=== PATIENT | female | born 1945 | race Caucasian/White ===

== ENCOUNTER 2016-03-07 07:52 | Day surgery (SDC) | payer MEDICARE, OTHER ==
[2016-03-01 11:08] VITALS: BMI 27.3
[2016-03-07] MEDS ORDERED: ASPIRIN 325 MG TAB PO STA (07:58)
[2016-03-07] MEDS ORDERED: NITROGLYCERIN SL TABS 0.4 MG TAB SUBLINGUAL PRN (07:58)
[2016-03-07] MEDS ORDERED: ATORVASTATIN 80 MG TAB PO STA (07:58)
[2016-03-07] MEDS ORDERED: ALPRAZolam 0.25 MG TAB PO PRN (07:58)
[2016-03-07] MEDS ORDERED: SODIUM CHLORIDE 0.9% 1,000 ML in EMPTY BAG 1 BAG IV ONE (07:58)
[2016-03-07] MEDS ORDERED: ALPRAZolam 0.5 MG TAB PO PRN (07:58)
[2016-03-07 08:25] VITALS: PULSE 81; RESP 20; TEMP 98.2
[2016-03-07] MEDS ORDERED: LIDOCAINE 2% INJ 20 MG/ML (20 ML MDV) ONE (09:56)
[2016-03-07] MEDS ORDERED: MIDAZOLAM 2 MG/2 ML VIAL ONE ×2 (09:56→10:17)
[2016-03-07] MEDS ORDERED: VERAPAMIL 2.5 MG/ML 2 ML AMP ONE (09:56)
[2016-03-07] MEDS ORDERED: diphenhydrAMINE 50 MG/ML 1 ML VIAL ONE (09:56)
[2016-03-07] MEDS ORDERED: SODIUM CHLORIDE 0.9% (PF) 10 ML VIAL ONE (09:57)
[2016-03-07] MEDS ORDERED: LIDOCAINE 2% INJ 20 MG/ML SQ ONE (10:13)
[2016-03-07] MEDS: VERAPAMIL SYRINGE (5 MG/10 ML) INTRAARTER ONE ×2 (10:13→10:24)
[2016-03-07] MEDS ORDERED: MIDAZOLAM 2 MG/2 ML VIAL IV ONE ×2 (10:13→10:18)
[2016-03-07] MEDS ORDERED: diphenhydrAMINE 50 MG/ML 1 ML VIAL IVP ONE (10:13)
[2016-03-07] MEDS ORDERED: HEPARIN SODIUM 1,000 UNIT/ML VIAL ONE (10:15)
[2016-03-07] MEDS ORDERED: HYDROmorphone 2 MG/ML 1 ML SYRINGE ONE (10:22)
[2016-03-07] MEDS ORDERED: IOHEXOL 350 MG/ML 100 ML BOTTLE INTRATHECA ONE (10:24)
[2016-03-07] MEDS ORDERED: HYDROmorphone 2 MG/ML 1 ML SYRINGE IV ONE (10:24)
[2016-03-07] MEDS ORDERED: SODIUM CHLORIDE 0.9% 1,000 ML IV ONE (10:25)
[2016-03-07] MEDS ORDERED: RX INFO: IV CONTRAST WAS GIVEN 1 EACH MISC MISCELLANE PRN (10:31)
[2016-03-07] MEDS ORDERED: SODIUM CHLORIDE 0.9% 1,000 ML IV SCH (10:45)
--- NOTE | 2016-03-07 10:45 | LTR ---
March 07, 2016 RE: Corky Cesia Hudson Dear Dr. Gonzalez: Ms. Cesia Fried underwent a heart catheterization and showed normal coronaries. I want to thank you for allowing me to participate in her care. Please do not hesitate to call if you have any questions or concerns. Sincerely, MIKE BUCKLEY MD
--- NOTE | 2016-03-07 10:50 | CC ---
DATE OF SERVICE: 03/07/2016 PERFORMING PHYSICIAN: Grayson Allen MD, youth services librarian. PROCEDURE PERFORMED: Selective right and left coronary angiogram. INDICATION: This is a pleasant 71-year-old female patient with a known COPD, who underwent a stress test recently in the office showed apical ischemia. The heart cath is to rule out any severe underlying CAD. APPROACH: Right radial artery. COMPLICATIONS: None. LEVEL OF SEDATION: Moderate. PROCEDURE DESCRIPTION: After obtaining an informed consent, the patient was brought to the cardiac assistant laboratory director. Right radial artery was cannulated using micropuncture technique. The micropuncture wire passed easily, then I placed a 6 Faroese sheath in the right radial artery. Subsequently I gave the patient 2 mg of verapamil IA and 3000 units of heparin IV. Subsequently, I did selective right and left coronary angiogram using JR4 and JL3 catheters. The procedure was completed without any complication. SELECTIVE CORONARY ANGIOGRAM: 1. The right coronary artery is a large-caliber vessel and it is a dominant vessel. It is angiographically normal. Distally bifurcates into PDA and PLV branches; both are angiographically normal. 2. The left main is a short left main, but angiographically normal. It bifurcates into the left circumflex and left anterior descending artery. 3. The left circumflex is a large-caliber vessel and it is a nondominant vessel. The proximal circumflex is angiographically normal. The mid circumflex is normal and gives rise into the first OM branch, which is a large-caliber vessel, seems to be angiographically normal. 4. The left anterior descending artery, the proximal LAD is angiographically normal. It gives rises into the first diagonal, which seems to be angiographically normal. The mid LAD is angiographically normal, but becomes tortuous. The LAD seems to be angiographically as well normal. CONCLUSION: 1. Normal coronary angiogram. 2. Short left main artery. 3. Dominant right coronary artery. POSTPROCEDURE MANAGEMENT: 1. Maximize medical treatment. 2. Follow up with the patient.
[2016-03-07 15:08] VITALS: BP 128/80
== END 2016-03-07 15:45 | disposition home or self-care (01) ==
LOC: CATHCVL 07:52
PROVIDERS: ATTEND Internal Medicine Interventional Cardiology
DX: R07.2 Precordial pain (principal); I47.1 Supraventricular tachycardia; I77.1 Stricture of artery; I10 Essential (primary) hypertension; J44.9 Chronic obstructive pulmonary disease, unspecified; E78.5 Hyperlipidemia, unspecified; J96.10 Chronic respiratory failure, unspecified whether with hypoxia or hypercapnia; Z99.81 Dependence on supplemental oxygen; Z87.891 Personal history of nicotine dependence; Z79.51 Long term (current) use of inhaled steroids; Z79.52 Long term (current) use of systemic steroids; Z79.899 Other long term (current) drug therapy
CPT/HCPCS: 93454; C1894; J2001; J2250; J1170; J1200; Q9967; J1644

== ENCOUNTER → 2016-03-21 | Outpatient (CLI) | payer MEDICARE, OTHER ==
--- NOTE | 2016-03-21 14:52 | CT ---
EXAMINATION TYPE: CT chest wo con DATE OF EXAM: 03/21/2016 1:13 PM COMPARISON: 02/15/2016 and 02/25/2015 HISTORY: 71 year-old female shortness of breath and cough TECHNIQUE: Contiguous axial scanning of the chest without IV contrast. Coronal and sagittal reconstru ctions performed. CT DLP: 251.6 mGycm Automated exposure control for dose reduction was used. FINDINGS: Heart is normal size without pericardial effusion. Coronary vessel calcifications are present and are remarkable for coronary artery disease. Ascending aorta is mildly ectatic at 3.6 cm with bovine configuration to the aortic arch. No thoracic lymphadenopathy seen. Moderate centrilobular emphysema and mild diffuse bronchial wall thickening And some patchy and strandy peripheral densities probably represent pleural parenchymal scarring. Quan e of these have resolved from the recent prior and some of the nodular densities at the peripheral ri ght base shows some interval improvement. Some minimal residual peripheral tree-in-bud opacities remain in the right lower lobe and peripheral right upper lobe at the midlung level but show improvement from the recent prior. Few scattered calcified granulomas are present. Visualized upper abdomen shows small hiatal hernia and cholelithiasis. Previously seen Lutz's arleen ia is not included on this exam. Bones: Mild endplate spondylosis lower thoracic spine. No osseous destructive process. Some chronic s uperior endplate Schmorl's nodes in the upper third thoracic spine. IMPRESSION: 1. REDEMONSTRATED COPD WITH SCATTERED AREAS OF PLEURAL-PARENCHYMAL SCARRING. 2. SOME OF THE PATCHY PERIPHERAL RIGHT BASILAR OPACITIES HAVE RESOLVED IN THE INTERVAL SUGGESTING CRISTIN ARING OF INFECTIOUS/INFLAMMATORY INFILTRATES OR AREAS OF ATELECTASIS. 3. THERE ARE SOME RESIDUAL TREE-IN-BUD OPACITIES IN THE RIGHT LUNG. THESE HAVE ALSO SHOWN SLIGHT INTE RVAL IMPROVEMENT. SOME DIFFERENTIAL CONSIDERATIONS PROVIDED ON THE 02/15/2016 EXAM.
== END | disposition home or self-care (01) ==
LOC: RADCTMAIN 12:55
PROVIDERS: ATTEND Internal Medicine
DX: J44.9 Chronic obstructive pulmonary disease, unspecified (principal); J98.4 Other disorders of lung; R91.8 Other nonspecific abnormal finding of lung field
CPT/HCPCS: 71250

== ENCOUNTER → 2016-06-20 | Outpatient (CLI) | payer MEDICARE, OTHER ==
--- NOTE | 2016-06-20 13:21 | CT ---
EXAMINATION TYPE: CT chest wo con DATE OF EXAM: 06/20/2016 12:15 PM COMPARISON: Chest CT March 21, 2016 HISTORY: SOB cough. CT DLP: 312.5 mGycm. Automated Exposure Control for Dose Reduction was Utilized. TECHNIQUE: CT scan of the thorax is performed without IV contrast. FINDINGS: LUNGS: Mild to moderate underlying emphysematous changes are redemonstrated. There is no suspicious n ew groundglass opacity or focal consolidation. Mild cylindrical bronchiectatic changes in the right l ower lobe is felt present. No suspicious greater than 4 mm noncalcified parenchymal nodule or mass is seen bilaterally. No pleural effusion or pneumothorax is noted. Some right-sided volume loss is felt present and stable. Some scattered right hilar and basilar scarring is noted. Some patchy peripheral opacities posterior right lower lobe remain present near axial image 34. MEDIASTINUM: Lack of IV contrast is noted to limit evaluation for mediastinal and especially hilar ad enopathy. There are no definitive greater than 1 cm hilar or mediastinal lymph nodes. No cardiomega ly or pericardial effusion is seen. Some coronary artery calcification is again seen. Bovine aortic a rch is redemonstrated which is normal variant. There is mild calcified plaque of the visualized aorta . Ascending aorta measures 3.7 cm in diameter on axial image 26 felt stable. OTHER: Dependent calcified small gallstones are redemonstrated. There is probable 2.5 cm duodenal div erticulum partially imaged on axial image 63. IMPRESSION: Mild to moderate emphysematous change with scattered areas of scarring, no new infiltrate is present.
== END ==
LOC: RADCTMAIN 11:47
PROVIDERS: ATTEND Internal Medicine
DX: J43.9 Emphysema, unspecified (principal)
CPT/HCPCS: 71250

== ENCOUNTER → 2017-03-12 | Outpatient (CLI) | payer MEDICARE, OTHER ==
--- NOTE | 2017-03-12 16:31 | US ---
EXAMINATION TYPE: US transvaginal DATE OF EXAM: 03/12/2017 COMPARISON: NONE CLINICAL HISTORY: N95.0 Postmenopausal bleeding,Z68.29 BMI 29.0-29.9. Patient stated has had intermit tent vaginal bleeding x 5 years; COPD; ; bilateral ovary removed per patient; had abscess/adhesio ns RT adnexa TECHNIQUE: Transabdominal (TA) Date of LMP: post menopausal EXAM MEASUREMENTS: Uterus: 8.4 x 6.3 x 4.7 cm Endometrial Stripe: 3.2 cm Right Ovary: surgically removed Left Ovary: surgically removed 1. Uterus: Anteverted; couple of round complex masses (fibroids) imaged with larger upper right = 1. 9 x 2.4 x 1.9cm and lower left = 1.0 x 1.0 x 1.1cm 2. Endometrium: abnormally thickened with complex appearance entire endometrial cavity = 6.5 x 4.3 x 3.2cm with internal vascularity seen in contents 3. Right Ovary: not identified 4. Left Ovary: none seen 5. Bilateral Adnexa: complex mass with calcifications noted adjacent to uterus = 3.6 x 5.1 x 3.9cm ( possible adnexal mass vs exophytic uterine fibroid 6. Posterior cul-de-sac: wnl IMPRESSION: 1. Significantly thickened and abnormal appearance of the endometrium. Direct visualization is recomm ended to exclude underlying malignancy. 2. Possible uterine leiomyomas. Masses of other etiology not excluded. 3. Complex right adnexal mass. Underlying malignancy not excluded.
== END | disposition home or self-care (01) ==
LOC: RADUSWWP 15:36
PROVIDERS: ATTEND Family Medicine
DX: R93.8 Abnormal findings on diagnostic imaging of other specified body structures (principal); R19.09 Other intra-abdominal and pelvic swelling, mass and lump; N95.0 Postmenopausal bleeding
CPT/HCPCS: 76830

== ENCOUNTER 2017-04-20 11:06 | Inpatient (IN) | payer MEDICARE, OTHER ==
[2017-04-20] MEDS ORDERED: TOPICAL SKIN ADHESIVE 1 EACH AMP TOPICAL ONE (11:46)
--- NOTE | 2017-04-20 11:46 | ED ---
General Adult HPI - General Chief complaint: Syncope Stated complaint: Syncope Time Seen by Provider: 04/20/17 11:27 Source: patient, RN notes reviewed Mode of arrival: EMS Limitations: no limitations - History of Present Illness Initial comments: Patient is a pleasant 72-year-old female presenting to the emergency department following syncopal episode. Patient was going to shower when she woke up on the floor. Patient did strike her head. Patient does have moderate headache. No weakness. Patient also complains of some discomfort of the left hip and left lower abdomen. No chest pain or dyspnea. Patient is pending uterine biopsy at [facility] for further evaluation. - Related Data Home Medications Medication Instructions Recorded Confirmed Lisinopril 40 mg PO DAILY 02/20/15 04/20/17 Sertraline HCl [Zoloft] 50 mg PO DAILY 02/20/15 04/20/17 Simvastatin [Zocor] 40 mg PO HS 02/20/15 04/20/17 Albuterol Sulfate [Proair Hfa] 2 puff INHALATION RT-Q4H PRN 03/01/16 04/20/17 Diltiazem Cd [Cardizem CD] 240 mg PO DAILY 03/01/16 04/20/17 Flaxseed Oil [Arvonia-3 Flaxseed Oil] 1,000 mg PO DAILY 03/01/16 04/20/17 Furosemide [Lasix] 20 mg PO DAILY PRN 03/01/16 04/20/17 Ipratropium/Albuterol Sulfate 1 puff INHALATION RT-QID 03/01/16 04/20/17 [Combivent Respimat Inhaler] Melatonin 3 mg PO HS 03/01/16 04/20/17 Montelukast Sodium [Singulair] 10 mg PO HS 03/01/16 04/20/17 Arvonia-3 Fatty Acids/Fish Oil [Fish 1 each PO DAILY 03/01/16 04/20/17 Oil 1,000 mg Softgel] Ranitidine HCl [Zantac] 150 mg PO BID 03/01/16 04/20/17 predniSONE 10 mg PO DAILY 03/01/16 04/20/17 Budesonide [Pulmicort] 0.5 mg INHALATION RT-BID 04/20/17 04/20/17 Prasterone (Dhea) [Dhea] 50 mg PO DAILY 04/20/17 04/20/17 Previous Rx's Medication Instructions Recorded ALPRAZolam [Xanax] 0.5 mg PO TID PRN #20 tab 03/02/15 Allergies Allergy/AdvReac Type Severity Reaction Status Date / Time No Known Allergies Allergy Verified 04/20/17 11:42 Review of Systems ROS Statement: Those systems with pertinent positive or pertinent negative responses have been documented in the HPI. ROS Other: All systems not noted in ROS Statement are negative. Constitutional: Denies: fever Eyes: Denies: eye pain ENT: Denies: ear pain Respiratory: Denies: cough Cardiovascular: Denies: chest pain Endocrine: Denies: fatigue Gastrointestinal: Reports: abdominal pain Genitourinary: Denies: dysuria Musculoskeletal: Denies: back pain Skin: Denies: rash Neurological: Reports: headache. Denies: weakness, confusion Past Medical History Past Medical History: Asthma, Chest Pain / Angina, COPD, GERD/Reflux, Hyperlipidemia, Hypertension, Pneumonia Additional Past Medical History / Comment(s): hx migraine, oxygen NC @2L continuous, gallstones, anemia, History of Any Multi-Drug Resistant Organisms: None Reported Past Surgical History: Heart Catheterization, Hernia Repair, Orthopedic Surgery , Tonsillectomy Additional Past Surgical History / Comment(s): left elbow surgery, abscess in stomach area, abdominial scar tissue, tamie oophorectomy, left knee surgery, Past Anesthesia/Blood Transfusion Reactions: No Reported Reaction Past Psychological History: Anxiety, Depression Smoking Status: Former smoker Past Alcohol Use History: None Reported Past Drug Use History: None Reported - Past Family History Mother Family Medical History: No Reported History Father Family Medical History: CVA/TIA, Myocardial Infarction ([place]) General Exam Limitations: no limitations General appearance: alert, in no apparent distress Head exam: Present: other (Left eyebrow laceration) Eye exam: Present: normal appearance, PERRL, EOMI ENT exam: Present: normal oropharynx Neck exam: Present: normal inspection. Absent: tenderness Respiratory exam: Present: normal lung sounds bilaterally Cardiovascular Exam: Present: regular rate, normal rhythm GI/Abdominal exam: Present: soft, tenderness (Mild tenderness suprapubic and left lower quadrant). Absent: distended Extremities exam: Present: other (Mild tenderness left hip. Pain with active range of motion.) Neurological exam: Present: alert, oriented X3, CN II-XII intact. Absent: motor sensory deficit Expanded Neurological exam: Present: protecting the airway Patient oriented to: Present: person, place, time Speech: Present: fluid speech Cranial nerves: EOM's Intact: Normal Sensory exam: Upper Extremity Light Touch: Normal, Lower Extremity Light Touch: Normal Motor strength exam: RUE: 5, LUE: 5, RLE: 5, LLE: 5 Eye Response: (4) open spontaneously Motor Response: (6) obeys commands Verbal Response: (5) oriented Psychiatric exam: Present: normal affect, normal mood Skin exam: Present: normal color Course Vital Signs 04/20/17 04/20/17 11:24 14:12 Temperature 97.5 F L Pulse Rate 75 82 Respiratory 18 18 Rate Blood Pressure 149/73 133/61 O2 Sat by Pulse 96 98 Oximetry - Reevaluation(s) Reevaluation #1: 04/20/17 13:12 Patient reevaluated and updated. Patient had previously refused pain medication however is acceptable to her at this time. EKG Findings - EKG Comments: EKG Findings:: Normal sinus rhythm 68. IA 164. QRS 84. QT 320. QTc 446. Normal axis. Normal QRS. No acute ST change. Procedures - Laceration Laceration #1 Consent Obtained: verbal consent Time Out Performed: Yes Indication: laceration Site: face Size (cm): 3 Description: linear Depth: simple, single layer Pre-repair: irrigated extensively Type of Sutures: other (Closed with Dermabond) Patient Tolerated Procedure: well, no complications Medical Decision Making - Medical Decision Making Patient was updated on results and plan. Case was discussed with Dr. Rob, who will admit for Dr. Henning. Orthopedics will be consult. - Lab Data Result diagrams: 04/20/17 11:20 04/20/17 11:20 Lab Results 04/20/17 04/20/17 04/20/17 Range/Units 11:20 11:20 11:20 WBC 14.4 H (3.8-10.6) k/uL RBC 4.38 (3.80-5.40) m/uL Hgb 13.3 (11.4-16.0) gm/dL Hct 41.7 (34.0-46.0) % MCV 95.2 (80.0-100.0) fL MCH 30.3 (25.0-35.0) pg MCHC 31.8 (31.0-37.0) g/dL RDW 13.0 (11.5-15.5) % Plt Count 289 (150-450) k/uL Neutrophils % 89 % Lymphocytes % 7 % Monocytes % 2 % Eosinophils % 0 % Basophils % 0 % Neutrophils # 12.8 H (1.3-7.7) k/uL Lymphocytes # 1.0 (1.0-4.8) k/uL Monocytes # 0.4 (0-1.0) k/uL Eosinophils # 0.1 (0-0.7) k/uL Basophils # 0.1 (0-0.2) k/uL PT (9.0-12.0) sec INR (<1.2) APTT (22.0-30.0) sec Sodium 142 (137-145) mmol/L Potassium 4.3 (3.5-5.1) mmol/L Chloride 103 (98-107) mmol/L Carbon Dioxide 31 H (22-30) mmol/L Anion Gap 8 mmol/L BUN 18 H (7-17) mg/dL Creatinine 0.64 (0.52-1.04) mg/dL Est GFR (MDRD) Af Amer >60 (>60 ml/min/1.73 sqM) Est GFR (MDRD) Non-Af >60 (>60 ml/min/1.73 sqM) Glucose 112 H (74-99) mg/dL Calcium 9.3 (8.4-10.2) mg/dL Total Bilirubin 0.2 (0.2-1.3) mg/dL AST 21 (14-36) U/L ALT 36 (9-52) U/L Alkaline Phosphatase 48 (38-126) U/L Total Creatine Kinase 46 (30-135) U/L CK-MB (CK-2) 1.0 (0.0-2.4) ng/mL CK-MB (CK-2) Rel Index 2.2 Troponin I <0.012 (0.000-0.034) ng/mL Total Protein 6.1 L (6.3-8.2) g/dL Albumin 3.7 (3.5-5.0) g/dL 02/23/18 Range/Units 11:20 WBC (3.8-10.6) k/uL RBC (3.80-5.40) m/uL Hgb (11.4-16.0) gm/dL Hct (34.0-46.0) % MCV (80.0-100.0) fL MCH (25.0-35.0) pg MCHC (31.0-37.0) g/dL RDW (11.5-15.5) % Plt Count (150-450) k/uL Neutrophils % % Lymphocytes % % Monocytes % % Eosinophils % % Basophils % % Neutrophils # (1.3-7.7) k/uL Lymphocytes # (1.0-4.8) k/uL Monocytes # (0-1.0) k/uL Eosinophils # (0-0.7) k/uL Basophils # (0-0.2) k/uL PT 9.7 (9.0-12.0) sec INR 1.0 (<1.2) APTT 22.1 (22.0-30.0) sec Sodium (137-145) mmol/L Potassium (3.5-5.1) mmol/L Chloride (98-107) mmol/L Carbon Dioxide (22-30) mmol/L Anion Gap mmol/L BUN (7-17) mg/dL Creatinine (0.52-1.04) mg/dL Est GFR (MDRD) Af Amer (>60 ml/min/1.73 sqM) Est GFR (MDRD) Non-Af (>60 ml/min/1.73 sqM) Glucose (74-99) mg/dL Calcium (8.4-10.2) mg/dL Total Bilirubin (0.2-1.3) mg/dL AST (14-36) U/L ALT (9-52) U/L Alkaline Phosphatase (38-126) U/L Total Creatine Kinase (30-135) U/L CK-MB (CK-2) (0.0-2.4) ng/mL CK-MB (CK-2) Rel Index Troponin I (0.000-0.034) ng/mL Total Protein (6.3-8.2) g/dL Albumin (3.5-5.0) g/dL - Radiology Data Radiology results: report reviewed (Computed tomography scan of the abdomen and pelvis shows fluid within the endometrium. Abdominal wall hernia. Sub-xiphoid region with short segment of transverse colon. Computed tomography scan of the brain shows no acute abnormality.), image reviewed (Two-view chest x-ray shows no acute process. X-ray of the left hip and pelvis shows nondisplaced left femoral neck fracture.) Disposition Clinical Impression: Syncope, Hip fracture Disposition: ADMITTED IP TO THIS [facility] Referrals: Tory Gonzalez MD [Primary Care Provider] - 1-2 days Decision Time: 14:20
[2017-04-20] MEDS ORDERED: RX INFO: IV CONTRAST WAS GIVEN 1 EACH MISC MISCELLANE PRN (11:47)
[2017-04-20 11:57] LABS: Basophils # (A) 0.1 k/uL (0-0.2); Basophils % (A) 0 %; Eosinophils # (A) 0.1 k/uL (0-0.7); Eosinophils % (A) 0 %; HCT 41.7 % (34.0-46.0); HGB 13.3 gm/dL (11.4-16.0); Lymphocytes % (A) 7 %; MCH 30.3 pg (25.0-35.0); MCHC 31.8 g/dL (31.0-37.0); MCV 95.2 fL (80.0-100.0); Mean Platelet Volume 6.9; Monocytes # (A) 0.4 k/uL (0-1.0); Monocytes % (A) 2 %; Neutrophils # (A) 12.8 k/uL (1.3-7.7); Neutrophils % (A) 89 %; Platelet Count 289 k/uL (150-450); RBC 4.38 m/uL (3.80-5.40); WBC 14.4 k/uL (3.8-10.6)
[2017-04-20 12:07] LABS: ALT 36 U/L (9-52); AST 21 U/L (14-36); Albumin 3.7 g/dL (3.5-5.0); Alkaline Phosphatase 48 U/L (38-126); Anion Gap 8 mmol/L; Blood Urea Nitrogen 18 mg/dL (7-17); Calcium 9.3 mg/dL (8.4-10.2); Carbon Dioxide 31 mmol/L (22-30); Chloride 103 mmol/L (98-107); Glucose 112 mg/dL (74-99); Potassium 4.3 mmol/L (3.5-5.1); Sodium 142 mmol/L (137-145); Total Bilirubin 0.2 mg/dL (0.2-1.3); Total Protein 6.1 g/dL (6.3-8.2)
[2017-04-20 12:09] LABS: Partial Thromboplastin Time 22.1 sec (22.0-30.0); Prothrombin Time 9.7 sec (9.0-12.0)
[2017-04-20 12:21] LABS: Creatine Kinase 46 U/L (30-135)
[2017-04-20 12:34] LABS: Troponin I <0.012 ng/mL (0.000-0.034)
--- NOTE | 2017-04-20 12:35 | XR ---
EXAMINATION TYPE: XR chest 1V DATE OF EXAM: 04/20/2017 COMPARISON: Prior chest x-ray 04/21/2015 HISTORY: Syncope TECHNIQUE: Single frontal view of the chest is obtained. FINDINGS: The patient is rotated. There are overlying cardiac leads. Prominent lung volume may be ind icative of underlying COPD. There is no focal air space opacity, pleural effusion, or pneumothorax se en. The cardiac silhouette size is within normal limits. The osseous structures are intact. IMPRESSION: No acute process. Rotated exam. Follow-up as indicated.
--- NOTE | 2017-04-20 12:37 | XR ---
EXAMINATION TYPE: XR Hip LT and AP Pelvis DATE OF EXAM: 04/20/2017 COMPARISON: None HISTORY: Trauma and pain TECHNIQUE: A single AP view of the pelvis is obtained. Two views of the left hip are obtained. FINDINGS: Nondisplaced left femoral neck fracture is present. There is no dislocation. Bone mineraliz ation is reduced. Calcifications in the right hemipelvis may be due to fibroid uterus. Osteoarthritic change noted to the right hip. IMPRESSION: Nondisplaced left femoral neck fracture.
[2017-04-20] MEDS ORDERED: MORPHINE SULFATE 4 MG/ML SYRINGE IVP STA (13:13)
--- NOTE | 2017-04-20 13:53 | CT ---
EXAMINATION TYPE: CT brain wo con DATE OF EXAM: 04/20/2017 COMPARISON: NONE HISTORY: Patient complains of syncopal episode. CT DLP: 790.4 mGycm Automated exposure control for dose reduction was used. Helical acquisition through the brain. FINDINGS: There is no hemorrhage or hydrocephalus. Cerebral vascular calcifications are present. Brain density is maintained. Mild atrophy is likely age-related. Calvarium is intact. Paranasal sinuses and mastoid air cells as visualized are normal. IMPRESSION: NO ACUTE ABNORMALITIES EVIDENT, CONSIDER FOLLOW-UP INDICATED.
--- NOTE | 2017-04-20 14:03 | CT ---
EXAMINATION TYPE: CT abdomen pelvis w con DATE OF EXAM: 04/20/2017 COMPARISON: NONE HISTORY: Patient complains of left flank pain post syncopal episode. CT DLP: 761.9 mGycm Automated exposure control for dose reduction was used. TECHNIQUE: Helical acquisition of images from the lung bases through the pelvis have been completed. CONTRAST: Performed with Oral Contrast and with IV Contrast, patient injected with 100 mL of Omnipaque 300. FINDINGS: LUNG BASES: No significant abnormality is appreciated. AORTA: No significant abnormality is appreciated. LIVER/GB: Gallbladder shows dependent high density compatible with stones. Liver shows no mass. PANCREAS: No significant abnormality is seen. SPLEEN: No significant abnormality is seen. ADRENALS: No significant abnormality is seen. KIDNEYS: No significant abnormality is seen. REPRODUCTIVE ORGANS: The uterus is enlarged. There is fluid within the uterus. Multiple fibroids, bernardo cification associated with the fibroids noted. BOWEL: Extensive diverticular changes associated with the sigmoid colon. No evident bowel obstructio n. Anterior abdominal wall shows a small hernia with a short segment of transverse colon within the h ernia, no evident bowel obstruction however. Small duodenal diverticulum is suspected at the junction between the second and third portion of the duodenum at the level of the head of pancreas. Left lowe r quadrant shows a small anterior abdominal wall hernia containing fat. FREE AIR: No Free Air visible. ASCITES: None visible. PELVIC ADENOPATHY: None visualized. RETROPERITONEAL ADENOPATHY: No Retroperitoneal Adenopathy visible. URINARY BLADDER: No significant abnormality is seen. OSSEOUS STRUCTURES: No significant abnormality is seen. IMPRESSION: ABNORMAL FLUID WITHIN THE ENDOMETRIUM WITH MULTIPLE AREAS OF PROBABLE FIBROID UTERUS. RECOMMEND LAND ACQUISITION ANALYST C ONSULT, CONSIDER ENDOMETRIAL BIOPSY. ANTERIOR ABDOMINAL WALL HERNIA CONTAINS FAT IN THE LEFT LOWER QU ADRANT, IN THE SUBXIPHOID REGION THERE IS A FOCUS THAT CONTAINS SOME SHORT SEGMENT OF TRANSVERSE COLO N. CORRELATE TO EXCLUDE INCARCERATION. Cholelithiasis.
[2017-04-20] MEDS ORDERED: NALOXONE 0.4 MG/ML 1 ML VIAL IV PRN (14:20)
[2017-04-20] MEDS: SODIUM CHLORIDE 0.9% 1,000 ML IV SCH ×3 (15:03→18:36)
[2017-04-20 15:06] LABS: Appearance,Urine Clear (Clear); Bacteria,Urine Rare /hpf; Bilirubin,Urine Negative (Negative); Blood,Urine Negative (Negative); Color,Urine Yellow; Glucose,Urine (UA) Negative (Negative); Ketones,Urine Negative (Negative); Leukocyte Esterase,Urine Trace (Negative); Nitrite,Urine Negative (Negative); Protein,Urine Negative (Negative); RBC,Urine 1 /hpf (0-5); Squamous Epithelial Cell,Urine 4 /hpf (0-4); Urobilinogen,Urine <2.0 mg/dL (<2.0); WBC,Urine 8 /hpf (0-5)
[2017-04-20 15:51] VITALS: BMI 28.7
[2017-04-20 17:26] LABS: Creatine Kinase 67 U/L (30-135)
[2017-04-20 17:37] LABS: Creatine Kinase MB 1.1 ng/mL (0.0-2.4); Troponin I <0.012 ng/mL (0.000-0.034)
[2017-04-20] MEDS ORDERED: ALBUTEROL NEBULIZED 2.5 MG/3 ML INHALATION PRN (17:44)
--- NOTE | 2017-04-20 17:58 | P.HPIM ---
History of Present Illness 72-year-old female presenting to the emergency department following syncopal episode. Patient was going to shower when she woke up on the floor. Patient did strike her head. Patient does have moderate headache. No weakness. Patient also complains of some discomfort of the left hip and left lower abdomen. No chest pain or dyspnea. Patient is pending uterine biopsy at [facility] for further evaluation. Patient's EKG showed normal sinus rhythm patient denied any diarrhea nausea vomiting fever chills patient is comparing of left lower quadrant abdominal pain CAT scan of the abdomen did show uterine fibroids and the possible incarceration but patient does not have any incarcerated ventral hernia and clinical exam patient. Patient is on Cardizem and lisinopril recently Dr. Allen her first cook decreased her antidepressant medications because of dizziness. Patient is on lisinopril 40 mg and Cardizem. Patient is not on anti- correlation she was told that she has some irregular heartbeat because of which she was started on Cardizem. Although there is no documentation of atrial fibrillation. I do not have any echo cardiac exam available. Since patient is on Cardizem I am assuming that her ejection fraction is within normal limits repeat echo cardiac exam will be obtained cardiology was consulted. Patient had a left hip fracture from fall for because of which also surgery was consulted and patient was started on oral for pain with GI prophylaxis. Patient does have COPD he quit smoking years ago has COPD is fairly stable patient is low to intermediate operative risk for left hip surgery Review of Systems REVIEW OF SYSTEMS: CONSTITUTIONAL: No fever, no malaise, no fatigue. HEENT: No recent visual problems or hearing problems. Denied any sore throat. CARDIOVASCULAR: No chest pain, orthopnea, PND, no palpitations, PULMONARY: No shortness of breath, no cough, no hemoptysis. GASTROINTESTINAL: No diarrhea, no nausea, no vomiting, no abdominal pain. Normoactive bowel sounds. NEUROLOGICAL: No headaches, no weakness, no numbness. HEMATOLOGICAL: Denies any bleeding or petechiae. GENITOURINARY: Denies any burning micturition, frequency, or urgency. MUSCULOSKELETAL/RHEUMATOLOGICAL: Left hip pain as mentioned above ENDOCRINE: Denies any polyuria or polydipsia. The rest of the 14-point review of systems is negative. Past Medical History Past Medical History: Asthma, Chest Pain / Angina, COPD, GERD/Reflux, Hyperlipidemia, Hypertension, Pneumonia Additional Past Medical History / Comment(s): oxygen [place] @2L continuous, gallstones, pernicious anemia, History of Any Multi-Drug Resistant Organisms: None Reported Past Surgical History: Hernia Repair, Orthopedic Surgery, Tonsillectomy Additional Past Surgical History / Comment(s): left elbow surgery, abscess in stomach area, abdominial scar tissue, tamie oophorectomy, left knee surgery, Past Anesthesia/Blood Transfusion Reactions: No Reported Reaction Past Psychological History: Anxiety, Depression Smoking Status: Former smoker Past Alcohol Use History: None Reported Additional Past Alcohol Use History / Comment(s): quit smoking 2008, smoked since age 18, 2 PPD Past Drug Use History: None Reported - Past Family History Mother Family Medical History: No Reported History Father Family Medical History: CVA/TIA, Myocardial Infarction ([place]) Medications and Allergies Home Medications Medication Instructions Recorded Confirmed Type Lisinopril 40 mg PO DAILY 02/20/15 04/20/17 History Sertraline HCl [Zoloft] 50 mg PO DAILY 02/20/15 04/20/17 History Simvastatin [Zocor] 40 mg PO HS 02/20/15 04/20/17 History ALPRAZolam [Xanax] 0.5 mg PO TID PRN #20 tab 03/02/15 04/20/17 Rx Albuterol Sulfate [Proair Hfa] 2 puff INHALATION RT-Q4H PRN 03/01/16 04/20/17 History Diltiazem Cd [Cardizem CD] 240 mg PO DAILY 03/01/16 04/20/17 History Flaxseed Oil [[place]-3 Flaxseed Oil] 1,000 mg PO DAILY 03/01/16 04/20/17 History Furosemide [Lasix] 20 mg PO DAILY PRN 03/01/16 04/20/17 History Ipratropium/Albuterol Sulfate 1 puff INHALATION RT-QID 03/01/16 04/20/17 History [Combivent Respimat Inhaler] Melatonin 3 mg PO HS 03/01/16 04/20/17 History Montelukast Sodium [Singulair] 10 mg PO HS 03/01/16 04/20/17 History [place]-3 Fatty Acids/Fish Oil [Fish 1 each PO DAILY 03/01/16 04/20/17 History Oil 1,000 mg Softgel] Ranitidine HCl [Zantac] 150 mg PO BID 03/01/16 04/20/17 History predniSONE 10 mg PO DAILY 03/01/16 04/20/17 History Budesonide [Pulmicort] 0.5 mg INHALATION RT-BID 04/20/17 04/20/17 History Prasterone (Dhea) [Dhea] 50 mg PO DAILY 04/20/17 04/20/17 History Allergies Allergy/AdvReac Type Severity Reaction Status Date / Time No Known Allergies Allergy Verified 04/20/17 11:42 Physical Exam Vitals: Vital Signs Temp Pulse Pulse Resp BP BP Pulse Ox 04/20/17 16:00 97.6 F 70 18 99/60 97 04/20/17 15:12 96.9 F L 72 22 132/72 96 04/20/17 14:59 97.6 F 70 18 99/60 97 04/20/17 14:12 82 18 133/61 98 04/20/17 11:24 97.5 F L 75 18 149/73 96 Intake and Output 04/20/17 04/20/17 04/20/17 06:59 14:59 22:59 Output Total 600 Balance -600 Output: Urine 600 Other: Voiding Method Bedpan # Voids 1 # Bowel Movements 1 Weight 73.482 kg Patient Weight 04/21/17 06:59 Weight 73.482 kg PHYSICAL EXAMINATION: GENERAL: The patient is alert and oriented x3, not in any acute distress. Well developed, well nourished. HEENT: Pupils are round and equally reacting to light. EOMI. No scleral icterus. No conjunctival pallor. Normocephalic, atraumatic. No pharyngeal erythema. No thyromegaly. CARDIOVASCULAR: S1 and S2 present. No murmurs, rubs, or gallops. PULMONARY: Chest is clear to auscultation, no wheezing or crackles. ABDOMEN: Soft, nontender, nondistended, normoactive bowel sounds. No palpable organomegaly. MUSCULOSKELETAL: Deferred to orthopedic surgery EXTREMITIES: No cyanosis, clubbing, or pedal edema. NEUROLOGICAL: Gross neurological examination did not reveal any focal deficits. SKIN: No rashes. Results CBC & Chem 7: 04/20/17 11:20 04/20/17 11:20 Labs: Abnormal Lab Results - Last 24 Hours (Table) 04/20/17 04/20/17 04/20/17 Range/Units 11:20 11:20 14:55 WBC 14.4 H (3.8-10.6) k/uL Neutrophils # 12.8 H (1.3-7.7) k/uL Carbon Dioxide 31 H (22-30) mmol/L BUN 18 H (7-17) mg/dL Glucose 112 H (74-99) mg/dL Total Protein 6.1 L (6.3-8.2) g/dL Ur Leukocyte Esterase Trace H (Negative) Urine WBC 8 H (0-5) /hpf Urine Bacteria Rare H (None) /hpf Thrombosis Risk Factor Assmnt - Choose All That Apply Any of the Below Risk Factors Present?: Yes Each Factor Represents 1 point: Abnormal pulmonary function (COPD), Obesity ( BMI >25) Other Risk Factors: Yes Each Risk Factor Represents 2 Points: Age 61-74 years Other congenital or acquired thrombophilia - If yes, enter type in comment: Yes Each Risk Factor Represents 5 Points: Hip, pelvis, or leg fracture (< 1 month) Thrombosis Risk Factor Assessment Total Risk Factor Score: 9 Thrombosis Risk Factor Assessment Level: High Risk Assessment and Plan Plan: -Syncope: Secondary to hypotension may be medication related lisinopril will be held with concerns of tachycardia patient will be resumed on Cardizem from tomorrow morning patient did take her medications today. Patient will be started on IV fluids because of hypotension I'm assuming her ejection fraction is within normal limits echocardiogram will be obtained. -Left hip fracture patient will be on Pepcid and ketorolac for pain -COPD without any acute exacerbation patient is on systemic steroids at this time along with inhaled treatments which will be continued -Hyperlipidemia Gastroesophageal reflux disease For above-mentioned chronic medical problems patient will be resumed on appropriate home medications
--- NOTE | 2017-04-20 18:04 | P.CNOR ---
History of Present Illness - [facility] Consult date: 04/20/17 Consult reason: fracture (Left hip) History of present illness: This is a 72-year-old female who had a syncopal episode this morning causing her to fall and sustained injury to her left hip. She was seen in the emergency department and admitted to the selective care unit for further evaluation regarding the syncopal episode. We're consulted regarding her left femoral neck fracture. Past Medical History Past Medical History: Asthma, Chest Pain / Angina, COPD, GERD/Reflux, Hyperlipidemia, Hypertension, Pneumonia Additional Past Medical History / Comment(s): oxygen [place] @2L continuous, gallstones, pernicious anemia, History of Any Multi-Drug Resistant Organisms: None Reported Past Surgical History: Hernia Repair, Orthopedic Surgery, Tonsillectomy Additional Past Surgical History / Comment(s): left elbow surgery, abscess in stomach area, abdominial scar tissue, tamie oophorectomy, left knee surgery, Past Anesthesia/Blood Transfusion Reactions: No Reported Reaction Past Psychological History: Anxiety, Depression Smoking Status: Former smoker Past Alcohol Use History: None Reported Additional Past Alcohol Use History / Comment(s): quit smoking 2008, smoked since age 18, 2 PPD Past Drug Use History: None Reported - Past Family History Mother Family Medical History: No Reported History Father Family Medical History: CVA/TIA, Myocardial Infarction ([place]) Medications and Allergies Home Medications Medication Instructions Recorded Confirmed Type Lisinopril 40 mg PO DAILY 02/20/15 04/20/17 History Sertraline HCl [Zoloft] 50 mg PO DAILY 02/20/15 04/20/17 History Simvastatin [Zocor] 40 mg PO HS 02/20/15 04/20/17 History ALPRAZolam [Xanax] 0.5 mg PO TID PRN #20 tab 03/02/15 04/20/17 Rx Albuterol Sulfate [Proair Hfa] 2 puff INHALATION RT-Q4H PRN 03/01/16 04/20/17 History Diltiazem Cd [Cardizem CD] 240 mg PO DAILY 03/01/16 04/20/17 History Flaxseed Oil [[place]-3 Flaxseed Oil] 1,000 mg PO DAILY 03/01/16 04/20/17 History Furosemide [Lasix] 20 mg PO DAILY PRN 03/01/16 04/20/17 History Ipratropium/Albuterol Sulfate 1 puff INHALATION RT-QID 03/01/16 04/20/17 History [Combivent Respimat Inhaler] Melatonin 3 mg PO HS 03/01/16 04/20/17 History Montelukast Sodium [Singulair] 10 mg PO HS 03/01/16 04/20/17 History [place]-3 Fatty Acids/Fish Oil [Fish 1 each PO DAILY 03/01/16 04/20/17 History Oil 1,000 mg Softgel] Ranitidine HCl [Zantac] 150 mg PO BID 03/01/16 04/20/17 History predniSONE 10 mg PO DAILY 03/01/16 04/20/17 History Budesonide [Pulmicort] 0.5 mg INHALATION RT-BID 04/20/17 04/20/17 History Prasterone (Dhea) [Dhea] 50 mg PO DAILY 04/20/17 04/20/17 History Allergies Allergy/AdvReac Type Severity Reaction Status Date / Time No Known Allergies Allergy Verified 04/20/17 11:42 Physical Examination This is a pleasant 72-year-old female in no acute distress. She is alert and oriented 3. Exam of the head neck reveal no obvious deformity. There is some ecchymosis about the left brow line. She has full cervical spine motion without difficulty or pain. There is no pain to palpation about cervical spine or paraspinal musculature. Exam the upper extremities is unremarkable. She has full shoulder, elbow, wrist and finger motion. Neurovascular status to the upper extremities is intact. Exam of the lower extremities reveals no obvious deformity. She is able to move the left leg independently in bed with some pain. There is mild pain with internal and external rotation of the hip. She has full foot and ankle motion bilaterally. Neurovascular status to the lower extremities is intact. Results X-rays of the pelvis and left hip reveal a nondisplaced fracture at the base of the femoral neck. No other fractures identified. - Labs Labs: Abnormal Lab Results - Last 24 Hours (Table) 04/20/17 04/20/17 04/20/17 Range/Units 11:20 11:20 14:55 WBC 14.4 H (3.8-10.6) k/uL Neutrophils # 12.8 H (1.3-7.7) k/uL Carbon Dioxide 31 H (22-30) mmol/L BUN 18 H (7-17) mg/dL Glucose 112 H (74-99) mg/dL Total Protein 6.1 L (6.3-8.2) g/dL Ur Leukocyte Esterase Trace H (Negative) Urine WBC 8 H (0-5) /hpf Urine Bacteria Rare H (None) /hpf H & H 04/20/17 Range/Units 11:20 Hgb 13.3 (11.4-16.0) gm/dL Hct 41.7 (34.0-46.0) % Coagulation 04/20/17 Range/Units 11:20 INR 1.0 (<1.2) Result Diagrams: 04/20/17 11:20 04/20/17 11:20 Assessment and Plan (1) Nondisplaced fracture of neck of left femur Current Visit: Yes Status: Acute Code(s): S72.002A - FRACTURE OF UNSP PART OF NECK OF LEFT FEMUR, INIT SNOMED Code(s): 2657531 (2) Syncope Current Visit: Yes Status: Acute Code(s): R55 - SYNCOPE AND COLLAPSE SNOMED Code(s): 978956348 Plan: The clinical and x-ray findings are discussed with the patient. Treatment options are discussed including surgical intervention with percutaneous pinning versus femoral head replacement. The patient is at increased risk for delayed healing or nonunion secondary to her daily prednisone use and home oxygen, which makes her a poor candidate for percutaneous pinning of the hip. It is recommended that she undergo hemiarthroplasty of the left hip.the procedures been discussed in detail including the possible risks and outcomes of surgery. We are planning OR for Sunday morning if cleared medically.
[2017-04-20] MEDS: KETOROLAC 30 MG/ML 1 ML VIAL IVP PRN ×2 (18:35→23:57)
[2017-04-20] MEDS: ATORVASTATIN 20 MG TAB PO SCH (20:05)
[2017-04-20] MEDS: FAMOTIDINE 20 MG TAB PO SCH (20:05)
[2017-04-20] MEDS: IPRATROPIUM-ALBUTEROL 3 ML NEB INHALATION SCH (20:46)
[2017-04-20] MEDS: BUDESONIDE 0.5 MG/2 ML NEBU INHALATION SCH (20:46)
[2017-04-20] MEDS: MELATONIN 3 MG TABLET PO SCH (21:51)
[2017-04-21 00:38] LABS: Creatine Kinase 83 U/L (30-135)
[2017-04-21 00:51] LABS: Troponin I <0.012 ng/mL (0.000-0.034)
[2017-04-21] MEDS: SODIUM CHLORIDE 0.9% 1,000 ML IV SCH ×3 (03:22→23:31)
[2017-04-21] MEDS: KETOROLAC 30 MG/ML 1 ML VIAL IVP PRN (05:31)
[2017-04-21] MEDS: IPRATROPIUM-ALBUTEROL 3 ML NEB INHALATION SCH ×4 (06:02→19:42)
[2017-04-21] MEDS: BUDESONIDE 0.5 MG/2 ML NEBU INHALATION SCH ×2 (06:02→19:42)
[2017-04-21 06:07] LABS: HCT 38.6 % (34.0-46.0); HGB 12.3 gm/dL (11.4-16.0); MCH 29.3 pg (25.0-35.0); MCHC 31.8 g/dL (31.0-37.0); MCV 92.1 fL (80.0-100.0); Mean Platelet Volume 6.9; Platelet Count 229 k/uL (150-450); RBC 4.19 m/uL (3.80-5.40); WBC 8.4 k/uL (3.8-10.6)
[2017-04-21 06:36] LABS: Anion Gap 7 mmol/L; Blood Urea Nitrogen 17 mg/dL (7-17); Calcium 9.1 mg/dL (8.4-10.2); Carbon Dioxide 27 mmol/L (22-30); Chloride 104 mmol/L (98-107); Glucose 77 mg/dL (74-99); Potassium 3.8 mmol/L (3.5-5.1); Sodium 138 mmol/L (137-145)
[2017-04-21] MEDS: DILTIAZEM CD 240 MG CAP.ER.24H PO SCH (08:07)
[2017-04-21] MEDS: SERTRALINE 50 MG TAB PO SCH (08:07)
[2017-04-21] MEDS: FAMOTIDINE 20 MG TAB PO SCH (08:08)
[2017-04-21] MEDS: predniSONE 10 MG TAB PO SCH (08:08)
[2017-04-21] MEDS ORDERED: POLYETHYLENE GLYCOL 3350 17 GM POWD.PACK PO PRN (09:25)
--- NOTE | 2017-04-21 09:25 | P.PN ---
Subjective 72-year-old female was admitted secondary to syncopal episode and left hip fracture patient the pain is fairly well controlled but is nauseous quite a bit patient's Pepcid will be switched to Protonix and the patient will be started on Zofran on as-needed basis and morphine was added patient is quite anxious lasted because of his Xanax was added last night which is her home medication. And patient is not confused otherwise doing okay. Her abdominal pain resolved Constitutional: Denied any fatigue denied any fever. Cardio vascular: denied any chest pain, palpitations Gastrointestinal denied any nausea vomiting Pulmonary: Denied any shortness of breath cough Neurologic denied any new focal deficits Objective - Vital Signs Vital signs: Vital Signs Temp 98.7 F 04/21/17 08:00 Pulse 98 04/21/17 08:00 Resp 20 04/21/17 08:00 BP 119/61 04/21/17 08:00 Pulse Ox 96 04/21/17 08:00 Intake & Output 04/20/17 04/21/17 04/21/17 18:59 06:59 18:59 Intake Total 991 702 6275 Output Total 600 200 Balance -225 420 2908 Weight 73.482 kg 77.5 kg Intake: IV 500 1200 Sodium Chloride 0.9% 1, 500 1200 000 ml @ 100 mls/hr IV . Q10H ROMIE Rx#:[id number] Oral 236 Output: Urine 600 200 Other: Voiding Method Bedpan Bedpan Bedpan # Voids 1 1 1 # Bowel Movements 1 - Exam PHYSICAL EXAMINATION: GENERAL: The patient is alert and oriented x3, not in any acute distress. Well developed, well nourished. HEENT: Pupils are round and equally reacting to light. EOMI. No scleral icterus. No conjunctival pallor. Normocephalic, atraumatic. No pharyngeal erythema. No thyromegaly. CARDIOVASCULAR: S1 and S2 present. No murmurs, rubs, or gallops. PULMONARY: Chest is clear to auscultation, no wheezing or crackles. ABDOMEN: Soft, nontender, nondistended, normoactive bowel sounds. No palpable organomegaly. MUSCULOSKELETAL: Deferred to orthopedic surgery EXTREMITIES: No cyanosis, clubbing, or pedal edema. NEUROLOGICAL: Gross neurological examination did not reveal any focal deficits. SKIN: No rashes. - Labs CBC & Chem 7: 04/21/17 05:36 04/21/17 05:36 Labs: Abnormal Lab Results - Last 24 Hours (Table) 04/20/17 04/20/17 04/20/17 Range/Units 11:20 11:20 14:55 WBC 14.4 H (3.8-10.6) k/uL Neutrophils # 12.8 H (1.3-7.7) k/uL Carbon Dioxide 31 H (22-30) mmol/L BUN 18 H (7-17) mg/dL Glucose 112 H (74-99) mg/dL Total Protein 6.1 L (6.3-8.2) g/dL Ur Leukocyte Esterase Trace H (Negative) Urine WBC 8 H (0-5) /hpf Urine Bacteria Rare H (None) /hpf Assessment and Plan Plan: -Syncope: Secondary to hypotension may be medication related lisinopril will be held with concerns of tachycardia patient will be resumed on Cardizem with concerns of reflex tachycardia . Echocardiogram ordered -Left hip fracture patient will be on Pepcid and ketorolac for pain -COPD without any acute exacerbation patient is on systemic steroids at this time along with inhaled treatments which will be continued -Hyperlipidemia Gastroesophageal reflux disease -Nausea secondary to pain Abdominal pain resolved at this time. -Anxiety disorder for which we will use Xanax on as-needed basis which she does take at home. For above-mentioned chronic medical problems patient will be resumed on appropriate home medications
[2017-04-21] MEDS: ONDANSETRON 4 MG/2 ML VIAL IVP PRN ×2 (09:26→17:48)
--- NOTE | 2017-04-21 10:35 | P.PN ---
Subjective Progress Note Date: 04/21/17 Principal diagnosis: Femoral neck fracture left hip. This is a 72-year-old female who we're following regarding her left hip fracture. We are planning hemiarthroplasty of the left hip in OR tomorrow if cleared medically. Objective - Vital Signs Vital signs: Vital Signs Temp 98.7 F 04/21/17 08:00 Pulse 98 04/21/17 08:00 Resp 20 04/21/17 08:00 BP 119/61 04/21/17 08:00 Pulse Ox 96 04/21/17 08:00 Intake & Output 04/20/17 04/21/17 04/21/17 18:59 06:59 18:59 Intake Total 575 797 6916 Output Total 600 200 Balance -237 141 3548 Weight 73.482 kg 77.5 kg Intake: IV 500 1200 Sodium Chloride 0.9% 1, 500 1200 000 ml @ 100 mls/hr IV . Q10H ROMIE Rx#:[id number] Oral 236 Output: Urine 600 200 Other: Voiding Method Bedpan Bedpan Bedpan # Voids 1 1 1 # Bowel Movements 1 - Exam This is a 72-year-old female in no acute distress. She is alert and oriented 3. Exam of left hip reveals no obvious deformity and no shortening. She is able lift her leg slightly off the bed. There is pain with internal and external rotation of the hip. She has full foot and ankle motion without difficulty or pain. Neurovascular status to the lower extremity is intact. - Labs CBC & Chem 7: 04/21/17 05:36 04/21/17 05:36 Labs: Abnormal Lab Results - Last 24 Hours (Table) 04/20/17 04/20/17 04/20/17 Range/Units 11:20 11:20 14:55 WBC 14.4 H (3.8-10.6) k/uL Neutrophils # 12.8 H (1.3-7.7) k/uL Carbon Dioxide 31 H (22-30) mmol/L BUN 18 H (7-17) mg/dL Glucose 112 H (74-99) mg/dL Total Protein 6.1 L (6.3-8.2) g/dL Ur Leukocyte Esterase Trace H (Negative) Urine WBC 8 H (0-5) /hpf Urine Bacteria Rare H (None) /hpf Assessment and Plan (1) Nondisplaced fracture of neck of left femur Current Visit: Yes Status: Acute Code(s): S72.002A - FRACTURE OF UNSP PART OF NECK OF LEFT FEMUR, INIT SNOMED Code(s): 1772874 (2) Syncope Current Visit: Yes Status: Acute Code(s): R55 - SYNCOPE AND COLLAPSE SNOMED Code(s): 128469968 Plan: The clinical and x-ray findings are discussed with the patient. Treatment options are discussed including surgical intervention with percutaneous pinning versus femoral head replacement. The patient is at increased risk for delayed healing or nonunion secondary to her daily prednisone use and home oxygen, which makes her a poor candidate for percutaneous pinning of the hip. It is recommended that she undergo hemiarthroplasty of the left hip.the procedures been discussed in detail including the possible risks and outcomes of surgery. We are planning OR for Sunday morning if cleared medically.
[2017-04-21] MEDS: PANTOPRAZOLE 40 MG TABLET PO SCH (11:08)
[2017-04-21] MEDS: MORPHINE SULFATE 4 MG/ML SYRINGE IVP PRN ×3 (11:08→19:57)
--- NOTE | 2017-04-21 12:41 | P.CRDCN ---
History of Present Illness Consult date: 04/21/17 Requesting physician: Anay Schuster Reason for Consult (text): syncope Chief complaint: syncope History of present illness: This is a pleasant 72-year-old female who follows with Dr. Allen in the office. She has a history of asthma, COPD, chronic respiratory failure with hypoxia, oxygen dependent, GERD, hyperlipidemia, hypertension, and questionable uterine cancer and is scheduled to undergo endometrial biopsy and D &C at [facility]. She underwent cardiac catheterization in February 2016 that showed normal coronaries with a short left main and dominant right coronary artery. She presented to the emergency department after an episode of syncope. She was up and about getting ready to get in the shower when she developed some nausea and overall not feeling well. She walked out of the bathroom and the next thing she remembers is waking up with her grandchild by her side. CT of the brain showed no acute abnormalities. Chest x-ray showed no acute process with prominent lung volume which may be indicative of underlying COPD. She was complaining of some left lower quadrant pain upon arrival and a CT of the abdomen was performed that showed abnormal fluid within the endometrium with multiple areas of probable fibroid uterus, recommend gynecological consultation, consider endometrial biopsy. Anterior abdominal wall hernia contains fat and the left lower quadrant, in the subxiphoid region there is a focus that contains some short segment of transverse colon, correlate to exclude incarceration. Also showed some cholelithiasis. She is also complaining of some left hip pain and x-ray confirmed nondisplaced left femoral neck fracture. She is tentatively scheduled to undergo a hemiarthroplasty tomorrow morning, pending medical clearance. EKG on admission shows sinus rhythm with nonspecific ST-T wave abnormalities. She's had no evidence of bradycardia or tachyarrhythmias. Laboratory values were reviewed showed elevated white count upon admission with a repeat normal at 8.4. Electrolytes and renal function is within normal limits. Troponins negative 3. Upon examination, patient is resting comfortably in bed. She denies further complaints of abdominal discomfort. She says overall at home up until yesterday she had been feeling fairly well. She's had has a history of dizziness in the past however this has improved since some medication adjustments by Dr. Allen. Vital signs have been relatively stable with some systolic blood pressures in the 90s after pain medication administration. Past Medical History Past Medical History: Asthma, Chest Pain / Angina, COPD, GERD/Reflux, Hyperlipidemia, Hypertension, Pneumonia Additional Past Medical History / Comment(s): oxygen [place] @2L continuous, gallstones, pernicious anemia, History of Any Multi-Drug Resistant Organisms: None Reported Past Surgical History: Hernia Repair, Orthopedic Surgery, Tonsillectomy Additional Past Surgical History / Comment(s): left elbow surgery, abscess in stomach area, abdominial scar tissue, tamie oophorectomy, left knee surgery, Past Anesthesia/Blood Transfusion Reactions: No Reported Reaction Past Psychological History: Anxiety, Depression Smoking Status: Former smoker Past Alcohol Use History: None Reported Additional Past Alcohol Use History / Comment(s): quit smoking 2008, smoked since age 18, 2 PPD Past Drug Use History: None Reported - Past Family History Mother Family Medical History: No Reported History Father Family Medical History: CVA/TIA, Myocardial Infarction ([place]) Medications and Allergies Home Medications Medication Instructions Recorded Confirmed Type Lisinopril 40 mg PO DAILY 02/20/15 04/20/17 History Sertraline HCl [Zoloft] 50 mg PO DAILY 02/20/15 04/20/17 History Simvastatin [Zocor] 40 mg PO HS 02/20/15 04/20/17 History ALPRAZolam [Xanax] 0.5 mg PO TID PRN #20 tab 03/02/15 04/20/17 Rx Albuterol Sulfate [Proair Hfa] 2 puff INHALATION RT-Q4H PRN 03/01/16 04/20/17 History Diltiazem Cd [Cardizem CD] 240 mg PO DAILY 03/01/16 04/20/17 History Flaxseed Oil [Kelso-3 Flaxseed Oil] 1,000 mg PO DAILY 03/01/16 04/20/17 History Furosemide [Lasix] 20 mg PO DAILY PRN 03/01/16 04/20/17 History Ipratropium/Albuterol Sulfate 1 puff INHALATION RT-QID 03/01/16 04/20/17 History [Combivent Respimat Inhaler] Melatonin 3 mg PO HS 03/01/16 04/20/17 History Montelukast Sodium [Singulair] 10 mg PO HS 03/01/16 04/20/17 History [place]-3 Fatty Acids/Fish Oil [Fish 1 each PO DAILY 03/01/16 04/20/17 History Oil 1,000 mg Softgel] Ranitidine HCl [Zantac] 150 mg PO BID 03/01/16 04/20/17 History predniSONE 10 mg PO DAILY 03/01/16 04/20/17 History Budesonide [Pulmicort] 0.5 mg INHALATION RT-BID 04/20/17 04/20/17 History Prasterone (Dhea) [Dhea] 50 mg PO DAILY 04/20/17 04/20/17 History Allergies Allergy/AdvReac Type Severity Reaction Status Date / Time No Known Allergies Allergy Verified 04/20/17 11:42 Physical Exam Vitals: Vital Signs Temp Pulse Pulse Resp BP BP Pulse Ox 04/21/17 08:00 98.7 F 98 20 119/61 96 04/21/17 06:22 109 H 04/21/17 06:07 88 L 04/21/17 06:02 105 H 04/21/17 04:00 84 17 106/64 94 L 04/21/17 00:00 99.0 F 91 16 100/55 95 04/20/17 21:02 80 95 04/20/17 20:50 82 04/20/17 20:00 98.4 F 91 17 93/50 96 04/20/17 16:00 97.6 F 70 18 99/60 97 04/20/17 15:12 96.9 F L 72 22 132/72 96 04/20/17 14:59 97.6 F 70 18 99/60 97 04/20/17 14:12 82 18 133/61 98 04/20/17 11:24 97.5 F L 75 18 149/73 96 Intake and Output 04/20/17 04/21/17 04/21/17 22:59 06:59 14:59 Intake Total 060 999 9261 Output Total 600 200 Balance -593 434 1583 Intake: IV 500 1200 Sodium Chloride 0.9% 1, 500 1200 000 ml @ 100 mls/hr IV . [facility] Rx#:[id number] Oral 236 Output: Urine 600 200 Other: Voiding Method Bedpan Bedpan Bedpan # Voids 1 1 1 # Bowel Movements 1 Weight 77.5 kg PHYSICAL EXAMINATION: HEENT: Head is atraumatic, normocephalic. Pupils equal, round. Neck is supple. There is no elevated jugular venous pressure. HEART EXAMINATION: Heart sounds regular, S1 and S2 normal. No murmur or gallop heard. CHEST EXAMINATION: Lungs reveal diminished air entry bilaterally. No chest wall tenderness is noted on palpation or with deep breathing. ABDOMEN: Soft, nontender. Bowel sounds are heard. No organomegaly noted. EXTREMITIES: 2+ peripheral pulses with no evidence of peripheral edema and no calf tenderness noted. NEUROLOGIC patient is awake, alert and oriented x3. . Results 04/21/17 05:36 04/21/17 05:36 Cardiac Enzymes 04/20/17 04/20/17 04/20/17 Range/Units 11:20 11:20 16:38 AST 21 (14-36) U/L CK-MB (CK-2) 1.0 1.1 (0.0-2.4) ng/mL Troponin I <0.012 <0.012 (0.000-0.034) ng/mL 04/20/17 Range/Units 23:54 AST (14-36) U/L CK-MB (CK-2) 1.0 (0.0-2.4) ng/mL Troponin I <0.012 (0.000-0.034) ng/mL Coagulation 04/20/17 Range/Units 11:20 PT 9.7 (9.0-12.0) sec APTT 22.1 (22.0-30.0) sec CBC 04/20/17 04/21/17 Range/Units 11:20 05:36 WBC 14.4 H 8.4 (3.8-10.6) k/uL RBC 4.38 4.19 (3.80-5.40) m/uL Hgb 13.3 12.3 (11.4-16.0) gm/dL Hct 41.7 38.6 (34.0-46.0) % Plt Count 289 229 (150-450) k/uL Comprehensive Metabolic Panel 04/20/17 04/21/17 Range/Units 11:20 05:36 Sodium 142 138 (137-145) mmol/L Potassium 4.3 3.8 (3.5-5.1) mmol/L Chloride 103 104 (98-107) mmol/L Carbon Dioxide 31 H 27 (22-30) mmol/L BUN 18 H 17 (7-17) mg/dL Creatinine 0.64 0.70 (0.52-1.04) mg/dL Glucose 112 H 77 (74-99) mg/dL Calcium 9.3 9.1 (8.4-10.2) mg/dL AST 21 (14-36) U/L ALT 36 (9-52) U/L Alkaline Phosphatase 48 (38-126) U/L Total Protein 6.1 L (6.3-8.2) g/dL Albumin 3.7 (3.5-5.0) g/dL Current Medications Generic Name Dose Route Start Last Admin Trade Name Freq PRN Reason Stop Dose Admin Albuterol Sulfate 2.5 mg 04/20/17 17:44 Ventolin Nebulized INHALATION RT-Q4H PRN Shortness Of Breath Albuterol/Ipratropium 3 ml 04/20/17 20:00 04/21/17 06:02 Duoneb 0.5 Mg-3 Mg/3 Ml Soln INHALATION 3 ml RT-QID ROMIE Administration Alprazolam 0.5 mg 04/21/17 05:53 Xanax PO TID PRN Anxiety Atorvastatin Calcium 20 mg 04/20/17 21:00 04/20/17 20:05 Lipitor PO 20 mg HS ROMIE Administration Budesonide 0.5 mg 04/20/17 20:00 04/21/17 06:02 Pulmicort INHALATION 0.5 mg RT-BID ROMIE Administration Diltiazem HCl 240 mg 04/21/17 09:00 04/21/17 08:07 Cardizem Cd PO 240 mg DAILY ROMIE Administration Famotidine 20 mg 04/20/17 21:00 04/21/17 08:08 Pepcid PO 20 mg BID ROMIE Administration Sodium Chloride 1,000 mls @ 100 mls/hr 04/20/17 18:00 04/21/17 03:22 Saline 0.9% IV Not Given .Q10H ROMIE Ketorolac Tromethamine 15 mg 04/20/17 17:46 04/21/17 05:31 Toradol IVP 04/25/17 17:47 15 mg Q6HR PRN Administration Pain Scale 1 to 5 Melatonin 3 mg 04/20/17 21:00 04/20/17 21:51 Melatonin PO 3 mg HS ROMIE Administration Miscellaneous Information 1 each 04/20/17 11:47 04/20/17 11:54 Rx Info: Iv Contrast Was Given MISCELLANE 04/22/17 11:47 1 each DAILY PRN Administration Per Protocol Morphine Sulfate 3 mg 04/21/17 05:54 Morphine Sulfate (Inj) IVP Q4HR PRN Pain Scale 6 to 10 Naloxone HCl 0.2 mg 04/20/17 14:20 Narcan IV Q2M PRN Opioid Reversal Prednisone 10 mg 04/21/17 09:00 04/21/17 08:08 PO 10 mg DAILY ROMIE Administration Sertraline HCl 50 mg 04/21/17 09:00 04/21/17 08:07 Zoloft PO 50 mg DAILY ROMIE Administration Intake and Output 04/20/17 04/21/17 04/21/17 22:59 06:59 14:59 Intake Total 581 675 4894 Output Total 600 200 Balance -447 127 9771 Intake: IV 500 1200 Sodium Chloride 0.9% 1, 500 1200 000 ml @ 100 mls/hr IV . Q10H [facility] Rx#:[id number] Oral 236 Output: Urine 600 200 Other: Voiding Method Bedpan Bedpan Bedpan # Voids 1 1 1 # Bowel Movements 1 Weight 77.5 kg 04/21/17 05:36 04/21/17 05:36 EKG Interpretations (text) Sinus rhythm with nonspecific ST T wave abnormalities Assessment and Plan Assessment: #1 syncope, likely vasovagal #2 hypertension #3 hyperlipidemia #4 left femoral neck fracture #5 history of cardiac catheterization showing normal coronary arteries in 2017 Plan: From cardiology's perspective, we'll obtain a 2-D echo with Doppler. Patient may proceed with hemiarthroplasty tomorrow, she is average risk. She was advised to stay well hydrated. Will likely need an event monitor as an outpatient. Further recommendations to follow. WEB ARCHITECT note has been reviewed, I agree with a documented findings and plan of care. Patient was seen and examined.
[2017-04-21] MEDS: MELATONIN 3 MG TABLET PO SCH (19:52)
[2017-04-21] MEDS: MONTELUKAST 10 MG TAB PO SCH (19:56)
[2017-04-21] MEDS: ATORVASTATIN 20 MG TAB PO SCH (19:57)
[2017-04-22] MEDS: MORPHINE SULFATE 4 MG/ML SYRINGE IVP PRN ×2 (00:28→04:32)
[2017-04-22] MEDS: IPRATROPIUM-ALBUTEROL 3 ML NEB INHALATION SCH ×4 (04:34→19:54)
[2017-04-22] MEDS: BUDESONIDE 0.5 MG/2 ML NEBU INHALATION SCH ×2 (04:34→19:54)
[2017-04-22] MEDS: PANTOPRAZOLE 40 MG TABLET PO SCH (04:41)
[2017-04-22] MEDS: DILTIAZEM CD 240 MG CAP.ER.24H PO SCH (07:18)
[2017-04-22] MEDS: SERTRALINE 50 MG TAB PO SCH (07:18)
[2017-04-22] MEDS: predniSONE 10 MG TAB PO SCH (07:18)
[2017-04-22] MEDS: ONDANSETRON 4 MG/2 ML VIAL IVP PRN (07:21)
[2017-04-22] MEDS ORDERED: PHENYLEPHRINE-0.9% NACL SYG 1 MG/10 ML SYRINGE ONE (08:16)
[2017-04-22] MEDS ORDERED: KETAMINE 10 MG/ML 20 ML VIAL ONE (08:16)
[2017-04-22] MEDS ORDERED: ceFAZolin 1,000 MG in SODIUM CHLORIDE 0.9% 1,000 ML IRRIGATION ONE ×2 (08:16→09:24)
[2017-04-22] MEDS ORDERED: IV FLUID CONTINUATION 1,000 ML IV ONE (08:16)
[2017-04-22] MEDS ORDERED: MIDAZOLAM 2 MG/2 ML VIAL ONE (08:16)
[2017-04-22] MEDS ORDERED: DEXAMETHASONE SOD PHOS (MDV) 100 MG/10 ML VIAL ONE (08:16)
[2017-04-22] MEDS ORDERED: PROPOFOL 10 MG/ML 20 ML VIAL IV ONE (08:16)
[2017-04-22] MEDS ORDERED: SODIUM CHLORIDE 0.9% 50 ML with ceFAZolin 2,000 MG IV ONE ×2 (08:16)
[2017-04-22] MEDS ORDERED: LACTATED RINGERS 1,000 ML IV ONE (09:00)
[2017-04-22] MEDS ORDERED: Acetaminophen-Codeine 300-30mg TAB PO PRN (10:04)
[2017-04-22] MEDS ORDERED: NALOXONE 0.4 MG/ML 1 ML VIAL IV PRN (10:04)
--- NOTE | 2017-04-22 10:04 | P.OP ---
Date of Procedure: 04/22/17 Procedure(s) Performed: PREOPERATIVE DIAGNOSIS: Left hip femoral neck fracture, severe osteoporosis POSTOPERATIVE DIAGNOSIS: Left hip femoral neck fracture, severe osteoporosis OPERATION: Left hip cemented unipolar hemiarthroplasty. ANESTHESIA: Spinal ESTIMATED BLOOD LOSS: 150 ml. ARCHITECTURAL MODEL MAKER: None COMPLICATIONS: None apparent. COMPONENTS IMPLANTED: Ja LDFx cemented femoral stem; unipolar femoral head; neck extension augments as needed. INDICATIONS: Mrs. Fried is a 72-year-old female who is on home oxygen and has severe osteoporosis with a history of falling and sustaining a femoral neck fracture. I have recommended surgical treatment with a cemented unipolar hemiarthroplasty. I have discussed this procedure in detail and explained the potential risks and complications as being inclusive of, but not limited to: Bleeding, infection, scarring, discomfort, blood vessel and/or nerve damage, limb length inequality, gait disturbance, blood clot, pulmonary embolism, , and other risks. The consent form has been signed. PROCEDURE: After appropriate consent was obtained, the patient was taken to the operating room and placed in supine position. Spinal anesthetic was administered and after confirmation of adequate anesthesia, the patient was placed into the lateral decubitus position with the affected side up. Care was taken to make sure that all pressure points were adequately padded and a [place] hip positioner was utilized for positioning. The hip was prepped and draped in the usual aseptic fashion using a combination of Chloraprep and alcohol. [place] drape was used for the case and the patient received intravenous antibiotics prior to the incision. The incision was created directly over the greater trochanter and carried slightly posteriorly for a posterior approach to the hip. The incision was then deepened down to subcutaneous tissue and fascia joelle. Fascia joelle was split in line with the incision and split proximally along the fibers of the gluteus keara. The underlying fibers of the muscle were teased apart using finger dissection and bleeding vessels were picked up and coagulated. Retractor was then placed posteriorly consisting of a blunt [place]. The short external rotators and capsule were exposed and good visualization of the attachment of the external rotators to the femur was established. The short external rotators and capsule were released using electrocautery from their femoral attachments. A hockey stick shaped incision was created in the capsule. Joint fluid and hemarthrosis was evacuated and the patient's hip was internally rotated to expose the fracture site. The femoral neck cut was created approximately 1 cm superior to the lesser trochanter using a reciprocating saw. Severe osteoporosis was noted with thinned cortices and severely weak bone structure. The femoral head and neck fragment was removed and visualization and palpation of the acetabular vault showed intact hyaline cartilage with no bone exposure or significant degeneration. The fragments of bone were sent to pathology for analysis. Attention was then directed back to the proximal femur. Retractors were placed around the proximal femur and box osteotome was used followed by canal finder and trochanteric reamer. Cylindrical reaming was performed. Progressive broaching was then performed starting with a #10 broach and progressing final size, in a position of 10-15 degrees anteversion. [place] anteversion was within 5 degrees of stem position. The final size broach had excellent fit and fill of the patient's metaphysis and diaphysis. Calcar planing was performed. Trial reduction was then performed starting with appropriately sized femoral head and various neck extensions to evaluate stability, limb length equality, and soft tissue tension. Once these parameters were satisfactory, the corresponding final components were then called for. Trial components were removed. The femoral canal was sized for the centralizer and cement plug. Once the cement plug had been inserted distal to the planned length of the femoral component, the canal was pulse lavaged and brushed to remove any unstable bone. It was then dried with a lap sponge. Cement was mixed under vacuum conditions to decrease porosity and inserted into a cement gun. Distal centralizer was placed onto the femoral component with a bit of cement. The cement was allowed to reach a slightly doughy consistency and then the canal was filled retrograde with the cement gun. Thumb pressurization was performed three times. The femoral component was then inserted with the previously determined degree of anteversion. Excess cement was removed before it hardened completely. The femoral head was then impacted onto the [place] taper. Blood and debris were removed from the acetabular socket and the hip was then reduced and checked for stability, limb length and soft tissue tension. These parameters were found to be satisfactory; the wound was then thoroughly irrigated with normal saline. Final hemostasis was obtained using electrocautery. Closure of the capsule was performed meticulously using #3 Vicryl suture. Four [id number] sutures were placed in the posterior capsule along with repair of the external rotators. The fascia joelle was then repaired using combination of #3 Vicryl suture in interrupted fashion and [place]ill and running fashion. 2-0 Vicryl suture was used for the subcutaneous tissues and 3-0 Quill for the skin. Dermabond or Steri-Strips were then applied. The patient tolerated the procedure well. There were no complications and the wound bed was dry and there was no need for drain placement. Sterile dressing was then applied and the patient was carefully removed from the operating room table, placed on the stretcher and was taken to the recovery room in stable condition. Sponge and needle counts were correct.
--- NOTE | 2017-04-22 10:56 | XR ---
EXAMINATION TYPE: XR Hip Limited LT , 2 VIEWS DATE OF EXAM ORDERED: 04/22/2017 HISTORY: post op alignment. COMPARISON: None. FINDINGS: The left knee hemiarthroplasties in place. Prosthetic elements appear in good position. IMPRESSION: STATUS POST LEFT KNEE HEMIARTHROPLASTY.
[2017-04-22] MEDS: SODIUM CHLORIDE 0.9% 1,000 ML IV SCH ×2 (10:58→22:41)
[2017-04-22] MEDS: Acetaminophen-Codeine 300-30mg TAB PO PRN ×4 (12:59→23:26)
[2017-04-22] MEDS: ALPRAZolam 0.5 MG TAB PO PRN ×2 (13:21→23:26)
[2017-04-22 14:03] LABS: Basophils % (A) 0 %; Eosinophils % (A) 0 %; HCT 38.7 % (34.0-46.0); Lymphocytes # (A) 0.2 k/uL (1.0-4.8); Lymphocytes % (A) 2 %; MCH 29.9 pg (25.0-35.0); MCHC 30.9 g/dL (31.0-37.0); MCV 96.8 fL (80.0-100.0); Mean Platelet Volume 6.8; Monocytes # (A) 0.1 k/uL (0-1.0); Monocytes % (A) 1 %; Neutrophils # (A) 11.5 k/uL (1.3-7.7); Neutrophils % (A) 96 %; Platelet Count 218 k/uL (150-450); RDW 12.7 % (11.5-15.5); WBC 11.9 k/uL (3.8-10.6)
[2017-04-22 14:07] LABS: Prothrombin Time 10.2 sec (9.0-12.0)
--- NOTE | 2017-04-22 15:17 | PN ---
PROGRESS NOTE Mrs. Fried underwent surgery for her hip fracture. She is doing well. She had an episode of syncope that led to the hip fracture. She will need a event monitor as an outpatient. She has no obstructive CAD. Vital signs stable. S1, S2 heard normally. Lungs are clear. Abdomen is soft, nontender. Rest of physical examination is unchanged. MMODL / IJN: [id number] /
--- NOTE | 2017-04-22 15:36 | PN ---
PROGRESS NOTE DATE OF SERVICE: 04/22/2017 The patient is seen at the bedside in her room. She is status post left hip cemented unipolar hemiarthroplasty for left hip femoral neck fracture and severe osteoporosis. The patient claims that she feels that her pain is coming back, but does not seem to be in any acute distress. VITAL SIGNS: Temperature 97.3, pulse 89, respiration 18, blood pressure 128/60, O2 saturation 95% on 3 L. HEENT: Atraumatic, normocephalic. Pupils equal and reactive to light. Extraocular movements intact. Buccal mucosa is fair. Neck is supple. No goiter, lymphadenopathy. JVD is negative. No carotid bruit heard. Lungs are clear to auscultate. No rales, rhonchi, or wheezes. Heart is regular rate and rhythm without any murmurs, gallop rhythm. Abdomen is soft, nontender, nondistended. Bowel sounds positive. EXTREMITIES: The left hip dressing is intact with some faint ecchymosis and bruising to the left upper thigh area. Pulses are palpable. LAB: CBC: White blood count 11.9, hemoglobin 12, hematocrit 38.7, and platelet count of 218. Chemical profile: Sodium of 138, potassium 3.8, chloride 104, bicarb 27, BUN 17, creatinine 0.70. ASSESSMENT: 1. Syncope, possibly secondary to hypotension secondary to lisinopril. The patient's lisinopril is on hold. Continues to have Cardizem. The patient has been seen by Cardiology and again a 2D echo is recommended and no further workup till echo is done. 2. Syncope and fall with left hip fracture. Patient is status post left hip hemiarthroplasty. 3. Chronic obstructive pulmonary disease not in exacerbation. Patient remains on systemic and inhaled steroids. 4. Hyperlipidemia. 5. Gastroesophageal reflux disease. 6. Anxiety. The patient will resume all home medications. We will encourage incentive spirometry q.1-2 hours while awake. We will also recommend early ambulation. PT and OT consult will be upon Surgery discretion. We will continue on current medications and wait for echocardiogram for further recommendations after the echo is available. MMODL / IJN: [id number] /
[2017-04-22] MEDS: ceFAZolin IN SWFI 2 GM/20 ML SYRINGE IVP SCH ×2 (16:42→23:26)
[2017-04-22] MEDS ORDERED: WARFARIN 7.5 MG TAB PO ONE (18:00)
[2017-04-22] MEDS: MELATONIN 3 MG TABLET PO SCH (20:42)
[2017-04-22] MEDS: MONTELUKAST 10 MG TAB PO SCH (20:51)
[2017-04-22] MEDS: ATORVASTATIN 20 MG TAB PO SCH (20:51)
[2017-04-23] MEDS: SODIUM CHLORIDE 0.9% 1,000 ML IV SCH ×2 (04:01→17:38)
[2017-04-23] MEDS: Acetaminophen-Codeine 300-30mg TAB PO PRN ×5 (04:02→19:16)
--- NOTE | 2017-04-23 05:01 | ECHOF ---
Referral Reason:syncope MEASUREMENTS -------- HEIGHT: 160.0 cm WEIGHT: 77.1 kg BP: RVIDd: 3.8 cm (< 3.3) IVSd: 1.3 cm (0.6 - 1.1) LVIDd: 3.9 cm (3.9 - 5.3) LVPWd: 1.1 cm (0.6 - 1.1) IVSs: 1.4 cm LVIDs: 3.7 cm LVPWs: 0.9 cm LA Diam: 4.2 cm (2.7 - 3.8) Ao Diam: 3.4 cm (2.0 - 3.7) MV EXCURSION: 24.208 mm (> 18.000) MV EF SLOPE: 175 mm/s (70 - 150) EPSS: 0.6 cm MV E Sandeep: 0.65 m/s MV DecT: 257 ms MV A Sandeep: 0.89 m/s MV E/A Ratio: 0.74 RAP: 5.00 mmHg RVSP: 42.65 mmHg FINDINGS -------- Sinus rhythm. Pre-op Hip FX. The left ventricular size is normal. There is mild concentric left ventricular hypertrophy. Overa ll left ventricular systolic function is normal with, an EF between 55 - 60 %. The right ventricle is mild to moderately enlarged. The left atrium is mildly dilated. The right atrial size is normal. There is mild aortic valve sclerosis. There is no evidence of aortic regurgitation. Mild mitral annular calcification present. Mild mitral regurgitation is present. Mild tricuspid regurgitation present. There is mild pulmonary hypertension. The right ventricular systolic pressure, as measured by Doppler, is 42.65mmHg. There is no pulmonic regurgitation present. The aortic root size is normal. There is no pericardial effusion. CONCLUSIONS -------- 1. Pre-op Hip FX. 2. The left ventricular size is normal. 3. There is mild concentric left ventricular hypertrophy. 4. Overall left ventricular systolic function is normal with, an EF between 55 - 60 %. 5. The right ventricle is mild to moderately enlarged. 6. The left atrium is mildly dilated. 7. There is mild aortic valve sclerosis. 8. Mild mitral annular calcification present. 9. Mild mitral regurgitation is present. 10. Mild tricuspid regurgitation present. 11. There is mild pulmonary hypertension. 12. The right ventricular systolic pressure, as measured by Doppler, is 42.65mmHg. 13. There is no pulmonic regurgitation present. 14. The aortic root size is normal. 15. There is no pericardial effusion. FERMENTING CELLARS RECEIVER: Candi Campos RDCS
[2017-04-23 06:34] LABS: INR 1.1 (<1.2); Prothrombin Time 10.4 sec (9.0-12.0)
[2017-04-23 06:37] LABS: Anion Gap 4 mmol/L; Blood Urea Nitrogen 14 mg/dL (7-17); Calcium 9.2 mg/dL (8.4-10.2); Carbon Dioxide 31 mmol/L (22-30); Chloride 103 mmol/L (98-107); Glucose 162 mg/dL (74-99); Potassium 4.5 mmol/L (3.5-5.1); Sodium 138 mmol/L (137-145)
[2017-04-23 06:40] LABS: HCT 32.9 % (34.0-46.0); HGB 10.4 gm/dL (11.4-16.0); MCH 29.1 pg (25.0-35.0); MCHC 31.6 g/dL (31.0-37.0); MCV 92.1 fL (80.0-100.0); Mean Platelet Volume 7.2; Platelet Count 230 k/uL (150-450); RBC 3.57 m/uL (3.80-5.40); RDW 12.6 % (11.5-15.5); WBC 10.9 k/uL (3.8-10.6)
[2017-04-23] MEDS: PANTOPRAZOLE 40 MG TABLET PO SCH (06:45)
[2017-04-23] MEDS: IPRATROPIUM-ALBUTEROL 3 ML NEB INHALATION SCH ×4 (07:15→19:22)
[2017-04-23] MEDS: BUDESONIDE 0.5 MG/2 ML NEBU INHALATION SCH ×2 (07:15→19:22)
[2017-04-23] MEDS: predniSONE 10 MG TAB PO SCH (07:39)
[2017-04-23] MEDS: ALPRAZolam 0.5 MG TAB PO PRN ×3 (07:39→23:01)
[2017-04-23] MEDS: SERTRALINE 50 MG TAB PO SCH (07:39)
[2017-04-23] MEDS: DILTIAZEM CD 240 MG CAP.ER.24H PO SCH (07:39)
--- NOTE | 2017-04-23 08:25 | P.PN ---
Subjective Progress Note Date: 04/23/17 Principal diagnosis: Femoral neck fracture left hip. Status post hemiarthroplasty left hip. This is a 72-year-old female who we're following regarding her left hip fracture. She is postoperative day #1 status post hemiarthroplasty of the left hip. She has no new complaints or concerns today. Vital signs are stable. Objective - Vital Signs Vital signs: Vital Signs Temp 97.9 F 04/23/17 07:38 Pulse 77 04/23/17 07:43 Resp 17 04/23/17 07:43 BP 115/65 04/23/17 07:38 Pulse Ox 94 L 04/23/17 07:38 Intake & Output 04/22/17 04/23/17 04/23/17 18:59 06:59 18:59 Intake Total 3756 300 222 Output Total 1350 700 Balance 2406 -400 222 Weight 81 kg Intake: IV 2352 300 Lactated Ringers 1,000 ml 300 As IV .[facility] Rx#: [id number] Sodium Chloride 0.9% 1, 1700 000 ml @ 100 mls/hr IV . Q10H [facility] Rx#:[id number] Intake, IV Titration 600 Amount Lactated Ringers 1,000 ml 600 As IV [facility] Rx#: [id number] Oral 804 222 Output: Urine 1200 700 Uretheral (Alvares) 900 Estimated Blood Loss 150 Other: Voiding Method Bedpan Indwelling Catheter Indwelling Catheter # Voids 2 - Exam This is a 72-year-old female in no acute distress. She is alert and oriented 3. Exam of left hip reveals that her Dermabond glue is intact. There is no active drainage. There is no erythema or ecchymosis. She has full foot and ankle motion without difficulty or pain. Neurovascular status to the lower extremities is intact. - Labs CBC & Chem 7: 04/23/17 05:41 04/23/17 05:41 Labs: Abnormal Lab Results - Last 24 Hours (Table) 04/22/17 04/23/17 04/23/17 Range/Units 13:54 05:41 05:41 WBC 11.9 H 10.9 H (3.8-10.6) k/uL RBC 3.57 L (3.80-5.40) m/uL Hgb 10.4 L (11.4-16.0) gm/dL Hct 32.9 L (34.0-46.0) % MCHC 30.9 L (31.0-37.0) g/dL Neutrophils # 11.5 H (1.3-7.7) k/uL Lymphocytes # 0.2 L (1.0-4.8) k/uL Carbon Dioxide 31 H (22-30) mmol/L Glucose 162 H (74-99) mg/dL Assessment and Plan (1) Nondisplaced fracture of neck of left femur Current Visit: Yes Status: Acute Code(s): S72.002A - FRACTURE OF UNSP PART OF NECK OF LEFT FEMUR, INIT SNOMED Code(s): 6997496 (2) Syncope Current Visit: Yes Status: Acute Code(s): R55 - SYNCOPE AND COLLAPSE SNOMED Code(s): 896682670 (3) History of hemiarthroplasty of left hip Current Visit: Yes Status: Acute Code(s): Z96.642 - PRESENCE OF LEFT ARTIFICIAL HIP JOINT SNOMED Code(s): 220505308 Plan: The clinical findings are discussed with the patient. We will begin physical therapy today. Plan discharged to home versus rehab this week.
[2017-04-23] MEDS: MULTIVITAMINS, THERA 1 EACH TAB PO SCH (11:07)
--- NOTE | 2017-04-23 15:42 | P.PN ---
Subjective Progress Note Date: 04/23/17 Principal diagnosis: Syncope This is a pleasant 72-year-old female who follows with Dr. Allen in the office. She has a history of asthma, COPD, chronic respiratory failure with hypoxia, oxygen dependent, GERD, hyperlipidemia, hypertension, and questionable uterine cancer and is scheduled to undergo endometrial biopsy and D &C at [facility]. She underwent cardiac catheterization in February 2016 that showed normal coronaries with a short left main and dominant right coronary artery. She presented to the emergency department after an episode of syncope. She was up and about getting ready to get in the shower when she developed some nausea and overall not feeling well. She walked out of the bathroom and the next thing she remembers is waking up with her grandchild by her side. CT of the brain showed no acute abnormalities. Chest x-ray showed no acute process with prominent lung volume which may be indicative of underlying COPD. She was complaining of some left lower quadrant pain upon arrival and a CT of the abdomen was performed that showed abnormal fluid within the endometrium with multiple areas of probable fibroid uterus, recommend gynecological consultation, consider endometrial biopsy. Anterior abdominal wall hernia contains fat and the left lower quadrant, in the subxiphoid region there is a focus that contains some short segment of transverse colon, correlate to exclude incarceration. Also showed some cholelithiasis. She is also complaining of some left hip pain and x-ray confirmed nondisplaced left femoral neck fracture. She is tentatively scheduled to undergo a hemiarthroplasty tomorrow morning, pending medical clearance. EKG on admission shows sinus rhythm with nonspecific ST-T wave abnormalities. She's had no evidence of bradycardia or tachyarrhythmias. Laboratory values were reviewed showed elevated white count upon admission with a repeat normal at 8.4. Electrolytes and renal function is within normal limits. Troponins negative 3. Upon examination, patient is resting comfortably in bed. She denies further complaints of abdominal discomfort. She says overall at home up until yesterday she had been feeling fairly well. She's had has a history of dizziness in the past however this has improved since some medication adjustments by Dr. Allen. Vital signs have been relatively stable with some systolic blood pressures in the 90s after pain medication administration. 04/23/2017 Patient was seen and examined this morning, denies any dizziness or lightheadedness. Blood pressure 104/50 with a heart rate in the 70s, 96% on 2 L of oxygen. No arrhythmias have been documented on the monitor. White blood cell count 10.9, hemoglobin 10.4, platelet count 2:30. Sodium 138, potassium 4.5, BUN 14, creatinine 0.6. She is status post hip surgery. Objective - Vital Signs Vital signs: Vital Signs Temp 98.2 F 04/23/17 15:01 Pulse 84 04/23/17 15:29 Resp 17 04/23/17 15:01 BP 103/59 04/23/17 15:01 Pulse Ox 96 04/23/17 15:01 Intake & Output 04/22/17 04/23/17 04/23/17 18:59 06:59 18:59 Intake Total 3756 300 844 Output Total 1350 700 Balance 2406 -400 844 Weight 81 kg Intake: IV 2352 300 400 Lactated Ringers 1,000 ml 300 As IV .STK-MED ONE Rx#: [id number] Sodium Chloride 0.9% 1, 1700 400 000 ml @ 100 mls/hr IV . Q10H [facility] Rx#:[id number] Intake, IV Titration 600 Amount Lactated Ringers 1,000 ml 600 As IV .STK-MED ONE Rx#: [id number] Oral 804 444 Output: Urine 1200 700 Uretheral (Alvares) 900 Estimated Blood Loss 150 Other: Voiding Method Bedpan Indwelling Catheter Indwelling Catheter # Voids 2 - Exam PHYSICAL EXAMINATION: HEENT: Head is atraumatic, normocephalic. Pupils equal, round. Neck is supple. There is no elevated jugular venous pressure. HEART EXAMINATION: Heart S1, S2 normal. No murmur or gallop heard. CHEST EXAMINATION: Lungs are clear to auscultation and precussion. No chest wall tenderness is noted on palpation or with deep breathing. ABDOMEN: Soft, nontender. Bowel sounds are heard. No organomegaly noted. EXTREMITIES: 2+ peripheral pulses with no evidence of peripheral edema and no calf tenderness noted. NEUROLOGIC patient is awake, alert and oriented -3. . - Labs CBC & Chem 7: 04/23/17 05:41 04/23/17 05:41 Labs: Abnormal Lab Results - Last 24 Hours (Table) 04/23/17 04/23/17 Range/Units 05:41 05:41 WBC 10.9 H (3.8-10.6) k/uL RBC 3.57 L (3.80-5.40) m/uL Hgb 10.4 L (11.4-16.0) gm/dL Hct 32.9 L (34.0-46.0) % Carbon Dioxide 31 H (22-30) mmol/L Glucose 162 H (74-99) mg/dL Assessment and Plan Plan: Assessment and plan #1 syncope, echocardiogram Doppler study was performed which revealed an ejection fraction of 55 to 60%. #2 left hip fracture status post surgery #3 COPD #4 hyperlipidemia Plan From cardiology's perspective, no arrhythmias have been noted on the monitor, no significant orthostasis. At time of discharge patient was recommended to go home with a 30 day event monitor. DNP note has been reviewed, I agree with a documented findings and plan of care. Patient was seen and examined.
--- NOTE | 2017-04-23 17:02 | P.PN ---
Subjective Progress Note Date: 04/23/17 Progress note being dictated for Dr. Vizcaino. Interval history:72-year-old female was admitted secondary to syncopal episode and left hip fracture patient the pain is fairly well controlled but is nauseous quite a bit patient's Pepcid will be switched to Protonix and the patient will be started on Zofran on as-needed basis and morphine was added patient is quite anxious lasted because of his Xanax was added last night which is her home medication. And patient is not confused otherwise doing okay. Her abdominal pain resolved Constitutional: Denied any fatigue denied any fever. Cardio vascular: denied any chest pain, palpitations Gastrointestinal denied any nausea vomiting Pulmonary: Denied any shortness of breath cough Neurologic denied any new focal deficits 04/23/2017 pain better controlled. Up in chair, passing flatus, no bowel movement. No arrhythmias per telemetry. Objective - Vital Signs Vital signs: Vital Signs Temp 97.9 F 04/23/17 07:38 Pulse 77 04/23/17 07:43 Resp 17 04/23/17 07:43 BP 115/65 04/23/17 07:38 Pulse Ox 94 L 04/23/17 07:38 Intake & Output 04/22/17 04/23/17 04/23/17 18:59 06:59 18:59 Intake Total 3756 300 222 Output Total 1350 700 Balance 2406 -400 222 Weight 81 kg Intake: IV 2352 300 Lactated Ringers 1,000 ml 300 As IV .STK-MED ONE Rx#: [id number] Sodium Chloride 0.9% 1, 1700 000 ml @ 100 mls/hr IV . Q10H [facility] Rx#:[id number] Intake, IV Titration 600 Amount Lactated Ringers 1,000 ml 600 As IV .STK-MED ONE Rx#: [id number] Oral 804 222 Output: Urine 1200 700 Uretheral (Alvares) 900 Estimated Blood Loss 150 Other: Voiding Method Bedpan Indwelling Catheter Indwelling Catheter # Voids 2 - Exam GENERAL: The patient is alert and oriented x3, sitting up in bed, no acute distress. Well developed, well nourished. HEENT: Pupils are round and equally reacting to light. EOMI. No scleral icterus. No conjunctival pallor. Normocephalic, atraumatic. CARDIOVASCULAR: S1 and S2 present. No murmurs, rubs, or gallops. PULMONARY: Chest is clear to auscultation, no wheezing or crackles. ABDOMEN: Soft, nontender, nondistended, normoactive bowel sounds. No palpable organomegaly. MUSCULOSKELETAL: Deferred to orthopedic surgery EXTREMITIES: No cyanosis, clubbing, or pedal edema. NEUROLOGICAL: Gross neurological examination did not reveal any focal deficits. SKIN: No rashes. - Labs CBC & Chem 7: 04/23/17 05:41 04/23/17 05:41 Labs: Abnormal Lab Results - Last 24 Hours (Table) 04/22/17 04/23/17 04/23/17 Range/Units 13:54 05:41 05:41 WBC 11.9 H 10.9 H (3.8-10.6) k/uL RBC 3.57 L (3.80-5.40) m/uL Hgb 10.4 L (11.4-16.0) gm/dL Hct 32.9 L (34.0-46.0) % MCHC 30.9 L (31.0-37.0) g/dL Neutrophils # 11.5 H (1.3-7.7) k/uL Lymphocytes # 0.2 L (1.0-4.8) k/uL Carbon Dioxide 31 H (22-30) mmol/L Glucose 162 H (74-99) mg/dL Assessment and Plan Assessment: -Syncope: Secondary to hypotension, may be medication related. Echo reports EF of 55-60% -Left hip fracture status post surgical repair -COPD without any acute exacerbation -Hyperlipidemia Gastroesophageal reflux disease -Anxiety disorder Plan: Continue on current medication regime ,monitoring and symptomatic treatment aggressive pulmonary toileting. PT/OT. Pain management and anticoagulation as per orthopedics. Social work assisting in discharge planning , discussing potential subacute rehab. The impression and plan of care has been dictated as directed. : I performed a history and examination of this patient, discussed the same with the dictator. I agree with the dictator's note ,documented as a scribe. Any additional findings or plans will be noted.
[2017-04-23] MEDS ORDERED: WARFARIN 7.5 MG TAB PO ONE (18:00)
[2017-04-23] MEDS: ATORVASTATIN 20 MG TAB PO SCH (22:48)
[2017-04-23] MEDS: MELATONIN 3 MG TABLET PO SCH (22:48)
[2017-04-23] MEDS: MONTELUKAST 10 MG TAB PO SCH (22:48)
[2017-04-23] MEDS: MORPHINE ORAL SOLN 10 MG/5 ML CUP PO PRN (23:01)
[2017-04-24] MEDS: ONDANSETRON 4 MG/2 ML VIAL IVP PRN (02:47)
[2017-04-24] MEDS: SODIUM CHLORIDE 0.9% 1,000 ML IV SCH ×3 (05:27→21:27)
[2017-04-24] MEDS: MORPHINE ORAL SOLN 10 MG/5 ML CUP PO PRN (05:58)
[2017-04-24] MEDS: BUDESONIDE 0.5 MG/2 ML NEBU INHALATION SCH ×2 (06:07→20:14)
[2017-04-24] MEDS: IPRATROPIUM-ALBUTEROL 3 ML NEB INHALATION SCH ×4 (06:07→20:14)
[2017-04-24] MEDS: ALPRAZolam 0.5 MG TAB PO PRN ×2 (06:34→14:30)
[2017-04-24] MEDS ORDERED: HYDROcodone/APAP 5-325MG 1 EACH TAB PO PRN ×2 (09:35)
[2017-04-24] MEDS ORDERED: MORPHINE SULFATE 4 MG/ML SYRINGE IVP PRN ×2 (09:38)
--- NOTE | 2017-04-24 09:54 | P.PN ---
Subjective Progress Note Date: 04/24/17 Principal diagnosis: Status post left hip hemiarthroplasty for hip fracture Patient is seen at bedside this morning. She is a pleasant 72-year-old female that is postop day #2 from a left hip hemiarthroplasty performed by Dr. Sauceda for a left hip fracture. She is struggling this morning with nausea and vomiting and pain control. Otherwise she has no new complaints including numbness, tingling, calf pain, fever, chills, chest pain or shortness of breath. Objective - Vital Signs Vital signs: Vital Signs Temp 98.7 F 04/24/17 07:44 Pulse 106 H 04/24/17 07:44 Resp 20 04/24/17 07:44 BP 122/73 04/24/17 07:44 Pulse Ox 96 04/24/17 07:44 Intake & Output 04/23/17 04/24/17 04/24/17 18:59 06:59 18:59 Intake Total 1066 Output Total 1750 Balance -684 Intake: IV 400 Sodium Chloride 0.9% 1, 400 000 ml @ 100 mls/hr IV . Q10H [facility] Rx#:[id number] Oral 666 Output: Urine 1750 Other: Voiding Method Indwelling Catheter Bedpan Toilet # Voids 2 - Exam Inspection of the left lower extremity shows a benign surgical wound with no active bleeding or drainage. Neurovascular status is grossly intact with motor and sensation throughout the leg. Calf is soft and nontender. 2+ dorsalis pedis pulses less than 2 second cap refill present. - Constitutional General appearance: Present: no acute distress - Psychiatric Psychiatric: Present: A&O x's 3, appropriate affect, intact judgment & insight - Labs CBC & Chem 7: 04/23/17 05:41 04/23/17 05:41 Assessment and Plan (1) Hip fracture Narrative/Plan: I have ordered promethazine to address her continued nausea/vomiting that has not improved despite receiving Zofran. I've also ordered her appropriate IV pain medication and have added Hammond to her oral pain medicine regimen. She'll continue with routine postoperative orthopedic protocol including pain management, wound care, physical therapy, DVT prophylaxis and medical management. Expected that she will discharge/transfer in the next 1-2 days. Current Visit: Yes Status: Acute Priority: Medium Code(s): S72.009A - FRACTURE OF UNSP PART OF NECK OF UNSP FEMUR, INIT SNOMED Code(s): 846304433 Time with Patient: Less than 30
[2017-04-24] MEDS: MORPHINE SULFATE 4 MG/ML SYRINGE IVP PRN ×2 (10:03→14:34)
[2017-04-24] MEDS: PROMETHAZINE INJ 25 MG/ML 1 ML VIAL IM PRN (10:16)
[2017-04-24 10:28] LABS: Basophils % (A) 0 %; Eosinophils # (A) 0.2 k/uL (0-0.7); Eosinophils % (A) 4 %; HCT 33.3 % (34.0-46.0); Lymphocytes # (A) 0.4 k/uL (1.0-4.8); Lymphocytes % (A) 8 %; MCH 30.2 pg (25.0-35.0); MCHC 32.9 g/dL (31.0-37.0); MCV 91.6 fL (80.0-100.0); Mean Platelet Volume 7.1; Monocytes # (A) 0.3 k/uL (0-1.0); Monocytes % (A) 6 %; Neutrophils # (A) 3.7 k/uL (1.3-7.7); Neutrophils % (A) 81 %; Platelet Count 229 k/uL (150-450); RBC 3.63 m/uL (3.80-5.40); RDW 12.9 % (11.5-15.5); WBC 4.5 k/uL (3.8-10.6)
[2017-04-24] MEDS: DILTIAZEM CD 240 MG CAP.ER.24H PO SCH (12:20)
[2017-04-24] MEDS: PANTOPRAZOLE 40 MG TABLET PO SCH (12:21)
[2017-04-24] MEDS: predniSONE 10 MG TAB PO SCH (12:21)
[2017-04-24] MEDS: MULTIVITAMINS, THERA 1 EACH TAB PO SCH (12:21)
[2017-04-24] MEDS: SERTRALINE 50 MG TAB PO SCH (12:21)
[2017-04-24 12:55] LABS: INR 1.5 (<1.2)
--- NOTE | 2017-04-24 17:08 | XR ---
EXAMINATION TYPE: XR chest 1V portable DATE OF EXAM: 04/24/2017 COMPARISON: 04/20/2017 HISTORY: Chest pain TECHNIQUE: Single frontal view of the chest is obtained. FINDINGS: Heart and mediastinum appear deviated to the right side. There are chest leads. There is n o heart failure. Thoracic aorta is atheromatous. Exam is limited by portable lordotic projection. The re is possible increased density in the periphery of the right lower lobe. IMPRESSION: Limited exam. There is possible new volume loss and atelectasis in the right lung compar ed to old exam. No heart failure. Possible infiltrate in the lateral right lower lobe appears new.
[2017-04-24] MEDS ORDERED: WARFARIN 5 MG TAB PO ONE (18:00)
--- NOTE | 2017-04-24 19:43 | P.PN ---
Subjective Progress Note Date: 04/24/17 Progress note being dictated for Dr. Vizcaino. Interval history:72-year-old female was admitted secondary to syncopal episode and left hip fracture patient the pain is fairly well controlled but is nauseous quite a bit patient's Pepcid will be switched to Protonix and the patient will be started on Zofran on as-needed basis and morphine was added patient is quite anxious lasted because of his Xanax was added last night which is her home medication. And patient is not confused otherwise doing okay. Her abdominal pain resolved Constitutional: Denied any fatigue denied any fever. Cardio vascular: denied any chest pain, palpitations Gastrointestinal denied any nausea vomiting Pulmonary: Denied any shortness of breath cough Neurologic denied any new focal deficits 04/23/2017 pain better controlled. Up in chair, passing flatus, no bowel movement. No arrhythmias per telemetry. 04/24/2017. Postop day #2. Complains of nausea vomiting, abdominal pain, generalized pain controll. CT previously reported cholelithiasis. Afebrile, normal WBC. Review of systems: CONSTITUTIONAL: No fever, no malaise, fatigue. HEENT: No recent visual problems or hearing problems. Denied any sore throat. CARDIOVASCULAR: No chest pain, orthopnea, PND, no palpitations, no syncope. PULMONARY: No shortness of breath, no cough, no hemoptysis. GASTROINTESTINAL: No diarrhea, positive nausea, no vomiting, abdominal pain. Normoactive bowel sounds. NEUROLOGICAL: No headaches, no weakness, no numbness. HEMATOLOGICAL: Denies any bleeding or petechiae. GENITOURINARY: Denies any burning micturition, frequency, or urgency. ENDOCRINE: Denies any polyuria or polydipsia. PSYCHIATRIC: No anxiety, no depression The rest of the 14 point review of systems is negative Active Medications Acetaminophen/Codeine Phosphate (Tylenol #3) 1 each PO Q3HR PRN PRN Reason: Pain Scale 1 to 5 Acetaminophen/Codeine Phosphate (Tylenol #3) 2 each PO Q3HR PRN PRN Reason: Pain Scale 6 to 10 Last Admin: 04/23/17 19:16 Dose: 2 each Hydrocodone Bitart/Acetaminophen ([place] 5-325) 1 each PO Q4HR PRN PRN Reason: Pain Scale 1 to 5 Hydrocodone Bitart/Acetaminophen ([place] 5-325) 2 each PO Q6HR PRN PRN Reason: Pain Scale 6 to 10 Albuterol Sulfate (Ventolin Nebulized) 2.5 mg INHALATION RT-Q4H PRN PRN Reason: Shortness Of Breath Albuterol/Ipratropium (Duoneb 0.5 Mg-3 Mg/3 Ml Soln) 3 ml INHALATION RT-QID COUNT INCLUDES THE [facility] Last Admin: 04/24/17 15:54 Dose: 3 ml Alprazolam (Xanax) 0.5 mg PO TID PRN PRN Reason: Anxiety Last Admin: 04/24/17 14:30 Dose: 0.5 mg Atorvastatin Calcium (Lipitor) 20 mg PO [facility] Last Admin: 04/23/17 22:48 Dose: 20 mg Budesonide (Pulmicort) 0.5 mg INHALATION RT-BID COUNT INCLUDES THE [facility] Last Admin: 04/24/17 06:07 Dose: 0.5 mg Diltiazem HCl (Cardizem Cd) 240 mg PO DAILY COUNT INCLUDES THE [facility] Last Admin: 04/24/17 12:20 Dose: 240 mg Sodium Chloride (Saline 0.9%) 1,000 mls @ 100 mls/hr IV .Q10H COUNT INCLUDES THE [facility] Last Admin: 04/24/17 17:32 Dose: Not Given Melatonin (Melatonin) 3 mg PO [facility] Last Admin: 04/23/17 22:48 Dose: 3 mg Miscellaneous Information (Coumadin Per Ortho Protocol) 1 each MISCELLANE DAILY @1200 ROMIE PRN Reason: Protocol Last Admin: 04/24/17 17:31 Dose: 1 each Montelukast Sodium (Singulair) 10 mg PO [facility] Last Admin: 04/23/17 22:48 Dose: 10 mg Morphine Sulfate (Morphine Sulfate (Inj)) 1 mg IVP Q3HR PRN PRN Reason: Pain Scale 1 to 3 Morphine Sulfate (Morphine Sulfate (Inj)) 2 mg IVP Q3HR PRN PRN Reason: Pain Scale 4 to 6 Morphine Sulfate (Morphine Sulfate (Inj)) 4 mg IVP Q3HR PRN PRN Reason: Pain Scale 7 to 10 Last Admin: 04/24/17 14:34 Dose: 4 mg Multivitamins (Theragran) 1 each PO DAILY@1200 ROMIE Last Admin: 04/24/17 12:21 Dose: 1 each Naloxone HCl (Narcan) 0.2 mg IV Q2M PRN PRN Reason: Opioid Reversal Ondansetron HCl (Zofran) 4 mg IVP Q6HR PRN PRN Reason: Nausea And Vomiting Last Admin: 04/24/17 02:47 Dose: 4 mg Pantoprazole Sodium (Protonix) 40 mg PO AC-BRKFST COUNT INCLUDES THE [facility] Last Admin: 04/24/17 12:21 Dose: 40 mg Polyethylene Glycol (Miralax) 17 gm PO DAILY PRN PRN Reason: Constipation Prednisone () 10 mg PO DAILY COUNT INCLUDES THE [facility] Last Admin: 04/24/17 12:21 Dose: 10 mg Promethazine HCl (Phenergan) 25 mg IM Q6HR PRN PRN Reason: Nausea Last Admin: 04/24/17 10:16 Dose: 25 mg Sertraline HCl (Zoloft) 50 mg PO DAILY COUNT INCLUDES THE [facility] Last Admin: 04/24/17 12:21 Dose: 50 mg Objective - Vital Signs Vital signs: Vital Signs Temp 98.5 F 04/24/17 15:00 Pulse 88 04/24/17 16:05 Resp 16 04/24/17 16:05 BP 99/62 04/24/17 15:00 Pulse Ox 95 04/24/17 15:54 Intake & Output 04/23/17 04/24/17 04/24/17 18:59 06:59 18:59 Intake Total 1066 Output Total 1750 Balance -684 Intake: IV 400 Sodium Chloride 0.9% 1, 400 000 ml @ 100 mls/hr IV . Q10H COUNT INCLUDES THE [facility] Rx#:[id number] Oral 666 Output: Urine 1750 Other: Voiding Method Indwelling Catheter Bedpan Toilet # Voids 2 2 - Exam GENERAL: The patient is alert and oriented x3, tired appearing HEENT: Pupils are round and equally reacting to light. EOMI. No scleral icterus. No conjunctival pallor. Normocephalic, atraumatic. CARDIOVASCULAR: S1 and S2 present. No murmurs, rubs, or gallops. PULMONARY: Chest is clear to auscultation, no wheezing or crackles. ABDOMEN: Soft, nontender, nondistended, normoactive bowel sounds. No palpable organomegaly. MUSCULOSKELETAL: Deferred to orthopedic surgery EXTREMITIES: No cyanosis, clubbing, or pedal edema. NEUROLOGICAL: Gross neurological examination did not reveal any focal deficits. SKIN: No rashes. - Labs CBC & Chem 7: 04/24/17 09:48 04/23/17 05:41 Labs: Abnormal Lab Results - Last 24 Hours (Table) 04/24/17 04/24/17 Range/Units 09:48 09:48 RBC 3.63 L (3.80-5.40) m/uL Hgb 11.0 L (11.4-16.0) gm/dL Hct 33.3 L (34.0-46.0) % Lymphocytes # 0.4 L (1.0-4.8) k/uL PT 14.0 H (9.0-12.0) sec INR 1.5 H (<1.2) Assessment and Plan Assessment: -Syncope: Secondary to hypotension, may be medication related. Echo reports EF of 55-60% -Left hip fracture status post surgical repair -COPD without any acute exacerbation -Hyperlipidemia Gastroesophageal reflux disease -Anxiety disorder -CT suggestive of cholelithiasis, new onset nausea vomiting abdominal pain, workup in progress. Plan: Continue on current medication regime ,monitoring and symptomatic treatment aggressive pulmonary toileting.R/O influenza, infulenza A & B swab ordered. General surgical consult ordered.Discussed plan with RN who will speak directlly with general surgeon.portable chest x-ray. PT/OT. Pain management and anticoagulation as per orthopedics. Further recommendations to follow. The impression and plan of care has been dictated as directed. : I performed a history and examination of this patient, discussed the same with the dictator. I agree with the dictator's note ,documented as a scribe. Any additional findings or plans will be noted.
[2017-04-24] MEDS: ATORVASTATIN 20 MG TAB PO SCH (20:34)
[2017-04-24] MEDS: MELATONIN 3 MG TABLET PO SCH (20:35)
[2017-04-24] MEDS: MONTELUKAST 10 MG TAB PO SCH (20:35)
[2017-04-25] MEDS: ALPRAZolam 0.5 MG TAB PO PRN ×2 (06:40→14:13)
[2017-04-25] MEDS: Acetaminophen-Codeine 300-30mg TAB PO PRN ×3 (06:40→14:13)
[2017-04-25] MEDS: ONDANSETRON 4 MG/2 ML VIAL IVP PRN (07:02)
[2017-04-25] MEDS: BUDESONIDE 0.5 MG/2 ML NEBU INHALATION SCH (07:08)
[2017-04-25] MEDS: IPRATROPIUM-ALBUTEROL 3 ML NEB INHALATION SCH ×2 (07:08→11:15)
--- NOTE | 2017-04-25 08:05 | P.DS ---
Providers Date of admission: 04/20/17 14:20 Expected date of discharge: 04/25/17 Attending physician: Frederic Yu MD Consults: 04/20/17 14:21 Consult Physician Urgent Consulting Provider: Anson Sauceda Consult Reason/Comments: l hip fracture Do you want consulting provider notified?: Yes 04/20/17 14:23 Consult Physician Urgent Consulting Provider: Grayson Allen Consult Reason/Comments: syncope Do you want consulting provider notified?: Yes 04/24/17 16:46 Consult Physician Routine Consulting Provider: Priyank Steen Consult Reason/Comments: Abd pain Do you want consulting provider notified?: Yes Primary care physician: Frederic Yu MD - Discharge Diagnosis(es) (1) Nondisplaced fracture of neck of left femur Current Visit: Yes Status: Acute (2) Syncope Current Visit: Yes Status: Acute (3) History of hemiarthroplasty of left hip Current Visit: Yes Status: Acute Hospital Course: This is a 72-year-old female who presented on 04/20/2017 after falling during a syncopal episode and sustaining injury to the left hip. On exam and x-ray in the emergency department she was found to have a hip fracture. The pt is admitted to internal medicine for workup regarding syncopal episode. We were consulted for surgical intervention and care. The patient is taken to surgery for hemiarthroplasty of the left hip on 2017. The procedure is performed without complication or sequelae. The patient is doing well postoperatively. Vital signs are stable on postop day # 3. There are no new complaints or concerns. The patient is discharged to inpatient rehab pending medical clearance today. Please refer to the med rec for accurate list of medications. Plan - Discharge Summary Discharge Rx Participant: Yes New Discharge Prescriptions: New HYDROcodone/APAP 5-325MG [[place] 5-325] 1 - 2 each PO Q4-6H PRN #90 tab PRN Reason: Pain Sennosides-Docusate Sodium [Senokot-S] 1 tab PO BID #60 tablet Warfarin [Coumadin] 2.5 mg PO DAILY #30 tab No Action Lisinopril 40 mg PO DAILY Simvastatin [Zocor] 40 mg PO HS Sertraline HCl [Zoloft] 50 mg PO DAILY ALPRAZolam [Xanax] 0.5 mg PO TID PRN #20 tab PRN Reason: Anxiety Ranitidine HCl [Zantac] 150 mg PO BID Ipratropium/Albuterol Sulfate [Combivent Respimat Inhaler] 1 puff INHALATION RT-QID Albuterol Sulfate [Proair Hfa] 2 puff INHALATION RT-Q4H PRN PRN Reason: Shortness Of Breath Melatonin 3 mg PO HS Printer-3 Fatty Acids/Fish Oil [Fish Oil 1,000 mg Softgel] 1 each PO DAILY Flaxseed Oil [Printer-3 Flaxseed Oil] 1,000 mg PO DAILY predniSONE 10 mg PO DAILY Montelukast Sodium [Singulair] 10 mg PO HS Diltiazem Cd [Cardizem CD] 240 mg PO DAILY Furosemide [Lasix] 20 mg PO DAILY PRN PRN Reason: Edema Budesonide [Pulmicort] 0.5 mg INHALATION RT-BID Prasterone (Dhea) [Dhea] 50 mg PO DAILY Discharge Medication List Lisinopril 40 mg PO DAILY 02/20/15 [History] Sertraline HCl [Zoloft] 50 mg PO DAILY 02/20/15 [History] Simvastatin [Zocor] 40 mg PO HS 02/20/15 [History] ALPRAZolam [Xanax] 0.5 mg PO TID PRN #20 tab 03/02/15 [Rx] Albuterol Sulfate [Proair Hfa] 2 puff INHALATION RT-Q4H PRN 03/01/16 [History] Diltiazem Cd [Cardizem CD] 240 mg PO DAILY 03/01/16 [History] Flaxseed Oil [Printer-3 Flaxseed Oil] 1,000 mg PO DAILY 03/01/16 [History] Furosemide [Lasix] 20 mg PO DAILY PRN 03/01/16 [History] Ipratropium/Albuterol Sulfate [Combivent Respimat Inhaler] 1 puff INHALATION RT- QID 03/01/16 [History] Melatonin 3 mg PO HS 03/01/16 [History] Montelukast Sodium [Singulair] 10 mg PO HS 03/01/16 [History] Printer-3 Fatty Acids/Fish Oil [Fish Oil 1,000 mg Softgel] 1 each PO DAILY [History] Ranitidine HCl [Zantac] 150 mg PO BID 03/01/16 [History] predniSONE 10 mg PO DAILY 03/01/16 [History] Budesonide [Pulmicort] 0.5 mg INHALATION RT-BID 04/20/17 [History] Prasterone (Dhea) [Dhea] 50 mg PO DAILY 04/20/17 [History] HYDROcodone/APAP 5-325MG [[place] 5-325] 1 - 2 each PO Q4-6H PRN #90 tab 04/25/17 [Rx] Sennosides-Docusate Sodium [Senokot-S] 1 tab PO BID #60 tablet 04/25/17 [Rx] Warfarin [Coumadin] 2.5 mg PO DAILY #30 tab 04/25/17 [Rx] Follow up Appointment(s)/Referral(s): Tory Gonzalez MD [REFERRING] - 1-2 days Anson Sauceda MD [STAFF PHYSICIAN] - 3 Weeks Activity/Diet/Wound Care/Special Instructions: Event Monitor outpatient as per cardiology. May bear weight as tolerated with walker. Maintain posterior hip precautions. May shower if no drainage from incision. Discharge Disposition: TRANSFER TO SNF/ECF
[2017-04-25] MEDS: SODIUM CHLORIDE 0.9% 1,000 ML IV SCH (08:23)
[2017-04-25] MEDS: MULTIVITAMINS, THERA 1 EACH TAB PO SCH (08:25)
[2017-04-25] MEDS: predniSONE 10 MG TAB PO SCH (08:25)
[2017-04-25] MEDS: SERTRALINE 50 MG TAB PO SCH (08:25)
[2017-04-25] MEDS: PANTOPRAZOLE 40 MG TABLET PO SCH (08:25)
[2017-04-25] MEDS: DILTIAZEM CD 240 MG CAP.ER.24H PO SCH (08:25)
[2017-04-25] MEDS: PROMETHAZINE INJ 25 MG/ML 1 ML VIAL IM PRN (09:50)
[2017-04-25 09:54] LABS: Basophils % (A) 0 %; Eosinophils # (A) 0.1 k/uL (0-0.7); Eosinophils % (A) 3 %; HCT 32.5 % (34.0-46.0); HGB 10.6 gm/dL (11.4-16.0); Lymphocytes # (A) 0.9 k/uL (1.0-4.8); Lymphocytes % (A) 18 %; MCH 29.6 pg (25.0-35.0); MCHC 32.5 g/dL (31.0-37.0); MCV 91.3 fL (80.0-100.0); Mean Platelet Volume 7.5; Monocytes # (A) 0.3 k/uL (0-1.0); Monocytes % (A) 6 %; Neutrophils # (A) 3.7 k/uL (1.3-7.7); Neutrophils % (A) 72 %; Platelet Count 230 k/uL (150-450); RBC 3.56 m/uL (3.80-5.40); RDW 13.2 % (11.5-15.5); WBC 5.1 k/uL (3.8-10.6)
[2017-04-25 10:23] LABS: Anion Gap 6 mmol/L; Blood Urea Nitrogen 13 mg/dL (7-17); Calcium 7.6 mg/dL (8.4-10.2); Carbon Dioxide 31 mmol/L (22-30); Chloride 105 mmol/L (98-107); Glucose 80 mg/dL (74-99); Potassium 3.4 mmol/L (3.5-5.1); Sodium 142 mmol/L (137-145)
--- NOTE | 2017-04-25 11:50 | P.GSCN ---
History of Present Illness Consult date: 04/25/17 Reason for Consult: Abdominal pain History of present illness: 72-year-old female seen by surgical service at the request of the attending for abdominal pain with nausea vomiting onset 24 hours prior. Currently this morning the patient states abdominal pain has resolved does not feel nauseated. Denies any further nausea or vomiting. Patient initially presented to the emergency room on April 20 with a syncopal episode sustaining an injury to the left hip. X-rays in the emergency room at that time showed a left hip fracture. Patient's been followed by orthopedic service. Did undergo a arthroplasty of the left hip on April 22. Patient's discharge plan [facility]. Patient currently is denying any prior episodes of abdominal pain. On admission on April 20 patient had a CAT scan abdomen pelvis the bowel showed extensive diverticular changes associated within the sigmoid colon. No evidence of a bowel obstruction. The left lower quadrant showed a small anterior abdominal wall hernia containing fat Past surgical history heart catheterization, hernia repair, orthopedic surgery, tonsillectomy, left elbow surgery, bilateral oophorectomy, left knee surgery. indicates she has not had a colonoscopy in the past Past medical history anxiety depressive disorder COPD, esophageal reflux, hyperlipidemia, hypertension Review of Systems Essentially unremarkable except as mentioned in the present illness Past Medical History Past Medical History: Asthma, Chest Pain / Angina, COPD, GERD/Reflux, Hyperlipidemia, Hypertension, Pneumonia Additional Past Medical History / Comment(s): oxygen NC @2L continuous, gallstones, pernicious anemia, History of Any Multi-Drug Resistant Organisms: None Reported Past Surgical History: Hernia Repair, Orthopedic Surgery, Tonsillectomy Additional Past Surgical History / Comment(s): left elbow surgery, abscess in stomach area, abdominial scar tissue, tamie oophorectomy, left knee surgery, Past Anesthesia/Blood Transfusion Reactions: No Reported Reaction Past Psychological History: Anxiety, Depression Smoking Status: Former smoker Past Alcohol Use History: None Reported Additional Past Alcohol Use History / Comment(s): quit smoking 2008, smoked since age 18, 2 PPD Past Drug Use History: None Reported - Past Family History Mother Family Medical History: No Reported History Father Family Medical History: CVA/TIA, Myocardial Infarction ([place]) Medications and Allergies Home Medications Medication Instructions Recorded Confirmed Type Lisinopril 40 mg PO DAILY 02/20/15 04/20/17 History Sertraline HCl [Zoloft] 50 mg PO DAILY 02/20/15 04/20/17 History Simvastatin [Zocor] 40 mg PO HS 02/20/15 04/20/17 History ALPRAZolam [Xanax] 0.5 mg PO TID PRN #20 tab 03/02/15 04/20/17 Rx Albuterol Sulfate [Proair Hfa] 2 puff INHALATION RT-Q4H PRN 03/01/16 04/20/17 History Diltiazem Cd [Cardizem CD] 240 mg PO DAILY 03/01/16 04/20/17 History Flaxseed Oil [[place]ler-3 Flaxseed Oil] 1,000 mg PO DAILY 03/01/16 04/20/17 History Furosemide [Lasix] 20 mg PO DAILY PRN 03/01/16 04/20/17 History Ipratropium/Albuterol Sulfate 1 puff INHALATION RT-QID 03/01/16 04/20/17 History [Combivent Respimat Inhaler] Melatonin 3 mg PO HS 03/01/16 04/20/17 History Montelukast Sodium [Singulair] 10 mg PO HS 03/01/16 04/20/17 History [place]-3 Fatty Acids/Fish Oil [Fish 1 each PO DAILY 03/01/16 04/20/17 History Oil 1,000 mg Softgel] Ranitidine HCl [Zantac] 150 mg PO BID 03/01/16 04/20/17 History predniSONE 10 mg PO DAILY 03/01/16 04/20/17 History Budesonide [Pulmicort] 0.5 mg INHALATION RT-BID 04/20/17 04/20/17 History Prasterone (Dhea) [Dhea] 50 mg PO DAILY 04/20/17 04/20/17 History HYDROcodone/APAP 5-325MG [[place] 1 - 2 each PO Q4-6H PRN #90 tab 04/25/17 Rx 5-325] Sennosides-Docusate Sodium 1 tab PO BID #60 tablet 04/25/17 Rx [Senokot-S] Warfarin [Coumadin] 2.5 mg PO DAILY #30 tab 04/25/17 Rx Allergies Allergy/AdvReac Type Severity Reaction Status Date / Time No Known Allergies Allergy Verified 04/20/17 11:42 Surgical - Exam Vital Signs Temp Pulse Resp BP Pulse Ox 97.5 F L 75 18 149/73 96 04/20/17 11:24 04/20/17 11:24 04/20/17 11:24 04/20/17 11:24 04/20/17 11:24 GENERAL APPEARANCE: 72 year old female patient is alert, oriented, in no acute distress. VITAL SIGNS: Reviewed HEENT: Head is normocephalic and atraumatic. Pupils are equal and reactive. The nares are patent. Oropharynx is clear without lesions. NECK: Supple without lymphadenopathy. Traches midline. HEART: S1, S2. Regular rate and rhythm. No murmur noted LUNGS: No crackles or wheezes are heard. Adequate air movement bilaterally ABDOMEN: Soft, nontender, nondistended with good bowel sounds. No peritoneal signs. No palpable organomegaly or masses reports no nausea vomiting states had a bowel movement yesterday denies abdominal pain when questioning. EXTREMITIES: Normal skin color and turgor. No cyanosis, rash, ulceration, clubbing or edema. Radial pedal pulses are 2/4 bilaterally. Dressing left hip dry Results - Labs 04/25/17 09:31 04/25/17 09:31 Abnormal Lab Results - Last 24 Hours (Table) 04/24/17 04/25/17 04/25/17 Range/Units 09:48 09:31 09:31 RBC 3.56 L (3.80-5.40) m/uL Hgb 10.6 L (11.4-16.0) gm/dL Hct 32.5 L (34.0-46.0) % Lymphocytes # 0.9 L (1.0-4.8) k/uL PT 14.0 H (9.0-12.0) sec INR 1.5 H (<1.2) Potassium 3.4 L (3.5-5.1) mmol/L Carbon Dioxide 31 H (22-30) mmol/L Creatinine 0.51 L (0.52-1.04) mg/dL Calcium 7.6 L (8.4-10.2) mg/dL Diabetes panel 04/25/17 Range/Units 09:31 Sodium 142 (137-145) mmol/L Potassium 3.4 L (3.5-5.1) mmol/L Chloride 105 (98-107) mmol/L Carbon Dioxide 31 H (22-30) mmol/L BUN 13 (7-17) mg/dL Creatinine 0.51 L (0.52-1.04) mg/dL Glucose 80 (74-99) mg/dL Calcium 7.6 L (8.4-10.2) mg/dL Calcium panel 04/25/17 Range/Units 09:31 Calcium 7.6 L (8.4-10.2) mg/dL Pituitary panel 04/25/17 Range/Units 09:31 Sodium 142 (137-145) mmol/L Potassium 3.4 L (3.5-5.1) mmol/L Chloride 105 (98-107) mmol/L Carbon Dioxide 31 H (22-30) mmol/L BUN 13 (7-17) mg/dL Creatinine 0.51 L (0.52-1.04) mg/dL Glucose 80 (74-99) mg/dL Calcium 7.6 L (8.4-10.2) mg/dL Adrenal panel 04/25/17 Range/Units 09:31 Sodium 142 (137-145) mmol/L Potassium 3.4 L (3.5-5.1) mmol/L Chloride 105 (98-107) mmol/L Carbon Dioxide 31 H (22-30) mmol/L BUN 13 (7-17) mg/dL Creatinine 0.51 L (0.52-1.04) mg/dL Glucose 80 (74-99) mg/dL Calcium 7.6 L (8.4-10.2) mg/dL Assessment and Plan Assessment: Impression Episode of abdominal pain with nausea vomiting resolved Prior to admission syncopal episode sustaining a nondisplaced fracture of the neck of the left femur Johnnie-arthroplasty left hip Computed tomography scan abdomen and pelvis done on April 20 extensive diverticular changes within the sigmoid colon no evidence of a bowel obstruction Computed tomography scan abdomen and pelvis done on April 20 anterior abdominal wall small hiatal hernia no evidence of a bowel obstruction Plan No evidence of an acute surgical abdomen at this time Patient to be followed in the outpatient setting with Dr. martines Continue with orthopedic care From a surgical perspective there is no surgical intervention at this time patient could be discharged [facility] for [facility] defer to the timing to the attending Benefit from an outpatient colonoscopy when orthopedic and medically stable Surgical consultation note dictated for dr martines The above impression and plan of care have been discussed and directed by signing physician. Radha Antoine nurse practitioner acting as scribe for signing physician.
[2017-04-25] MEDS ORDERED: Potassium Replacement Protocol 1 EACH MISC MISCELLANE PRN (12:40)
[2017-04-25] MEDS ORDERED: Magnesium Replacement Protocol 1 EACH MISC MISCELLANE PRN (12:41)
[2017-04-25] MEDS: POTASSIUM CHLORIDE ER 20 MEQ TAB.ER PO SCH ×2 (13:08→14:12)
[2017-04-25 14:03] VITALS: BP 100/64; PULSE 79; RESP 17; TEMP 98.4
--- NOTE | 2017-04-25 16:49 | P.DS ---
Providers Date of admission: 04/20/17 14:20 Expected date of discharge: 04/25/17 Attending physician: MD Dr. Carrillo Selby Consults: 04/20/17 14:21 Consult Physician Urgent Consulting Provider: Anson Sauceda Consult Reason/Comments: l hip fracture Do you want consulting provider notified?: Yes 04/20/17 14:23 Consult Physician Urgent Consulting Provider: Grayson Allen Consult Reason/Comments: syncope Do you want consulting provider notified?: Yes 04/24/17 16:46 Consult Physician Routine Consulting Provider: Priyank Steen Consult Reason/Comments: Abd pain Do you want consulting provider notified?: Yes Primary care physician: MD Dr. Tory Selby [facility] Course: Final Diagnoses: -Syncope: Secondary to hypotension, may be medication related. Echo reports EF of 55-60% -Left hip fracture status post surgical repair -COPD without any acute exacerbation -Hyperlipidemia Gastroesophageal reflux disease -Anxiety disorder -CT suggestive of cholelithiasis, diverticular changes within sigmoid colon, new onset nausea vomiting abdominal pain, resolved. follow-up with general surgery, outpatient colonoscopy recommended. -Probable fibroid uterus per CT, outpatient follow-up with [facility] Hospital Course: This is a 72-year-old female was admitted secondary to syncopal episode and left hip fracture. Underwent left hip hemiarthroplasty, tolerated procedure well. Evaluated by orthopedic surgery, cardiology, Developed new onset nausea, vomiting, abdominal pain. Resolved. Negative for influenza. Evaluated by general surgery and outpatient follow-up recommended with outpatient colonoscopy. Significant clinical improvement. Patient has been cleared by all consults for discharge. Patient is being discharged to [facility] in a stable condition with guarded prognosis. Physical Exam:VSS, alert and oriented 3, no acute distress. CV: Regular S1 and S2. LUNGS: Clear to auscultation.ABD: Soft nontender positive bowel sounds. NEURO: No focal deficits. The impression and plan of care has been dictated as directed. : I performed a history and examination of this patient, discussed the same with the dictator. I agree with the dictator's note ,documented as a scribe. Any additional findings or plans will be noted. Time taken: 35 minutes Patient Condition at Discharge: Stable Plan - Discharge Summary Discharge Rx Participant: Yes New Discharge Prescriptions: New HYDROcodone/APAP 5-325MG [[place] 5-325] 1 - 2 each PO Q4-6H PRN #90 tab PRN Reason: Pain Sennosides-Docusate Sodium [Senokot-S] 1 tab PO BID #60 tablet Warfarin [Coumadin] 2.5 mg PO DAILY #30 tab Albuterol Nebulized [Ventolin Nebulized] 2.5 mg INHALATION RT-Q4H PRN nebu PRN Reason: Shortness Of Breath Ipratropium-Albuterol Nebulize [Duoneb 0.5 mg-3 mg/3 ml Soln] 3 ml INHALATION RT-QID ampul.neb Multivitamins, Thera [Multivitamin (formulary)] 1 each PO DAILY@1200 tab Pantoprazole [Protonix] 40 mg PO AC-BRKFST tablet.dr Continue Simvastatin [Zocor] 40 mg PO HS Sertraline HCl [Zoloft] 50 mg PO DAILY Melatonin 3 mg PO HS [place]-3 Fatty Acids/Fish Oil [Fish Oil 1,000 mg Softgel] 1 each PO DAILY Flaxseed Oil [[place]-3 Flaxseed Oil] 1,000 mg PO DAILY predniSONE 10 mg PO DAILY Montelukast Sodium [Singulair] 10 mg PO HS Diltiazem Cd [Cardizem CD] 240 mg PO DAILY Budesonide [Pulmicort] 0.5 mg INHALATION RT-BID Prasterone (Dhea) [Dhea] 50 mg PO DAILY ALPRAZolam [Xanax] 0.5 mg PO TID PRN #20 tab PRN Reason: Anxiety Discontinued Lisinopril 40 mg PO DAILY Ranitidine HCl [Zantac] 150 mg PO BID Ipratropium/Albuterol Sulfate [Combivent Respimat Inhaler] 1 puff INHALATION RT-QID Albuterol Sulfate [Proair Hfa] 2 puff INHALATION RT-Q4H PRN PRN Reason: Shortness Of Breath Furosemide [Lasix] 20 mg PO DAILY PRN PRN Reason: Edema Discharge Medication List Sertraline HCl [Zoloft] 50 mg PO DAILY 02/20/15 [History] Simvastatin [Zocor] 40 mg PO HS 02/20/15 [History] Diltiazem Cd [Cardizem CD] 240 mg PO DAILY 03/01/16 [History] Flaxseed Oil [Alverda-3 Flaxseed Oil] 1,000 mg PO DAILY 03/01/16 [History] Melatonin 3 mg PO HS 03/01/16 [History] Montelukast Sodium [Singulair] 10 mg PO HS 03/01/16 [History] Alverda-3 Fatty Acids/Fish Oil [Fish Oil 1,000 mg Softgel] 1 each PO DAILY [History] predniSONE 10 mg PO DAILY 03/01/16 [History] Budesonide [Pulmicort] 0.5 mg INHALATION RT-BID 04/20/17 [History] Prasterone (Dhea) [Dhea] 50 mg PO DAILY 04/20/17 [History] ALPRAZolam [Xanax] 0.5 mg PO TID PRN #20 tab 04/25/17 [Rx] Albuterol Nebulized [Ventolin Nebulized] 2.5 mg INHALATION RT-Q4H PRN nebu [Rx] HYDROcodone/APAP 5-325MG [[place] 5-325] 1 - 2 each PO Q4-6H PRN #90 tab 04/25/17 [Rx] Ipratropium-Albuterol Nebulize [Duoneb 0.5 mg-3 mg/3 ml Soln] 3 ml INHALATION RT -QID ampul.neb 04/25/17 [Rx] Multivitamins, Thera [Multivitamin (formulary)] 1 each PO DAILY@1200 tab [Rx] Pantoprazole [Protonix] 40 mg PO AC-BRKFST tablet. 04/25/17 [Rx] Sennosides-Docusate Sodium [Senokot-S] 1 tab PO BID #60 tablet 04/25/17 [Rx] Warfarin [Coumadin] 2.5 mg PO DAILY #30 tab 04/25/17 [Rx] Follow up Appointment(s)/Referral(s): Tory Gonzalez MD [REFERRING] - 05/01/17 10:30 am Anson Sauceda MD [STAFF PHYSICIAN] - 05/11/17 10:00 am Priyank Steen MD [STAFF PHYSICIAN] - 05/08/17 1:20 pm (Please bring insurance cards and current med list.) [facility], of pt's choice [Other] - 1 Week (CT reporting probable fibroid uterus) Patient Instructions/Handouts: Total Hip Replacement (DC) Activity/Diet/Wound Care/Special Instructions: Event Monitor outpatient as per cardiology. lasix & lisinopril on hold currently May bear weight as tolerated with walker. Maintain posterior hip precautions. May shower if no drainage from incision. DIet: cardiac Activity: as tolerated Lytes tomorrow. cbc,bmp in 3 days Discharge Disposition: TRANSFER TO SNF/ECF
== END 2017-04-25 15:12 | DRG 470 ==
LOC: EC 11:06 → 6SEL 14:20 → 3SUR 04-23 21:06
PROVIDERS: ADMIT Internal Medicine; ATTEND Internal Medicine
PROC: 0SRS0J9 Replacement of Left Hip Joint, Femoral Surface with Synthetic Substitute, Cemented, Open Approach (ICD-10-PCS; principal; 2017-04-22 08:00)
DX: M80.852A Other osteoporosis with current pathological fracture, left femur, initial encounter for fracture (principal); J96.11 Chronic respiratory failure with hypoxia; Z99.81 Dependence on supplemental oxygen; M25.052 Hemarthrosis, left hip; J44.9 Chronic obstructive pulmonary disease, unspecified; D25.9 Leiomyoma of uterus, unspecified; E78.5 Hyperlipidemia, unspecified; F32.9 Major depressive disorder, single episode, unspecified; F41.9 Anxiety disorder, unspecified; I10 Essential (primary) hypertension; I49.9 Cardiac arrhythmia, unspecified; K21.9 Gastro-esophageal reflux disease without esophagitis; K43.9 Ventral hernia without obstruction or gangrene; K44.9 Diaphragmatic hernia without obstruction or gangrene; K80.20 Calculus of gallbladder without cholecystitis without obstruction; W19.XXXA Unspecified fall, initial encounter; Z79.01 Long term (current) use of anticoagulants; Z79.899 Other long term (current) drug therapy; Z82.49 Family history of ischemic heart disease and other diseases of the circulatory system; Z87.891 Personal history of nicotine dependence; Z91.81 History of falling; R55 Syncope and collapse; T46.4X5A Adverse effect of angiotensin-converting-enzyme inhibitors, initial encounter
CPT/HCPCS: 12013; 36415; 70450; 71045; 73501; 73502; 74177; 80048; 80053; 81001; 82550; 82553; 83735; 84484; 85025; 85027; 85610; 85730; 87502; 88305; 88311; 93005; 93306; 94640; 94760; 96374; 99285

== ENCOUNTER 2021-06-20 10:19 | Inpatient (IN) | payer MEDICARE, OTHER ==
--- NOTE | 2021-06-20 14:52 | ED ---
General Adult HPI - History of Present Illness Initial comments: Patient was initially seen and evaluated via paper charts due to unexpected EMR down time. Please see paper chart for further detail regarding the history and physical. Briefly, patient is a 76-year-old female presents to the emergency department for shortness of breath and productive cough times one day. She was also having fever. Patient is history of COPD and wears home O2 at 2 L is cannula at baseline. Vital signs upon arrival showed pyrexia of 11.1. On physical exam patient has diminished lung sounds. Laboratory evaluation obtained. No leukocytosis, hemoglobin stable at 12.7. Coag panel is unremarkable. Patient is ordered for breathing treatment. - Related Data Home Medications Medication Instructions Recorded Confirmed RX: Simvastatin [Zocor] 40 mg PO DAILY 02/20/15 06/20/21 RX: Diltiazem Cd [Cardizem CD] 240 mg PO DAILY 03/01/16 06/20/21 RX: Melatonin 3 mg PO HS 03/01/16 06/20/21 RX: Montelukast Sodium [Singulair] 10 mg PO HS 03/01/16 06/20/21 RX: [place]-3 Fatty Acids/Fish Oil 1 cap PO DAILY 03/01/16 06/20/21 [Fish Oil 1,000 mg Softgel] RX: flaxseed oiL [Ring[place]-3 Flaxseed 1,000 mg PO DAILY 03/01/16 06/20/21 Oil] RX: Budesonide [Pulmicort] 0.5 mg INHALATION RT-BID 04/20/17 06/20/21 Albuterol Sulfate [Ventolin HFA] 2 puff INHALATION RT-Q4H PRN 06/20/21 06/20/21 Ipratropium/Albuterol Sulfate 1 puff INHALATION RT-QID 06/20/21 06/20/21 [Combivent Respimat Inhaler] RX: Multivitamins, Thera 1 tab PO DAILY 06/20/21 06/20/21 [Multivitamin (formulary)] RX: Omeprazole 20 mg PO DAILY 06/20/21 06/20/21 RX: predniSONE See Taper PO DAILY 06/20/21 06/20/21 Sertraline [Zoloft] 200 mg PO DAILY 06/20/21 06/20/21 lisinopriL [Zestril] 20 mg PO DAILY 06/20/21 06/20/21 Previous Rx's Medication Instructions Recorded RX: ALPRAZolam [Xanax] 0.5 mg PO TID PRN #20 tab 04/25/17 Allergies Allergy/AdvReac Type Severity Reaction Status Date / Time No Known Allergies Allergy Verified 06/20/21 15:19 Review of Systems ROS Statement: Those systems with pertinent positive or pertinent negative responses have been documented in the HPI. ROS Other: All systems not noted in ROS Statement are negative. Past Medical History Past Medical History: Asthma, Chest Pain / Angina, COPD, GERD/Reflux, Hyperlipidemia, Hypertension, Pneumonia Additional Past Medical History / Comment(s): oxygen [place] @2L continuous, gallstones, pernicious anemia, History of Any Multi-Drug Resistant Organisms: None Reported Past Surgical History: Hernia Repair, Orthopedic Surgery, Tonsillectomy Additional Past Surgical History / Comment(s): left elbow surgery, abscess in stomach area, abdominial scar tissue, tamie oophorectomy, left knee surgery, Past Anesthesia/Blood Transfusion Reactions: No Reported Reaction Past Psychological History: Anxiety, Depression Past Alcohol Use History: None Reported Additional Past Alcohol Use History / Comment(s): quit smoking 2008, smoked since age 18, 2 PPD Past Drug Use History: None Reported - Past Family History Mother Family Medical History: No Reported History Father Family Medical History: CVA/TIA, Myocardial Infarction ([place]) Course Vital Signs 06/20/21 17:16 Temperature 98.3 F Pulse Rate 86 Respiratory 18 Rate Blood Pressure 121/72 O2 Sat by Pulse 95 Oximetry Medical Decision Making - Medical Decision Making Patient reevaluated bedside at 5:24 PM. Patient did not fill comfortable going home because of her breathing issues. Her vital signs were do feel improved. Patient be admitted with consultation to pulmonology. [facility]. Patient's clinical presentation concerning for sys temic inflammatory response syndrome. No obvious bacterial source. - Lab Data Result diagrams: 06/20/21 12:47 Lab Results 06/20/21 06/20/21 06/20/21 Range/Units 11:50 11:50 12:47 WBC 7.8 (3.8-10.6) k/uL RBC 4.34 (3.80-5.40) m/uL Hgb 12.7 (11.4-16.0) gm/dL Hct 39.5 (34.0-46.0) % MCV 91.0 (80.0-100.0) fL MCH 29.2 (25.0-35.0) pg MCHC 32.1 (31.0-37.0) g/dL RDW 12.9 (11.5-15.5) % Plt Count 212 (150-450) k/uL MPV 7.2 Neutrophils % 72 % Lymphocytes % 16 % Monocytes % 6 % Eosinophils % 3 % Basophils % 1 % Neutrophils # 5.7 (1.3-7.7) k/uL Lymphocytes # 1.3 (1.0-4.8) k/uL Monocytes # 0.5 (0-1.0) k/uL Eosinophils # 0.2 (0-0.7) k/uL Basophils # 0.1 (0-0.2) k/uL PT 9.9 (9.0-12.0) sec INR 0.9 (<1.2) APTT 25.0 (22.0-30.0) sec Influenza Type A (PCR) Not Detected (Not Detectd) Influenza Type B (PCR) Not Detected (Not Detectd) RSV (PCR) Not Detected (Not Detectd) SARS-CoV-2 (PCR) Not Detected (Not Detectd) Disposition Clinical Impression: COPD exacerbation, SIRS (systemic inflammatory response syndrome) Disposition: ADMITTED IP TO THIS [facility] Condition: Fair Referrals: Bhavik Gonzalez MD [Primary Care Provider] - 1-2 days Decision Time: 17:25
[2021-06-20 15:00] LABS: Basophils # (A) 0.1 k/uL (0-0.2); Basophils % (A) 1 %; Eosinophils # (A) 0.2 k/uL (0-0.7); Eosinophils % (A) 3 %; HCT 39.5 % (34.0-46.0); HGB 12.7 gm/dL (11.4-16.0); Lymphocytes # (A) 1.3 k/uL (1.0-4.8); Lymphocytes % (A) 16 %; MCH 29.2 pg (25.0-35.0); MCHC 32.1 g/dL (31.0-37.0); Mean Platelet Volume 7.2; Monocytes # (A) 0.5 k/uL (0-1.0); Monocytes % (A) 6 %; Neutrophils # (A) 5.7 k/uL (1.3-7.7); Neutrophils % (A) 72 %; Platelet Count 212 k/uL (150-450); RBC 4.34 m/uL (3.80-5.40); RDW 12.9 % (11.5-15.5); WBC 7.8 k/uL (3.8-10.6)
[2021-06-20 15:13] LABS: INR 0.9 (<1.2); Prothrombin Time 9.9 sec (9.0-12.0)
[2021-06-20] MEDS ORDERED: IPRATROPIUM-ALBUTEROL 3 ML NEB INHALATION STA (17:17)
[2021-06-20] MEDS ORDERED: ACETAMINOPHEN TAB 325 MG TAB PO PRN (17:18)
[2021-06-20] MEDS ORDERED: NALOXONE 0.4 MG/ML 1 ML VIAL IV PRN (17:18)
--- NOTE | 2021-06-20 17:29 | XR ---
EXAMINATION TYPE: XR chest 2V DATE OF EXAM: 06/20/2021 COMPARISON: 04/24/2017 HISTORY: Short of breath TECHNIQUE: FINDINGS: There is some mild interstitial infiltrate left lower lobe. Right lung is clear. Heart size is normal. Trachea is midline. There are no hilar masses. IMPRESSION: There is a mild left lower lobe pneumonia which appears new compared to old exam.
[2021-06-20] MEDS ORDERED: AZITHROMYCIN 500 MG in SODIUM CHLORIDE 0.9% 250 ML IVPB STA (18:44)
[2021-06-20] MEDS ORDERED: cefTRIAXone IN SWFI 1,000 MG/10 ML SYRINGE IVP STA (18:44)
[2021-06-21] MEDS: SODIUM CHLORIDE 0.9% 1,000 ML IV SCH ×2 (03:07→17:17)
[2021-06-21] MEDS ORDERED: ALBUTEROL NEBULIZED 2.5 MG/3 ML INHALATION PRN (08:51)
[2021-06-21] MEDS ORDERED: NON FORMULARY DRUG (Flaxseed Oil [Omega-3 Flaxseed Oil] 1,000 MG Capsule) PO SCH (09:00)
[2021-06-21] MEDS ORDERED: NON FORMULARY DRUG (Omega-3 Fatty Acids/Fish Oil [Fish Oil 1,000 Mg Softgel] 1 EACH Capsul PO SCH (09:00)
[2021-06-21 09:13] LABS: Basophils # (A) 0.01 X 10*3/uL (0.00-0.10); Basophils % (A) 0.2 %; Eosinophils # (A) 0 X 10*3/uL (0.04-0.35); Eosinophils % (A) 0 %; HGB 12.2 g/dL (12.0-15.0); Immature Grans, Automated 0.4 %; Lymphocytes # (A) 0.69 X 10*3/uL (0.90-5.00); Lymphocytes % (A) 13.2 %; MCH 28.4 pg (27.0-32.0); MCHC 30.5 g/dL (32.0-37.0); Mean Platelet Volume 10.3 fL (9.5-12.2); Monocytes # (A) 0.35 X 10*3/uL (0.20-1.00); Monocytes % (A) 6.7 %; NRBC Per 100 WBC 0 /100 WBCS (0.0-0.0); Neutrophils # (A) 4.14 X 10*3/uL (1.80-7.70); Neutrophils % (A) 79.5 %; Platelet Count 219 X 10*3/uL (140-440); RDW 12.8 % (11.5-14.5); WBC 5.21 X 10*3/uL (4.50-10.00)
[2021-06-21 09:29] LABS: African American GFR (CKD) 118.9 (60.0-200.0); Albumin 3.5 g/dL (3.8-4.9); Albumin/Globulin Ratio 1.75 (1.60-3.17); Anion Gap 10.1 mmol/L (10.00-18.00); BUN/Creat Ratio 37.25 Ratio (12.00-20.00); Blood Urea Nitrogen 14.9 mg/dL (9.0-27.0); Calcium 9.1 mg/dL (8.7-10.3); Carbon Dioxide 27.9 mmol/L (20.0-27.5); Magnesium 2.2 mg/dL (1.5-2.4); Non-African American GFR(CKD) 102.6 (60.0-200.0); Potassium 4.6 mmol/L (3.5-5.5); Total Bilirubin 0.2 mg/dL (0.30-1.20); Total Protein 5.5 g/dL (6.2-8.2)
[2021-06-21] MEDS: lisinopriL 20 MG TAB PO SCH (09:39)
[2021-06-21] MEDS: ATORVASTATIN 20 MG TAB PO SCH (09:40)
[2021-06-21] MEDS: MULTIVITAMINS, THERA 1 EACH TAB PO SCH (09:40)
[2021-06-21] MEDS: PANTOPRAZOLE 40 MG TABLET PO SCH (09:40)
[2021-06-21] MEDS: DILTIAZEM CD 240 MG CAP.ER.24H PO SCH (10:24)
[2021-06-21] MEDS: SERTRALINE 100 MG TAB PO SCH (10:24)
[2021-06-21] MEDS: ALPRAZolam 0.5 MG TAB PO PRN ×2 (10:24→20:28)
[2021-06-21] MEDS: IPRATROPIUM-ALBUTEROL 3 ML NEB INHALATION SCH ×3 (12:05→19:55)
[2021-06-21] MEDS: predniSONE 20 MG TAB PO SCH (14:08)
[2021-06-21] MEDS: FAMOTIDINE 20 MG TAB PO SCH ×2 (14:09→20:29)
[2021-06-21] MEDS: AZITHROMYCIN 500 MG TAB PO SCH (14:09)
--- NOTE | 2021-06-21 14:30 | P.HPIM ---
History of Present Illness H&P Date: 06/21/21 This is a very pleasant 76-year-old female who was recently admitted with increasing shortness of breath and COPD acute exacerbation. Patient presented to the emergency department with increasing shortness of breath that started last week and also patient noticed a decrease in appetite along with productive cough and developed a fever. Patient was afebrile on ED admission. Patient does have an extensive past medical history of COPD, asthma, angina, acid reflux, hyperlipidemia, hypertension, chronically wears 2 L of oxygen via nasal cannula at home, gallstones and pernicious anemia, anxiety, depression, former smoker and reports to quitting back in 2008. Patient reports to using inhalers along with nebulized treatments and also reports that she had been using her rescue inhaler more frequently with no relief. On admission to the ER chest x- ray shows a mild left lower lobe pneumonia which appears new to previous exam and patient was given a dose of Zithromax along with ceftriaxone. Patient reports her chronically taking prednisone 10 mg daily. Patient's pulmonary doctor is Dr. Carlos Smith has been consulted. Patient admitting labs reveal a WBC within normal limits at 7.8, hemoglobin 12.7, sodium is 139, potassium 4.6, BUN 14.9, creatinine 0.4, magnesium 2.2 with influenza, RSV, Covid all negative. Patient was admitted for COPD exacerbation and will have pulmonary evaluate the patient. Review Of Systems: Constitutional: Reported fever home, no chills, no night sweats. No weight change. Reports weakness and increased fatigue No daytime sleepiness. EENT: No headache. No blurred vision or double vision, no loss of vision. No loss of Hearing, no ringing in the ears, no dizziness. Reported productive cough No epistaxis. No sore throat. Lungs: Reported increased shortness of breath, productive cough, No wheezing. Cardiovascular: No chest pain, no lower extremity edema. No palpitations. No paroxysmal nocturnal dyspnea. No orthopnea. No lightheadedness or dizziness. No syncopal episodes. Abdominal: No abdominal pain. No nausea, vomiting. No diarrhea. No constipation. No bloody or tarry stools.. No loss of appetite. Genitourinary: No dysuria, increased frequency, urgency. No urinary retention. Musculoskeletal: No myalgias. No muscle weakness, no gait dysfunction, no frequent falls. No back pain. No neck pain. Integumentary: No wounds, no lesions. No rash or pruritus. No unusual bruising. No change in hair or nails. Neurologic: No aphasia. No facial droop. No change in mentation. No head injury. No headache. No paralysis. No paresthesia. Psychiatric: No depression. No anxiety. No mood swings. Endocrine: No abnormal blood sugars. No weight change. No excessive sweating or thirst. No cold intolerance. The rest of the 14 point review of systems is negative except for mentioned above Active Medications Acetaminophen (Acetaminophen Tab 325 Mg Tab) 650 mg PO Q6HR PRN PRN Reason: Mild Pain or Fever > 100.5 Albuterol Sulfate (Albuterol Nebulized 2.5 Mg/3 Ml) 2.5 mg INHALATION RT-Q4H PRN PRN Reason: Shortness Of Breath Albuterol/Ipratropium (Ipratropium-Albuterol 3 Ml Neb) 3 ml INHALATION RT-QID [facility] Last Admin: 06/21/21 12:05 Dose: 3 ml Documented by: Alprazolam (Alprazolam 0.5 Mg Tab) 0.5 mg PO TID PRN PRN Reason: Anxiety Last Admin: 06/21/21 10:24 Dose: 0.5 mg Documented by: Atorvastatin Calcium (Atorvastatin 20 Mg Tab) 20 mg PO DAILY [facility] Last Admin: 06/21/21 09:40 Dose: 20 mg Documented by: Azithromycin (Azithromycin 500 Mg Tab) 500 mg PO DAILY [facility]; Protocol Stop: 06/23/21 09:01 Last Admin: 06/21/21 14:09 Dose: 500 mg Documented by: Budesonide (Budesonide 0.5 Mg/2 Ml Nebu) 0.5 mg INHALATION RT-BID [facility] Diltiazem HCl (Diltiazem Cd 240 Mg Cap.Er.24h) 240 mg PO DAILY [facility] Last Admin: 06/21/21 10:24 Dose: 240 mg Documented by: Famotidine (Famotidine 20 Mg Tab) 20 mg PO BID [facility] Last Admin: 06/21/21 14:09 Dose: 20 mg Documented by: Sodium Chloride (Saline 0.9%) 1,000 mls @ 20 mls/hr IV .Q24H [facility] Last Admin: 06/21/21 03:07 Dose: Not Given Documented by: Lisinopril (Lisinopril 20 Mg Tab) 20 mg PO DAILY [facility] Last Admin: 06/21/21 09:39 Dose: 20 mg Documented by: Melatonin (Melatonin 3 Mg Tablet) 3 mg PO HS [facility] Montelukast Sodium (Montelukast 10 Mg Tab) 10 mg PO HS [facility] Multivitamins (Multivitamins, Thera 1 Each Tab) 1 each PO DAILY [facility] Last Admin: 06/21/21 09:40 Dose: Not Given Documented by: Naloxone HCl (Naloxone 0.4 Mg/Ml 1 Ml Vial) 0.2 mg IV Q2M PRN PRN Reason: Opioid Reversal Pantoprazole Sodium (Pantoprazole 40 Mg Tablet) 40 mg PO DAILY [facility] Last Admin: 06/21/21 09:40 Dose: 40 mg Documented by: Prednisone (Prednisone 20 Mg Tab) 40 mg PO DAILY [facility] Last Admin: 06/21/21 14:08 Dose: 40 mg Documented by: Sertraline HCl (Sertraline 100 Mg Tab) 200 mg PO DAILY [facility] Last Admin: 06/21/21 10:24 Dose: 200 mg Documented by: Physical exam: Gen: This is a 76-year-old female awake, alert and oriented 3, well-developed, well-nourished HEENT: Head is atraumatic, normocephalic. Pupils equal, round. Sclerae is anicteric. NECK: Supple. No JVD. No lymphadenopathy. No thyromegaly. LUNGS: Diminished breath sounds bilaterally with no wheezing or rhonchi noted. No intercostal retractions. HEART: Regular rate and rhythm. No murmur. ABDOMEN: Soft. Bowel sounds are present. No masses. No tenderness. EXTREMITIES: No pedal edema. No calf tenderness. NEUROLOGICAL: Patient is awake, alert and oriented x3. Cranial nerves 2 through 12 are grossly intact. Assessment: Shortness of breath secondary to COPD acute exacerbation Possible SIRS, present on admission with chest x-ray showing a mild left lower lobe pneumonia, suspicion was low and ruled out as pro-calcitonin is negative at 0.09 and patient is afebrile and white blood count is normal, most likely atelectasis Generalized weakness Gastroesophageal reflux disease Hyperlipidemia Hypertension Chronic hypoxic respiratory failure and wears 2 L of oxygen via nasal cannula Anxiety, depression GI prophylaxis DVT prophylaxis Full code Plan: Recommend continue with breathing inhalational treatments and will resume oral prednisone and Zithromax. Pro-calcitonin was negative at 0.09. Influenza, RSV, Covid is all negative and chest x-ray suggestive of left lower lobe pneumonia appears more like atelectasis. Patient also with generalized weakness and will have PT/OT evaluate the patient. Patient lives with family and reports that she will be returning home once discharged. Pulmonary Dr. Smith following as patient sees Dr. Gonzalez in the outpatient setting. We'll continue to monitor closely and also add incentive spirometer and encourage the patient use at least 10 times every hour while awake. Will add subcutaneous heparin and Pepcid for DVT and GI prophylaxis. The impression and plan of care has been dictated by Janell Luevano, Nurse Practitioner as directed. Dr. Mariely MD I have performed a history and examination and MDM of this patient, discussed the same with the dictator, and agree with the dictator's assessment and plan as written ,documented as a scribe. Based on total visit time, I have performed more than 50% of the visit. Past Medical History Past Medical History: Asthma, Chest Pain / Angina, COPD, GERD/Reflux, Hyperlipidemia, Hypertension, Pneumonia Additional Past Medical History / Comment(s): oxygen [place] @2L continuous, gallstones, pernicious anemia History of Any Multi-Drug Resistant Organisms: None Reported Past Surgical History: Hernia Repair, Joint Replacement, Orthopedic Surgery, Tonsillectomy Additional Past Surgical History / Comment(s): left elbow surgery, abscess in stomach area, abdominial scar tissue, tamie oophorectomy, left knee surgery, left hip replacement Past Anesthesia/Blood Transfusion Reactions: No Reported Reaction Past Psychological History: Anxiety, Depression Smoking Status: Former smoker Past Alcohol Use History: None Reported Additional Past Alcohol Use History / Comment(s): quit smoking 2008, smoked since age 18, 2 PPD Past Drug Use History: None Reported - Past Family History Mother Family Medical History: No Reported History Father Family Medical History: CVA/TIA, Myocardial Infarction ([place]) Medications and Allergies Home Medications Medication Instructions Recorded Confirmed Type Simvastatin [Zocor] 40 mg PO DAILY 02/20/15 06/20/21 History Diltiazem Cd [Cardizem CD] 240 mg PO DAILY 03/01/16 06/20/21 History Melatonin 3 mg PO HS 03/01/16 06/20/21 History Montelukast Sodium [Singulair] 10 mg PO HS 03/01/16 06/20/21 History [place]-3 Fatty Acids/Fish Oil [Fish 1 cap PO DAILY 03/01/16 06/20/21 History Oil 1,000 mg Softgel] flaxseed oiL [[place]-3 Flaxseed Oil] 1,000 mg PO DAILY 03/01/16 06/20/21 History Budesonide [Pulmicort] 0.5 mg INHALATION RT-BID 04/20/17 06/20/21 History ALPRAZolam [Xanax] 0.5 mg PO TID PRN #20 tab 04/25/17 06/20/21 Rx Albuterol Sulfate [Ventolin HFA] 2 puff INHALATION RT-Q4H PRN 06/20/21 06/20/21 History Ipratropium/Albuterol Sulfate 1 puff INHALATION RT-QID 06/20/21 06/20/21 History [Combivent Respimat Inhaler] Multivitamins, Thera [Multivitamin 1 tab PO DAILY 06/20/21 06/20/21 History (formulary)] Omeprazole 20 mg PO DAILY 06/20/21 06/20/21 History Sertraline [Zoloft] 200 mg PO DAILY 06/20/21 06/20/21 History lisinopriL [Zestril] 20 mg PO DAILY 06/20/21 06/20/21 History predniSONE See Taper PO DAILY 06/20/21 06/20/21 History Allergies Allergy/AdvReac Type Severity Reaction Status Date / Time No Known Allergies Allergy Verified 06/20/21 15:19 Physical Exam Vitals: Vital Signs Temp Pulse Pulse Resp BP BP Pulse Ox 06/21/21 07:12 97.7 F 79 120/78 96 06/21/21 01:38 16 06/21/21 01:23 98.0 F 78 19 127/72 96 06/21/21 00:32 64 16 106/60 95 06/20/21 22:22 97.7 F 70 14 100/62 95 06/20/21 19:43 71 06/20/21 19:39 74 12 106/69 96 06/20/21 19:33 70 06/20/21 17:16 98.3 F 86 18 121/72 95 Intake and Output 06/20/21 06/21/21 06/21/21 22:59 06:59 14:59 Intake Total 118 Balance 118 Intake: Oral 118 Other: Voiding Method Toilet # Voids 1 Weight 68.039 kg 68.039 kg Results CBC & Chem 7: 06/21/21 06:09 06/21/21 06:09 Thrombosis Risk Factor Assmnt - DVT/VTE Prophylaxis DVT/VTE Prophylaxis: Pharmacologic Prophylaxis ordered - Choose All That Apply Each Factor Represents 1 point: Abnormal pulmonary function (COPD), Obesity (BMI >25) Each Risk Factor Represents 2 Points: Age 61-74 years Thrombosis Risk Factor Assessment Total Risk Factor Score: 4 Thrombosis Risk Factor Assessment Level: Moderate Risk Assessment and Plan Time with Patient: Greater than 30
--- NOTE | 2021-06-21 17:16 | P.CNPUL ---
History of Present Illness Consult date: 06/21/21 Reason for consult: dyspnea, cough, hypoxemia Chief complaint: Shortness of breath for the duration History of present illness: Patient is a pleasant 76-year-old female who was seen evaluated examined in the medical floor, she has end-stage COPD which is oxygen dependent as well as the prednisone-dependent 10 mg, patient came into the hospital with 1 week history of increasing cough shortness of breath and not feeling well, patient has extensive history of smoking and nicotine use quit however in 2008, she has been on home oxygen and nebulizer therapy, she uses 2 L nasal cannula 18/09, a week ago she started having intermittent shortness of breath and cough came into hospital for further evaluation on specific questioning she denies any night sweats chills denies any hemoptysis, chest x-ray suggestive of developing left lower lobe infiltrate patient has been started on Zithromax and Rocephin labs reviewed RSV influenza and cold are all negative Review of Systems All systems: negative Past Medical History Past Medical History: Asthma, Chest Pain / Angina, COPD, GERD/Reflux, Hyperlipidemia, Hypertension, Pneumonia Additional Past Medical History / Comment(s): oxygen [place] @2L continuous, gallstones, pernicious anemia History of Any Multi-Drug Resistant Organisms: None Reported Past Surgical History: Hernia Repair, Joint Replacement, Orthopedic Surgery, Tonsillectomy Additional Past Surgical History / Comment(s): left elbow surgery, abscess in stomach area, abdominial scar tissue, tamie oophorectomy, left knee surgery, left hip replacement Past Anesthesia/Blood Transfusion Reactions: No Reported Reaction Past Psychological History: Anxiety, Depression Smoking Status: Former smoker Past Alcohol Use History: None Reported Additional Past Alcohol Use History / Comment(s): quit smoking 2008, smoked since age 18, 2 PPD Past Drug Use History: None Reported - Past Family History Mother Family Medical History: No Reported History Father Family Medical History: CVA/TIA, Myocardial Infarction ([place]) Medications and Allergies Home Medications Medication Instructions Recorded Confirmed Type Simvastatin [Zocor] 40 mg PO DAILY 02/20/15 06/20/21 History Diltiazem Cd [Cardizem CD] 240 mg PO DAILY 03/01/16 06/20/21 History Melatonin 3 mg PO HS 03/01/16 06/20/21 History Montelukast Sodium [Singulair] 10 mg PO HS 03/01/16 06/20/21 History [place]-3 Fatty Acids/Fish Oil [Fish 1 cap PO DAILY 03/01/16 06/20/21 History Oil 1,000 mg Softgel] flaxseed oiL [[place] Flaxseed Oil] 1,000 mg PO DAILY 03/01/16 06/20/21 History Budesonide [Pulmicort] 0.5 mg INHALATION RT-BID 04/20/17 06/20/21 History ALPRAZolam [Xanax] 0.5 mg PO TID PRN #20 tab 04/25/17 06/20/21 Rx Albuterol Sulfate [Ventolin HFA] 2 puff INHALATION RT-Q4H PRN 06/20/21 06/20/21 History Ipratropium/Albuterol Sulfate 1 puff INHALATION RT-QID 06/20/21 06/20/21 History [Combivent Respimat Inhaler] Multivitamins, Thera [Multivitamin 1 tab PO DAILY 06/20/21 06/20/21 History (formulary)] Omeprazole 20 mg PO DAILY 06/20/21 06/20/21 History Sertraline [Zoloft] 200 mg PO DAILY 06/20/21 06/20/21 History lisinopriL [Zestril] 20 mg PO DAILY 06/20/21 06/20/21 History predniSONE See Taper PO DAILY 06/20/21 06/20/21 History Allergies Allergy/AdvReac Type Severity Reaction Status Date / Time No Known Allergies Allergy Verified 06/20/21 15:19 Physical Exam Vitals: Vital Signs Temp Pulse Pulse Resp BP BP Pulse Ox 06/21/21 15:44 84 06/21/21 15:28 84 06/21/21 14:00 98.8 F 81 18 123/82 95 06/21/21 12:17 84 06/21/21 12:05 84 06/21/21 08:00 79 16 06/21/21 07:12 97.7 F 79 120/78 96 06/21/21 01:38 16 06/21/21 01:23 98.0 F 78 19 127/72 96 06/21/21 00:32 64 16 106/60 95 06/20/21 22:22 97.7 F 70 14 100/62 95 06/20/21 19:43 71 06/20/21 19:39 74 12 106/69 96 06/20/21 19:33 70 06/20/21 17:16 98.3 F 86 18 121/72 95 Intake and Output 06/21/21 06/21/21 06/21/21 06:59 14:59 22:59 Intake Total 418 Balance 418 Intake: Oral 418 Other: Voiding Method Toilet Toilet # Voids 1 Weight 68.039 kg - Constitutional General appearance: average body habitus, cooperative, disheveled - EENT Eyes: EOMI, PERRLA ENT: normal oropharynx Ears: bilateral: normal - Neck Neck: normal ROM Carotids: bilateral: upstroke normal Thyroid: bilateral: normal size - Respiratory Respiratory: bilateral: wheezing (Mild inspiratory expiratory wheezing and rhonchi) - Cardiovascular Rhythm: regular Heart sounds: normal: S1, S2 - Gastrointestinal General gastrointestinal: normal bowel sounds, soft - Integumentary Integumentary: normal turgor - Neurologic Neurologic: CNII-XII intact - Musculoskeletal Musculoskeletal: gait normal, generalized weakness, strength equal bilaterally - Psychiatric Psychiatric: A&O x's 3, appropriate affect, intact judgment & insight Results - Laboratory Findings CBC and BMP: 06/21/21 06:09 06/21/21 06:09 PT/INR, D-dimer PT 9.9 sec (9.0-12.0) 06/20/21 11:50 INR 0.9 (<1.2) 06/20/21 11:50 Abnormal lab findings: Abnormal Labs 06/21/21 06/21/21 06:09 06:09 MCHC 30.5 L Lymphocytes # 0.69 L Eosinophils # 0 L Carbon Dioxide 27.9 H Creatinine 0.4 L BUN/Creatinine Ratio 37.25 H Glucose 155 H Total Bilirubin 0.20 L AST 11 L Alkaline Phosphatase 36 L Total Protein 5.5 L Albumin 3.5 L - Diagnostic Findings Chest x-ray: report reviewed, image reviewed (Finding as noted above) Assessment and Plan Assessment: Left lower lobe pneumonia Acute on chronic hypoxic respiratory failure End-stage oxygen-dependent prednisone-dependent COPD Hypertension hypertensive cardiovascular disease Dyslipidemia Generalized anxiety disorder Remote history of extensive smoking and nicotine use Plan: Continue broad-spectrum antibiotics, oral steroids and breathing treatments Increase activity as tolerated Continue deep breathing sense incentive spirometry Continue home medication Further plan of care as per clinical response of patient Time with Patient: Greater than 30
[2021-06-21] MEDS: BUDESONIDE 0.5 MG/2 ML NEBU INHALATION SCH (19:54)
[2021-06-21] MEDS: MELATONIN 3 MG TABLET PO SCH (20:29)
[2021-06-21] MEDS: HEPARIN SODIUM,PORCINE/PF 5,000 UNIT/0.5 ML SYRINGE SQ SCH (20:29)
[2021-06-21] MEDS: MONTELUKAST 10 MG TAB PO SCH (20:29)
[2021-06-22 07:26] LABS: Glucose,Whole Blood 117 mg/dL (75-99)
[2021-06-22] MEDS: IPRATROPIUM-ALBUTEROL 3 ML NEB INHALATION SCH ×4 (07:35→19:37)
[2021-06-22] MEDS: BUDESONIDE 0.5 MG/2 ML NEBU INHALATION SCH ×2 (07:35→19:38)
[2021-06-22] MEDS: INSULIN ASPART (NovoLOG) 100 UNIT/ML VIAL SQ SCH ×4 (08:20→22:02)
[2021-06-22] MEDS: ATORVASTATIN 20 MG TAB PO SCH (08:23)
[2021-06-22] MEDS: AZITHROMYCIN 500 MG TAB PO SCH (08:23)
[2021-06-22] MEDS: HEPARIN SODIUM,PORCINE/PF 5,000 UNIT/0.5 ML SYRINGE SQ SCH ×2 (08:23→19:31)
[2021-06-22] MEDS: FAMOTIDINE 20 MG TAB PO SCH ×2 (08:24→19:31)
[2021-06-22] MEDS: DILTIAZEM CD 240 MG CAP.ER.24H PO SCH (08:24)
[2021-06-22] MEDS: predniSONE 20 MG TAB PO SCH (08:25)
[2021-06-22] MEDS: PANTOPRAZOLE 40 MG TABLET PO SCH (08:25)
[2021-06-22] MEDS: MULTIVITAMINS, THERA 1 EACH TAB PO SCH (08:25)
[2021-06-22] MEDS: lisinopriL 20 MG TAB PO SCH (08:25)
[2021-06-22] MEDS: SERTRALINE 100 MG TAB PO SCH (08:25)
[2021-06-22] MEDS: ALPRAZolam 0.5 MG TAB PO PRN ×2 (08:31→22:03)
[2021-06-22] MEDS: methylPREDNISolone SOD SUCCI 125 MG/2 ML VIAL IV SCH ×2 (11:07→17:06)
[2021-06-22 11:42] LABS: Glucose,Whole Blood 111 mg/dL (75-99)
--- NOTE | 2021-06-22 14:59 | P.PN ---
Subjective Progress Note Date: 06/22/21 This is a very pleasant 76-year-old female who was recently admitted with increasing shortness of breath and COPD acute exacerbation. Patient presented to the emergency department with increasing shortness of breath that started last week and also patient noticed a decrease in appetite along with productive cough and developed a fever. Patient was afebrile on ED admission. Patient does have an extensive past medical history of COPD, asthma, angina, acid reflux, hyperlipidemia, hypertension, chronically wears 2 L of oxygen via nasal cannula at home, gallstones and pernicious anemia, anxiety, depression, former smoker and reports to quitting back in 2008. Patient reports to using inhalers along with nebulized treatments and also reports that she had been using her rescue inhaler more frequently with no relief. On admission to the ER chest x- ray shows a mild left lower lobe pneumonia which appears new to previous exam and patient was given a dose of Zithromax along with ceftriaxone. Patient reports her chronically taking prednisone 10 mg daily. Patient's pulmonary doctor is Dr. Carlos Smith has been consulted. Patient admitting labs reveal a WBC within normal limits at 7.8, hemoglobin 12.7, sodium is 139, potassium 4.6, BUN 14.9, creatinine 0.4, magnesium 2.2 with influenza, RSV, Covid all negative. Patient was admitted for COPD exacerbation and will have pulmonary evaluate the patient. 06/22/2021 Patient is seen and evaluated this morning with no acute overnight issues noted. Patient continues with dyspnea and shortness of breath and is continued on her chronic 2 L via nasal cannula. Patient with some tightness and diminished lung volumes and was on oral prednisone and we'll transition to IV steroids and also initiate sliding scale with Accu-Cheks before meals and at bedtime to monitor blood sugars closely. Patient is continued on breathing inhalational treatments with pulmonary following and also continues on oral Zithromax and will continue. Patient continues with not much of an appetite although is eating with each meal and encouraged oral intake. Discussed with the patient and encouraged increase activity as tolerated as well. Patient is currently afebrile and denies any worsening shortness of breath, chest pain, or palpitations. Active Medications Acetaminophen (Acetaminophen Tab 325 Mg Tab) 650 mg PO Q6HR PRN PRN Reason: Mild Pain or Fever > 100.5 Albuterol Sulfate (Albuterol Nebulized 2.5 Mg/3 Ml) 2.5 mg INHALATION RT-Q4H PRN PRN Reason: Shortness Of Breath Albuterol/Ipratropium (Ipratropium-Albuterol 3 Ml Neb) 3 ml INHALATION RT-QID [facility] Last Admin: 06/22/21 11:08 Dose: 3 ml Documented by: Alprazolam (Alprazolam 0.5 Mg Tab) 0.5 mg PO TID PRN PRN Reason: Anxiety Last Admin: 06/22/21 08:31 Dose: 0.5 mg Documented by: Atorvastatin Calcium (Atorvastatin 20 Mg Tab) 20 mg PO DAILY [facility] Last Admin: 06/22/21 08:23 Dose: 20 mg Documented by: Azithromycin (Azithromycin 500 Mg Tab) 500 mg PO DAILY [facility]; Protocol Stop: 06/23/21 09:01 Last Admin: 06/22/21 08:23 Dose: 500 mg Documented by: Budesonide (Budesonide 0.5 Mg/2 Ml Nebu) 0.5 mg INHALATION RT-BID [facility] Last Admin: 06/22/21 07:35 Dose: 0.5 mg Documented by: Diltiazem HCl (Diltiazem Cd 240 Mg Cap.Er.24h) 240 mg PO DAILY [facility] Last Admin: 06/22/21 08:24 Dose: 240 mg Documented by: Famotidine (Famotidine 20 Mg Tab) 20 mg PO BID [facility] Last Admin: 06/22/21 08:24 Dose: 20 mg Documented by: Heparin Sodium (Porcine) (Heparin Sodium,Porcine/Pf 5,000 Unit/0.5 Ml Syringe) 5,000 unit SQ Q12HR [facility] Last Admin: 06/22/21 08:23 Dose: 5,000 unit Documented by: Sodium Chloride (Saline 0.9%) 1,000 mls @ 20 mls/hr IV .Q24H [facility] Last Admin: 06/21/21 17:17 Dose: Not Given Documented by: Insulin Aspart (Insulin Aspart (Novolog) 100 Unit/Ml Vial) 0 unit SQ ACHS [facility]; Protocol Last Admin: 06/22/21 12:11 Dose: Not Given Documented by: Lisinopril (Lisinopril 20 Mg Tab) 20 mg PO DAILY [facility] Last Admin: 06/22/21 08:25 Dose: 20 mg Documented by: Melatonin (Melatonin 3 Mg Tablet) 3 mg PO HS [facility] Last Admin: 06/21/21 20:29 Dose: 3 mg Documented by: Methylprednisolone Sodium Succinate (Methylprednisolone Sod Succi 125 Mg/2 Ml Vial) 60 mg IV Q6HR [facility] Last Admin: 06/22/21 11:07 Dose: 60 mg Documented by: Montelukast Sodium (Montelukast 10 Mg Tab) 10 mg PO HS [facility] Last Admin: 06/21/21 20:29 Dose: 10 mg Documented by: Multivitamins (Multivitamins, Thera 1 Each Tab) 1 each PO DAILY [facility] Last Admin: 06/22/21 08:25 Dose: Not Given Documented by: Naloxone HCl (Naloxone 0.4 Mg/Ml 1 Ml Vial) 0.2 mg IV Q2M PRN PRN Reason: Opioid Reversal Pantoprazole Sodium (Pantoprazole 40 Mg Tablet) 40 mg PO DAILY [facility] Last Admin: 06/22/21 08:25 Dose: 40 mg Documented by: Sertraline HCl (Sertraline 100 Mg Tab) 200 mg PO DAILY [facility] Last Admin: 06/22/21 08:25 Dose: 200 mg Documented by: Physical exam: Gen: This is a 76-year-old female awake, alert and oriented 3, well-developed, well-nourished HEENT: Head is atraumatic, normocephalic. Pupils equal, round. Sclerae is an icteric. NECK: Supple. No JVD. No lymphadenopathy. No thyromegaly. LUNGS: Diminished breath sounds bilaterally with no wheezing or rhonchi noted. Decreased air entry bilaterally. No intercostal retractions. HEART: Regular rate and rhythm. No murmur. ABDOMEN: Soft. Bowel sounds are present. No masses. No tenderness. EXTREMITIES: No pedal edema. No calf tenderness. NEUROLOGICAL: Patient is awake, alert and oriented x3. Cranial nerves 2 through 12 are grossly intact. Assessment: Shortness of breath secondary to COPD acute exacerbation Possible SIRS, present on admission with chest x-ray showing a mild left lower lobe pneumonia, suspicion was low and ruled out as pro-calcitonin is negative at 0.09 and patient is afebrile and white blood count is normal, most likely atelectasis Generalized weakness Gastroesophageal reflux disease Hyperlipidemia Hypertension Chronic hypoxic respiratory failure and wears 2 L of oxygen via nasal cannula Anxiety, depression GI prophylaxis DVT prophylaxis Full code Plan: Recommend to continue with breathing inhalational treatments and will continue oral Zithromax. Will initiate IV steroids as patient continues with diminished air entry bilaterally and tightness with inspiration. Pro-calcitonin was negative at 0.09. Influenza, RSV, Covid is all negative. Patient also with generalized weakness and will have PT/OT evaluate the patient. Patient lives with family and reports that she will be returning home once discharged. Pulmonary Dr. Smith following as patient sees Dr. Gonzalez in the outpatient setting. We'll continue to monitor closely and also add incentive spirometer and encourage the patient use at least 10 times every hour while awake. Recommend continue with GI and DVT prophylaxis and have encouraged oral intake. Patient reports to not much of an appetite but is eating with each meal. The impression and plan of care has been dictated by Janell Luevano, Nurse Practitioner as directed. Dr. Gatito MD I have performed a history and examination and MDM of this patient, discussed the same with the dictator, and agree with the dictator's assessment and plan as written ,documented as a scribe. Based on total visit time, I have performed more than 50% of the visit. Objective - Vital Signs Vital signs: Vital Signs Temp 97.4 F L 06/22/21 07:50 Pulse 87 06/22/21 07:52 Resp 16 06/22/21 07:50 BP 116/75 06/22/21 07:50 Pulse Ox 93 L 06/22/21 07:50 Intake & Output 06/21/21 06/22/21 06/22/21 18:59 06:59 18:59 Intake Total 536 118 Balance 536 118 Intake: Oral 536 118 Other: Voiding Method Toilet Toilet Toilet # Voids 1 1 # Bowel Movements 1 - Labs CBC & Chem 7: 06/21/21 06:09 06/21/21 06:09 Labs: Abnormal Lab Results - Last 24 Hours (Table) 06/21/21 06/21/21 06/22/21 Range/Units 06:09 06:09 07:24 MCHC 30.5 L (32.0-37.0) g/dL Lymphocytes # 0.69 L (0.90-5.00) X 10*3/uL Eosinophils # 0 L (0.04-0.35) X 10*3/uL Carbon Dioxide 27.9 H (20.0-27.5) mmol/L Creatinine 0.4 L (0.6-1.5) mg/dL BUN/Creatinine Ratio 37.25 H (12.00-20.00) Ratio Glucose 155 H (70-110) mg/dL POC Glucose (mg/dL) 117 H (75-99) mg/dL Total Bilirubin 0.20 L (0.30-1.20) mg/dL AST 11 L (13-35) U/L Alkaline Phosphatase 36 L (41-126) U/L Total Protein 5.5 L (6.2-8.2) g/dL Albumin 3.5 L (3.8-4.9) g/dL Microbiology - Last 24 Hours (Table) 06/20/21 11:50 Blood Culture - Preliminary Blood No Growth after 24 hours 06/20/21 11:50 Blood Culture - Preliminary Blood No Growth after 24 hours
[2021-06-22 17:11] LABS: Glucose,Whole Blood 149 mg/dL (75-99)
--- NOTE | 2021-06-22 17:51 | P.PN ---
Subjective Progress Note Date: 06/22/21 Principal diagnosis: Left lower lobe pneumonia Acute on chronic hypoxic respiratory failure End-stage oxygen-dependent prednisone-dependent COPD Hypertension hypertensive cardiovascular disease Dyslipidemia Generalized anxiety disorder Remote history of extensive smoking and nicotine use 06/22/2021, patient seen and evaluated examined this morning, respiratory status slightly better less wheezing and congestion is present, denies any chest pain, breathing comfortably, remains on IV steroids breathing treatments and IV antibiotics tolerating well, also on sliding scale insulin for hyperglycemia associated with steroids Patient is a pleasant 76-year-old female who was seen evaluated examined in the medical floor, she has end-stage COPD which is oxygen dependent as well as the prednisone-dependent 10 mg, patient came into the hospital with 1 week history of increasing cough shortness of breath and not feeling well, patient has extensive history of smoking and nicotine use quit however in 2008, she has been on home oxygen and nebulizer therapy, she uses 2 L nasal cannula 18/09, a week ago she started having intermittent shortness of breath and cough came into hospital for further evaluation on specific questioning she denies any night sweats chills denies any hemoptysis, chest x-ray suggestive of developing left lower lobe infiltrate patient has been started on Zithromax and Rocephin labs reviewed RSV influenza and cold are all negative Objective - Vital Signs Vital signs: Vital Signs Temp 98.1 F 06/22/21 14:00 Pulse 87 06/22/21 15:44 Resp 16 06/22/21 14:00 BP 112/66 06/22/21 14:00 Pulse Ox 96 06/22/21 15:34 Intake & Output 06/21/21 06/22/21 06/22/21 18:59 06:59 18:59 Intake Total 536 236 Balance 536 236 Intake: Oral 536 236 Other: Voiding Method Toilet Toilet Toilet # Voids 1 1 1 # Bowel Movements 1 1 - Exam - Constitutional General appearance: average body habitus, cooperative, disheveled - EENT Eyes: EOMI, PERRLA ENT: normal oropharynx Ears: bilateral: normal - Neck Neck: normal ROM Carotids: bilateral: upstroke normal Thyroid: bilateral: normal size - Respiratory Respiratory: bilateral: wheezing (Mild inspiratory expiratory wheezing and rhonchi) - Cardiovascular Rhythm: regular Heart sounds: normal: S1, S2 - Gastrointestinal General gastrointestinal: normal bowel sounds, soft - Integumentary Integumentary: normal turgor - Neurologic Neurologic: CNII-XII intact - Musculoskeletal Musculoskeletal: gait normal, generalized weakness, strength equal bilaterally - Psychiatric Psychiatric: A&O x's 3, appropriate affect, intact judgment & insight - Labs CBC & Chem 7: 06/21/21 06:09 06/21/21 06:09 Labs: Abnormal Lab Results - Last 24 Hours (Table) 06/22/21 06/22/21 06/22/21 Range/Units 07:24 11:40 17:09 POC Glucose (mg/dL) 117 H 111 H 149 H (75-99) mg/dL Microbiology - Last 24 Hours (Table) 06/20/21 11:50 Blood Culture - Preliminary Blood No Growth after 48 hours 06/20/21 11:50 Blood Culture - Preliminary Blood No Growth after 48 hours Assessment and Plan Assessment: Left lower lobe pneumonia Acute on chronic hypoxic respiratory failure End-stage oxygen-dependent prednisone-dependent COPD Hypertension hypertensive cardiovascular disease Dyslipidemia Generalized anxiety disorder Remote history of extensive smoking and nicotine use Plan: Continue broad-spectrum antibiotics, IV steroids and breathing treatments Increase activity as tolerated Continue deep breathing sense incentive spirometry Continue home medication Further plan of care as per clinical response of patient Time with Patient: Greater than 30
[2021-06-22] MEDS: SODIUM CHLORIDE 0.9% 1,000 ML IV SCH (18:05)
[2021-06-22] MEDS: MONTELUKAST 10 MG TAB PO SCH (19:31)
[2021-06-22 20:38] LABS: Glucose,Whole Blood 219 mg/dL (75-99)
[2021-06-22] MEDS: MELATONIN 3 MG TABLET PO SCH (22:03)
[2021-06-23] MEDS: methylPREDNISolone SOD SUCCI 125 MG/2 ML VIAL IV SCH ×5 (00:20→23:58)
[2021-06-23 07:23] LABS: Glucose,Whole Blood 142 mg/dL (75-99)
[2021-06-23] MEDS: ATORVASTATIN 20 MG TAB PO SCH (08:23)
[2021-06-23] MEDS: IPRATROPIUM-ALBUTEROL 3 ML NEB INHALATION SCH ×4 (08:29→19:27)
[2021-06-23] MEDS: BUDESONIDE 0.5 MG/2 ML NEBU INHALATION SCH ×2 (08:29→19:27)
[2021-06-23] MEDS: INSULIN ASPART (NovoLOG) 100 UNIT/ML VIAL SQ SCH ×4 (09:08→21:26)
[2021-06-23] MEDS: AZITHROMYCIN 500 MG TAB PO SCH (09:09)
[2021-06-23] MEDS: PANTOPRAZOLE 40 MG TABLET PO SCH (09:09)
[2021-06-23] MEDS: FAMOTIDINE 20 MG TAB PO SCH ×2 (09:09→21:26)
[2021-06-23] MEDS: SERTRALINE 100 MG TAB PO SCH (09:09)
[2021-06-23] MEDS: lisinopriL 20 MG TAB PO SCH (09:09)
[2021-06-23] MEDS: DILTIAZEM CD 240 MG CAP.ER.24H PO SCH (09:09)
[2021-06-23] MEDS: MULTIVITAMINS, THERA 1 EACH TAB PO SCH (09:09)
[2021-06-23] MEDS: HEPARIN SODIUM,PORCINE/PF 5,000 UNIT/0.5 ML SYRINGE SQ SCH ×2 (09:12→21:26)
--- NOTE | 2021-06-23 09:14 | XR ---
EXAMINATION TYPE: XR chest 1V DATE OF EXAM: 06/23/2021 CLINICAL HISTORY: Difficulty breathing. History of cough and asthma. TECHNIQUE: Single AP portable upright view of the chest is obtained. COMPARISON: Chest x-ray from 3 days earlier and older studies. FINDINGS: Chronic parenchymal changes bilaterally with persistent left basilar opacity. Stable mild cardiomegaly. Right lung remains clear. Osseous structures are demineralized. IMPRESSION: Chronic changes with stable left basilar opacity could reflect persistent acute infiltrat e and/or atelectasis. No new infiltrate is seen.
[2021-06-23 12:02] LABS: Glucose,Whole Blood 139 mg/dL (75-99)
--- NOTE | 2021-06-23 12:20 | P.PN ---
Subjective Progress Note Date: 06/23/21 This is a very pleasant 76-year-old female who was recently admitted with increasing shortness of breath and COPD acute exacerbation. Patient presented to the emergency department with increasing shortness of breath that started last week and also patient noticed a decrease in appetite along with productive cough and developed a fever. Patient was afebrile on ED admission. Patient does have an extensive past medical history of COPD, asthma, angina, acid reflux, hyperlipidemia, hypertension, chronically wears 2 L of oxygen via nasal cannula at home, gallstones and pernicious anemia, anxiety, depression, former smoker and reports to quitting back in 2008. Patient reports to using inhalers along with nebulized treatments and also reports that she had been using her rescue inhaler more frequently with no relief. On admission to the ER chest x- ray shows a mild left lower lobe pneumonia which appears new to previous exam and patient was given a dose of Zithromax along with ceftriaxone. Patient reports her chronically taking prednisone 10 mg daily. Patient's pulmonary doctor is Dr. Carlos Smith has been consulted. Patient admitting labs reveal a WBC within normal limits at 7.8, hemoglobin 12.7, sodium is 139, potassium 4.6, BUN 14.9, creatinine 0.4, magnesium 2.2 with influenza, RSV, Covid all negative. Patient was admitted for COPD exacerbation and will have pulmonary evaluate the patient. 06/22/2021 Patient is seen and evaluated this morning with no acute overnight issues noted. Patient continues with dyspnea and shortness of breath and is continued on her chronic 2 L via nasal cannula. Patient with some tightness and diminished lung volumes and was on oral prednisone and we'll transition to IV steroids and also initiate sliding scale with Accu-Cheks before meals and at bedtime to monitor blood sugars closely. Patient is continued on breathing inhalational treatments with pulmonary following and also continues on oral Zithromax and will continue. Patient continues with not much of an appetite although is eating with each meal and encouraged oral intake. Discussed with the patient and encouraged increase activity as tolerated as well. Patient is currently afebrile and denies any worsening shortness of breath, chest pain, or palpitations. 06/23/2021 Patient is seen this morning and currently maintained on breathing inhalational treatments along with IV steroids and will continue. Pulmonary Dr. Smith is following and patient also continues on oral Zithromax and will continue today to complete the course. Patient remains afebrile. Patient continues with some dyspnea with exertion and generalized weakness and is working with physical therapy. Patient also continues on 2 L via nasal cannula which is chronic for her and will continue. Patient with some mildly elevated blood sugars most likely steroid induced and will continue with sliding scale and Accu-Cheks before meals and at bedtime. Encouraged oral intake and increased activity as tolerated. Patient currently denies chest pain or palpitations. Patient denies any nausea or vomiting and is tolerating diet. Active Medications Acetaminophen (Acetaminophen Tab 325 Mg Tab) 650 mg PO Q6HR PRN PRN Reason: Mild Pain or Fever > 100.5 Albuterol Sulfate (Albuterol Nebulized 2.5 Mg/3 Ml) 2.5 mg INHALATION RT-Q4H PRN PRN Reason: Shortness Of Breath Albuterol/Ipratropium (Ipratropium-Albuterol 3 Ml Neb) 3 ml INHALATION RT-QID [facility] Last Admin: 06/23/21 11:57 Dose: 3 ml Documented by: Alprazolam (Alprazolam 0.5 Mg Tab) 0.5 mg PO TID PRN PRN Reason: Anxiety Last Admin: 06/22/21 22:03 Dose: 0.5 mg Documented by: Atorvastatin Calcium (Atorvastatin 20 Mg Tab) 20 mg PO DAILY [facility] Last Admin: 06/23/21 08:23 Dose: 20 mg Documented by: Budesonide (Budesonide 0.5 Mg/2 Ml Nebu) 0.5 mg INHALATION RT-BID [facility] Last Admin: 06/23/21 08:29 Dose: 0.5 mg Documented by: Diltiazem HCl (Diltiazem Cd 240 Mg Cap.Er.24h) 240 mg PO DAILY [facility] Last Admin: 06/23/21 09:09 Dose: 240 mg Documented by: Famotidine (Famotidine 20 Mg Tab) 20 mg PO BID [facility] Last Admin: 06/23/21 09:09 Dose: 20 mg Documented by: Heparin Sodium (Porcine) (Heparin Sodium,Porcine/Pf 5,000 Unit/0.5 Ml Syringe) 5,000 unit SQ Q12HR [facility] Last Admin: 06/23/21 09:12 Dose: 5,000 unit Documented by: Sodium Chloride (Saline 0.9%) 1,000 mls @ 20 mls/hr IV .Q24H [facility] Last Admin: 06/22/21 18:05 Dose: 20 mls/hr Documented by: Insulin Aspart (Insulin Aspart (Novolog) 100 Unit/Ml Vial) 0 unit SQ ACHS [facility]; Protocol Last Admin: 06/23/21 09:08 Dose: 1 unit Documented by: Lisinopril (Lisinopril 20 Mg Tab) 20 mg PO DAILY [facility] Last Admin: 06/23/21 09:09 Dose: 20 mg Documented by: Melatonin (Melatonin 3 Mg Tablet) 3 mg PO HS [facility] Last Admin: 06/22/21 22:03 Dose: 3 mg Documented by: Methylprednisolone Sodium Succinate (Methylprednisolone Sod Succi 125 Mg/2 Ml Vial) 60 mg IV Q6HR [facility] Last Admin: 06/23/21 05:27 Dose: 60 mg Documented by: Montelukast Sodium (Montelukast 10 Mg Tab) 10 mg PO HS [facility] Last Admin: 06/22/21 19:31 Dose: 10 mg Documented by: Multivitamins (Multivitamins, Thera 1 Each Tab) 1 each PO DAILY [facility] Last Admin: 06/23/21 09:09 Dose: 1 each Documented by: Naloxone HCl (Naloxone 0.4 Mg/Ml 1 Ml Vial) 0.2 mg IV Q2M PRN PRN Reason: Opioid Reversal Pantoprazole Sodium (Pantoprazole 40 Mg Tablet) 40 mg PO DAILY [facility] Last Admin: 06/23/21 09:09 Dose: 40 mg Documented by: Sertraline HCl (Sertraline 100 Mg Tab) 200 mg PO DAILY [facility] Last Admin: 06/23/21 09:09 Dose: 200 mg Documented by: Physical exam: Gen: This is a 76-year-old female awake, alert and oriented 3, well-developed, well-nourished HEENT: Head is atraumatic, normocephalic. Pupils equal, round. Sclerae is anicteric. NECK: Supple. No JVD. No lymphadenopathy. No thyromegaly. LUNGS: Diminished breath sounds bilaterally with no wheezing or rhonchi noted. Decreased air entry bilaterally although somewhat improved from yesterday. No intercostal retractions. HEART: Regular rate and rhythm. No murmur. ABDOMEN: Soft. Bowel sounds are present. No masses. No tenderness. EXTREMITIES: No pedal edema. No calf tenderness. NEUROLOGICAL: Patient is awake, alert and oriented x3. Cranial nerves 2 through 12 are grossly intact. Assessment: Shortness of breath secondary to COPD acute exacerbation Possible SIRS, present on admission with chest x-ray showing a mild left lower lobe pneumonia, suspicion was low and ruled out as pro-calcitonin is negative at 0.09 and patient is afebrile and white blood count is normal, most likely atelectasis Generalized weakness Hyperglycemia, steroid-induced Gastroesophageal reflux disease Hyperlipidemia Hypertension Chronic hypoxic respiratory failure and wears 2 L of oxygen via nasal cannula Anxiety, depression GI prophylaxis DVT prophylaxis Full code Plan: Recommend to continue with breathing inhalational treatments and will continue oral Zithromax. Patient completed her last dose of Zithromax today. Recommend continue with IV steroids for another 24 hours as patient feels somewhat improved and her chest tightness and inspiration and will continue to monitor Accu-Cheks before meals and at bedtime and continue with sliding scale as needed as the blood sugars have been mildly elevated most likely secondary to steroids. Pro-calcitonin was negative at 0.09. Influenza, RSV, Covid is all negative. Patient also with generalized weakness and working with PT/OT . Patient lives with family and reports that she will be returning home once discharged. Pulmonary Dr. Smith following. Patient will follow with her cardiopulmonary technologist chief Dr. Gonzalez in the outpatient setting upon discharge. We'll continue to monitor closely and encouraged incentive spirometer use at least 10 times every hour while awake. Recommend continue with GI and DVT prophylaxis and have encouraged oral intake. Patient reports to a mild improvement in oral intake. The impression and plan of care has been dictated by Janell Luevano, Nurse Practitioner as directed. Dr. Gatito MD I have performed a history and examination and MDM of this patient, discussed the same with the dictator, and agree with the dictator's assessment and plan as written ,documented as a scribe. Based on total visit time, I have performed more than 50% of the visit. Objective - Vital Signs Vital signs: Vital Signs Temp 98.1 F 06/23/21 07:46 Pulse 76 06/23/21 08:41 Resp 18 06/23/21 07:46 BP 175/77 06/23/21 07:46 Pulse Ox 92 L 06/23/21 07:46 Intake & Output 06/22/21 06/23/21 06/23/21 18:59 06:59 18:59 Intake Total 473 Balance 473 Intake: Oral 473 Other: Voiding Method Toilet # Voids 1 1 1 # Bowel Movements 1 - Labs CBC & Chem 7: 06/21/21 06:09 06/21/21 06:09 Labs: Abnormal Lab Results - Last 24 Hours (Table) 06/22/21 06/22/21 06/22/21 Range/Units 11:40 17:09 20:37 POC Glucose (mg/dL) 111 H 149 H 219 H (75-99) mg/dL 06/23/21 Range/Units 07:21 POC Glucose (mg/dL) 142 H (75-99) mg/dL Microbiology - Last 24 Hours (Table) 06/20/21 11:50 Blood Culture - Preliminary Blood No Growth after 48 hours 06/20/21 11:50 Blood Culture - Preliminary Blood No Growth after 48 hours
--- NOTE | 2021-06-23 14:30 | P.PN ---
Subjective Progress Note Date: 06/23/21 Principal diagnosis: Left lower lobe pneumonia Acute on chronic hypoxic respiratory failure End-stage oxygen-dependent prednisone-dependent COPD Hypertension hypertensive cardiovascular disease Dyslipidemia Generalized anxiety disorder Remote history of extensive smoking and nicotine use 06/23/2021, patient seen eval examined during the rounds labs reviewed medications reviewed care plan discussed, patient is still have intermittent wheezing cough shortness of breath, remains on supplemental oxygen remains on the antibiotics IV steroids breathing treatments supplemental oxygen, blood cultures 2 negative, primary services have discontinued the antibiotics, chest x-ray from earlier today reviewed left sided basal opacity infiltrate versus atelectasis will get computed tomography scan of the chest without contrast given that patient has a significant history of smoking and nicotine use and also it will clarify the issues about pneumonia 06/22/2021, patient seen and evaluated examined this morning, respiratory status slightly better less wheezing and congestion is present, denies any chest pain, breathing comfortably, remains on IV steroids breathing treatments and IV antibiotics tolerating well, also on sliding scale insulin for hyperglycemia associated with steroids Patient is a pleasant 76-year-old female who was seen evaluated examined in the medical floor, she has end-stage COPD which is oxygen dependent as well as the prednisone-dependent 10 mg, patient came into the hospital with 1 week history of increasing cough shortness of breath and not feeling well, patient has extensive history of smoking and nicotine use quit however in 2008, she has been on home oxygen and nebulizer therapy, she uses 2 L nasal cannula 18/09, a week ago she started having intermittent shortness of breath and cough came into hospital for further evaluation on specific questioning she denies any night sweats chills denies any hemoptysis, chest x-ray suggestive of developing left lower lobe infiltrate patient has been started on Zithromax and Rocephin labs reviewed RSV influenza and cold are all negative Objective - Vital Signs Vital signs: Vital Signs Temp 98.1 F 06/23/21 07:46 Pulse 76 06/23/21 12:07 Resp 20 06/23/21 08:00 BP 175/77 06/23/21 07:46 Pulse Ox 92 L 06/23/21 07:46 Intake & Output 06/22/21 06/23/21 06/23/21 18:59 06:59 18:59 Intake Total 473 236 Balance 473 236 Intake: Oral 473 236 Other: Voiding Method Toilet # Voids 1 1 1 # Bowel Movements 1 - Exam - Constitutional General appearance: average body habitus, cooperative, disheveled - EENT Eyes: EOMI, PERRLA ENT: normal oropharynx Ears: bilateral: normal - Neck Neck: normal ROM Carotids: bilateral: upstroke normal Thyroid: bilateral: normal size - Respiratory Respiratory: bilateral: wheezing (Mild inspiratory expiratory wheezing and rhonchi) - Cardiovascular Rhythm: regular Heart sounds: normal: S1, S2 - Gastrointestinal General gastrointestinal: normal bowel sounds, soft - Integumentary Integumentary: normal turgor - Neurologic Neurologic: CNII-XII intact - Musculoskeletal Musculoskeletal: gait normal, generalized weakness, strength equal bilaterally - Psychiatric Psychiatric: A&O x's 3, appropriate affect, intact judgment & insight - Labs CBC & Chem 7: 06/21/21 06:09 06/21/21 06:09 Labs: Abnormal Lab Results - Last 24 Hours (Table) 06/22/21 06/22/21 06/23/21 Range/Units 17:09 20:37 07:21 POC Glucose (mg/dL) 149 H 219 H 142 H (75-99) mg/dL 06/23/21 Range/Units 12:00 POC Glucose (mg/dL) 139 H (75-99) mg/dL Microbiology - Last 24 Hours (Table) 06/20/21 11:50 Blood Culture - Preliminary Blood No Growth after 72 hours 06/20/21 11:50 Blood Culture - Preliminary Blood No Growth after 72 hours Assessment and Plan Assessment: Left lower lobe pneumonia versus atelectasis Acute on chronic hypoxic respiratory failure End-stage oxygen-dependent prednisone-dependent COPD Hypertension hypertensive cardiovascular disease Dyslipidemia Generalized anxiety disorder Remote history of extensive smoking and nicotine use Plan: Computed tomography scan of his chest without IV contrast Observe off of broad-spectrum antibiotics, continue IV steroids and breathing treatments Increase activity as tolerated Continue deep breathing sense incentive spirometry Continue home medication Further plan of care as per clinical response of patient Time with Patient: Greater than 30
--- NOTE | 2021-06-23 16:55 | CT ---
EXAMINATION TYPE: CT chest wo con DATE OF EXAM: 06/23/2021 COMPARISON: CT chest June 20, 2016 HISTORY: LLL atelectasis. Hx asthma, COPD CT DLP: 467 mGycm. Automated Exposure Control for Dose Reduction was Utilized. TECHNIQUE: CT scan of the thorax is performed without IV contrast. FINDINGS: LUNGS: Mild to moderate underlying emphysematous change is redemonstrated. Occasional small scattered calcified nodule or benign granuloma right middle lobe axial image 33 and left lower lobe posteriorl y axial images 39 through 50 redemonstrated. Focal left basilar posterior pleural based scarring or s carlike atelectasis axial image 42 is now present likely accounting for chest x-ray abnormality. This measures approximately 1.9 x 0.5 cm. I would advise follow-up CT in 6-12 months time to ensure no sp iculated nodule. Position and CT appearance is unlikely. There is additional mild linear scarring in both bases. No pleural effusion or pneumothorax is seen. No suspicious focal consolidation. MEDIASTINUM: Lack of IV contrast is noted to limit evaluation for mediastinal and especially hilar ad enopathy. There are no definitive greater than 1 cm hilar or mediastinal lymph nodes. No cardiomega ly or pericardial effusion is seen. At least moderate coronary artery calcification is redemonstrated . Prominent pulmonary arteries suggesting Pulmonary artery hypertension are again seen. OTHER: Dependent small calcified gallstones redemonstrated. IMPRESSION: Posterior left lower lobe linear scarring and/or atelectasis is confirmed. No suspicious acute pulmonary process.
[2021-06-23 17:11] LABS: Glucose,Whole Blood 159 mg/dL (75-99)
[2021-06-23] MEDS: SODIUM CHLORIDE 0.9% 1,000 ML IV SCH (17:56)
[2021-06-23 21:10] LABS: Glucose,Whole Blood 169 mg/dL (75-99)
[2021-06-23] MEDS: MELATONIN 3 MG TABLET PO SCH (21:27)
[2021-06-23] MEDS: MONTELUKAST 10 MG TAB PO SCH (21:27)
[2021-06-24] MEDS: methylPREDNISolone SOD SUCCI 125 MG/2 ML VIAL IV SCH ×4 (05:20→23:27)
[2021-06-24 07:09] LABS: Glucose,Whole Blood 132 mg/dL (75-99)
[2021-06-24] MEDS: BUDESONIDE 0.5 MG/2 ML NEBU INHALATION SCH ×2 (07:54→19:41)
[2021-06-24] MEDS: IPRATROPIUM-ALBUTEROL 3 ML NEB INHALATION SCH ×4 (07:54→19:41)
[2021-06-24] MEDS: INSULIN ASPART (NovoLOG) 100 UNIT/ML VIAL SQ SCH ×4 (08:00→21:32)
[2021-06-24] MEDS: lisinopriL 20 MG TAB PO SCH (08:01)
[2021-06-24] MEDS: HEPARIN SODIUM,PORCINE/PF 5,000 UNIT/0.5 ML SYRINGE SQ SCH ×2 (08:01→21:33)
[2021-06-24] MEDS: MULTIVITAMINS, THERA 1 EACH TAB PO SCH ×2 (08:01→08:06)
[2021-06-24] MEDS: SERTRALINE 100 MG TAB PO SCH (08:01)
[2021-06-24] MEDS: ATORVASTATIN 20 MG TAB PO SCH (08:02)
[2021-06-24] MEDS: DILTIAZEM CD 240 MG CAP.ER.24H PO SCH (08:02)
[2021-06-24] MEDS: PANTOPRAZOLE 40 MG TABLET PO SCH (08:02)
[2021-06-24] MEDS: FAMOTIDINE 20 MG TAB PO SCH ×2 (08:02→20:31)
[2021-06-24] MEDS: ALPRAZolam 0.5 MG TAB PO PRN ×2 (08:38→21:33)
--- NOTE | 2021-06-24 11:20 | P.PN ---
Subjective Progress Note Date: 06/24/21 Principal diagnosis: Left lower lobe pneumonia Acute on chronic hypoxic respiratory failure End-stage oxygen-dependent prednisone-dependent COPD Hypertension hypertensive cardiovascular disease Dyslipidemia Generalized anxiety disorder Remote history of extensive smoking and nicotine use 06/25/2019, patient seen eval examined during the rounds labs reviewed medications reviewed today slightly better in terms of breathing cuff congestion and wheezing, respiratory status continued to improve compared to yesterday, patient remains on IV steroids reading treatments and off of antibiotics, computed tomography scan of the chest without contrast reviewed left lower lobe chronic scarring is present resembles atelectasis, patient instructed to continue deep breathing exercises incentive spirometry as per recommendation would recommend repeating computed tomography scan in another 6 months to a year, given stable respiratory status IV steroids can be changed to by mouth would recommend discharge and follow-up with primary air transportation provider 06/23/2021, patient seen eval examined during the rounds labs reviewed medications reviewed care plan discussed, patient is still have intermittent wheezing cough shortness of breath, remains on supplemental oxygen remains on the antibiotics IV steroids breathing treatments supplemental oxygen, blood cultures 2 negative, primary services have discontinued the antibiotics, chest x-ray from earlier today reviewed left sided basal opacity infiltrate versus atelectasis will get computed tomography scan of the chest without contrast given that patient has a significant history of smoking and nicotine use and also it will clarify the issues about pneumonia 06/22/2021, patient seen and evaluated examined this morning, respiratory status slightly better less wheezing and congestion is present, denies any chest pain, breathing comfortably, remains on IV steroids breathing treatments and IV antibiotics tolerating well, also on sliding scale insulin for hyperglycemia associated with steroids Patient is a pleasant 76-year-old female who was seen evaluated examined in the medical floor, she has end-stage COPD which is oxygen dependent as well as the prednisone-dependent 10 mg, patient came into the hospital with 1 week history of increasing cough shortness of breath and not feeling well, patient has extensive history of smoking and nicotine use quit however in 2008, she has been on home oxygen and nebulizer therapy, she uses 2 L nasal cannula 18/09, a week ago she started having intermittent shortness of breath and cough came into hospital for further evaluation on specific questioning she denies any night sweats chills denies any hemoptysis, chest x-ray suggestive of developing left lower lobe infiltrate patient has been started on Zithromax and Rocephin labs reviewed RSV influenza and cold are all negative Objective - Vital Signs Vital signs: Vital Signs Temp 98.3 F 06/24/21 07:15 Pulse 76 06/24/21 08:07 Resp 18 06/24/21 08:00 BP 174/83 06/24/21 07:15 Pulse Ox 96 06/24/21 07:54 Intake & Output 06/23/21 06/24/21 06/24/21 18:59 06:59 18:59 Intake Total 354 Balance 354 Intake: Oral 354 Other: Voiding Method Toilet Toilet # Voids 1 1 - Exam - Constitutional General appearance: average body habitus, cooperative, disheveled - EENT Eyes: EOMI, PERRLA ENT: normal oropharynx Ears: bilateral: normal - Neck Neck: normal ROM Carotids: bilateral: upstroke normal Thyroid: bilateral: normal size - Respiratory Respiratory: bilateral: wheezing (Mild inspiratory expiratory wheezing and rhonc hi) - Cardiovascular Rhythm: regular Heart sounds: normal: S1, S2 - Gastrointestinal General gastrointestinal: normal bowel sounds, soft - Integumentary Integumentary: normal turgor - Neurologic Neurologic: CNII-XII intact - Musculoskeletal Musculoskeletal: gait normal, generalized weakness, strength equal bilaterally - Psychiatric Psychiatric: A&O x's 3, appropriate affect, intact judgment & insight - Labs CBC & Chem 7: 06/21/21 06:09 06/21/21 06:09 Labs: Abnormal Lab Results - Last 24 Hours (Table) 06/23/21 06/23/21 06/23/21 Range/Units 12:00 17:09 21:09 POC Glucose (mg/dL) 139 H 159 H 169 H (75-99) mg/dL 06/24/21 Range/Units 07:08 POC Glucose (mg/dL) 132 H (75-99) mg/dL Microbiology - Last 24 Hours (Table) 06/20/21 11:50 Blood Culture - Preliminary Blood No Growth after 72 hours 06/20/21 11:50 Blood Culture - Preliminary Blood No Growth after 72 hours Assessment and Plan Assessment: Left lower lobe scarlike atelectasis atelectasis Acute on chronic hypoxic respiratory failure Acute COPD exacerbation End-stage oxygen-dependent prednisone-dependent COPD Hypertension hypertensive cardiovascular disease Dyslipidemia Generalized anxiety disorder Remote history of extensive smoking and nicotine use Plan: Computed tomography scan of her chest without IV contrast findings reviewed with the patient at length Observe off of broad-spectrum antibiotics, continue IV steroids and breathing treatments, IV steroids can be changed to by mouth Increase activity as tolerated Continue deep breathing sense incentive spirometry Continue home medication Follow-up with primary air transportation provider and repeat computed tomography scan in 6 months to year Further plan of care as per clinical response of patient Time with Patient: Greater than 30
[2021-06-24 12:13] LABS: Glucose,Whole Blood 115 mg/dL (75-99)
--- NOTE | 2021-06-24 13:55 | P.PN ---
Subjective This is a very pleasant 76-year-old female who was recently admitted with increasing shortness of breath and COPD acute exacerbation. Patient presented to the emergency department with increasing shortness of breath that started last week and also patient noticed a decrease in appetite along with productive cough and developed a fever. Patient was afebrile on ED admission. Patient does have an extensive past medical history of COPD, asthma, angina, acid reflux, hyperlipidemia, hypertension, chronically wears 2 L of oxygen via nasal cannula at home, gallstones and pernicious anemia, anxiety, depression, former smoker and reports to quitting back in 2008. Patient reports to using inhalers along with nebulized treatments and also reports that she had been using her rescue inhaler more frequently with no relief. On admission to the ER chest x- ray shows a mild left lower lobe pneumonia which appears new to previous exam and patient was given a dose of Zithromax along with ceftriaxone. Patient reports her chronically taking prednisone 10 mg daily. Patient's pulmonary doctor is Dr. Carlos Smith has been consulted. Patient admitting labs reveal a WBC within normal limits at 7.8, hemoglobin 12.7, sodium is 139, potassium 4.6, BUN 14.9, creatinine 0.4, magnesium 2.2 with influenza, RSV, Covid all negative. Patient was admitted for COPD exacerbation and will have pulmonary evaluate the patient. 06/22/2021 Patient is seen and evaluated this morning with no acute overnight issues noted. Patient continues with dyspnea and shortness of breath and is continued on her chronic 2 L via nasal cannula. Patient with some tightness and diminished lung volumes and was on oral prednisone and we'll transition to IV steroids and also initiate sliding scale with Accu-Cheks before meals and at bedtime to monitor blood sugars closely. Patient is continued on breathing inhalational treatments with pulmonary following and also continues on oral Zithromax and will continue. Patient continues with not much of an appetite although is eating with each meal and encouraged oral intake. Discussed with the patient and encouraged increase activity as tolerated as well. Patient is currently afebrile and denies any worsening shortness of breath, chest pain, or palpitations. 06/23/2021 Patient is seen this morning and currently maintained on breathing inhalational treatments along with IV steroids and will continue. Pulmonary Dr. Smith is following and patient also continues on oral Zithromax and will continue today to complete the course. Patient remains afebrile. Patient continues with some dyspnea with exertion and generalized weakness and is working with physical therapy. Patient also continues on 2 L via nasal cannula which is chronic for her and will continue. Patient with some mildly elevated blood sugars most li sherry steroid induced and will continue with sliding scale and Accu-Cheks before meals and at bedtime. Encouraged oral intake and increased activity as tolerated. Patient currently denies chest pain or palpitations. Patient denies any nausea or vomiting and is tolerating diet. 06/24/2021 Patient improving slowly. When asked the patient she states she does not feel she is ready to go home today. She still have limited air entry in both lungs that She remains on IV Solu-Medrol and oral Zithromax. CAT scan of the chest showed atelectasis with his current no acute process. Possible discharge in 24-48 hours once cleared by pulmonary team Objective - Vital Signs Vital signs: Vital Signs Temp 98.3 F 06/24/21 07:15 Pulse 76 06/24/21 08:07 Resp 18 06/24/21 08:00 BP 174/83 06/24/21 07:15 Pulse Ox 96 06/24/21 07:54 Intake & Output 06/23/21 06/24/21 06/24/21 18:59 06:59 18:59 Intake Total 354 Balance 354 Intake: Oral 354 Other: Voiding Method Toilet Toilet # Voids 1 1 - Exam Gen: This is a 76-year-old female awake, alert and oriented 3, well-developed, well-nourished HEENT: Head is atraumatic, normocephalic. Pupils equal, round. Sclerae is anicteric. NECK: Supple. No JVD. No lymphadenopathy. No thyromegaly. LUNGS: Diminished breath sounds bilaterally with no wheezing or rhonchi noted. Decreased air entry bilaterally. No intercostal retractions. HEART: Regular rate and rhythm. No murmur. ABDOMEN: Soft. Bowel sounds are present. No masses. No tenderness. EXTREMITIES: No pedal edema. No calf tenderness. NEUROLOGICAL: Patient is awake, alert and oriented x3. Cranial nerves 2 through 12 are grossly intact. - Labs CBC & Chem 7: 06/21/21 06:09 06/21/21 06:09 Labs: Abnormal Lab Results - Last 24 Hours (Table) 06/23/21 06/23/21 06/23/21 Range/Units 12:00 17:09 21:09 POC Glucose (mg/dL) 139 H 159 H 169 H (75-99) mg/dL 06/24/21 Range/Units 07:08 POC Glucose (mg/dL) 132 H (75-99) mg/dL Microbiology - Last 24 Hours (Table) 06/20/21 11:50 Blood Culture - Preliminary Blood No Growth after 72 hours 06/20/21 11:50 Blood Culture - Preliminary Blood No Growth after 72 hours Assessment and Plan Assessment: Shortness of breath secondary to COPD acute exacerbation Possible SIRS, present on admission with chest x-ray showing a mild left lower lobe pneumonia, suspicion was low and ruled out as pro-calcitonin is negative at 0.09 and patient is afebrile and white blood count is normal, most likely atelectasis Generalized weakness Hyperglycemia, steroid-induced Gastroesophageal reflux disease Hyperlipidemia Hypertension Chronic hypoxic respiratory failure and wears 2 L of oxygen via nasal cannula Anxiety, depression Plan: This is a pleasant 76 years old female who presents with COPD exacerbation Continue with IV steroids Continue with Zithromax Pulmonary team of the case Labs and medication were reviewed.. Continue same treatment. Continue with symptomatic treatment. Resume home medication. Monitor lytes and vitals. DVT and GI prophylaxis. Further recommendationsas per clinical course of the patient DVT prophylaxis: Subcutaneous heparin GI Prophylaxis: Pepcid Possible discharge in 24-48 hours if she keeps improving
[2021-06-24 17:00] LABS: Glucose,Whole Blood 143 mg/dL (75-99)
[2021-06-24] MEDS: SODIUM CHLORIDE 0.9% 1,000 ML IV SCH (17:59)
[2021-06-24] MEDS: MONTELUKAST 10 MG TAB PO SCH (20:31)
[2021-06-24 21:05] LABS: Glucose,Whole Blood 199 mg/dL (75-99)
[2021-06-24] MEDS: MELATONIN 3 MG TABLET PO SCH (21:33)
[2021-06-25] MEDS: methylPREDNISolone SOD SUCCI 125 MG/2 ML VIAL IV SCH ×4 (05:40→23:58)
[2021-06-25 07:11] LABS: Glucose,Whole Blood 144 mg/dL (75-99)
[2021-06-25] MEDS: BUDESONIDE 0.5 MG/2 ML NEBU INHALATION SCH ×2 (07:34→19:12)
[2021-06-25] MEDS: IPRATROPIUM-ALBUTEROL 3 ML NEB INHALATION SCH ×4 (07:34→19:12)
[2021-06-25] MEDS: ALPRAZolam 0.5 MG TAB PO PRN ×2 (09:51→21:55)
[2021-06-25] MEDS: INSULIN ASPART (NovoLOG) 100 UNIT/ML VIAL SQ SCH ×4 (09:51→21:54)
[2021-06-25] MEDS: DILTIAZEM CD 240 MG CAP.ER.24H PO SCH (09:52)
[2021-06-25] MEDS: ATORVASTATIN 20 MG TAB PO SCH (09:52)
[2021-06-25] MEDS: SERTRALINE 100 MG TAB PO SCH (09:52)
[2021-06-25] MEDS: FAMOTIDINE 20 MG TAB PO SCH ×2 (09:52→21:56)
[2021-06-25] MEDS: HEPARIN SODIUM,PORCINE/PF 5,000 UNIT/0.5 ML SYRINGE SQ SCH ×2 (09:53→21:54)
[2021-06-25] MEDS: MULTIVITAMINS, THERA 1 EACH TAB PO SCH (09:53)
[2021-06-25] MEDS: PANTOPRAZOLE 40 MG TABLET PO SCH (09:58)
[2021-06-25] MEDS: lisinopriL 20 MG TAB PO SCH (09:58)
--- NOTE | 2021-06-25 10:02 | P.PN ---
Subjective Progress Note Date: 06/25/21 Principal diagnosis: Left lower lobe pneumonia Acute on chronic hypoxic respiratory failure End-stage oxygen-dependent prednisone-dependent COPD Hypertension hypertensive cardiovascular disease Dyslipidemia Generalized anxiety disorder Remote history of extensive smoking and nicotine use 06/25/2021, patient seen and evaluated examined during the rounds labs reviewed medications reviewed care plan discussed, respiratory status significantly improved less cough congestion shortness breath is present able to get him an overall on 2 L oxygen, patient remains on IV steroids and breathing treatments being monitored off of antibiotics I have reviewed the computed tomography scan finding with her, with neck CT to be performed in 6 months to a year, patient to follow with the her primary service station attendant Dr. ALESSANDRO escalante and outpatient basis 06/24/2021, patient seen eval examined during the rounds labs reviewed medications reviewed today slightly better in terms of breathing cuff congestion and wheezing, respiratory status continued to improve compared to yesterday, patient remains on IV steroids reading treatments and off of antibiotics, computed tomography scan of the chest without contrast reviewed left lower lobe chronic scarring is present resembles atelectasis, patient instructed to continue deep breathing exercises incentive spirometry as per recommendation wo uld recommend repeating computed tomography scan in another 6 months to a year, given stable respiratory status IV steroids can be changed to by mouth would recommend discharge and follow-up with primary service station attendant 06/23/2021, patient seen eval examined during the rounds labs reviewed medications reviewed care plan discussed, patient is still have intermittent wheezing cough shortness of breath, remains on supplemental oxygen remains on the antibiotics IV steroids breathing treatments supplemental oxygen, blood cultures 2 negative, primary services have discontinued the antibiotics, chest x-ray from earlier today reviewed left sided basal opacity infiltrate versus atelectasis will get computed tomography scan of the chest without contrast given that patient has a significant history of smoking and nicotine use and also it will clarify the issues about pneumonia 06/22/2021, patient seen and evaluated examined this morning, respiratory status slightly better less wheezing and congestion is present, denies any chest pain, breathing comfortably, remains on IV steroids breathing treatments and IV antibiotics tolerating well, also on sliding scale insulin for hyperglycemia associated with steroids Patient is a pleasant 76-year-old female who was seen evaluated examined in the medical floor, she has end-stage COPD which is oxygen dependent as well as the prednisone-dependent 10 mg, patient came into the hospital with 1 week history of increasing cough shortness of breath and not feeling well, patient has extensive history of smoking and nicotine use quit however in 2008, she has been on home oxygen and nebulizer therapy, she uses 2 L nasal cannula 18/09, a week ago she started having intermittent shortness of breath and cough came into hospital for further evaluation on specific questioning she denies any night sweats chills denies any hemoptysis, chest x-ray suggestive of developing left lower lobe infiltrate patient has been started on Zithromax and Rocephin labs r eviewed RSV influenza and cold are all negative Objective - Vital Signs Vital signs: Vital Signs Temp 98.3 F 06/25/21 07:27 Pulse 75 06/25/21 07:46 Resp 18 06/25/21 07:27 BP 144/80 06/25/21 07:27 Pulse Ox 97 06/25/21 07:34 Intake & Output 06/24/21 06/25/21 06/25/21 18:59 06:59 18:59 Intake Total 118 180 Balance 118 180 Intake: Oral 118 180 Other: Voiding Method Toilet Toilet # Voids 1 2 # Bowel Movements 1 - Exam - Constitutional General appearance: average body habitus, cooperative, disheveled - EENT Eyes: EOMI, PERRLA ENT: normal oropharynx Ears: bilateral: normal - Neck Neck: normal ROM Carotids: bilateral: upstroke normal Thyroid: bilateral: normal size - Respiratory Respiratory: bilateral: wheezing (Mild inspiratory expiratory wheezing and rhonchi) - Cardiovascular Rhythm: regular Heart sounds: normal: S1, S2 - Gastrointestinal General gastrointestinal: normal bowel sounds, soft - Integumentary Integumentary: normal turgor - Neurologic Neurologic: CNII-XII intact - Musculoskeletal Musculoskeletal: gait normal, generalized weakness, strength equal bilaterally - Psychiatric Psychiatric: A&O x's 3, appropriate affect, intact judgment & insight - Labs CBC & Chem 7: 06/21/21 06:09 06/21/21 06:09 Labs: Abnormal Lab Results - Last 24 Hours (Table) 06/24/21 06/24/21 06/24/21 Range/Units 12:12 16:59 21:03 POC Glucose (mg/dL) 115 H 143 H 199 H (75-99) mg/dL 06/25/21 Range/Units 07:10 POC Glucose (mg/dL) 144 H (75-99) mg/dL Microbiology - Last 24 Hours (Table) 06/20/21 11:50 Blood Culture - Preliminary Blood No Growth after 96 hours 06/20/21 11:50 Blood Culture - Preliminary Blood No Growth after 96 hours Assessment and Plan Assessment: Left lower lobe scarlike atelectasis atelectasis Acute on chronic hypoxic respiratory failure Acute COPD exacerbation End-stage oxygen-dependent prednisone-dependent COPD Hypertension hypertensive cardiovascular disease Dyslipidemia Generalized anxiety disorder Remote history of extensive smoking and nicotine use Plan: Computed tomography scan of her chest without IV contrast findings reviewed with the patient at length Observe off of broad-spectrum antibiotics, continue IV steroids and breathing treatments, IV steroids can be changed to by mouth Increase activity as tolerated Continue deep breathing sense incentive spirometry Continue home medication Follow-up with primary service station attendant and repeat computed tomography scan in 6 months to year Further plan of care as per clinical response of patient Time with Patient: Greater than 30
[2021-06-25 12:26] LABS: Glucose,Whole Blood 114 mg/dL (75-99)
[2021-06-25 17:12] LABS: Glucose,Whole Blood 146 mg/dL (75-99)
--- NOTE | 2021-06-25 19:19 | P.PN ---
Subjective This is a very pleasant 76-year-old female who was recently admitted with increasing shortness of breath and COPD acute exacerbation. Patient presented to the emergency department with increasing shortness of breath that started last week and also patient noticed a decrease in appetite along with productive cough and developed a fever. Patient was afebrile on ED admission. Patient does have an extensive past medical history of COPD, asthma, angina, acid reflux, hyperlipidemia, hypertension, chronically wears 2 L of oxygen via nasal cannula at home, gallstones and pernicious anemia, anxiety, depression, former smoker and reports to quitting back in 2008. Patient reports to using inhalers along with nebulized treatments and also reports that she had been using her rescue inhaler more frequently with no relief. On admission to the ER chest x- ray shows a mild left lower lobe pneumonia which appears new to previous exam and patient was given a dose of Zithromax along with ceftriaxone. Patient reports her chronically taking prednisone 10 mg daily. Patient's pulmonary doctor is Dr. Carlos Smith has been consulted. Patient admitting labs reveal a WBC within normal limits at 7.8, hemoglobin 12.7, sodium is 139, potassium 4.6, BUN 14.9, creatinine 0.4, magnesium 2.2 with influenza, RSV, Covid all negative. Patient was admitted for COPD exacerbation and will have pulmonary evaluate the patient. 06/22/2021 Patient is seen and evaluated this morning with no acute overnight issues noted. Patient continues with dyspnea and shortness of breath and is continued on her chronic 2 L via nasal cannula. Patient with some tightness and diminished lung volumes and was on oral prednisone and we'll transition to IV steroids and also initiate sliding scale with Accu-Cheks before meals and at bedtime to monitor blood sugars closely. Patient is continued on breathing inhalational treatments with pulmonary following and also continues on oral Zithromax and will continue. Patient continues with not much of an appetite although is eating with each meal and encouraged oral intake. Discussed with the patient and encouraged increase activity as tolerated as well. Patient is currently afebrile and denies any worsening shortness of breath, chest pain, or palpitations. 06/23/2021 Patient is seen this morning and currently maintained on breathing inhalational treatments along with IV steroids and will continue. Pulmonary Dr. Smith is following and patient also continues on oral Zithromax and will continue today to complete the course. Patient remains afebrile. Patient continues with some dyspnea with exertion and generalized weakness and is working with physical therapy. Patient also continues on 2 L via nasal cannula which is chronic for her and will continue. Patient with some mildly elevated blood sugars most li sherry steroid induced and will continue with sliding scale and Accu-Cheks before meals and at bedtime. Encouraged oral intake and increased activity as tolerated. Patient currently denies chest pain or palpitations. Patient denies any nausea or vomiting and is tolerating diet. 06/24/2021 Patient improving slowly. When asked the patient she states she does not feel she is ready to go home today. She still have limited air entry in both lungs that She remains on IV Solu-Medrol and oral Zithromax. CAT scan of the chest showed atelectasis with his current no acute process. Possible discharge in 24-48 hours once cleared by pulmonary team 06/08/2021 Patient remains short of breath with limited air entry, she still have exertional dyspnea which is significant whenever even goes to the restroom. Patient still symptomatic and she does not feel she is ready to go to home today. Her saturation is 90s on 2 L oxygen via nasal cannula at rest. vitals and labs reviewed Continue with IV Solu-Medrol 60 mg, in my opinion she is not ready to switch her to oral prednisone yet Patient patient finish her course of Zithromax Objective - Vital Signs Vital signs: Vital Signs Temp 98.3 F 06/25/21 07:27 Pulse 76 06/25/21 11:39 Resp 18 06/25/21 07:27 BP 144/80 06/25/21 07:27 Pulse Ox 97 06/25/21 07:34 Intake & Output 06/24/21 06/25/21 06/25/21 18:59 06:59 18:59 Intake Total 118 180 Balance 118 180 Intake: Oral 118 180 Other: Voiding Method Toilet Toilet # Voids 1 2 # Bowel Movements 1 - Exam Gen: This is a 76-year-old female awake, alert and oriented 3, well-developed, well-nourished HEENT: Head is atraumatic, normocephalic. Pupils equal, round. Sclerae is anicteric. NECK: Supple. No JVD. No lymphadenopathy. No thyromegaly. LUNGS: Diminished breath sounds bilaterally with no wheezing or rhonchi noted. Decreased air entry bilaterally. No intercostal retractions. HEART: Regular rate and rhythm. No murmur. ABDOMEN: Soft. Bowel sounds are present. No masses. No tenderness. EXTREMITIES: No pedal edema. No calf tenderness. NEUROLOGICAL: Patient is awake, alert and oriented x3. Cranial nerves 2 through 12 are grossly intact. - Labs CBC & Chem 7: 06/21/21 06:09 06/21/21 06:09 Labs: Abnormal Lab Results - Last 24 Hours (Table) 06/24/21 06/24/21 06/25/21 Range/Units 16:59 21:03 07:10 POC Glucose (mg/dL) 143 H 199 H 144 H (75-99) mg/dL 06/25/21 Range/Units 12:25 POC Glucose (mg/dL) 114 H (75-99) mg/dL Microbiology - Last 24 Hours (Table) 06/20/21 11:50 Blood Culture - Preliminary Blood No Growth after 96 hours 06/20/21 11:50 Blood Culture - Preliminary Blood No Growth after 96 hours Assessment and Plan Assessment: Shortness of breath secondary to COPD acute exacerbation Possible SIRS, present on admission with chest x-ray showing a mild left lower lobe pneumonia, suspicion was low and ruled out as pro-calcitonin is negative at 0.09 and patient is afebrile and white blood count is normal, most likely atele ctasis Generalized weakness Hyperglycemia, steroid-induced Gastroesophageal reflux disease Hyperlipidemia Hypertension Chronic hypoxic respiratory failure and wears 2 L of oxygen via nasal cannula Anxiety, depression Plan: This is a pleasant 76 years old female who presents with COPD exacerbation Continue with IV steroids Patient finished her course of Zithromax Pulmonary team of the case Labs and medication were reviewed.. Continue same treatment. Continue with symptomatic treatment. Resume home medication. Monitor lytes and vitals. DVT and GI prophylaxis. Further recommendationsas per clinical course of the patient DVT prophylaxis: Subcutaneous heparin GI Prophylaxis: Pepcid Possible discharge in 24-48 hours if she keeps improving
[2021-06-25 21:17] LABS: Glucose,Whole Blood 160 mg/dL (75-99)
[2021-06-25] MEDS: MELATONIN 3 MG TABLET PO SCH (21:55)
[2021-06-25] MEDS: MONTELUKAST 10 MG TAB PO SCH (21:55)
[2021-06-26] MEDS: methylPREDNISolone SOD SUCCI 125 MG/2 ML VIAL IV SCH ×2 (05:27→13:27)
[2021-06-26 07:37] LABS: Glucose,Whole Blood 159 mg/dL (75-99)
[2021-06-26 08:08] VITALS: BP 137/89; RESP 16; TEMP 98
[2021-06-26] MEDS: IPRATROPIUM-ALBUTEROL 3 ML NEB INHALATION SCH ×2 (08:24→11:42)
[2021-06-26] MEDS: BUDESONIDE 0.5 MG/2 ML NEBU INHALATION SCH (08:24)
[2021-06-26] MEDS: HEPARIN SODIUM,PORCINE/PF 5,000 UNIT/0.5 ML SYRINGE SQ SCH (08:52)
[2021-06-26] MEDS: ALPRAZolam 0.5 MG TAB PO PRN (08:52)
[2021-06-26] MEDS: SERTRALINE 100 MG TAB PO SCH (08:52)
[2021-06-26] MEDS: ATORVASTATIN 20 MG TAB PO SCH (08:52)
[2021-06-26] MEDS: DILTIAZEM CD 240 MG CAP.ER.24H PO SCH (08:52)
[2021-06-26] MEDS: lisinopriL 20 MG TAB PO SCH (08:52)
[2021-06-26] MEDS: INSULIN ASPART (NovoLOG) 100 UNIT/ML VIAL SQ SCH ×2 (08:52→13:27)
[2021-06-26] MEDS: PANTOPRAZOLE 40 MG TABLET PO SCH (08:52)
[2021-06-26] MEDS: FAMOTIDINE 20 MG TAB PO SCH (08:52)
[2021-06-26 11:54] VITALS: PULSE 80
[2021-06-26 12:16] LABS: Glucose,Whole Blood 136 mg/dL (75-99)
[2021-06-26] MEDS: MULTIVITAMINS, THERA 1 EACH TAB PO SCH (12:54)
--- NOTE | 2021-06-28 13:54 | P.DS ---
Providers Date of admission: 06/20/21 17:18 Attending physician: Etelvina Vizcaino Consults: 06/20/21 17:21 Consult Physician Routine Consulting Provider: Ja Smith Consult Reason/Comments: dyspnea, copd exacerbation Do you want consulting provider notified?: Yes Primary care physician: Tory Gonzalez Hospital Course: Diagnoses: Shortness of breath secondary to COPD acute exacerbation Possible SIRS, present on admission with chest x-ray showing a mild left lower lobe pneumonia, suspicion was low and ruled out as pro-calcitonin is negative at 0.09 and patient is afebrile and white blood count is normal, most likely atelectasis Generalized weakness Hyperglycemia, steroid-induced Gastroesophageal reflux disease Hyperlipidemia Hypertension Chronic hypoxic respiratory failure and wears 2 L of oxygen via nasal cannula Anxiety, depression Hospital course: This is a very pleasant 76-year-old female who was recently admitted with increasing shortness of breath and COPD acute exacerbation. Patient presented to the emergency department with increasing shortness of breath that started last week and also patient noticed a decrease in appetite along with productive cough and developed a fever. Patient was afebrile on ED admission. Patient does have an extensive past medical history of COPD, asthma, angina, acid reflux, hyperlipidemia, hypertension, chronically wears 2 L of oxygen via nasal cannula at home, gallstones and pernicious anemia, anxiety, depression, former smoker and reports to quitting back in 2008. Patient reports to using inhalers along with nebulized treatments and also reports that she had been using her rescue inhaler more frequently with no relief. On admission to the ER chest x- ray shows a mild left lower lobe pneumonia which appears new to previous exam and patient was given a dose of Zithromax along with ceftriaxone. Pneumonia responded to treatment and patient finished her course of antibiotic. CAT scan from showing left lower lobe scarring/atelectasis, with no suspicion for acute pulmonary process. Patient responded to treatment partially however she showed significant improvement and patient agrees to be discharged and follow-up as an outpatient. Patient also was cleared for discharge by pulmonary service. Patient will be discharged on tapering dose of prednisone with recommendation for close outpatient follow-up. Problems and management plan were discussed with the patient and he verbalized understanding and acceptance Patient was found stable and can be discharged home however he needs follow-up as an outpatient. Patient was instructed to follow up with PCP Dr. 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 Gonazlez in one week and she agrees to call and make appointment as today is weakened Physical exam Gen: patient is a AAOx3, no distress CVS: S1-S2, RRR, no murmur - Lungs: B/L CTA, mild scattered bilateral wheezing. On nasal cannula Abdomen: soft, no distention, no tenderness, positive bowel sounds Extremity: no leg edema or induration Time spent more than 35 minutes Patient Condition at Discharge: Fair Plan - Discharge Summary New Discharge Prescriptions: New predniSONE 10 mg PO DIRECTED #40 tab Continue Simvastatin [Zocor] 40 mg PO DAILY Melatonin 3 mg PO HS [place]-3 Fatty Acids/Fish Oil [Fish Oil 1,000 mg Softgel] 1 cap PO DAILY flaxseed oiL [[place]-3 Flaxseed Oil] 1,000 mg PO DAILY Montelukast Sodium [Singulair] 10 mg PO HS Diltiazem Cd [Cardizem CD] 240 mg PO DAILY Budesonide [Pulmicort] 0.5 mg INHALATION RT-BID ALPRAZolam [Xanax] 0.5 mg PO TID PRN #20 tab PRN Reason: Anxiety Sertraline [Zoloft] 200 mg PO DAILY lisinopriL [Zestril] 20 mg PO DAILY Omeprazole 20 mg PO DAILY Albuterol Sulfate [Ventolin HFA] 2 puff INHALATION RT-Q4H PRN PRN Reason: Shortness Of Breath Ipratropium/Albuterol Sulfate [Combivent Respimat Inhaler] 1 puff INHALATION RT-QID Multivitamins, Thera [Multivitamin (formulary)] 1 tab PO DAILY Discontinued predniSONE See Taper PO DAILY Discharge Medication List Simvastatin [Zocor] 40 mg PO DAILY 02/20/15 [History] Diltiazem Cd [Cardizem CD] 240 mg PO DAILY 03/01/16 [History] Melatonin 3 mg PO HS 03/01/16 [History] Montelukast Sodium [Singulair] 10 mg PO HS 03/01/16 [History] [place]-3 Fatty Acids/Fish Oil [Fish Oil 1,000 mg Softgel] 1 cap PO DAILY 03/01/16 [History] flaxseed oiL [[place]-3 Flaxseed Oil] 1,000 mg PO DAILY 03/01/16 [History] Budesonide [Pulmicort] 0.5 mg INHALATION RT-BID 04/20/17 [History] ALPRAZolam [Xanax] 0.5 mg PO TID PRN #20 tab 04/25/17 [Rx] Albuterol Sulfate [Ventolin HFA] 2 puff INHALATION RT-Q4H PRN 06/20/21 [History] Ipratropium/Albuterol Sulfate [Combivent Respimat Inhaler] 1 puff INHALATION RT- QID 06/20/21 [History] Multivitamins, Thera [Multivitamin (formulary)] 1 tab PO DAILY 06/20/21 [History] Omeprazole 20 mg PO DAILY 06/20/21 [History] Sertraline [Zoloft] 200 mg PO DAILY 06/20/21 [History] lisinopriL [Zestril] 20 mg PO DAILY 06/20/21 [History] predniSONE 10 mg PO DIRECTED #40 tab 06/26/21 [Rx] Follow up Appointment(s)/Referral(s): Bhavik Gonzalez MD [Medical Doctor] - 1-2 days Nathanael Gonzalez MD [STAFF PHYSICIAN] - 1 Week Activity/Diet/Wound Care/Special Instructions: Low carbohydrate 1600 kcal per day Activity is restricted till you see your doctor Discharge Disposition: HOME SELF-CARE
== END 2021-06-26 14:51 | disposition home or self-care (01) | DRG 190 ==
LOC: EC 10:19 → 5NMEDONC 17:18 → 6NMEDSUR 23:54
PROVIDERS: ADMIT Hospitalist; ATTEND Hospitalist
DX: J44.1 Chronic obstructive pulmonary disease with (acute) exacerbation (principal); J96.21 Acute and chronic respiratory failure with hypoxia; J98.11 Atelectasis; I11.9 Hypertensive heart disease without heart failure; D51.0 Vitamin B12 deficiency anemia due to intrinsic factor deficiency; Z20.822 Contact with and (suspected) exposure to COVID-19; R73.9 Hyperglycemia, unspecified; T38.0X5A Adverse effect of glucocorticoids and synthetic analogues, initial encounter; E78.5 Hyperlipidemia, unspecified; F32.A Depression, unspecified; F41.1 Generalized anxiety disorder; K80.20 Calculus of gallbladder without cholecystitis without obstruction; K21.9 Gastro-esophageal reflux disease without esophagitis; Z99.81 Dependence on supplemental oxygen; Z79.51 Long term (current) use of inhaled steroids; Z79.52 Long term (current) use of systemic steroids; Z79.899 Other long term (current) drug therapy; Z87.01 Personal history of pneumonia (recurrent); Z87.19 Personal history of other diseases of the digestive system; Z90.89 Acquired absence of other organs; Z87.39 Personal history of other diseases of the musculoskeletal system and connective tissue; Z90.722 Acquired absence of ovaries, bilateral; Z87.42 Personal history of other diseases of the female genital tract; Z87.891 Personal history of nicotine dependence; Z96.642 Presence of left artificial hip joint; Z98.890 Other specified postprocedural states; Z82.3 Family history of stroke; Z82.49 Family history of ischemic heart disease and other diseases of the circulatory system
CPT/HCPCS: 36415; 71045; 71046; 71250; 80053; 83735; 84145; 85025; 85610; 85730; 87040; 87636; 94640; 94760; 96365; 96366; 96375; 99285

== ENCOUNTER 2021-07-05 16:54 | Emergency (ER) | payer MEDICARE, OTHER ==
[2021-07-05 17:05] VITALS: RESP 16; TEMP 99
--- NOTE | 2021-07-05 17:19 | ED ---
General Adult HPI - General Chief complaint: Fall Stated complaint: Fall Leg Pain Time Seen by Provider: 07/05/21 17:05 Source: patient, EMS, RN notes reviewed, old records reviewed Mode of arrival: ambulatory Limitations: no limitations - History of Present Illness Initial comments: 76-year-old female presents to the emergency room via EMS with complaints of falling this morning at 1:30 at home. Patient states that her oxygen tubing wrapped around her legs and when she stood up she tripped and fell on her left knee. She states that she had difficulty bearing weight but was able to pull herself up and get back into the bed. She states that she's been unable to put weight on it so family called EMS. Patient denies any hip pain, denies hitting her head, no LOC. She has no back pain or neck pain. She does not take any blood thinners. She is on 2 L of oxygen for COPD at home. -: hour(s) (14) Location: left, lower extremity (knee and lower leg) Severity scale (1-10): 3 Quality: aching Consistency: intermittent Improves with: immobilization Worsens with: movement, other (palpation) Associated Symptoms: denies other symptoms Treatments Prior to Arrival: other (fentanyl by EMS) - Related Data Home Medications Medication Instructions Recorded Confirmed Simvastatin [Zocor] 40 mg PO DAILY 02/20/15 07/05/21 Diltiazem Cd [Cardizem CD] 240 mg PO DAILY 03/01/16 07/05/21 Melatonin 3 mg PO HS 03/01/16 07/05/21 Montelukast Sodium [Singulair] 10 mg PO HS 03/01/16 07/05/21 [place]-3 Fatty Acids/Fish Oil [Fish 1 cap PO DAILY 03/01/16 07/05/21 Oil 1,000 mg Softgel] flaxseed oiL [[place]-3 Flaxseed Oil] 1,000 mg PO DAILY 03/01/16 07/05/21 Budesonide [Pulmicort] 0.5 mg INHALATION RT-BID 04/20/17 07/05/21 Albuterol Sulfate [Ventolin HFA] 2 puff INHALATION RT-Q4H PRN 06/20/21 07/05/21 Ipratropium/Albuterol Sulfate 1 puff INHALATION RT-QID 06/20/21 07/05/21 [Combivent Respimat Inhaler] Multivitamins, Thera [Multivitamin 1 tab PO DAILY 06/20/21 07/05/21 (formulary)] Omeprazole 20 mg PO DAILY 06/20/21 07/05/21 Sertraline [Zoloft] 200 mg PO DAILY 06/20/21 07/05/21 lisinopriL [Zestril] 20 mg PO DAILY 06/20/21 07/05/21 predniSONE See Taper PO DIRECTED 07/05/21 07/05/21 Previous Rx's Medication Instructions Recorded ALPRAZolam [Xanax] 0.5 mg PO TID PRN #20 tab 04/25/17 Allergies Allergy/AdvReac Type Severity Reaction Status Date / Time No Known Allergies Allergy Verified 07/05/21 17:00 Review of Systems ROS Statement: Those systems with pertinent positive or pertinent negative responses have been documented in the HPI. ROS Other: All systems not noted in ROS Statement are negative. Past Medical History Past Medical History: Asthma, Chest Pain / Angina, COPD, GERD/Reflux, Hyperlipidemia, Hypertension, Pneumonia Additional Past Medical History / Comment(s): oxygen [place] @2L continuous, gallstones, pernicious anemia History of Any Multi-Drug Resistant Organisms: None Reported Past Surgical History: Hernia Repair, Joint Replacement, Orthopedic Surgery, Tonsillectomy Additional Past Surgical History / Comment(s): left elbow surgery, abscess in stomach area, abdominial scar tissue, tamie oophorectomy, left knee surgery, left hip replacement Past Anesthesia/Blood Transfusion Reactions: No Reported Reaction Past Psychological History: Anxiety, Depression Smoking Status: Former smoker Past Alcohol Use History: None Reported Past Drug Use History: None Reported - Past Family History Mother Family Medical History: No Reported History Father Family Medical History: CVA/TIA, Myocardial Infarction ([place]) General Exam Limitations: no limitations General appearance: alert, in no apparent distress Head exam: Present: atraumatic, normocephalic, normal inspection Eye exam: Present: PERRL. Absent: scleral icterus, conjunctival injection Neck exam: Present: normal inspection, full ROM. Absent: tenderness, meningismus, lymphadenopathy Respiratory exam: Present: decreased breath sounds. Absent: respiratory distress, wheezes, accessory muscle use Cardiovascular Exam: Present: regular rate GI/Abdominal exam: Present: soft. Absent: distended, tenderness, guarding, rebound, rigid Right Forearm Wrist exam: Present: full ROM, ecchymosis. Absent: tenderness Left Hip exam: Present: pelvic stability. Absent: tenderness, swelling, crepitus, external rotation, internal rotation, shortening Upper Leg exam: Absent: tenderness, swelling Knee exam: Present: tenderness, swelling, ecchymosis, pain/laxity with valgus, pain/laxity with varus, full knee extension. Absent: full ROM, abrasion, laceration, erythema Lower Leg exam: Present: tenderness, swelling, ecchymosis (Ecchymosis from the knee to ankle). Absent: full ROM, abrasion, laceration, deformity, crepitus, dislocation Ankle exam: Present: tenderness, swelling Foot/Toe exam: Absent: swelling, calcaneal tenderness Neurovascular tendon exam: Present: no vascular compromise. Absent: abnormal cap refill, pallor, foot drop Right Lower Leg exam: Present: ecchymosis (proximal tib/fib) Ankle exam: Absent: tenderness Foot/Toe exam: Present: full ROM, ecchymosis (dorsum of foot ). Absent: tenderness, swelling, laceration, deformity Back exam: Present: normal inspection. Absent: tenderness, CVA tenderness (R), CVA tenderness (L), muscle spasm, paraspinal tenderness, vertebral tenderness, rash noted Neurological exam: Present: alert, oriented X3 Psychiatric exam: Present: normal affect, normal mood Skin exam: Present: warm, dry. Absent: cyanosis, diaphoretic, petechiae Course Vital Signs 07/05/21 16:55 Temperature 99 F Pulse Rate 86 Respiratory 16 Rate Blood Pressure 116/76 O2 Sat by Pulse 94 L Oximetry - Reevaluation(s) Reevaluation #1: 07/05/21 18:15 Spoke with orthopedics Elia Weiss at 1956. He spoke with Dr. Perkins at 1813 who recommended patient be transferred to [facility]. Time: 18:13 Medical Decision Making - Medical Decision Making Patient tripped and fell this morning at 0130. Ground level fall, states only has pain to left lower leg. No LOC, no blood thinners. Patient was given fentanyl by EMS with relief. X-ray of the left lower extremity shows an acute comminuted transverse proximal tibial metaphysis fracture. There is no dislocation of the knee joint, ankle joint is also intact. There is significant ecchymosis to left lower extremity. Patient is neurovascularly intact. Pelvis is stable. Patient has no low back pain. No C-spine tenderness, no head injury. Vital signs are stable. Patient is alert and oriented 4. I did speak with orthopedics who recommended patient be transferred to [facility]. Patient was accepted by Dr. Florian and Dr Wynne. Basic labs are pending. Patient is agreeable to transfer. Case discussed with Dr. Leonard. Disposition Clinical Impression: Fall, Fracture of proximal end of tibia Disposition: OTHER INSTITUTION NOT DEFINED Referrals: Tory Gonzalez MD [Primary Care Provider] - 1-2 days Decision Date: 07/05/21 Decision Time: 18:05 - Out of Hospital Transfer - Req. Specs Out of Hospital Transfer - Requested Specifics: Other Emergency Center ([facility]ly [facility])
--- NOTE | 2021-07-05 17:45 | XR ---
EXAMINATION TYPE: XR tibia fibula LT DATE OF EXAM: 07/05/2021 COMPARISON: NONE HISTORY: Leg pain TECHNIQUE: 3 views FINDINGS: There is comminuted transverse fracture of the proximal tibial metaphysis. No significant d isplacement. No dislocation at the knee joint. The fibula appears intact. Ankle joint is intact IMPRESSION: Acute comminuted transverse proximal tibial fracture.
--- NOTE | 2021-07-05 17:46 | XR ---
EXAMINATION TYPE: XR knee complete LT DATE OF EXAM: 07/05/2021 COMPARISON: NONE HISTORY: Leg pain TECHNIQUE: 2 views FINDINGS: There is acute transverse comminuted nondisplaced fracture of the proximal tibial metaphysi s. Knee joint shows no effusion. Patella is intact. The joint spaces are fairly normal. Proximal fibu la is intact. IMPRESSION: Acute proximal tibial transverse fracture.
--- NOTE | 2021-07-05 17:47 | XR ---
EXAMINATION TYPE: XR ankle complete LT DATE OF EXAM: 07/05/2021 COMPARISON: NONE HISTORY: Leg pain TECHNIQUE: 2 views FINDINGS: Ankle mortise is anatomic. There is mild plantar and Achilles calcaneal spurring. Joint spa tony are fairly normal. IMPRESSION: Calcaneal spurring. No fracture
[2021-07-05] MEDS ORDERED: fentaNYL (PF) 50 MCG/ML 2 ML AMP IVP STA (18:31)
[2021-07-05 18:45] LABS: Basophils % (A) 0 %; Eosinophils % (A) 0 %; HCT 35.5 % (34.0-46.0); HGB 10.9 gm/dL (11.4-16.0); Lymphocytes # (A) 0.7 k/uL (1.0-4.8); Lymphocytes % (A) 4 %; MCH 28.3 pg (25.0-35.0); MCHC 30.7 g/dL (31.0-37.0); MCV 92.3 fL (80.0-100.0); Mean Platelet Volume 7.2; Monocytes # (A) 0.5 k/uL (0-1.0); Monocytes % (A) 3 %; Neutrophils % (A) 93 %; Platelet Count 199 k/uL (150-450); RBC 3.84 m/uL (3.80-5.40); RDW 13.2 % (11.5-15.5); WBC 18.3 k/uL (3.8-10.6)
[2021-07-05 18:53] LABS: INR 0.9 (<1.2); Partial Thromboplastin Time 22.5 sec (22.0-30.0); Prothrombin Time 10.1 sec (9.0-12.0)
[2021-07-05 18:57] LABS: African American GFR (CKD) >90 (>60 ml/min/1.73 sqM); Anion Gap 1 mmol/L; Blood Urea Nitrogen 21 mg/dL (7-17); Carbon Dioxide 29 mmol/L (22-30); Chloride 103 mmol/L (98-107); Glucose 167 mg/dL (74-99); Non-African American GFR(CKD) 86 (>60 ml/min/1.73 sqM); Potassium 4.6 mmol/L (3.5-5.1); Sodium 133 mmol/L (137-145)
[2021-07-05 19:27] VITALS: BP 95/64; PULSE 94
== END 2021-07-05 20:18 | disposition other institution (70) ==
LOC: EC 16:54
DX: S89.092A Other physeal fracture of upper end of left tibia, initial encounter for closed fracture (principal); J44.9 Chronic obstructive pulmonary disease, unspecified; I10 Essential (primary) hypertension; K21.9 Gastro-esophageal reflux disease without esophagitis; E78.5 Hyperlipidemia, unspecified; Z79.899 Other long term (current) drug therapy; Z99.81 Dependence on supplemental oxygen; Z87.891 Personal history of nicotine dependence; Z79.51 Long term (current) use of inhaled steroids; W01.0XXA Fall on same level from slipping, tripping and stumbling without subsequent striking against object, initial encounter
CPT/HCPCS: 36415; 80048; 82553; 85025; 85610; 85730; 73590; 73562; 73610; 99285; 96374; J3010

== ENCOUNTER 2021-11-08 11:43 | Observation (INO) | payer MEDICARE, OTHER ==
[2021-11-08 12:26] LABS: Basophils # (A) 0.1 k/uL (0-0.2); Basophils % (A) 1 %; Eosinophils # (A) 0.2 k/uL (0-0.7); Eosinophils % (A) 3 %; HCT 41.6 % (34.0-46.0); HGB 12.3 gm/dL (11.4-16.0); Hypochromasia Marked; Lymphocytes % (A) 32 %; MCH 24.8 pg (25.0-35.0); MCHC 29.7 g/dL (31.0-37.0); MCV 83.6 fL (80.0-100.0); Mean Platelet Volume 7.5; Monocytes # (A) 0.4 k/uL (0-1.0); Monocytes % (A) 7 %; Neutrophils # (A) 3.6 k/uL (1.3-7.7); Neutrophils % (A) 56 %; Platelet Count 294 k/uL (150-450); RBC 4.98 m/uL (3.80-5.40); RDW 15.4 % (11.5-15.5); WBC 6.5 k/uL (3.8-10.6)
--- NOTE | 2021-11-08 12:31 | XR ---
EXAMINATION TYPE: XR chest 2V DATE OF EXAM: 11/08/2021 COMPARISON: 06/23/21 HISTORY: Shortness of breath TECHNIQUE: Frontal and lateral views of the chest are obtained. FINDINGS: Scattered senescent parenchymal changes noted. Hyperinflation compatible with COPD. No evidence for infiltrate. No evidence for atelectasis. Heart size is stable. Mediastinal structures are stable and grossly unremarkable. No evidence for hilar prominence. Degenerative changes dorsal spine. IMPRESSION: 1. No evidence for acute pulmonary disease.
[2021-11-08 12:35] LABS: ALT 12 U/L (4-34); AST 20 U/L (14-36); African American GFR (CKD) >90 (>60 ml/min/1.73 sqM); Albumin 3.6 g/dL (3.5-5.0); Alkaline Phosphatase 77 U/L (38-126); Anion Gap 7 mmol/L; Blood Urea Nitrogen 8 mg/dL (7-17); Calcium 8.8 mg/dL (8.4-10.2); Carbon Dioxide 34 mmol/L (22-30); Chloride 99 mmol/L (98-107); Glucose 98 mg/dL (74-99); Non-African American GFR(CKD) >90 (>60 ml/min/1.73 sqM); Potassium 3.9 mmol/L (3.5-5.1); Sodium 140 mmol/L (137-145); Total Bilirubin 0.4 mg/dL (0.2-1.3); Total Protein 5.8 g/dL (6.3-8.2)
[2021-11-08 12:37] LABS: INR 0.9 (<1.2); Partial Thromboplastin Time 24.7 sec (22.0-30.0); Prothrombin Time 10.2 sec (9.0-12.0)
[2021-11-08] MEDS ORDERED: IPRATROPIUM-ALBUTEROL 3 ML NEB INHALATION STA (14:35)
[2021-11-08] MEDS ORDERED: methylPREDNISolone SOD SUCCI 125 MG/2 ML VIAL IV STA (14:35)
[2021-11-08] MEDS ORDERED: MAGNESIUM SULFATE-D5W PMX 1 GM in DEXTROSE/WATER 1 100ML.BAG IVPB ONE (14:40)
[2021-11-08] MEDS ORDERED: cefTRIAXone IN SWFI 1,000 MG/10 ML SYRINGE IVP STA (14:55)
[2021-11-08] MEDS ORDERED: AZITHROMYCIN 500 MG in SODIUM CHLORIDE 0.9% 250 ML IVPB STA (14:55)
--- NOTE | 2021-11-08 14:56 | ED ---
SOB HPI - General Chief Complaint: Shortness of Breath Stated Complaint: KERI Time Seen by Provider: 11/08/21 11:46 Source: patient, EMS Mode of arrival: EMS Limitations: no limitations - History of Present Illness Initial Comments: 76-year-old female with past medical history of COPD, hypertension, hyperlipidemia who wears 2 L of home O2 presents to the emergency department with shortness of breath. States that she has been short of breath for the past several days however last night became significantly worse. She has been wearing her oxygen continuously. She has not been using her nebulizer however has been using her inhalers without relief. She admits to increased sputum production. Also reports to chest pain. Reports 2 previous cardiac history however denies KS or stent placement. No history of dysrhythmias. She denies any fevers. Admits chills. No lower extremity edema. No history of DVT or PE. No other alleviating, precipitating or modifying factors - Related Data Home Medications Medication Instructions Recorded Confirmed Simvastatin [Zocor] 40 mg PO HS 02/20/15 11/08/21 Diltiazem Cd [Cardizem CD] 240 mg PO DAILY 03/01/16 11/08/21 Montelukast Sodium [Singulair] 10 mg PO HS 03/01/16 11/08/21 Albuterol Sulfate [Ventolin HFA] 2 puff INHALATION RT-Q4H PRN 06/20/21 11/08/21 Ipratropium/Albuterol Sulfate 1 puff INHALATION RT-QID 06/20/21 11/08/21 [Combivent Respimat Inhaler] Omeprazole 20 mg PO DAILY 06/20/21 11/08/21 Sertraline [Zoloft] 200 mg PO DAILY 06/20/21 11/08/21 lisinopriL [Zestril] 20 mg PO DAILY 06/20/21 11/08/21 ALPRAZolam [Xanax] 0.5 mg PO TID 11/08/21 11/08/21 Acetaminophen [Tylenol Extra 1,000 mg PO Q6H PRN 11/08/21 11/08/21 Strength] Ondansetron [Zofran] 4 mg PO Q8HR PRN 11/08/21 11/08/21 Allergies Allergy/AdvReac Type Severity Reaction Status Date / Time No Known Allergies Allergy Verified 11/08/21 13:28 Review of Systems ROS Statement: Those systems with pertinent positive or pertinent negative responses have been documented in the HPI. ROS Other: All systems not noted in ROS Statement are negative. Past Medical History Past Medical History: Asthma, Chest Pain / Angina, COPD, GERD/Reflux, Hyperlipidemia, Hypertension, Pneumonia Additional Past Medical History / Comment(s): oxygen NC @2L continuous, gallstones, pernicious anemia History of Any Multi-Drug Resistant Organisms: None Reported Past Surgical History: Hernia Repair, Joint Replacement, Orthopedic Surgery, Tonsillectomy Additional Past Surgical History / Comment(s): left elbow surgery, abscess in stomach area, abdominial scar tissue, tamie oophorectomy, left knee surgery, left hip replacement Past Anesthesia/Blood Transfusion Reactions: No Reported Reaction Past Psychological History: Anxiety, Depression Smoking Status: Former smoker Past Alcohol Use History: None Reported Past Drug Use History: None Reported - Past Family History Mother Family Medical History: No Reported History Father Family Medical History: CVA/TIA, Myocardial Infarction ([place]) General Exam Limitations: no limitations Course Vital Signs 11/08/21 11/08/21 11/08/21 11:44 11:56 15:13 Temperature 97.5 F L Pulse Rate 112 H 80 Respiratory 16 18 18 Rate Blood Pressure 117/86 O2 Sat by Pulse 95 Oximetry 11/08/21 15:20 Temperature Pulse Rate 92 Respiratory 16 Rate Blood Pressure O2 Sat by Pulse Oximetry Medical Decision Making - Medical Decision Making Upon arrival patient is placed into room 7. A thorough history and physical exam was performed. Patient given DuoNeb breathing treatment, Solu-Medrol and a gram of magnesium. Laboratory studies are conducted. Twelve-lead EKG was performed patient remains on telemetry monitoring. Laboratory studies within normal limits. Chest x-ray demonstrates no acute process. We do attempt to get any. The patient however she still remains with significant exertional dyspnea. Patient will be admitted for cardiac monitoring. Awaiting callback from [facility] - Lab Data Result diagrams: 11/08/21 12:05 11/08/21 12:05 Lab Results 11/08/21 11/08/21 11/08/21 Range/Units 12:05 12:05 12:05 WBC 6.5 (3.8-10.6) k/uL RBC 4.98 (3.80-5.40) m/uL Hgb 12.3 (11.4-16.0) gm/dL Hct 41.6 (34.0-46.0) % MCV 83.6 (80.0-100.0) fL MCH 24.8 L (25.0-35.0) pg MCHC 29.7 L (31.0-37.0) g/dL RDW 15.4 (11.5-15.5) % Plt Count 294 (150-450) k/uL MPV 7.5 Neutrophils % 56 % Lymphocytes % 32 % Monocytes % 7 % Eosinophils % 3 % Basophils % 1 % Neutrophils # 3.6 (1.3-7.7) k/uL Lymphocytes # 2.0 (1.0-4.8) k/uL Monocytes # 0.4 (0-1.0) k/uL Eosinophils # 0.2 (0-0.7) k/uL Basophils # 0.1 (0-0.2) k/uL Hypochromasia Marked PT 10.2 (9.0-12.0) sec INR 0.9 (<1.2) APTT 24.7 (22.0-30.0) sec Sodium 140 (137-145) mmol/L Potassium 3.9 (3.5-5.1) mmol/L Chloride 99 (98-107) mmol/L Carbon Dioxide 34 H (22-30) mmol/L Anion Gap 7 mmol/L BUN 8 (7-17) mg/dL Creatinine 0.43 L (0.52-1.04) mg/dL Est GFR (CKD-EPI)AfAm >90 (>60 ml/min/1.73 sqM) Est GFR (CKD-EPI)NonAf >90 (>60 ml/min/1.73 sqM) Glucose 98 (74-99) mg/dL Plasma Lactic Acid Jarett (0.7-2.0) mmol/L Calcium 8.8 (8.4-10.2) mg/dL Total Bilirubin 0.4 (0.2-1.3) mg/dL AST 20 (14-36) U/L ALT 12 (4-34) U/L Alkaline Phosphatase 77 (38-126) U/L Troponin I (0.000-0.034) ng/mL NT-Pro-B Natriuret Pep pg/mL Total Protein 5.8 L (6.3-8.2) g/dL Albumin 3.6 (3.5-5.0) g/dL Coronavirus (PCR) (Not Detectd) 11/08/21 11/08/21 11/08/21 Range/Units 12:05 12:05 12:05 WBC (3.8-10.6) k/uL RBC (3.80-5.40) m/uL Hgb (11.4-16.0) gm/dL Hct (34.0-46.0) % MCV (80.0-100.0) fL MCH (25.0-35.0) pg MCHC (31.0-37.0) g/dL RDW (11.5-15.5) % Plt Count (150-450) k/uL MPV Neutrophils % % Lymphocytes % % Monocytes % % Eosinophils % % Basophils % % Neutrophils # (1.3-7.7) k/uL Lymphocytes # (1.0-4.8) k/uL Monocytes # (0-1.0) k/uL Eosinophils # (0-0.7) k/uL Basophils # (0-0.2) k/uL Hypochromasia PT (9.0-12.0) sec INR (<1.2) APTT (22.0-30.0) sec Sodium (137-145) mmol/L Potassium (3.5-5.1) mmol/L Chloride (98-107) mmol/L Carbon Dioxide (22-30) mmol/L Anion Gap mmol/L BUN (7-17) mg/dL Creatinine (0.52-1.04) mg/dL Est GFR (CKD-EPI)AfAm (>60 ml/min/1.73 sqM) Est GFR (CKD-EPI)NonAf (>60 ml/min/1.73 sqM) Glucose (74-99) mg/dL Plasma Lactic Acid Jarett 1.3 (0.7-2.0) mmol/L Calcium (8.4-10.2) mg/dL Total Bilirubin (0.2-1.3) mg/dL AST (14-36) U/L ALT (4-34) U/L Alkaline Phosphatase (38-126) U/L Troponin I <0.012 (0.000-0.034) ng/mL NT-Pro-B Natriuret Pep 81 pg/mL Total Protein (6.3-8.2) g/dL Albumin (3.5-5.0) g/dL Coronavirus (PCR) (Not Detectd) 11/08/21 Range/Units 12:42 WBC (3.8-10.6) k/uL RBC (3.80-5.40) m/uL Hgb (11.4-16.0) gm/dL Hct (34.0-46.0) % MCV (80.0-100.0) fL MCH (25.0-35.0) pg MCHC (31.0-37.0) g/dL RDW (11.5-15.5) % Plt Count (150-450) k/uL MPV Neutrophils % % Lymphocytes % % Monocytes % % Eosinophils % % Basophils % % Neutrophils # (1.3-7.7) k/uL Lymphocytes # (1.0-4.8) k/uL Monocytes # (0-1.0) k/uL Eosinophils # (0-0.7) k/uL Basophils # (0-0.2) k/uL Hypochromasia PT (9.0-12.0) sec INR (<1.2) APTT (22.0-30.0) sec Sodium (137-145) mmol/L Potassium (3.5-5.1) mmol/L Chloride (98-107) mmol/L Carbon Dioxide (22-30) mmol/L Anion Gap mmol/L BUN (7-17) mg/dL Creatinine (0.52-1.04) mg/dL Est GFR (CKD-EPI)AfAm (>60 ml/min/1.73 sqM) Est GFR (CKD-EPI)NonAf (>60 ml/min/1.73 sqM) Glucose (74-99) mg/dL Plasma Lactic Acid Jarett (0.7-2.0) mmol/L Calcium (8.4-10.2) mg/dL Total Bilirubin (0.2-1.3) mg/dL AST (14-36) U/L ALT (4-34) U/L Alkaline Phosphatase (38-126) U/L Troponin I (0.000-0.034) ng/mL NT-Pro-B Natriuret Pep pg/mL Total Protein (6.3-8.2) g/dL Albumin (3.5-5.0) g/dL Coronavirus (PCR) Not Detected (Not Detectd) - EKG Data EKG Comments: EKG demonstrates sinus rhythm with occasional PVCs. Rate of 99. NH interval 165. QRS 89. QTC 365. No acute ST segment elevations or depressions Disposition Clinical Impression: COPD exacerbation, Cough, Chest pain Disposition: ADMITTED IP TO THIS HOSP Condition: Stable Is patient prescribed a controlled substance at d/c from ED?: No Time of Disposition: 15:11 Decision to Admit Reason: Admit from EC Decision Date: 11/08/21 Decision Time: 15:11
[2021-11-08] MEDS ORDERED: NALOXONE 0.4 MG/ML 1 ML VIAL IV PRN (15:11)
[2021-11-08] MEDS ORDERED: SODIUM CHLORIDE 0.9% 1,000 ML IV SCH (15:15)
[2021-11-08] MEDS ORDERED: ASPIRIN 325 MG TAB PO STA (15:26)
[2021-11-08] MEDS ORDERED: methylPREDNISolone SOD SUCCI 40 MG/ML 1 ML VIAL IV SCH (16:00)
[2021-11-08] MEDS: IPRATROPIUM-ALBUTEROL 3 ML NEB INHALATION SCH ×3 (16:15→23:10)
[2021-11-08] MEDS ORDERED: ACETAMINOPHEN TAB 500 MG TAB PO PRN (16:47)
[2021-11-08] MEDS ORDERED: ALBUTEROL NEBULIZED 2.5 MG/3 ML INHALATION PRN (17:02)
--- NOTE | 2021-11-08 17:29 | P.HPIM ---
History of Present Illness H&P Date: 11/08/21 Chief Complaint: sob Patient is a 76-year-old female with past medical history of COPD on 2 L, GERD, hyperlipidemia, hypertension, anxiety presenting with acute shortness of breath and chest pain. She claims she was in her usual state of health up until 2 days ago when she started to experience chest pressure as well as shortness of breath. She claims that she was resting when the chest pressure started. It is mostly substernal and persistent, and can be up to 10/10. She denies any radiation. She claims that her shortness of breath worsens with exertion. She did have subjective fevers and chills. She is also coughing more than her normal and bringing up slightly yellow/green sputum. She denies any palpitations, lightheadedness, nausea, vomiting, abdominal pain, diarrhea, constipation, urinary complaints. She denies any recent sick contacts or travel history. In the ED, patient was afebrile, mildly tachycardic, 95% on 2 L, blood pressure 117/86, respiratory rate 16. Lab work was mostly unremarkable. Troponin negative 1. COVID negative. Chest x-ray was unremarkable. She was given bronchodilators, magnesium, steroids in the ED. She was also given ceftriaxone and azithromycin. Pertinent positives and negatives as discussed in HPI, a complete review of systems was performed and all other systems are negative. Patient seen and examined at bedside. Vital signs reviewed General: nontoxic, no distress, appears at stated age Derm: warm, dry Head: atraumatic, normocephalic, symmetric Eyes: EOMI, no lid lag, anicteric sclera, pupils equal round reactive to light ENT: Nose and ears atraumatic, no thrush, no pharyngeal erythema Neck: No thyromegaly, no cervical lymphadenopathy, trachea midline, supple Mouth: no lip lesion, mucus membranes moist Cardiovascular: S1S2 reg, no murmur, no edema Lungs: clear to auscultation bilateral, no rhonchi, no rales, no wheeze, no accessory muscle use, on 2L NC Abdominal: soft, nontender to palpation, no guarding, no appreciable organomegaly, normal bowel sounds Ext: no gross muscle atrophy, muscle strength muscle strength 5 out of 5 in all 4 extremities, no contractures Neuro: CN II-XII grossly intact, light touch intact all 4 extremities Psych: Alert, oriented, appropriate affect Assessment/Plan: Acute COPD exacerbation Possible pneumonia Chronic hypoxic respiratory failure -Chest x-ray unremarkable -Patient does have productive cough -Sputum cultures pending -Levofloxacin -Prednisone, bronchodilators -Patient at baseline oxygen requirement Acute chest pain, rule out ACS -EKG - sinus rhythm -Troponin negative 1, trend -Chest pain likely secondary to COPD exacerbation and anxiety -Continue telemetry Chronic medical problems: Hypertension Dyslipidemia Depression/anxiety - Continue home medications The patient is admitted with an anticipated less than 2 midnight stay for evaluation of shortness of breath and chest pain. Surrogate decision-maker: Son CODE STATUS: Full code DVT prophylaxis: Subcu heparin Anticipated discharge date: 11/[address]: Home A total of 45 minutes was spent on the care of this complex patient more than 50% of the time was spent in counseling and care coordination. Past Medical History Past Medical History: Asthma, Chest Pain / Angina, COPD, GERD/Reflux, Hyperlipidemia, Hypertension, Pneumonia Additional Past Medical History / Comment(s): oxygen [place] @2L continuous, gallstones, pernicious anemia History of Any Multi-Drug Resistant Organisms: None Reported Past Surgical History: Hernia Repair, Joint Replacement, Orthopedic Surgery, Ton sillectomy Additional Past Surgical History / Comment(s): left elbow surgery, abscess in stomach area, abdominial scar tissue, tamie oophorectomy, left knee surgery, left hip replacement Past Anesthesia/Blood Transfusion Reactions: No Reported Reaction Past Psychological History: Anxiety, Depression Smoking Status: Former smoker Past Alcohol Use History: None Reported Past Drug Use History: None Reported - Past Family History Mother Family Medical History: No Reported History Father Family Medical History: CVA/TIA, Myocardial Infarction ([place]) Medications and Allergies Home Medications Medication Instructions Recorded Confirmed Type Simvastatin [Zocor] 40 mg PO HS 02/20/15 11/08/21 History Diltiazem Cd [Cardizem CD] 240 mg PO DAILY 03/01/16 11/08/21 History Montelukast Sodium [Singulair] 10 mg PO HS 03/01/16 11/08/21 History Albuterol Sulfate [Ventolin HFA] 2 puff INHALATION RT-Q4H PRN 06/20/21 11/08/21 History Ipratropium/Albuterol Sulfate 1 puff INHALATION RT-QID 06/20/21 11/08/21 History [Combivent Respimat Inhaler] Omeprazole 20 mg PO DAILY 06/20/21 11/08/21 History Sertraline [Zoloft] 200 mg PO DAILY 06/20/21 11/08/21 History lisinopriL [Zestril] 20 mg PO DAILY 06/20/21 11/08/21 History ALPRAZolam [Xanax] 0.5 mg PO TID 11/08/21 11/08/21 History Acetaminophen [Tylenol Extra 1,000 mg PO Q6H PRN 11/08/21 11/08/21 History Strength] Ondansetron [Zofran] 4 mg PO Q8HR PRN 11/08/21 11/08/21 History Allergies Allergy/AdvReac Type Severity Reaction Status Date / Time No Known Allergies Allergy Verified 11/08/21 13:28 Physical Exam Vitals: Vital Signs Temp Pulse Resp BP Pulse Ox 11/08/21 15:20 92 16 11/08/21 15:13 80 18 11/08/21 11:56 18 11/08/21 11:44 97.5 F L 112 H 16 117/86 95 Intake and Output 11/08/21 11/08/21 11/08/21 06:59 14:59 22:59 Other: Weight 68.039 kg Results CBC & Chem 7: 11/08/21 12:05 11/08/21 12:05 Labs: Abnormal Lab Results - Last 24 Hours (Table) 11/08/21 11/08/21 Range/Units 12:05 12:05 MCH 24.8 L (25.0-35.0) pg MCHC 29.7 L (31.0-37.0) g/dL Carbon Dioxide 34 H (22-30) mmol/L Creatinine 0.43 L (0.52-1.04) mg/dL Total Protein 5.8 L (6.3-8.2) g/dL
[2021-11-08] MEDS: ATORVASTATIN 20 MG TAB PO SCH (19:53)
[2021-11-08] MEDS: MONTELUKAST 10 MG TAB PO SCH (19:53)
[2021-11-08] MEDS: ALPRAZolam 0.5 MG TAB PO SCH (20:00)
[2021-11-08] MEDS: LEVOFLOXACIN 750MG-D5W PMX 750 MG in DEXTROSE/WATER 1 150ML.BAG IVPB SCH (20:33)
[2021-11-09] MEDS: HEPARIN SODIUM,PORCINE/PF 5,000 UNIT/0.5 ML SYRINGE SQ SCH ×3 (01:15→15:32)
[2021-11-09] MEDS: IPRATROPIUM-ALBUTEROL 3 ML NEB INHALATION SCH ×6 (04:17→23:33)
[2021-11-09] MEDS: ALPRAZolam 0.5 MG TAB PO SCH ×3 (07:41→20:56)
[2021-11-09] MEDS: PANTOPRAZOLE 40 MG TABLET PO SCH (07:41)
[2021-11-09] MEDS: SERTRALINE 100 MG TAB PO SCH (08:14)
[2021-11-09] MEDS: lisinopriL 20 MG TAB PO SCH (08:14)
[2021-11-09] MEDS: DILTIAZEM CD 240 MG CAP.ER.24H PO SCH (08:14)
[2021-11-09] MEDS: predniSONE 20 MG TAB PO SCH (08:14)
[2021-11-09 10:37] LABS: Basophils # (A) 0 X 10*3/uL (0.00-0.10); Basophils % (A) 0 %; Eosinophils # (A) 0 X 10*3/uL (0.04-0.35); Eosinophils % (A) 0 %; HCT 39.2 % (37.2-46.3); HGB 11.6 g/dL (12.0-15.0); Immature Grans, Automated 0.6 %; Lymphocytes % (A) 16.9 %; MCH 24.7 pg (27.0-32.0); MCHC 29.6 g/dL (32.0-37.0); MCV 83.6 fL (80.0-97.0); Mean Platelet Volume 11.1 fL (9.5-12.2); Monocytes # (A) 0.03 X 10*3/uL (0.20-1.00); Monocytes % (A) 1.7 %; NRBC Per 100 WBC 0 /100 WBCS (0.0-0.0); Neutrophils # (A) 1.43 X 10*3/uL (1.80-7.70); Neutrophils % (A) 80.8 %; Platelet Count 311 X 10*3/uL (140-440); RBC 4.69 X 10*6/uL (4.10-5.20); RDW 15.3 % (11.5-14.5); WBC 1.77 X 10*3/uL (4.50-10.00)
[2021-11-09 10:51] LABS: African American GFR (CKD) 110.5 (60.0-200.0); Anion Gap 11.2 mmol/L (10.00-18.00); Calcium 9.1 mg/dL (8.7-10.3); Carbon Dioxide 26.8 mmol/L (20.0-27.5); Non-African American GFR(CKD) 95.3 (60.0-200.0); Potassium 4.8 mmol/L (3.5-5.5)
--- NOTE | 2021-11-09 15:28 | P.PN ---
Subjective Progress Note Date: 11/09/21 Principal diagnosis: SOB Hospital Course: 76-year-old female with history of COPD on 2 L, anxiety presenting with shortness of breath and chest pain. Patient admitted for COPD exacerbation and bacterial pneumonia. Subjective: Patient seen and examined at bedside. No acute events overnight. She claims that her breathing is slightly better, but not yet back to her baseline. She denies any further chest pain, palpitations, abdominal pain, N/V, diarrhea or constipation, or urinary complaints. Pertinent positives and negatives as discussed above, a complete review of systems was performed and all other systems are negative. Vitals Signs Reviewed. General: nontoxic, no distress, appears at stated age Derm: warm, dry Head: atraumatic, normocephalic, symmetric Eyes: EOMI, no lid lag, anicteric sclera Mouth: no lip lesion, mucus membranes moist Cardiovascular: S1S2 reg, no murmur Lungs: CTA bilateral, no rhonchi, no rales , no accessory muscle use, on 2L Abdominal: soft, nontender to palpation, no guarding, no appreciable organomegaly Ext: no gross muscle atrophy, no edema, no contractures Neuro: CN II-XI grossly intact, no focal neuro deficits Psych: Alert, oriented, appropriate affect, very anxious appearing Assessment and Plan: Acute COPD exacerbation Possible pneumonia Chronic hypoxic respiratory failure -Chest x-ray unremarkable -Patient does have productive cough -Levofloxacin -Prednisone, bronchodilators -Patient at baseline oxygen requirement Acute chest pain -EKG - sinus rhythm -Troponin negative 3 -ACS unlikely -Chest pain likely secondary to COPD exacerbation and anxiety -Continue telemetry Chronic medical problems: Hypertension Dyslipidemia Depression/anxiety - Continue home medications F: PO E: replete PRN N: heart health A: as tolerated DVT ppx: heparin sq Code status: Full code Anticipated discharge place: home Anticipated discharge time: tomorrow morning Objective - Vital Signs Vital signs: Vital Signs Temp 98.1 F 11/09/21 14:17 Pulse 77 11/09/21 15:21 Resp 16 11/09/21 14:17 BP 128/76 11/09/21 14:17 Pulse Ox 95 11/09/21 14:20 FiO2 Intake & Output 11/08/21 11/09/21 11/09/21 18:59 06:59 18:59 Intake Total 118 Balance 118 Weight 68.039 kg Intake: Oral 118 Other: # Voids 1 - Labs CBC & Chem 7: 11/09/21 06:44 11/09/21 06:44 Labs: Abnormal Lab Results - Last 24 Hours (Table) 11/09/21 11/09/21 Range/Units 06:44 06:44 WBC 1.77 L (4.50-10.00) X 10*3/uL Hgb 11.6 L (12.0-15.0) g/dL MCH 24.7 L (27.0-32.0) pg MCHC 29.6 L (32.0-37.0) g/dL RDW 15.3 H (11.5-14.5) % Neutrophils # 1.43 L (1.80-7.70) X 10*3/uL Lymphocytes # 0.30 L (0.90-5.00) X 10*3/uL Monocytes # 0.03 L (0.20-1.00) X 10*3/uL Eosinophils # 0 L (0.04-0.35) X 10*3/uL BUN 8.0 L (9.0-27.0) mg/dL Creatinine 0.5 L (0.6-1.5) mg/dL Glucose 149 H (70-110) mg/dL
[2021-11-09] MEDS: LEVOFLOXACIN 750MG-D5W PMX 750 MG in DEXTROSE/WATER 1 150ML.BAG IVPB SCH (17:36)
[2021-11-09] MEDS: ATORVASTATIN 20 MG TAB PO SCH (20:56)
[2021-11-09] MEDS: MONTELUKAST 10 MG TAB PO SCH (20:56)
[2021-11-10] MEDS: HEPARIN SODIUM,PORCINE/PF 5,000 UNIT/0.5 ML SYRINGE SQ SCH ×2 (00:46→08:58)
[2021-11-10] MEDS: IPRATROPIUM-ALBUTEROL 3 ML NEB INHALATION SCH ×3 (03:15→11:45)
[2021-11-10 08:20] VITALS: BP 130/78; RESP 20; TEMP 98.4
[2021-11-10] MEDS: ALPRAZolam 0.5 MG TAB PO SCH (08:57)
[2021-11-10] MEDS: SERTRALINE 100 MG TAB PO SCH (08:57)
[2021-11-10] MEDS: predniSONE 20 MG TAB PO SCH (08:57)
[2021-11-10] MEDS: PANTOPRAZOLE 40 MG TABLET PO SCH (08:58)
[2021-11-10] MEDS: lisinopriL 20 MG TAB PO SCH (08:58)
[2021-11-10] MEDS: DILTIAZEM CD 240 MG CAP.ER.24H PO SCH (08:58)
[2021-11-10 11:53] VITALS: PULSE 100
--- NOTE | 2021-11-10 15:01 | P.DS ---
Providers Date of admission: 11/08/21 15:11 Expected date of discharge: 11/10/21 Attending physician: Kayla Mcqueen MD Primary care physician: Tory Gonzalez Hospital Course: Discharge Diagnosis: Acute COPD exacerbation Bacterial pneumonia chronic hypoxic respiratory failure Chest pain Hypertension Dyslipidemia Depression/anxiety Hospital Course: 76-year-old female with history of COPD on 2 L, and anxiety presented with s hortness of breath and chest pain. Patient admitted for COPD exacerbation and bacterial pneumonia. Patient continues to be on her home oxygen. Chest pain likely noncardiac in origin given negative troponins and normal EKG. Patient discharged on a total of 5 days of prednisone and oral levofloxacin. Patient seen and examined at bedside. Vital signs reviewed and stable. General: nontoxic, no distress, appears at stated age Derm: warm, dry Head: atraumatic, normocephalic, symmetric Eyes: EOMI, no lid lag, anicteric sclera Mouth: no lip lesion, mucus membranes moist Cardiovascular: S1S2 reg, no murmur Lungs: CTA bilateral, no rhonchi, no rales , no accessory muscle use, 2 L nasal cannula Abdominal: soft, nontender to palpation, no guarding, no appreciable organomegaly Ext: no gross muscle atrophy, no edema, no contractures Neuro: CN II-XI grossly intact, no focal neuro deficits Psych: Alert, oriented, anxious appearing A total of 36 minutes of time were spent preparing this complex discharge summary. Patient was discharged on 03/12/21 09:01. Patient Condition at Discharge: Stable Plan - Discharge Summary New Discharge Prescriptions: New predniSONE [Deltasone] 40 mg PO DAILY #3 tab Levofloxacin [Levaquin] 750 mg PO DAILY 1 Days #3 tab Continue Simvastatin [Zocor] 40 mg PO HS Montelukast Sodium [Singulair] 10 mg PO HS Diltiazem Cd [Cardizem CD] 240 mg PO DAILY Sertraline [Zoloft] 200 mg PO DAILY lisinopriL [Zestril] 20 mg PO DAILY Omeprazole 20 mg PO DAILY Ondansetron [Zofran] 4 mg PO Q8HR PRN PRN Reason: Nausea ALPRAZolam [Xanax] 0.5 mg PO TID Albuterol Sulfate [Ventolin HFA] 2 puff INHALATION RT-Q4H PRN PRN Reason: Shortness Of Breath Ipratropium/Albuterol Sulfate [Combivent Respimat Inhaler] 1 puff INHALATION RT-QID Acetaminophen [Tylenol Extra Strength] 1,000 mg PO Q6H PRN PRN Reason: Fever And/ Or Pain Discharge Medication List Simvastatin [Zocor] 40 mg PO HS 02/20/15 [History] Diltiazem Cd [Cardizem CD] 240 mg PO DAILY 03/01/16 [History] Montelukast Sodium [Singulair] 10 mg PO HS 03/01/16 [History] Albuterol Sulfate [Ventolin HFA] 2 puff INHALATION RT-Q4H PRN 06/20/21 [History] Ipratropium/Albuterol Sulfate [Combivent Respimat Inhaler] 1 puff INHALATION RT- QID 06/20/21 [History] Omeprazole 20 mg PO DAILY 06/20/21 [History] Sertraline [Zoloft] 200 mg PO DAILY 06/20/21 [History] lisinopriL [Zestril] 20 mg PO DAILY 06/20/21 [History] ALPRAZolam [Xanax] 0.5 mg PO TID 11/08/21 [History] Acetaminophen [Tylenol Extra Strength] 1,000 mg PO Q6H PRN 11/08/21 [History] Ondansetron [Zofran] 4 mg PO Q8HR PRN 11/08/21 [History] Levofloxacin [Levaquin] 750 mg PO DAILY 1 Days #3 tab 11/10/21 [Rx] predniSONE [Deltasone] 40 mg PO DAILY #3 tab 11/10/21 [Rx] Follow up Appointment(s)/Referral(s): Tory Gonzalez MD [Primary Care Provider] - 1-2 days (Please call to schedule appointment.) Patient Instructions/Handouts: COPD (Chronic Obstructive Pulmonary Disease) (DC), Pneumonia (DC) Activity/Diet/Wound Care/Special Instructions: Please see your PCP as soon as possible. Discharge Disposition: HOME SELF-CARE
== END 2021-11-10 12:27 | disposition home or self-care (01) ==
LOC: EC 11:43 → 6NMEDSUR 15:11
PROVIDERS: ADMIT Family Medicine; ATTEND Family Medicine
DX: J44.1 Chronic obstructive pulmonary disease with (acute) exacerbation (principal); J44.0 Chronic obstructive pulmonary disease with (acute) lower respiratory infection; J15.9 Unspecified bacterial pneumonia; J96.11 Chronic respiratory failure with hypoxia; I10 Essential (primary) hypertension; E78.5 Hyperlipidemia, unspecified; K21.9 Gastro-esophageal reflux disease without esophagitis; F32.A Depression, unspecified; F41.9 Anxiety disorder, unspecified; Z87.891 Personal history of nicotine dependence; Z99.81 Dependence on supplemental oxygen; Z96.642 Presence of left artificial hip joint; Z79.899 Other long term (current) drug therapy; Z82.3 Family history of stroke; Z82.49 Family history of ischemic heart disease and other diseases of the circulatory system; Z20.822 Contact with and (suspected) exposure to COVID-19
CPT/HCPCS: 96366 ×3; 96367 ×2; 96372 ×2; 96365; 96375; 99285; 36415; 94640 ×6; 94760; 93005; 83880; 80053; 80048; 83605; 84484; 85025 ×2; 85610; 85730; 87040; 87635; 71046; G0378 ×3; J2930; J0456; J0696; J1956 ×2; J3475; J7512 ×2; J1644 ×2

== ENCOUNTER 2021-12-17 17:55 | Inpatient (IN) | payer MEDICARE, OTHER ==
--- NOTE | 2021-12-17 18:06 | ED ---
General Adult HPI - General Chief complaint: Weakness Stated complaint: weakness Time Seen by Provider: 12/17/21 17:59 Source: patient Mode of arrival: EMS Limitations: no limitations - History of Present Illness Initial comments: Patient presents to the ED by ambulance for evaluation. Patient reports not feeling well for the past week or so. Patient reports having symptoms of dyspnea, a productive cough, nausea, generalized weakness and occasional chest pain over the past week or so. Patient denies having any dyspnea, nausea or chest pain currently. Patient states that she is on 2 L of home O2 due to COPD. EMS reports that the patient was hypotensive on their arrival, and she was given a dose of epinephrine 10 g IV by EMS due to her hypotension. Patient denies fever or chills, headache, focal numbness/weakness/neuro deficit, sore throat, neck/arm/jaw pain, back pain, pleuritic pain, hemoptysis, palpitations, syncope, vomiting, abdominal pain, diarrhea or constipation, bloody or melanotic stool, dysuria/hematuria/urinary frequency/urinary symptoms, leg or calf swelling or pain, or any other symptoms or complaints. - Related Data Home Medications Medication Instructions Recorded Confirmed Simvastatin [Zocor] 40 mg PO HS 02/20/15 12/17/21 Diltiazem Cd [Cardizem CD] 240 mg PO DAILY 03/01/16 12/17/21 Montelukast Sodium [Singulair] 10 mg PO HS 03/01/16 12/17/21 Albuterol Sulfate [Ventolin HFA] 2 puff INHALATION RT-Q4H PRN 06/20/21 12/17/21 Ipratropium/Albuterol Sulfate 1 puff INHALATION RT-QID 06/20/21 12/17/21 [Combivent Respimat Inhaler] Omeprazole 20 mg PO DAILY 06/20/21 12/17/21 Sertraline [Zoloft] 200 mg PO DAILY 06/20/21 12/17/21 lisinopriL [Zestril] 20 mg PO DAILY 06/20/21 12/17/21 ALPRAZolam [Xanax] 0.5 mg PO TID 11/08/21 12/17/21 Acetaminophen [Tylenol Extra 1,000 mg PO Q6H PRN 11/08/21 12/17/21 Strength] Ondansetron [Zofran] 4 mg PO Q8HR PRN 11/08/21 12/17/21 Allergies Allergy/AdvReac Type Severity Reaction Status Date / Time No Known Allergies Allergy Verified 12/17/21 18:50 Review of Systems ROS Statement: Those systems with pertinent positive or pertinent negative responses have been documented in the HPI. ROS Other: All systems not noted in ROS Statement are negative. Past Medical History Past Medical History: Asthma, Chest Pain / Angina, COPD, GERD/Reflux, Hyperlipidemia, Hypertension, Pneumonia Additional Past Medical History / Comment(s): oxygen NC @2L continuous, gallstones, pernicious anemia History of Any Multi-Drug Resistant Organisms: None Reported Past Surgical History: Hernia Repair, Joint Replacement, Orthopedic Surgery, Tonsillectomy Additional Past Surgical History / Comment(s): left elbow surgery, abscess in stomach area, abdominial scar tissue, tamie oophorectomy, left knee surgery, left hip replacement Past Anesthesia/Blood Transfusion Reactions: No Reported Reaction Past Psychological History: Anxiety, Depression Smoking Status: Former smoker Past Alcohol Use History: None Reported Past Drug Use History: None Reported - Past Family History Mother Family Medical History: No Reported History Additional Family Medical History / Comment(s): MS Father Family Medical History: CVA/TIA, Myocardial Infarction ([place]) Additional Family Medical History / Comment(s): ETOH General Exam Limitations: no limitations General appearance: alert, in no apparent distress Head exam: Present: atraumatic, normocephalic Eye exam: Present: normal appearance, EOMI ENT exam: Present: normal oropharynx, mucous membranes moist Neck exam: Present: other (Trachea is in midline) Respiratory exam: Present: normal lung sounds bilaterally. Absent: respiratory distress, wheezes, rales, rhonchi, stridor, chest wall tenderness Cardiovascular Exam: Present: normal rhythm, tachycardia, normal heart sounds, other (Normal radial pulses bilaterally) GI/Abdominal exam: Present: soft. Absent: distended, tenderness, guarding Extremities exam: Present: other (Negative Homans sign bilaterally). Absent: tenderness, pedal edema, calf tenderness Neurological exam: Present: alert, oriented X3. Absent: motor sensory deficit Psychiatric exam: Present: normal affect, normal mood Skin exam: Present: warm, dry, intact, normal color Course Vital Signs 12/17/21 12/17/21 12/17/21 17:56 18:03 18:37 Temperature 97.9 F Pulse Rate 136 H 128 H Respiratory 18 20 18 Rate Blood Pressure 102/79 90/61 O2 Sat by Pulse 97 97 Oximetry 12/17/21 12/17/21 19:03 20:00 Temperature Pulse Rate 117 H 93 Respiratory 17 Rate Blood Pressure 89/65 85/69 O2 Sat by Pulse 96 Oximetry - Reevaluation(s) Reevaluation #1: 12/17/21 21:30 Case, H&P, test results and ED management thus far were discussed with Dr. Mederos. He accepts hospital admission. He agrees with cardiology consultation. He has no further recommendations at this time. 12/17/21 21:37 Patient continues to deny having any chest pain or dyspnea while in the ED. Patient denies development of any new symptoms while in the ED. Patient remains alert and breathing comfortably. Patient is aware of her test results, and she agrees with hospital admission at this time. EKG Findings - EKG Comments: EKG Findings:: Sinus tachycardia, ventricular rate of 127 bpm, no ectopy, normal DC and QRS intervals, normal QT interval, normal axis, nonspecific T-wave abnormality Medical Decision Making - Medical Decision Making Patient's tachycardia has improved while in the ED. Patient denies having any chest pain or dyspnea while in the ED. Patient's troponin and d-dimer are elevated, but the rest of her labs are fairly unremarkable. Patient's EKG shows no ST elevation. Patient has been treated with aspirin and IV heparin in the ED. I suspect that the patient's symptoms may be secondary to a cardiac event/NSTEMI given her elevated troponin. Patient's CT angiography chest is negative for PE. Will admit the patient to the hospital for serial troponins, cardiac monitoring, continued anticoagulation and cardiology consultation. Dr. Mederos has accepted hospital admission. - Lab Data Result diagrams: 12/17/21 18:21 12/17/21 18:21 Lab Results 12/17/21 12/17/21 12/17/21 Range/Units 18:21 18:21 18:21 WBC 5.2 (3.8-10.6) k/uL RBC 4.79 (3.80-5.40) m/uL Hgb 12.8 (11.4-16.0) gm/dL Hct 40.6 (34.0-46.0) % MCV 84.9 (80.0-100.0) fL MCH 26.8 (25.0-35.0) pg MCHC 31.6 (31.0-37.0) g/dL RDW 17.5 H (11.5-15.5) % Plt Count 266 (150-450) k/uL MPV 8.5 Neutrophils % 61 % Lymphocytes % 29 % Monocytes % 6 % Eosinophils % 2 % Basophils % 1 % Neutrophils # 3.2 (1.3-7.7) k/uL Lymphocytes # 1.5 (1.0-4.8) k/uL Monocytes # 0.3 (0-1.0) k/uL Eosinophils # 0.1 (0-0.7) k/uL Basophils # 0.1 (0-0.2) k/uL Hypochromasia Marked Anisocytosis Slight PT 10.6 (9.0-12.0) sec INR 1.0 (<1.2) APTT 20.3 L (22.0-30.0) sec D-Dimer 0.82 H (<0.60) mg/L FEU Sodium (137-145) mmol/L Potassium (3.5-5.1) mmol/L Chloride (98-107) mmol/L Carbon Dioxide (22-30) mmol/L Anion Gap mmol/L BUN (7-17) mg/dL Creatinine (0.52-1.04) mg/dL Est GFR (CKD-EPI)AfAm (>60 ml/min/1.73 sqM) Est GFR (CKD-EPI)NonAf (>60 ml/min/1.73 sqM) Glucose (74-99) mg/dL Plasma Lactic Acid Jarett (0.7-2.0) mmol/L Calcium (8.4-10.2) mg/dL Total Bilirubin (0.2-1.3) mg/dL AST (14-36) U/L ALT (4-34) U/L Alkaline Phosphatase (38-126) U/L Troponin I (0.000-0.034) ng/mL NT-Pro-B Natriuret Pep pg/mL Total Protein (6.3-8.2) g/dL Albumin (3.5-5.0) g/dL Influenza Type A (PCR) Not Detected (Not Detectd) Influenza Type B (PCR) Not Detected (Not Detectd) RSV (PCR) Not Detected (Not Detectd) SARS-CoV-2 (PCR) Not Detected (Not Detectd) 12/17/21 12/17/21 12/17/21 Range/Units 18:21 18:21 18:21 WBC (3.8-10.6) k/uL RBC (3.80-5.40) m/uL Hgb (11.4-16.0) gm/dL Hct (34.0-46.0) % MCV (80.0-100.0) fL MCH (25.0-35.0) pg MCHC (31.0-37.0) g/dL RDW (11.5-15.5) % Plt Count (150-450) k/uL MPV Neutrophils % % Lymphocytes % % Monocytes % % Eosinophils % % Basophils % % Neutrophils # (1.3-7.7) k/uL Lymphocytes # (1.0-4.8) k/uL Monocytes # (0-1.0) k/uL Eosinophils # (0-0.7) k/uL Basophils # (0-0.2) k/uL Hypochromasia Anisocytosis PT (9.0-12.0) sec INR (<1.2) APTT (22.0-30.0) sec D-Dimer (<0.60) mg/L FEU Sodium 138 (137-145) mmol/L Potassium 4.0 (3.5-5.1) mmol/L Chloride 98 (98-107) mmol/L Carbon Dioxide 29 (22-30) mmol/L Anion Gap 11 mmol/L BUN 8 (7-17) mg/dL Creatinine 0.41 L (0.52-1.04) mg/dL Est GFR (CKD-EPI)AfAm >90 (>60 ml/min/1.73 sqM) Est GFR (CKD-EPI)NonAf >90 (>60 ml/min/1.73 sqM) Glucose 91 (74-99) mg/dL Plasma Lactic Acid Jarett 1.0 (0.7-2.0) mmol/L Calcium 8.7 (8.4-10.2) mg/dL Total Bilirubin 0.6 (0.2-1.3) mg/dL AST 25 (14-36) U/L ALT 12 (4-34) U/L Alkaline Phosphatase 70 (38-126) U/L Troponin I 0.900 H* (0.000-0.034) ng/mL NT-Pro-B Natriuret Pep pg/mL Total Protein 5.6 L (6.3-8.2) g/dL Albumin 3.5 (3.5-5.0) g/dL Influenza Type A (PCR) (Not Detectd) Influenza Type B (PCR) (Not Detectd) RSV (PCR) (Not Detectd) SARS-CoV-2 (PCR) (Not Detectd) 12/17/21 Range/Units 18:21 WBC (3.8-10.6) k/uL RBC (3.80-5.40) m/uL Hgb (11.4-16.0) gm/dL Hct (34.0-46.0) % MCV (80.0-100.0) fL MCH (25.0-35.0) pg MCHC (31.0-37.0) g/dL RDW (11.5-15.5) % Plt Count (150-450) k/uL MPV Neutrophils % % Lymphocytes % % Monocytes % % Eosinophils % % Basophils % % Neutrophils # (1.3-7.7) k/uL Lymphocytes # (1.0-4.8) k/uL Monocytes # (0-1.0) k/uL Eosinophils # (0-0.7) k/uL Basophils # (0-0.2) k/uL Hypochromasia Anisocytosis PT (9.0-12.0) sec INR (<1.2) APTT (22.0-30.0) sec D-Dimer (<0.60) mg/L FEU Sodium (137-145) mmol/L Potassium (3.5-5.1) mmol/L Chloride (98-107) mmol/L Carbon Dioxide (22-30) mmol/L Anion Gap mmol/L BUN (7-17) mg/dL Creatinine (0.52-1.04) mg/dL Est GFR (CKD-EPI)AfAm (>60 ml/min/1.73 sqM) Est GFR (CKD-EPI)NonAf (>60 ml/min/1.73 sqM) Glucose (74-99) mg/dL Plasma Lactic Acid Jarett (0.7-2.0) mmol/L Calcium (8.4-10.2) mg/dL Total Bilirubin (0.2-1.3) mg/dL AST (14-36) U/L ALT (4-34) U/L Alkaline Phosphatase (38-126) U/L Troponin I (0.000-0.034) ng/mL NT-Pro-B Natriuret Pep 4890 pg/mL Total Protein (6.3-8.2) g/dL Albumin (3.5-5.0) g/dL Influenza Type A (PCR) (Not Detectd) Influenza Type B (PCR) (Not Detectd) RSV (PCR) (Not Detectd) SARS-CoV-2 (PCR) (Not Detectd) - Radiology Data Chest x-ray: No active cardiopulmonary disease. Atheromatous aorta. No change. CT angiography chest with IV contrast: No evidence of pulmonary embolism. There is evidence of COPD and mild pulmonary fibrosis. Minimal thoracic compression fractures are stable compared to old exam. Critical Care Time Critical Care Time: Yes Total Critical Care Time: 50 Disposition Clinical Impression: Dyspnea, Weakness, Elevated troponin Disposition: ADMITTED IP TO THIS HOSP Condition: Stable Is patient prescribed a controlled substance at d/c from ED?: No Referrals: Tory Gonzalez MD [Primary Care Provider] - 1-2 days Time of Disposition: 21:33
[2021-12-17] MEDS ORDERED: SODIUM CHLORIDE 0.9% 500 ML 500 ML IV STA (18:12)
[2021-12-17 18:38] LABS: Anisocytosis Slight; Basophils # (A) 0.1 k/uL (0-0.2); Basophils % (A) 1 %; Eosinophils # (A) 0.1 k/uL (0-0.7); Eosinophils % (A) 2 %; HCT 40.6 % (34.0-46.0); HGB 12.8 gm/dL (11.4-16.0); Hypochromasia Marked; Lymphocytes # (A) 1.5 k/uL (1.0-4.8); Lymphocytes % (A) 29 %; MCH 26.8 pg (25.0-35.0); MCHC 31.6 g/dL (31.0-37.0); MCV 84.9 fL (80.0-100.0); Mean Platelet Volume 8.5; Monocytes # (A) 0.3 k/uL (0-1.0); Monocytes % (A) 6 %; Neutrophils # (A) 3.2 k/uL (1.3-7.7); Neutrophils % (A) 61 %; Platelet Count 266 k/uL (150-450); RBC 4.79 m/uL (3.80-5.40); RDW 17.5 % (11.5-15.5); WBC 5.2 k/uL (3.8-10.6)
[2021-12-17 18:49] LABS: ALT 12 U/L (4-34); AST 25 U/L (14-36); African American GFR (CKD) >90 (>60 ml/min/1.73 sqM); Albumin 3.5 g/dL (3.5-5.0); Alkaline Phosphatase 70 U/L (38-126); Anion Gap 11 mmol/L; Blood Urea Nitrogen 8 mg/dL (7-17); Calcium 8.7 mg/dL (8.4-10.2); Carbon Dioxide 29 mmol/L (22-30); Chloride 98 mmol/L (98-107); Glucose 91 mg/dL (74-99); Non-African American GFR(CKD) >90 (>60 ml/min/1.73 sqM); Sodium 138 mmol/L (137-145); Total Bilirubin 0.6 mg/dL (0.2-1.3); Total Protein 5.6 g/dL (6.3-8.2)
--- NOTE | 2021-12-17 19:07 | XR ---
EXAMINATION TYPE: XR chest 1V portable DATE OF EXAM: 12/17/2021 COMPARISON: 11/08/2021 HISTORY: Cough and short of breath TECHNIQUE: FINDINGS: There is no heart failure nor confluent pneumonic infiltrate. Costophrenic angles are clear. There ar e chest leads. Bony thorax is intact. IMPRESSION: No active cardiopulmonary disease. Atheromatous aorta. No change.
[2021-12-17 19:39] LABS: Partial Thromboplastin Time 20.3 sec (22.0-30.0); Prothrombin Time 10.6 sec (9.0-12.0)
[2021-12-17] MEDS ORDERED: ASPIRIN 81 MG PO STA (19:45)
[2021-12-17] MEDS ORDERED: HEPARIN SODIUM 1,000 UN/ML (10ML VL) IV PRN (19:54)
[2021-12-17] MEDS ORDERED: HEPARIN SODIUM 1,000 UN/ML (10ML VL) IV ONE (19:54)
[2021-12-17] MEDS ORDERED: SODIUM CHLORIDE 0.9% 500 ML 500 ML IV ONE (19:54)
[2021-12-17] MEDS: HEPARIN SOD,PORK IN 0.45% NACL 25,000 UNIT in 0.45% NACL 1 250ML.BAG IV SCH (20:33)
--- NOTE | 2021-12-17 20:46 | CT ---
EXAMINATION TYPE: CT chest angio for PE DATE OF EXAM: 12/17/2021 COMPARISON: 06/20/2016 HISTORY: Dyspnea, elevated d-dimer CT DLP: 268.6 mGycm Automated exposure control for dose reduction was used. CONTRAST: Performed with IV Contrast, patient injected with 100cc mL of Isovue 370. There are Three-D postprocessed images. There is some minimal reticular interstitial density in the lower lung larson. Heart size is normal. No pericardial effusion. No pleural effusion or pneumothorax. There is no mediastinal adenopathy. There are no hilar masses. There is normal contrast opacification of the pulmonary arteries. No filling defect. There is a 1 cm calcified gallstone. There is mild flattening of the diaphragm. The thoracic spine is intact. There is T6 wedging 15%. The re is also T4 wedging 15%. IMPRESSION: No evidence of pulmonary embolism. There is evidence of COPD and mild pulmonary fibrosis. Minimal tho racic compression fractures are stable compared to old exam.
[2021-12-18 00:40] LABS: Appearance,Urine Clear (Clear); Bacteria,Urine Rare /hpf; Bilirubin,Urine Negative (Negative); Blood,Urine Negative (Negative); Color,Urine Yellow; Glucose,Urine (UA) Negative (Negative); Ketones,Urine 1+ (Negative); Leukocyte Esterase,Urine Moderate (Negative); Mucus,Urine Rare /hpf; Nitrite,Urine Negative (Negative); Protein,Urine Trace (Negative); RBC,Urine 1 /hpf (0-5); Squamous Epithelial Cell,Urine 1 /hpf (0-4); Urobilinogen,Urine <2.0 mg/dL (<2.0); WBC,Urine 5 /hpf (0-5)
[2021-12-18 00:42] LABS: Specific Gravity,Urine 1.047 (1.001-1.035)
[2021-12-18] MEDS: SODIUM CHLORIDE 0.9% 1,000 ML IV SCH ×2 (01:36→17:18)
[2021-12-18 02:11] LABS: Anisocytosis Slight; Basophils % (A) 1 %; Eosinophils # (A) 0.1 k/uL (0-0.7); Eosinophils % (A) 2 %; HCT 37.5 % (34.0-46.0); HGB 11.4 gm/dL (11.4-16.0); Hypochromasia Marked; Lymphocytes # (A) 1.8 k/uL (1.0-4.8); Lymphocytes % (A) 40 %; MCHC 30.4 g/dL (31.0-37.0); MCV 85.8 fL (80.0-100.0); Mean Platelet Volume 8.5; Monocytes # (A) 0.3 k/uL (0-1.0); Monocytes % (A) 7 %; Neutrophils # (A) 2.1 k/uL (1.3-7.7); Neutrophils % (A) 48 %; Platelet Count 252 k/uL (150-450); RBC 4.38 m/uL (3.80-5.40); RDW 17.9 % (11.5-15.5); WBC 4.4 k/uL (3.8-10.6)
[2021-12-18 02:44] LABS: Prothrombin Time 11.1 sec (9.0-12.0)
[2021-12-18 02:48] LABS: Partial Thromboplastin Time 116.7 sec (22.0-30.0)
[2021-12-18] MEDS: PANTOPRAZOLE 40 MG TABLET PO SCH (06:37)
[2021-12-18] MEDS: IPRATROPIUM-ALBUTEROL 3 ML NEB INHALATION SCH ×3 (08:23→20:06)
[2021-12-18] MEDS: ONDANSETRON 4 MG/2 ML VIAL IVP PRN ×2 (08:30→14:00)
[2021-12-18 09:49] LABS: Anisocytosis Slight; Basophils % (A) 1 %; Eosinophils # (A) 0.1 k/uL (0-0.7); Eosinophils % (A) 2 %; HCT 40.2 % (34.0-46.0); HGB 12.1 gm/dL (11.4-16.0); Hypochromasia Marked; Lymphocytes # (A) 1.6 k/uL (1.0-4.8); Lymphocytes % (A) 35 %; MCH 26.3 pg (25.0-35.0); MCHC 30.2 g/dL (31.0-37.0); Mean Platelet Volume 8.2; Monocytes # (A) 0.3 k/uL (0-1.0); Monocytes % (A) 6 %; Neutrophils # (A) 2.5 k/uL (1.3-7.7); Neutrophils % (A) 54 %; Platelet Count 243 k/uL (150-450); RBC 4.62 m/uL (3.80-5.40); RDW 17.5 % (11.5-15.5); WBC 4.6 k/uL (3.8-10.6)
[2021-12-18 10:07] LABS: ALT 11 U/L (4-34); AST 22 U/L (14-36); African American GFR (CKD) >90 (>60 ml/min/1.73 sqM); Albumin 2.9 g/dL (3.5-5.0); Alkaline Phosphatase 61 U/L (38-126); Anion Gap 9 mmol/L; Blood Urea Nitrogen 6 mg/dL (7-17); Calcium 8.3 mg/dL (8.4-10.2); Carbon Dioxide 27 mmol/L (22-30); Chloride 102 mmol/L (98-107); Glucose 62 mg/dL (74-99); Non-African American GFR(CKD) >90 (>60 ml/min/1.73 sqM); Potassium 3.7 mmol/L (3.5-5.1); Sodium 138 mmol/L (137-145); Total Bilirubin 0.5 mg/dL (0.2-1.3); Total Protein 4.7 g/dL (6.3-8.2)
--- NOTE | 2021-12-18 10:23 | P.HPIM ---
History of Present Illness This is a pleasant 76 years old female with multiple medical problems as below. Patient states that she presents because of weakness and dyspnea for about a week, yesterday become more severe and she got hit by profound super weakness and more shortness of breath associated with dizziness and nausea. Therefore she decided to come to emergency room. She had mild chest pain or discomfort about 1-2/10 in severity which is nonspecific. Patient still complains from chest tightness,. She uses 2 L of oxygen at home, she has a patent all the times. She smoked since age 18 total 30s, by her mid 30s years of age she started having asthma/COPD Her quality control analyst is Dr. Gonzalez before we consult consult after only Pt initially hypotensive with SBP of 80. Pt given 500 ml 0.9 bolus and it brought pts BP to 94 SBP. EMS then gave 10 mcg of epi which improved BP to 150/90s. Overnight patient became tachycardic so started her on normal saline 75 mL/h, her tachycardia improved today. Because of her dehydration will give her 50 mL/h 24 hours. Patient is tachycardic with heart rate 120s and tachypneic at 20-22 Labs showing unremarkable CBC with normal WBC of 4.4. INR 1.0. D-dimer 0.8. BMP is unremarkable including liver enzymes. Troponin is elevated at 0.92. Urine analysis looks like concentrated sample but has 1+ ketones and moderate leukocytes esterase. Viruses are not detected including influenza, Covid, RSV CT of the chest with contrast, no evidence of pulmonary embolism. There is evidence of COPD and mild pulmonary fibrosis. Minimal thoracic compression fracture are stable compared to old exam. Chest x-ray no active cardiopulmonary disease. AV started on heparin drip and aspirin 1. Also started on normal saline 75 mL/h Review of Systems Review of systems CONSTITUTIONAL: No fever, no malaise, no fatigue. HEENT: No recent visual problems or hearing problems. Denied any sore throat. CARDIOVASCULAR: No orthopnea, PND, no palpitations, no syncope. PULMONARY: No chest wall tenderness, no hemoptysis. GASTROINTESTINAL: No diarrhea, no nausea, no vomiting, no abdominal pain. Normoactive bowel sounds. NEUROLOGICAL: No headaches, no weakness, no numbness. HEMATOLOGICAL: Denies any bleeding or petechiae. GENITOURINARY: Denies any burning micturition, frequency, or urgency. MUSCULOSKELETAL/RHEUMATOLOGICAL: Denies any joint pain, swelling, or any muscle pain. ENDOCRINE: Denies any polyuria or polydipsia. Past Medical History Past Medical History: Asthma, Chest Pain / Angina, COPD, GERD/Reflux, Hyperlip idemia, Hypertension, Pneumonia Additional Past Medical History / Comment(s): oxygen NC @2L continuous, gallstones, pernicious anemia History of Any Multi-Drug Resistant Organisms: None Reported Past Surgical History: Hernia Repair, Joint Replacement, Orthopedic Surgery, Tonsillectomy Additional Past Surgical History / Comment(s): left elbow surgery, abscess in stomach area, abdominial scar tissue, tamie oophorectomy, left knee surgery, left hip replacement Past Anesthesia/Blood Transfusion Reactions: No Reported Reaction Past Psychological History: Anxiety, Depression Smoking Status: Former smoker Past Alcohol Use History: None Reported Additional Past Alcohol Use History / Comment(s): quit smoking 2001, smoked since age 18, 2 PPD Past Drug Use History: None Reported - Past Family History Mother Family Medical History: No Reported History Additional Family Medical History / Comment(s): MS Father Family Medical History: CVA/TIA, Myocardial Infarction ([place]) Additional Family Medical History / Comment(s): ETOH Medications and Allergies Home Medications Medication Instructions Recorded Confirmed Type Simvastatin [Zocor] 40 mg PO HS 02/20/15 12/17/21 History Diltiazem Cd [Cardizem CD] 240 mg PO DAILY 03/01/16 12/17/21 History Montelukast Sodium [Singulair] 10 mg PO HS 03/01/16 12/17/21 History Albuterol Sulfate [Ventolin HFA] 2 puff INHALATION RT-Q4H PRN 06/20/21 12/17/21 History Ipratropium/Albuterol Sulfate 1 puff INHALATION RT-QID 06/20/21 12/17/21 History [Combivent Respimat Inhaler] Omeprazole 20 mg PO DAILY 06/20/21 12/17/21 History Sertraline [Zoloft] 200 mg PO DAILY 06/20/21 12/17/21 History lisinopriL [Zestril] 20 mg PO DAILY 06/20/21 12/17/21 History ALPRAZolam [Xanax] 0.5 mg PO TID 11/08/21 12/17/21 History Acetaminophen [Tylenol Extra 1,000 mg PO Q6H PRN 11/08/21 12/17/21 History Strength] Ondansetron [Zofran] 4 mg PO Q8HR PRN 11/08/21 12/17/21 History Allergies Allergy/AdvReac Type Severity Reaction Status Date / Time No Known Allergies Allergy Verified 12/17/21 18:50 Physical Exam Vitals: Vital Signs Temp Pulse Pulse Resp BP BP Pulse Ox 12/18/21 08:35 90 12/18/21 08:27 74 12/18/21 08:26 98 12/18/21 08:00 98.1 F 96 18 109/64 98 12/18/21 04:00 92 18 103/62 99 12/18/21 02:00 125 H 20 12/17/21 23:19 98.2 F 126 H 20 113/76 95 12/17/21 22:41 98.2 F 126 H 22 113/76 95 12/17/21 22:00 97.9 F 92 16 88/58 98 12/17/21 20:00 93 17 85/69 96 12/17/21 19:03 117 H 89/65 12/17/21 18:37 128 H 18 90/61 97 12/17/21 18:03 20 12/17/21 17:56 97.9 F 136 H 18 102/79 97 Intake and Output 12/17/21 12/18/21 12/18/21 22:59 06:59 14:59 Intake Total 51.712 Balance 51.712 Intake: Intake, IV Titration 51.712 Amount Heparin Sod,Pork in 0.45% 51.712 NaCl 25,000 unit In 0.45 % NaCl 1 250ml.bag @ 12 UNITS/KG/HR 8.165 mls/hr IV .Q24H [facility] Rx#: [id number] Other: Voiding Method Toilet Bedside Commode # Voids 1 1 Weight 68.039 kg GENERAL: The patient is alert and oriented x3, not in any acute distress. Well developed, well nourished. HEENT: Pupils are round and equally reacting to light. EOMI. No scleral icterus. No conjunctival pallor. Normocephalic, atraumatic. No pharyngeal erythema. No thyromegaly. CARDIOVASCULAR: S1 and S2 present. No murmurs, rubs, or gallops. -PULMONARY: Chest is tight to auscultation with decreased air entry, no wheezing or crackles. She is on 2 L oxygen via nasal cannula ABDOMEN: Soft, nontender, nondistended, normoactive bowel sounds. No palpable organomegaly. MUSCULOSKELETAL: No joint swelling or deformity. EXTREMITIES: No cyanosis, clubbing, or pedal edema. NEUROLOGICAL: Gross neurological examination did not reveal any focal deficits. SKIN: No rashes. no petechiae. Results CBC & Chem 7: 12/18/21 09:24 12/18/21 09:24 Labs: Abnormal Lab Results - Last 24 Hours (Table) 12/17/21 12/17/21 12/17/21 Range/Units 18:21 18:21 18:21 MCHC (31.0-37.0) g/dL RDW 17.5 H (11.5-15.5) % APTT 20.3 L (22.0-30.0) sec D-Dimer 0.82 H (<0.60) mg/L FEU Creatinine 0.41 L (0.52-1.04) mg/dL Troponin I (0.000-0.034) ng/mL Total Protein 5.6 L (6.3-8.2) g/dL Ur Specific [place] (1.001-1.035) Urine Protein (Negative) Urine Ketones (Negative) Ur Leukocyte Esterase (Negative) Urine Bacteria (None) /hpf Urine Mucus (None) /hpf 12/17/21 12/17/21 12/18/21 Range/Units 18:21 21:49 00:20 MCHC (31.0-37.0) g/dL RDW (11.5-15.5) % APTT (22.0-30.0) sec D-Dimer (<0.60) mg/L FEU Creatinine (0.52-1.04) mg/dL Troponin I 0.900 H* 0.937 H* (0.000-0.034) ng/mL Total Protein (6.3-8.2) g/dL Ur Specific [place] 1.047 H (1.001-1.035) Urine Protein Trace H (Negative) Urine Ketones 1+ H (Negative) Ur Leukocyte Esterase Moderate H (Negative) Urine Bacteria Rare H (None) /hpf Urine Mucus Rare H (None) /hpf 12/18/21 12/18/21 12/18/21 Range/Units 01:58 01:58 01:58 MCHC 30.4 L (31.0-37.0) g/dL RDW 17.9 H (11.5-15.5) % APTT 116.7 H* (22.0-30.0) sec D-Dimer (<0.60) mg/L FEU Creatinine (0.52-1.04) mg/dL Troponin I 0.609 H* (0.000-0.034) ng/mL Total Protein (6.3-8.2) g/dL Ur Specific [place] (1.001-1.035) Urine Protein (Negative) Urine Ketones (Negative) Ur Leukocyte Esterase (Negative) Urine Bacteria (None) /hpf Urine Mucus (None) /hpf Thrombosis Risk Factor Assmnt - Choose All That Apply Any of the Below Risk Factors Present?: Yes Each Factor Represents 1 point: Abnormal pulmonary function (COPD), Obesity (BMI >25) Other Risk Factors: Yes Each Risk Factor Represents 2 Points: Age 61-74 years Other congenital or acquired thrombophilia - If yes, enter type in comment: No Thrombosis Risk Factor Assessment Total Risk Factor Score: 4 Thrombosis Risk Factor Assessment Level: Moderate Risk Assessment and Plan Assessment: Acute asthma exacerbation with elements of COPD exacerbation Occasional mild chest pain and elevated troponin most likely secondary to COPD and hypertension, rule out non-STEMIAlthough felt less likely Abnormal urine analysis suspicious for UTI Hypertension, currently hypotensive on admission, improved patient still tachycardic history of GERD Hyperlipidemia COPD, no acute exacerbation Chronic hypoxic respiratory failure into the time of oxygen per minute History of depression and anxiety Plan: This is a pleasant 76 female presents with Elizabeth STEMI, possible UTI and hypotension Cardiology consult check echocardiogram Continue with heparin drip Continue with normal saline 50 mm/h24 hour Follow-up urine culture Start IV Solu-Medrol 40 mg and Symbicort and bronchodilators. Consult Dr. Smith Labs and medication were reviewed.. Continue same treatment. Continue with symptomatic treatment. Resume home medication. Monitor lytes and vitals. DVT and GI prophylaxis. Further recommendations as per clinical course of the patient DVT prophylaxis: heparin GI Prophylaxis: Pepcid PT/OT: Pending Prognosis is guarded
[2021-12-18] MEDS ORDERED: PROMETHAZINE 25 MG TAB PO PRN (10:51)
[2021-12-18] MEDS: ALPRAZolam 0.25 MG TAB PO PRN ×2 (12:10→21:26)
[2021-12-18] MEDS: methylPREDNISolone SOD SUCCI 40 MG/ML 1 ML VIAL IV SCH ×2 (12:10→21:25)
[2021-12-18] MEDS: SERTRALINE 100 MG TAB PO SCH (12:11)
--- NOTE | 2021-12-18 12:28 | P.CNPUL ---
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 One day prior to coming hospital have mild intermittent chest pain as well. On arrival she was noted to be hypertensive however does improve with small fluid bolus. Chest x-ray suggestive of COPD- like changes, computed tomography scan of his chest negative for PE however COPD mild basal pulmonary fibrosis and some compression fracture were noted in thoracic vertebra. Her labs were CBC within normal limit, d-dimer was elevated 0.82, chemistry within normal limit however troponin noted to be 0.9 which are elevated repeat were 0.93 in 0.6. Her EKG significant for sinus tachycardia with a rate of 127, no ectopy, normal LA and QRS interval and QT interval and nonspecific T-wave changes seen. Influenza A and B as well as RSV and COVID-19 negative, urinalysis positive for ketones and leukocyte esterase trace. Currently patient is being treated with bronchodilators with DuoNeb 4 times a day along with IV Rocephin and heparin drip she has been initiated on IV steroids 40 mg every 8 Review of Systems All systems: negative Past Medical History Past Medical History: Asthma, Chest Pain / Angina, COPD, GERD/Reflux, Hyperl ipidemia, Hypertension, Pneumonia Additional Past Medical History / Comment(s): oxygen NC @2L continuous, gallstones, pernicious anemia History of Any Multi-Drug Resistant Organisms: None Reported Past Surgical History: Hernia Repair, Joint Replacement, Orthopedic Surgery, Tonsillectomy Additional Past Surgical History / Comment(s): left elbow surgery, abscess in stomach area, abdominial scar tissue, tamie oophorectomy, left knee surgery, left hip replacement Past Anesthesia/Blood Transfusion Reactions: No Reported Reaction Past Psychological History: Anxiety, Depression Smoking Status: Former smoker Past Alcohol Use History: None Reported Additional Past Alcohol Use History / Comment(s): quit smoking 2001, smoked since age 18, 2 PPD Past Drug Use History: None Reported - Past Family History Mother Family Medical History: No Reported History Additional Family Medical History / Comment(s): MS Father Family Medical History: CVA/TIA, Myocardial Infarction ([place]) Additional Family Medical History / Comment(s): ETOH Medications and Allergies Home Medications Medication Instructions Recorded Confirmed Type Simvastatin [Zocor] 40 mg PO HS 02/20/15 12/17/21 History Diltiazem Cd [Cardizem CD] 240 mg PO DAILY 03/01/16 12/17/21 History Montelukast Sodium [Singulair] 10 mg PO HS 03/01/16 12/17/21 History Albuterol Sulfate [Ventolin HFA] 2 puff INHALATION RT-Q4H PRN 06/20/21 12/17/21 History Ipratropium/Albuterol Sulfate 1 puff INHALATION RT-QID 06/20/21 12/17/21 History [Combivent Respimat Inhaler] Omeprazole 20 mg PO DAILY 06/20/21 12/17/21 History Sertraline [Zoloft] 200 mg PO DAILY 06/20/21 12/17/21 History lisinopriL [Zestril] 20 mg PO DAILY 06/20/21 12/17/21 History ALPRAZolam [Xanax] 0.5 mg PO TID 11/08/21 12/17/21 History Acetaminophen [Tylenol Extra 1,000 mg PO Q6H PRN 11/08/21 12/17/21 History Strength] Ondansetron [Zofran] 4 mg PO Q8HR PRN 11/08/21 12/17/21 History Allergies Allergy/AdvReac Type Severity Reaction Status Date / Time No Known Allergies Allergy Verified 12/17/21 18:50 Physical Exam Vitals: Vital Signs Temp Pulse Pulse Resp BP BP Pulse Ox 12/18/21 12:06 100 12/18/21 08:35 90 12/18/21 08:27 74 12/18/21 08:26 98 12/18/21 08:00 98.1 F 96 18 109/64 98 12/18/21 04:00 92 18 103/62 99 12/18/21 02:00 125 H 20 12/17/21 23:19 98.2 F 126 H 20 113/76 95 12/17/21 22:41 98.2 F 126 H 22 113/76 95 12/17/21 22:00 97.9 F 92 16 88/58 98 12/17/21 20:00 93 17 85/69 96 12/17/21 19:03 117 H 89/65 12/17/21 18:37 128 H 18 90/61 97 12/17/21 18:03 20 12/17/21 17:56 97.9 F 136 H 18 102/79 97 Intake and Output 12/17/21 12/18/21 12/18/21 22:59 06:59 14:59 Intake Total 51.712 Balance 51.712 Intake: Intake, IV Titration 51.712 Amount Heparin Sod,Pork in 0.45% 51.712 NaCl 25,000 unit In 0.45 % NaCl 1 250ml.bag @ 12 UNITS/KG/HR 8.165 mls/hr IV .Q24H [facility] Rx#: [id number] Other: Voiding Method Toilet Bedside Commode # Voids 1 1 Weight 68.039 kg - Constitutional General appearance: average body habitus, cooperative, disheveled, mild distress - EENT Eyes: EOMI, PERRLA ENT: normal oropharynx - Neck Carotids: negative: upstroke normal Thyroid: negative: normal size - Respiratory Respiratory: bilateral: diminished - Cardiovascular Rhythm: regular Heart sounds: normal: S1, S2 - Gastrointestinal General gastrointestinal: normal bowel sounds, soft - Integumentary Integumentary: normal turgor - Neurologic Neurologic: CNII-XII intact - Musculoskeletal Musculoskeletal: gait normal, generalized weakness, strength equal bilaterally - Psychiatric Psychiatric: A&O x's 3, appropriate affect, intact judgment & insight Results - Laboratory Findings CBC and BMP: 12/18/21 09:24 12/18/21 09:24 PT/INR, D-dimer PT 11.1 sec (9.0-12.0) 12/18/21 01:58 INR 1.0 (<1.2) 12/18/21 01:58 D-Dimer 0.82 mg/L FEU (<0.60) H 12/17/21 18:21 Abnormal lab findings: Abnormal Labs 12/17/21 12/17/21 12/17/21 18:21 18:21 18:21 MCHC RDW 17.5 H APTT 20.3 L D-Dimer 0.82 H BUN Creatinine 0.41 L Glucose Calcium Troponin I Total Protein 5.6 L Albumin Ur Specific Gazelle Urine Protein Urine Ketones Ur Leukocyte Esterase Urine Bacteria Urine Mucus 12/17/21 12/17/21 12/18/21 18:21 21:49 00:20 MCHC RDW APTT D-Dimer BUN Creatinine Glucose Calcium Troponin I 0.900 H* 0.937 H* Total Protein Albumin Ur Specific Gazelle 1.047 H Urine Protein Trace H Urine Ketones 1+ H Ur Leukocyte Esterase Moderate H Urine Bacteria Rare H Urine Mucus Rare H 12/18/21 12/18/21 12/18/21 01:58 01:58 01:58 MCHC 30.4 L RDW 17.9 H APTT 116.7 H* D-Dimer BUN Creatinine Glucose Calcium Troponin I 0.609 H* Total Protein Albumin Ur Specific Gazelle Urine Protein Urine Ketones Ur Leukocyte Esterase Urine Bacteria Urine Mucus 12/18/21 12/18/21 12/18/21 09:24 09:24 09:24 MCHC 30.2 L RDW 17.5 H APTT 34.1 H D-Dimer BUN 6 L Creatinine 0.44 L Glucose 62 L Calcium 8.3 L Troponin I Total Protein 4.7 L Albumin 2.9 L Ur Specific Gazelle Urine Protein Urine Ketones Ur Leukocyte Esterase Urine Bacteria Urine Mucus - Diagnostic Findings Chest x-ray: report reviewed, image reviewed CT scan - chest: report reviewed, image reviewed (As noted above) Assessment and Plan Assessment: Acute COPD exacerbation Acute on chronic hypoxic respiratory failure Likely non-STEMI with elevated troponin UTI Prior history of dyslipidemia and GERD COPD Prior history of depression and anxiety Plan: IV steroids Breathing treatments Broad-spectrum antibiotics Continue oxygen Continue heparin Continue aspirin Awaiting further evaluation from cardiovascular services Further plan of care as per clinical response of patient Time with Patient: Greater than 30
--- NOTE | 2021-12-18 15:00 | P.CRDCN ---
History of Present Illness Consult date: 12/18/21 History of present illness: Patient has a known history of hyperlipidemia, hypertension, asthma, COPD on home oxygen, and anemia who presented to the ER with increased shortness of breath weakness. We have been consulted to see the patient for elevated troponin. Patient presented with shortness of breath nausea weakness and intermittent chest pain. when EMS picked her up she was found to be hypotensive and received one dose of epinephrine. Her troponins were 0.9, 0.93, 0.6. Patient's EKG showed sinus rhythm with ischemic changes. BNP was 4890, d-dimer was positive. Chest x-ray was negative for acute cardiopulmonary process CT was negative for PE and showed COPD. patient seen Dr. Allen in the past. She underwent a cardiac catheterization in 2017 which showed normal coronary arteries. Will obtain a 2-D echocardiogram. Will continue with heparin drip. Will start Toprol-XL 25 mg daily continue with atorvastatin. Once patient's respiratory status improves recommend patient undergo cardiac catheterization. Review of Systems REVIEW OF SYSTEMS At the time of my exam: CONSTITUTIONAL: Denies fever or chills. EYES: Negative for vision changes ENT: Negative for hearing loss CARDIOVASCULAR: Denies chest pain, shortness of breath, diaphoresis, orthopnea, PND or palpitations. VASCULAR: Denies edema RESPIRATORY: Denies cough. Complaints of shortness of breath GASTROINTESTINAL: Denies abdominal pain, diarrhea, constipation, nausea or vomiting. MUSCULOSKELETAL: Denies myalgias. NEUROLOGIC: Denies numbness, tingling, headache or weakness. ENDOCRINE: Denies fatigue, weight change, polydipsia or polyurina. GENITOURINARY: Denies burning, hematuria or urgency with micturation. HEMATOLOGIC: Denies history of anemia or bleeding. DERMATOLOGY: Denies rash or skin sores PSYCH: Negative for depression or hallucinations. Past Medical History Past Medical History: Asthma, Chest Pain / Angina, COPD, GERD/Reflux, Hyperlipidemia, Hypertension, Pneumonia Additional Past Medical History / Comment(s): oxygen NC @2L continuous, gallstones, pernicious anemia History of Any Multi-Drug Resistant Organisms: None Reported Past Surgical History: Hernia Repair, Joint Replacement, Orthopedic Surgery, Tonsillectomy Additional Past Surgical History / Comment(s): left elbow surgery, abscess in s tomach area, abdominial scar tissue, tamie oophorectomy, left knee surgery, left hip replacement Past Anesthesia/Blood Transfusion Reactions: No Reported Reaction Past Psychological History: Anxiety, Depression Smoking Status: Former smoker Past Alcohol Use History: None Reported Additional Past Alcohol Use History / Comment(s): quit smoking 2001, smoked since age 18, 2 PPD Past Drug Use History: None Reported - Past Family History Mother Family Medical History: No Reported History Additional Family Medical History / Comment(s): MS Father Family Medical History: CVA/TIA, Myocardial Infarction ([place]) Additional Family Medical History / Comment(s): ETOH Medications and Allergies Home Medications Medication Instructions Recorded Confirmed Type Simvastatin [Zocor] 40 mg PO HS 02/20/15 12/17/21 History Diltiazem Cd [Cardizem CD] 240 mg PO DAILY 03/01/16 12/17/21 History Montelukast Sodium [Singulair] 10 mg PO HS 03/01/16 12/17/21 History Albuterol Sulfate [Ventolin HFA] 2 puff INHALATION RT-Q4H PRN 06/20/21 12/17/21 History Ipratropium/Albuterol Sulfate 1 puff INHALATION RT-QID 06/20/21 12/17/21 History [Combivent Respimat Inhaler] Omeprazole 20 mg PO DAILY 06/20/21 12/17/21 History Sertraline [Zoloft] 200 mg PO DAILY 06/20/21 12/17/21 History lisinopriL [Zestril] 20 mg PO DAILY 06/20/21 12/17/21 History ALPRAZolam [Xanax] 0.5 mg PO TID 11/08/21 12/17/21 History Acetaminophen [Tylenol Extra 1,000 mg PO Q6H PRN 11/08/21 12/17/21 History Strength] Ondansetron [Zofran] 4 mg PO Q8HR PRN 11/08/21 12/17/21 History Allergies Allergy/AdvReac Type Severity Reaction Status Date / Time No Known Allergies Allergy Verified 12/17/21 18:50 Physical Exam Vitals: Vital Signs Temp Pulse Pulse Resp BP BP Pulse Ox 12/18/21 12:46 104 H 18 12/18/21 12:20 100 12/18/21 12:06 100 12/18/21 12:00 97.9 F 104 H 18 122/70 98 10/23/22 08:35 90 12/18/21 08:27 74 12/18/21 08:26 98 12/18/21 08:00 98.1 F 96 18 109/64 98 12/18/21 04:00 92 18 103/62 99 12/18/21 02:00 125 H 20 12/17/21 23:19 98.2 F 126 H 20 113/76 95 12/17/21 22:41 98.2 F 126 H 22 113/76 95 12/17/21 22:00 97.9 F 92 16 88/58 98 12/17/21 20:00 93 17 85/69 96 12/17/21 19:03 117 H 89/65 12/17/21 18:37 128 H 18 90/61 97 12/17/21 18:03 20 12/17/21 17:56 97.9 F 136 H 18 102/79 97 Intake and Output 12/17/21 12/18/21 12/18/21 22:59 06:59 14:59 Intake Total 51.712 51.135 Balance 51.712 51.135 Intake: Intake, IV Titration 51.712 51.135 Amount Heparin Sod,Pork in 0.45% 51.712 51.135 NaCl 25,000 unit In 0.45 % NaCl 1 250ml.bag @ 12 UNITS/KG/HR 8.165 mls/hr IV .Q24H [facility] Rx#: [id number] Other: Voiding Method Toilet Bedside Commode # Voids 1 1 Weight 68.039 kg General: The patient is awake and alert, in no distress, and does not appear acutely ill. Skin: Skin is warm and dry and no rashes or lesions are noted. Eye: Pupils are equal, round and reactive to light, extra-ocular movements are intact; there is normal conjunctiva bilaterally. Ears, nose, mouth and throat: There are moist mucous membranes and no oral lesions. Neck: The neck is supple, there is no tenderness or JVD. Cardiovascular: There is irregular regular rate and rhythm. No murmur, rub or gallop is appreciated. Respiratory: Lungs are clear to auscultation, respirations are non-labored, breath sounds are equal. Gastrointestinal: Soft, non-distended, non-tender abdomen without masses or organomegaly noted. There is no rebound or guarding present. Bowel sounds are unremarkable. Back: There is no tenderness to palpation in the midline. There is no obvious deformity. Musculoskeletal: Normal ROM, no tenderness, There is no pedal edema. There is no calf tenderness or swelling. Extremities: Mild bilateral pitting edema Vascular: Femoral pulse is normal. Posterior tibial pulses are normal .Dorsalis pedis is palpable. Neurological: CN II-XII intact. There are no obvious motor or sensory deficits. Speech is normal. Psychiatric: Cooperative, appropriate mood & affect, normal judgment Results 12/18/21 09:24 12/18/21 09:24 Cardiac Enzymes 12/17/21 12/17/21 12/17/21 Range/Units 18:21 18:21 21:49 AST 25 (14-36) U/L Troponin I 0.900 H* 0.937 H* (0.000-0.034) ng/mL 12/18/21 12/18/21 Range/Units 01:58 09:24 AST 22 (14-36) U/L Troponin I 0.609 H* (0.000-0.034) ng/mL Coagulation 12/17/21 12/18/21 12/18/21 Range/Units 18:21 01:58 09:24 PT 10.6 11.1 (9.0-12.0) sec APTT 20.3 L 116.7 H* 34.1 H (22.0-30.0) sec CBC 12/17/21 12/18/21 12/18/21 Range/Units 18:21 01:58 09:24 WBC 5.2 4.4 4.6 (3.8-10.6) k/uL RBC 4.79 4.38 4.62 (3.80-5.40) m/uL Hgb 12.8 11.4 12.1 (11.4-16.0) gm/dL Hct 40.6 37.5 40.2 (34.0-46.0) % Plt Count 266 252 243 (150-450) k/uL Comprehensive Metabolic Panel 12/17/21 12/18/21 Range/Units 18:21 09:24 Sodium 138 138 (137-145) mmol/L Potassium 4.0 3.7 (3.5-5.1) mmol/L Chloride 98 102 (98-107) mmol/L Carbon Dioxide 29 27 (22-30) mmol/L BUN 8 6 L (7-17) mg/dL Creatinine 0.41 L 0.44 L (0.52-1.04) mg/dL Glucose 91 62 L (74-99) mg/dL Calcium 8.7 8.3 L (8.4-10.2) mg/dL AST 25 22 (14-36) U/L ALT 12 11 (4-34) U/L Alkaline Phosphatase 70 61 (38-126) U/L Total Protein 5.6 L 4.7 L (6.3-8.2) g/dL Albumin 3.5 2.9 L (3.5-5.0) g/dL Current Medications Generic Name Dose Route Start Last Admin Trade Name Freq PRN Reason Stop Dose Admin Albuterol/Ipratropium 3 ml 12/18/21 08:00 12/18/21 12:06 Ipratropium-Albuterol 3 Ml Neb INHALATION 3 ml RT-Q6H ROMIE Administration Alprazolam 0.25 mg 12/18/21 10:51 12/18/21 12:10 Alprazolam 0.25 Mg Tab PO 0.25 mg BID PRN Administration Anxiety Atorvastatin Calcium 20 mg 12/18/21 21:00 Atorvastatin 20 Mg Tab PO HS ROMIE Budesonide/Formoterol Fumarate 2 puff 12/18/21 20:00 Symbicort 160-4.5 Mcg Inhaler INHALATION RT-BID ROMIE Heparin Sodium (Porcine) 0 unit 12/17/21 19:54 Heparin Sodium 1,000 Un/Ml (10ml Vl) IV PER PROTOCOL PRN Low PTT Protocol Heparin Sodium/Sodium Chloride 250 mls @ 8.165 mls/hr 12/17/21 20:00 12/18/21 12:15 25,000 unit/ Sodium Chloride IV 11 units/kg/hr .Q24H ROMIE 7.484 mls/hr Titration Protocol 12 UNITS/KG/HR Sodium Chloride 1,000 mls @ 50 mls/hr 12/18/21 01:30 12/18/21 01:36 Saline 0.9% IV 12/19/21 01:31 75 mls/hr .Q20H ROMIE Administration Ceftriaxone Sodium 1 gm/ 50 mls @ 100 mls/hr 12/18/21 10:30 12/18/21 12:10 Sodium Chloride IVPB 100 mls/hr Q24HR ROMIE Administration Protocol Methylprednisolone Sodium Succinate 40 mg 12/18/21 11:00 12/18/21 12:10 Methylprednisolone Sod Succi 40 Mg/Ml 1 Ml Vial IV 40 mg Q8H ROMIE Administration Montelukast Sodium 10 mg 12/18/21 21:00 Montelukast 10 Mg Tab PO HS ROMIE Ondansetron HCl 4 mg 12/18/21 09:17 12/18/21 14:00 Ondansetron 4 Mg/2 Ml Vial IVP 4 mg Q6HR PRN Administration Nausea And Vomiting Pantoprazole Sodium 40 mg 12/18/21 07:30 12/18/21 06:37 Pantoprazole 40 Mg Tablet PO 40 mg [id number] ROMIE Administration Promethazine HCl 12.5 mg 12/18/21 10:51 12/18/21 14:00 Promethazine 25 Mg Tab PO 12.5 mg Q6HR PRN Administration Nausea Sertraline HCl 200 mg 12/18/21 09:00 12/18/21 12:11 Sertraline 100 Mg Tab PO 200 mg DAILY ROMIE Administration Intake and Output 12/17/21 12/18/21 12/18/21 22:59 06:59 14:59 Intake Total 51.712 51.135 Balance 51.712 51.135 Intake: Intake, IV Titration 51.712 51.135 Amount Heparin Sod,Pork in 0.45% 51.712 51.135 NaCl 25,000 unit In 0.45 % NaCl 1 250ml.bag @ 12 UNITS/KG/HR 8.165 mls/hr IV .Q24H [facility] Rx#: [id number] Other: Voiding Method Toilet Bedside Commode # Voids 1 1 Weight 68.039 kg 12/18/21 09:24 12/18/21 09:24 Assessment and Plan Assessment: Non-STEMI Positive troponins rule out ACS Plan: Obtain a 2-D echocardiogram Continue with heparin drip Start Toprol XL 25 mg daily Continue with all other current cardiac medications Once respiratory status improves recommend patient undergo cardiac catheterization to rule out ischemic changes Further recommendations based on clinical course The above impression and plan of care have been discussed and directed by the signing physician. Glo Butler, nurse practitioner, acting as scribe for signing physician.
[2021-12-18] MEDS: SYMBICORT 160-4.5 MCG INHALER INHALATION SCH (20:07)
[2021-12-18] MEDS: HEPARIN SOD,PORK IN 0.45% NACL 25,000 UNIT in 0.45% NACL 1 250ML.BAG IV SCH (21:20)
[2021-12-18] MEDS: MONTELUKAST 10 MG TAB PO SCH (21:26)
[2021-12-18] MEDS: ATORVASTATIN 20 MG TAB PO SCH (21:26)
[2021-12-19] MEDS: HEPARIN SOD,PORK IN 0.45% NACL 25,000 UNIT in 0.45% NACL 1 250ML.BAG IV SCH (01:01)
[2021-12-19] MEDS: IPRATROPIUM-ALBUTEROL 3 ML NEB INHALATION SCH ×4 (02:58→19:40)
[2021-12-19] MEDS: methylPREDNISolone SOD SUCCI 40 MG/ML 1 ML VIAL IV SCH ×3 (04:21→21:03)
[2021-12-19] MEDS: PANTOPRAZOLE 40 MG TABLET PO SCH (06:27)
[2021-12-19] MEDS: SYMBICORT 160-4.5 MCG INHALER INHALATION SCH ×2 (07:39→19:40)
[2021-12-19] MEDS: ASPIRIN 81 MG PO SCH (09:57)
[2021-12-19] MEDS: SERTRALINE 100 MG TAB PO SCH (09:57)
[2021-12-19] MEDS: ALPRAZolam 0.25 MG TAB PO PRN ×2 (11:22→19:28)
[2021-12-19] MEDS ORDERED: DILTIAZEM CD 240 MG CAP.ER.24H PO SCH (11:30)
--- NOTE | 2021-12-19 12:34 | P.PN ---
Subjective This is a 76-year-old female with a past medical history of asthma, COPD on home oxygen, GERD, hypertension, dyslipidemia. She follows in the office with Dr. Allen. We've been asked to see in consultation for elevated troponin. Patient presents emergency department with complaints of shortness of breath, nausea, weakness, intermittent chest pain, generalized weakness, unsteady gait. Her troponins were 0.9, 0.93, 0.6. Patient's EKG showed sinus rhythm with ischemic changes. BNP was 4890, d-dimer was positive. CT was negative for PE. She underwent a cardiac catheterization in 2017 which showed normal coronary arteries. Patient seen and examined at bedside, no acute distress. She states her chest discomfort has improved. She denies any worsening shortness of breath. Denies any palpitations, lightheadedness or dizziness. Her vital signs are stable. Heart rate in the 70s80s, sinus rhythm. 2-D echocardiogram is pending. GENERAL: Well-appearing, well-nourished and in no acute distress. NECK: Supple without JVD or thyromegaly. LUNGS: Breath sounds clear to auscultation bilaterally. Respiration equal and unlabored. No wheezes, rales or rhonchi. HEART: Regular rate and rhythm without murmurs, rubs or gallops. S1 and S2 hea rd. EXTREMITIES: Normal range of motion, no edema. No clubbing or cyanosis. Peripheral pulses intact. ASSESSMENT Elevated troponin Symptoms of intermittent chest discomfort, shortness of breath, nausea, generalized weakness Asthma COPD GERD Hypertension Dyslipidemia Normal coronary arteries on cardiac catheterization in 2017 PLAN Continue IV heparin drip Obtain 2-D echocardiogram to assess for wall motion abnormalities and LV systolic function Continue aspirin, statin, Cardizem Hold lisinopril secondary to hypotension Further recommendations based on clinical course Nurse Practitioner note has been reviewed, I agree with a documented findings and plan of care. Patient was seen and examined. Objective - Vital Signs Vital signs: Vital Signs Temp 98.1 F 12/19/21 04:00 Pulse 83 12/19/21 07:50 Resp 16 12/19/21 04:00 BP 100/57 12/19/21 04:00 Pulse Ox 98 12/19/21 07:41 FiO2 Intake & Output 12/18/21 12/19/21 12/19/21 18:59 06:59 18:59 Intake Total 51.135 95.546 Output Total 400 Balance 51.135 -304.454 Intake: Intake, IV Titration 51.135 95.546 Amount Heparin Sod,Pork in 0.45% 51.135 95.546 NaCl 25,000 unit In 0.45 % NaCl 1 250ml.bag @ 12 UNITS/KG/HR 8.165 mls/hr IV .Q24H [facility] Rx#: [id number] Output: Urine 400 Other: Voiding Method Toilet Bedside Commode # Voids 1 - Labs CBC & Chem 7: 12/18/21 09:24 12/18/21 09:24 Labs: Abnormal Lab Results - Last 24 Hours (Table) 12/18/21 12/18/21 12/18/21 Range/Units 09:24 09:24 09:24 MCHC 30.2 L (31.0-37.0) g/dL RDW 17.5 H (11.5-15.5) % APTT 34.1 H (22.0-30.0) sec BUN 6 L (7-17) mg/dL Creatinine 0.44 L (0.52-1.04) mg/dL Glucose 62 L (74-99) mg/dL Calcium 8.3 L (8.4-10.2) mg/dL Total Protein 4.7 L (6.3-8.2) g/dL Albumin 2.9 L (3.5-5.0) g/dL 12/18/21 Range/Units 17:32 MCHC (31.0-37.0) g/dL RDW (11.5-15.5) % APTT 43.9 H (22.0-30.0) sec BUN (7-17) mg/dL Creatinine (0.52-1.04) mg/dL Glucose (74-99) mg/dL Calcium (8.4-10.2) mg/dL Total Protein (6.3-8.2) g/dL Albumin (3.5-5.0) g/dL
--- NOTE | 2021-12-19 12:48 | CA ---
Transthoracic Echo Report Name: Cesia Fried Age: 76 Gender: F : 1945 Exam Date: 12/19/2021 09:04 Exam Location: [facility] Ht (in): 63 Wt (lb): 150 Ordering Physician: Haim Mederos MD Attending/Referring Phys: [id number], [place] Supervisor Sharda Moreira, [facility] Procedure CPT: Indications: nstemi Cardiac Hx: Technical Quality: Fair Contrast 1: Total Dose (mL): Contrast 2: Total Dose (mL): MEASUREMENTS (Male / Female) Normal Values M-MODE Aortic Root Diameter MM 3.0 cm AV Cusp Separation MM 1.3 cm DOPPLER AV Peak Velocity 165.6 cm/s AV Peak Gradient 11.0 mmHg MV Area PHT 9.9 cm??? Mitral E Point Velocity 118.7 cm/s Mitral A Point Velocity 39.2 cm/s Mitral E to A Ratio 3.0 MV Deceleration Time 76.6 ms MV E' Velocity 11.9 cm/s Mitral E to MV E' Ratio 10.0 FINDINGS Left Ventricle Left ventricular ejection fraction is estimated at 20-25 %. Severely reduced global left ventricular systolic function. Right Ventricle Right ventricle not well visualized. Unable to estimate the right ventricular systolic pressure. Right Atrium Right atrium not well visualized. Left Atrium Normal left atrial size. Mitral Valve Mitral annular calcification. Trace mitral regurgitation. Aortic Valve Focal thickening of the aortic valve cusps. No aortic valve stenosis or regurgitation. Tricuspid Valve Structurally normal tricuspid valve. Pulmonic Valve Structurally normal pulmonic valve. Pericardium Small pericardial effusion. Aorta Normal size aortic root and proximal ascending aorta. CONCLUSIONS Severe LV dysfunction Only the basal section of the left ventricle seems to be josselin Previewed by: Dr. Sai Carter MD (Electronically Signed) Final Date: 19 December 2021 12:46
[2021-12-19] MEDS ORDERED: METOPROLOL TARTRATE 5 MG/5 ML VIAL IVP ONE (13:05)
[2021-12-19] MEDS ORDERED: ADENOSINE 3 MG/ML 2 ML VIAL IVP ONE (13:06)
[2021-12-19] MEDS: ONDANSETRON 4 MG/2 ML VIAL IVP PRN (13:21)
[2021-12-19] MEDS ORDERED: NITROGLYCERIN SL TABS 0.4 MG TAB SUBLINGUAL PRN (13:23)
--- NOTE | 2021-12-19 15:40 | P.PN ---
Subjective This is a pleasant 76 years old female with multiple medical problems as below. Patient states that she presents because of weakness and dyspnea for about a week, yesterday become more severe and she got hit by profound super weakness and more shortness of breath associated with dizziness and nausea. Therefore she decided to come to emergency room. She had mild chest pain or discomfort about 1-2/10 in severity which is nonspecific. Patient still complains from chest tightness,. She uses 2 L of oxygen at home, she has a patent all the times. She smoked since age 18 total 30s, by her mid 30s years of age she started having asthma/COPD Her supply chain consultant is Dr. Gonzalez before we consult consult after only Pt initially hypotensive with SBP of 80. Pt given 500 ml 0.9 bolus and it brought pts BP to 94 SBP. EMS then gave 10 mcg of epi which improved BP to 150/90s. Overnight patient became tachycardic so started her on normal saline 75 mL/h, her tachycardia improved today. Because of her dehydration will give her 50 mL/h 24 hours. Patient is tachycardic with heart rate 120s and tachypneic at 20-22 Labs showing unremarkable CBC with normal WBC of 4.4. INR 1.0. D-dimer 0.8. BMP is unremarkable including liver enzymes. Troponin is elevated at 0.92. Urine analysis looks like concentrated sample but has 1+ ketones and moderate leukocytes esterase. Viruses are not detected including influenza, Covid, RSV CT of the chest with contrast, no evidence of pulmonary embolism. There is evidence of COPD and mild pulmonary fibrosis. Minimal thoracic compression fracture are stable compared to old exam. Chest x-ray no active cardiopulmonary disease. AV started on heparin drip and aspirin 1. Also started on normal saline 75 mL/h 12/19/2021 Patient respiratory status improved patient probably will undergo cardiac catheterization tomorrow. Constitutional: Denied any fatigue denied any fever. Cardio vascular: denied any chest pain, palpitations Gastrointestinal denied any nausea vomiting Pulmonary: Denied any shortness of breath cough Neurologic denied any new focal deficits All inpatient medications were reviewed and appropriate changes in these medications as dictated in the interval history and assessment and plan. PHYSICAL EXAMINATION: GENERAL: The patient is alert and oriented x3, not in any acute distress. Well d eveloped, well nourished. HEENT: Pupils are round and equally reacting to light. EOMI. No scleral icterus. No conjunctival pallor. Normocephalic, atraumatic. No pharyngeal erythema. No thyromegaly. CARDIOVASCULAR: S1 and S2 present. No murmurs, rubs, or gallops. PULMONARY: Chest is clear to auscultation, no wheezing or crackles. ABDOMEN: Soft, nontender, nondistended, normoactive bowel sounds. No palpable organomegaly. MUSCULOSKELETAL: No joint swelling or deformity. EXTREMITIES: No cyanosis, clubbing, or pedal edema. NEUROLOGICAL: Gross neurological examination did not reveal any focal deficits. SKIN: No rashes. Assessment and Plan Assessment: Acute asthma exacerbation with elements of COPD exacerbation continue with systemic steroids inhalational treatments. Occasional mild chest pain and elevated troponin most likely secondary to COPD and hypertension, rule out non-STEMIAlthough felt less likely or possibly of cardiac catheterization tomorrow Asymptomatic bacteriuria Hypertension, patient was hypotensive on admission history of GERD Hyperlipidemia COPD, no acute exacerbation Chronic hypoxic respiratory failure into the time of oxygen per minute History of depression and anxiety Objective - Vital Signs Vital signs: Vital Signs Temp 98.1 F 12/19/21 04:00 Pulse 107 H 12/19/21 12:04 Resp 16 12/19/21 04:00 BP 100/57 12/19/21 04:00 Pulse Ox 98 12/19/21 07:41 FiO2 Intake & Output 12/18/21 12/19/21 12/19/21 18:59 06:59 18:59 Intake Total 51.135 95.546 196.208 Output Total 400 Balance 51.135 -304.454 196.208 Intake: Intake, IV Titration 51.135 95.546 78.208 Amount Heparin Sod,Pork in 0.45% 51.135 95.546 78.208 NaCl 25,000 unit In 0.45 % NaCl 1 250ml.bag @ 12 UNITS/KG/HR 8.165 mls/hr IV .Q24H ROMIE Rx#: [id number] Oral 118 Output: Urine 400 Other: Voiding Method Toilet Bedside Commode # Voids 1 - Labs CBC & Chem 7: 12/18/21 09:24 12/18/21 09:24 Labs: Abnormal Lab Results - Last 24 Hours (Table) 12/18/21 Range/Units 17:32 APTT 43.9 H (22.0-30.0) sec
[2021-12-19] MEDS: METOPROLOL SUCCINATE (ER) 25 MG TAB.ER.24H PO SCH (17:00)
[2021-12-19] MEDS: ATORVASTATIN 20 MG TAB PO SCH (21:03)
[2021-12-19] MEDS: MONTELUKAST 10 MG TAB PO SCH (21:03)
[2021-12-20] MEDS ORDERED: SODIUM CHLORIDE 0.9% 1,000 ML in EMPTY BAG 1 BAG IV ONE
[2021-12-20] MEDS: ALPRAZolam 0.5 MG TAB PO PRN ×3 (03:33→18:33)
[2021-12-20] MEDS: IPRATROPIUM-ALBUTEROL 3 ML NEB INHALATION SCH ×4 (03:52→19:49)
[2021-12-20] MEDS: PANTOPRAZOLE 40 MG TABLET PO SCH (06:13)
[2021-12-20] MEDS ORDERED: HEPARIN SODIUM,PORCINE 10,000 UNIT in SODIUM CHLORIDE 0.9% 1,000 ML IRRIGATION PRN (07:00)
[2021-12-20] MEDS ORDERED: HEPARIN SODIUM,PORCINE 2,500 UNIT in SODIUM CHLORIDE 0.9% 250 ML IRRIGATION PRN (07:00)
[2021-12-20] MEDS: SYMBICORT 160-4.5 MCG INHALER INHALATION SCH ×2 (07:54→19:50)
[2021-12-20 09:00] LABS: Anisocytosis Slight; Basophils % (A) 0 %; Eosinophils % (A) 1 %; HCT 38.4 % (34.0-46.0); HGB 11.6 gm/dL (11.4-16.0); Hypochromasia Marked; Lymphocytes # (A) 0.8 k/uL (1.0-4.8); Lymphocytes % (A) 17 %; MCH 25.6 pg (25.0-35.0); MCHC 30.1 g/dL (31.0-37.0); MCV 85.1 fL (80.0-100.0); Mean Platelet Volume 9.1; Monocytes # (A) 0.2 k/uL (0-1.0); Monocytes % (A) 5 %; Neutrophils # (A) 3.6 k/uL (1.3-7.7); Neutrophils % (A) 77 %; Platelet Count 254 k/uL (150-450); RBC 4.52 m/uL (3.80-5.40); RDW 17.5 % (11.5-15.5); WBC 4.7 k/uL (3.8-10.6)
[2021-12-20] MEDS ORDERED: DILTIAZEM CD 240 MG CAP.ER.24H PO SCH (09:00)
[2021-12-20] MEDS ORDERED: ASPIRIN 325 MG TAB PO STA (09:05)
[2021-12-20 09:24] LABS: African American GFR (CKD) >90 (>60 ml/min/1.73 sqM); Anion Gap 5 mmol/L; Blood Urea Nitrogen 14 mg/dL (7-17); Calcium 8.7 mg/dL (8.4-10.2); Carbon Dioxide 35 mmol/L (22-30); Chloride 98 mmol/L (98-107); Glucose 110 mg/dL (74-99); Non-African American GFR(CKD) >90 (>60 ml/min/1.73 sqM); Potassium 3.7 mmol/L (3.5-5.1); Sodium 138 mmol/L (137-145)
[2021-12-20] MEDS: methylPREDNISolone SOD SUCCI 40 MG/ML 1 ML VIAL IV SCH ×2 (09:53→20:05)
[2021-12-20] MEDS ORDERED: VERAPAMIL 2.5 MG/ML 2 ML AMP ONE (10:53)
[2021-12-20] MEDS ORDERED: MIDAZOLAM 2 MG/2 ML VIAL IV ONE (10:58)
[2021-12-20] MEDS ORDERED: LIDOCAINE 1% INJ 10MG/ML (30 ML VIAL-PF) SQ ONE (11:01)
[2021-12-20] MEDS ORDERED: VERAPAMIL SYRINGE (5 MG/10 ML) INTRAARTER ONE (11:02)
[2021-12-20] MEDS: ASPIRIN 81 MG PO SCH (11:07)
[2021-12-20] MEDS ORDERED: HEPARIN SODIUM 1,000 UN/ML (10ML VL) IV ONE (11:08)
[2021-12-20] MEDS ORDERED: SODIUM CHLORIDE 0.9% 1,000 ML IV ONE (11:09)
[2021-12-20] MEDS ORDERED: IOPAMIDOL-370 125ML BTL INJ ONE (11:13)
[2021-12-20] MEDS ORDERED: RX INFO: IV CONTRAST WAS GIVEN 1 EACH MISC MISCELLANE PRN (11:22)
--- NOTE | 2021-12-20 11:25 | P.PCN ---
Date of Procedure: 12/20/21 Operative Findings: CARDIAC CATHETERIZATION PERFORMING PHYSICIAN: Grayson Allen MD, RPVI PROCEDURE PERFORMED: 1. Selective right and left coronary angiogram 2. Left heart catheterization INDICATION: This is a 76-year-old female patient with a past medical history significant for hypertension and dyslipidemia who was admitted to the hospital with increasing shortness of breath. She underwent a workup includes troponin came in to be abnormal with an echo was performed and showed cardiomyopathy with wall motion abnormalities concerning for severe underlying coronary artery disease COMPLICATION: None APPROACH: Right radial artery LEVEL OF SEDATION: Moderate with a sedation length of 16 minutes PROCEDURE DESCRIPTION: After obtaining an informed consent, the patient was brought to cardiac golf course laborer. Local anesthesia was performed using lidocaine subcutaneously. The right radial artery was cannulated using Seldinger technique, the guidewire passed easily, following that we advanced a 5-Sammarinese sheath dilator assembly, the wire and dilator were removed and sheath was flushed. Following that, 2 mg of verapamil along with 5000 unit heparin were given. Selective right and left coronary angiogram using a 6-Sammarinese JR4 and JL 3.5 catheters. Following that we did left heart catheterization using 6-Sammarinese pigtail catheter. The procedure was completed there was no complication. SELECTIVE CORONARY ANGIOGRAM: The right coronary artery: Large caliber vessel and its a dominant vessel. Its angiographically normal distally bifurcates into PDA and PLV branches both appeared to be angiog raphically normal Left main: Is angiographically normal but short left main. Bifurcates into LCx and LAD The left circumflex: Large caliber vessel nondominant vessel. Its angiographically normal and gives rise into a large OM branch which appeared to be angiographically normal The left anterior descending artery: Is angiographically normal. Gives rise into a large diagonal which appeared to be angiographically normal HEMODYNAMICS: The LVEDP was 18 mmHg was no significant gradient across aortic valve CONCLUSION: 1. Mild nonobstructive coronary artery disease 2. Mildly elevated left-sided filling pressure POSTPROCEDURE MANAGEMENT: Medical treatment and follow-up with the patient
[2021-12-20] MEDS ORDERED: SODIUM CHLORIDE 0.9% 1,000 ML IV SCH (11:30)
--- NOTE | 2021-12-20 12:07 | P.HPIM ---
History of Present Illness This is a pleasant 76 years old female with multiple medical problems as below. Patient states that she presents because of weakness and dyspnea for about a week, yesterday become more severe and she got hit by profound super weakness and more shortness of breath associated with dizziness and nausea. Therefore she decided to come to emergency room. She had mild chest pain or discomfort about 1-2/10 in severity which is nonspecific. Patient still complains from chest tightness,. She uses 2 L of oxygen at home, she has a patent all the times. She smoked since age 18 total 30s, by her mid 30s years of age she started having asthma/COPD Her satellite instruction facilitator is Dr. Gonzalez before we consult consult after only Pt initially hypotensive with SBP of 80. Pt given 500 ml 0.9 bolus and it brought pts BP to 94 SBP. EMS then gave 10 mcg of epi which improved BP to 150/90s. Overnight patient became tachycardic so started her on normal saline 75 mL/h, her tachycardia improved today. Because of her dehydration will give her 50 mL/h 24 hours. Patient is tachycardic with heart rate 120s and tachypneic at 20-22 Labs showing unremarkable CBC with normal WBC of 4.4. INR 1.0. D-dimer 0.8. BMP is unremarkable including liver enzymes. Troponin is elevated at 0.92. Urine analysis looks like concentrated sample but has 1+ ketones and moderate leukocytes esterase. Viruses are not detected including influenza, Covid, RSV CT of the chest with contrast, no evidence of pulmonary embolism. There is evidence of COPD and mild pulmonary fibrosis. Minimal thoracic compression fracture are stable compared to old exam. Chest x-ray no active cardiopulmonary disease. AV started on heparin drip and aspirin 1. Also started on normal saline 75 mL/h 12/19/2021 Patient respiratory status improved patient probably will undergo cardiac ca theterization tomorrow. 02/19/2022 Patient had cardiac catheterization which showed mild coronary occlusive disease if cleared by cardiology patient will be discharged today patient is still in A. fib but rate controlled on 25 mg of extended release metoprolol patient will be discharged on that medication because of hypotension her Cardizem was discontinued and lisinopril was discussed in your patient had normal ejection fraction. Patient has a symptomatic bacteriuria will not require any more antibiotics antibiotics will be discontinued at this time. PHYSICAL EXAMINATION: GENERAL: The patient is alert and oriented x3, not in any acute distress. Well developed, well nourished. HEENT: Pupils are round and equally reacting to light. EOMI. No scleral icterus. No conjunctival pallor. Normocephalic, atraumatic. No pharyngeal erythema. No thyromegaly. CARDIOVASCULAR: S1 and S2 present. No murmurs, rubs, or gallops. PULMONARY: Chest is clear to auscultation, no wheezing or crackles. ABDOMEN: Soft, nontender, nondistended, normoactive bowel sounds. No palpable organomegaly. MUSCULOSKELETAL: No joint swelling or deformity. EXTREMITIES: No cyanosis, clubbing, or pedal edema. NEUROLOGICAL: Gross neurological examination did not reveal any focal deficits. SKIN: No rashes. Assessment and Plan Assessment: Acute asthma exacerbation with elements of COPD exacerbation continue with systemic steroids inhalational treatments. Patient will be discharged on weaning doses of steroids short taper Occasional mild chest pain and elevated troponin most likely secondary to COPD and hypertension, rule out non-STEMIAlthough felt less likely , patient underwent cardiac catheterization which showed mild coronary artery disease which will not require any intervention Asymptomatic bacteriuria on antibiotics for this continued Hypertension, patient was hypotensive on admission history of GERD Hyperlipidemia COPD, no acute exacerbation Chronic hypoxic respiratory failure uses 2 L of oxygen at home History of depression and anxiety Generalized deconditioning was evaluated by physical therapy recommended home care Past Medical History Past Medical History: Asthma, Chest Pain / Angina, COPD, GERD/Reflux, Hyperlipidemia, Hypertension, Pneumonia Additional Past Medical History / Comment(s): oxygen [place] @2L continuous, gallstones, pernicious anemia History of Any Multi-Drug Resistant Organisms: None Reported Past Surgical History: Hernia Repair, Joint Replacement, Orthopedic Surgery, Tonsillectomy Additional Past Surgical History / Comment(s): left elbow surgery, abscess in stomach area, abdominial scar tissue, tamie oophorectomy, left knee surgery, left hip replacement Past Anesthesia/Blood Transfusion Reactions: No Reported Reaction Past Psychological History: Anxiety, Depression Smoking Status: Former smoker Past Alcohol Use History: None Reported Additional Past Alcohol Use History / Comment(s): quit smoking 2001, smoked since age 18, 2 PPD Past Drug Use History: None Reported - Past Family History Mother Family Medical History: No Reported History Additional Family Medical History / Comment(s): MS Father Family Medical History: CVA/TIA, Myocardial Infarction ([place]) Additional Family Medical History / Comment(s): ETOH Medications and Allergies Home Medications Medication Instructions Recorded Confirmed Type Simvastatin [Zocor] 40 mg PO HS 02/20/15 12/17/21 History Montelukast Sodium [Singulair] 10 mg PO HS 03/01/16 12/17/21 History Albuterol Sulfate [Ventolin HFA] 2 puff INHALATION RT-Q4H PRN 06/20/21 12/17/21 History Ipratropium/Albuterol Sulfate 1 puff INHALATION RT-QID 06/20/21 12/17/21 History [Combivent Respimat Inhaler] Omeprazole 20 mg PO DAILY 06/20/21 12/17/21 History Sertraline [Zoloft] 200 mg PO DAILY 06/20/21 12/17/21 History ALPRAZolam [Xanax] 0.5 mg PO TID 11/08/21 12/17/21 History Acetaminophen [Tylenol Extra 1,000 mg PO Q6H PRN 11/08/21 12/17/21 History Strength] Ondansetron [Zofran] 4 mg PO Q8HR PRN 11/08/21 12/17/21 History Budesonide-Formot 160-4.5 Mcg 2 puff INHALATION RT-BID #1 inh 12/20/21 Rx [Symbicort 160-4.5 Mcg Inhaler] Metoprolol Succinate (ER) [Toprol 25 mg PO DAILY #30 tab 12/20/21 Rx Xl] Allergies Allergy/AdvReac Type Severity Reaction Status Date / Time No Known Allergies Allergy Verified 12/17/21 18:50 Physical Exam Vitals: Vital Signs Temp Pulse Pulse Pulse Resp BP Pulse Ox 12/20/21 08:07 112 H 12/20/21 08:00 98.1 F 77 19 114/67 98 12/20/21 07:56 110 H 93 L 12/20/21 04:00 98.0 F 70 18 100/59 96 12/20/21 00:00 97.9 F 73 20 105/55 98 12/19/21 20:00 98.5 F 114 H 20 128/73 95 12/19/21 19:52 118 H 12/19/21 19:40 119 H 12/19/21 16:49 92 L 12/19/21 16:00 99.0 F 120 H 19 126/77 96 12/19/21 14:00 120 H 19 12/19/21 13:15 135 H 21 151/103 95 12/19/21 13:05 184 H 20 151/111 94 L 12/19/21 13:00 187 H 24 180/133 94 L Intake and Output 12/19/21 12/20/21 12/20/21 22:59 06:59 14:59 Intake Total 209.076 Output Total 300 Balance -90.924 Intake: IV 10 Invasive Line 1 10 Intake, IV Titration 81.076 Amount Heparin Sod,Pork in 0.45% 81.076 NaCl 25,000 unit In 0.45 % NaCl 1 250ml.bag @ 12 UNITS/KG/HR 8.165 mls/hr IV .Q24H ROMIE Rx#: [id number] Oral 118 Output: Urine 300 Other: Voiding Method Bedpan Bedpan # Voids 1 Results CBC & Chem 7: 12/20/21 08:19 12/20/21 08:19 Labs: Abnormal Lab Results - Last 24 Hours (Table) 12/19/21 12/20/21 12/20/21 Range/Units 18:05 00:30 08:19 MCHC (31.0-37.0) g/dL RDW (11.5-15.5) % Lymphocytes # (1.0-4.8) k/uL APTT 67.3 H 58.2 H (22.0-30.0) sec Carbon Dioxide 35 H (22-30) mmol/L Glucose 110 H (74-99) mg/dL 12/20/21 12/20/21 Range/Units 08:19 08:19 MCHC 30.1 L (31.0-37.0) g/dL RDW 17.5 H (11.5-15.5) % Lymphocytes # 0.8 L (1.0-4.8) k/uL APTT 57.1 H (22.0-30.0) sec Carbon Dioxide (22-30) mmol/L Glucose (74-99) mg/dL Thrombosis Risk Factor Assmnt - Choose All That Apply Any of the Below Risk Factors Present?: Yes Each Factor Represents 1 point: Abnormal pulmonary function (COPD), Obesity (BMI >25) Other Risk Factors: Yes Each Risk Factor Represents 2 Points: Age 61-74 years Other congenital or acquired thrombophilia - If yes, enter type in comment: No Thrombosis Risk Factor Assessment Total Risk Factor Score: 4 Thrombosis Risk Factor Assessment Level: Moderate Risk
--- NOTE | 2021-12-20 12:08 | P.DS ---
Providers Date of admission: 12/17/21 21:34 Attending physician: Haim Mederos MD Consults: 12/17/21 21:34 Consult Physician Urgent Consulting Provider: Grayson Allen Consult Reason/Comments: Elevated troponin Do you want consulting provider notified?: Yes 12/18/21 10:20 Consult Physician Urgent Consulting Provider: Ja Smith Consult Reason/Comments: Asthma/COPD exacerbation Do you want consulting provider notified?: Yes Primary care physician: [facility] Course: This is a pleasant 76 years old female with multiple medical problems as below. Patient states that she presents because of weakness and dyspnea for about a week, yesterday become more severe and she got hit by profound super weakness and more shortness of breath associated with dizziness and nausea. Therefore she decided to come to emergency room. She had mild chest pain or discomfort about 1-2/10 in severity which is nonspecific. Patient still complains from chest tightness,. She uses 2 L of oxygen at home, she has a patent all the times. She smoked since age 18 total 30s, by her mid 30s years of age she started having asthma/COPD Her lining finisher is Dr. Gonzalez before we consult consult after only Pt initially hypotensive with SBP of 80. Pt given 500 ml 0.9 bolus and it brought pts BP to 94 SBP. EMS then gave 10 mcg of epi which improved BP to 150/90s. Overnight patient became tachycardic so started her on normal saline 75 mL/h, her tachycardia improved today. Because of her dehydration will give her 50 mL/h 24 hours. Patient is tachycardic with heart rate 120s and tachypneic at 20-22 Labs showing unremarkable CBC with normal WBC of 4.4. INR 1.0. D-dimer 0.8. BMP is unremarkable including liver enzymes. Troponin is elevated at 0.92. Urine analysis looks like concentrated sample but has 1+ ketones and moderate leukocytes esterase. Viruses are not detected including influenza, Covid, RSV CT of the chest with contrast, no evidence of pulmonary embolism. There is evidence of COPD and mild pulmonary fibrosis. Minimal thoracic compression fracture are stable compared to old exam. Chest x-ray no active cardiopulmonary disease. AV started on heparin drip and aspirin 1. Also started on normal saline 75 mL/h 12/19/2021 Patient respiratory status improved patient probably will undergo cardiac catheterization tomorrow. 02/19/2022 Patient had cardiac catheterization which showed mild coronary occlusive disease if cleared by cardiology patient will be discharged today patient is still in A. fib but rate controlled on 25 mg of extended release metoprolol patient will be discharged on that medication because of hypotension her Cardizem was discontinued and lisinopril was discussed in your patient had normal ejection fraction. Patient has a symptomatic bacteriuria will not require any more antibiotics antibiotics will be discontinued at this time. PHYSICAL EXAMINATION: GENERAL: The patient is alert and oriented x3, not in any acute distress. Well developed, well nourished. HEENT: Pupils are round and equally reacting to light. EOMI. No scleral icterus. No conjunctival pallor. Normocephalic, atraumatic. No pharyngeal erythema. No thyromegaly. CARDIOVASCULAR: S1 and S2 present. No murmurs, rubs, or gallops. PULMONARY: Chest is clear to auscultation, no wheezing or crackles. ABDOMEN: Soft, nontender, nondistended, normoactive bowel sounds. No palpable organomegaly. MUSCULOSKELETAL: No joint swelling or deformity. EXTREMITIES: No cyanosis, clubbing, or pedal edema. NEUROLOGICAL: Gross neurological examination did not reveal any focal deficits. SKIN: No rashes. Assessment and Plan Assessment: Acute asthma exacerbation with elements of COPD exacerbation continue with systemic steroids inhalational treatments. Patient will be discharged on weaning doses of steroids short taper Occasional mild chest pain and elevated troponin most likely secondary to COPD and hypertension, rule out non-STEMIAlthough felt less likely , patient underwent cardiac catheterization which showed mild coronary artery disease which will not require any intervention Asymptomatic bacteriuria on antibiotics for this continued Hypertension, patient was hypotensive on admission history of GERD Hyperlipidemia COPD, no acute exacerbation Chronic hypoxic respiratory failure uses 2 L of oxygen at home History of depression and anxiety Generalized deconditioning was evaluated by physical therapy recommended home care Patient Condition at Discharge: Stable Plan - Discharge Summary Discharge Rx Participant: No New Discharge Prescriptions: New Budesonide-Formot 160-4.5 Mcg [Symbicort 160-4.5 Mcg Inhaler] 2 puff INHALATION RT-BID #1 inh Metoprolol Succinate (ER) [Toprol Xl] 25 mg PO DAILY #30 tab predniSONE 10 mg PO DAILY #15 tab Continue Simvastatin [Zocor] 40 mg PO HS Montelukast Sodium [Singulair] 10 mg PO HS Sertraline [Zoloft] 200 mg PO DAILY Omeprazole 20 mg PO DAILY Ondansetron [Zofran] 4 mg PO Q8HR PRN PRN Reason: Nausea ALPRAZolam [Xanax] 0.5 mg PO TID Albuterol Sulfate [Ventolin HFA] 2 puff INHALATION RT-Q4H PRN PRN Reason: Shortness Of Breath Ipratropium/Albuterol Sulfate [Combivent Respimat Inhaler] 1 puff INHALATION RT-QID Acetaminophen [Tylenol Extra Strength] 1,000 mg PO Q6H PRN PRN Reason: Fever And/ Or Pain Discontinued Diltiazem Cd [Cardizem CD] 240 mg PO DAILY lisinopriL [Zestril] 20 mg PO DAILY Discharge Medication List Simvastatin [Zocor] 40 mg PO HS 02/20/15 [History] Montelukast Sodium [Singulair] 10 mg PO HS 03/01/16 [History] Albuterol Sulfate [Ventolin HFA] 2 puff INHALATION RT-Q4H PRN 06/20/21 [History] Ipratropium/Albuterol Sulfate [Combivent Respimat Inhaler] 1 puff INHALATION RT- QID 06/20/21 [History] Omeprazole 20 mg PO DAILY 06/20/21 [History] Sertraline [Zoloft] 200 mg PO DAILY 06/20/21 [History] ALPRAZolam [Xanax] 0.5 mg PO TID 11/08/21 [History] Acetaminophen [Tylenol Extra Strength] 1,000 mg PO Q6H PRN 11/08/21 [History] Ondansetron [Zofran] 4 mg PO Q8HR PRN 11/08/21 [History] Budesonide-Formot 160-4.5 Mcg [Symbicort 160-4.5 Mcg Inhaler] 2 puff INHALATION RT-BID #1 inh 12/20/21 [Rx] Metoprolol Succinate (ER) [Toprol Xl] 25 mg PO DAILY #30 tab 12/20/21 [Rx] predniSONE 10 mg PO DAILY #15 tab 12/20/21 [Rx] Follow up Appointment(s)/Referral(s): Grayson Allen MD [STAFF PHYSICIAN] - 1 Week Tory Gonzalez MD [Primary Care Provider] - 1-2 days [facility], [NON-STAFF] - Discharge Disposition: HOME WITH HOME HEALTH SERVICES
[2021-12-20] MEDS: SERTRALINE 100 MG TAB PO SCH (14:22)
[2021-12-20] MEDS: METOPROLOL SUCCINATE (ER) 25 MG TAB.ER.24H PO SCH (14:22)
--- NOTE | 2021-12-20 19:43 | CDI ---
Documentation Clarification Form Date: 12/20/2021 07:25:15 PM From: Elizabeth Hernández RN, CCDS Email: [email or web address] Admit Date: 12/17/2021 09:34:00 PM Patient Name: Cesia Fried Visit Number: [id number] Discharge Date: ATTENTION: The Clinical Documentation Specialists (CDI) and [facility] Coding Staff appreciate your assistance in clarifying documentation. Please respond to the clarification below the line at the bottom and electronically sign. The CDI & [facility] Coding staff will review the response and follow-up if needed. Please note: Queries are made part of the Legal Health Record. If you have any questions, please contact the author of this message via ITS. Dr. Anay Schuster NSTEMI is documented in the progress notes. Additional clarification is requested. History/Risk Factors: COPD, HTN, GERD, Home O2. Admitted with chest pain, rule out NSTEMI. Clinical Indicators: chest pain, dyspnea 12/18 H&P: "Overnight patient became tachycardic so started her on normal saline 75 mL/h, her tachycardia improved today" 12/18 Cardiology Consult: "Non-STEMI. Positive troponins rule out ACS." 12/20 H&P: "rule out non-STEMI. Although felt less likely, patient underwent cardiac catheterization which showed mild coronary artery disease which will not require any intervention." Troponin: 12/17 0.900>0.937 12/18 0.609 12/18 EKG Results: NSR. T wave abnormality Treatment: IV Heparin 12/17-12/20. IV Lopressor x1 12/19. 12/20 Cardiac cath: Mild non-obstructive coronary artery disease. Mildly elevated left-sided filling pressure. Medical treatment Please clarify if NSTEMI is: [ ] NSTEMI ruled in [ x ] NSTEMI ruled out [ ] Unable to determine [ ] Other Condition, please specify MTDD
[2021-12-20] MEDS: MONTELUKAST 10 MG TAB PO SCH (20:05)
[2021-12-20] MEDS: ATORVASTATIN 20 MG TAB PO SCH (20:05)
[2021-12-20] MEDS ORDERED: IPRATROPIUM-ALBUTEROL 3 ML NEB INHALATION PRN (20:24)
[2021-12-21] MEDS: PANTOPRAZOLE 40 MG TABLET PO SCH (07:01)
--- NOTE | 2021-12-21 09:08 | CDI ---
Documentation Clarification Form Date: 12/21/2021 08:56:40 AM From: Elizabeth Hernández RN, CCDS Email: [email or web address] Admit Date: 12/17/2021 09:34:00 PM Patient Name: Cesia Fried Visit Number: [id number] Discharge Date: ATTENTION: The Clinical Documentation Specialists (CDI) and [facility] Coding Staff appreciate your assistance in clarifying documentation. Please respond to the clarification below the line at the bottom and electronically sign. The CDI & [facility] Coding staff will review the response and follow-up if needed. Please note: Queries are made part of the Legal Health Record. If you have any questions, please contact the author of this message via ITS. Dr. Anay Schuster Conflicting documentation has been found in the medical record. As attending physician, please provide clarification. "Acute asthma exacerbation with elements of COPD exacerbation" documented in the 12/19 progress note "COPD, no acute exacerbation" also documented in the 12/19 progress note History/Risk Factors: Asthma, Chest Pain / Angina, COPD, GERD/Reflux, Hyperlipidemia, Hypertension, Pneumonia. Presents with profound weakness and more shortness of breath associated with dizziness and nausea Clinical Indicators: 12/17 CXR: no active disease 12/17 CTA: evidence of COPD and mild pulmonary fibrosis 12/18 Pulmonary consult: "Acute COPD exacerbation. Acute on chronic hypoxic respiratory failure. Likely non-STEMI with elevated troponin." 12/20 H&P: "Acute asthma exacerbation with elements of COPD exacerbation. Occasional mild chest pain and elevated troponin most likely secondary to COPD. COPD, no acute exacerbation." Treatment: Albuterol/Atrovent Q4H, supplemental oxygen 2-4LNC, IV Decadron Q8H Please clarify which diagnosis is most appropriate: [ ] COPD exacerbation [ x ] COPD, no exacerbation [ ] Other (please specify) [ ] Unable to determine MTDD
[2021-12-21] MEDS: IPRATROPIUM-ALBUTEROL 3 ML NEB INHALATION SCH ×4 (09:12→20:32)
[2021-12-21] MEDS: SYMBICORT 160-4.5 MCG INHALER INHALATION SCH ×2 (09:13→20:32)
[2021-12-21] MEDS: SERTRALINE 100 MG TAB PO SCH (09:16)
[2021-12-21] MEDS: METOPROLOL SUCCINATE (ER) 25 MG TAB.ER.24H PO SCH (09:16)
[2021-12-21] MEDS: methylPREDNISolone SOD SUCCI 40 MG/ML 1 ML VIAL IV SCH (09:16)
--- NOTE | 2021-12-21 09:31 | P.PN ---
Subjective This is a 76-year-old female with a past medical history of asthma, COPD on home oxygen, GERD, hypertension, dyslipidemia. She follows in the office with Dr. Allen. We've been asked to see in consultation for elevated troponin. Patient presents emergency department with complaints of shortness of breath, nausea, weakness, intermittent chest pain, generalized weakness, unsteady gait. Her troponins were 0.9, 0.93, 0.6. Patient's EKG showed sinus rhythm with some ischemic changes. CT was negative for PE. She underwent a cardiac catheterizat ion in 2017 which showed normal coronary arteries. Her echocardiogram revealed decreased at 20-25%, severely reduced global systolic function. Cardiac cath recommended. Patient underwent cardiac catheterization with Dr. Allen on 12/20/2021 with mild non-obstructive coronary artery disease, mildly elevated left sided filling pressure. 12/21/2021 Patient seen and examined at bedside, no acute distress. She states that she had some chest discomfort last night that resolved. She denies any shortness of breath. Denies any palpitations, lightheadedness or dizziness. Her vital signs are stable. Heart rate in the 70s80s, sinus rhythm. GENERAL: Well-appearing, well-nourished and in no acute distress. NECK: Supple without JVD LUNGS: Breath sounds clear to auscultation bilaterally. Respiration equal and unlabored. No wheezes, rales or rhonchi. HEART: Regular rate and rhythm without murmurs, rubs or gallops. S1 and S2 heard. EXTREMITIES: Normal range of motion, no edema. No clubbing or cyanosis. Peripheral pulses intact. SKIN: Right radial cath site clean dry intact 2+ pulses ASSESSMENT Elevated troponin, with decreased EF 20-25%, likely related to heart failure/cardiomyopathy Mild non-obstructive coronary artery disease by cardiac cath 12/20/2021 Non-ischemic cardiomyopathy, consistent with apical ballooning, Takotsubo cardiomyopathy Symptoms of intermittent chest discomfort, shortness of breath, nausea, generalized weakness Asthma COPD GERD Hypertension Dyslipidemia Normal coronary arteries on cardiac catheterization in 2017 PLAN Recommend maximizing heart failure regimen as an inpatient and outpatient Add low dose lisinopril 2.5mg daily Continue metoprolol succinate Continue statin From a cardiology perspective, if patient is stable no acute events ok to dis charge later today vs tomorrow On discharge, follow up with Dr. Skaf in 1 week. Nurse Practitioner note has been reviewed, I agree with a documented findings and plan of care. Patient was seen and examined.. Objective - Vital Signs Vital signs: Vital Signs Temp 98.4 F 12/21/21 04:00 Pulse 77 12/21/21 08:00 Resp 16 12/21/21 08:00 BP 132/86 12/21/21 08:00 Pulse Ox 99 12/21/21 08:00 FiO2 Intake & Output 12/20/21 12/21/21 12/21/21 18:59 06:59 18:59 Intake Total 236 10 Output Total 600 500 Balance 236 -590 -500 Intake: IV 10 Invasive Line 1 10 Oral 236 Output: Urine 600 500 Other: Voiding Method Bedpan Bedpan # Voids 2 - Labs CBC & Chem 7: 12/20/21 08:19 12/20/21 08:19 Labs: Abnormal Lab Results - Last 24 Hours (Table) 12/20/21 Range/Units 08:19 Carbon Dioxide 35 H (22-30) mmol/L Glucose 110 H (74-99) mg/dL
[2021-12-21] MEDS: ALPRAZolam 0.25 MG TAB PO PRN ×2 (11:54→17:49)
--- NOTE | 2021-12-21 13:40 | P.PN ---
Subjective Progress Note Date: 12/20/21 Principal diagnosis: Acute COPD exacerbation Acute on chronic hypoxic respiratory failure Likely non-STEMI with elevated troponin UTI Prior history of dyslipidemia and GERD COPD Prior history of depression and anxiety 12/20/2021, patient seen and evaluated examined shortness of breath still there along with cough denies any chest pain breathing slightly better compared to the time admission, patient is status post cardiac cath angiogram mild nonobstructive coronary artery disease seen, patient remains on bronchodilator, broad-spectrum antibiotics and IV steroids tolerating well along with home medications Patient is a pleasant 76-year-old female 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 One day prior to coming hospital have mild intermittent chest pain as well. On arrival she was noted to be hypertensive ho wever does improve with small fluid bolus. Chest x-ray suggestive of COPD-like changes, computed tomography scan of his chest negative for PE however COPD mild basal pulmonary fibrosis and some compression fracture were noted in thoracic vertebra. Her labs were CBC within normal limit, d-dimer was elevated 0.82, chemistry within normal limit however troponin noted to be 0.9 which are elevated repeat were 0.93 in 0.6. Her EKG significant for sinus tachycardia with a rate of 127, no ectopy, normal TN and QRS interval and QT interval and nonspecific T-wave changes seen. Influenza A and B as well as RSV and COVID-19 negative, urinalysis positive for ketones and leukocyte esterase trace. Rajeev muñoz patient is being treated with bronchodilators with DuoNeb 4 times a day along with IV Rocephin and heparin drip she has been initiated on IV steroids 40 mg every 8 Objective - Vital Signs Vital signs: Vital Signs Temp 98.1 F 12/20/21 08:00 Pulse 112 H 12/20/21 08:07 Resp 19 12/20/21 08:00 BP 114/67 12/20/21 08:00 Pulse Ox 98 12/20/21 08:00 FiO2 Intake & Output 12/19/21 12/20/21 12/20/21 18:59 06:59 18:59 Intake Total 714.208 91.076 Output Total 300 Balance 714.208 -208.924 Intake: IV 10 Invasive Line 1 10 Intake, IV Titration 478.208 81.076 Amount Heparin Sod,Pork in 0.45% 78.208 81.076 NaCl 25,000 unit In 0.45 % NaCl 1 250ml.bag @ 12 UNITS/KG/HR 8.165 mls/hr IV .Q24H ROMIE Rx#: [id number] Sodium Chloride 0.9% 1, 350 000 ml @ 50 mls/hr IV . Q20H ROMIE Rx#:[id number] cefTRIAXone 1 gm In 50 Sodium Chloride 0.9% 50 ml @ 100 mls/hr IVPB Q24HR ROMIE Rx#:[id number] Oral 236 Output: Urine 300 Other: Voiding Method Toilet Bedpan Bedside Commode # Voids 3 1 - Exam - Constitutional General appearance: average body habitus, cooperative, disheveled, mild distress - EENT Eyes: EOMI, PERRLA ENT: normal oropharynx - Neck Carotids: negative: upstroke normal Thyroid: negative: normal size - Respiratory Respiratory: bilateral: diminished - Cardiovascular Rhythm: regular Heart sounds: normal: S1, S2 - Gastrointestinal General gastrointestinal: normal bowel sounds, soft - Integumentary Integumentary: normal turgor - Neurologic Neurologic: CNII-XII intact - Musculoskeletal Musculoskeletal: gait normal, generalized weakness, strength equal bilaterally - Psychiatric Psychiatric: A&O x's 3, appropriate affect, intact judgment & insight - Labs CBC & Chem 7: 12/20/21 08:19 12/20/21 08:19 Labs: Abnormal Lab Results - Last 24 Hours (Table) 12/19/21 12/20/21 12/20/21 Range/Units 18:05 00:30 08:19 MCHC (31.0-37.0) g/dL RDW (11.5-15.5) % Lymphocytes # (1.0-4.8) k/uL APTT 67.3 H 58.2 H (22.0-30.0) sec Carbon Dioxide 35 H (22-30) mmol/L Glucose 110 H (74-99) mg/dL 12/20/21 12/20/21 Range/Units 08:19 08:19 MCHC 30.1 L (31.0-37.0) g/dL RDW 17.5 H (11.5-15.5) % Lymphocytes # 0.8 L (1.0-4.8) k/uL APTT 57.1 H (22.0-30.0) sec Carbon Dioxide (22-30) mmol/L Glucose (74-99) mg/dL Assessment and Plan Assessment: Acute COPD exacerbation Acute on chronic hypoxic respiratory failure Likely non-STEMI with elevated troponin, status post cardiac cath angiogram no significant coronary artery disease seen mild nonobstructive disease noted plantar maximal medical therapy UTI Prior history of dyslipidemia and GERD COPD Prior history of depression and anxiety Plan: IV steroids Breathing treatments Broad-spectrum antibiotics Continue oxygen Cardiac cath angiogram findings noted Further plan of care as per clinical response of patient Time with Patient: Greater than 30
--- NOTE | 2021-12-21 13:42 | P.PN ---
Subjective Progress Note Date: 12/21/21 Principal diagnosis: Acute COPD exacerbation Acute on chronic hypoxic respiratory failure Likely non-STEMI with elevated troponin UTI Prior history of dyslipidemia and GERD COPD Prior history of depression and anxiety 12/21/2021, patient seen eval examined during the rounds labs reviewed medications reviewed care plan discussed, patient remains afebrile and hemodynamically stable, oxygen saturation 95% 2 L, patient remains on IV steroids antibiotics and breathing treatments, mild nonproductive cough is present with dyspnea on exertion continue to improve slowly 12/20/2021, patient seen and evaluated examined shortness of breath still there along with cough denies any chest pain breathing slightly better compared to the time admission, patient is status post cardiac cath angiogram mild nonobstructive coronary artery disease seen, patient remains on bronchodilator, broad-spectrum antibiotics and IV steroids tolerating well along with home medications Patient is a pleasant 76-year-old female 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 One day prior to coming hospital have mild intermittent chest pain as well. On arrival she was noted to be hypertensive however does improve with small fluid bolus. Chest x-ray suggestive of COPD- like changes, computed tomography scan of his chest negative for PE however COPD mild basal pulmonary fibrosis and some compression fracture were noted in thoracic vertebra. Her labs were CBC within normal limit, d-dimer was elevated 0.82, chemistry within normal limit however troponin noted to be 0.9 which are elevated repeat were 0.93 in 0.6. Her EKG significant for sinus tachycardia with a rate of 127, no ectopy, normal MS and QRS interval and QT interval and nonspecific T-wave changes seen. Influenza A and B as well as RSV and COVID-19 negative, urinalysis positive for ketones and leukocyte esterase trace. Currently patient is being treated with bronchodilators with DuoNeb 4 times a day along with IV Rocephin and heparin drip she has been initiated on IV st eroids 40 mg every 8 Objective - Vital Signs Vital signs: Vital Signs Temp 98.4 F 12/21/21 04:00 Pulse 86 12/21/21 12:35 Resp 16 12/21/21 12:00 BP 176/83 12/21/21 12:00 Pulse Ox 95 12/21/21 12:00 FiO2 Intake & Output 12/20/21 12/21/21 12/21/21 18:59 06:59 18:59 Intake Total 236 10 Output Total 600 1000 Balance 236 -590 -1000 Intake: IV 10 Invasive Line 1 10 Oral 236 Output: Urine 600 1000 Other: Voiding Method Bedpan Bedpan Bedpan # Voids 2 - Exam - Constitutional General appearance: average body habitus, cooperative, disheveled, mild distress - EENT Eyes: EOMI, PERRLA ENT: normal oropharynx - Neck Carotids: negative: upstroke normal Thyroid: negative: normal size - Respiratory Respiratory: bilateral: diminished - Cardiovascular Rhythm: regular Heart sounds: normal: S1, S2 - Gastrointestinal General gastrointestinal: normal bowel sounds, soft - Integumentary Integumentary: normal turgor - Neurologic Neurologic: CNII-XII intact - Musculoskeletal Musculoskeletal: gait normal, generalized weakness, strength equal bilaterally - Psychiatric Psychiatric: A&O x's 3, appropriate affect, intact judgment & insight - Labs CBC & Chem 7: 12/20/21 08:19 12/20/21 08:19 Assessment and Plan Assessment: Acute COPD exacerbation Acute on chronic hypoxic respiratory failure Likely non-STEMI with elevated troponin, status post cardiac cath angiogram no significant coronary artery disease seen mild nonobstructive disease noted plantar maximal medical therapy UTI Prior history of dyslipidemia and GERD COPD Prior history of depression and anxiety Plan: IV steroids Breathing treatments Broad-spectrum antibiotics Continue oxygen Cardiac cath angiogram findings noted Further plan of care as per clinical response of patient Time with Patient: Greater than 30
[2021-12-21] MEDS: ONDANSETRON 4 MG/2 ML VIAL IVP PRN (17:49)
--- NOTE | 2021-12-21 18:50 | P.DS ---
Providers Date of admission: 12/17/21 21:34 Expected date of discharge: 12/21/21 Attending physician: Haim Mederos MD Consults: 12/17/21 21:34 Consult Physician Urgent Consulting Provider: Grayson Allen Consult Reason/Comments: Elevated troponin Do you want consulting provider notified?: Yes 12/18/21 10:20 Consult Physician Urgent Consulting Provider: Ja Smith Consult Reason/Comments: Asthma/COPD exacerbation Do you want consulting provider notified?: Yes Primary care physician: Tory Gonzalez Hospital Course: Final diagnosis Acute asthma exacerbation elevated troponin secondary to COPD and hypertension, ruled out N-STEMI mild coronary artery disease which will not require any intervention on cardiac cath and recommend to maximize medical management Asymptomatic bacteriuria, will not require antibiotics. Received 3 doses while hospitalized History of Hypertension, patient was hypotensive on admission history of GERD Hyperlipidemia COPD, not in acute exacerbation Chronic hypoxic respiratory failure uses 2 L of oxygen at home History of depression and anxiety Generalized deconditioning Full code Discharge disposition Patient is being discharged in a stable condition with guarded prognosis to home. Patient will follow-up with Dr. Tory Gonzalez in the outpatient setting upon discharge. Patient is to continue with maximizing medical management as discussed. Recommend cardiology and pulmonary follow up outpatient. Total time taken is greater than 35 minutes. Hospital course This is a 76-year-old female who was recently admitted with chest pain with associated shortness of breath. Patient was continued on telemetry monitoring with cardiology and pulmonary following. Patient underwent cardiac catheterization with mild disease noted and no stents were placed. Medication adjustments made by cardiology. Patient medically stable for discharge today. Patient has been cleared by cardiology for close outpatient follow up. Patient also to follow up with pulmonary outpatient and complete a short prednisone taper on discharge. Patient has received empiric antibiotic while hospitalized and no white count nor fevers during hospitalization. No antibiotics on discharge. Currently no reports of chest pain, shortness of breath, or palpitations. Patient is on 2 L via NC and reports she wears oxygen outpatient. Patient is afebrile. No reports of nausea or vomiting and patient is tolerating diet. Patient will be discharge home today. Guarded prognosis. Physical exam: Gen: This is a 76 year old female who is awake, alert,and oriented x3. well developed, well nourished HEENT: Head is atraumatic, normocephalic. Pupils equal, round. Sclerae is anicteric. NECK: Supple. No JVD. No lymphadenopathy. No thyromegaly. LUNGS: diminished breath sounds bilaterally with some mild rhonchi noted. No intercostal retractions. HEART: S1, S2 muffled ABDOMEN: Soft. Bowel sounds are present. No masses. No tenderness. EXTREMITIES: No pedal edema. No calf tenderness. NEUROLOGICAL: Patient is awake, alert and oriented x3. Cranial nerves 2 through 12 are grossly intact. Please refer to medication reconciliation sheet for a list of medications. The impression and plan of care has been dictated by Janell Luevano, Nurse Practitioner as directed. Dr. Mariely MD I have performed a history and examination and MDM of this patient, discussed the same with the dictator, and agree with the dictator's assessment and plan as written ,documented as a scribe. Based on total visit time, I have performed more than 50% of the visit. Patient Condition at Discharge: Stable Plan - Discharge Summary Discharge Rx Participant: No New Discharge Prescriptions: New Budesonide-Formot 160-4.5 Mcg [Symbicort 160-4.5 Mcg Inhaler] 2 puff INHALATION RT-BID #1 inh Metoprolol Succinate (ER) [Toprol Xl] 25 mg PO DAILY #30 tab predniSONE 10 mg PO DAILY #15 tab lisinopriL [Zestril] 2.5 mg PO DAILY #90 tab Continue Simvastatin [Zocor] 40 mg PO HS Montelukast Sodium [Singulair] 10 mg PO HS Sertraline [Zoloft] 200 mg PO DAILY Omeprazole 20 mg PO DAILY Ondansetron [Zofran] 4 mg PO Q8HR PRN PRN Reason: Nausea ALPRAZolam [Xanax] 0.5 mg PO TID Albuterol Sulfate [Ventolin HFA] 2 puff INHALATION RT-Q4H PRN PRN Reason: Shortness Of Breath Ipratropium/Albuterol Sulfate [Combivent Respimat Inhaler] 1 puff INHALATION RT-QID Acetaminophen [Tylenol Extra Strength] 1,000 mg PO Q6H PRN PRN Reason: Fever And/ Or Pain Discontinued Diltiazem Cd [Cardizem CD] 240 mg PO DAILY lisinopriL [Zestril] 20 mg PO DAILY Discharge Medication List Simvastatin [Zocor] 40 mg PO HS 02/20/15 [History] Montelukast Sodium [Singulair] 10 mg PO HS 03/01/16 [History] Albuterol Sulfate [Ventolin HFA] 2 puff INHALATION RT-Q4H PRN 06/20/21 [History] Ipratropium/Albuterol Sulfate [Combivent Respimat Inhaler] 1 puff INHALATION RT- QID 06/20/21 [History] Omeprazole 20 mg PO DAILY 06/20/21 [History] Sertraline [Zoloft] 200 mg PO DAILY 06/20/21 [History] ALPRAZolam [Xanax] 0.5 mg PO TID 11/08/21 [History] Acetaminophen [Tylenol Extra Strength] 1,000 mg PO Q6H PRN 11/08/21 [History] Ondansetron [Zofran] 4 mg PO Q8HR PRN 11/08/21 [History] Budesonide-Formot 160-4.5 Mcg [Symbicort 160-4.5 Mcg Inhaler] 2 puff INHALATION RT-BID #1 inh 12/20/21 [Rx] Metoprolol Succinate (ER) [Toprol Xl] 25 mg PO DAILY #30 tab 12/20/21 [Rx] predniSONE 10 mg PO DAILY #15 tab 12/20/21 [Rx] lisinopriL [Zestril] 2.5 mg PO DAILY #90 tab 12/21/21 [Rx] Follow up Appointment(s)/Referral(s): Grayson Allen MD [STAFF PHYSICIAN] - 1 Week Tory Gonzalez MD [Primary Care Provider] - 1-2 days [facility], [NON-STAFF] - Ja Smith MD [STAFF PHYSICIAN] - 1 Week Activity/Diet/Wound Care/Special Instructions: Activity Limited until follow-up Follow-up with primary care provider on discharge Continue taking medications as prescribed Follow-up with cardiology outpatient Follow-up pulmonary outpatient Discharge Disposition: HOME WITH HOME HEALTH SERVICES
[2021-12-21] MEDS: MONTELUKAST 10 MG TAB PO SCH (19:54)
[2021-12-21] MEDS: ATORVASTATIN 20 MG TAB PO SCH (19:54)
[2021-12-21] MEDS: ALPRAZolam 0.5 MG TAB PO PRN (22:43)
[2021-12-22] MEDS: PANTOPRAZOLE 40 MG TABLET PO SCH (06:23)
[2021-12-22] MEDS: ALPRAZolam 0.5 MG TAB PO PRN ×2 (06:50→13:11)
[2021-12-22] MEDS: SYMBICORT 160-4.5 MCG INHALER INHALATION SCH (08:07)
[2021-12-22] MEDS: IPRATROPIUM-ALBUTEROL 3 ML NEB INHALATION SCH ×2 (08:07→11:58)
[2021-12-22] MEDS: SERTRALINE 100 MG TAB PO SCH (08:56)
[2021-12-22] MEDS ORDERED: METOPROLOL SUCCINATE (ER) 25 MG TAB.ER.24H PO SCH (09:00)
[2021-12-22] MEDS ORDERED: predniSONE 20 MG TAB PO SCH (09:00)
[2021-12-22 09:41] VITALS: TEMP 97.6
--- NOTE | 2021-12-22 10:23 | P.PN ---
Subjective This is a 76-year-old female with a past medical history of asthma, COPD on home oxygen, GERD, hypertension, dyslipidemia. She follows in the office with Dr. Allen. We've been asked to see in consultation for elevated troponin. Patient presents emergency department with complaints of shortness of breath, nausea, weakness, intermittent chest pain, generalized weakness, unsteady gait. Her troponins were 0.9, 0.93, 0.6. Patient's EKG showed sinus rhythm with some ischemic changes. CT was negative for PE. She underwent a cardiac catheterizat ion in 2017 which showed normal coronary arteries. Her echocardiogram revealed decreased at 20-25%, severely reduced global systolic function. Cardiac cath recommended. Patient underwent cardiac catheterization with Dr. Allen on 12/20/2021 with mild non-obstructive coronary artery disease, mildly elevated left sided filling pressure. 12/22/2021 Patient seen and examined at bedside, no acute distress. She denies any chest pain or shortness of breath. Overall she is feeling well. She is tolerating her medications. Denies any palpitations, lightheadedness or dizziness. Her vital signs are stable. Heart rate in the 70s80s, sinus rhythm. GENERAL: Well-appearing, well-nourished and in no acute distress. NECK: Supple without JVD LUNGS: Breath sounds clear to auscultation bilaterally. Respiration equal and unlabored. No wheezes, rales or rhonchi. HEART: Regular rate and rhythm without murmurs, rubs or gallops. S1 and S2 heard. EXTREMITIES: Normal range of motion, no edema. No clubbing or cyanosis. Peripheral pulses intact. SKIN: Right radial cath site clean dry intact 2+ pulses ASSESSMENT Elevated troponin, with decreased EF 20-25%, likely related to heart failure/cardiomyopathy Mild non-obstructive coronary artery disease by cardiac cath 12/20/2021 Non-ischemic cardiomyopathy, consistent with apical ballooning, Takotsubo cardiomyopathy Symptoms of intermittent chest discomfort, shortness of breath, nausea, generalized weakness Asthma COPD GERD Hypertension Dyslipidemia Normal coronary arteries on cardiac catheterization in 2017 PLAN Recommend maximizing heart failure regimen as an inpatient and outpatient Increase metoprolol succinate to 50mg daily Continue lisinopril 2.5mg daily Continue metoprolol succinate Consider spironolactone as an outpatient From a cardiology perspective, if patient is stable no acute events ok to discharge today On discharge, follow up with Dr. Allen in 1 week. Nurse Practitioner note has been reviewed, I agree with a documented findings and plan of care. Patient was seen and examined.. Objective - Vital Signs Vital signs: Vital Signs Temp 97.6 F 12/22/21 08:55 Pulse 82 12/22/21 08:55 Resp 18 12/22/21 08:55 BP 130/83 12/22/21 08:55 Pulse Ox 98 12/22/21 08:55 FiO2 Intake & Output 12/21/21 12/22/21 12/22/21 18:59 06:59 18:59 Intake Total 0 Output Total 1600 350 Balance -1600 -350 Intake: Oral 0 Output: Urine 1600 350 Other: Voiding Method Bedpan Bedpan Bedpan # Voids 0 - Labs CBC & Chem 7: 12/20/21 08:19 12/20/21 08:19
[2021-12-22] MEDS: ONDANSETRON 4 MG/2 ML VIAL IVP PRN (11:25)
[2021-12-22 12:02] VITALS: BP 144/96; RESP 17
[2021-12-22 12:12] VITALS: PULSE 86
--- NOTE | 2021-12-22 15:38 | P.PN ---
Subjective Progress Note Date: 12/22/21 Principal diagnosis: Acute COPD exacerbation Acute on chronic hypoxic respiratory failure Likely non-STEMI with elevated troponin UTI Prior history of dyslipidemia and GERD COPD Prior history of depression and anxiety 12/22/2021, patient seen eval examined during the rounds labs reviewed medications reviewed care plan, patient remains stable on supplemental oxygen, some shortness of breast present activity, however denies any cough or sputum production reading more comfortably afebrile hemodynamically he remains stable heart rate is 70-80, echocardiogram revealed ejection fraction 20-25%, prior to discharge patient in the swish oral antibiotics and oral tapering doses of steroids 12/21/2021, patient seen eval examined during the rounds labs reviewed medications reviewed care plan discussed, patient remains afebrile and hemodynamically stable, oxygen saturation 95% 2 L, patient remains on IV steroids antibiotics and breathing treatments, mild nonproductive cough is present with dyspnea on exertion continue to improve slowly 12/20/2021, patient seen and evaluated examined shortness of breath still there along with cough denies any chest pain breathing slightly better compared to the time admission, patient is status post cardiac cath angiogram mild nonobs tructive coronary artery disease seen, patient remains on bronchodilator, broad- spectrum antibiotics and IV steroids tolerating well along with home medications Patient is a pleasant 76-year-old female 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 One day prior to coming hospital have mild intermittent chest pain as well. On arrival she was noted to be hypertensive however does improve with small fluid bolus. Chest x-ray suggestive of COPD-lik e changes, computed tomography scan of his chest negative for PE however COPD mild basal pulmonary fibrosis and some compression fracture were noted in thoracic vertebra. Her labs were CBC within normal limit, d-dimer was elevated 0.82, chemistry within normal limit however troponin noted to be 0.9 which are elevated repeat were 0.93 in 0.6. Her EKG significant for sinus tachycardia with a rate of 127, no ectopy, normal HI and QRS interval and QT interval and nonspecific T-wave changes seen. Influenza A and B as well as RSV and COVID-19 negative, urinalysis positive for ketones and leukocyte esterase trace. Currently patient is being treated with bronchodilators with DuoNeb 4 times a day along with IV Rocephin and heparin drip she has been initiated on IV steroids 40 mg every 8 Objective - Vital Signs Vital signs: Vital Signs Temp 97.6 F 12/22/21 08:55 Pulse 86 12/22/21 12:11 Resp 17 12/22/21 11:10 BP 144/96 12/22/21 11:10 Pulse Ox 96 12/22/21 11:10 FiO2 Intake & Output 12/21/21 12/22/21 12/22/21 18:59 06:59 18:59 Intake Total 180 Output Total 1600 350 Balance -1600 -170 Intake: Oral 180 Output: Urine 1600 350 Other: Voiding Method Bedpan Bedpan Bedpan # Voids 0 - Exam - Constitutional General appearance: average body habitus, cooperative, disheveled, mild distress - EENT Eyes: EOMI, PERRLA ENT: normal oropharynx - Neck Carotids: negative: upstroke normal Thyroid: negative: normal size - Respiratory Respiratory: bilateral: diminished - Cardiovascular Rhythm: regular Heart sounds: normal: S1, S2 - Gastrointestinal General gastrointestinal: normal bowel sounds, soft - Integumentary Integumentary: normal turgor - Neurologic Neurologic: CNII-XII intact - Musculoskeletal Musculoskeletal: gait normal, generalized weakness, strength equal bilaterally - Psychiatric Psychiatric: A&O x's 3, appropriate affect, intact judgment & insight - Labs CBC & Chem 7: 12/20/21 08:19 12/20/21 08:19 Assessment and Plan Assessment: Acute COPD exacerbation Acute on chronic hypoxic respiratory failure Cardiomyopathy with ejection fraction of 25% Likely non-STEMI with elevated troponin, status post cardiac cath angiogram no significant coronary artery disease seen mild nonobstructive disease noted plantar maximal medical therapy UTI Prior history of dyslipidemia and GERD COPD Prior history of depression and anxiety Plan: IV steroids, can be switched to oral at the time of discharge Breathing treatments Broad-spectrum antibiotics, can be switched to oral at the time of discharge Continue oxygen Cardiac cath angiogram findings noted, echocardiogram findings reviewed, optimize therapy for heart failure as per cardiovascular services Further plan of care as per clinical response of patient Time with Patient: Greater than 30
--- NOTE | 2021-12-24 09:30 | P.DS ---
Providers Date of admission: 12/17/21 21:34 Expected date of discharge: 12/22/21 Attending physician: Haim Mederos MD Consults: 12/17/21 21:34 Consult Physician Urgent Consulting Provider: Grayson Allen Consult Reason/Comments: Elevated troponin Do you want consulting provider notified?: Yes 12/18/21 10:20 Consult Physician Urgent Consulting Provider: Ja Smith Consult Reason/Comments: Asthma/COPD exacerbation Do you want consulting provider notified?: Yes Primary care physician: Tory Gonzalez Hospital Course: Final diagnosis Acute asthma exacerbation elevated troponin secondary to COPD and hypertension, ruled out N-STEMI mild coronary artery disease which will not require any intervention on cardiac cath and recommend to maximize medical management Asymptomatic bacteriuria, will not require antibiotics. Received 3 doses while hospitalized History of Hypertension, patient was hypotensive on admission history of GERD Hyperlipidemia COPD, not in acute exacerbation Chronic hypoxic respiratory failure uses 2 L of oxygen at home History of depression and anxiety Generalized deconditioning Full code Discharge disposition Patient is being discharged in a stable condition with guarded prognosis to home. Patient will follow-up with Dr. Tory Gonzalez in the outpatient setting upon discharge. Patient is to continue with maximizing medical management as discussed. Recommend cardiology and pulmonary follow up outpatient. Total time taken is greater than 35 minutes. Hospital course This is a 76-year-old female who was recently admitted with chest pain with associated shortness of breath. Patient was continued on telemetry monitoring with cardiology and pulmonary following. Patient underwent cardiac catheterization with mild disease noted and no stents were placed. Medication adjustments made by cardiology. Patient medically stable for discharge today. Patient has been cleared by cardiology for close outpatient follow up. Patient also to follow up with pulmonary outpatient and complete a short prednisone taper on discharge. Patient has received empiric antibiotic while hospitalized and no white count nor fevers during hospitalization. No antibiotics on discharge. Currently no reports of chest pain, shortness of breath, or palpitations. Patient is on 2 L via NC and reports she wears oxygen outpatient. Patient is afebrile. No reports of nausea or vomiting and patient is tolerating diet. Patient will be discharge home today. Guarded prognosis. 12/22/2021 Patient appealed the discharge last night as she felt she was not ready for di scharge. Patient has been seen and evaluated by consultations and cleared for discharge. Patient vss and reports to feeling well for discharge. Instructed patient to follow up with consults as scheduled along with primary care provider. Physical exam: Gen: This is a 76 year old female who is awake, alert,and oriented x3. well developed, well nourished HEENT: Head is atraumatic, normocephalic. Pupils equal, round. Sclerae is anicteric. NECK: Supple. No JVD. No lymphadenopathy. No thyromegaly. LUNGS: diminished breath sounds bilaterally with some mild rhonchi noted. No intercostal retractions. HEART: S1, S2 muffled ABDOMEN: Soft. Bowel sounds are present. No masses. No tenderness. EXTREMITIES: No pedal edema. No calf tenderness. NEUROLOGICAL: Patient is awake, alert and oriented x3. Cranial nerves 2 through 12 are grossly intact. Please refer to medication reconciliation sheet for a list of medications. The impression and plan of care has been dictated by Janell Luevano, Nurse Practitioner as directed. Dr. Mariely MD I have performed a history and examination and MDM of this patient, discussed the same with the dictator, and agree with the dictator's assessment and plan as written ,documented as a scribe. Based on total visit time, I have performed more than 50% of the visit. Patient Condition at Discharge: Stable Plan - Discharge Summary Discharge Rx Participant: No New Discharge Prescriptions: New Budesonide-Formot 160-4.5 Mcg [Symbicort 160-4.5 Mcg Inhaler] 2 puff INHALATION RT-BID #1 inh Ipratropium-Albuterol Nebulize [Duoneb 0.5 mg-3 mg/3 ml Soln] 3 ml INHALATION RT-QID #100 each predniSONE 10 mg PO DAILY #15 tab lisinopriL [Zestril] 2.5 mg PO DAILY #90 tab Ipratropium-Albuterol Nebulize [Duoneb 0.5 mg-3 mg/3 ml Soln] 3 ml INHALATION RT-Q2H PRN each PRN Reason: Shortness Of Breath Or Wheezing Metoprolol Succinate (ER) [Toprol XL] 50 mg PO DAILY 30 Days #30 tab Continue Simvastatin [Zocor] 40 mg PO HS Montelukast Sodium [Singulair] 10 mg PO HS Sertraline [Zoloft] 200 mg PO DAILY Omeprazole 20 mg PO DAILY ALPRAZolam [Xanax] 0.5 mg PO TID Albuterol Sulfate [Ventolin HFA] 2 puff INHALATION RT-Q4H PRN PRN Reason: Shortness Of Breath Ipratropium/Albuterol Sulfate [Combivent Respimat Inhaler] 1 puff INHALATION RT-QID Acetaminophen [Tylenol Extra Strength] 1,000 mg PO Q6H PRN PRN Reason: Fever And/ Or Pain Ondansetron [Zofran] 4 mg PO Q8HR PRN #20 tab PRN Reason: Nausea Discontinued Diltiazem Cd [Cardizem CD] 240 mg PO DAILY lisinopriL [Zestril] 20 mg PO DAILY Discharge Medication List Simvastatin [Zocor] 40 mg PO HS 02/20/15 [History] Montelukast Sodium [Singulair] 10 mg PO HS 03/01/16 [History] Albuterol Sulfate [Ventolin HFA] 2 puff INHALATION RT-Q4H PRN 06/20/21 [History] Ipratropium/Albuterol Sulfate [Combivent Respimat Inhaler] 1 puff INHALATION RT- QID 06/20/21 [History] Omeprazole 20 mg PO DAILY 06/20/21 [History] Sertraline [Zoloft] 200 mg PO DAILY 06/20/21 [History] ALPRAZolam [Xanax] 0.5 mg PO TID 11/08/21 [History] Acetaminophen [Tylenol Extra Strength] 1,000 mg PO Q6H PRN 11/08/21 [History] Budesonide-Formot 160-4.5 Mcg [Symbicort 160-4.5 Mcg Inhaler] 2 puff INHALATION RT-BID #1 inh 12/20/21 [Rx] predniSONE 10 mg PO DAILY #15 tab 12/20/21 [Rx] lisinopriL [Zestril] 2.5 mg PO DAILY #90 tab 12/21/21 [Rx] Ipratropium-Albuterol Nebulize [Duoneb 0.5 mg-3 mg/3 ml Soln] 3 ml INHALATION RT-Q2H PRN each 12/22/21 [Rx] Ipratropium-Albuterol Nebulize [Duoneb 0.5 mg-3 mg/3 ml Soln] 3 ml INHALATION RT-QID #100 each 12/22/21 [Rx] Metoprolol Succinate (ER) [Toprol XL] 50 mg PO DAILY 30 Days #30 tab 12/22/21 [Rx] Ondansetron [Zofran] 4 mg PO Q8HR PRN #20 tab 12/22/21 [Rx] Follow up Appointment(s)/Referral(s): Grayson Allen MD [STAFF PHYSICIAN] - 1 Week (Call to make an appointment ) Tory Gonzalez MD [Primary Care Provider] - 12/27/21 1:00 pm [facility], [NON-STAFF] - Ja Smith MD [STAFF PHYSICIAN] - 1 Week (Call office for appointment ) Activity/Diet/Wound Care/Special Instructions: Activity Limited until follow-up Follow-up with primary care provider on discharge Continue taking medications as prescribed Follow-up with cardiology outpatient Follow-up pulmonary outpatient Discharge Disposition: HOME WITH HOME HEALTH SERVICES
== END 2021-12-22 14:46 | disposition home health service (06) | DRG 202 ==
LOC: EC 17:55 → 3SCARD 21:34
PROVIDERS: ADMIT Internal Medicine; ATTEND Internal Medicine
PROC: 4A023N7 Measurement of Cardiac Sampling and Pressure, Left Heart, Percutaneous Approach (ICD-10-PCS; 2021-12-20)
PROC: B2111ZZ Fluoroscopy of Multiple Coronary Arteries using Low Osmolar Contrast (ICD-10-PCS; principal; 2021-12-20 13:30)
DX: J45.901 Unspecified asthma with (acute) exacerbation (principal); J96.21 Acute and chronic respiratory failure with hypoxia; I42.8 Other cardiomyopathies; I47.1 Supraventricular tachycardia; N39.0 Urinary tract infection, site not specified; J44.9 Chronic obstructive pulmonary disease, unspecified; I11.9 Hypertensive heart disease without heart failure; F32.A Depression, unspecified; I70.0 Atherosclerosis of aorta; I95.9 Hypotension, unspecified; J84.10 Pulmonary fibrosis, unspecified; Z99.81 Dependence on supplemental oxygen; Z20.822 Contact with and (suspected) exposure to COVID-19; K80.20 Calculus of gallbladder without cholecystitis without obstruction; E78.5 Hyperlipidemia, unspecified; I25.10 Atherosclerotic heart disease of native coronary artery without angina pectoris; J98.4 Other disorders of lung; M48.54XS Collapsed vertebra, not elsewhere classified, thoracic region, sequela of fracture; F41.9 Anxiety disorder, unspecified; E86.0 Dehydration; I48.91 Unspecified atrial fibrillation; K21.9 Gastro-esophageal reflux disease without esophagitis; R26.81 Unsteadiness on feet; I34.0 Nonrheumatic mitral (valve) insufficiency; I34.81 Nonrheumatic mitral (valve) annulus calcification; Z28.310 Unvaccinated for COVID-19; Z79.899 Other long term (current) drug therapy; Z79.51 Long term (current) use of inhaled steroids; Z87.891 Personal history of nicotine dependence
CPT/HCPCS: 36415; 71045; 71275; 80048; 80053; 81001; 83605; 83880; 84484; 85025; 85379; 85610; 85730; 87636; 93005; 93306; 93458; 94640; 94760; 96374; 99291

== ENCOUNTER 2021-12-27 09:30 | Observation (INO) | payer MEDICARE, OTHER ==
--- NOTE | 2021-12-27 10:20 | ED ---
SOB HPI - General Chief Complaint: Shortness of Breath Stated Complaint: KERI Time Seen by Provider: 12/27/21 09:45 Source: patient, RN notes reviewed Mode of arrival: EMS Limitations: no limitations - History of Present Illness Initial Comments: A 76 year old female present to the ER via EMS with a chief complaint of shortness of breath. She states this began last night. She is normally on 2L oxygen at home and has not increased it. She reports sleeping on 2 pillows at to help with her breathing. She admits to a cough and occasional wheezing. She also endorses nightsweats and chills. She reports numbness in her bilateral upper and lower extremities. Denies recent falls or injuries. Patient was sent in via EMS from Dr. Lai office for evaluation. Patient did have heart cath last week by Dr. Allen. Patient had mild coronary changes no stents placed. - Related Data Home Medications Medication Instructions Recorded Confirmed Simvastatin [Zocor] 40 mg PO HS 02/20/15 12/27/21 Montelukast Sodium [Singulair] 10 mg PO HS 03/01/16 12/27/21 Albuterol Sulfate [Ventolin HFA] 2 puff INHALATION RT-Q4H PRN 06/20/21 12/27/21 Ipratropium/Albuterol Sulfate 1 puff INHALATION RT-QID 06/20/21 12/27/21 [Combivent Respimat Inhaler] Omeprazole 20 mg PO DAILY 06/20/21 12/27/21 Sertraline [Zoloft] 200 mg PO DAILY 06/20/21 12/27/21 ALPRAZolam [Xanax] 0.5 mg PO TID 11/08/21 12/27/21 Acetaminophen [Tylenol Extra 1,000 mg PO Q6H PRN 11/08/21 12/27/21 Strength] Previous Rx's Medication Instructions Recorded Budesonide-Formot 160-4.5 Mcg 2 puff INHALATION RT-BID #1 inh 12/20/21 [Symbicort 160-4.5 Mcg Inhaler] lisinopriL [Zestril] 2.5 mg PO DAILY #90 tab 12/21/21 Ipratropium-Albuterol Nebulize 3 ml INHALATION RT-Q2H PRN each 12/22/21 [Duoneb 0.5 mg-3 mg/3 ml Soln] Ipratropium-Albuterol Nebulize 3 ml INHALATION RT-QID #100 each 12/22/21 [Duoneb 0.5 mg-3 mg/3 ml Soln] Metoprolol Succinate (ER) [Toprol 50 mg PO DAILY 30 Days #30 tab 12/22/21 XL] Ondansetron [Zofran] 4 mg PO Q8HR PRN #20 tab 12/22/21 Allergies Allergy/AdvReac Type Severity Reaction Status Date / Time No Known Allergies Allergy Verified 12/27/21 11:59 Review of Systems ROS Statement: Those systems with pertinent positive or pertinent negative responses have been documented in the HPI. ROS Other: All systems not noted in ROS Statement are negative. Past Medical History Past Medical History: Asthma, Chest Pain / Angina, COPD, GERD/Reflux, Hyperlipidemia, Hypertension, Pneumonia Additional Past Medical History / Comment(s): oxygen NC @2L continuous, gallstones, pernicious anemia History of Any Multi-Drug Resistant Organisms: None Reported Past Surgical History: Hernia Repair, Joint Replacement, Orthopedic Surgery, Tonsillectomy Additional Past Surgical History / Comment(s): left elbow surgery, abscess in stomach area, abdominial scar tissue, tamie oophorectomy, left knee surgery, left hip replacement Past Anesthesia/Blood Transfusion Reactions: No Reported Reaction Past Psychological History: Anxiety, Depression Smoking Status: Former smoker Past Alcohol Use History: None Reported Past Drug Use History: None Reported - Past Family History Mother Family Medical History: No Reported History Additional Family Medical History / Comment(s): MS Father Family Medical History: CVA/TIA, Myocardial Infarction ([place]) Additional Family Medical History / Comment(s): ETOH General Exam Limitations: no limitations General appearance: alert, in no apparent distress Head exam: Present: atraumatic, normocephalic, normal inspection Eye exam: Present: normal appearance, PERRL, EOMI. Absent: scleral icterus, conjunctival injection, periorbital swelling ENT exam: Present: normal exam, mucous membranes moist Neck exam: Present: normal inspection. Absent: tenderness, meningismus, lymphadenopathy Respiratory exam: Present: wheezes, decreased breath sounds, other (barrel chest, on 2L O2). Absent: normal lung sounds bilaterally, respiratory distress, rales, rhonchi, stridor Cardiovascular Exam: Present: regular rate, normal rhythm, normal heart sounds. Absent: systolic murmur, diastolic murmur, rubs, gallop, clicks GI/Abdominal exam: Present: tenderness (bilateral lower quadrant tenderness on palpitation) Extremities exam: Present: normal inspection, full ROM, normal capillary refill. Absent: tenderness, pedal edema, joint swelling, calf tenderness Back exam: Present: normal inspection Neurological exam: Present: alert, oriented X3, CN II-XII intact Psychiatric exam: Present: normal affect, normal mood Skin exam: Present: warm, dry, intact, normal color. Absent: rash Course Vital Signs 12/27/21 12/27/21 12/27/21 09:32 09:54 11:30 Temperature 98.2 F Pulse Rate 77 71 Pulse Rate [ Pulse Oximetery ] Respiratory 20 20 18 Rate Blood Pressure 146/95 132/83 Blood Pressure [Left Arm] Blood Pressure [Right Arm] O2 Sat by Pulse 99 98 Oximetry 12/27/21 12/27/21 14:30 14:52 Temperature 98.3 F Pulse Rate 78 Pulse Rate [ 80 Pulse Oximetery ] Respiratory 18 18 Rate Blood Pressure 75/51 Blood Pressure 101/59 [Left Arm] Blood Pressure 100/58 [Right Arm] O2 Sat by Pulse 96 96 Oximetry Medical Decision Making - Medical Decision Making 76-year-old presents for shortness breath. Patient elevated troponin, patient has some mild EKG changes I did discuss case with cardiology patient will be observed for repeat troponin given recent heart cath. I initially discussed case with opposition felt the patient may be better suited with [facility] as patient was recently discharged from their services. - Lab Data Result diagrams: 12/27/21 10:07 12/27/21 10:07 Lab Results 12/27/21 12/27/21 12/27/21 Range/Units 10:07 10:07 10:07 WBC 8.7 (3.8-10.6) k/uL RBC 4.84 (3.80-5.40) m/uL Hgb 12.7 (11.4-16.0) gm/dL Hct 40.7 (34.0-46.0) % MCV 84.1 (80.0-100.0) fL MCH 26.3 (25.0-35.0) pg MCHC 31.2 (31.0-37.0) g/dL RDW 17.5 H (11.5-15.5) % Plt Count 286 (150-450) k/uL MPV 8.2 Neutrophils % 80 % Lymphocytes % 13 % Monocytes % 5 % Eosinophils % 1 % Basophils % 0 % Neutrophils # 7.0 (1.3-7.7) k/uL Lymphocytes # 1.2 (1.0-4.8) k/uL Monocytes # 0.4 (0-1.0) k/uL Eosinophils # 0.1 (0-0.7) k/uL Basophils # 0.0 (0-0.2) k/uL Hypochromasia Moderate Anisocytosis Slight PT 10.4 (9.0-12.0) sec INR 0.9 (<1.2) APTT 23.7 (22.0-30.0) sec Sodium 135 L (137-145) mmol/L Potassium 3.7 (3.5-5.1) mmol/L Chloride 99 (98-107) mmol/L Carbon Dioxide 27 (22-30) mmol/L Anion Gap 9 mmol/L BUN 11 (7-17) mg/dL Creatinine 0.45 L (0.52-1.04) mg/dL Est GFR (CKD-EPI)AfAm >90 (>60 ml/min/1.73 sqM) Est GFR (CKD-EPI)NonAf >90 (>60 ml/min/1.73 sqM) Glucose 92 (74-99) mg/dL Calcium 8.8 (8.4-10.2) mg/dL Magnesium 2.1 (1.6-2.3) mg/dL Total Bilirubin 0.5 (0.2-1.3) mg/dL AST 25 (14-36) U/L ALT 16 (4-34) U/L Alkaline Phosphatase 53 (38-126) U/L Troponin I (0.000-0.034) ng/mL NT-Pro-B Natriuret Pep pg/mL Total Protein 5.6 L (6.3-8.2) g/dL Albumin 3.5 (3.5-5.0) g/dL Urine Color Urine Appearance (Clear) Urine pH (5.0-8.0) Ur Specific [place] (1.001-1.035) Urine Protein (Negative) Urine Glucose (UA) (Negative) Urine Ketones (Negative) Urine Blood (Negative) Urine Nitrite (Negative) Urine Bilirubin (Negative) Urine Urobilinogen (<2.0) mg/dL Ur Leukocyte Esterase (Negative) 12/27/21 12/27/21 12/27/21 Range/Units 10:07 10:07 12:07 WBC (3.8-10.6) k/uL RBC (3.80-5.40) m/uL Hgb (11.4-16.0) gm/dL Hct (34.0-46.0) % MCV (80.0-100.0) fL MCH (25.0-35.0) pg MCHC (31.0-37.0) g/dL RDW (11.5-15.5) % Plt Count (150-450) k/uL MPV Neutrophils % % Lymphocytes % % Monocytes % % Eosinophils % % Basophils % % Neutrophils # (1.3-7.7) k/uL Lymphocytes # (1.0-4.8) k/uL Monocytes # (0-1.0) k/uL Eosinophils # (0-0.7) k/uL Basophils # (0-0.2) k/uL Hypochromasia Anisocytosis PT (9.0-12.0) sec INR (<1.2) APTT (22.0-30.0) sec Sodium (137-145) mmol/L Potassium (3.5-5.1) mmol/L Chloride (98-107) mmol/L Carbon Dioxide (22-30) mmol/L Anion Gap mmol/L BUN (7-17) mg/dL Creatinine (0.52-1.04) mg/dL Est GFR (CKD-EPI)AfAm (>60 ml/min/1.73 sqM) Est GFR (CKD-EPI)NonAf (>60 ml/min/1.73 sqM) Glucose (74-99) mg/dL Calcium (8.4-10.2) mg/dL Magnesium (1.6-2.3) mg/dL Total Bilirubin (0.2-1.3) mg/dL AST (14-36) U/L ALT (4-34) U/L Alkaline Phosphatase (38-126) U/L Troponin I 0.077 H* (0.000-0.034) ng/mL NT-Pro-B Natriuret Pep 1760 pg/mL Total Protein (6.3-8.2) g/dL Albumin (3.5-5.0) g/dL Urine Color Light Yellow Urine Appearance Clear (Clear) Urine pH 7.5 (5.0-8.0) Ur Specific [place] 1.008 (1.001-1.035) Urine Protein Negative (Negative) Urine Glucose (UA) Negative (Negative) Urine Ketones Negative (Negative) Urine Blood Negative (Negative) Urine Nitrite Negative (Negative) Urine Bilirubin Negative (Negative) Urine Urobilinogen <2.0 (<2.0) mg/dL Ur Leukocyte Esterase Negative (Negative) Disposition Clinical Impression: NSTEMI (non-ST elevated myocardial infarction), Weakness, Dyspnea Disposition: ADMITTED IP TO THIS HOSP Condition: Fair Time of Disposition: 11:27
[2021-12-27 10:25] LABS: Anisocytosis Slight; Basophils % (A) 0 %; Eosinophils # (A) 0.1 k/uL (0-0.7); Eosinophils % (A) 1 %; HCT 40.7 % (34.0-46.0); HGB 12.7 gm/dL (11.4-16.0); Hypochromasia Moderate; Lymphocytes # (A) 1.2 k/uL (1.0-4.8); Lymphocytes % (A) 13 %; MCH 26.3 pg (25.0-35.0); MCHC 31.2 g/dL (31.0-37.0); MCV 84.1 fL (80.0-100.0); Mean Platelet Volume 8.2; Monocytes # (A) 0.4 k/uL (0-1.0); Monocytes % (A) 5 %; Neutrophils % (A) 80 %; Platelet Count 286 k/uL (150-450); RBC 4.84 m/uL (3.80-5.40); RDW 17.5 % (11.5-15.5); WBC 8.7 k/uL (3.8-10.6)
[2021-12-27 10:34] LABS: INR 0.9 (<1.2); Partial Thromboplastin Time 23.7 sec (22.0-30.0); Prothrombin Time 10.4 sec (9.0-12.0)
[2021-12-27 10:37] LABS: ALT 16 U/L (4-34); AST 25 U/L (14-36); African American GFR (CKD) >90 (>60 ml/min/1.73 sqM); Albumin 3.5 g/dL (3.5-5.0); Alkaline Phosphatase 53 U/L (38-126); Anion Gap 9 mmol/L; Blood Urea Nitrogen 11 mg/dL (7-17); Calcium 8.8 mg/dL (8.4-10.2); Carbon Dioxide 27 mmol/L (22-30); Chloride 99 mmol/L (98-107); Glucose 92 mg/dL (74-99); Magnesium 2.1 mg/dL (1.6-2.3); Non-African American GFR(CKD) >90 (>60 ml/min/1.73 sqM); Potassium 3.7 mmol/L (3.5-5.1); Sodium 135 mmol/L (137-145); Total Bilirubin 0.5 mg/dL (0.2-1.3); Total Protein 5.6 g/dL (6.3-8.2)
--- NOTE | 2021-12-27 10:44 | XR ---
EXAMINATION TYPE: XR chest 2V DATE OF EXAM: 12/27/2021 COMPARISON: Chest x-ray December 17, 2021 HISTORY: Difficulty in breathing. TECHNIQUE: Frontal and lateral views of the chest are obtained. FINDINGS: Background chronic emphysematous change is redemonstrated. There is no suspicious focal ai r space opacity, pleural effusion, or pneumothorax seen. The cardiac silhouette size is stable and w ithin normal limits. The osseous structures are demineralized. IMPRESSION: Chronic emphysematous change without acute pulmonary process.
[2021-12-27] MEDS ORDERED: ASPIRIN 81 MG PO STA (12:07)
[2021-12-27] MEDS ORDERED: NITROGLYCERIN SL TABS 0.4 MG TAB SUBLINGUAL PRN (12:07)
[2021-12-27 12:16] LABS: Appearance,Urine Clear (Clear); Bilirubin,Urine Negative (Negative); Blood,Urine Negative (Negative); Color,Urine Light Yellow; Glucose,Urine (UA) Negative (Negative); Ketones,Urine Negative (Negative); Leukocyte Esterase,Urine Negative (Negative); Nitrite,Urine Negative (Negative); PH, Urine 7.5 (5.0-8.0); Protein,Urine Negative (Negative); Specific Gravity,Urine 1.008 (1.001-1.035); Urobilinogen,Urine <2.0 mg/dL (<2.0)
--- NOTE | 2021-12-27 12:51 | P.HPIM ---
History of Present Illness 76-year-old female came in with complaints of shortness of breath does have history of COPD uses 2 L of oxygen saturating well on 2 L. Patient was given breathing treatments in ER. Patient is also found to have mildly elevated tro ponins of 0.007 although patient was admitted with non-ST elevation MT during her last hospital physician at the time her troponin was elevated to 0.6 at that time patient underwent Cardiac catheterization which showed some mild coronary artery disease that did not require any intervention. Apparently patient cardiology was consulted from ER and they recommended admission and monitoring overnight. Denied any chest pain EKG did not show any acute ST-T wave changes she is comparing of chest pressure-like sensation which is still there have shortness of breath completely resolved at this time REVIEW OF SYSTEMS: CONSTITUTIONAL: No fever, no malaise, no fatigue. HEENT: No recent visual problems or hearing problems. Denied any sore throat. CARDIOVASCULAR: No orthopnea, PND, no palpitations, no syncope. PULMONARY: no hemoptysis. GASTROINTESTINAL: No diarrhea, no nausea, no vomiting, no abdominal pain. NEUROLOGICAL: No headaches, no weakness, no numbness. HEMATOLOGICAL: Denies any bleeding or petechiae. GENITOURINARY: Denies any burning micturition, frequency, or urgency. MUSCULOSKELETAL/RHEUMATOLOGICAL: Denies any joint pain, swelling, or any muscle pain. ENDOCRINE: Denies any polyuria or polydipsia. The rest of the 14-point review of systems is negative. PHYSICAL EXAMINATION: GENERAL: The patient is alert and oriented x3, not in any acute distress. Well developed, well nourished. HEENT: Pupils are round and equally reacting to light. EOMI. No scleral icterus. No conjunctival pallor. Normocephalic, atraumatic. No pharyngeal erythema. No thyromegaly. CARDIOVASCULAR: S1 and S2 present. No murmurs, rubs, or gallops. PULMONARY: Chest is clear to auscultation, no wheezing or crackles. ABDOMEN: Soft, nontender, nondistended, normoactive bowel sounds. No palpable organomegaly. MUSCULOSKELETAL: No joint swelling or deformity. EXTREMITIES: No cyanosis, clubbing, or pedal edema. NEUROLOGICAL: Gross neurological examination did not reveal any focal deficits. SKIN: No rashes. Assessment and plan -Shortness of breath: Secondary to COPD exacerbation which improved patient is doing well regarding this perspective -Elevation of troponin I suspicion for myocardial infarction is low patient had a recent cardiac catheterization and this troponin and is downward from her last hospitalization -Gastroesophageal reflux disease -Hyperlipidemia -Chronic hypercapnic respiratory failure secondary to COPD uses 2 L of oxygen at home For depression DVT prophylaxis: On heparin Past Medical History Past Medical History: Asthma, Chest Pain / Angina, COPD, GERD/Reflux, Hyperlipidemia, Hypertension, Pneumonia Additional Past Medical History / Comment(s): oxygen NC @2L continuous, gallstones, pernicious anemia History of Any Multi-Drug Resistant Organisms: None Reported Past Surgical History: Hernia Repair, Joint Replacement, Orthopedic Surgery, Tonsillectomy Additional Past Surgical History / Comment(s): left elbow surgery, abscess in stomach area, abdominial scar tissue, tamie oophorectomy, left knee surgery, left hip replacement Past Anesthesia/Blood Transfusion Reactions: No Reported Reaction Past Psychological History: Anxiety, Depression Smoking Status: Former smoker Past Alcohol Use History: None Reported Past Drug Use History: None Reported - Past Family History Mother Family Medical History: No Reported History Additional Family Medical History / Comment(s): MS Father Family Medical History: CVA/TIA, Myocardial Infarction (MT) Additional Family Medical History / Comment(s): ETOH Medications and Allergies Home Medications Medication Instructions Recorded Confirmed Type Simvastatin [Zocor] 40 mg PO HS 02/20/15 12/27/21 History Montelukast Sodium [Singulair] 10 mg PO HS 03/01/16 12/27/21 History Albuterol Sulfate [Ventolin HFA] 2 puff INHALATION RT-Q4H PRN 06/20/21 12/27/21 History Ipratropium/Albuterol Sulfate 1 puff INHALATION RT-QID 06/20/21 12/27/21 History [Combivent Respimat Inhaler] Omeprazole 20 mg PO DAILY 06/20/21 12/27/21 History Sertraline [Zoloft] 200 mg PO DAILY 06/20/21 12/27/21 History ALPRAZolam [Xanax] 0.5 mg PO TID 11/08/21 12/27/21 History Acetaminophen [Tylenol Extra 1,000 mg PO Q6H PRN 11/08/21 12/27/21 History Strength] Budesonide-Formot 160-4.5 Mcg 2 puff INHALATION RT-BID #1 inh 12/20/21 12/27/21 Rx [Symbicort 160-4.5 Mcg Inhaler] lisinopriL [Zestril] 2.5 mg PO DAILY #90 tab 12/21/21 12/27/21 Rx Ipratropium-Albuterol Nebulize 3 ml INHALATION RT-Q2H PRN each 12/22/21 12/27/21 Rx [Duoneb 0.5 mg-3 mg/3 ml Soln] Ipratropium-Albuterol Nebulize 3 ml INHALATION RT-QID #100 each 12/22/21 12/27/21 Rx [Duoneb 0.5 mg-3 mg/3 ml Soln] Metoprolol Succinate (ER) [Toprol 50 mg PO DAILY 30 Days #30 tab 12/22/21 12/27/21 Rx XL] Ondansetron [Zofran] 4 mg PO Q8HR PRN #20 tab 12/22/21 12/27/21 Rx Allergies Allergy/AdvReac Type Severity Reaction Status Date / Time No Known Allergies Allergy Verified 12/27/21 11:59 Physical Exam Vitals: Vital Signs Temp Pulse Resp BP Pulse Ox 12/27/21 11:30 71 18 132/83 98 12/27/21 09:54 20 12/27/21 09:32 98.2 F 77 20 146/95 99 Intake and Output 12/26/21 12/27/21 12/27/21 22:59 06:59 14:59 Other: Weight 68.039 kg Results CBC & Chem 7: 12/27/21 10:07 12/27/21 10:07 Labs: Abnormal Lab Results - Last 24 Hours (Table) 12/27/21 12/27/21 12/27/21 Range/Units 10:07 10:07 10:07 RDW 17.5 H (11.5-15.5) % Sodium 135 L (137-145) mmol/L Creatinine 0.45 L (0.52-1.04) mg/dL Troponin I 0.077 H* (0.000-0.034) ng/mL Total Protein 5.6 L (6.3-8.2) g/dL
[2021-12-27] MEDS ORDERED: ACETAMINOPHEN TAB 500 MG TAB PO PRN (12:52)
[2021-12-27] MEDS ORDERED: ONDANSETRON 4 MG TAB PO PRN (12:52)
[2021-12-27] MEDS ORDERED: ALBUTEROL NEBULIZED 2.5 MG/3 ML INHALATION PRN (12:52)
[2021-12-27] MEDS ORDERED: IPRATROPIUM-ALBUTEROL 3 ML NEB INHALATION PRN (12:52)
--- NOTE | 2021-12-27 14:19 | P.CARDCATH ---
Date of Procedure: 12/27/21 Description of Procedure: History of Present Illness: The patient is a 76-year-old female with a known history of severe COPD, on home oxygen who presented with symptoms of worsening dyspnea and chest pressure. The chest pressure was worse with deep breathing. She had a cough. She was in the hospital recently with exacerbation of COPD and mild troponin elevation as well as evidence of cardiomyopathy. She underwent cardiac catheterization by Dr. Allen, I reviewed the images and it raises the question of spontaneous dissection in the mid distal LAD. She denies any PND, orthopnea or peripheral edema. She has no dizziness, palpitations or syncope. She is followed on a regular basis by Dr. Gonzalez regarding her lung status. She has a history of hyperlipidemia and hypertension and a prior history of smoking. Her activity is limited but she has chronic dyspnea on exertion. In the emergency room her EKG showed T-wave inversion anteriorly, her troponin was 0.07 and 0.06. She was up to 0.937 on December 17 Medications: Zocor 40 mg daily, Singulair, Zestril 2.5 milligrams daily, Toprol 50 mg daily, Combivent, Singulair,, Symbicort, Zofran Review of Systems: Respiratory: She has chronic dyspnea on exertion with chronic COPD on home oxygen GI: No nausea or vomiting . No history of peptic ulcer disease. No recent GI bleed. : No hematuria or dysuria. Nervous System: No stroke or seizure. Physical Examination: 76-year-old female, alert and oriented no apparent distress ,Blood pressure 13 2/83, Heart rate 70 Head: Normocephalic. Eyes: Sclerae nonicteric. Neck: Good carotid upstroke, no bruit, no jugular venous distention. Lungs: Decreased breath sounds bilaterally with no significant wheezes Heart: Regular rate and rhythm, S1-S2, no S3, no rub. Systolic ejection murmur. Abdomen: Soft nontender, positive bowel sounds no organomegaly. Extremities: No edema, intact distal pulses. Labs: BUN 11, creatinine 0.45, potassium 3.7, NT proBNP 1760. Troponin 0.07 and 0.06. Hemoglobin 12.7. Chest x-ray consistent with chronic emphysema and no infiltrate EKG: Sinus mechanism with T-wave inversion in the anterolateral leads Impression: 1. Exacerbation of COPD in a patient with known history of chronic obstructive lung disease on home oxygen 2. T-wave changes anteriorly consistent with anterior wall ischemia, her most recent cardiac catheterization on December 20 showed possible spontaneous dissection of the distal LAD. The troponin elevation is on a downward trend. 3. Cardiomyopathy on recent echo, probably secondary to spontaneous dissection 4. History of hyperlipidemia 5. History of SVT Plan: 1. Continue beta kylie and JOB inhibitor 2. Add spironolactone 3. Repeat echocardiogram 4. Depending on her progress further recommendations will be made 5. Thank you for this consult we will follow with you.
[2021-12-27] MEDS: SPIRONOLACTONE 25 MG TAB PO SCH (14:45)
[2021-12-27] MEDS: ALPRAZolam 0.5 MG TAB PO SCH ×2 (15:13→21:15)
[2021-12-27] MEDS: IPRATROPIUM-ALBUTEROL 3 ML NEB INHALATION SCH ×2 (15:20→20:14)
--- NOTE | 2021-12-27 17:01 | CA ---
Transthoracic Echo Report Name: Cesia Fried Age: 76 Gender: F : 1945 Exam Date: 12/27/2021 15:07 Exam Location: [facility] Ht (in): 63 Wt (lb): 150 Ordering Physician: Cherie Hernandez MD ([id number]) Attending/Referring Phys: [employer] Beckie Michel RDCS Procedure CPT: Indications: LVF Cardiac Hx: Technical Quality: Fair Contrast 1: Total Dose (mL): Contrast 2: Total Dose (mL): MEASUREMENTS (Male / Female) Normal Values 2D ECHO LV Diastolic Diameter PLAX 4.2 cm 4.2 - 5.9 / 3.9 - 5.3 cm LV Systolic Diameter PLAX 3.4 cm IVS Diastolic Thickness 1.0 cm 0.6 - 1.0 / 0.6 - 0.9 cm LVPW Diastolic Thickness 1.0 cm 0.6 - 1.0 / 0.6 - 0.9 cm LV Relative Wall Thickness 0.5 FINDINGS Left Ventricle Limited study. Moderately reduced global left ventricular systolic function. Left ventricular ejection fraction is estimated at 35-40 %. Right Ventricle Right Atrium Left Atrium Mitral Valve Aortic Valve Tricuspid Valve Pulmonic Valve Pericardium No pericardial effusion. Aorta CONCLUSIONS No pericardial effusion Moderate LV dysfunction Previewed by: Dr. Jaskaran Schaefer MD (Electronically Signed) Final Date: 27 December 2021 17:01
[2021-12-27] MEDS: SYMBICORT 160-4.5 MCG INHALER INHALATION SCH (20:14)
[2021-12-27] MEDS ORDERED: ATORVASTATIN 20 MG TAB PO SCH (21:00)
[2021-12-27] MEDS ORDERED: MONTELUKAST 10 MG TAB PO SCH (21:00)
[2021-12-28 04:29] VITALS: RESP 18
[2021-12-28] MEDS: SPIRONOLACTONE 25 MG TAB PO SCH (08:15)
[2021-12-28] MEDS: ALPRAZolam 0.5 MG TAB PO SCH ×2 (08:15→15:03)
[2021-12-28 08:55] LABS: African American GFR (CKD) >90 (>60 ml/min/1.73 sqM); Anion Gap 6 mmol/L; Blood Urea Nitrogen 12 mg/dL (7-17); Calcium 8.6 mg/dL (8.4-10.2); Carbon Dioxide 28 mmol/L (22-30); Chloride 103 mmol/L (98-107); Glucose 90 mg/dL (74-99); Non-African American GFR(CKD) >90 (>60 ml/min/1.73 sqM); Potassium 4.3 mmol/L (3.5-5.1); Sodium 137 mmol/L (137-145)
[2021-12-28] MEDS ORDERED: PANTOPRAZOLE 40 MG TABLET PO SCH (09:00)
[2021-12-28] MEDS ORDERED: ASPIRIN 81 MG PO SCH (09:00)
[2021-12-28] MEDS ORDERED: ASPIRIN 325 MG TAB PO SCH (09:00)
[2021-12-28] MEDS ORDERED: SERTRALINE 100 MG TAB PO SCH (09:00)
[2021-12-28] MEDS ORDERED: METOPROLOL SUCCINATE (ER) 50 MG TAB.ER.24H PO SCH (09:00)
[2021-12-28] MEDS: IPRATROPIUM-ALBUTEROL 3 ML NEB INHALATION SCH ×2 (09:18→12:03)
[2021-12-28] MEDS: SYMBICORT 160-4.5 MCG INHALER INHALATION SCH (09:18)
--- NOTE | 2021-12-28 11:48 | P.PN ---
Subjective Progress Note Date: 12/28/21 HISTORY OF PRESENT ILLNESS: The patient is a 76-year-old female with a known history of severe COPD, on home oxygen who presented with symptoms of worsening dyspnea and chest pressure. The chest pressure was worse with deep breathing. She had a cough. She was in the hospital recently with exacerbation of COPD and mild troponin elevation as well as evidence of cardiomyopathy. She underwent cardiac catheterization by Dr. Allen, I reviewed the images and it raises the question of spontaneous dissection in the mid distal LAD. She denies any PND, orthopnea or peripheral edema. She has no dizziness, palpitations or syncope. She is followed on a regular basis by Dr. Gonzalez regarding her lung status. She has a history of hyperlipidemia and hypertension and a prior history of smoking. Her activity is limited but she has chronic dyspnea on exertion. In the emergency room her EKG showed T-wave inversion anteriorly, her troponin was 0.07 and 0.06. She was up to 0.937 on December 17 Medications: Zocor 40 mg daily, Singulair, Zestril 2.5 milligrams daily, Toprol 50 mg daily, Combivent, Singulair,, Symbicort, Zofran 12/28/2021 Patient examined this morning at the bedside. She states she is feeling unwell this morning. She denies any chest pain or pressure. Reports mild SOB. She remains on oxygen. She reports nausea but no vomiting. She reports tingling to her extremities. Echocardiogram obtained revealing ejection fraction 35-40%. PHYSICAL EXAM: VITAL SIGNS: Reviewed. GENERAL: Well-developed in no acute distress. NECK: Supple. No JVD or thyromegaly LUNGS: Respirations even and unlabored. Lungs essentially clear to auscultation bilaterally. HEART: Regular rate and rhythm. S1 and S2 heard. + systolic murmur. EXTREMITIES: Normal range of motion. No clubbing or cyanosis. Peripheral pulses intact. No lower extremity edema ASSESSMENT: 1. Exacerbation of COPD in a patient with known history of chronic obstructive lung disease on home oxygen 2. T-wave changes anteriorly consistent with anterior wall ischemia, her most recent cardiac catheterization on December 20 showed possible spontaneous dissection of the distal LAD. The troponin elevation is on a downward trend. 3. Cardiomyopathy on recent echo, probably secondary to spontaneous dissection 4. History of hyperlipidemia 5. History of SVT PLAN: Continue current cardiac medications Obtain D-Dimer. If abnormal, obtain CTA to rule out PE Further recommendations pending patient course Nurse practitioner note has been reviewed by physician. Signing provider agrees with the documented findings, assessment, and plan of care. Objective - Vital Signs Vital signs: Vital Signs Temp 97.9 F 12/28/21 08:17 Pulse 68 12/28/21 09:31 Resp 18 12/28/21 09:31 BP 119/64 12/28/21 08:17 Pulse Ox 99 12/28/21 09:18 FiO2 Intake & Output 12/27/21 12/28/21 12/28/21 18:59 06:59 18:59 Intake Total 360 Balance 360 Weight 68.039 kg Intake: Oral 360 Other: Voiding Method Bedside Commode Bedside Commode # Voids 1 - Labs CBC & Chem 7: 12/27/21 10:07 12/28/21 07:52 Labs: Abnormal Lab Results - Last 24 Hours (Table) 12/27/21 12/27/21 12/28/21 Range/Units 12:41 16:10 10:16 D-Dimer 0.80 H (<0.60) mg/L FEU Troponin I 0.061 H* 0.068 H* (0.000-0.034) ng/mL
--- NOTE | 2021-12-28 13:02 | CT ---
EXAMINATION TYPE: CT chest angio for PE DATE OF EXAM: 12/28/2021 COMPARISON: 12/17/2021 HISTORY: PE CT DLP: 265.8 mGycm CONTRAST: CT chest with contrast and 3D reconstruction with MIP imaging is performed with IV Contrast, patient injected with 60 mL of Isovue 370. Contrast-enhanced CT of the chest was performed through the course of the pulmonary arteries with ramón g and mediastinal window settings submitted. 3D reconstruction with MIP imaging was also performed. PULMONARY ARTERIES: The pulmonary arteries and their major tributaries are patent. I do not see analilia dence for sizable filling defect to suggest pulmonary embolic process. LUNGS: The lungs are clear and free of infiltrate. No evidence for atelectasis. No pulmonary nodule or mass is detected. No pleural effusion. MEDIASTINUM: Thoracic aorta is of normal caliber.Correlate clinically . The heart is not enlarged. No evidence for mediastinal mass. No mediastinal lymph nodes greater than 1cm. HILAR STRUCTURES: No evidence for mass. No hilar lymph nodes greater than 1 cm. UPPER ABDOMEN: Cholelithiasis noted. IMPRESSION: 1. No evidence for Pulmonary embolism at this time.
[2021-12-28 13:12] VITALS: BP 144/68; PULSE 110; TEMP 98.9
--- NOTE | 2021-12-28 13:34 | P.DS ---
Providers Date of admission: 12/27/21 12:19 Attending physician: Anay Schuster Consults: 12/27/21 12:07 Consult Physician Urgent Consulting Provider: Cherie Hernandez Consult Reason/Comments: chest pain Do you want consulting provider notified?: Yes Primary care physician: Tory Gonzalez [facility] Course: 76-year-old female admitted with COPD exacerbation COPD improved. Patient will also comparing of chest pain patient had recent cardiac catheterization which did not require any intervention although said there is some mild disease and the cardiology wanted to monitor 1 more night because of which patient was admitted patient. Patient had mildly elevated d-dimer because of which patient underwent CT angios the chest which did not show any pulmonary embolism. Patient is clinically doing well will be discharged today. PHYSICAL EXAMINATION: GENERAL: The patient is alert and oriented x3, not in any acute distress. Well developed, well nourished. HEENT: Pupils are round and equally reacting to light. EOMI. No scleral icterus. No conjunctival pallor. Normocephalic, atraumatic. No pharyngeal erythema. No thyromegaly. CARDIOVASCULAR: S1 and S2 present. No murmurs, rubs, or gallops. PULMONARY: Chest is clear to auscultation, no wheezing or crackles. ABDOMEN: Soft, nontender, nondistended, normoactive bowel sounds. No palpable organomegaly. MUSCULOSKELETAL: No joint swelling or deformity. EXTREMITIES: No cyanosis, clubbing, or pedal edema. NEUROLOGICAL: Gross neurological examination did not reveal any focal deficits. SKIN: No rashes. Assessment and plan -Mild COPD exacerbation improved -Chest pain rule out acute coronary syndromes and rule out pulmonary embolism For rest of the medical problems please refer to my H&P for further details Patient Condition at Discharge: Fair Plan - Discharge Summary Discharge Rx Participant: No New Discharge Prescriptions: New Spironolactone [Aldactone] 25 mg PO DAILY #30 tab Aspirin 81 mg PO DAILY #30 tab Nitroglycerin Sl Tabs [Nitrostat] 0.4 mg SUBLINGUAL Q5M PRN #30 tab PRN Reason: Chest Pain Continue Simvastatin [Zocor] 40 mg PO HS Montelukast Sodium [Singulair] 10 mg PO HS Sertraline [Zoloft] 200 mg PO DAILY Omeprazole 20 mg PO DAILY ALPRAZolam [Xanax] 0.5 mg PO TID Budesonide-Formot 160-4.5 Mcg [Symbicort 160-4.5 Mcg Inhaler] 2 puff INHALATION RT-BID #1 inh Ipratropium-Albuterol Nebulize [Duoneb 0.5 mg-3 mg/3 ml Soln] 3 ml INHALATION RT-QID #100 each Albuterol Sulfate [Ventolin HFA] 2 puff INHALATION RT-Q4H PRN PRN Reason: Shortness Of Breath Ipratropium/Albuterol Sulfate [Combivent Respimat Inhaler] 1 puff INHALATION RT-QID Acetaminophen [Tylenol Extra Strength] 1,000 mg PO Q6H PRN PRN Reason: Fever And/ Or Pain lisinopriL [Zestril] 2.5 mg PO DAILY #90 tab Ipratropium-Albuterol Nebulize [Duoneb 0.5 mg-3 mg/3 ml Soln] 3 ml INHALATION RT-Q2H PRN each PRN Reason: Shortness Of Breath Or Wheezing Metoprolol Succinate (ER) [Toprol XL] 50 mg PO DAILY 30 Days #30 tab Ondansetron [Zofran] 4 mg PO Q8HR PRN #20 tab PRN Reason: Nausea Discharge Medication List Simvastatin [Zocor] 40 mg PO HS 02/20/15 [History] Montelukast Sodium [Singulair] 10 mg PO HS 03/01/16 [History] Albuterol Sulfate [Ventolin HFA] 2 puff INHALATION RT-Q4H PRN 06/20/21 [History] Ipratropium/Albuterol Sulfate [Combivent Respimat Inhaler] 1 puff INHALATION RT- QID 06/20/21 [History] Omeprazole 20 mg PO DAILY 06/20/21 [History] Sertraline [Zoloft] 200 mg PO DAILY 06/20/21 [History] ALPRAZolam [Xanax] 0.5 mg PO TID 11/08/21 [History] Acetaminophen [Tylenol Extra Strength] 1,000 mg PO Q6H PRN 11/08/21 [History] Budesonide-Formot 160-4.5 Mcg [Symbicort 160-4.5 Mcg Inhaler] 2 puff INHALATION RT-BID #1 inh 12/20/21 [Rx] lisinopriL [Zestril] 2.5 mg PO DAILY #90 tab 12/21/21 [Rx] Ipratropium-Albuterol Nebulize [Duoneb 0.5 mg-3 mg/3 ml Soln] 3 ml INHALATION RT-Q2H PRN each 12/22/21 [Rx] Ipratropium-Albuterol Nebulize [Duoneb 0.5 mg-3 mg/3 ml Soln] 3 ml INHALATION RT-QID #100 each 12/22/21 [Rx] Metoprolol Succinate (ER) [Toprol XL] 50 mg PO DAILY 30 Days #30 tab 12/22/21 [Rx] Ondansetron [Zofran] 4 mg PO Q8HR PRN #20 tab 12/22/21 [Rx] Aspirin 81 mg PO DAILY #30 tab 12/28/21 [Rx] Nitroglycerin Sl Tabs [Nitrostat] 0.4 mg SUBLINGUAL Q5M PRN #30 tab 12/28/21 [Rx] Spironolactone [Aldactone] 25 mg PO DAILY #30 tab 12/28/21 [Rx] Follow up Appointment(s)/Referral(s): Tory Gonzalez MD [Primary Care Provider] - 3 Days Discharge Disposition: HOME SELF-CARE
[2021-12-28] MEDS ORDERED: LACTULOSE 20 GM/30 ML CUP PO ONE (13:43)
[2021-12-28 16:30] LABS: Chol/HDL Ratio 3.74 Ratio; LDL Cholesterol,Calculated 149.5 mg/dL (0.0-131.0)
== END 2021-12-28 15:48 | disposition home or self-care (01) ==
LOC: EC 09:30 → 3SCARD 12:19
PROVIDERS: ADMIT Internal Medicine; ATTEND Internal Medicine
DX: J44.1 Chronic obstructive pulmonary disease with (acute) exacerbation (principal); R07.89 Other chest pain; J96.12 Chronic respiratory failure with hypercapnia; I10 Essential (primary) hypertension; K21.9 Gastro-esophageal reflux disease without esophagitis; I47.1 Supraventricular tachycardia; F32.A Depression, unspecified; F41.9 Anxiety disorder, unspecified; E78.5 Hyperlipidemia, unspecified; D51.0 Vitamin B12 deficiency anemia due to intrinsic factor deficiency; I25.10 Atherosclerotic heart disease of native coronary artery without angina pectoris; I42.9 Cardiomyopathy, unspecified; K80.20 Calculus of gallbladder without cholecystitis without obstruction; Z99.81 Dependence on supplemental oxygen; Z79.899 Other long term (current) drug therapy; Z79.51 Long term (current) use of inhaled steroids; Z96.642 Presence of left artificial hip joint; Z87.891 Personal history of nicotine dependence; Z82.3 Family history of stroke; Z82.49 Family history of ischemic heart disease and other diseases of the circulatory system
CPT/HCPCS: 99285; 36415; 94640 ×4; 94760; 93005; 93306; 97162; 97166; 85379; 83880; 80061; 80053; 80048; 83735; 84484; 85025; 85610; 85730; 81003; 71046; 71275; G0378 ×2; Q9967

== ENCOUNTER 2022-02-25 00:22 | Inpatient (IN) | payer MEDICARE, OTHER ==
[2022-02-25] MEDS ORDERED: ALBUTEROL NEBULIZED 2.5 MG/3 ML INHALATION STA (00:33)
[2022-02-25] MEDS ORDERED: LORazepam 2 MG/ML INJ IV STA (00:33)
[2022-02-25] MEDS ORDERED: IPRATROPIUM-ALBUTEROL 3 ML NEB INHALATION STA ×2 (00:33→04:21)
--- NOTE | 2022-02-25 00:37 | ED ---
SOB HPI - General Chief Complaint: Shortness of Breath Stated Complaint: KERI Time Seen by Provider: 02/25/22 00:25 Source: patient, EMS, RN notes reviewed Mode of arrival: EMS - History of Present Illness Initial Comments: This is a pleasant 77-year-old female who arrives via EMS. Patient has a history of asthma, recurrent chest pain, cardiac issues, COPD, hypertension, hyperlipidemia, acid reflux, pneumonia. Patient states that she's been battling symptoms of a common cold for the past few days. Patient states she starting getting shortness of breath at 6 PM. Patient also has a cough and what she is described as chest pain only with the cough. Cough is occasionally productive for scant sputum. No hemoptysis. No fever. Patient is a former cigarette smoker and is oxygen dependent at home on 2 L. No headache, no fever or chills, no changes in vision or hearing, no sore throat or difficulty with speech, no neck pain, , no abdominal pain, no nausea or vomiting, no changes in urination or bowel movements, no numbness or tingling, no extremity pain, no skin rashes or lesions. No diaphoresis or nausea Past medical, surgical, social, and family history reviewed. - Related Data Home Medications Medication Instructions Recorded Confirmed Simvastatin [Zocor] 40 mg PO HS 02/20/15 12/27/21 Montelukast Sodium [Singulair] 10 mg PO HS 03/01/16 12/27/21 Albuterol Sulfate [Ventolin HFA] 2 puff INHALATION RT-Q4H PRN 06/20/21 12/27/21 Ipratropium/Albuterol Sulfate 1 puff INHALATION RT-QID 06/20/21 12/27/21 [Combivent Respimat Inhaler] Omeprazole 20 mg PO DAILY 06/20/21 12/27/21 Sertraline [Zoloft] 200 mg PO DAILY 06/20/21 12/27/21 Acetaminophen [Tylenol Extra 1,000 mg PO Q6H PRN 11/08/21 12/27/21 Strength] Previous Rx's Medication Instructions Recorded Budesonide-Formot 160-4.5 Mcg 2 puff INHALATION RT-BID #1 inh 12/20/21 [Symbicort 160-4.5 Mcg Inhaler] lisinopriL [Zestril] 2.5 mg PO DAILY #90 tab 12/21/21 Ipratropium-Albuterol Nebulize 3 ml INHALATION RT-Q2H PRN each 12/22/21 [Duoneb 0.5 mg-3 mg/3 ml Soln] Ipratropium-Albuterol Nebulize 3 ml INHALATION RT-QID #100 each 12/22/21 [Duoneb 0.5 mg-3 mg/3 ml Soln] Metoprolol Succinate (ER) [Toprol 50 mg PO DAILY 30 Days #30 tab 12/22/21 XL] Ondansetron [Zofran] 4 mg PO Q8HR PRN #20 tab 12/22/21 ALPRAZolam [Xanax] 0.5 mg PO TID PRN #10 tab 12/28/21 Aspirin 81 mg PO DAILY #30 tab 12/28/21 Nitroglycerin Sl Tabs [Nitrostat] 0.4 mg SUBLINGUAL Q5M PRN #30 tab 12/28/21 Spironolactone [Aldactone] 25 mg PO DAILY #30 tab 12/28/21 Allergies Allergy/AdvReac Type Severity Reaction Status Date / Time No Known Allergies Allergy Verified 12/27/21 11:59 Review of Systems ROS Statement: Those systems with pertinent positive or pertinent negative responses have been documented in the HPI. ROS Other: All systems not noted in ROS Statement are negative. Past Medical History Past Medical History: Asthma, Chest Pain / Angina, COPD, GERD/Reflux, H yperlipidemia, Hypertension, Pneumonia Additional Past Medical History / Comment(s): oxygen [place] @2L continuous, gallstones, pernicious anemia History of Any Multi-Drug Resistant Organisms: None Reported Past Surgical History: Hernia Repair, Joint Replacement, Orthopedic Surgery, Tonsillectomy Additional Past Surgical History / Comment(s): left elbow surgery, abscess in stomach area, abdominial scar tissue, tamie oophorectomy, left knee surgery, left hip replacement Past Anesthesia/Blood Transfusion Reactions: No Reported Reaction Past Psychological History: Anxiety, Depression Smoking Status: Former smoker Past Alcohol Use History: None Reported Past Drug Use History: None Reported - Past Family History Mother Family Medical History: No Reported History Additional Family Medical History / Comment(s): MS Father Family Medical History: CVA/TIA, Myocardial Infarction ([place]) Additional Family Medical History / Comment(s): ETOH General Exam - General Exam Comments Initial Comments: Patient appears to be mildly ill but not toxic. Adequate peripheral perfusion. Moist mucous membranes. No mottling General appearance: alert, in no apparent distress Head exam: Present: atraumatic, normocephalic, normal inspection Eye exam: Present: normal appearance, PERRL, EOMI. Absent: scleral icterus, conjunctival injection, periorbital swelling ENT exam: Present: normal exam, normal oropharynx, mucous membranes moist, normal external ear exam. Absent: mucous membranes dry Neck exam: Present: normal inspection, full ROM. Absent: tenderness, m eningismus, lymphadenopathy Respiratory exam: Present: wheezes (Scant expiratory), accessory muscle use, decreased breath sounds, prolonged expiratory. Absent: normal lung sounds bilaterally, respiratory distress, rales, rhonchi, stridor, chest wall tenderness Cardiovascular Exam: Present: regular rate, normal rhythm, normal heart sounds. Absent: systolic murmur, diastolic murmur, rubs, gallop, clicks GI/Abdominal exam: Present: soft, normal bowel sounds. Absent: distended, tenderness, guarding, rebound, rigid Extremities exam: Present: normal inspection, full ROM, normal capillary refill. Absent: tenderness, pedal edema, joint swelling, calf tenderness Back exam: Present: normal inspection Neurological exam: Present: alert, oriented X3, CN II-XII intact Psychiatric exam: Present: normal affect, normal mood Skin exam: Present: warm, dry, intact, normal color. Absent: rash Course Vital Signs 02/25/22 02/25/22 02/25/22 00:29 01:32 02:16 Temperature 98 F Pulse Rate 103 H 99 91 Respiratory 20 16 Rate Blood Pressure 147/86 104/80 O2 Sat by Pulse 96 98 Oximetry 02/25/22 02/25/22 02/25/22 02:30 02:32 03:00 Temperature Pulse Rate 100 103 H 60 Respiratory 16 16 Rate Blood Pressure 102/88 90/60 O2 Sat by Pulse 96 96 Oximetry 02/25/22 04:00 Temperature Pulse Rate 91 Respiratory 16 Rate Blood Pressure 97/57 O2 Sat by Pulse 96 Oximetry - Reevaluation(s) Reevaluation #1: 02/25/22 02:14 Medical record is reviewed Symptoms are improved here in the emergency department Patient is informed of results and questions answered Patient in no distress Reevaluation #2: 02/25/22 04:21 Patient was reevaluated and still feeling short of breath. Reassessment of bilateral breath sounds reveal scant expiratory wheezing. Patient not acutely. Will order another DuoNeb treatment. She also hyponatremic. We'll start the patient on 75 mL per hour. Will hydrate cautiously due to the patient's previous cardiac issues. Case discussed in detail with the ED attending physician, Dr. Harden Medical Decision Making - Medical Decision Making Was pt. sent in by a medical professional or institution? @ -no Did you speak to anyone other than the patient for history? @ -EMS Did you review nursing and triage notes? @ -yes Were old charts reviewed? @ -Old records reviewed Differential Diagnosis? @ -Differential Dyspnea: Coronary syndrome, arrhythmia, tamponade, asthma, COPD, pulmonary embolism, pneumonia, pneumothorax, pulmonary effusion, anaphylaxis, diabetic ketoacidosis, flailed chest, pulmonary contusion, diaphragmatic rupture, anemia, neuromuscular, this is not meant to be an all-inclusive list. EKG interpreted by me (3pts min.)? @ -[yes] X-rays interpreted by me (1pt min.)? @ -[Yes] CT interpreted by me (1pt min.)? @ -[none] U/S interpreted by me (1pt. min.)? @ -[none] What testing was considered but not performed? (CT, X-rays, U/S, labs)? Why? @No What meds were considered but not given? Why? @ -I did consider Solu-Medrol. However she was given 125 mg of Solu-Medrol in the ambulance. Will add on IV Solu-Medrol every 8 hours on admission. Did you discuss the management of the patient with other professionals? @ -ED attending physician. Hospitalist from [facility] hospitalist group. Did you reconcile home meds? @ -Reviewed but not reconciled Was smoking cessation discussed for >3mins.? @ -[none] Was critical care preformed (if so, how long)? @ -[none] Were there social determinants of health that impacted care today? How? (Homelessness, low income, unemployed, alcoholism, drug addiction, transportation, low edu. Level, literacy, decrease access to med. care, fci, rehab)? @ -Non-apparent Was there de-escalation of care discussed even if they declined? (Discuss DNR or withdrawal of care, Hospice)? @ -No What co-morbidities impacted this encounter? (DM, HTN, Smoking, COPD, CAD, Cancer, CVA, Hep., AIDS, mental health diagnosis, sleep apnea, morbid obesity)? @ -[HTN,, COPD, ] Was patient admitted / discharged? @ -Patient was medical Hospital for COPD exacerbation, RSV infection, left lower lobe pneumonia, and hyponatremia. Patient was still having some shortness of breath with no tachypnea and reassessment. Patient had a repeat DuoNeb treatment. Patient received 3 treatments in total if you include the extra albuterol initially. Patient also received ceftriaxone and azithromycin here in the ER. Patient be hydrated carefully due to her age. We'll recheck the sodium in the morning. Undiagnosed new problem with uncertain prognosis? @ -Yes Drug Therapy requiring intensive monitoring for toxicity (Heparin, Nitro, Insulin, Cardizem)? @ -[none] Were any procedures done? @ -[none] Diagnosis/symptom? @ -Left lower lobe pneumonia, RSV, COPD exacerbation, hyponatremia Acute, or Chronic, or Acute on Chronic? @ -Acute, acute, acute on chronic exacerbation, acute respectively Uncomplicated (without systemic symptoms) or Complicated (systemic symptoms)? @ -Complicated Side effects of treatment? @ -[none] Exacerbation, Progression, or Severe Exacerbation] @ -Acute infectious process with exacerbation of COPD Poses a threat to life or bodily function? @ -Yes The case was discussed in detail with ED attending physician. Presentation, findings, treatment plan discussed in detail. [employer] Dr. Harden - Lab Data Result diagrams: 02/25/22 00:58 02/25/22 00:58 Lab Results 02/25/22 02/25/22 02/25/22 Range/Units 00:58 00:58 00:58 WBC 8.2 (3.8-10.6) k/uL RBC 4.66 (3.80-5.40) m/uL Hgb 13.0 (11.4-16.0) gm/dL Hct 39.6 (34.0-46.0) % MCV 85.1 (80.0-100.0) fL MCH 27.9 (25.0-35.0) pg MCHC 32.8 (31.0-37.0) g/dL RDW 15.0 (11.5-15.5) % Plt Count 259 (150-450) k/uL MPV 8.1 Neutrophils % 84 % Lymphocytes % 10 % Monocytes % 4 % Eosinophils % 1 % Basophils % 1 % Neutrophils # 6.9 (1.3-7.7) k/uL Lymphocytes # 0.8 L (1.0-4.8) k/uL Monocytes # 0.3 (0-1.0) k/uL Eosinophils # 0.0 (0-0.7) k/uL Basophils # 0.0 (0-0.2) k/uL PT 9.6 (9.0-12.0) sec INR 0.9 (<1.2) APTT 27.1 (22.0-30.0) sec Sodium 128 L (137-145) mmol/L Potassium 4.6 (3.5-5.1) mmol/L Chloride 96 L (98-107) mmol/L Carbon Dioxide 28 (22-30) mmol/L Anion Gap 4 mmol/L BUN 7 (7-17) mg/dL Creatinine 0.39 L (0.52-1.04) mg/dL Est GFR (CKD-EPI)AfAm >90 (>60 ml/min/1.73 sqM) Est GFR (CKD-EPI)NonAf >90 (>60 ml/min/1.73 sqM) Glucose 87 (74-99) mg/dL Plasma Lactic Acid Jarett (0.7-2.0) mmol/L Calcium 8.7 (8.4-10.2) mg/dL Magnesium 1.6 (1.6-2.3) mg/dL Total Bilirubin 0.4 (0.2-1.3) mg/dL AST 29 (14-36) U/L ALT 19 (4-34) U/L Alkaline Phosphatase 56 (38-126) U/L Troponin I (0.000-0.034) ng/mL NT-Pro-B Natriuret Pep pg/mL Total Protein 6.2 L (6.3-8.2) g/dL Albumin 3.8 (3.5-5.0) g/dL Urine Color Urine Appearance (Clear) Urine pH (5.0-8.0) Ur Specific [place] (1.001-1.035) Urine Protein (Negative) Urine Glucose (UA) (Negative) Urine Ketones (Negative) Urine Blood (Negative) Urine Nitrite (Negative) Urine Bilirubin (Negative) Urine Urobilinogen (<2.0) mg/dL Ur Leukocyte Esterase (Negative) Urine RBC (0-5) /hpf Urine WBC (0-5) /hpf Ur Squamous Epith Cells (0-4) /hpf Urine Mucus (None) /hpf Influenza Type A (PCR) (Not Detectd) Influenza Type B (PCR) (Not Detectd) RSV (PCR) (Not Detectd) SARS-CoV-2 (PCR) (Not Detectd) 02/25/22 02/25/22 02/25/22 Range/Units 00:58 00:58 00:58 WBC (3.8-10.6) k/uL RBC (3.80-5.40) m/uL Hgb (11.4-16.0) gm/dL Hct (34.0-46.0) % MCV (80.0-100.0) fL MCH (25.0-35.0) pg MCHC (31.0-37.0) g/dL RDW (11.5-15.5) % Plt Count (150-450) k/uL MPV Neutrophils % % Lymphocytes % % Monocytes % % Eosinophils % % Basophils % % Neutrophils # (1.3-7.7) k/uL Lymphocytes # (1.0-4.8) k/uL Monocytes # (0-1.0) k/uL Eosinophils # (0-0.7) k/uL Basophils # (0-0.2) k/uL PT (9.0-12.0) sec INR (<1.2) APTT (22.0-30.0) sec Sodium (137-145) mmol/L Potassium (3.5-5.1) mmol/L Chloride (98-107) mmol/L Carbon Dioxide (22-30) mmol/L Anion Gap mmol/L BUN (7-17) mg/dL Creatinine (0.52-1.04) mg/dL Est GFR (CKD-EPI)AfAm (>60 ml/min/1.73 sqM) Est GFR (CKD-EPI)NonAf (>60 ml/min/1.73 sqM) Glucose (74-99) mg/dL Plasma Lactic Acid Jarett 1.0 (0.7-2.0) mmol/L Calcium (8.4-10.2) mg/dL Magnesium (1.6-2.3) mg/dL Total Bilirubin (0.2-1.3) mg/dL AST (14-36) U/L ALT (4-34) U/L Alkaline Phosphatase (38-126) U/L Troponin I 0.029 (0.000-0.034) ng/mL NT-Pro-B Natriuret Pep 745 pg/mL Total Protein (6.3-8.2) g/dL Albumin (3.5-5.0) g/dL Urine Color Urine Appearance (Clear) Urine pH (5.0-8.0) Ur Specific [place] (1.001-1.035) Urine Protein (Negative) Urine Glucose (UA) (Negative) Urine Ketones (Negative) Urine Blood (Negative) Urine Nitrite (Negative) Urine Bilirubin (Negative) Urine Urobilinogen (<2.0) mg/dL Ur Leukocyte Esterase (Negative) Urine RBC (0-5) /hpf Urine WBC (0-5) /hpf Ur Squamous Epith Cells (0-4) /hpf Urine Mucus (None) /hpf Influenza Type A (PCR) (Not Detectd) Influenza Type B (PCR) (Not Detectd) RSV (PCR) (Not Detectd) SARS-CoV-2 (PCR) (Not Detectd) 02/25/22 02/25/22 Range/Units 00:58 01:36 WBC (3.8-10.6) k/uL RBC (3.80-5.40) m/uL Hgb (11.4-16.0) gm/dL Hct (34.0-46.0) % MCV (80.0-100.0) fL MCH (25.0-35.0) pg MCHC (31.0-37.0) g/dL RDW (11.5-15.5) % Plt Count (150-450) k/uL MPV Neutrophils % % Lymphocytes % % Monocytes % % Eosinophils % % Basophils % % Neutrophils # (1.3-7.7) k/uL Lymphocytes # (1.0-4.8) k/uL Monocytes # (0-1.0) k/uL Eosinophils # (0-0.7) k/uL Basophils # (0-0.2) k/uL PT (9.0-12.0) sec INR (<1.2) APTT (22.0-30.0) sec Sodium (137-145) mmol/L Potassium (3.5-5.1) mmol/L Chloride (98-107) mmol/L Carbon Dioxide (22-30) mmol/L Anion Gap mmol/L BUN (7-17) mg/dL Creatinine (0.52-1.04) mg/dL Est GFR (CKD-EPI)AfAm (>60 ml/min/1.73 sqM) Est GFR (CKD-EPI)NonAf (>60 ml/min/1.73 sqM) Glucose (74-99) mg/dL Plasma Lactic Acid Jarett (0.7-2.0) mmol/L Calcium (8.4-10.2) mg/dL Magnesium (1.6-2.3) mg/dL Total Bilirubin (0.2-1.3) mg/dL AST (14-36) U/L ALT (4-34) U/L Alkaline Phosphatase (38-126) U/L Troponin I (0.000-0.034) ng/mL NT-Pro-B Natriuret Pep pg/mL Total Protein (6.3-8.2) g/dL Albumin (3.5-5.0) g/dL Urine Color Light Yellow Urine Appearance Clear (Clear) Urine pH 6.5 (5.0-8.0) Ur Specific [place] 1.009 (1.001-1.035) Urine Protein Negative (Negative) Urine Glucose (UA) Negative (Negative) Urine Ketones 1+ H (Negative) Urine Blood Negative (Negative) Urine Nitrite Negative (Negative) Urine Bilirubin Negative (Negative) Urine Urobilinogen <2.0 (<2.0) mg/dL Ur Leukocyte Esterase Small H (Negative) Urine RBC 3 (0-5) /hpf Urine WBC 5 (0-5) /hpf Ur Squamous Epith Cells <1 (0-4) /hpf Urine Mucus Rare H (None) /hpf Influenza Type A (PCR) Not Detected (Not Detectd) Influenza Type B (PCR) Not Detected (Not Detectd) RSV (PCR) Detected A (Not Detectd) SARS-CoV-2 (PCR) Not Detected (Not Detectd) 02/25/22 01:50 EKG interpreted by me at 1:15 AM and reviewed by the ED attending physician reveals normal sinus rhythm with a rate of 98. Normal intervals. Normal axis. No acute ST or T-wave changes. Some baseline artifact. Normal QRS morphology. When compared to the previous study from 12/28/2021 patient does have some T- wave changes on that EKG she had T-wave inversions. These have normalized - Radiology Data Radiology results: report reviewed, image reviewed Two-view chest x-ray interpreted independently by me shows evidence of left lower lobe infiltrate. This is corroborated by the radiology report. No evidence of pneumothorax. No cardiomegaly. No effusion. No osseous lesion. Disposition Clinical Impression: Left lower lobe pneumonia, RSV infection, COPD with exacerbation, Hyponatremia Disposition: ADMITTED IP TO THIS HOSP Condition: Fair Is patient prescribed a controlled substance at d/c from ED?: No Referrals: Tory Gonzalez MD [Primary Care Provider] - 1-2 days Time of Disposition: 04:23 Decision to Admit Reason: Admit from EC Decision Time: 04:23
[2022-02-25 01:20] LABS: Basophils % (A) 1 %; Eosinophils % (A) 1 %; HCT 39.6 % (34.0-46.0); Lymphocytes # (A) 0.8 k/uL (1.0-4.8); Lymphocytes % (A) 10 %; MCH 27.9 pg (25.0-35.0); MCHC 32.8 g/dL (31.0-37.0); MCV 85.1 fL (80.0-100.0); Mean Platelet Volume 8.1; Monocytes # (A) 0.3 k/uL (0-1.0); Monocytes % (A) 4 %; Neutrophils # (A) 6.9 k/uL (1.3-7.7); Neutrophils % (A) 84 %; Platelet Count 259 k/uL (150-450); RBC 4.66 m/uL (3.80-5.40); WBC 8.2 k/uL (3.8-10.6)
--- NOTE | 2022-02-25 01:25 | XR ---
EXAMINATION TYPE: XR chest 1V portable DATE OF EXAM: 02/25/2022 COMPARISON: 12/27/2021 HISTORY: Dyspnea TECHNIQUE: Single view FINDINGS: There is no heart failure. Costophrenic angles are clear. There are no hilar masses. There is some minimal infiltrate at the lateral left lung base. IMPRESSION: There is a new minimal 2 cm infiltrate lateral left lung base compared to old exam is pro bably COPD. Normal heart.
[2022-02-25 01:36] LABS: ALT 19 U/L (4-34); AST 29 U/L (14-36); African American GFR (CKD) >90 (>60 ml/min/1.73 sqM); Albumin 3.8 g/dL (3.5-5.0); Alkaline Phosphatase 56 U/L (38-126); Anion Gap 4 mmol/L; Blood Urea Nitrogen 7 mg/dL (7-17); Calcium 8.7 mg/dL (8.4-10.2); Carbon Dioxide 28 mmol/L (22-30); Chloride 96 mmol/L (98-107); Glucose 87 mg/dL (74-99); Magnesium 1.6 mg/dL (1.6-2.3); Non-African American GFR(CKD) >90 (>60 ml/min/1.73 sqM); Potassium 4.6 mmol/L (3.5-5.1); Sodium 128 mmol/L (137-145); Total Bilirubin 0.4 mg/dL (0.2-1.3); Total Protein 6.2 g/dL (6.3-8.2)
[2022-02-25 01:47] LABS: INR 0.9 (<1.2); Partial Thromboplastin Time 27.1 sec (22.0-30.0); Prothrombin Time 9.6 sec (9.0-12.0)
[2022-02-25] MEDS ORDERED: AZITHROMYCIN 500 MG in SODIUM CHLORIDE 0.9% 250 ML IVPB STA (02:15)
[2022-02-25 02:20] LABS: Appearance,Urine Clear (Clear); Bilirubin,Urine Negative (Negative); Blood,Urine Negative (Negative); Color,Urine Light Yellow; Glucose,Urine (UA) Negative (Negative); Ketones,Urine 1+ (Negative); Leukocyte Esterase,Urine Small (Negative); Mucus,Urine Rare /hpf; Nitrite,Urine Negative (Negative); PH, Urine 6.5 (5.0-8.0); Protein,Urine Negative (Negative); RBC,Urine 3 /hpf (0-5); Specific Gravity,Urine 1.009 (1.001-1.035); Squamous Epithelial Cell,Urine <1 /hpf (0-4); Urobilinogen,Urine <2.0 mg/dL (<2.0); WBC,Urine 5 /hpf (0-5)
[2022-02-25] MEDS ORDERED: SODIUM CHLORIDE 0.9% 500 ML 500 ML IV ONE (04:21)
[2022-02-25] MEDS ORDERED: SODIUM CHLORIDE 0.9% 1,000 ML IV SCH (04:30)
[2022-02-25] MEDS ORDERED: NALOXONE 0.4 MG/ML 1 ML VIAL IVP PRN (04:34)
[2022-02-25] MEDS ORDERED: IPRATROPIUM-ALBUTEROL 3 ML NEB INHALATION PRN (04:39)
[2022-02-25] MEDS: methylPREDNISolone SOD SUCCI 125 MG/2 ML VIAL IV SCH ×2 (07:07→11:23)
[2022-02-25] MEDS: HEPARIN SODIUM,PORCINE/PF 5,000 UNIT/0.5 ML SYRINGE SQ SCH ×2 (08:11→20:04)
[2022-02-25 10:09] LABS: African American GFR (CKD) >90 (>60 ml/min/1.73 sqM); Anion Gap 7 mmol/L; Blood Urea Nitrogen 10 mg/dL (7-17); Calcium 8.5 mg/dL (8.4-10.2); Carbon Dioxide 23 mmol/L (22-30); Chloride 98 mmol/L (98-107); Glucose 116 mg/dL (74-99); Non-African American GFR(CKD) >90 (>60 ml/min/1.73 sqM); Potassium 4.7 mmol/L (3.5-5.1); Sodium 128 mmol/L (137-145)
[2022-02-25 10:20] LABS: C Reactive Protein 3.1 mg/dL (<1.0)
[2022-02-25] MEDS: ACETAMINOPHEN TAB 325 MG TAB PO PRN ×2 (11:22→20:04)
[2022-02-25] MEDS: ALPRAZolam 0.5 MG TAB PO PRN (12:06)
[2022-02-25] MEDS: IPRATROPIUM-ALBUTEROL 3 ML NEB INHALATION PRN (12:27)
[2022-02-25] MEDS ORDERED: NITROGLYCERIN SL TABS 0.4 MG TAB SUBLINGUAL PRN (12:35)
[2022-02-25] MEDS: METOPROLOL SUCCINATE (ER) 50 MG TAB.ER.24H PO SCH (12:53)
[2022-02-25] MEDS ORDERED: METOPROLOL SUCCINATE (ER) 25 MG TAB.ER.24H PO SCH (13:00)
--- NOTE | 2022-02-25 13:13 | XR ---
EXAMINATION TYPE: XR chest 1V portable DATE OF EXAM: 02/25/2022 12:57 PM COMPARISON: Chest radiographs from 02/25/2022 TECHNIQUE: XR chest 1V portable Portable AP radiograph of the chest. CLINICAL INDICATION:Female, 77 years old with history of shortness of breath; FINDINGS: Lungs/Pleura: Left lung base airspace opacities are unchanged. There is no evidence of pleural effusi on, or pneumothorax. Pulmonary vascularity: Unremarkable. Heart/mediastinum: Cardiomediastinal silhouette is unremarkable. Musculoskeletal: No acute osseous pathology. IMPRESSION: No significant change in left lung base possible infiltrate.
[2022-02-25] MEDS ORDERED: FUROSEMIDE 10 MG/ML 2 ML VIAL IV STA (13:27)
[2022-02-25] MEDS: AZITHROMYCIN 500 MG TAB PO SCH (14:26)
[2022-02-25] MEDS: PANTOPRAZOLE 40 MG/10 ML VIAL IVP SCH (14:26)
[2022-02-25] MEDS: IPRATROPIUM-ALBUTEROL 3 ML NEB INHALATION SCH ×2 (15:50→20:07)
[2022-02-25] MEDS ORDERED: NON FORMULARY DRUG (Ipratropium/Albuterol Sulfate [Combivent Respimat Inhaler] 1 INHALER E INHALATION SCH (16:00)
[2022-02-25] MEDS ORDERED: ALPRAZolam 0.5 MG TAB PO STA (17:55)
--- NOTE | 2022-02-25 17:58 | P.HPIM ---
History of Present Illness H&P Date: 02/25/22 This is a 77 year old female with history of recurrent chest pain, asthma, COPD, GERD, hypertension, hyperlipidemia, anxiety/depression. Patient is a former smoker and wears 2L of oxygen chronically. Presents to the emergency center by EMS with complaints of progressive shortness of breath, as well as cough with pleuritic chest pain. Denies fever, denies chills. Reports an episode of diarrhea at home with decreased appetite, reports nausea. Denies emesis. She is admitted to the hospital and found to be positive for RSV by PCR testing. Currently receiving IV fluids at 75 mls/hour, IV solumedrol and has been started on empiric antibiotic coverage with azithromycin PO. Patient had chest xray on admission showing new minimal 2cm infiltrate left lateral lung base likely COPD. No heart failure. Currently she is afebrile, heart rate is in the 90s normal sinus rhythm, blood pressure on the lower side at 100/67, which will recommend to hold lisinopril. Sodium was found to be 128 on admission and remains at 128 after hydration. Recent echocardiogram from Dec 2021 shows an EF of 35 to 40%. Will recommend to stop IV fluids at this time. Patient reports drinking plenty of water at home but has had poor oral intake. She is monitored in observation further recommendations by pulmonary services. REVIEW OF SYSTEMS: CONSTITUTIONAL: No fever, no malaise, no fatigue. HEENT: No recent visual problems or hearing problems. Denied any sore throat. CARDIOVASCULAR: No chest pain, orthopnea, PND, no palpitations, no syncope. PULMONARY: Reports shortness of breath, reports cough, no hemoptysis GASTROINTESTINAL: No diarrhea, no nausea, no vomiting, no abdominal pain. NEUROLOGICAL: No headaches, no weakness, no numbness. HEMATOLOGICAL: Denies any bleeding or petechiae. GENITOURINARY: Denies any burning micturition, frequency, or urgency. MUSCULOSKELETAL/RHEUMATOLOGICAL: Denies any joint pain, swelling, or any muscle pain. ENDOCRINE: Denies any polyuria or polydipsia. The rest of the 14-point review of systems is negative. PHYSICAL EXAMINATION: GENERAL: The patient is alert and oriented x3, not in any acute distress. Well developed, well nourished. Currently on 4L nasal cannula HEENT: Pupils are round and equally reacting to light. EOMI. No scleral icterus. No conjunctival pallor. Normocephalic, atraumatic. No pharyngeal erythema. No thyromegaly. CARDIOVASCULAR: S1 and S2 present. No murmurs, rubs, or gallops. PULMONARY: Lungs are tight and diminished. ABDOMEN: Soft, nontender, nondistended, normoactive bowel sounds. No palpable organomegaly. MUSCULOSKELETAL: No joint swelling or deformity. EXTREMITIES: No cyanosis, clubbing, or pedal edema. NEUROLOGICAL: Gross neurological examination did not reveal any focal deficits. SKIN: No rashes. Assessment and plan Assessment Acute on chronic hypoxemic respiratory failure secondary to acute RSV infection and tracheobronchitis, currently on 4l nasal cannula, wears 2L chronically Mild acute on chronic heart failure, systolic dysfunction History asthma/COPD with acute exacerbation secondary to above Hyponatremia initially hypovolemic with BNP increasing and will stop IV fluids and give a dose of IV lasix Hypertension currently low 100s systolic lisinopril will be held at this time Tachycardia likely from missing toprol dose which is resumed Hyperlipidemia, history History of SVT Gastroesophageal reflux disease Anxiety/Depression Former smoker GI Prophylaxis DVT Prophylaxis Plan IV fluids discontinued, IV lasix x 1 given Continue supplemental oxygen, Duonebs, inhalers Continue IV steroids On empiric antibiotics with azithromycin Procalcitonin level pending Supportive care Repeat labs in AM The impression and plan of care has been dictated by Kelly Forrest Nurse Practitioner as directed. Dr. Mariely MD I have performed a history and physical examination and medical decision making of this patient, discussed the same with the dictator, and agree with the dictators assessment and plan as written, documented as a scribe. Based on total visit time, I have performed more than 50% of this visit. Past Medical History Past Medical History: Asthma, Chest Pain / Angina, COPD, GERD/Reflux, Hyperlipidemia, Hypertension, Pneumonia Additional Past Medical History / Comment(s): oxygen NC @2L continuous, gallstones, pernicious anemia History of Any Multi-Drug Resistant Organisms: None Reported Past Surgical History: Hernia Repair, Joint Replacement, Orthopedic Surgery, Tonsillectomy Additional Past Surgical History / Comment(s): left elbow surgery, abscess in stomach area, abdominial scar tissue, tamie oophorectomy, left knee surgery, left hip replacement Past Anesthesia/Blood Transfusion Reactions: No Reported Reaction Past Psychological History: Anxiety, Depression Smoking Status: Former smoker Past Alcohol Use History: None Reported Additional Past Alcohol Use History / Comment(s): quit smoking 2001, smoked since age 18, 2 PPD Past Drug Use History: None Reported - Past Family History Mother Family Medical History: No Reported History Additional Family Medical History / Comment(s): MS Father Family Medical History: CVA/TIA, Myocardial Infarction ([place]) Additional Family Medical History / Comment(s): ETOH Medications and Allergies Home Medications Medication Instructions Recorded Confirmed Type Simvastatin [Zocor] 40 mg PO HS 02/20/15 02/25/22 History Montelukast Sodium [Singulair] 10 mg PO HS 03/01/16 02/25/22 History Albuterol Sulfate [Ventolin HFA] 2 puff INHALATION RT-Q4H PRN 06/20/21 02/25/22 History Ipratropium/Albuterol Sulfate 1 puff INHALATION RT-QID 06/20/21 02/25/22 History [Combivent Respimat Inhaler] Omeprazole 20 mg PO DAILY 06/20/21 02/25/22 History Sertraline [Zoloft] 200 mg PO BID 06/20/21 02/25/22 History Acetaminophen [Tylenol Extra 1,000 mg PO Q6H PRN 11/08/21 02/25/22 History Strength] Budesonide-Formot 160-4.5 Mcg 2 puff INHALATION RT-BID #1 inh 12/20/21 02/25/22 Rx [Symbicort 160-4.5 Mcg Inhaler] lisinopriL [Zestril] 2.5 mg PO DAILY #90 tab 12/21/21 02/25/22 Rx Ipratropium-Albuterol Nebulize 3 ml INHALATION RT-Q2H PRN each 12/22/21 02/25/22 Rx [Duoneb 0.5 mg-3 mg/3 ml Soln] Ipratropium-Albuterol Nebulize 3 ml INHALATION RT-QID #100 each 12/22/21 02/25/22 Rx [Duoneb 0.5 mg-3 mg/3 ml Soln] Ondansetron [Zofran] 4 mg PO Q8HR PRN #20 tab 12/22/21 02/25/22 Rx ALPRAZolam [Xanax] 0.5 mg PO TID PRN #10 tab 12/28/21 02/25/22 Rx Nitroglycerin Sl Tabs [Nitrostat] 0.4 mg SUBLINGUAL Q5M PRN #30 tab 12/28/21 02/25/22 Rx Spironolactone [Aldactone] 25 mg PO DAILY #30 tab 12/28/21 02/25/22 Rx Metoprolol Succinate (ER) [Toprol 50 mg PO DAILY 02/25/22 02/25/22 History XL] Allergies Allergy/AdvReac Type Severity Reaction Status Date / Time No Known Allergies Allergy Verified 02/25/22 11:09 Physical Exam Vitals: Vital Signs Temp Pulse Pulse Resp BP BP Pulse Ox 02/25/22 07:00 98.2 F 89 18 100/67 94 L 02/25/22 05:34 90 02/25/22 05:23 91 02/25/22 05:00 91 16 100/74 98 02/25/22 04:00 91 16 97/57 96 02/25/22 03:00 60 16 90/60 96 02/25/22 02:32 103 H 16 102/88 96 02/25/22 02:30 100 02/25/22 02:16 91 02/25/22 01:32 99 16 104/80 98 02/25/22 00:29 98 F 103 H 20 147/86 96 Intake and Output 02/24/22 02/25/22 02/25/22 22:59 06:59 14:59 Other: # Voids 0 1 Weight 61.235 kg Results CBC & Chem 7: 02/25/22 00:58 02/25/22 09:11 Labs: Abnormal Lab Results - Last 24 Hours (Table) 02/25/22 02/25/22 02/25/22 Range/Units 00:58 00:58 00:58 Lymphocytes # 0.8 L (1.0-4.8) k/uL Sodium 128 L (137-145) mmol/L Chloride 96 L (98-107) mmol/L Creatinine 0.39 L (0.52-1.04) mg/dL Total Protein 6.2 L (6.3-8.2) g/dL Urine Ketones (Negative) Ur Leukocyte Esterase (Negative) Urine Mucus (None) /hpf RSV (PCR) Detected A (Not Detectd) 02/25/22 Range/Units 01:36 Lymphocytes # (1.0-4.8) k/uL Sodium (137-145) mmol/L Chloride (98-107) mmol/L Creatinine (0.52-1.04) mg/dL Total Protein (6.3-8.2) g/dL Urine Ketones 1+ H (Negative) Ur Leukocyte Esterase Small H (Negative) Urine Mucus Rare H (None) /hpf RSV (PCR) (Not Detectd) Assessment and Plan Time with Patient: Greater than 30
[2022-02-25] MEDS: ATORVASTATIN 20 MG TAB PO SCH (20:03)
[2022-02-25] MEDS: SERTRALINE 100 MG TAB PO SCH (20:04)
[2022-02-25] MEDS: methylPREDNISolone SOD SUCCI 40 MG/ML 1 ML VIAL IV SCH (20:04)
[2022-02-25] MEDS: MONTELUKAST 10 MG TAB PO SCH (20:04)
[2022-02-25] MEDS: SYMBICORT 160-4.5 MCG INHALER INHALATION SCH (20:07)
[2022-02-26] MEDS ORDERED: VANCOMYCIN IV PER PHARMACY 1 EACH MISC MISCELLANE PRN (05:11)
[2022-02-26] MEDS ORDERED: VANCOMYCIN 1,250 MG in SODIUM CHLORIDE 0.9% 250 ML IVPB ONE (05:30)
[2022-02-26] MEDS: ONDANSETRON 4 MG/2 ML VIAL IVP PRN (06:01)
[2022-02-26 06:36] LABS: African American GFR (CKD) >90 (>60 ml/min/1.73 sqM); Anion Gap 4 mmol/L; Blood Urea Nitrogen 17 mg/dL (7-17); Calcium 8.7 mg/dL (8.4-10.2); Carbon Dioxide 30 mmol/L (22-30); Chloride 95 mmol/L (98-107); Glucose 115 mg/dL (74-99); Magnesium 1.9 mg/dL (1.6-2.3); Non-African American GFR(CKD) >90 (>60 ml/min/1.73 sqM); Potassium 4.5 mmol/L (3.5-5.1); Sodium 129 mmol/L (137-145)
[2022-02-26] MEDS: ALPRAZolam 0.5 MG TAB PO PRN ×3 (07:48→20:24)
[2022-02-26] MEDS: methylPREDNISolone SOD SUCCI 40 MG/ML 1 ML VIAL IV SCH ×2 (08:06→20:25)
[2022-02-26] MEDS: PANTOPRAZOLE 40 MG/10 ML VIAL IVP SCH (08:06)
[2022-02-26] MEDS: SPIRONOLACTONE 25 MG TAB PO SCH (08:07)
[2022-02-26] MEDS: HEPARIN SODIUM,PORCINE/PF 5,000 UNIT/0.5 ML SYRINGE SQ SCH ×2 (08:07→20:25)
[2022-02-26] MEDS: METOPROLOL SUCCINATE (ER) 50 MG TAB.ER.24H PO SCH (08:07)
[2022-02-26] MEDS: AZITHROMYCIN 500 MG TAB PO SCH (08:07)
[2022-02-26] MEDS: SERTRALINE 100 MG TAB PO SCH ×2 (08:07→20:25)
[2022-02-26] MEDS: IPRATROPIUM-ALBUTEROL 3 ML NEB INHALATION SCH ×4 (08:25→20:01)
[2022-02-26] MEDS: SYMBICORT 160-4.5 MCG INHALER INHALATION SCH ×2 (08:25→20:01)
[2022-02-26] MEDS ORDERED: FUROSEMIDE 10 MG/ML 2 ML VIAL IV STA (09:37)
--- NOTE | 2022-02-26 15:12 | P.PN ---
Subjective Progress Note Date: 02/26/22 This is a 77 year old female with history of recurrent chest pain, asthma, COPD, GERD, hypertension, hyperlipidemia, anxiety/depression. Patient is a former smoker and wears 2L of oxygen chronically. Presents to the emergency center by EMS with complaints of progressive shortness of breath, as well as cough with pleuritic chest pain. Denies fever, denies chills. Reports an episode of diarrhea at home with decreased appetite, reports nausea. Denies emesis. She is admitted to the hospital and found to be positive for RSV by PCR testing. Currently receiving IV fluids at 75 mls/hour, IV solumedrol and has been started on empiric antibiotic coverage with azithromycin PO. Patient had chest xray on admission showing new minimal 2cm infiltrate left lateral lung base likely COPD. No heart failure. Currently she is afebrile, heart rate is in the 90s normal sinus rhythm, blood pressure on the lower side at 100/67, which will recommend to hold lisinopril. Sodium was found to be 128 on admission and remains at 128 after hydration. Recent echocardiogram from Dec 2021 shows an EF of 35 to 40%. Will recommend to stop IV fluids at this time. Patient reports drinking plenty of water at home but has had poor oral intake. She is monitored in observation further recommendations by pulmonary services. 02/26/2022 Patient is evaluated today resting in bed. Reports decreased appetite, sweaty/chills overnight. Has some nausea, denies emesis or diarrhea today. Continues to feel short of breath with weak cough unable to expectorate much. Blood culture preliminary showing gram positive cocci and patient was started on IV vancomycin with infectious disease consultation. Sodium up to 129, received a dose of IV lasix yesterday. proBNP 1470. Procalcitonin level negative at 0.07. Patient will receive another dose of lasix today IV with intake and output monitoring. Check bladder scan. Review of Systems Constitutional: Reports fatigue, chills/sweats Cardio vascular: denied any chest pain, palpitations Gastrointestinal: denied any vomiting, diarrhea. Has some nausea. Pulmonary: Reports shortness of breath and weak cough Neurologic denied any new focal deficits All inpatient medications were reviewed and appropriate changes in these medications as dictated in the interval history and assessment and plan. PHYSICAL EXAMINATION: GENERAL: The patient is alert and oriented x3, not in any acute distress. Well developed, well nourished. Currently on 3 to 4 L nasal cannula HEENT: Pupils are round and equally reacting to light. EOMI. No scleral icterus. No conjunctival pallor. Normocephalic, atraumatic. No pharyngeal erythema. No thyromegaly. CARDIOVASCULAR: S1 and S2 present. No murmurs, rubs, or gallops. PULMONARY: Lungs are tight and diminished. some faint basilar crackles noted. ABDOMEN: Soft, nontender, nondistended, normoactive bowel sounds. No palpable organomegaly. MUSCULOSKELETAL: No joint swelling or deformity. EXTREMITIES: No cyanosis, clubbing, or pedal edema. NEUROLOGICAL: Gross neurological examination did not reveal any focal deficits. SKIN: No rashes. Assessment and plan Assessment Acute on chronic hypoxemic respiratory failure secondary to acute RSV infection with left lung base infiltrate and tracheobronchitis, currently on 4l nasal cannula, wears 2L chronically Gram positive bacteremia pending repeat culture Mild acute on chronic heart failure, systolic dysfunction History asthma/COPD with acute exacerbation secondary to above Hyponatremia initially hypovolemic with BNP increasing and will stop IV fluids and give a dose of IV lasix Hypertension currently low 100s systolic lisinopril will be held at this time Tachycardia likely from missing toprol dose which is resumed Hyperlipidemia, history History of SVT Gastroesophageal reflux disease Anxiety/Depression Former smoker GI Prophylaxis DVT Prophylaxis Plan IV lasix x 1 today, Intake and Output monitoring Continue supplemental oxygen, Duonebs, inhalers Continue IV steroids IV vancomycin and ID consultation Repeat blood culture pending Supportive care Repeat labs in AM The impression and plan of care has been dictated by Kelly Forrest, Nurse Practitioner as directed. Dr. Mariely MD I have performed a history and physical examination and medical decision making of this patient, discussed the same with the dictator, and agree with the dictators assessment and plan as written, documented as a scribe. Based on total visit time, I have performed more than 50% of this visit. Objective - Vital Signs Vital signs: Vital Signs Temp 97.5 F L 02/26/22 07:00 Pulse 103 H 02/26/22 08:39 Resp 18 02/26/22 07:49 BP 106/73 02/26/22 07:00 Pulse Ox 97 02/26/22 08:29 FiO2 Intake & Output 02/25/22 02/26/22 02/26/22 18:59 06:59 18:59 Intake Total 240 Output Total 1 Balance 239 Intake: Oral 240 Output: Urine 1 Other: Voiding Method Toilet # Voids 1 2 1 - Labs CBC & Chem 7: 02/25/22 00:58 02/26/22 05:34 Labs: Abnormal Lab Results - Last 24 Hours (Table) 02/25/22 02/26/22 Range/Units 09:11 05:34 Sodium 128 L 129 L (137-145) mmol/L Chloride 95 L (98-107) mmol/L Creatinine 0.42 L 0.41 L (0.52-1.04) mg/dL Glucose 116 H 115 H (74-99) mg/dL C-Reactive Protein 3.1 H (<1.0) mg/dL Microbiology - Last 24 Hours (Table) 02/25/22 03:00 Blood Culture - Preliminary Blood No Growth after 24 hours 02/25/22 03:15 Blood Culture Gram Stain - Preliminary Blood 02/25/22 03:15 Blood Culture - Final Blood Assessment and Plan Time with Patient: Less than 30
[2022-02-26] MEDS: ACETAMINOPHEN TAB 325 MG TAB PO PRN (16:39)
[2022-02-26] MEDS: VANCOMYCIN 1,250 MG in SODIUM CHLORIDE 0.9% 250 ML IVPB SCH (17:44)
[2022-02-26] MEDS: METOPROLOL TARTRATE 25 MG TAB PO SCH (20:25)
[2022-02-26] MEDS: MONTELUKAST 10 MG TAB PO SCH (20:25)
[2022-02-26] MEDS: ATORVASTATIN 20 MG TAB PO SCH (20:25)
[2022-02-27] MEDS: VANCOMYCIN 1,250 MG in SODIUM CHLORIDE 0.9% 250 ML IVPB SCH (06:02)
[2022-02-27] MEDS: IPRATROPIUM-ALBUTEROL 3 ML NEB INHALATION SCH ×4 (08:05→21:24)
[2022-02-27] MEDS: SYMBICORT 160-4.5 MCG INHALER INHALATION SCH ×2 (08:05→21:25)
[2022-02-27] MEDS ORDERED: METOPROLOL SUCCINATE (ER) 25 MG TAB.ER.24H PO SCH (09:00)
[2022-02-27 09:01] LABS: Basophils # (A) 0.01 X 10*3/uL (0.00-0.10); Basophils % (A) 0.2 %; Eosinophils # (A) 0 X 10*3/uL (0.04-0.35); Eosinophils % (A) 0 %; HCT 36.7 % (37.2-46.3); HGB 11.4 g/dL (12.0-15.0); Immature Grans, Automated 0.2 %; Lymphocytes # (A) 0.66 X 10*3/uL (0.90-5.00); Lymphocytes % (A) 10.7 %; MCH 26.3 pg (27.0-32.0); MCHC 31.1 g/dL (32.0-37.0); MCV 84.8 fL (80.0-97.0); Mean Platelet Volume 10.9 fL (9.5-12.2); Monocytes # (A) 0.39 X 10*3/uL (0.20-1.00); Monocytes % (A) 6.3 %; NRBC Per 100 WBC 0 /100 WBCS (0.0-0.0); Neutrophils # (A) 5.08 X 10*3/uL (1.80-7.70); Neutrophils % (A) 82.6 %; Platelet Count 250 X 10*3/uL (140-440); RBC 4.33 X 10*6/uL (4.10-5.20); RDW 15.3 % (11.5-14.5); WBC 6.15 X 10*3/uL (4.50-10.00)
[2022-02-27] MEDS: ALPRAZolam 0.5 MG TAB PO PRN ×3 (09:06→21:07)
[2022-02-27] MEDS: HEPARIN SODIUM,PORCINE/PF 5,000 UNIT/0.5 ML SYRINGE SQ SCH ×2 (09:09→21:08)
[2022-02-27] MEDS: ONDANSETRON 4 MG/2 ML VIAL IVP PRN (09:09)
[2022-02-27] MEDS: PANTOPRAZOLE 40 MG/10 ML VIAL IVP SCH (09:09)
[2022-02-27] MEDS: AZITHROMYCIN 500 MG TAB PO SCH (09:10)
[2022-02-27] MEDS: METOPROLOL TARTRATE 25 MG TAB PO SCH ×2 (09:10→21:07)
[2022-02-27] MEDS: methylPREDNISolone SOD SUCCI 40 MG/ML 1 ML VIAL IV SCH ×2 (09:10→21:07)
[2022-02-27] MEDS: SPIRONOLACTONE 25 MG TAB PO SCH (09:10)
[2022-02-27] MEDS: SERTRALINE 100 MG TAB PO SCH ×2 (09:10→21:08)
[2022-02-27 09:30] LABS: African American GFR (CKD) 110.4 (60.0-200.0); Anion Gap 6.6 mmol/L (10.00-18.00); BUN/Creat Ratio 40.12 Ratio (12.00-20.00); Blood Urea Nitrogen 19.7 mg/dL (9.0-27.0); Calcium 9.3 mg/dL (8.7-10.3); Carbon Dioxide 30.5 mmol/L (20.0-27.5); Non-African American GFR(CKD) 95.2 (60.0-200.0); Potassium 4.6 mmol/L (3.5-5.5)
--- NOTE | 2022-02-27 10:14 | P.CONS ---
History of Present Illness - Reason for Consult Consult date: 02/26/22 Bacteremia Requesting physician: Caesar De La O - Chief Complaint Increasing shortness of breath x few days - History of Present Illness Patient is 77-year-old female with a past medical history significant for asthma/COPD GERD hypertension hyperlipidemia anxiety depression former smoker and is currently on her 2 L nasal cannula presenting to the ER for evaluation of increasing shortness of breath symptom has been going on for few days before presentation to the hospital patient also complaining of cough which has been moderate intensity with some pleuritic chest pain did have occasional sputum but no hemoptysis patient denies having any nausea no vomiting no abdominal pain or any diarrhea patient on presentation to the hospital was afebrile and no fever has been recorded subsequently patient is currently satting 96% on 2 L nasal cannula which is baseline for her patient did have a normal white count kidney function has been normal liver exams are normal CRP mildly elevated at 3.1 Pro-Terry 0.07 urine is negative patient did tested positive for RSV influenza and COVID testing was negative patient did have blood cultures drawn which came back positive with gram-positive cocci that has prompted this infectious disease consultation, patient currently denies having any open skin sores or any swelling redness or any joint swelling Review of Systems Positive point has been mentioned in the HPI rest of the systems are negative Past Medical History Past Medical History: Asthma, Chest Pain / Angina, COPD, GERD/Reflux, Hyperlipidemia, Hypertension, Pneumonia Additional Past Medical History / Comment(s): oxygen [place] @2L continuous, gallstones, pernicious anemia History of Any Multi-Drug Resistant Organisms: None Reported Past Surgical History: Hernia Repair, Joint Replacement, Orthopedic Surgery, Tonsillectomy Additional Past Surgical History / Comment(s): left elbow surgery, abscess in stomach area, abdominial scar tissue, tamie oophorectomy, left knee surgery, left hip replacement Past Anesthesia/Blood Transfusion Reactions: No Reported Reaction Past Psychological History: Anxiety, Depression Smoking Status: Former smoker Past Alcohol Use History: None Reported Additional Past Alcohol Use History / Comment(s): quit smoking 2001, smoked since age 18, 2 PPD Past Drug Use History: None Reported - Past Family History Mother Family Medical History: No Reported History Additional Family Medical History / Comment(s): MS Father Family Medical History: CVA/TIA, Myocardial Infarction ([place]) Additional Family Medical History / Comment(s): ETOH Medications and Allergies Home Medications Medication Instructions Recorded Confirmed Type Simvastatin [Zocor] 40 mg PO HS 02/20/15 02/25/22 History Montelukast Sodium [Singulair] 10 mg PO HS 03/01/16 02/25/22 History Albuterol Sulfate [Ventolin HFA] 2 puff INHALATION RT-Q4H PRN 06/20/21 02/25/22 History Ipratropium/Albuterol Sulfate 1 puff INHALATION RT-QID 06/20/21 02/25/22 History [Combivent Respimat Inhaler] Omeprazole 20 mg PO DAILY 06/20/21 02/25/22 History Sertraline [Zoloft] 200 mg PO BID 06/20/21 02/25/22 History Acetaminophen [Tylenol Extra 1,000 mg PO Q6H PRN 11/08/21 02/25/22 History Strength] Budesonide-Formot 160-4.5 Mcg 2 puff INHALATION RT-BID #1 inh 12/20/21 02/25/22 Rx [Symbicort 160-4.5 Mcg Inhaler] lisinopriL [Zestril] 2.5 mg PO DAILY #90 tab 12/21/21 02/25/22 Rx Ipratropium-Albuterol Nebulize 3 ml INHALATION RT-Q2H PRN each 12/22/21 02/25/22 Rx [Duoneb 0.5 mg-3 mg/3 ml Soln] Ipratropium-Albuterol Nebulize 3 ml INHALATION RT-QID #100 each 12/22/21 02/25/22 Rx [Duoneb 0.5 mg-3 mg/3 ml Soln] Ondansetron [Zofran] 4 mg PO Q8HR PRN #20 tab 12/22/21 02/25/22 Rx ALPRAZolam [Xanax] 0.5 mg PO TID PRN #10 tab 12/28/21 02/25/22 Rx Nitroglycerin Sl Tabs [Nitrostat] 0.4 mg SUBLINGUAL Q5M PRN #30 tab 12/28/21 02/25/22 Rx Spironolactone [Aldactone] 25 mg PO DAILY #30 tab 12/28/21 02/25/22 Rx Metoprolol Succinate (ER) [Toprol 50 mg PO DAILY 02/25/22 02/25/22 History XL] Allergies Allergy/AdvReac Type Severity Reaction Status Date / Time No Known Allergies Allergy Verified 02/25/22 11:09 Physical Exam Vitals: Vital Signs Temp Pulse Pulse Resp BP Pulse Ox 02/26/22 08:39 103 H 02/26/22 08:29 97 02/26/22 08:25 96 02/26/22 07:49 18 02/26/22 07:00 97.5 F L 84 18 106/73 100 02/26/22 02:46 98.0 F 81 18 91/56 95 02/26/22 02:04 75 17 02/25/22 20:09 105 H 02/25/22 20:04 119 H 17 02/25/22 18:56 97.4 F L 119 H 17 116/87 97 02/25/22 16:03 104 H 02/25/22 15:51 101 H 02/25/22 15:15 97.8 F 120 H 16 108/75 96 02/25/22 12:40 138 H 02/25/22 12:28 133 H Intake and Output 02/25/22 02/26/22 02/26/22 22:59 06:59 14:59 Intake Total 240 Output Total 1 250 Balance 239 -250 Intake: Oral 240 Output: Urine 1 250 Other: Voiding Method Toilet Toilet # Voids 1 2 1 GENERAL DESCRIPTION: Elderly female lying in bed, no distress. No tachypnea or accessory muscle of respiration use. HEENT: Shows Pallor , no scleral icterus. Oral mucous membrane is dry. No pharyngeal erythema or thrush NECK: Trachea central, no thyromegaly. LUNGS: Unlabored breathing. Coarse breath sounds bilaterally HEART: S1, S2, regular rate and rhythm. No loud murmur ABDOMEN: Soft, no tenderness , guarding or rigidity, no organomegaly EXTREMITIES: No edema of feet. SKIN: No rash, no masses palpable. NEUROLOGICAL: The patient is awake, alert, oriented x3, mood and affect normal. Results CBC & Chem 7: 03/01/22 05:37 03/02/22 09:04 Labs: Abnormal Lab Results - Last 24 Hours (Table) 02/26/22 Range/Units 05:34 Sodium 129 L (137-145) mmol/L Chloride 95 L (98-107) mmol/L Creatinine 0.41 L (0.52-1.04) mg/dL Glucose 115 H (74-99) mg/dL Microbiology - Last 24 Hours (Table) 02/25/22 03:00 Blood Culture - Preliminary Blood No Growth after 24 hours 02/25/22 03:15 Blood Culture Gram Stain - Preliminary Blood 02/25/22 03:15 Blood Culture - Final Blood Assessment and Plan (1) Positive blood culture Current Visit: Yes Status: Acute Code(s): R78.81 - BACTEREMIA SNOMED Code( s): 721910380 (2) RSV infection Current Visit: Yes Status: Acute Code(s): B33.8 - OTHER SPECIFIED VIRAL DISEASES SNOMED Code(s): 88318748 Plan: 1patient presented to hospital with increasing shortness of breath which is more likely to her COPD exacerbation possibly exacerbated by RSV clinically not behaving as secondary bacterial pneumonia as the patient did have a normal procalcitonin chest x-ray did not show any consolidation suspicious for bacterial pneumonia. 2positive blood culture with gram-positive cocci question is staph epi and possible skin contamination we will wait for the ID if finalized as staph epi vancomycin will be discontinued. 3patient to continue with the steroids bronchodilator for underlying COPD the patient per pulmonary and primary team. 4treatment of RSV is mostly supportive. We will follow on clinical condition and cultures to further adjust medication if needed Thank you for this consultation we will follow the patient along with you Time with Patient: Greater than 30
[2022-02-27] MEDS: ACETAMINOPHEN TAB 325 MG TAB PO PRN ×2 (13:52→21:07)
--- NOTE | 2022-02-27 15:15 | P.PN ---
Subjective Progress Note Date: 02/27/22 Principal diagnosis: Positive blood culture and RSV positive Patient is 77-year-old female with a past medical history significant for asthma/COPD GERD hypertension hyperlipidemia anxiety depression former smoker and is currently on her 2 L nasal cannula presenting to the ER for evaluation of increasing shortness of breath symptom has been going on for few days before presentation to the hospital , patient had been diagnosed with a COPD exacerbation this tested positive for RSV and did have a positive blood culture subsequently finalized as staph epi. On today's evaluation that is 02/27/2022, the patient denies having any fever or any chills, the patient is breathing slightly comfortably denies having any worsening cough or sputum production no nausea no vomiting no abdominal pain or diarrhea Objective - Vital Signs Vital signs: Vital Signs Temp 98.2 F 02/27/22 15:00 Pulse 79 02/27/22 15:00 Resp 18 02/27/22 15:00 BP 124/78 02/27/22 15:00 Pulse Ox 97 02/27/22 15:00 FiO2 Intake & Output 02/26/22 02/27/22 02/27/22 18:59 06:59 18:59 Intake Total 600 500 118 Output Total 250 700 600 Balance 350 -200 -482 Intake: Oral 600 500 118 Output: Urine 250 700 600 Post Void Residual 0 Other: Voiding Method External Catheter Bedside Commode # Voids 1 - Exam GENERAL DESCRIPTION: An elderly female lying in bed in no distress RESPIRATORY SYSTEM: Unlabored breathing , coarse breath sounds bilaterally HEART: S1 S2 regular rate and rhythm , ABDOMEN: Soft , no tenderness EXTREMITIES: No edema feet - Labs CBC & Chem 7: 02/27/22 05:22 02/27/22 05:22 Labs: Abnormal Lab Results - Last 24 Hours (Table) 02/27/22 02/27/22 Range/Units 05:22 05:22 Hgb 11.4 L (12.0-15.0) g/dL Hct 36.7 L (37.2-46.3) % MCH 26.3 L (27.0-32.0) pg MCHC 31.1 L (32.0-37.0) g/dL RDW 15.3 H (11.5-14.5) % Lymphocytes # 0.66 L (0.90-5.00) X 10*3/uL Eosinophils # 0 L (0.04-0.35) X 10*3/uL Sodium 131 L (135-145) mmol/L Chloride 94 L (96-109) mmol/L Carbon Dioxide 30.5 H (20.0-27.5) mmol/L Anion Gap 6.60 L (10.00-18.00) mmol/L Creatinine 0.5 L (0.6-1.5) mg/dL BUN/Creatinine Ratio 40.12 H (12.00-20.00) Ratio Glucose 132 H (70-110) mg/dL Microbiology - Last 24 Hours (Table) 02/26/22 05:34 Blood Culture - Preliminary Blood No Growth after 24 hours 02/25/22 03:00 Blood Culture - Preliminary Blood No Growth after 48 hours 02/25/22 03:15 Blood Culture Gram Stain - Preliminary Blood Blood Culture - Preliminary Coagulase Negative Staph Assessment and Plan (1) Positive blood culture Current Visit: Yes Status: Acute Code(s): R78.81 - BACTEREMIA SNOMED Code(s): 981921365 (2) RSV infection Current Visit: Yes Status: Acute Code(s): B33.8 - OTHER SPECIFIED VIRAL DISEASES SNOMED Code(s): 22850500 Plan: 1patient presented to hospital with increasing shortness of breath which is more likely to her COPD exacerbation possibly exacerbated by RSV clinically not behaving as secondary bacterial pneumonia as the patient did have a normal procalcitonin chest x-ray did not show any consolidation suspicious for bacterial pneumonia. 2positive blood culture with gram-positive cocci which has been finalized as staph epi and possible skin contamination , vancomycin will be discontinued. 3patient to continue with the steroids bronchodilator for underlying COPD the patient per pulmonary and primary team. 4treatment of RSV is mostly supportive. Time with Patient: Less than 30
--- NOTE | 2022-02-27 16:39 | PN ---
PROGRESS NOTE DATE OF SERVICE: 02/27/2022 SUBJECTIVE: This is a 77-year-old woman, who was admitted with acute RSV infection and left lower lobe pneumonia, is being closely monitored. No chest pain. No palpitations. No fever. OBJECTIVE: VITAL SIGNS: Pulse is 71, blood pressure 126/70, respirations 18. CHEST: A few scattered rhonchi. ABDOMEN: Soft. NERVOUS SYSTEM: Nonfocal. LABORATORY DATA: Reviewed. ASSESSMENT: 1. Acute RSV infection with left lower lobe pneumonia with [id number] hypoxic respiratory failure. 2. Mptng-[id number] heart failure. 3. History of asthma and chronic obstructive pulmonary disease. 4. Hyponatremia. 5. Hypertension. 6. Multiple medical issues. RECOMMENDATIONS: Recommend to continue current medications and symptomatic treatment. Otherwise, at this time, I recommend to continue the bronchodilators and continue the vancomycin. Infectious Disease and Pulmonary consultation. Further recommendations to follow. MMODL / IJN: [id number] /
[2022-02-27] MEDS: MONTELUKAST 10 MG TAB PO SCH (21:08)
[2022-02-27] MEDS: ATORVASTATIN 20 MG TAB PO SCH (21:08)
[2022-02-28] MEDS: IPRATROPIUM-ALBUTEROL 3 ML NEB INHALATION PRN (00:12)
[2022-02-28] MEDS: ALPRAZolam 0.5 MG TAB PO PRN ×3 (02:00→14:15)
[2022-02-28] MEDS ORDERED: VANCOMYCIN TROUGH DUE 1 EACH MISC MISCELLANE ONE (05:00)
[2022-02-28 06:47] LABS: African American GFR (CKD) >90 (>60 ml/min/1.73 sqM); Anion Gap 5 mmol/L; Blood Urea Nitrogen 17 mg/dL (7-17); Calcium 8.9 mg/dL (8.4-10.2); Carbon Dioxide 34 mmol/L (22-30); Chloride 96 mmol/L (98-107); Glucose 114 mg/dL (74-99); Non-African American GFR(CKD) >90 (>60 ml/min/1.73 sqM); Potassium 4.8 mmol/L (3.5-5.1); Sodium 135 mmol/L (137-145)
[2022-02-28] MEDS: ONDANSETRON 4 MG/2 ML VIAL IVP PRN (07:58)
[2022-02-28] MEDS: SPIRONOLACTONE 25 MG TAB PO SCH (08:02)
[2022-02-28] MEDS: SERTRALINE 100 MG TAB PO SCH ×2 (08:02→22:11)
[2022-02-28] MEDS: PANTOPRAZOLE 40 MG/10 ML VIAL IVP SCH (08:02)
[2022-02-28] MEDS: METOPROLOL TARTRATE 25 MG TAB PO SCH ×2 (08:02→22:11)
[2022-02-28] MEDS: methylPREDNISolone SOD SUCCI 40 MG/ML 1 ML VIAL IV SCH ×2 (08:02→22:11)
[2022-02-28] MEDS: HEPARIN SODIUM,PORCINE/PF 5,000 UNIT/0.5 ML SYRINGE SQ SCH ×2 (08:02→22:12)
[2022-02-28] MEDS: IPRATROPIUM-ALBUTEROL 3 ML NEB INHALATION SCH ×4 (08:25→20:16)
[2022-02-28] MEDS: SYMBICORT 160-4.5 MCG INHALER INHALATION SCH ×2 (08:25→20:16)
[2022-02-28 08:36] LABS: Basophils # (A) 0.01 X 10*3/uL (0.00-0.10); Basophils % (A) 0.1 %; Eosinophils # (A) 0 X 10*3/uL (0.04-0.35); Eosinophils % (A) 0 %; HCT 35.9 % (37.2-46.3); HGB 11.4 g/dL (12.0-15.0); Immature Grans, Automated 0.1 %; Lymphocytes # (A) 0.77 X 10*3/uL (0.90-5.00); Lymphocytes % (A) 10.3 %; MCH 26.8 pg (27.0-32.0); MCHC 31.8 g/dL (32.0-37.0); MCV 84.5 fL (80.0-97.0); Monocytes # (A) 0.56 X 10*3/uL (0.20-1.00); Monocytes % (A) 7.5 %; NRBC Per 100 WBC 0 /100 WBCS (0.0-0.0); Neutrophils # (A) 6.11 X 10*3/uL (1.80-7.70); Platelet Count 284 X 10*3/uL (140-440); RBC 4.25 X 10*6/uL (4.10-5.20); RDW 15.4 % (11.5-14.5); WBC 7.46 X 10*3/uL (4.50-10.00)
[2022-02-28] MEDS ORDERED: NON FORMULARY DRUG (Omeprazole [Omeprazole] 20 MG Capsule.Dr) PO SCH (09:00)
[2022-02-28] MEDS ORDERED: FUROSEMIDE 10 MG/ML 4 ML VIAL IV STA (12:39)
--- NOTE | 2022-02-28 12:39 | P.PN ---
Subjective Progress Note Date: 02/28/22 This is a 77 year old female with history of recurrent chest pain, asthma, COPD, GERD, hypertension, hyperlipidemia, anxiety/depression. Patient is a former smoker and wears 2L of oxygen chronically. Presents to the emergency center by EMS with complaints of progressive shortness of breath, as well as cough with pleuritic chest pain. Denies fever, denies chills. Reports an episode of diarrhea at home with decreased appetite, reports nausea. Denies emesis. She is admitted to the hospital and found to be positive for RSV by PCR testing. Currently receiving IV fluids at 75 mls/hour, IV solumedrol and has been started on empiric antibiotic coverage with azithromycin PO. Patient had chest xray on admission showing new minimal 2cm infiltrate left lateral lung base likely COPD. No heart failure. Currently she is afebrile, heart rate is in the 90s normal sinus rhythm, blood pressure on the lower side at 100/67, which will recommend to hold lisinopril. Sodium was found to be 128 on admission and remains at 128 after hydration. Recent echocardiogram from Dec 2021 shows an EF of 35 to 40%. Will recommend to stop IV fluids at this time. Patient reports drinking plenty of water at home but has had poor oral intake. She is monitored in observation further recommendations by pulmonary services. 02/26/2022 Patient is evaluated today resting in bed. Reports decreased appetite, sweaty/chills overnight. Has some nausea, denies emesis or diarrhea today. Continues to feel short of breath with weak cough unable to expectorate much. Blood culture preliminary showing gram positive cocci and patient was started on IV vancomycin with infectious disease consultation. Sodium up to 129, received a dose of IV lasix yesterday. proBNP 1470. Procalcitonin level negative at 0.07. Patient will receive another dose of lasix today IV with intake and output monitoring. Check bladder scan. 02/28/2022 Patient is seen and evaluated in follow-up today appears to be lethargic and reports she is not feeling well. Patient is being followed by infectious disease along with pulmonary maintained on DuoNeb treatments along with now initiating IV steroids. Blood cultures positive for coag negative staph most likely contaminant and antibiotics have been discontinued. Patient is afebrile and pro-calcitonin was low although patient was positive for RSV. Per infectious disease mostly supportive care for this. Patient encouraged to increase activity as tolerated and also encouraged oral intake. Continue with consistent carb diet and recommend monitoring Accu-Cheks before meals and at bedtime and will increase the long-acting this patient's blood sugars have been elevated and is now being initiated on IV steroids. Potassium mildly elevated at 4.8 and will follow-up with repeat labs recommend low potassium diet. Sodium is improved at 135 today. Patient continues to be bronchospastic and wheezy and maintained on 4 liters currently and normally wears 2 L in the outpatient setting. Recommend wean FiO2 as tolerated. Review of Systems Constitutional: Reports fatigue, no reports of chills/sweats Cardio vascular: denied any chest pain, palpitations Gastrointestinal: denied any vomiting, diarrhea. Has some nausea. Pulmonary: Reports shortness of breath and weak cough Neurologic denied any new focal deficits Active Medications Acetaminophen (Acetaminophen Tab 325 Mg Tab) 650 mg PO Q4HR PRN PRN Reason: Mild Pain or Fever > 100.5 Last Admin: 02/27/22 21:07 Dose: 650 mg Albuterol/Ipratropium (Ipratropium-Albuterol 3 Ml Neb) 3 ml INHALATION RT-Q2H PRN PRN Reason: Shortness Of Breath Or Wheezing Last Admin: 02/28/22 00:12 Dose: 3 ml Albuterol/Ipratropium (Ipratropium-Albuterol 3 Ml Neb) 3 ml INHALATION RT-QID [facility] Last Admin: 02/28/22 11:56 Dose: 3 ml Alprazolam (Alprazolam 0.5 Mg Tab) 0.5 mg PO TID PRN PRN Reason: Anxiety Last Admin: 02/28/22 07:57 Dose: 0.5 mg Atorvastatin Calcium (Atorvastatin 20 Mg Tab) 20 mg PO HS [facility] Last Admin: 02/27/22 21:08 Dose: 20 mg Budesonide/Formoterol Fumarate (Symbicort 160-4.5 Mcg Inhaler) 2 puff INHALATION RT-BID [facility] Last Admin: 02/28/22 08:25 Dose: 2 puff Heparin Sodium (Porcine) (Heparin Sodium,Porcine/Pf 5,000 Unit/0.5 Ml Syringe) 5,000 unit SQ Q12HR [facility] Last Admin: 02/28/22 08:02 Dose: 5,000 unit Methylprednisolone Sodium Succinate (Methylprednisolone Sod Succi 40 Mg/Ml 1 Ml Vial) 40 mg IV Q12HR [facility] Last Admin: 02/28/22 08:02 Dose: 40 mg Metoprolol Tartrate (Metoprolol Tartrate 25 Mg Tab) 25 mg PO BID [facility] Last Admin: 02/28/22 08:02 Dose: 25 mg Montelukast Sodium (Montelukast 10 Mg Tab) 10 mg PO HS [facility] Last Admin: 02/27/22 21:08 Dose: 10 mg Naloxone HCl (Naloxone 0.4 Mg/Ml 1 Ml Vial) 0.2 mg IVP Q2M PRN PRN Reason: Opioid Reversal Nitroglycerin (Nitroglycerin Sl Tabs 0.4 Mg Tab) 0.4 mg SUBLINGUAL Q5M PRN PRN Reason: Chest Pain Ondansetron HCl (Ondansetron 4 Mg/2 Ml Vial) 4 mg IVP Q6HR PRN PRN Reason: Nausea And Vomiting Last Admin: 02/28/22 07:58 Dose: 4 mg Pantoprazole Sodium (Pantoprazole 40 Mg/10 Ml Vial) 40 mg IVP DAILY [facility] Last Admin: 02/28/22 08:02 Dose: 40 mg Sertraline HCl (Sertraline 100 Mg Tab) 200 mg PO BID [facility] Last Admin: 02/28/22 08:02 Dose: 200 mg Spironolactone (Spironolactone 25 Mg Tab) 25 mg PO DAILY [facility] Last Admin: 02/28/22 08:02 Dose: 25 mg PHYSICAL EXAMINATION: GENERAL: The patient is alert and oriented x3, reports feeling lethargic and generalized weakness. Well developed, well nourished. Currently on 3 to 4 L nasal cannula HEENT: Pupils are round and equally reacting to light. EOMI. No scleral icterus. No conjunctival pallor. Normocephalic, atraumatic. No pharyngeal erythema. No thyromegaly. CARDIOVASCULAR: S1 and S2 muffled PULMONARY: Lungs are tight and diminished. some faint basilar crackles noted. ABDOMEN: Soft, nontender, nondistended, normoactive bowel sounds. No palpable or ganomegaly. MUSCULOSKELETAL: No joint swelling or deformity. EXTREMITIES: No cyanosis, clubbing, or pedal edema. NEUROLOGICAL: Gross neurological examination did not reveal any focal deficits. SKIN: No rashes. Assessment: Acute on chronic hypoxemic respiratory failure secondary to acute RSV infection with left lung base infiltrate and tracheobronchitis, currently on 4l nasal cannula, wears 2L chronically Gram positive bacteremia , most likely contaminant and repeat cultures are negative Mild acute on chronic heart failure, systolic dysfunction History asthma/COPD with acute exacerbation secondary to above Hyponatremia initially hypovolemic with elevated BNP Hypertension currently low Tachycardia likely from missing toprol dose which is resumed Hyperlipidemia, history History of SVT Gastroesophageal reflux disease Anxiety/Depression Former smoker GI Prophylaxis DVT Prophylaxis Plan: Recommend continue supplemental oxygen and wean as tolerated. Patient is currently maintained on 4 L although chronically wears 2 L outpatient. Pulmonary following patient in continues on DuoNeb treatments along with Symbicort and continued IV steroids. Patient's blood sugars have been elevated and will continue sliding scale and increase the long-acting and recommend Accu- Cheks before meals and at bedtime. Recommend consistent carb diet. Encouraged increase activity as tolerated Patient is being closely monitored off antibiotics with infectious disease following. Repeat blood cultures are negative Possible discharge in the next 24-48 hours. Due to multiple complex medical issues, prognosis is guarded. The impression and plan of care has been dictated by Janell Luevano, Nurse Practitioner as directed. Dr. Carrillo MD I have performed a history and examination and MDM of this patient, discussed the same with the dictator, and agree with the dictator's assessment and plan as written ,documented as a scribe. Based on total visit time, I have performed more than 50% of the visit. Objective - Vital Signs Vital signs: Vital Signs Temp 98.8 F 02/28/22 02:30 Pulse 88 02/28/22 12:14 Resp 18 02/28/22 08:00 BP 138/83 02/28/22 08:00 Pulse Ox 97 02/28/22 08:00 FiO2 Intake & Output 02/27/22 02/28/22 02/28/22 18:59 06:59 18:59 Intake Total 236 Output Total 900 1100 Balance -664 -1100 Intake: Oral 236 Output: Urine 900 1100 Other: Voiding Method Bedside Commode Bedside Commode - Labs CBC & Chem 7: 02/28/22 05:23 02/28/22 05:23 Labs: Abnormal Lab Results - Last 24 Hours (Table) 02/28/22 02/28/22 Range/Units 05:23 05:23 Hgb 11.4 L (12.0-15.0) g/dL Hct 35.9 L (37.2-46.3) % MCH 26.8 L (27.0-32.0) pg MCHC 31.8 L (32.0-37.0) g/dL RDW 15.4 H (11.5-14.5) % Lymphocytes # 0.77 L (0.90-5.00) X 10*3/uL Eosinophils # 0 L (0.04-0.35) X 10*3/uL Sodium 135 L (137-145) mmol/L Chloride 96 L (98-107) mmol/L Carbon Dioxide 34 H (22-30) mmol/L Creatinine 0.49 L (0.52-1.04) mg/dL Glucose 114 H (74-99) mg/dL Microbiology - Last 24 Hours (Table) 02/25/22 03:15 Blood Culture Gram Stain - Final Blood Blood Culture - Final Coagulase Negative Staph 02/26/22 05:34 Blood Culture - Preliminary Blood No Growth after 48 hours 02/25/22 03:00 Blood Culture - Preliminary Blood No Growth after 72 hours
[2022-02-28] MEDS: ACETAMINOPHEN TAB 325 MG TAB PO PRN (14:14)
[2022-02-28] MEDS: FORMOTEROL FUMARATE 20 MCG/2 ML NEBU INHALATION SCH ×2 (16:08→20:16)
--- NOTE | 2022-02-28 18:25 | P.PN ---
Subjective Progress Note Date: 02/28/22 Principal diagnosis: Positive blood culture and RSV positive Patient is 77-year-old female with a past medical history significant for asthma/COPD GERD hypertension hyperlipidemia anxiety depression former smoker and is currently on her 2 L nasal cannula presenting to the ER for evaluation of increasing shortness of breath symptom has been going on for few days before presentation to the hospital , patient had been diagnosed with a COPD exacerbation this tested positive for RSV and did have a positive blood culture subsequently finalized as staph epi. On today's evaluation that is 02/28/2022, the patient remains to be afebrile, the patient is complaining of more shortness of breath today and also complaining of cough bringing up some greenish sputum and no hemoptysis no nausea no vomiting no abdominal pain or diarrhea Objective - Vital Signs Vital signs: Vital Signs Temp 98.8 F 02/28/22 02:30 Pulse 84 02/28/22 08:39 Resp 18 02/28/22 08:00 BP 138/83 02/28/22 08:00 Pulse Ox 97 02/28/22 08:00 FiO2 Intake & Output 02/27/22 02/28/22 02/28/22 18:59 06:59 18:59 Intake Total 236 Output Total 900 1100 Balance -664 -1100 Intake: Oral 236 Output: Urine 900 1100 Other: Voiding Method Bedside Commode Bedside Commode - Exam GENERAL DESCRIPTION: An elderly female lying in bed in no distress RESPIRATORY SYSTEM: Unlabored breathing , coarse breath sounds bilaterally HEART: S1 S2 regular rate and rhythm , ABDOMEN: Soft , no tenderness EXTREMITIES: No edema feet - Labs CBC & Chem 7: 02/28/22 05:23 02/28/22 05:23 Labs: Abnormal Lab Results - Last 24 Hours (Table) 02/28/22 02/28/22 Range/Units 05:23 05:23 Hgb 11.4 L (12.0-15.0) g/dL Hct 35.9 L (37.2-46.3) % MCH 26.8 L (27.0-32.0) pg MCHC 31.8 L (32.0-37.0) g/dL RDW 15.4 H (11.5-14.5) % Lymphocytes # 0.77 L (0.90-5.00) X 10*3/uL Eosinophils # 0 L (0.04-0.35) X 10*3/uL Sodium 135 L (137-145) mmol/L Chloride 96 L (98-107) mmol/L Carbon Dioxide 34 H (22-30) mmol/L Creatinine 0.49 L (0.52-1.04) mg/dL Glucose 114 H (74-99) mg/dL Microbiology - Last 24 Hours (Table) 02/26/22 05:34 Blood Culture - Preliminary Blood No Growth after 48 hours 02/25/22 03:00 Blood Culture - Preliminary Blood No Growth after 72 hours Assessment and Plan (1) Positive blood culture Current Visit: Yes Status: Acute Code(s): R78.81 - BACTEREMIA SNOMED Code(s): 885129660 (2) RSV infection Current Visit: Yes Status: Acute Code(s): B33.8 - OTHER SPECIFIED VIRAL DISEASES SNOMED Code(s): 91957633 Plan: 1patient presented to hospital with increasing shortness of breath which is more likely to her COPD exacerbation possibly exacerbated by RSV clinically not behaving as secondary bacterial pneumonia as the patient did have a normal procalcitonin chest x-ray did not show any consolidation suspicious for bacterial pneumonia. 2positive blood culture with gram-positive cocci which has been finalized as staph epi and possible skin contamination , no need for vancomycin 3treatment of RSV is mostly supportive. 4-patient now complaining of increasing shortness of breath also with a purulent sputum with a question of tracheal bronchitis versus developing pneumonia we will obtain a chest x-ray CRP pro calcitonin and empirically add Zosyn will waiting for cultures to finalize Time with Patient: Less than 30
[2022-02-28] MEDS ORDERED: FORMOTEROL FUMARATE 20 MCG/2 ML NEBU INHALATION SCH (20:00)
[2022-02-28] MEDS: ATORVASTATIN 20 MG TAB PO SCH (22:11)
[2022-02-28] MEDS: MONTELUKAST 10 MG TAB PO SCH (22:11)
[2022-02-28] MEDS: PIPERACILLIN-TAZOBACTAM 3.375 GM in SODIUM CHLORIDE 0.9% 100 ML IVPB SCH (22:12)
[2022-03-01] MEDS: ACETAMINOPHEN TAB 325 MG TAB PO PRN (08:05)
[2022-03-01] MEDS: ONDANSETRON 4 MG/2 ML VIAL IVP PRN (08:05)
[2022-03-01] MEDS: ALPRAZolam 0.5 MG TAB PO PRN ×3 (08:05→21:23)
[2022-03-01] MEDS: IPRATROPIUM-ALBUTEROL 3 ML NEB INHALATION SCH ×4 (08:28→20:13)
[2022-03-01] MEDS: FORMOTEROL FUMARATE 20 MCG/2 ML NEBU INHALATION SCH ×2 (08:28→20:13)
[2022-03-01] MEDS: SYMBICORT 160-4.5 MCG INHALER INHALATION SCH ×2 (08:28→20:14)
[2022-03-01 08:35] LABS: Basophils # (A) 0 X 10*3/uL (0.00-0.10); Basophils % (A) 0 %; Eosinophils # (A) 0 X 10*3/uL (0.04-0.35); Eosinophils % (A) 0 %; HCT 36.3 % (37.2-46.3); HGB 11.7 g/dL (12.0-15.0); Immature Grans, Automated 0.1 %; Lymphocytes # (A) 0.89 X 10*3/uL (0.90-5.00); Lymphocytes % (A) 13.3 %; MCHC 32.2 g/dL (32.0-37.0); MCV 83.8 fL (80.0-97.0); Mean Platelet Volume 10.5 fL (9.5-12.2); Monocytes # (A) 0.48 X 10*3/uL (0.20-1.00); Monocytes % (A) 7.2 %; NRBC Per 100 WBC 0 /100 WBCS (0.0-0.0); Neutrophils % (A) 79.4 %; Platelet Count 290 X 10*3/uL (140-440); RBC 4.33 X 10*6/uL (4.10-5.20); RDW 15.2 % (11.5-14.5); WBC 6.68 X 10*3/uL (4.50-10.00)
[2022-03-01 09:08] LABS: African American GFR (CKD) 109.7 (60.0-200.0); Anion Gap 9.9 mmol/L (10.00-18.00); BUN/Creat Ratio 25.4 Ratio (12.00-20.00); Blood Urea Nitrogen 12.7 mg/dL (9.0-27.0); C Reactive Protein 0.5 mg/dL (0.00-0.80); Calcium 9.5 mg/dL (8.7-10.3); Carbon Dioxide 32.1 mmol/L (20.0-27.5); Non-African American GFR(CKD) 94.7 (60.0-200.0); Potassium 4.8 mmol/L (3.5-5.5)
[2022-03-01] MEDS: PIPERACILLIN-TAZOBACTAM 3.375 GM in SODIUM CHLORIDE 0.9% 100 ML IVPB SCH ×3 (09:15→23:12)
[2022-03-01] MEDS: SPIRONOLACTONE 25 MG TAB PO SCH (09:16)
[2022-03-01] MEDS: SERTRALINE 100 MG TAB PO SCH ×2 (09:16→21:23)
[2022-03-01] MEDS: PANTOPRAZOLE 40 MG/10 ML VIAL IVP SCH (09:16)
[2022-03-01] MEDS: HEPARIN SODIUM,PORCINE/PF 5,000 UNIT/0.5 ML SYRINGE SQ SCH ×2 (09:16→21:23)
[2022-03-01] MEDS: methylPREDNISolone SOD SUCCI 40 MG/ML 1 ML VIAL IV SCH ×2 (09:17→21:23)
[2022-03-01] MEDS: METOPROLOL TARTRATE 25 MG TAB PO SCH ×2 (09:17→21:23)
--- NOTE | 2022-03-01 16:25 | XR ---
EXAMINATION TYPE: XR chest 2V DATE OF EXAM: 03/01/2022 COMPARISON: 02/25/2022 INDICATION: Pneumonia TECHNIQUE: Frontal and lateral views of the chest are obtained. FINDINGS: The heart size is normal. The pulmonary vasculature is normal. The lungs are clear. There is hyperinflation and flattening the diaphragms compatible with COPD. The re is an increased AP diameter. IMPRESSION: 1. No acute pulmonary process. 2. COPD
[2022-03-01] MEDS: ATORVASTATIN 20 MG TAB PO SCH (21:23)
[2022-03-01] MEDS: MONTELUKAST 10 MG TAB PO SCH (21:23)
[2022-03-02] MEDS: ONDANSETRON 4 MG/2 ML VIAL IVP PRN (04:08)
--- NOTE | 2022-03-02 04:49 | P.PN ---
Subjective Progress Note Date: 03/01/22 This is a 77 year old female with history of recurrent chest pain, asthma, COPD, GERD, hypertension, hyperlipidemia, anxiety/depression. Patient is a former smoker and wears 2L of oxygen chronically. Presents to the emergency center by EMS with complaints of progressive shortness of breath, as well as cough with pleuritic chest pain. Denies fever, denies chills. Reports an episode of diarrhea at home with decreased appetite, reports nausea. Denies emesis. She is admitted to the hospital and found to be positive for RSV by PCR testing. Currently receiving IV fluids at 75 mls/hour, IV solumedrol and has been started on empiric antibiotic coverage with azithromycin PO. Patient had chest xray on admission showing new minimal 2cm infiltrate left lateral lung base likely COPD. No heart failure. Currently she is afebrile, heart rate is in the 90s normal sinus rhythm, blood pressure on the lower side at 100/67, which will recommend to hold lisinopril. Sodium was found to be 128 on admission and remains at 128 after hydration. Recent echocardiogram from Dec 2021 shows an EF of 35 to 40%. Will recommend to stop IV fluids at this time. Patient reports drinking plenty of water at home but has had poor oral intake. She is monitored in observation further recommendations by pulmonary services. 02/26/2022 Patient is evaluated today resting in bed. Reports decreased appetite, sweaty/chills overnight. Has some nausea, denies emesis or diarrhea today. Continues to feel short of breath with weak cough unable to expectorate much. Blood culture preliminary showing gram positive cocci and patient was started on IV vancomycin with infectious disease consultation. Sodium up to 129, received a dose of IV lasix yesterday. proBNP 1470. Procalcitonin level negative at 0.07. Patient will receive another dose of lasix today IV with intake and output monitoring. Check bladder scan. 02/28/2022 Patient is seen and evaluated in follow-up today appears to be lethargic and reports she is not feeling well. Patient is being followed by infectious disease along with pulmonary maintained on DuoNeb treatments along with now initiating IV steroids. Blood cultures positive for coag negative staph most likely contaminant and antibiotics have been discontinued. Patient is afebrile and pro-calcitonin was low although patient was positive for RSV. Per infectious disease mostly supportive care for this. Patient encouraged to increase activity as tolerated and also encouraged oral intake. Continue with consistent carb diet and recommend monitoring Accu-Cheks before meals and at bedtime and will increase the long-acting this patient's blood sugars have been elevated and is now being initiated on IV steroids. Potassium mildly elevated at 4.8 and will follow-up with repeat labs recommend low potassium diet. Sodium is improved at 135 today. Patient continues to be bronchospastic and wheezy and maintained on 4 liters currently and normally wears 2 L in the outpatient setting. Recommend wean FiO2 as tolerated. 03/01/2022 Patient is seen in follow-up this morning reports her breathing is somewhat improved although not back to her baseline. Patient continues with a congested cough and sputum production with infectious disease following. Patient is maintained on IV steroids along with breathing treatments and sputum culture pending at this time. Patient is afebrile denies chest pain or palpitations. Patient feels generalized weakness and fatigue. Patient reports her intake is improved slightly and would recommend monitoring Accu-Cheks closely before meals and at bedtime and continue with current regimen. Will follow-up with repeat labs and continue to encourage increased activity as tolerated. Review of Systems Constitutional: Reports fatigue, no reports of chills/sweats Cardio vascular: denied any chest pain, palpitations Gastrointestinal: denied any vomiting, diarrhea. Has some nausea. Pulmonary: Reports shortness of breath and weak cough with phlegm production Neurologic denied any new focal deficits Active Medications Acetaminophen (Acetaminophen Tab 325 Mg Tab) 650 mg PO Q4HR PRN PRN Reason: Mild Pain or Fever > 100.5 Last Admin: 03/01/22 08:05 Dose: 650 mg Albuterol/Ipratropium (Ipratropium-Albuterol 3 Ml Neb) 3 ml INHALATION RT-Q2H PRN PRN Reason: Shortness Of Breath Or Wheezing Last Admin: 02/28/22 00:12 Dose: 3 ml Albuterol/Ipratropium (Ipratropium-Albuterol 3 Ml Neb) 3 ml INHALATION RT-QID [facility] Last Admin: 03/01/22 20:13 Dose: 3 ml Alprazolam (Alprazolam 0.5 Mg Tab) 0.5 mg PO TID PRN PRN Reason: Anxiety Last Admin: 03/01/22 21:23 Dose: 0.5 mg Atorvastatin Calcium (Atorvastatin 20 Mg Tab) 20 mg PO HS [facility] Last Admin: 03/01/22 21:23 Dose: 20 mg Budesonide/Formoterol Fumarate (Symbicort 160-4.5 Mcg Inhaler) 2 puff INHALATION RT-BID [facility] Last Admin: 03/01/22 20:14 Dose: 2 puff Formoterol Fumarate (Formoterol Fumarate 20 Mcg/2 Ml Nebu) 20 mcg INHALATION RT-BID [facility] Last Admin: 03/01/22 20:13 Dose: 20 mcg Heparin Sodium (Porcine) (Heparin Sodium,Porcine/Pf 5,000 Unit/0.5 Ml Syringe) 5,000 unit SQ Q12HR [facility] Last Admin: 03/01/22 21:23 Dose: 5,000 unit Piperacillin Sod/Tazobactam (Sod 3.375 gm/ Sodium Chloride) 100 mls @ 25 mls/hr IVPB Q8HR [facility]; Protocol Last Admin: 03/01/22 23:12 Dose: 25 mls/hr Methylprednisolone Sodium Succinate (Methylprednisolone Sod Succi 40 Mg/Ml 1 Ml Vial) 40 mg IV Q12HR [facility] Last Admin: 03/01/22 21:23 Dose: 40 mg Metoprolol Tartrate (Metoprolol Tartrate 25 Mg Tab) 25 mg PO BID [facility] Last Admin: 03/01/22 21:23 Dose: 25 mg Montelukast Sodium (Montelukast 10 Mg Tab) 10 mg PO HS [facility] Last Admin: 03/01/22 21:23 Dose: 10 mg Naloxone HCl (Naloxone 0.4 Mg/Ml 1 Ml Vial) 0.2 mg IVP Q2M PRN PRN Reason: Opioid Reversal Nitroglycerin (Nitroglycerin Sl Tabs 0.4 Mg Tab) 0.4 mg SUBLINGUAL Q5M PRN PRN Reason: Chest Pain Ondansetron HCl (Ondansetron 4 Mg/2 Ml Vial) 4 mg IVP Q6HR PRN PRN Reason: Nausea And Vomiting Last Admin: 03/02/22 04:08 Dose: 4 mg Pantoprazole Sodium (Pantoprazole 40 Mg/10 Ml Vial) 40 mg IVP DAILY [facility] Last Admin: 03/01/22 09:16 Dose: 40 mg Sertraline HCl (Sertraline 100 Mg Tab) 200 mg PO BID [facility] Last Admin: 03/01/22 21:23 Dose: 200 mg Spironolactone (Spironolactone 25 Mg Tab) 25 mg PO DAILY [facility] Last Admin: 03/01/22 09:16 Dose: 25 mg PHYSICAL EXAMINATION: GENERAL: The patient is alert and oriented x3, reports feeling lethargic and generalized weakness slightly improved from yesterday. Well developed, well nourished. Currently on 3 to 4 L nasal cannula HEENT: Pupils are round and equally reacting to light. EOMI. No scleral icterus. No conjunctival pallor. Normocephalic, atraumatic. No pharyngeal erythema. No thyromegaly. CARDIOVASCULAR: S1 and S2 muffled PULMONARY: Lungs are tight and diminished. some faint basilar crackles noted along with mild expiratory wheezing. ABDOMEN: Soft, nontender, nondistended, normoactive bowel sounds. No palpable organomegaly. MUSCULOSKELETAL: No joint swelling or deformity. EXTREMITIES: No cyanosis, clubbing, or pedal edema. NEUROLOGICAL: Gross neurological examination did not reveal any focal deficits. SKIN: No rashes. Assessment: Acute on chronic hypoxemic respiratory failure secondary to acute RSV infection with left lung base infiltrate and tracheobronchitis, currently on 4l nasal cannula, wears 2L chronically Gram positive bacteremia , most likely contaminant and repeat cultures are negative Mild acute on chronic heart failure, systolic dysfunction History asthma/COPD with acute exacerbation secondary to above Hyponatremia initially hypovolemic with elevated BNP, improving Hypertension currently low Hyperlipidemia, history History of SVT Gastroesophageal reflux disease Anxiety/Depression Former smoker GI Prophylaxis DVT Prophylaxis Plan: Recommend continue supplemental oxygen and wean as tolerated. Patient is currently maintained on 4 L although chronically wears 2 L outpatient. Pulmonary following patient in continues on DuoNeb treatments along with Symbicort and continued IV steroids. Patient's blood sugars have been elevated and will continue sliding scale and increase the long-acting and recommend Accu- Cheks before meals and at bedtime. Recommend consistent carb diet. Encouraged increase activity as tolerated Culture obtained and pending with preliminary results showing gram-negative bacilli and patient being placed on IV Zosyn with infectious disease following awaiting finalized cultures Possible discharge in the next 24-48 hours. Due to multiple complex medical issues, prognosis is guarded. The impression and plan of care has been dictated by Janell Luevano, Nurse Practitioner as directed. Dr. Carrillo MD I have performed a history and examination and MDM of this patient, discussed the same with the dictator, and agree with the dictator's assessment and plan as written ,documented as a scribe. Based on total visit time, I have performed more than 50% of the visit. Objective - Vital Signs Vital signs: Vital Signs Temp 97.5 F L 03/02/22 03:40 Pulse 80 03/02/22 03:40 Resp 17 03/02/22 03:40 BP 125/81 03/02/22 03:40 Pulse Ox 99 03/02/22 03:40 FiO2 Intake & Output 03/01/22 03/01/22 03/02/22 06:59 18:59 06:59 Intake Total 118 Output Total 900 1100 Balance -900 982 Intake: Oral 118 Output: Urine 900 1100 Other: Voiding Method Bedside Commode Bedside Commode # Voids 1 - Labs CBC & Chem 7: 03/01/22 05:37 03/01/22 05:37 Labs: Abnormal Lab Results - Last 24 Hours (Table) 03/01/22 03/01/22 Range/Units 05:37 05:37 Hgb 11.7 L (12.0-15.0) g/dL Hct 36.3 L (37.2-46.3) % RDW 15.2 H (11.5-14.5) % Lymphocytes # 0.89 L (0.90-5.00) X 10*3/uL Eosinophils # 0 L (0.04-0.35) X 10*3/uL Chloride 93 L (96-109) mmol/L Carbon Dioxide 32.1 H (20.0-27.5) mmol/L Anion Gap 9.90 L (10.00-18.00) mmol/L Creatinine 0.5 L (0.6-1.5) mg/dL BUN/Creatinine Ratio 25.40 H (12.00-20.00) Ratio Glucose 127 H (70-110) mg/dL Microbiology - Last 24 Hours (Table) 02/28/22 12:10 Gram Stain - Preliminary Sputum Sputum Culture - Preliminary Gram Neg Bacilli 02/26/22 05:34 Blood Culture - Preliminary Blood No Growth after 72 hours 02/25/22 03:00 Blood Culture - Preliminary Blood No Growth after 96 hours
[2022-03-02] MEDS: ACETAMINOPHEN TAB 325 MG TAB PO PRN ×2 (08:06→20:27)
[2022-03-02] MEDS: ALPRAZolam 0.5 MG TAB PO PRN ×3 (08:07→20:27)
--- NOTE | 2022-03-02 08:30 | P.PN ---
Subjective Progress Note Date: 03/01/22 Principal diagnosis: Positive blood culture and RSV positive Patient is 77-year-old female with a past medical history significant for asthma/COPD GERD hypertension hyperlipidemia anxiety depression former smoker and is currently on her 2 L nasal cannula presenting to the ER for evaluation of increasing shortness of breath symptom has been going on for few days before presentation to the hospital , patient had been diagnosed with a COPD exacerbation this tested positive for RSV and did have a positive blood culture subsequently finalized as staph epi. On today's evaluation that is 03/01/2022, the patient continues to be afebrile, the patient is accompanied by shortness of breath and a cough bringing up some dark sputum and hemoptysis no chest pain no nausea no vomiting no abdominal pain no diarrhea Objective - Vital Signs Vital signs: Vital Signs Temp 97.5 F L 03/01/22 09:14 Pulse 77 03/01/22 12:34 Resp 18 03/01/22 09:14 BP 119/72 03/01/22 09:14 Pulse Ox 95 03/01/22 11:15 FiO2 Intake & Output 02/28/22 03/01/22 03/01/22 18:59 06:59 18:59 Intake Total 340 Output Total 2150 900 Balance -1810 -900 Intake: Oral 340 Output: Urine 2150 900 Other: Voiding Method Bedside Commode - Exam GENERAL DESCRIPTION: An elderly female lying in bed in no distress RESPIRATORY SYSTEM: Unlabored breathing , coarse breath sounds bilaterally HEART: S1 S2 regular rate and rhythm , ABDOMEN: Soft , no tenderness EXTREMITIES: No edema feet - Labs CBC & Chem 7: 03/01/22 05:37 03/01/22 05:37 Labs: Abnormal Lab Results - Last 24 Hours (Table) 03/01/22 03/01/22 Range/Units 05:37 05:37 Hgb 11.7 L (12.0-15.0) g/dL Hct 36.3 L (37.2-46.3) % RDW 15.2 H (11.5-14.5) % Lymphocytes # 0.89 L (0.90-5.00) X 10*3/uL Eosinophils # 0 L (0.04-0.35) X 10*3/uL Chloride 93 L (96-109) mmol/L Carbon Dioxide 32.1 H (20.0-27.5) mmol/L Anion Gap 9.90 L (10.00-18.00) mmol/L Creatinine 0.5 L (0.6-1.5) mg/dL BUN/Creatinine Ratio 25.40 H (12.00-20.00) Ratio Glucose 127 H (70-110) mg/dL Microbiology - Last 24 Hours (Table) 02/28/22 12:10 Gram Stain - Preliminary Sputum Sputum Culture - Preliminary Gram Neg Bacilli 02/26/22 05:34 Blood Culture - Preliminary Blood No Growth after 72 hours 02/25/22 03:00 Blood Culture - Preliminary Blood No Growth after 96 hours 02/25/22 03:15 Blood Culture Gram Stain - Final Blood Blood Culture - Final Coagulase Negative Staph Assessment and Plan (1) Positive blood culture Current Visit: Yes Status: Acute Code(s): R78.81 - BACTEREMIA SNOMED Code(s): 771089851 (2) RSV infection Current Visit: Yes Status: Acute Code(s): B33.8 - OTHER SPECIFIED VIRAL DISEASES SNOMED Code(s): 59659863 Plan: 1patient presented to hospital with increasing shortness of breath which is mor e likely to her COPD exacerbation possibly exacerbated by RSV clinically not behaving as secondary bacterial pneumonia as the patient did have a normal procalcitonin chest x-ray did not show any consolidation suspicious for bacterial pneumonia. 2positive blood culture with gram-positive cocci which has been finalized as staph epi and possible skin contamination , no need for vancomycin 3treatment of RSV is mostly supportive. 4-patient with possible purulent tracheobronchitis causing COPD exacerbation, sputum is growing gram-negative we will continue a short course of Zosyn and monitor clinical course closely Time with Patient: Less than 30
[2022-03-02] MEDS: FORMOTEROL FUMARATE 20 MCG/2 ML NEBU INHALATION SCH ×2 (08:43→19:48)
[2022-03-02] MEDS: SYMBICORT 160-4.5 MCG INHALER INHALATION SCH ×2 (08:43→19:48)
[2022-03-02] MEDS: IPRATROPIUM-ALBUTEROL 3 ML NEB INHALATION SCH ×4 (08:43→19:45)
[2022-03-02] MEDS: PIPERACILLIN-TAZOBACTAM 3.375 GM in SODIUM CHLORIDE 0.9% 100 ML IVPB SCH (09:45)
[2022-03-02] MEDS: HEPARIN SODIUM,PORCINE/PF 5,000 UNIT/0.5 ML SYRINGE SQ SCH ×2 (09:45→20:27)
[2022-03-02] MEDS: SPIRONOLACTONE 25 MG TAB PO SCH (09:46)
[2022-03-02] MEDS: PANTOPRAZOLE 40 MG/10 ML VIAL IVP SCH (09:46)
[2022-03-02] MEDS: METOPROLOL TARTRATE 25 MG TAB PO SCH ×2 (09:46→20:27)
[2022-03-02] MEDS: methylPREDNISolone SOD SUCCI 40 MG/ML 1 ML VIAL IV SCH ×2 (09:46→20:27)
[2022-03-02] MEDS: SERTRALINE 100 MG TAB PO SCH ×2 (09:46→20:26)
[2022-03-02 10:01] LABS: African American GFR (CKD) >90 (>60 ml/min/1.73 sqM); Anion Gap 6 mmol/L; Blood Urea Nitrogen 13 mg/dL (7-17); Carbon Dioxide 33 mmol/L (22-30); Chloride 94 mmol/L (98-107); Glucose 88 mg/dL (74-99); Non-African American GFR(CKD) >90 (>60 ml/min/1.73 sqM); Potassium 4.2 mmol/L (3.5-5.1); Sodium 133 mmol/L (137-145)
--- NOTE | 2022-03-02 13:05 | P.PN ---
Subjective Progress Note Date: 03/02/22 Principal diagnosis: Positive blood culture and RSV positive Patient is 77-year-old female with a past medical history significant for asthma/COPD GERD hypertension hyperlipidemia anxiety depression former smoker and is currently on her 2 L nasal cannula presenting to the ER for evaluation of increasing shortness of breath symptom has been going on for few days before presentation to the hospital , patient had been diagnosed with a COPD exacerbation this tested positive for RSV and did have a positive blood culture subsequently finalized as staph epi. On today's evaluation that is 03/02/2022, the patient remains to be afebrile, the patient is breathing slightly comfortable today continued to combining of cough with a sputum production no hemoptysis no chest pain no abdominal pain or diarrhea did have some nausea but no vomiting Objective - Vital Signs Vital signs: Vital Signs Temp 98.3 F 03/02/22 07:36 Pulse 72 03/02/22 12:45 Resp 16 03/02/22 07:36 BP 148/89 03/02/22 07:36 Pulse Ox 100 03/02/22 12:46 FiO2 Intake & Output 03/01/22 03/02/22 03/02/22 18:59 06:59 18:59 Intake Total 118 Output Total 1100 500 Balance -982 -500 Intake: Oral 118 Output: Urine 1100 500 Other: Voiding Method Bedside Commode # Voids 1 - Exam GENERAL DESCRIPTION: An elderly female lying in bed in no distress RESPIRATORY SYSTEM: Unlabored breathing , coarse breath sounds bilaterally HEART: S1 S2 regular rate and rhythm , ABDOMEN: Soft , no tenderness EXTREMITIES: No edema feet - Labs CBC & Chem 7: 03/01/22 05:37 03/02/22 09:04 Labs: Abnormal Lab Results - Last 24 Hours (Table) 03/02/22 Range/Units 09:04 Sodium 133 L (137-145) mmol/L Chloride 94 L (98-107) mmol/L Carbon Dioxide 33 H (22-30) mmol/L Creatinine 0.44 L (0.52-1.04) mg/dL Microbiology - Last 24 Hours (Table) 02/28/22 12:10 Gram Stain - Final Sputum Sputum Culture - Final Pseudomonas aeruginosa 02/26/22 05:34 Blood Culture - Preliminary Blood No Growth after 96 hours 02/25/22 03:00 Blood Culture - Preliminary Blood No Growth after 120 hours Assessment and Plan (1) Positive blood culture Current Visit: Yes Status: Acute Code(s): R78.81 - BACTEREMIA SNOMED Code(s): 460814521 (2) RSV infection Current Visit: Yes Status: Acute Code(s): B33.8 - OTHER SPECIFIED VIRAL DISEASES SNOMED Code(s): 10304571 Plan: 1patient presented to hospital with increasing shortness of breath which is more likely to her COPD exacerbation possibly exacerbated by RSV clinically not behaving as secondary bacterial pneumonia as the patient did have a normal procalcitonin chest x-ray did not show any consolidation suspicious for bacterial pneumonia. 2positive blood culture with gram-positive cocci which has been finalized as staph epi and possible skin contamination , no need for vancomycin 3treatment of RSV is mostly supportive. 4-patient with possible purulent tracheobronchitis causing COPD exacerbation, sputum grow pseudomonas aeruginosa with intermediate sensitivity to Zosyn however is sensitive to Cipro we will discontinue Zosyn and start the patient on oral Cipro and monitor clinical course closely Time with Patient: Less than 30
[2022-03-02 14:19] LABS: Basophils # (A) 0.01 X 10*3/uL (0.00-0.10); Basophils % (A) 0.1 %; Eosinophils # (A) 0 X 10*3/uL (0.04-0.35); Eosinophils % (A) 0 %; HCT 36.8 % (37.2-46.3); HGB 11.7 g/dL (12.0-15.0); Immature Grans, Automated 0.3 %; Lymphocytes # (A) 1.75 X 10*3/uL (0.90-5.00); Lymphocytes % (A) 25.3 %; MCHC 31.8 g/dL (32.0-37.0); Mean Platelet Volume 10.3 fL (9.5-12.2); Monocytes # (A) 0.83 X 10*3/uL (0.20-1.00); NRBC Per 100 WBC 0 /100 WBCS (0.0-0.0); Neutrophils % (A) 62.3 %; Platelet Count 297 X 10*3/uL (140-440); RBC 4.33 X 10*6/uL (4.10-5.20); RDW 15.1 % (11.5-14.5); WBC 6.91 X 10*3/uL (4.50-10.00)
[2022-03-02] MEDS: CIPROFLOXACIN HCL 500 MG TAB PO SCH ×2 (14:50→20:26)
--- NOTE | 2022-03-02 15:27 | P.PN ---
Subjective Progress Note Date: 03/02/22 This is a 77 year old female with history of recurrent chest pain, asthma, COPD, GERD, hypertension, hyperlipidemia, anxiety/depression. Patient is a former smoker and wears 2L of oxygen chronically. Presents to the emergency center by EMS with complaints of progressive shortness of breath, as well as cough with pleuritic chest pain. Denies fever, denies chills. Reports an episode of diarrhea at home with decreased appetite, reports nausea. Denies emesis. She is admitted to the hospital and found to be positive for RSV by PCR testing. Currently receiving IV fluids at 75 mls/hour, IV solumedrol and has been started on empiric antibiotic coverage with azithromycin PO. Patient had chest xray on admission showing new minimal 2cm infiltrate left lateral lung base likely COPD. No heart failure. Currently she is afebrile, heart rate is in the 90s normal sinus rhythm, blood pressure on the lower side at 100/67, which will recommend to hold lisinopril. Sodium was found to be 128 on admission and remains at 128 after hydration. Recent echocardiogram from Dec 2021 shows an EF of 35 to 40%. Will recommend to stop IV fluids at this time. Patient reports drinking plenty of water at home but has had poor oral intake. She is monitored in observation further recommendations by pulmonary services. 02/26/2022 Patient is evaluated today resting in bed. Reports decreased appetite, sweaty/chills overnight. Has some nausea, denies emesis or diarrhea today. Continues to feel short of breath with weak cough unable to expectorate much. Blood culture preliminary showing gram positive cocci and patient was started on IV vancomycin with infectious disease consultation. Sodium up to 129, received a dose of IV lasix yesterday. proBNP 1470. Procalcitonin level negative at 0.07. Patient will receive another dose of lasix today IV with intake and output monitoring. Check bladder scan. 02/28/2022 Patient is seen and evaluated in follow-up today appears to be lethargic and reports she is not feeling well. Patient is being followed by infectious disease along with pulmonary maintained on DuoNeb treatments along with now initiating IV steroids. Blood cultures positive for coag negative staph most likely contaminant and antibiotics have been discontinued. Patient is afebrile and pro-calcitonin was low although patient was positive for RSV. Per infectious disease mostly supportive care for this. Patient encouraged to increase activity as tolerated and also encouraged oral intake. Continue with consistent carb diet and recommend monitoring Accu-Cheks before meals and at bedtime and will increase the long-acting this patient's blood sugars have been elevated and is now being initiated on IV steroids. Potassium mildly elevated at 4.8 and will follow-up with repeat labs recommend low potassium diet. Sodium is improved at 135 today. Patient continues to be bronchospastic and wheezy and maintained on 4 liters currently and normally wears 2 L in the outpatient setting. Recommend wean FiO2 as tolerated. 03/01/2022 Patient is seen in follow-up this morning reports her breathing is somewhat improved although not back to her baseline. Patient continues with a congested cough and sputum production with infectious disease following. Patient is maintained on IV steroids along with breathing treatments and sputum culture pending at this time. Patient is afebrile denies chest pain or palpitations. Patient feels generalized weakness and fatigue. Patient reports her intake is improved slightly and would recommend monitoring Accu-Cheks closely before meals and at bedtime and continue with current regimen. Will follow-up with repeat labs and continue to encourage increased activity as tolerated. 03/02/2022 Patient is seen and evaluated in follow-up today continue to report dyspnea with cough and congestion. Patient being followed by pulmonary maintained on IV antibiotics along with DuoNeb's and IV steroids. Patient's preliminary culture showing gram-negative bacilli although finalized showing pseudomonas aeruginosa and patient will continue on current regimen and transition to oral Cipro per ID recommendations on discharge. Encouraged increase activity as tolerated and encourage oral intake and will discuss with pulmonary about possible discharge in 24 hours. Patient is afebrile denies chest pain or palpitations. No reports of nausea or vomiting noted and patient is tolerating diet. Repeat pro- calcitonin 0.03 and CRP is 0.50. Review of Systems Constitutional: Reports fatigue, no reports of chills/sweats Cardio vascular: denied any chest pain, palpitations Gastrointestinal: denied any vomiting, diarrhea. Has some nausea. Pulmonary: Reports shortness of breath and weak cough with phlegm production Neurologic denied any new focal deficits PHYSICAL EXAMINATION: GENERAL: The patient is alert and oriented x3, reports feeling lethargic and generalized weakness slightly improved from yesterday. Well developed, well nourished. Currently on 3 to 4 L nasal cannula HEENT: Pupils are round and equally reacting to light. EOMI. No scleral icterus. No conjunctival pallor. Normocephalic, atraumatic. No pharyngeal erythema. No thyromegaly. CARDIOVASCULAR: S1 and S2 muffled PULMONARY: Lungs are tight and diminished. some faint basilar crackles with coarse rhonchi noted along with mild expiratory wheezing. ABDOMEN: Soft, nontender, nondistended, normoactive bowel sounds. No palpable organomegaly. MUSCULOSKELETAL: No joint swelling or deformity. EXTREMITIES: No cyanosis, clubbing, or pedal edema. NEUROLOGICAL: Gross neurological examination did not reveal any focal deficits. SKIN: No rashes. Assessment: Acute on chronic hypoxemic respiratory failure secondary to acute RSV infection with left lung base infiltrate and tracheobronchitis, currently on 4l nasal cannula, wears 2L chronically Gram positive bacteremia , most likely contaminant and repeat cultures are negative Sputum culture showing pseudomonas aeruginosa with some resistance Mild acute on chronic heart failure, systolic dysfunction History asthma/COPD with acute exacerbation secondary to above Hyponatremia initially hypovolemic with elevated BNP, improving Hypertension currently low Hyperlipidemia, history History of SVT Gastroesophageal reflux disease Anxiety/Depression Former smoker GI Prophylaxis DVT Prophylaxis Plan: Recommend continue supplemental oxygen and wean as tolerated. Patient is currently maintained on 3 L although chronically wears 2 L outpatient. Patient's oxygen saturation is 100% and recommend wean as tolerated. Pulmonary following patient in continues on DuoNeb treatments along with Symbicort and continued IV steroids. Patient's blood sugars have been elevated and will continue sliding scale and long-acting and recommend Accu-Cheks before meals and at bedtime. Recommend consistent carb diet. Encouraged increase activity as tolerated Sputum Culture finalized with pseudomona aeruginosa and will continue on IV Zosyn with infectious disease following, plan to transition to oral Cipro and discharge Possible discharge in the next 24-48 hours. Due to multiple complex medical issues, prognosis is guarded. The impression and plan of care has been dictated by Janell Luevano, Nurse Practitioner as directed. Dr. Carrillo MD I have performed a history and examination and MDM of this patient, discussed the same with the dictator, and agree with the dictator's assessment and plan as written ,documented as a scribe. Based on total visit time, I have performed more than 50% of the visit. Objective - Vital Signs Vital signs: Vital Signs Temp 98.3 F 03/02/22 07:36 Pulse 72 03/02/22 09:02 Resp 16 03/02/22 07:36 BP 148/89 03/02/22 07:36 Pulse Ox 98 03/02/22 08:43 FiO2 Intake & Output 03/01/22 03/02/22 03/02/22 18:59 06:59 18:59 Intake Total 118 Output Total 1100 500 Balance -982 -500 Intake: Oral 118 Output: Urine 1100 500 Other: Voiding Method Bedside Commode # Voids 1 - Labs CBC & Chem 7: 03/02/22 09:00 03/02/22 09:04 Labs: Microbiology - Last 24 Hours (Table) 02/25/22 03:00 Blood Culture - Preliminary Blood No Growth after 120 hours 02/28/22 12:10 Gram Stain - Preliminary Sputum Sputum Culture - Preliminary Gram Neg Bacilli 02/26/22 05:34 Blood Culture - Preliminary Blood No Growth after 72 hours
[2022-03-02 20:03] LABS: Glucose,Whole Blood 92 mg/dL (70-110)
[2022-03-02] MEDS: ATORVASTATIN 20 MG TAB PO SCH (20:27)
[2022-03-02] MEDS: MONTELUKAST 10 MG TAB PO SCH (20:27)
[2022-03-03] MEDS: ONDANSETRON 4 MG/2 ML VIAL IVP PRN ×2 (02:18→09:15)
[2022-03-03] MEDS: SYMBICORT 160-4.5 MCG INHALER INHALATION SCH ×2 (07:16→19:45)
[2022-03-03] MEDS: IPRATROPIUM-ALBUTEROL 3 ML NEB INHALATION SCH ×4 (07:16→19:45)
[2022-03-03] MEDS: FORMOTEROL FUMARATE 20 MCG/2 ML NEBU INHALATION SCH ×2 (07:16→19:45)
[2022-03-03] MEDS: PANTOPRAZOLE 40 MG/10 ML VIAL IVP SCH (09:14)
[2022-03-03] MEDS: ALPRAZolam 0.5 MG TAB PO PRN ×3 (09:15→20:45)
[2022-03-03] MEDS: HEPARIN SODIUM,PORCINE/PF 5,000 UNIT/0.5 ML SYRINGE SQ SCH ×2 (09:15→20:42)
[2022-03-03] MEDS: methylPREDNISolone SOD SUCCI 40 MG/ML 1 ML VIAL IV SCH ×2 (09:15→20:41)
[2022-03-03] MEDS: SPIRONOLACTONE 25 MG TAB PO SCH (09:15)
[2022-03-03] MEDS: CIPROFLOXACIN HCL 500 MG TAB PO SCH ×2 (09:15→20:42)
[2022-03-03] MEDS: SERTRALINE 100 MG TAB PO SCH ×2 (09:16→20:42)
[2022-03-03] MEDS: METOPROLOL TARTRATE 25 MG TAB PO SCH ×2 (09:16→20:42)
[2022-03-03] MEDS: ACETAMINOPHEN TAB 325 MG TAB PO PRN (09:23)
--- NOTE | 2022-03-03 13:03 | P.PN ---
Subjective Progress Note Date: 03/03/22 Principal diagnosis: Positive blood culture and RSV positive Patient is 77-year-old female with a past medical history significant for asthma/COPD GERD hypertension hyperlipidemia anxiety depression former smoker and is currently on her 2 L nasal cannula presenting to the ER for evaluation of increasing shortness of breath symptom has been going on for few days before presentation to the hospital , patient had been diagnosed with a COPD exacerbation this tested positive for RSV and did have a positive blood culture subsequently finalized as staph epi. On today's evaluation that is 03/03/2022, the patient continues to be afebrile, the patient is still vomiting or shortness of breath and cough however not bringing up any sputum maybe minimal improvement some nausea but no vomiting no abdominal pain or diarrhea Objective - Vital Signs Vital signs: Vital Signs Temp 98.4 F 03/03/22 08:20 Pulse 80 03/03/22 11:17 Resp 18 03/03/22 08:20 BP 142/69 03/03/22 08:20 Pulse Ox 95 03/03/22 08:20 FiO2 Intake & Output 03/02/22 03/03/22 03/03/22 18:59 06:59 18:59 Intake Total 118 118 Output Total 800 Balance 118 -800 118 Intake: Oral 118 118 Output: Urine 800 Other: Voiding Method Bedside Commode # Voids 3 1 - Exam GENERAL DESCRIPTION: An elderly female lying in bed in no distress RESPIRATORY SYSTEM: Unlabored breathing , decreased intensity of breath sounds no wheeze HEART: S1 S2 regular rate and rhythm , ABDOMEN: Soft , no tenderness EXTREMITIES: No edema feet - Labs CBC & Chem 7: 03/02/22 09:00 03/02/22 09:04 Labs: Abnormal Lab Results - Last 24 Hours (Table) 03/02/22 Range/Units 09:00 Hgb 11.7 L (12.0-15.0) g/dL Hct 36.8 L (37.2-46.3) % MCHC 31.8 L (32.0-37.0) g/dL RDW 15.1 H (11.5-14.5) % Eosinophils # 0 L (0.04-0.35) X 10*3/uL Microbiology - Last 24 Hours (Table) 02/26/22 05:34 Blood Culture - Preliminary Blood No Growth after 120 hours 02/25/22 03:00 Blood Culture - Final Blood No Growth after 144 hours 02/28/22 12:10 Gram Stain - Final Sputum Sputum Culture - Final Pseudomonas aeruginosa Assessment and Plan (1) Positive blood culture Current Visit: Yes Status: Acute Code(s): R78.81 - BACTEREMIA SNOMED Code(s): 430975686 (2) RSV infection Current Visit: Yes Status: Acute Code(s): B33.8 - OTHER SPECIFIED VIRAL DISEASES SNOMED Code(s): 05375987 Plan: 1patient presented to hospital with increasing shortness of breath which is more likely to her COPD exacerbation possibly exacerbated by RSV clinically not behaving as secondary bacterial pneumonia as the patient did have a normal procalcitonin chest x-ray did not show any consolidation suspicious for bacterial pneumonia. 2positive blood culture with gram-positive cocci which has been finalized as staph epi and possible skin contamination , no need for vancomycin 3treatment of RSV is mostly supportive. 4-patient with possible purulent tracheobronchitis causing COPD exacerbation, sputum grow pseudomonas aeruginosa, for the patient is currently being treated with oral Cipro on the basis of sensitivities to continue and monitor clinical course closely Time with Patient: Less than 30
[2022-03-03 15:08] VITALS: BMI 23.9
[2022-03-03] MEDS ORDERED: SENNOSIDES 8.6 MG TAB PO PRN (18:03)
--- NOTE | 2022-03-03 19:17 | P.PN ---
Subjective Progress Note Date: 03/03/22 This is a 77 year old female with history of recurrent chest pain, asthma, COPD, GERD, hypertension, hyperlipidemia, anxiety/depression. Patient is a former smoker and wears 2L of oxygen chronically. Presents to the emergency center by EMS with complaints of progressive shortness of breath, as well as cough with pleuritic chest pain. Denies fever, denies chills. Reports an episode of diarrhea at home with decreased appetite, reports nausea. Denies emesis. She is admitted to the hospital and found to be positive for RSV by PCR testing. Currently receiving IV fluids at 75 mls/hour, IV solumedrol and has been started on empiric antibiotic coverage with azithromycin PO. Patient had chest xray on admission showing new minimal 2cm infiltrate left lateral lung base likely COPD. No heart failure. Currently she is afebrile, heart rate is in the 90s normal sinus rhythm, blood pressure on the lower side at 100/67, which will recommend to hold lisinopril. Sodium was found to be 128 on admission and remains at 128 after hydration. Recent echocardiogram from Dec 2021 shows an EF of 35 to 40%. Will recommend to stop IV fluids at this time. Patient reports drinking plenty of water at home but has had poor oral intake. She is monitored in observation further recommendations by pulmonary services. 02/26/2022 Patient is evaluated today resting in bed. Reports decreased appetite, sweaty/chills overnight. Has some nausea, denies emesis or diarrhea today. Continues to feel short of breath with weak cough unable to expectorate much. Blood culture preliminary showing gram positive cocci and patient was started on IV vancomycin with infectious disease consultation. Sodium up to 129, received a dose of IV lasix yesterday. proBNP 1470. Procalcitonin level negative at 0.07. Patient will receive another dose of lasix today IV with intake and output monitoring. Check bladder scan. 02/28/2022 Patient is seen and evaluated in follow-up today appears to be lethargic and reports she is not feeling well. Patient is being followed by infectious disease along with pulmonary maintained on DuoNeb treatments along with now initiating IV steroids. Blood cultures positive for coag negative staph most likely contaminant and antibiotics have been discontinued. Patient is afebrile and pro-calcitonin was low although patient was positive for RSV. Per infectious disease mostly supportive care for this. Patient encouraged to increase activity as tolerated and also encouraged oral intake. Continue with consistent carb diet and recommend monitoring Accu-Cheks before meals and at bedtime and will increase the long-acting this patient's blood sugars have been elevated and is now being initiated on IV steroids. Potassium mildly elevated at 4.8 and will follow-up with repeat labs recommend low potassium diet. Sodium is improved at 135 today. Patient continues to be bronchospastic and wheezy and maintained on 4 liters currently and normally wears 2 L in the outpatient setting. Recommend wean FiO2 as tolerated. 03/01/2022 Patient is seen in follow-up this morning reports her breathing is somewhat improved although not back to her baseline. Patient continues with a congested cough and sputum production with infectious disease following. Patient is maintained on IV steroids along with breathing treatments and sputum culture pending at this time. Patient is afebrile denies chest pain or palpitations. Patient feels generalized weakness and fatigue. Patient reports her intake is improved slightly and would recommend monitoring Accu-Cheks closely before meals and at bedtime and continue with current regimen. Will follow-up with repeat labs and continue to encourage increased activity as tolerated. 03/02/2022 Patient is seen and evaluated in follow-up today continue to report dyspnea with cough and congestion. Patient being followed by pulmonary maintained on IV antibiotics along with DuoNeb's and IV steroids. Patient's preliminary culture showing gram-negative bacilli although finalized showing pseudomonas aeruginosa and patient will continue on current regimen and transition to oral Cipro per ID recommendations on discharge. Encouraged increase activity as tolerated and encourage oral intake and will discuss with pulmonary about possible discharge in 24 hours. Patient is afebrile denies chest pain or palpitations. No reports of nausea or vomiting noted and patient is tolerating diet. Repeat pro- calcitonin 0.03 and CRP is 0.50. 03/03/2022 Patient seen in follow-up continues to be short of breath and not feeling well. Patient is positive for RSV and Pseudomonas in the sputum and patient is maintained on oral Cipro with infectious disease following. Apparently pulmonary was consulted although on leave and patient not being followed by pulmonary. Patient chronically wears oxygen in the outpatient setting and has had slow improvement back to her baseline. Patient encouraged to increase activity as tolerated and continued on IV steroids at a decreased rate and breath sounds are diminished although improvement in wheezing noted. Patient wi ll continue on oral Cipro per ID recommendations on discharge. Will continue prednisone taper as well once discharged. Patient encouraged to ambulate more frequently and sit up in the chair is doing meals. Patient is afebrile with no reports of nausea or vomiting noted. Review of Systems Constitutional: Reports fatigue, no reports of chills/sweats Cardio vascular: denied any chest pain, palpitations Gastrointestinal: denied any vomiting, diarrhea. Has some nausea. Pulmonary: Reports shortness of breath and weak cough with phlegm production Neurologic denied any new focal deficits, reports generally weak PHYSICAL EXAMINATION: GENERAL: The patient is alert and oriented x3, reports feeling lethargic and generalized weakness slightly improved from yesterday. Well developed, well nourished. Currently on 3 to 4 L nasal cannula HEENT: Pupils are round and equally reacting to light. EOMI. No scleral icterus. No conjunctival pallor. Normocephalic, atraumatic. No pharyngeal erythema. No thyromegaly. CARDIOVASCULAR: S1 and S2 muffled PULMONARY: Lungs are tight and diminished. with coarse rhonchi noted along with faint expiratory wheezing with improvement. ABDOMEN: Soft, nontender, nondistended, normoactive bowel sounds. No palpable organomegaly. MUSCULOSKELETAL: No joint swelling or deformity. EXTREMITIES: No cyanosis, clubbing, or pedal edema. NEUROLOGICAL: Gross neurological examination did not reveal any focal deficits. SKIN: No rashes. Assessment: Acute on chronic hypoxemic respiratory failure secondary to acute RSV infection with left lung base infiltrate and tracheobronchitis, currently on 4l nasal cannula, wears 2L chronically Gram positive bacteremia , most likely contaminant and repeat cultures are negative Sputum culture showing pseudomonas aeruginosa with some resistance Mild acute on chronic heart failure, systolic dysfunction History asthma/COPD with acute exacerbation secondary to above Hyponatremia initially hypovolemic with elevated BNP, improving Hypertension currently low Hyperlipidemia, history History of SVT Gastroesophageal reflux disease Anxiety/Depression Former smoker GI Prophylaxis DVT Prophylaxis Plan: Recommend continue supplemental oxygen and wean as tolerated. Patient is currently maintained on 3 L although chronically wears 2 L outpatient. Patient continues on DuoNeb treatments along with Symbicort and continued IV steroids. Decreased the dose and recommend prednisone taper on discharge Patient's blood sugars have been elevated and will continue sliding scale and long-acting and recommend Accu-Cheks before meals and at bedtime. Recommend consistent carb diet. Encouraged increase activity as tolerated. Encourage the patient is sitting up in the chair with all meals and ambulate more frequently Sputum Culture finalized with pseudomona aeruginosa and has transitioned to oral Cipro per ID recommendations and will continue on discharge Possible discharge in the next 24-48 hours. Due to multiple complex medical issues, prognosis is guarded. The impression and plan of care has been dictated by Janell Luevano, Nurse Practitioner as directed. Dr. Violet MD I have performed a history and examination and MDM of this patient, discussed the same with the dictator, and agree with the dictator's assessment and plan as written ,documented as a scribe. Based on total visit time, I have performed more than 50% of the visit. Objective - Vital Signs Vital signs: Vital Signs Temp 98.4 F 03/03/22 15:00 Pulse 74 03/03/22 15:26 Resp 16 03/03/22 15:00 BP 128/79 03/03/22 15:00 Pulse Ox 93 L 03/03/22 15:00 FiO2 Intake & Output 03/03/22 03/03/22 03/04/22 06:59 18:59 06:59 Intake Total 598 Output Total 800 Balance -800 598 Weight 61.235 kg Intake: Oral 598 Output: Urine 800 Other: Voiding Method Bedside Commode # Voids 1 4 - Labs CBC & Chem 7: 03/02/22 09:00 03/02/22 09:04 Labs: Microbiology - Last 24 Hours (Table) 02/26/22 05:34 Blood Culture - Preliminary Blood No Growth after 120 hours 02/25/22 03:00 Blood Culture - Final Blood No Growth after 144 hours 02/28/22 12:10 Gram Stain - Final Sputum Sputum Culture - Final Pseudomonas aeruginosa
[2022-03-03] MEDS: MONTELUKAST 10 MG TAB PO SCH (20:42)
[2022-03-03] MEDS: ATORVASTATIN 20 MG TAB PO SCH (20:42)
[2022-03-04] MEDS: methylPREDNISolone SOD SUCCI 40 MG/ML 1 ML VIAL IV SCH ×2 (08:37→22:21)
[2022-03-04] MEDS: PANTOPRAZOLE 40 MG/10 ML VIAL IVP SCH (08:37)
[2022-03-04] MEDS: SPIRONOLACTONE 25 MG TAB PO SCH (08:37)
[2022-03-04] MEDS: IPRATROPIUM-ALBUTEROL 3 ML NEB INHALATION SCH ×4 (08:37→20:07)
[2022-03-04] MEDS: ALPRAZolam 0.5 MG TAB PO PRN ×4 (08:37→22:20)
[2022-03-04] MEDS: ONDANSETRON 4 MG/2 ML VIAL IVP PRN (08:37)
[2022-03-04] MEDS: SYMBICORT 160-4.5 MCG INHALER INHALATION SCH ×2 (08:37→20:07)
[2022-03-04] MEDS: HEPARIN SODIUM,PORCINE/PF 5,000 UNIT/0.5 ML SYRINGE SQ SCH ×2 (08:37→22:21)
[2022-03-04] MEDS: SERTRALINE 100 MG TAB PO SCH ×2 (08:38→22:20)
[2022-03-04] MEDS: METOPROLOL TARTRATE 25 MG TAB PO SCH ×2 (08:38→22:20)
[2022-03-04] MEDS: FORMOTEROL FUMARATE 20 MCG/2 ML NEBU INHALATION SCH ×2 (08:38→20:07)
[2022-03-04] MEDS: CIPROFLOXACIN HCL 500 MG TAB PO SCH ×2 (08:38→22:21)
--- NOTE | 2022-03-04 09:37 | XR ---
EXAMINATION TYPE: XR chest 1V portable DATE OF EXAM: 03/04/2022 CLINICAL HISTORY: Difficulty breathing progress study. TECHNIQUE: Single AP portable upright view of the chest is obtained. COMPARISON: Chest x-ray from 3 days earlier FINDINGS: Background chronic emphysematous change is redemonstrated. There is no suspicious focal air space opacity, pleural effusion, or pneumothorax seen. The cardiac silhouette size is stable and within normal limits. The osseous structures remain demineralized. IMPRESSION: Chronic emphysematous change without acute pulmonary process.
--- NOTE | 2022-03-04 15:17 | P.PN ---
Subjective Progress Note Date: 03/04/22 Principal diagnosis: Positive blood culture and RSV positive Patient is 77-year-old female with a past medical history significant for asthma/COPD GERD hypertension hyperlipidemia anxiety depression former smoker and is currently on her 2 L nasal cannula presenting to the ER for evaluation of increasing shortness of breath symptom has been going on for few days before presentation to the hospital , patient had been diagnosed with a COPD exacerbation this tested positive for RSV and did have a positive blood culture subsequently finalized as staph epi. On today's evaluation that is 03/04/2022, the patient denies any fever or chills, the patient still complaining of some soreness of breath, denies any worsening cough or sputum production nausea but no vomiting no abdominal pain or diarrhea Objective - Vital Signs Vital signs: Vital Signs Temp 97.9 F 03/04/22 07:24 Pulse 80 03/04/22 12:05 Resp 18 03/04/22 08:37 BP 148/74 03/04/22 07:24 Pulse Ox 98 03/04/22 07:24 FiO2 Intake & Output 03/03/22 03/04/22 03/04/22 18:59 06:59 18:59 Intake Total 598 360 Output Total 1300 Balance 598 -1300 360 Weight 61.235 kg Intake: Oral 598 360 Output: Urine 1300 Other: Voiding Method Bedside Commode Bedside Commode # Voids 4 - Exam GENERAL DESCRIPTION: An elderly female lying in bed in no distress RESPIRATORY SYSTEM: Unlabored breathing , decreased intensity of breath sounds no wheeze HEART: S1 S2 regular rate and rhythm , ABDOMEN: Soft , no tenderness EXTREMITIES: No edema feet - Labs CBC & Chem 7: 03/02/22 09:00 03/02/22 09:04 Labs: Microbiology - Last 24 Hours (Table) 02/26/22 05:34 Blood Culture - Final Blood No Growth after 144 hours Assessment and Plan (1) Positive blood culture Current Visit: Yes Status: Acute Code(s): R78.81 - BACTEREMIA SNOMED Code(s): 897437805 (2) RSV infection Current Visit: Yes Status: Acute Code(s): B33.8 - OTHER SPECIFIED VIRAL DISEASES SNOMED Code(s): 58037705 Plan: 1patient presented to hospital with increasing shortness of breath which is more likely to her COPD exacerbation possibly exacerbated by RSV clinically not behaving as secondary bacterial pneumonia as the patient did have a normal procalcitonin chest x-ray did not show any consolidation suspicious for bacterial pneumonia. 2positive blood culture with gram-positive cocci which has been finalized as staph epi and possible skin contamination , no need for vancomycin 3treatment of RSV is mostly supportive. 4-patient with purulent tracheobronchitis causing COPD exacerbation chest x-ray repeated 03/04/2022 did not show any acute changes, sputum grow pseudomonas aeruginosa, for the patient to continue with oral Cipro on the basis of sensitivities to continue and monitor clinical course closely Time with Patient: Less than 30
[2022-03-04] MEDS: ACETAMINOPHEN TAB 325 MG TAB PO PRN (15:18)
[2022-03-04] MEDS: ATORVASTATIN 20 MG TAB PO SCH (22:20)
[2022-03-04] MEDS: MONTELUKAST 10 MG TAB PO SCH (22:21)
[2022-03-05] MEDS: FORMOTEROL FUMARATE 20 MCG/2 ML NEBU INHALATION SCH ×2 (07:54→21:00)
[2022-03-05] MEDS: IPRATROPIUM-ALBUTEROL 3 ML NEB INHALATION SCH ×4 (07:55→21:00)
[2022-03-05] MEDS: SYMBICORT 160-4.5 MCG INHALER INHALATION SCH ×2 (07:55→21:00)
[2022-03-05] MEDS: PANTOPRAZOLE 40 MG/10 ML VIAL IVP SCH (09:57)
[2022-03-05] MEDS: ACETAMINOPHEN TAB 325 MG TAB PO PRN (09:58)
[2022-03-05] MEDS: methylPREDNISolone SOD SUCCI 40 MG/ML 1 ML VIAL IV SCH ×2 (09:58→21:24)
[2022-03-05] MEDS: ALPRAZolam 0.5 MG TAB PO PRN ×3 (09:58→21:31)
[2022-03-05] MEDS: SPIRONOLACTONE 25 MG TAB PO SCH (09:59)
[2022-03-05] MEDS: METOPROLOL TARTRATE 25 MG TAB PO SCH ×2 (09:59→21:24)
[2022-03-05] MEDS: CIPROFLOXACIN HCL 500 MG TAB PO SCH ×2 (09:59→21:24)
[2022-03-05] MEDS: ONDANSETRON 4 MG/2 ML VIAL IVP PRN ×2 (09:59→16:37)
[2022-03-05] MEDS: HEPARIN SODIUM,PORCINE/PF 5,000 UNIT/0.5 ML SYRINGE SQ SCH ×2 (09:59→21:24)
[2022-03-05] MEDS: SERTRALINE 100 MG TAB PO SCH ×2 (09:59→21:25)
[2022-03-05 10:37] LABS: Basophils # (A) 0.02 X 10*3/uL (0.00-0.10); Basophils % (A) 0.3 %; Eosinophils # (A) 0 X 10*3/uL (0.04-0.35); Eosinophils % (A) 0 %; HCT 38.4 % (37.2-46.3); HGB 11.6 g/dL (12.0-15.0); Immature Grans, Automated 2.1 %; Lymphocytes % (A) 15.6 %; MCH 26.5 pg (27.0-32.0); MCHC 30.2 g/dL (32.0-37.0); MCV 87.9 fL (80.0-97.0); Mean Platelet Volume 10.6 fL (9.5-12.2); Monocytes # (A) 0.59 X 10*3/uL (0.20-1.00); Monocytes % (A) 8.4 %; NRBC Per 100 WBC 0 /100 WBCS (0.0-0.0); Neutrophils # (A) 5.19 X 10*3/uL (1.80-7.70); Neutrophils % (A) 73.6 %; Platelet Count 327 X 10*3/uL (140-440); RBC 4.37 X 10*6/uL (4.10-5.20); RDW 15.3 % (11.5-14.5); WBC 7.05 X 10*3/uL (4.50-10.00)
[2022-03-05 10:41] LABS: African American GFR (CKD) 109.7 (60.0-200.0); Anion Gap 12.9 mmol/L (10.00-18.00); BUN/Creat Ratio 23.4 Ratio (12.00-20.00); Blood Urea Nitrogen 11.7 mg/dL (9.0-27.0); Calcium 9.5 mg/dL (8.7-10.3); Carbon Dioxide 25.1 mmol/L (20.0-27.5); Non-African American GFR(CKD) 94.7 (60.0-200.0); Potassium 4.9 mmol/L (3.5-5.5)
[2022-03-05] MEDS: MONTELUKAST 10 MG TAB PO SCH (21:24)
[2022-03-05] MEDS: ATORVASTATIN 20 MG TAB PO SCH (21:24)
--- NOTE | 2022-03-06 02:29 | P.PN ---
Subjective Progress Note Date: 03/04/22 This is a 77 year old female with history of recurrent chest pain, asthma, COPD, GERD, hypertension, hyperlipidemia, anxiety/depression. Patient is a former smoker and wears 2L of oxygen chronically. Presents to the emergency center by EMS with complaints of progressive shortness of breath, as well as cough with pleuritic chest pain. Denies fever, denies chills. Reports an episode of diarrhea at home with decreased appetite, reports nausea. Denies emesis. She is admitted to the hospital and found to be positive for RSV by PCR testing. Currently receiving IV fluids at 75 mls/hour, IV solumedrol and has been started on empiric antibiotic coverage with azithromycin PO. Patient had chest xray on admission showing new minimal 2cm infiltrate left lateral lung base likely COPD. No heart failure. Currently she is afebrile, heart rate is in the 90s normal sinus rhythm, blood pressure on the lower side at 100/67, which will recommend to hold lisinopril. Sodium was found to be 128 on admission and remains at 128 after hydration. Recent echocardiogram from Dec 2021 shows an EF of 35 to 40%. Will recommend to stop IV fluids at this time. Patient reports drinking plenty of water at home but has had poor oral intake. She is monitored in observation further recommendations by pulmonary services. 02/26/2022 Patient is evaluated today resting in bed. Reports decreased appetite, sweaty/chills overnight. Has some nausea, denies emesis or diarrhea today. Continues to feel short of breath with weak cough unable to expectorate much. Blood culture preliminary showing gram positive cocci and patient was started on IV vancomycin with infectious disease consultation. Sodium up to 129, received a dose of IV lasix yesterday. proBNP 1470. Procalcitonin level negative at 0.07. Patient will receive another dose of lasix today IV with intake and output monitoring. Check bladder scan. 02/28/2022 Patient is seen and evaluated in follow-up today appears to be lethargic and reports she is not feeling well. Patient is being followed by infectious disease along with pulmonary maintained on DuoNeb treatments along with now initiating IV steroids. Blood cultures positive for coag negative staph most l ikely contaminant and antibiotics have been discontinued. Patient is afebrile and pro-calcitonin was low although patient was positive for RSV. Per infectious disease mostly supportive care for this. Patient encouraged to increase activity as tolerated and also encouraged oral intake. Continue with consistent carb diet and recommend monitoring Accu-Cheks before meals and at bedtime and will increase the long-acting this patient's blood sugars have been elevated and is now being initiated on IV steroids. Potassium mildly elevated at 4.8 and will follow-up with repeat labs recommend low potassium diet. Sodium is improved at 135 today. Patient continues to be bronchospastic and wheezy and maintained on 4 liters currently and normally wears 2 L in the outpatient setting. Recommend wean FiO2 as tolerated. 03/01/2022 Patient is seen in follow-up this morning reports her breathing is somewhat improved although not back to her baseline. Patient continues with a congested cough and sputum production with infectious disease following. Patient is maintained on IV steroids along with breathing treatments and sputum culture pending at this time. Patient is afebrile denies chest pain or palpitations. Patient feels generalized weakness and fatigue. Patient reports her intake is i mproved slightly and would recommend monitoring Accu-Cheks closely before meals and at bedtime and continue with current regimen. Will follow-up with repeat labs and continue to encourage increased activity as tolerated. 03/02/2022 Patient is seen and evaluated in follow-up today continue to report dyspnea with cough and congestion. Patient being followed by pulmonary maintained on IV antibiotics along with DuoNeb's and IV steroids. Patient's preliminary culture showing gram-negative bacilli although finalized showing pseudomonas aeruginosa and patient will continue on current regimen and transition to oral Cipro per ID recommendations on discharge. Encouraged increase activity as tolerated and encourage oral intake and will discuss with pulmonary about possible discharge in 24 hours. Patient is afebrile denies chest pain or palpitations. No reports of nausea or vomiting noted and patient is tolerating diet. Repeat pro- calcitonin 0.03 and CRP is 0.50. 03/03/2022 Patient seen in follow-up continues to be short of breath and not feeling well. Patient is positive for RSV and Pseudomonas in the sputum and patient is maintained on oral Cipro with infectious disease following. Apparently pulmonary was consulted although on leave and patient not being followed by pulmonary. Patient chronically wears oxygen in the outpatient setting and has had slow improvement back to her baseline. Patient encouraged to increase activity as tolerated and continued on IV steroids at a decreased rate and breath sounds are diminished although improvement in wheezing noted. Patient will continue on oral Cipro per ID recommendations on discharge. Will continue prednisone taper as well once discharged. Patient encouraged to ambulate more frequently and sit up in the chair is doing meals. Patient is afebrile with no reports of nausea or vomiting noted. 03/04/2022 Patient is currently lying in the bed. Awake alert and oriented x3. Still complaints of shortness of breath not improving well. Continued on antibiotics at home ciprofloxacin with sputum cultures growing Pseudomonas and is also tested positive for RSV. Currently requiring oxygen at 2 L per nasal cannula. Afebrile. No nausea vomiting abdominal diarrhea. Patient is being continued Solu-Medrol 40 mg every 12 hourly and antibiotics in the form of ciprofloxacin. Also on DuoNebs. ID is on board. Laboratory data reviewed. Review of Systems Constitutional: Reports fatigue, no reports of chills/sweats Cardio vascular: denied any chest pain, palpitations Gastrointestinal: denied any vomiting, diarrhea. Has some nausea. Pulmonary: Reports shortness of breath and weak cough with phlegm production Neurologic denied any new focal deficits, reports generally weak PHYSICAL EXAMINATION: GENERAL: The patient is alert and oriented x3, reports feeling lethargic and generalized weakness slightly improved from yesterday. Well developed, well nourished. Currently on 3 to 4 L nasal cannula HEENT: Pupils are round and equally reacting to light. EOMI. No scleral icterus. No conjunctival pallor. Normocephalic, atraumatic. No pharyngeal erythema. No thyromegaly. CARDIOVASCULAR: S1 and S2 muffled PULMONARY: Lungs are tight and diminished. with coarse rhonchi noted along with faint expiratory wheezing with improvement. ABDOMEN: Soft, nontender, nondistended, normoactive bowel sounds. No palpable organomegaly. MUSCULOSKELETAL: No joint swelling or deformity. EXTREMITIES: No cyanosis, clubbing, or pedal edema. NEUROLOGICAL: Gross neurological examination did not reveal any focal deficits. SKIN: No rashes. Assessment: Acute on chronic hypoxemic respiratory failure secondary to acute RSV infection with left lung base infiltrate and tracheobronchitis, currently on 3l nasal cannula, wears 2L chronically Gram positive bacteremia , most likely contaminant and repeat cultures are negative Sputum culture showing pseudomonas aeruginosa with some resistance Mild acute on chronic heart failure, systolic dysfunction History asthma/COPD with acute exacerbation secondary to above Hyponatremia initially hypovolemic with elevated BNP, improving Hypertension currently low Hyperlipidemia, history History of SVT Gastroesophageal reflux disease Anxiety/Depression Former smoker GI Prophylaxis DVT Prophylaxis Plan: Recommend continue supplemental oxygen and wean as tolerated. Patient is curren tly maintained on 3 L although chronically wears 2 L outpatient. Patient continues on DuoNeb treatments along with Symbicort and continued IV steroids. Decreased the dose and recommend prednisone taper on discharge Patient's blood sugars have been elevated and will continue sliding scale and long-acting and recommend Accu-Cheks before meals and at bedtime. Recommend consistent carb diet. Encouraged increase activity as tolerated. Encourage the patient is sitting up in the chair with all meals and ambulate more frequently Sputum Culture finalized with pseudomona aeruginosa and has transitioned to oral Cipro per ID recommendations and will continue on discharge Possible discharge in the next 24-48 hours. Due to multiple complex medical issues, prognosis is guarded. Objective - Vital Signs Vital signs: Vital Signs Temp 97.9 F 03/04/22 07:24 Pulse 84 03/04/22 20:31 Resp 20 03/04/22 14:00 BP 183/94 03/04/22 14:00 Pulse Ox 95 03/04/22 14:00 FiO2 Intake & Output 03/04/22 03/04/22 03/05/22 06:59 18:59 06:59 Intake Total 478 Output Total 1300 3 Balance -1300 475 Intake: Oral 478 Output: Urine 1300 Urine/Stool Mix 3 Other: Voiding Method Bedside Commode Bedside Commode - Labs CBC & Chem 7: 03/05/22 06:28 03/05/22 06:28 Labs: Microbiology - Last 24 Hours (Table) 02/26/22 05:34 Blood Culture - Final Blood No Growth after 144 hours
--- NOTE | 2022-03-06 02:32 | P.PN ---
Subjective Progress Note Date: 03/05/22 This is a 77 year old female with history of recurrent chest pain, asthma, COPD, GERD, hypertension, hyperlipidemia, anxiety/depression. Patient is a former smoker and wears 2L of oxygen chronically. Presents to the emergency center by EMS with complaints of progressive shortness of breath, as well as cough with pleuritic chest pain. Denies fever, denies chills. Reports an episode of diarrhea at home with decreased appetite, reports nausea. Denies emesis. She is admitted to the hospital and found to be positive for RSV by PCR testing. Currently receiving IV fluids at 75 mls/hour, IV solumedrol and has been started on empiric antibiotic coverage with azithromycin PO. Patient had chest xray on admission showing new minimal 2cm infiltrate left lateral lung base likely COPD. No heart failure. Currently she is afebrile, heart rate is in the 90s normal sinus rhythm, blood pressure on the lower side at 100/67, which will recommend to hold lisinopril. Sodium was found to be 128 on admission and remains at 128 after hydration. Recent echocardiogram from Dec 2021 shows an EF of 35 to 40%. Will recommend to stop IV fluids at this time. Patient reports drinking plenty of water at home but has had poor oral intake. She is monitored in observation further recommendations by pulmonary services. 02/26/2022 Patient is evaluated today resting in bed. Reports decreased appetite, sweaty/chills overnight. Has some nausea, denies emesis or diarrhea today. Continues to feel short of breath with weak cough unable to expectorate much. Blood culture preliminary showing gram positive cocci and patient was started on IV vancomycin with infectious disease consultation. Sodium up to 129, received a dose of IV lasix yesterday. proBNP 1470. Procalcitonin level negative at 0.07. Patient will receive another dose of lasix today IV with intake and output monitoring. Check bladder scan. 02/28/2022 Patient is seen and evaluated in follow-up today appears to be lethargic and reports she is not feeling well. Patient is being followed by infectious disease along with pulmonary maintained on DuoNeb treatments along with now initiating IV steroids. Blood cultures positive for coag negative staph most l ikely contaminant and antibiotics have been discontinued. Patient is afebrile and pro-calcitonin was low although patient was positive for RSV. Per infectious disease mostly supportive care for this. Patient encouraged to increase activity as tolerated and also encouraged oral intake. Continue with consistent carb diet and recommend monitoring Accu-Cheks before meals and at bedtime and will increase the long-acting this patient's blood sugars have been elevated and is now being initiated on IV steroids. Potassium mildly elevated at 4.8 and will follow-up with repeat labs recommend low potassium diet. Sodium is improved at 135 today. Patient continues to be bronchospastic and wheezy and maintained on 4 liters currently and normally wears 2 L in the outpatient setting. Recommend wean FiO2 as tolerated. 03/01/2022 Patient is seen in follow-up this morning reports her breathing is somewhat improved although not back to her baseline. Patient continues with a congested cough and sputum production with infectious disease following. Patient is maintained on IV steroids along with breathing treatments and sputum culture pending at this time. Patient is afebrile denies chest pain or palpitations. Patient feels generalized weakness and fatigue. Patient reports her intake is i mproved slightly and would recommend monitoring Accu-Cheks closely before meals and at bedtime and continue with current regimen. Will follow-up with repeat labs and continue to encourage increased activity as tolerated. 03/02/2022 Patient is seen and evaluated in follow-up today continue to report dyspnea with cough and congestion. Patient being followed by pulmonary maintained on IV antibiotics along with DuoNeb's and IV steroids. Patient's preliminary culture showing gram-negative bacilli although finalized showing pseudomonas aeruginosa and patient will continue on current regimen and transition to oral Cipro per ID recommendations on discharge. Encouraged increase activity as tolerated and encourage oral intake and will discuss with pulmonary about possible discharge in 24 hours. Patient is afebrile denies chest pain or palpitations. No reports of nausea or vomiting noted and patient is tolerating diet. Repeat pro- calcitonin 0.03 and CRP is 0.50. 03/03/2022 Patient seen in follow-up continues to be short of breath and not feeling well. Patient is positive for RSV and Pseudomonas in the sputum and patient is maintained on oral Cipro with infectious disease following. Apparently pulmonary was consulted although on leave and patient not being followed by pulmonary. Patient chronically wears oxygen in the outpatient setting and has had slow improvement back to her baseline. Patient encouraged to increase activity as tolerated and continued on IV steroids at a decreased rate and breath sounds are diminished although improvement in wheezing noted. Patient will continue on oral Cipro per ID recommendations on discharge. Will continue prednisone taper as well once discharged. Patient encouraged to ambulate more frequently and sit up in the chair is doing meals. Patient is afebrile with no reports of nausea or vomiting noted. 03/04/2022 Patient is currently lying in the bed. Awake alert and oriented x3. Still complaints of shortness of breath not improving well. Continued on antibiotics at home ciprofloxacin with sputum cultures growing Pseudomonas and is also tested positive for RSV. Currently requiring oxygen at 2 L per nasal cannula. Afebrile. No nausea vomiting abdominal diarrhea. Patient is being continued Solu-Medrol 40 mg every 12 hourly and antibiotics in the form of ciprofloxacin. Also on DuoNebs. ID is on board. Laboratory data reviewed. 03/05/2022 Patient is currently resting in bed. Awake alert and oriented x3. Still comp lains of shortness of breath. Oxygen titrated down to 2 L via nasal cannula. Patient was tachycardic with heart rate 124 but improved now. Remains on antibiotics and IV Solu-Medrol. Patient be changed to by mouth. No complaints of chest pain. No fever no chills. Chest x-ray yesterday showed chronic emphysematous changes without acute pulmonary process. Patient remains on antibiotics in the form of ciprofloxacin. Laboratory data showed WBC 7.0 hemoglobin 11.6 and platelets 327 sodium 137 p otassium 4.9 chloride 99 bicarb is 25.1 BUN 11.7 creatinine 0.5. And calcium 9.5. Anticipate discharge in next 24 to 48 hours. Review of Systems Constitutional: Reports fatigue, no reports of chills/sweats Cardio vascular: denied any chest pain, palpitations Gastrointestinal: denied any vomiting, diarrhea. Has some nausea. Pulmonary: Reports shortness of breath and weak cough with phlegm production Neurologic denied any new focal deficits, reports generally weak PHYSICAL EXAMINATION: GENERAL: The patient is alert and oriented x3, reports feeling lethargic and generalized weakness slightly improved from yesterday. Well developed, well nourished. Currently on 3 to 4 L nasal cannula HEENT: Pupils are round and equally reacting to light. EOMI. No scleral icterus. No conjunctival pallor. Normocephalic, atraumatic. No pharyngeal erythema. No thyromegaly. CARDIOVASCULAR: S1 and S2 muffled PULMONARY: Lungs are tight and diminished. with coarse rhonchi noted along with faint expiratory wheezing with improvement. ABDOMEN: Soft, nontender, nondistended, normoactive bowel sounds. No palpable organomegaly. MUSCULOSKELETAL: No joint swelling or deformity. EXTREMITIES: No cyanosis, clubbing, or pedal edema. NEUROLOGICAL: Gross neurological examination did not reveal any focal deficits. SKIN: No rashes. Assessment: Acute on chronic hypoxemic respiratory failure secondary to acute RSV infection with left lung base infiltrate and tracheobronchitis, Titrate down to 2 L baseline at home. Gram positive bacteremia , most likely contaminant and repeat cultures are negative Sputum culture showing pseudomonas aeruginosa with some resistance Mild acute on chronic heart failure, systolic dysfunction History asthma/COPD with acute exacerbation secondary to above Hyponatremia initially hypovolemic with elevated BNP, improving Hypertension currently low Hyperlipidemia, history History of SVT Gastroesophageal reflux disease Anxiety/Depression Former smoker GI Prophylaxis DVT Prophylaxis Plan: Recommend continue supplemental oxygen and wean as tolerated. Titrate down to 2 L baseline at home.. Patient continues on DuoNeb treatments along with Symbicort and continued IV steroids. Decreased the dose and recommend prednisone taper on discharge Patient's blood sugars have been elevated and will continue sliding scale and long-acting and recommend Accu-Cheks before meals and at bedtime. Recommend consistent carb diet. Encouraged increase activity as tolerated. Encourage the patient is sitting up in the chair with all meals and ambulate more frequently Sputum Culture finalized with pseudomona aeruginosa and has transitioned to oral Cipro per ID recommendations and will continue on discharge Possible discharge in the next 24-48 hours. Due to multiple complex medical issues, prognosis is guarded. Objective - Vital Signs Vital signs: Vital Signs Temp 98.1 F 03/05/22 19:15 Pulse 88 03/05/22 21:34 Resp 18 03/05/22 21:34 BP 107/71 03/05/22 19:15 Pulse Ox 96 03/05/22 19:15 FiO2 Intake & Output 03/05/22 03/05/22 03/06/22 06:59 18:59 06:59 Intake Total 236 478 Output Total 2 Balance 234 478 Intake: Oral 236 478 Output: Urine/Stool Mix 2 Other: Voiding Method Bedside Commode Bedside Commode # Voids 1 - Labs CBC & Chem 7: 03/05/22 06:28 03/05/22 06:28 Labs: Abnormal Lab Results - Last 24 Hours (Table) 03/05/22 03/05/22 Range/Units 06:28 06:28 Hgb 11.6 L (12.0-15.0) g/dL MCH 26.5 L (27.0-32.0) pg MCHC 30.2 L (32.0-37.0) g/dL RDW 15.3 H (11.5-14.5) % Immature Gran # 0.15 H (0.00-0.04) X 10*3/uL Eosinophils # 0 L (0.04-0.35) X 10*3/uL Creatinine 0.5 L (0.6-1.5) mg/dL BUN/Creatinine Ratio 23.40 H (12.00-20.00) Ratio Glucose 133 H (70-110) mg/dL
[2022-03-06] MEDS: FORMOTEROL FUMARATE 20 MCG/2 ML NEBU INHALATION SCH ×2 (07:02→20:24)
[2022-03-06] MEDS: IPRATROPIUM-ALBUTEROL 3 ML NEB INHALATION SCH ×4 (07:02→20:24)
[2022-03-06] MEDS: SYMBICORT 160-4.5 MCG INHALER INHALATION SCH ×2 (07:03→20:25)
[2022-03-06] MEDS: SERTRALINE 100 MG TAB PO SCH ×2 (08:11→19:49)
[2022-03-06] MEDS: PANTOPRAZOLE 40 MG/10 ML VIAL IVP SCH (08:11)
[2022-03-06] MEDS: METOPROLOL TARTRATE 25 MG TAB PO SCH ×2 (08:11→19:49)
[2022-03-06] MEDS: CIPROFLOXACIN HCL 500 MG TAB PO SCH ×2 (08:11→19:49)
[2022-03-06] MEDS: SPIRONOLACTONE 25 MG TAB PO SCH (08:11)
[2022-03-06] MEDS: predniSONE 20 MG TAB PO SCH (08:11)
[2022-03-06] MEDS: ALPRAZolam 0.5 MG TAB PO PRN ×3 (08:11→19:48)
[2022-03-06] MEDS: HEPARIN SODIUM,PORCINE/PF 5,000 UNIT/0.5 ML SYRINGE SQ SCH ×2 (08:11→19:48)
--- NOTE | 2022-03-06 08:22 | P.PN ---
Subjective Progress Note Date: 03/05/22 Principal diagnosis: Positive blood culture and RSV positive Patient is 77-year-old female with a past medical history significant for asthma/COPD GERD hypertension hyperlipidemia anxiety depression former smoker and is currently on her 2 L nasal cannula presenting to the ER for evaluation of increasing shortness of breath symptom has been going on for few days before presentation to the hospital , patient had been diagnosed with a COPD exacerbation this tested positive for RSV and did have a positive blood culture subsequently finalized as staph epi. On today's evaluation that is 03/05/2022, the patient continues to be afebrile, the patient still complaining of some soreness of breath however currently the patient is only on 2 L nasal cannula, denies any worsening cough or sputum production nausea but no vomiting no abdominal pain or diarrhea Objective - Vital Signs Vital signs: Vital Signs Temp 97.9 F 03/05/22 14:00 Pulse 112 H 03/05/22 16:02 Resp 20 03/05/22 14:00 BP 131/80 03/05/22 14:00 Pulse Ox 97 03/05/22 14:00 FiO2 Intake & Output 03/04/22 03/05/22 03/05/22 18:59 06:59 18:59 Intake Total 478 236 478 Output Total 3 2 Balance 475 234 478 Intake: Oral 478 236 478 Output: Urine/Stool Mix 3 2 Other: Voiding Method Bedside Commode Bedside Commode - Exam GENERAL DESCRIPTION: An elderly female lying in bed in no distress RESPIRATORY SYSTEM: Unlabored breathing , decreased intensity of breath sounds no wheeze HEART: S1 S2 regular rate and rhythm , ABDOMEN: Soft , no tenderness EXTREMITIES: No edema feet - Labs CBC & Chem 7: 03/05/22 06:28 03/05/22 06:28 Labs: Abnormal Lab Results - Last 24 Hours (Table) 03/05/22 03/05/22 Range/Units 06:28 06:28 Hgb 11.6 L (12.0-15.0) g/dL MCH 26.5 L (27.0-32.0) pg MCHC 30.2 L (32.0-37.0) g/dL RDW 15.3 H (11.5-14.5) % Immature Gran # 0.15 H (0.00-0.04) X 10*3/uL Eosinophils # 0 L (0.04-0.35) X 10*3/uL Creatinine 0.5 L (0.6-1.5) mg/dL BUN/Creatinine Ratio 23.40 H (12.00-20.00) Ratio Glucose 133 H (70-110) mg/dL Assessment and Plan (1) Positive blood culture Current Visit: Yes Status: Acute Code(s): R78.81 - BACTEREMIA SNOMED Code(s): 254652993 (2) RSV infection Current Visit: Yes Status: Acute Code(s): B33.8 - OTHER SPECIFIED VIRAL DISEASES SNOMED Code(s): 99647544 Plan: 1patient presented to hospital with increasing shortness of breath which is more likely to her COPD exacerbation possibly exacerbated by RSV clinically not behaving as secondary bacterial pneumonia as the patient did have a normal procalcitonin chest x-ray did not show any consolidation suspicious for bacterial pneumonia. 2positive blood culture with gram-positive cocci which has been finalized as staph epi and possible skin contamination , no need for vancomycin 3treatment of RSV is mostly supportive. 4-patient with purulent tracheobronchitis causing COPD exacerbation chest x-ray repeated 03/04/2022 did not show any acute changes, sputum grow pseudomonas aeruginosa, patient to continue with oral Cipro along with bronchodilator and steroids per pulmonary and monitor clinical course closely Time with Patient: Less than 30
[2022-03-06] MEDS: ACETAMINOPHEN TAB 325 MG TAB PO PRN ×2 (10:24→19:48)
[2022-03-06] MEDS: ONDANSETRON 4 MG/2 ML VIAL IVP PRN (10:24)
--- NOTE | 2022-03-06 12:22 | P.PN ---
Subjective Progress Note Date: 03/06/22 Principal diagnosis: Positive blood culture and RSV positive Patient is 77-year-old female with a past medical history significant for asthma/COPD GERD hypertension hyperlipidemia anxiety depression former smoker and is currently on her 2 L nasal cannula presenting to the ER for evaluation of increasing shortness of breath symptom has been going on for few days before presentation to the hospital , patient had been diagnosed with a COPD exacerbation this tested positive for RSV and did have a positive blood culture subsequently finalized as staph epi. On today's evaluation that is 03/06/2022, the patient remains to be afebrile, the patient denies any chest pain continued to complain of cough and is bringing up some hope sputum no hemoptysis no nausea no vomiting no abdominal pain or diarrhea Objective - Vital Signs Vital signs: Vital Signs Temp 98.4 F 03/06/22 08:00 Pulse 78 03/06/22 11:07 Resp 17 03/06/22 08:00 BP 146/79 03/06/22 08:00 Pulse Ox 97 03/06/22 08:00 FiO2 Intake & Output 03/05/22 03/06/22 03/06/22 18:59 06:59 18:59 Intake Total 478 180 Output Total 1600 Balance 478 -1420 Weight 61.235 kg Intake: Oral 478 180 Output: Urine 1600 Other: Voiding Method Bedside Commode Bedside Commode # Voids 1 - Exam GENERAL DESCRIPTION: An elderly female lying in bed in no distress RESPIRATORY SYSTEM: Unlabored breathing , decreased intensity of breath sounds no wheeze HEART: S1 S2 regular rate and rhythm , ABDOMEN: Soft , no tenderness EXTREMITIES: No edema feet - Labs CBC & Chem 7: 03/05/22 06:28 03/05/22 06:28 Assessment and Plan (1) Positive blood culture Current Visit: Yes Status: Acute Code(s): R78.81 - BACTEREMIA SNOMED Code(s): 896276112 (2) RSV infection Current Visit: Yes Status: Acute Code(s): B33.8 - OTHER SPECIFIED VIRAL DISEASES SNOMED Code(s): 15701643 Plan: 1patient presented to hospital with increasing shortness of breath which is more likely to her COPD exacerbation possibly exacerbated by RSV clinically not behaving as secondary bacterial pneumonia as the patient did have a normal procalcitonin chest x-ray did not show any consolidation suspicious for bacterial pneumonia. 2positive blood culture with gram-positive cocci which has been finalized as staph epi and possible skin contamination , no need for vancomycin 3patient with purulent tracheobronchitis causing COPD exacerbation chest x-ray 03/04/2022 did not show any acute changes, sputum grow pseudomonas aeruginosa, patient to continue with oral Cipro and management of steroids and bronchodilator per pulmonary and monitor clinical course closely Time with Patient: Less than 30
--- NOTE | 2022-03-06 19:18 | P.PN ---
Subjective Progress Note Date: 03/06/22 This is a 77 year old female with history of recurrent chest pain, asthma, COPD, GERD, hypertension, hyperlipidemia, anxiety/depression. Patient is a former smoker and wears 2L of oxygen chronically. Presents to the emergency center by EMS with complaints of progressive shortness of breath, as well as cough with pleuritic chest pain. Denies fever, denies chills. Reports an episode of diarrhea at home with decreased appetite, reports nausea. Denies emesis. She is admitted to the hospital and found to be positive for RSV by PCR testing. Currently receiving IV fluids at 75 mls/hour, IV solumedrol and has been started on empiric antibiotic coverage with azithromycin PO. Patient had chest xray on admission showing new minimal 2cm infiltrate left lateral lung base likely COPD. No heart failure. Currently she is afebrile, heart rate is in the 90s normal sinus rhythm, blood pressure on the lower side at 100/67, which will recommend to hold lisinopril. Sodium was found to be 128 on admission and remains at 128 after hydration. Recent echocardiogram from Dec 2021 shows an EF of 35 to 40%. Will recommend to stop IV fluids at this time. Patient reports drinking plenty of water at home but has had poor oral intake. She is monitored in observation further recommendations by pulmonary services. 02/26/2022 Patient is evaluated today resting in bed. Reports decreased appetite, sweaty/chills overnight. Has some nausea, denies emesis or diarrhea today. Continues to feel short of breath with weak cough unable to expectorate much. Blood culture preliminary showing gram positive cocci and patient was started on IV vancomycin with infectious disease consultation. Sodium up to 129, received a dose of IV lasix yesterday. proBNP 1470. Procalcitonin level negative at 0.07. Patient will receive another dose of lasix today IV with intake and output monitoring. Check bladder scan. 02/28/2022 Patient is seen and evaluated in follow-up today appears to be lethargic and reports she is not feeling well. Patient is being followed by infectious disease along with pulmonary maintained on DuoNeb treatments along with now initiating IV steroids. Blood cultures positive for coag negative staph most likely contaminant and antibiotics have been discontinued. Patient is afebrile and pro-calcitonin was low although patient was positive for RSV. Per infectious disease mostly supportive care for this. Patient encouraged to increase activity as tolerated and also encouraged oral intake. Continue with consistent carb diet and recommend monitoring Accu-Cheks before meals and at bedtime and will increase the long-acting this patient's blood sugars have been elevated and is now being initiated on IV steroids. Potassium mildly elevated at 4.8 and will follow-up with repeat labs recommend low potassium diet. Sodium is improved at 135 today. Patient continues to be bronchospastic and wheezy and maintained on 4 liters currently and normally wears 2 L in the outpatient setting. Recommend wean FiO2 as tolerated. 03/01/2022 Patient is seen in follow-up this morning reports her breathing is somewhat improved although not back to her baseline. Patient continues with a congested cough and sputum production with infectious disease following. Patient is maintained on IV steroids along with breathing treatments and sputum culture pending at this time. Patient is afebrile denies chest pain or palpitations. Patient feels generalized weakness and fatigue. Patient reports her intake is improved slightly and would recommend monitoring Accu-Cheks closely before meals and at bedtime and continue with current regimen. Will follow-up with repeat labs and continue to encourage increased activity as tolerated. 03/02/2022 Patient is seen and evaluated in follow-up today continue to report dyspnea with cough and congestion. Patient being followed by pulmonary maintained on IV antibiotics along with DuoNeb's and IV steroids. Patient's preliminary culture showing gram-negative bacilli although finalized showing pseudomonas aeruginosa and patient will continue on current regimen and transition to oral Cipro per ID recommendations on discharge. Encouraged increase activity as tolerated and encourage oral intake and will discuss with pulmonary about possible discharge in 24 hours. Patient is afebrile denies chest pain or palpitations. No reports of nausea or vomiting noted and patient is tolerating diet. Repeat pro- calcitonin 0.03 and CRP is 0.50. 03/03/2022 Patient seen in follow-up continues to be short of breath and not feeling well. Patient is positive for RSV and Pseudomonas in the sputum and patient is maintained on oral Cipro with infectious disease following. Apparently pulmonary was consulted although on leave and patient not being followed by pulmonary. Patient chronically wears oxygen in the outpatient setting and has had slow improvement back to her baseline. Patient encouraged to increase activity as tolerated and continued on IV steroids at a decreased rate and breath sounds are diminished although improvement in wheezing noted. Patient wi ll continue on oral Cipro per ID recommendations on discharge. Will continue prednisone taper as well once discharged. Patient encouraged to ambulate more frequently and sit up in the chair is doing meals. Patient is afebrile with no reports of nausea or vomiting noted. 03/04/2022 Patient is currently lying in the bed. Awake alert and oriented x3. Still complaints of shortness of breath not improving well. Continued on antibiotics at home ciprofloxacin with sputum cultures growing Pseudomonas and is also tested positive for RSV. Currently requiring oxygen at 2 L per nasal cannula. Afebrile. No nausea vomiting abdominal diarrhea. Patient is being continued Solu-Medrol 40 mg every 12 hourly and antibiotics in the form of ciprofloxacin. Also on DuoNebs. ID is on board. Laboratory data reviewed. 03/05/2022 Patient is currently resting in bed. Awake alert and oriented x3. Still co mplains of shortness of breath. Oxygen titrated down to 2 L via nasal cannula. Patient was tachycardic with heart rate 124 but improved now. Remains on antibiotics and IV Solu-Medrol. Patient be changed to by mouth. No complaints of chest pain. No fever no chills. Chest x-ray yesterday showed chronic emphysematous changes without acute pulmonary process. Patient remains on antibiotics in the form of ciprofloxacin. Laboratory data showed WBC 7.0 hemoglobin 11.6 and platelets 327 sodium 137 potassium 4.9 chloride 99 bicarb is 25.1 BUN 11.7 creatinine 0.5. And calcium 9.5. Anticipate discharge in next 24 to 48 hours. 03/06/2022 Patient is seen in follow-up today and has been seen daily during this hospitalization only in the bed. Patient encouraged once again to increase activity as tolerated and get up out of the bed more often and sit up in the chair. Patient continues on her 2 L which she chronically wears outpatient with no worsening of her shortness of breath. Patient reports she "feels crappy and not ready for discharge and would be right back in the ER" if she was discharged today. Patient began being extremely tearful during exam asking for 1 more day. Patient is maintained on oral Cipro with infectious disease following for Pseudomonas in the sputum and is maintained on IV steroids. Patient with minimal wheezing noted on exam we'll decrease the dose and start oral taper. Encouraged increase activity and oral intake. Patient is afebrile denies chest pain or palpitations. Patient did have chest pain reported a few nights ago and troponins and chest x-ray were negative. Review of Systems Constitutional: Reports fatigue, no reports of chills/sweats Cardio vascular: denied any chest pain, palpitations Gastrointestinal: denied any vomiting, diarrhea. Has some nausea. Pulmonary: Reports shortness of breath and weak cough with phlegm production Neurologic denied any new focal deficits, reports generally weak PHYSICAL EXAMINATION: GENERAL: The patient is alert and oriented x3, reports feeling lethargic and generalized weakness reporting not ready for discharge yet . Well developed, well nourished. Currently on 3 L nasal cannula HEENT: Pupils are round and equally reacting to light. EOMI. No scleral icterus. No conjunctival pallor. Normocephalic, atraumatic. No pharyngeal erythema. No thyromegaly. CARDIOVASCULAR: S1 and S2 muffled PULMONARY: Lungs are diminished. with coarse rhonchi with improvement. ABDOMEN: Soft, nontender, nondistended, normoactive bowel sounds. No palpable organomegaly. MUSCULOSKELETAL: No joint swelling or deformity. EXTREMITIES: No cyanosis, clubbing, or pedal edema. NEUROLOGICAL: Gross neurological examination did not reveal any focal deficits. SKIN: No rashes. Assessment: Acute on chronic hypoxemic respiratory failure secondary to acute RSV infection with left lung base infiltrate and tracheobronchitis, currently on 2-3 nasal cannula, wears 2L chronically Gram positive bacteremia , most likely contaminant and repeat cultures are negative Sputum culture showing pseudomonas aeruginosa with some resistance Mild acute on chronic heart failure, systolic dysfunction History asthma/COPD with acute exacerbation secondary to above Hyponatremia initially hypovolemic with elevated BNP, improving Hypertension currently low Hyperlipidemia, history History of SVT Gastroesophageal reflux disease Anxiety/Depression Former smoker GI Prophylaxis DVT Prophylaxis Plan: Recommend continue supplemental oxygen and wean as tolerated. Patient is currently maintained on 3 L although chronically wears 2 L outpatient. Patient continues on DuoNeb treatments along with Symbicort and steroids being adjusted to oral and will continue taper Patient's blood sugars have been elevated and will continue sliding scale and long-acting and recommend Accu-Cheks before meals and at bedtime. Recommend c onsistent carb diet. Encouraged increase activity as tolerated. Encourage the patient is sitting up in the chair with all meals and ambulate more frequently Sputum Culture finalized with pseudomona aeruginosa and will continue a course of oral Cipro per ID recommendations Possible discharge in the 24 hours. Due to multiple complex medical issues, prognosis is guarded. The impression and plan of care has been dictated by Janell Luevano, Nurse Practitioner as directed. Dr. Mariely MD I have performed a history and examination and MDM of this patient, discussed the same with the dictator, and agree with the dictator's assessment and plan as written ,documented as a scribe. Based on total visit time, I have performed more than 50% of the visit. Objective - Vital Signs Vital signs: Vital Signs Temp 98.4 F 03/06/22 08:00 Pulse 83 03/06/22 08:00 Resp 17 03/06/22 08:00 BP 146/79 03/06/22 08:00 Pulse Ox 97 03/06/22 08:00 FiO2 Intake & Output 03/05/22 03/06/22 03/06/22 18:59 06:59 18:59 Intake Total 478 180 Output Total 1600 Balance 478 -1420 Intake: Oral 478 180 Output: Urine 1600 Other: Voiding Method Bedside Commode Bedside Commode # Voids 1 - Labs CBC & Chem 7: 03/05/22 06:28 03/05/22 06:28 Labs: Abnormal Lab Results - Last 24 Hours (Table) 03/05/22 03/05/22 Range/Units 06:28 06:28 Hgb 11.6 L (12.0-15.0) g/dL MCH 26.5 L (27.0-32.0) pg MCHC 30.2 L (32.0-37.0) g/dL RDW 15.3 H (11.5-14.5) % Immature Gran # 0.15 H (0.00-0.04) X 10*3/uL Eosinophils # 0 L (0.04-0.35) X 10*3/uL Creatinine 0.5 L (0.6-1.5) mg/dL BUN/Creatinine Ratio 23.40 H (12.00-20.00) Ratio Glucose 133 H (70-110) mg/dL
[2022-03-06] MEDS: MONTELUKAST 10 MG TAB PO SCH (19:48)
[2022-03-06] MEDS: ATORVASTATIN 20 MG TAB PO SCH (19:49)
[2022-03-07] MEDS: IPRATROPIUM-ALBUTEROL 3 ML NEB INHALATION SCH ×4 (07:51→20:37)
[2022-03-07] MEDS: ACETAMINOPHEN TAB 325 MG TAB PO PRN ×2 (07:51→19:46)
[2022-03-07] MEDS: SYMBICORT 160-4.5 MCG INHALER INHALATION SCH ×2 (07:51→20:36)
[2022-03-07] MEDS: PANTOPRAZOLE 40 MG/10 ML VIAL IVP SCH (07:51)
[2022-03-07] MEDS: FORMOTEROL FUMARATE 20 MCG/2 ML NEBU INHALATION SCH ×2 (07:51→20:36)
[2022-03-07] MEDS: ALPRAZolam 0.5 MG TAB PO PRN ×3 (07:52→19:46)
[2022-03-07] MEDS: METOPROLOL TARTRATE 25 MG TAB PO SCH ×2 (07:52→19:46)
[2022-03-07] MEDS: SPIRONOLACTONE 25 MG TAB PO SCH (07:52)
[2022-03-07] MEDS: predniSONE 20 MG TAB PO SCH (07:52)
[2022-03-07] MEDS: CIPROFLOXACIN HCL 500 MG TAB PO SCH ×2 (07:52→19:46)
[2022-03-07] MEDS: SERTRALINE 100 MG TAB PO SCH ×2 (07:53→19:46)
[2022-03-07] MEDS: HEPARIN SODIUM,PORCINE/PF 5,000 UNIT/0.5 ML SYRINGE SQ SCH ×2 (07:53→19:46)
[2022-03-07] MEDS: ONDANSETRON 4 MG/2 ML VIAL IVP PRN (09:15)
--- NOTE | 2022-03-07 18:33 | P.PN ---
Subjective Progress Note Date: 03/07/22 This is a 77 year old female with history of recurrent chest pain, asthma, COPD, GERD, hypertension, hyperlipidemia, anxiety/depression. Patient is a former smoker and wears 2L of oxygen chronically. Presents to the emergency center by EMS with complaints of progressive shortness of breath, as well as cough with pleuritic chest pain. Denies fever, denies chills. Reports an episode of diarrhea at home with decreased appetite, reports nausea. Denies emesis. She is admitted to the hospital and found to be positive for RSV by PCR testing. Currently receiving IV fluids at 75 mls/hour, IV solumedrol and has been started on empiric antibiotic coverage with azithromycin PO. Patient had chest xray on admission showing new minimal 2cm infiltrate left lateral lung base likely COPD. No heart failure. Currently she is afebrile, heart rate is in the 90s normal sinus rhythm, blood pressure on the lower side at 100/67, which will recommend to hold lisinopril. Sodium was found to be 128 on admission and remains at 128 after hydration. Recent echocardiogram from Dec 2021 shows an EF of 35 to 40%. Will recommend to stop IV fluids at this time. Patient reports drinking plenty of water at home but has had poor oral intake. She is monitored in observation further recommendations by pulmonary services. 02/26/2022 Patient is evaluated today resting in bed. Reports decreased appetite, sweaty/chills overnight. Has some nausea, denies emesis or diarrhea today. Continues to feel short of breath with weak cough unable to expectorate much. Blood culture preliminary showing gram positive cocci and patient was started on IV vancomycin with infectious disease consultation. Sodium up to 129, received a dose of IV lasix yesterday. proBNP 1470. Procalcitonin level negative at 0.07. Patient will receive another dose of lasix today IV with intake and output monitoring. Check bladder scan. 02/28/2022 Patient is seen and evaluated in follow-up today appears to be lethargic and reports she is not feeling well. Patient is being followed by infectious disease along with pulmonary maintained on DuoNeb treatments along with now initiating IV steroids. Blood cultures positive for coag negative staph most likely contaminant and antibiotics have been discontinued. Patient is afebrile and pro-calcitonin was low although patient was positive for RSV. Per infectious disease mostly supportive care for this. Patient encouraged to increase activity as tolerated and also encouraged oral intake. Continue with consistent carb diet and recommend monitoring Accu-Cheks before meals and at bedtime and will increase the long-acting this patient's blood sugars have been elevated and is now being initiated on IV steroids. Potassium mildly elevated at 4.8 and will follow-up with repeat labs recommend low potassium diet. Sodium is improved at 135 today. Patient continues to be bronchospastic and wheezy and maintained on 4 liters currently and normally wears 2 L in the outpatient setting. Recommend wean FiO2 as tolerated. 03/01/2022 Patient is seen in follow-up this morning reports her breathing is somewhat improved although not back to her baseline. Patient continues with a congested cough and sputum production with infectious disease following. Patient is maintained on IV steroids along with breathing treatments and sputum culture pending at this time. Patient is afebrile denies chest pain or palpitations. Patient feels generalized weakness and fatigue. Patient reports her intake is improved slightly and would recommend monitoring Accu-Cheks closely before meals and at bedtime and continue with current regimen. Will follow-up with repeat labs and continue to encourage increased activity as tolerated. 03/02/2022 Patient is seen and evaluated in follow-up today continue to report dyspnea with cough and congestion. Patient being followed by pulmonary maintained on IV antibiotics along with DuoNeb's and IV steroids. Patient's preliminary culture showing gram-negative bacilli although finalized showing pseudomonas aeruginosa and patient will continue on current regimen and transition to oral Cipro per ID recommendations on discharge. Encouraged increase activity as tolerated and encourage oral intake and will discuss with pulmonary about possible discharge in 24 hours. Patient is afebrile denies chest pain or palpitations. No reports of nausea or vomiting noted and patient is tolerating diet. Repeat pro- calcitonin 0.03 and CRP is 0.50. 03/03/2022 Patient seen in follow-up continues to be short of breath and not feeling well. Patient is positive for RSV and Pseudomonas in the sputum and patient is maintained on oral Cipro with infectious disease following. Apparently pulmonary was consulted although on leave and patient not being followed by pulmonary. Patient chronically wears oxygen in the outpatient setting and has had slow improvement back to her baseline. Patient encouraged to increase activity as tolerated and continued on IV steroids at a decreased rate and breath sounds are diminished although improvement in wheezing noted. Patient wi ll continue on oral Cipro per ID recommendations on discharge. Will continue prednisone taper as well once discharged. Patient encouraged to ambulate more frequently and sit up in the chair is doing meals. Patient is afebrile with no reports of nausea or vomiting noted. 03/04/2022 Patient is currently lying in the bed. Awake alert and oriented x3. Still complaints of shortness of breath not improving well. Continued on antibiotics at home ciprofloxacin with sputum cultures growing Pseudomonas and is also tested positive for RSV. Currently requiring oxygen at 2 L per nasal cannula. Afebrile. No nausea vomiting abdominal diarrhea. Patient is being continued Solu-Medrol 40 mg every 12 hourly and antibiotics in the form of ciprofloxacin. Also on DuoNebs. ID is on board. Laboratory data reviewed. 03/05/2022 Patient is currently resting in bed. Awake alert and oriented x3. Still co mplains of shortness of breath. Oxygen titrated down to 2 L via nasal cannula. Patient was tachycardic with heart rate 124 but improved now. Remains on antibiotics and IV Solu-Medrol. Patient be changed to by mouth. No complaints of chest pain. No fever no chills. Chest x-ray yesterday showed chronic emphysematous changes without acute pulmonary process. Patient remains on antibiotics in the form of ciprofloxacin. Laboratory data showed WBC 7.0 hemoglobin 11.6 and platelets 327 sodium 137 potassium 4.9 chloride 99 bicarb is 25.1 BUN 11.7 creatinine 0.5. And calcium 9.5. Anticipate discharge in next 24 to 48 hours. 03/06/2022 Patient is seen in follow-up today and has been seen daily during this hospitalization only in the bed. Patient encouraged once again to increase activity as tolerated and get up out of the bed more often and sit up in the chair. Patient continues on her 2 L which she chronically wears outpatient with no worsening of her shortness of breath. Patient reports she "feels crappy and not ready for discharge and would be right back in the ER" if she was discharged today. Patient began being extremely tearful during exam asking for 1 more day. Patient is maintained on oral Cipro with infectious disease following for Pseudomonas in the sputum and is maintained on IV steroids. Patient with minimal wheezing noted on exam we'll decrease the dose and start oral taper. Encouraged increase activity and oral intake. Patient is afebrile denies chest pain or palpitations. Patient did have chest pain reported a few nights ago and troponins and chest x-ray were negative. 03/07/2022 Patient is seen today continues to report she is feeling generally weak and unwell and does not feel ready to go home. Patient has been maintained on IV steroids for COPD exacerbation and treated for pneumonia along with sputum finalizing showing pseudomonas aeruginosa and patient is maintained on Cipro. Patient has been transitioned to oral steroids and continued on DuoNeb treatments. Patient has incentive spirometer at the bedside and encouraged to continue using at least 10 times every hour while awake. Patient encouraged to increase activity although continues to fail to do so will have physical therapy evaluate the patient. Discussed once again about discharge planning and patient would now like to discuss with case management about possible ECF for continued strength and mobility. Patient is significantly weak and has had prolonged hospitalization including 9 days in the hospital. Patient is afebrile denies chest pains currently denies worsening shortness of breath. No reports of nausea or vomiting and patient is tolerating diet. Review of Systems Constitutional: Reports fatigue, no reports of chills/sweats Cardio vascular: denied any chest pain, palpitations Gastrointestinal: denied any vomiting, diarrhea. Has some nausea occasionally. Pulmonary: Reports shortness of breath and weak cough with phlegm production Neurologic denied any new focal deficits, reports generally weak and now agreeable to rehab PHYSICAL EXAMINATION: GENERAL: The patient is alert and oriented x3, reports feeling lethargic and generalized weakness reporting not ready for discharge yet . Well developed, well nourished. Currently on 3 L nasal cannula HEENT: Pupils are round and equally reacting to light. EOMI. No scleral icterus. No conjunctival pallor. Normocephalic, atraumatic. No pharyngeal erythema. No thyromegaly. CARDIOVASCULAR: S1 and S2 muffled PULMONARY: Lungs are diminished. with coarse rhonchi with improvement. ABDOMEN: Soft, nontender, nondistended, normoactive bowel sounds. No palpable organomegaly. MUSCULOSKELETAL: No joint swelling or deformity. EXTREMITIES: No cyanosis, clubbing, or pedal edema. NEUROLOGICAL: Gross neurological examination did not reveal any focal deficits. SKIN: No rashes. Assessment: Acute on chronic hypoxemic respiratory failure secondary to acute RSV infection with left lung base infiltrate and tracheobronchitis, currently on 2-3 nasal cannula, wears 2L chronically Gram positive bacteremia , most likely contaminant and repeat cultures are negative Sputum culture showing pseudomonas aeruginosa with some resistance Mild acute on chronic heart failure, systolic dysfunction History asthma/COPD with acute exacerbation secondary to above Hyponatremia initially hypovolemic with elevated BNP, improving Hypertension currently low Hyperlipidemia, history History of SVT Gastroesophageal reflux disease Anxiety/Depression Former smoker GI Prophylaxis DVT Prophylaxis Plan: Recommend continue supplemental oxygen and wean as tolerated. Patient is currently maintained on 3 L although chronically wears 2 L outpatient. Patient continues on DuoNeb treatments along with Symbicort and steroids being adjusted to oral and will continue taper Patient's blood sugars have been elevated and will continue sliding scale and long-acting and recommend Accu-Cheks before meals and at bedtime. Recommend consistent carb diet. Encouraged increase activity as tolerated. Encourage the patient is sitting up in the chair with all meals and ambulate more frequently Sputum Culture finalized with pseudomona aeruginosa and will continue a course of oral Cipro per ID recommendations Case management following an discussed again with the patient as patient continues to be weak and not very mobile or back to her baseline and was is now agreeable to rehab. Will have PT/OT evaluated the patient and await accepting facility. Possible discharge in the 24 hours. Due to multiple complex medical issues, prognosis is guarded. The impression and plan of care has been dictated by Janell Luevano, Nurse Practitioner as directed. Dr. Mariely MD I have performed a history and examination and MDM of this patient, discussed the same with the dictator, and agree with the dictator's assessment and plan as written ,documented as a scribe. Based on total visit time, I have performed more than 50% of the visit. Objective - Vital Signs Vital signs: Vital Signs Temp 97.9 F 03/07/22 08:00 Pulse 92 03/07/22 11:42 Resp 16 03/07/22 08:00 BP 158/98 03/07/22 08:00 Pulse Ox 94 L 03/07/22 08:00 FiO2 Intake & Output 03/06/22 03/07/22 03/07/22 18:59 06:59 18:59 Output Total 1000 500 Balance -1000 -500 Weight 61.235 kg Output: Urine 1000 500 Other: Voiding Method Bedside Commode Bedside Commode Bedside Commode # Voids 2 1 # Bowel Movements 2 - Labs CBC & Chem 7: 03/05/22 06:28 03/05/22 06:28
[2022-03-07] MEDS: ATORVASTATIN 20 MG TAB PO SCH (19:47)
[2022-03-07] MEDS: MONTELUKAST 10 MG TAB PO SCH (19:47)
--- NOTE | 2022-03-07 22:12 | P.PN ---
Subjective Progress Note Date: 03/07/22 Principal diagnosis: Positive blood culture and RSV positive Patient is 77-year-old female with a past medical history significant for asthma/COPD GERD hypertension hyperlipidemia anxiety depression former smoker and is currently on her 2 L nasal cannula presenting to the ER for evaluation of increasing shortness of breath symptom has been going on for few days before presentation to the hospital , patient had been diagnosed with a COPD exacerbation this tested positive for RSV and did have a positive blood culture subsequently finalized as staph epi. On today's evaluation that is 03/07/2022, the patient continues to be afebrile, the patient still complaining of shortness of breath and also complaining of cough bringing up some hope sputum and no hemoptysis some nausea but no vomiting no abdominal pain or diarrhea Objective - Vital Signs Vital signs: Vital Signs Temp 97.9 F 03/07/22 08:00 Pulse 88 03/07/22 08:16 Resp 16 03/07/22 08:00 BP 158/98 03/07/22 08:00 Pulse Ox 94 L 03/07/22 08:00 FiO2 Intake & Output 03/06/22 03/07/22 03/07/22 18:59 06:59 18:59 Output Total 1000 500 Balance -1000 -500 Weight 61.235 kg Output: Urine 1000 500 Other: Voiding Method Bedside Commode Bedside Commode Bedside Commode # Voids 2 1 # Bowel Movements 2 - Exam GENERAL DESCRIPTION: An elderly female lying in bed in no distress RESPIRATORY SYSTEM: Unlabored breathing , decreased intensity of breath sounds no wheeze HEART: S1 S2 regular rate and rhythm , ABDOMEN: Soft , no tenderness EXTREMITIES: No edema feet - Labs CBC & Chem 7: 03/05/22 06:28 03/05/22 06:28 Assessment and Plan (1) Positive blood culture Current Visit: Yes Status: Acute Code(s): R78.81 - BACTEREMIA SNOMED Code(s): 077335750 (2) RSV infection Current Visit: Yes Status: Acute Code(s): B33.8 - OTHER SPECIFIED VIRAL DISEASES SNOMED Code(s): 58146779 Plan: 1patient presented to hospital with increasing shortness of breath which is more likely to her COPD exacerbation possibly exacerbated by RSV clinically not behaving as secondary bacterial pneumonia as the patient did have a normal procalcitonin chest x-ray did not show any consolidation suspicious for bacterial pneumonia. 2positive blood culture with gram-positive cocci which has been finalized as staph epi and possible skin contamination , no need for vancomycin 3patient with purulent tracheobronchitis causing COPD exacerbation chest x-ray 03/04/2022 did not show any acute changes, sputum grow pseudomonas aeruginosa, patient currently being treated with oral Cipro on the basis of sensitivity and continue with steroids and bronchodilator per pulmonary and monitor clinical course closely Time with Patient: Less than 30
[2022-03-08] MEDS: IPRATROPIUM-ALBUTEROL 3 ML NEB INHALATION SCH ×4 (07:01→20:21)
[2022-03-08] MEDS: SYMBICORT 160-4.5 MCG INHALER INHALATION SCH ×2 (07:01→20:21)
[2022-03-08] MEDS: FORMOTEROL FUMARATE 20 MCG/2 ML NEBU INHALATION SCH ×2 (07:01→20:21)
[2022-03-08] MEDS: ALPRAZolam 0.5 MG TAB PO PRN ×2 (08:53→16:45)
[2022-03-08] MEDS: METOPROLOL TARTRATE 25 MG TAB PO SCH ×2 (08:53→21:18)
[2022-03-08] MEDS: ACETAMINOPHEN TAB 325 MG TAB PO PRN ×2 (08:53→16:44)
[2022-03-08] MEDS: HEPARIN SODIUM,PORCINE/PF 5,000 UNIT/0.5 ML SYRINGE SQ SCH ×2 (08:53→21:18)
[2022-03-08] MEDS: ONDANSETRON 4 MG/2 ML VIAL IVP PRN (08:53)
[2022-03-08] MEDS: SPIRONOLACTONE 25 MG TAB PO SCH (08:54)
[2022-03-08] MEDS: CIPROFLOXACIN HCL 500 MG TAB PO SCH ×2 (08:54→21:18)
[2022-03-08] MEDS: predniSONE 20 MG TAB PO SCH (08:54)
[2022-03-08] MEDS: PANTOPRAZOLE 40 MG/10 ML VIAL IVP SCH (08:54)
[2022-03-08] MEDS: SERTRALINE 100 MG TAB PO SCH ×2 (08:54→21:18)
--- NOTE | 2022-03-08 12:39 | P.PN ---
Subjective Progress Note Date: 03/08/22 Principal diagnosis: Positive blood culture and RSV positive Patient is 77-year-old female with a past medical history significant for asthma/COPD GERD hypertension hyperlipidemia anxiety depression former smoker and is currently on her 2 L nasal cannula presenting to the ER for evaluation of increasing shortness of breath symptom has been going on for few days before presentation to the hospital , patient had been diagnosed with a COPD exacerbation this tested positive for RSV and did have a positive blood culture subsequently finalized as staph epi. On today's evaluation that is 03/08/2022, the patient remains to be afebrile, the patient it's pretty more comfortably today and is on 2 L nasal cannula the patient denies having any chest pain or worsening cough some nausea but no vomiting no abdominal pain or diarrhea Objective - Vital Signs Vital signs: Vital Signs Temp 98 F 03/08/22 08:00 Pulse 93 03/08/22 08:00 Resp 16 03/08/22 08:00 BP 116/73 03/08/22 08:00 Pulse Ox 98 03/08/22 08:00 FiO2 Intake & Output 03/07/22 03/08/22 03/08/22 18:59 06:59 18:59 Intake Total 477 237 Output Total 600 1300 Balance -123 -1300 237 Intake: Oral 477 237 Output: Urine 600 1300 Other: Voiding Method Bedside Commode Bedside Commode # Voids 4 # Bowel Movements 1 1 - Exam GENERAL DESCRIPTION: An elderly female lying in bed in no distress RESPIRATORY SYSTEM: Unlabored breathing , decreased intensity of breath sounds no wheeze HEART: S1 S2 regular rate and rhythm , ABDOMEN: Soft , no tenderness EXTREMITIES: No edema feet - Labs CBC & Chem 7: 03/05/22 06:28 03/05/22 06:28 Assessment and Plan (1) Positive blood culture Current Visit: Yes Status: Acute Code(s): R78.81 - BACTEREMIA SNOMED Code(s): 665416771 (2) RSV infection Current Visit: Yes Status: Acute Code(s): B33.8 - OTHER SPECIFIED VIRAL DI SEASES SNOMED Code(s): 32975455 Plan: 1patient presented to hospital with increasing shortness of breath which is more likely to her COPD exacerbation possibly exacerbated by RSV clinically not behaving as secondary bacterial pneumonia as the patient did have a normal procalcitonin chest x-ray did not show any consolidation suspicious for b acterial pneumonia. 2positive blood culture with gram-positive cocci which has been finalized as st aph epi and possible skin contamination , no need for vancomycin 3patient with purulent tracheobronchitis causing COPD exacerbation chest x-ray 03/04/2022 did not show any acute changes, sputum grow pseudomonas aeruginosa, patient seemed to have shown some clinical improvement and will continue with oral Cipro for another 5 days on discharge Time with Patient: Less than 30
--- NOTE | 2022-03-08 18:58 | P.PN ---
Subjective Progress Note Date: 03/08/22 This is a 77 year old female with history of recurrent chest pain, asthma, COPD, GERD, hypertension, hyperlipidemia, anxiety/depression. Patient is a former smoker and wears 2L of oxygen chronically. Presents to the emergency center by EMS with complaints of progressive shortness of breath, as well as cough with pleuritic chest pain. Denies fever, denies chills. Reports an episode of diarrhea at home with decreased appetite, reports nausea. Denies emesis. She is admitted to the hospital and found to be positive for RSV by PCR testing. Currently receiving IV fluids at 75 mls/hour, IV solumedrol and has been started on empiric antibiotic coverage with azithromycin PO. Patient had chest xray on admission showing new minimal 2cm infiltrate left lateral lung base likely COPD. No heart failure. Currently she is afebrile, heart rate is in the 90s normal sinus rhythm, blood pressure on the lower side at 100/67, which will recommend to hold lisinopril. Sodium was found to be 128 on admission and remains at 128 after hydration. Recent echocardiogram from Dec 2021 shows an EF of 35 to 40%. Will recommend to stop IV fluids at this time. Patient reports drinking plenty of water at home but has had poor oral intake. She is monitored in observation further recommendations by pulmonary services. 02/26/2022 Patient is evaluated today resting in bed. Reports decreased appetite, sweaty/chills overnight. Has some nausea, denies emesis or diarrhea today. Continues to feel short of breath with weak cough unable to expectorate much. Blood culture preliminary showing gram positive cocci and patient was started on IV vancomycin with infectious disease consultation. Sodium up to 129, received a dose of IV lasix yesterday. proBNP 1470. Procalcitonin level negative at 0.07. Patient will receive another dose of lasix today IV with intake and output monitoring. Check bladder scan. 02/28/2022 Patient is seen and evaluated in follow-up today appears to be lethargic and reports she is not feeling well. Patient is being followed by infectious disease along with pulmonary maintained on DuoNeb treatments along with now initiating IV steroids. Blood cultures positive for coag negative staph most likely contaminant and antibiotics have been discontinued. Patient is afebrile and pro-calcitonin was low although patient was positive for RSV. Per infectious disease mostly supportive care for this. Patient encouraged to increase activity as tolerated and also encouraged oral intake. Continue with consistent carb diet and recommend monitoring Accu-Cheks before meals and at bedtime and will increase the long-acting this patient's blood sugars have been elevated and is now being initiated on IV steroids. Potassium mildly elevated at 4.8 and will follow-up with repeat labs recommend low potassium diet. Sodium is improved at 135 today. Patient continues to be bronchospastic and wheezy and maintained on 4 liters currently and normally wears 2 L in the outpatient setting. Recommend wean FiO2 as tolerated. 03/01/2022 Patient is seen in follow-up this morning reports her breathing is somewhat improved although not back to her baseline. Patient continues with a congested cough and sputum production with infectious disease following. Patient is maintained on IV steroids along with breathing treatments and sputum culture pending at this time. Patient is afebrile denies chest pain or palpitations. Patient feels generalized weakness and fatigue. Patient reports her intake is improved slightly and would recommend monitoring Accu-Cheks closely before meals and at bedtime and continue with current regimen. Will follow-up with repeat labs and continue to encourage increased activity as tolerated. 03/02/2022 Patient is seen and evaluated in follow-up today continue to report dyspnea with cough and congestion. Patient being followed by pulmonary maintained on IV antibiotics along with DuoNeb's and IV steroids. Patient's preliminary culture showing gram-negative bacilli although finalized showing pseudomonas aeruginosa and patient will continue on current regimen and transition to oral Cipro per ID recommendations on discharge. Encouraged increase activity as tolerated and encourage oral intake and will discuss with pulmonary about possible discharge in 24 hours. Patient is afebrile denies chest pain or palpitations. No reports of nausea or vomiting noted and patient is tolerating diet. Repeat pro- calcitonin 0.03 and CRP is 0.50. 03/03/2022 Patient seen in follow-up continues to be short of breath and not feeling well. Patient is positive for RSV and Pseudomonas in the sputum and patient is maintained on oral Cipro with infectious disease following. Apparently pulmonary was consulted although on leave and patient not being followed by pulmonary. Patient chronically wears oxygen in the outpatient setting and has had slow improvement back to her baseline. Patient encouraged to increase activity as tolerated and continued on IV steroids at a decreased rate and breath sounds are diminished although improvement in wheezing noted. Patient wi ll continue on oral Cipro per ID recommendations on discharge. Will continue prednisone taper as well once discharged. Patient encouraged to ambulate more frequently and sit up in the chair is doing meals. Patient is afebrile with no reports of nausea or vomiting noted. 03/04/2022 Patient is currently lying in the bed. Awake alert and oriented x3. Still complaints of shortness of breath not improving well. Continued on antibiotics at home ciprofloxacin with sputum cultures growing Pseudomonas and is also tested positive for RSV. Currently requiring oxygen at 2 L per nasal cannula. Afebrile. No nausea vomiting abdominal diarrhea. Patient is being continued Solu-Medrol 40 mg every 12 hourly and antibiotics in the form of ciprofloxacin. Also on DuoNebs. ID is on board. Laboratory data reviewed. 03/05/2022 Patient is currently resting in bed. Awake alert and oriented x3. Still co mplains of shortness of breath. Oxygen titrated down to 2 L via nasal cannula. Patient was tachycardic with heart rate 124 but improved now. Remains on antibiotics and IV Solu-Medrol. Patient be changed to by mouth. No complaints of chest pain. No fever no chills. Chest x-ray yesterday showed chronic emphysematous changes without acute pulmonary process. Patient remains on antibiotics in the form of ciprofloxacin. Laboratory data showed WBC 7.0 hemoglobin 11.6 and platelets 327 sodium 137 potassium 4.9 chloride 99 bicarb is 25.1 BUN 11.7 creatinine 0.5. And calcium 9.5. Anticipate discharge in next 24 to 48 hours. 03/06/2022 Patient is seen in follow-up today and has been seen daily during this hospitalization only in the bed. Patient encouraged once again to increase activity as tolerated and get up out of the bed more often and sit up in the chair. Patient continues on her 2 L which she chronically wears outpatient with no worsening of her shortness of breath. Patient reports she "feels crappy and not ready for discharge and would be right back in the ER" if she was discharged today. Patient began being extremely tearful during exam asking for 1 more day. Patient is maintained on oral Cipro with infectious disease following for Pseudomonas in the sputum and is maintained on IV steroids. Patient with minimal wheezing noted on exam we'll decrease the dose and start oral taper. Encouraged increase activity and oral intake. Patient is afebrile denies chest pain or palpitations. Patient did have chest pain reported a few nights ago and troponins and chest x-ray were negative. 03/07/2022 Patient is seen today continues to report she is feeling generally weak and unwell and does not feel ready to go home. Patient has been maintained on IV steroids for COPD exacerbation and treated for pneumonia along with sputum finalizing showing pseudomonas aeruginosa and patient is maintained on Cipro. Patient has been transitioned to oral steroids and continued on DuoNeb treatments. Patient has incentive spirometer at the bedside and encouraged to continue using at least 10 times every hour while awake. Patient encouraged to increase activity although continues to fail to do so will have physical therapy evaluate the patient. Discussed once again about discharge planning and patient would now like to discuss with case management about possible ECF for continued strength and mobility. Patient is significantly weak and has had prolonged hospitalization including 9 days in the hospital. Patient is afebrile denies chest pains currently denies worsening shortness of breath. No reports of nausea or vomiting and patient is tolerating diet. 03/08/2022 Patient is seen today and was initially supposed to go to rehab due to weakness although per her insurance, patient has run out of days to be able to go to ECF. Patient would have to pay out of pocket with a $200 daily and cannot afford and case management following arranging for home with home care. Patient was to be discharged today although does not have a portable tank and no right home. Will discharge in a.m. Patient is afebrile denies chest pain or worsening shortness of breath. Oral intake is fair and needs encouragement with meals. Review of Systems Constitutional: Reports fatigue, no reports of chills/sweats Cardio vascular: denied any chest pain, palpitations Gastrointestinal: denied any vomiting, diarrhea. Has some nausea occasionally. Pulmonary: Reports shortness of breath and weak cough with phlegm production Neurologic denied any new focal deficits, reports generally weak PHYSICAL EXAMINATION: GENERAL: The patient is alert and oriented x3, reports feeling lethargic and generalized weakness reporting ready for rehab . Well developed, well nourished. Currently on 3 L nasal cannula HEENT: Pupils are round and equally reacting to light. EOMI. No scleral icterus. No conjunctival pallor. Normocephalic, atraumatic. No pharyngeal erythema. No thyromegaly. CARDIOVASCULAR: S1 and S2 muffled PULMONARY: Lungs are diminished. with coarse rhonchi with improvement. ABDOMEN: Soft, nontender, nondistended, normoactive bowel sounds. No palpable organomegaly. MUSCULOSKELETAL: No joint swelling or deformity. EXTREMITIES: No cyanosis, clubbing, or pedal edema. NEUROLOGICAL: Gross neurological examination did not reveal any focal deficits. SKIN: No rashes. Assessment: Acute on chronic hypoxemic respiratory failure secondary to acute RSV infection with left lung base infiltrate and tracheobronchitis, currently on 2-3 nasal cannula, wears 2L chronically Gram positive bacteremia , most likely contaminant and repeat cultures are negative Sputum culture showing pseudomonas aeruginosa with some resistance Mild acute on chronic heart failure, systolic dysfunction History asthma/COPD with acute exacerbation secondary to above Hyponatremia initially hypovolemic with elevated BNP, improving Hypertension currently low Hyperlipidemia, history History of SVT Gastroesophageal reflux disease Anxiety/Depression Former smoker GI Prophylaxis DVT Prophylaxis Plan: Recommend continue supplemental oxygen and wean as tolerated. Patient is currently maintained on 3 L although chronically wears 2 L outpatient. Patient continues on DuoNeb treatments along with Symbicort and steroids being adjusted to oral and will continue taper Patient to continue with current medication regimen and complete a course of Cipro along with prednisone taper. Prescriptions were sent to pharmacy as patient initially was going to go to rehab although has run out of days per her insurance and unable to afford [id number] fees. Arranging for home with home care and patient also requiring transportation along with a oxygen tank of which she does not have an arranging for family to pick her up in the a.m. Patient will be discharged in a.m. Due to multiple complex medical issues, prognosis is guarded. The impression and plan of care has been dictated by Janell Luevano, Nurse Practitioner as directed. Dr. Mariely MD I have performed a history and examination and MDM of this patient, discussed the same with the dictator, and agree with the dictator's assessment and plan as written ,documented as a scribe. Based on total visit time, I have performed more than 50% of the visit. Objective - Vital Signs Vital signs: Vital Signs Temp 98.3 F 03/08/22 14:00 Pulse 80 03/08/22 14:55 Resp 16 03/08/22 14:00 BP 177/95 03/08/22 14:00 Pulse Ox 95 03/08/22 14:00 FiO2 Intake & Output 03/07/22 03/08/22 03/08/22 18:59 06:59 18:59 Intake Total 477 592 Output Total 600 1300 1999 Balance -051 -6855 -5948 Intake: Oral 477 592 Output: Urine 600 1300 1999 Other: Voiding Method Bedside Commode Bedside Commode # Voids 4 # Bowel Movements 1 1 - Labs CBC & Chem 7: 03/05/22 06:28 03/05/22 06:28
[2022-03-08] MEDS: ATORVASTATIN 20 MG TAB PO SCH (21:18)
[2022-03-08] MEDS: MONTELUKAST 10 MG TAB PO SCH (21:18)
[2022-03-09] MEDS: FORMOTEROL FUMARATE 20 MCG/2 ML NEBU INHALATION SCH (07:06)
[2022-03-09] MEDS: IPRATROPIUM-ALBUTEROL 3 ML NEB INHALATION SCH ×2 (07:06→10:58)
[2022-03-09] MEDS: SYMBICORT 160-4.5 MCG INHALER INHALATION SCH (07:07)
[2022-03-09] MEDS: ACETAMINOPHEN TAB 325 MG TAB PO PRN (08:36)
[2022-03-09] MEDS: PANTOPRAZOLE 40 MG/10 ML VIAL IVP SCH (08:37)
[2022-03-09] MEDS: HEPARIN SODIUM,PORCINE/PF 5,000 UNIT/0.5 ML SYRINGE SQ SCH (08:37)
[2022-03-09] MEDS: METOPROLOL TARTRATE 25 MG TAB PO SCH (08:37)
[2022-03-09] MEDS: SPIRONOLACTONE 25 MG TAB PO SCH (08:37)
[2022-03-09] MEDS: predniSONE 20 MG TAB PO SCH (08:37)
[2022-03-09] MEDS: ALPRAZolam 0.5 MG TAB PO PRN ×2 (08:37→13:47)
[2022-03-09] MEDS: CIPROFLOXACIN HCL 500 MG TAB PO SCH (08:38)
[2022-03-09] MEDS: SERTRALINE 100 MG TAB PO SCH (08:38)
[2022-03-09] MEDS: ONDANSETRON 4 MG/2 ML VIAL IVP PRN (08:47)
[2022-03-09 09:40] VITALS: RESP 18
[2022-03-09 13:40] VITALS: TEMP 97.9
[2022-03-09 13:46] VITALS: BP 148/87; PULSE 94
--- NOTE | 2022-03-09 21:28 | P.PN ---
Subjective Progress Note Date: 03/09/22 Principal diagnosis: Positive blood culture and RSV positive Patient is 77-year-old female with a past medical history significant for asthma/COPD GERD hypertension hyperlipidemia anxiety depression former smoker and is currently on her 2 L nasal cannula presenting to the ER for evaluation of increasing shortness of breath symptom has been going on for few days before presentation to the hospital , patient had been diagnosed with a COPD exacerbation this tested positive for RSV and did have a positive blood culture subsequently finalized as staph epi. On today's evaluation that is 03/09/2022, the patient continues to be afebrile, the patient is breathing comfortably and the patient is currently on 2 L nasal cannula the patient denies having any chest pain or worsening cough however bringing up sputum, patient had been complaining of some nausea but no vomiting no abdominal pain or diarrhea Objective - Vital Signs Vital signs: Vital Signs Temp 98.2 F 03/09/22 08:00 Pulse 85 03/09/22 08:00 Resp 18 03/09/22 08:00 BP 126/71 03/09/22 08:00 Pulse Ox 98 03/09/22 08:00 FiO2 Intake & Output 03/08/22 03/09/22 03/09/22 18:59 06:59 18:59 Intake Total 592 711 Output Total 1999 900 Balance -1408 -900 711 Intake: Oral 592 711 Output: Urine 1999 Other: Voiding Method Bedside Commode - Exam GENERAL DESCRIPTION: An elderly female lying in bed in no distress RESPIRATORY SYSTEM: Unlabored breathing , decreased intensity of breath sounds no wheeze HEART: S1 S2 regular rate and rhythm , ABDOMEN: Soft , no tenderness EXTREMITIES: No edema feet - Labs CBC & Chem 7: 03/05/22 06:28 03/05/22 06:28 Assessment and Plan (1) Positive blood culture Status: Acute Code(s): R78.81 - BACTEREMIA SNOMED Code(s): 458025064 (2) RSV infection Status: Acute Code(s): B33.8 - OTHER SPECIFIED VIRAL DISEASES SNOMED Code(s): 84514341 Plan: 1patient presented to hospital with increasing shortness of breath which is mo re likely to her COPD exacerbation possibly exacerbated by RSV clinically not behaving as secondary bacterial pneumonia as the patient did have a normal procalcitonin chest x-ray did not show any consolidation suspicious for bacterial pneumonia. 2positive blood culture with gram-positive cocci which has been finalized as staph epi and possible skin contamination , no need for vancomycin 3patient with purulent tracheobronchitis causing COPD exacerbation chest x-ray 03/04/2022 did not show any acute changes, sputum grow pseudomonas aeruginosa, patient did have slow clinical improvement she will continue with oral Cipro for another 5 days on discharge and close outpatient follow-up Time with Patient: Less than 30
--- NOTE | 2022-03-10 09:05 | CDI ---
Documentation Clarification Form Date: 03/10/2022 From: Rosa Arnold Admit Date: 02/26/2022 3:11:00 PM Patient Name: Cesia Fried Visit Number: [id number] Discharge Date: 03/09/2022 2:30:00 PM ATTENTION: The Clinical Documentation Specialists (CDI) and [facility] Coding Staff appreciate your assistance in clarifying documentation. Please respond to the clarification below the line at the bottom and electronically sign. The CDI & [facility] Coding staff will review the response and follow-up if needed. Please note: Queries are made part of the Legal Health Record. If you have any questions, please contact the author of this message via ITS. Dr. Nathaniel Lazo Conflicting documentation has been found in the medical record. As attending physician, please provide clarification. Per 03/07 PN Treated for pneumonia slong with sputum finalizing showing pseudomonas aeruginosa and patient maintained on Cipro Per 03/09 ID PN - Patient presented with increasing SOB likely to her COPD exacerbation possibly exacerbated by RSV clinically not behaving as secondary baceterial pneumonia as patient did have a normal procalcitonin and CXR. Patient with purulent tracheobronchitis. History/Risk Factors: COPD, on home O2, RSV Clinical Indicators: sputum positive for pseudomonas aeruginosa with some resistance Treatment: Cipro Please clarify which diagnosis is most appropriate: [ x ] Pseudomonas pneumonia [ ] Pseudomonas purulent tracheobronchits Specify as acute or chronic [ ] Other (please specify) [ ] Unable to determine MTDD
--- NOTE | 2022-03-11 11:04 | P.DS ---
Providers Date of admission: 02/26/22 15:11 Expected date of discharge: 03/08/22 Attending physician: Nathaniel Lazo Consults: 02/25/22 04:57 Consult Physician Routine Consulting Provider: Ja Smith Consult Reason/Comments: pneumonia Do you want consulting provider notified?: Yes, Notify in am 02/26/22 05:16 Consult Physician Routine Consulting Provider: Shahla Ordonez Consult Reason/Comments: bacteremia Do you want consulting provider notified?: Yes Primary care physician: Tory Gonzalez Hospital Course: Final diagnosis Acute purulent tracheobronchitis and Pseudomonas aeruginosa in the sputum Acute on chronic hypoxemic respiratory failure secondary to acute RSV infection with left lung base infiltrate and tracheobronchitis, currently on 2-3 nasal cannula, wears 2L chronically Gram positive bacteremia , most likely contaminant and repeat cultures are negative Mild acute on chronic heart failure, systolic dysfunction History asthma/COPD with acute exacerbation secondary to above Hyponatremia initially hypovolemic with elevated BNP, improving Hypertension currently low Hyperlipidemia, history History of SVT Gastroesophageal reflux disease Anxiety/Depression Former smoker GI Prophylaxis DVT Prophylaxis Discharge disposition Patient is being discharged in a stable condition with guarded prognosis to home with home care. Patient will follow-up with Dr. Tory Gonzalez in the outpatient setting upon discharge. Patient is to follow up with pulmonary DR Marcell Gonzalez as scheduled. Patient will continue on oral Cipro for the next 5 days to complete a course along with a prednisone taper. Total time taken is greater than 35 minutes. Hospital course This is a 77-year-old female who was recently admitted with COPD exacerbation, increased shortness of breath along found be RSV and had prolonged hospitalization. Patient slowly to improve initially wanted rehab on discharge although does not have enough days and would have to pay out of pocket and ca nnot afford. Patient will be going home with home care and patient does have support at the home. Sputum cultures finalized with pseudomonas aeruginosa with sensitivities to Cipro and anxiety following recommending Cipro to complete the course. Patient will continue on a prednisone taper as well. Patient did have an appointment with Dr. Gonzalez pulmonary after day of discharge although patient canceled the appointment herself and unsure why. Patient to follow-up with primary care provider and pulmonary outpatient. A copy of this dictation will be sent to the primary care provider. Currently no reports of chest pain, shortness of breath, or palpitations. Patient is afebrile. No reports of nausea or vomiting and patient is tolerating diet. Patient will be discharged home today. Prognosis is patient is high risk for readmissions and noncompliance with medications and follow-up. Physical exam: Gen: This is a 77-year-old female who is awake, alert and oriented 3, thin built, elderly appearing female HEENT: Head is atraumatic, normocephalic. Pupils equal, round. Sclerae is anicteric. NECK: Supple. No JVD. No lymphadenopathy. No thyromegaly. LUNGS: Diminished breath sounds bilaterally with no wheezes or rhonchi. No intercostal retractions. HEART: Regular rate and rhythm. No murmur. ABDOMEN: Soft. Bowel sounds are present. No masses. No tenderness. EXTREMITIES: No pedal edema. No calf tenderness. NEUROLOGICAL: Patient is awake, alert and oriented x3. Cranial nerves 2 through 12 are grossly intact. Please refer to medication reconciliation sheet for a list of medications. The impression and plan of care has been dictated by Janell Luevano, Nurse Practitioner as directed. Dr. Mariely MD I have performed a history and examination and MDM of this patient, discussed the same with the dictator, and agree with the dictator's assessment and plan as written ,documented as a scribe. Based on total visit time, I have performed more than 50% of the visit. Patient Condition at Discharge: Fair Plan - Discharge Summary New Discharge Prescriptions: New Ipratropium-Albuterol Nebulize [Duoneb 0.5 mg-3 mg/3 ml Soln] 3 ml INHALATION RT-Q2H PRN each PRN Reason: Shortness Of Breath Or Wheezing Ciprofloxacin HCl [Cipro] 500 mg PO Q12HR 5 Days #10 tablet predniSONE 10 mg PO DIRECTED #30 tab Sennosides [Senokot] 8.6 mg PO DAILY PRN tab PRN Reason: Constipation guaiFENesin [Mucinex] 600 mg PO Q12H 10 Days #20 tab ALPRAZolam [Xanax] 0.5 mg PO BID #6 tablet Continue Simvastatin [Zocor] 40 mg PO HS Montelukast Sodium [Singulair] 10 mg PO HS Sertraline [Zoloft] 200 mg PO BID Omeprazole 20 mg PO DAILY Budesonide-Formot 160-4.5 Mcg [Symbicort 160-4.5 Mcg Inhaler] 2 puff INHALATION RT-BID #1 inh Ipratropium-Albuterol Nebulize [Duoneb 0.5 mg-3 mg/3 ml Soln] 3 ml INHALATION RT-QID #100 each Spironolactone [Aldactone] 25 mg PO DAILY #30 tab Nitroglycerin Sl Tabs [Nitrostat] 0.4 mg SUBLINGUAL Q5M PRN #30 tab PRN Reason: Chest Pain Metoprolol Succinate (ER) [Toprol XL] 50 mg PO DAILY Albuterol Sulfate [Ventolin HFA] 2 puff INHALATION RT-Q4H PRN PRN Reason: Shortness Of Breath Ipratropium/Albuterol Sulfate [Combivent Respimat Inhaler] 1 puff INHALATION RT-QID Acetaminophen [Tylenol Extra Strength] 1,000 mg PO Q6H PRN PRN Reason: Fever And/ Or Pain Ipratropium-Albuterol Nebulize [Duoneb 0.5 mg-3 mg/3 ml Soln] 3 ml INHALATION RT-Q2H PRN each PRN Reason: Shortness Of Breath Or Wheezing Ondansetron [Zofran] 4 mg PO Q8HR PRN #20 tab PRN Reason: Nausea Discontinued lisinopriL [Zestril] 2.5 mg PO DAILY #90 tab ALPRAZolam [Xanax] 0.5 mg PO TID PRN #10 tab PRN Reason: Anxiety Discharge Medication List Simvastatin [Zocor] 40 mg PO HS 02/20/15 [History] Montelukast Sodium [Singulair] 10 mg PO HS 03/01/16 [History] Albuterol Sulfate [Ventolin HFA] 2 puff INHALATION RT-Q4H PRN 06/20/21 [History] Ipratropium/Albuterol Sulfate [Combivent Respimat Inhaler] 1 puff INHALATION RT- QID 06/20/21 [History] Omeprazole 20 mg PO DAILY 06/20/21 [History] Sertraline [Zoloft] 200 mg PO BID 06/20/21 [History] Acetaminophen [Tylenol Extra Strength] 1,000 mg PO Q6H PRN 11/08/21 [History] Budesonide-Formot 160-4.5 Mcg [Symbicort 160-4.5 Mcg Inhaler] 2 puff INHALATION RT-BID #1 inh 12/20/21 [Rx] Ipratropium-Albuterol Nebulize [Duoneb 0.5 mg-3 mg/3 ml Soln] 3 ml INHALATION RT-Q2H PRN each 12/22/21 [Rx] Ipratropium-Albuterol Nebulize [Duoneb 0.5 mg-3 mg/3 ml Soln] 3 ml INHALATION RT-QID #100 each 12/22/21 [Rx] Ondansetron [Zofran] 4 mg PO Q8HR PRN #20 tab 12/22/21 [Rx] Nitroglycerin Sl Tabs [Nitrostat] 0.4 mg SUBLINGUAL Q5M PRN #30 tab 12/28/21 [Rx] Spironolactone [Aldactone] 25 mg PO DAILY #30 tab 12/28/21 [Rx] Metoprolol Succinate (ER) [Toprol XL] 50 mg PO DAILY 02/25/22 [History] Ipratropium-Albuterol Nebulize [Duoneb 0.5 mg-3 mg/3 ml Soln] 3 ml INHALATION RT-Q2H PRN each 03/07/22 [Rx] Sennosides [Senokot] 8.6 mg PO DAILY PRN tab 03/07/22 [Rx] Ciprofloxacin HCl [Cipro] 500 mg PO Q12HR 5 Days #10 tablet 03/08/22 [Rx] guaiFENesin [Mucinex] 600 mg PO Q12H 10 Days #20 tab 03/08/22 [Rx] predniSONE 10 mg PO DIRECTED #30 tab 03/08/22 [Rx] ALPRAZolam [Xanax] 0.5 mg PO BID #6 tablet 03/09/22 [Rx] Follow up Appointment(s)/Referral(s): Tory Gonzalez MD [Primary Care Provider] - 1-2 days [facility], [NON-STAFF] - As Needed Nathanael Gonzalez MD [STAFF PHYSICIAN] - 03/10/22 10:00 am Patient Instructions/Handouts: Respiratory Syncytial Virus (DC), Pneumonitis (DC), COPD (Chronic Obstructive Pulmonary Disease) (DC) Activity/Diet/Wound Care/Special Instructions: Activity as tolerated Continue taking antibiotics for 5 days to complete a course Continue prednisone taper Continue breathing treatments along with inhalers Follow-up primary care provider outpatient Follow-up pulmonary outpatient Discharge Disposition: HOME WITH HOME HEALTH SERVICES
== END 2022-03-09 14:30 | disposition home health service (06) | DRG 177 ==
LOC: EC 00:22 → 6NMEDSUR 04:37 → OBSVTOIN 02-26 15:11
PROVIDERS: ADMIT Internal Medicine; ATTEND Internal Medicine
DX: J15.1 Pneumonia due to Pseudomonas (principal); I50.23 Acute on chronic systolic (congestive) heart failure; J96.21 Acute and chronic respiratory failure with hypoxia; J44.1 Chronic obstructive pulmonary disease with (acute) exacerbation; E87.1 Hypo-osmolality and hyponatremia; I47.1 Supraventricular tachycardia; J44.0 Chronic obstructive pulmonary disease with (acute) lower respiratory infection; B97.4 Respiratory syncytial virus as the cause of diseases classified elsewhere; B96.5 Pseudomonas (aeruginosa) (mallei) (pseudomallei) as the cause of diseases classified elsewhere; E78.5 Hyperlipidemia, unspecified; F32.A Depression, unspecified; F41.9 Anxiety disorder, unspecified; I11.0 Hypertensive heart disease with heart failure; Z99.81 Dependence on supplemental oxygen; E86.1 Hypovolemia; K21.9 Gastro-esophageal reflux disease without esophagitis; Z87.01 Personal history of pneumonia (recurrent); Z20.822 Contact with and (suspected) exposure to COVID-19; Z79.51 Long term (current) use of inhaled steroids; Z79.82 Long term (current) use of aspirin; Z79.899 Other long term (current) drug therapy; Z82.49 Family history of ischemic heart disease and other diseases of the circulatory system; Z28.310 Unvaccinated for COVID-19; Z28.21 Immunization not carried out because of patient refusal
CPT/HCPCS: 36415; 71045; 71046; 80048; 80053; 81001; 83605; 83735; 83880; 84145; 84484; 85025; 85610; 85730; 86140; 87040; 87070; 87077; 87186; 87205; 87636; 93005; 94640; 94760; 96361; 96365; 96366; 96368; 96375; 99285

== ENCOUNTER 2022-07-25 01:03 | Emergency (ER) | payer MEDICARE, OTHER ==
--- NOTE | 2022-07-25 01:10 | ED ---
Fall HPI - General Chief Complaint: Fall Stated Complaint: Fall Time Seen by Provider: 07/25/22 01:10 - History of Present Illness Initial Comments: Patient is a 77-year-old female presenting to the emergency room via EMS after becoming dizzy and stumbling causing her to fall while attempting to turn the light to go to the restroom prior to her arrival to the emergency room. She states that she landed on her right buttocks/hip region and immediately she had swelling in the buttocks region along with some tenderness. She was given fentanyl by EMS with some improvement in her pain however she reports that the pain is coming back. She denies any injury to any other location including any head trauma. She denies being on any blood thinners including the use of a daily aspirin. She reports that the time of her dizziness and stumbling she was wearing her oxygen which she is on continuously for severe COPD. She denies any other complaints or concerns at this time. She denies any chest pain, shortness of breath, abdominal pain, nausea, vomiting, left-sided hip pain, upper extremity pain, neck pain, headache, blurred or double vision or focal weaknesses. She has a past medical history in addition to her COPD of CAD, hypertension, hyperlipidemia, GERD and anemia. - Related Data Home Medications Medication Instructions Recorded Confirmed Simvastatin [Zocor] 40 mg PO HS 02/20/15 02/25/22 Montelukast Sodium [Singulair] 10 mg PO HS 03/01/16 02/25/22 Albuterol Sulfate [Ventolin HFA] 2 puff INHALATION RT-Q4H PRN 06/20/21 02/25/22 Ipratropium/Albuterol Sulfate 1 puff INHALATION RT-QID 06/20/21 02/25/22 [Combivent Respimat Inhaler] Omeprazole 20 mg PO DAILY 06/20/21 02/25/22 Sertraline [Zoloft] 200 mg PO BID 06/20/21 02/25/22 Acetaminophen [Tylenol Extra 1,000 mg PO Q6H PRN 11/08/21 02/25/22 Strength] Metoprolol Succinate (ER) [Toprol 50 mg PO DAILY 02/25/22 02/25/22 XL] Previous Rx's Medication Instructions Recorded Budesonide-Formot 160-4.5 Mcg 2 puff INHALATION RT-BID #1 inh 12/20/21 [Symbicort 160-4.5 Mcg Inhaler] Ipratropium-Albuterol Nebulize 3 ml INHALATION RT-Q2H PRN each 12/22/21 [Duoneb 0.5 mg-3 mg/3 ml Soln] Ipratropium-Albuterol Nebulize 3 ml INHALATION RT-QID #100 each 12/22/21 [Duoneb 0.5 mg-3 mg/3 ml Soln] Ondansetron [Zofran] 4 mg PO Q8HR PRN #20 tab 12/22/21 Nitroglycerin Sl Tabs [Nitrostat] 0.4 mg SUBLINGUAL Q5M PRN #30 tab 12/28/21 Spironolactone [Aldactone] 25 mg PO DAILY #30 tab 12/28/21 Ipratropium-Albuterol Nebulize 3 ml INHALATION RT-Q2H PRN each 03/07/22 [Duoneb 0.5 mg-3 mg/3 ml Soln] Sennosides [Senokot] 8.6 mg PO DAILY PRN tab 03/07/22 Ciprofloxacin HCl [Cipro] 500 mg PO Q12HR 5 Days #10 tablet 03/08/22 guaiFENesin [Mucinex] 600 mg PO Q12H 10 Days #20 tab 03/08/22 predniSONE 10 mg PO DIRECTED #30 tab 03/08/22 ALPRAZolam [Xanax] 0.5 mg PO BID #6 tablet 03/09/22 Allergies Allergy/AdvReac Type Severity Reaction Status Date / Time No Known Allergies Allergy Verified 07/25/22 01:13 Review of Systems ROS Statement: Those systems with pertinent positive or pertinent negative responses have been documented in the HPI. ROS Other: All systems not noted in ROS Statement are negative. Past Medical History Past Medical History: Asthma, Chest Pain / Angina, COPD, GERD/Reflux, Hyperlipidemia, Hypertension, Pneumonia Additional Past Medical History / Comment(s): oxygen [place] @2L continuous, gallstones, pernicious anemia History of Any Multi-Drug Resistant Organisms: Other MDRO Past Surgical History: Hernia Repair, Joint Replacement, Orthopedic Surgery, Tonsillectomy Additional Past Surgical History / Comment(s): left elbow surgery, abscess in stomach area, abdominial scar tissue, tamie oophorectomy, left knee surgery, left hip replacement Past Anesthesia/Blood Transfusion Reactions: No Reported Reaction Past Psychological History: Anxiety, Depression Smoking Status: Former smoker Past Alcohol Use History: None Reported Additional Past Alcohol Use History / Comment(s): quit smoking 2001, smoked since age 18, 2 PPD Past Drug Use History: None Reported - Past Family History Mother Family Medical History: No Reported History Additional Family Medical History / Comment(s): MS Father Family Medical History: CVA/TIA, Myocardial Infarction ([place]) Additional Family Medical History / Comment(s): ETOH General Exam Limitations: no limitations General appearance: alert, in no apparent distress Head exam: Present: atraumatic, normocephalic, normal inspection Eye exam: Present: normal appearance, PERRL, EOMI. Absent: scleral icterus, conjunctival injection, periorbital swelling ENT exam: Present: normal exam, mucous membranes moist Neck exam: Present: normal inspection, full ROM. Absent: tenderness Respiratory exam: Present: decreased breath sounds, other (Barrel chest. 2 L nasal cannula intact). Absent: wheezes Cardiovascular Exam: Present: regular rate, normal rhythm, normal heart sounds. Absent: systolic murmur, diastolic murmur, rubs, gallop, clicks GI/Abdominal exam: Present: soft, normal bowel sounds. Absent: distended, tenderness, guarding, rebound, rigid Extremities exam: Present: normal inspection Right Hip exam: Present: full ROM. Absent: tenderness, abrasion, laceration, ecchymosis, deformity, crepitus, dislocation, erythema, external rotation, internal rotation, shortening Neurovascular tendon exam: Present: no vascular compromise Back exam: Present: other (Mid upper buttocks with localized swelling without evidence of hematoma or ecchymosis.). Absent: tenderness, muscle spasm, paraspinal tenderness, vertebral tenderness Neurological exam: Present: alert, oriented X3, CN II-XII intact Psychiatric exam: Present: normal affect, normal mood Skin exam: Present: warm, dry, intact, normal color. Absent: rash Course Vital Signs 07/25/22 01:06 Temperature 97.1 F L Pulse Rate 75 Respiratory 16 Rate Blood Pressure 128/85 O2 Sat by Pulse 93 L Oximetry Medical Decision Making - Medical Decision Making Was pt. sent in by a medical professional or institution (, PA, [employer], urgent care, hospital, or custodial...) When possible be specific @ -No Did you speak to anyone other than the patient for history (EMS, parent, family, police, friend...)? What history was obtained from this source @ -He has, spoke with nurse who received details regarding presenting illness from EMS. Did you review nursing and triage notes (agree or disagree)? Why? @ -I reviewed and agree with nursing and triage notes Were old charts reviewed (outside hosp., previous admission, EMS record, old EKG , old radiological studies, urgent care reports/EKG's, custodial records)? Report findings @ -Yes, I reviewed most recent laboratory studies on file from 07/05/2022. Differential Diagnosis (chest pain, altered mental status, abdominal pain women, abdominal pain men, vaginal bleeding, weakness, fever, dyspnea, syncope, headache, dizziness, GI bleed, back pain, seizure, CVA, palpatations, mental health, musculoskeletal)? @ -Differential Musculoskeletal Muscular strain, contusion, ligament sprain, fracture, arthritis, septic arthritis, bursitis, cellulitis, muscle spasm, nerve compression, DVT, arterial occlusion, herpes zoster, electrolyte abnormality, tumor.... This is not meant to be in all inclusive list EKG interpreted by me (3pts min.). @ -None done X-rays interpreted by me (1pt min.). @ -X-ray bilateral hip and AP pelvis: Left hip replacement intact without dislocation. Right hip joint narrowing. No evidence of fracture or dislocations. CT interpreted by me (1pt min.). @ -CT of the brain and cervical spine: No hemorrhage mass effect or shift. No cervical spine fracture or subluxation. Per radiologist posterior scalp swelling noted. U/S interpreted by me (1pt. min.). @ -None done What testing was considered but not performed or refused? (CT, X-rays, U/S, labs)? Why? @ -None What meds were considered but not given or refused? Why? @ -None Did you discuss the management of the patient with other professionals (professionals i.e. , PA, [employer], lab, RT, psych nurse, social and human services assistant, employment advisor, teacher, interface control officer, rn case manager)? Give summary @ -No Was smoking cessation discussed for >3mins.? @ -No Was critical care preformed (if so, how long)? @ -No Were there social determinants of health that impacted care today? How? (Homelessness, low income, unemployed, alcoholism, drug addiction, transportation, low edu. Level, literacy, decrease access to med. care, custodial, rehab)? @ -No Was there de-escalation of care discussed even if they declined (Discuss DNR or withdrawal of care, Hospice)? DNR status @ -No What co-morbidities impacted this encounter? (DM, HTN, Smoking, COPD, CAD, Cancer, CVA, ARF, Chemo, Hep., AIDS, mental health diagnosis, sleep apnea, morbid obesity)? @ -None Was patient admitted / discharged? Hospital course, mention meds given and route, prescriptions, significant lab abnormalities, going to OR and other pert inent info. @ -77-year-old female presenting to the emergency room via EMS after becoming dizzy and stumbling causing her to fall while attempting to turn the light to go to the restroom prior to her arrival to the emergency room. She states that she landed on her right buttocks/hip region and immediately she had swelling in the buttocks region along with some tenderness. Despite no head trauma and lack of blood thinners and no loss of consciousness the setting of a dvanced age and dizziness prior to fall will obtain CT of the brain along with cervical spine. Will obtain x-ray of the bilateral hips and AP pelvis. Will check labs of CBC, CMP and coags and give morphine for pain. Pain medication caused nausea will give zofran. CBC results shows no abnormalities. Coags normal. CMP shows low sodium 130 without significant change compared to most recent lab. Chloride low 96, renal function normal, glucose elevated 120 bilirubin low 0.1 with normal AST and ALT. protein and albumin levels low. CT of the brain and cervical spine without any acute intracranial pr ocess cervical spine fracture or subluxation. Xray hip and pelvis without acute fracture. Pain returned after x-rays and CT scan and improved with addition 2 mg of morphine. Work up findings discussed with patient. No indication for further workup including diagnostic imaging or lab studies. Due to pharmacy closure at time of discharge will give tramadol starter pack to utilize for pain and zofran starter pack to treat any nausea due to pain medications. Encouraged slow position changes and fall precautions. Advised follow up with primary care provider. Questions and concerns answer. Return parameters to the ER discussed. Will discharge home in stable condition with Tramadol starter pack to utilize in addition to over the counter tylenol for pain from fall advising follow up with PCP. Undiagnosed new problem with uncertain prognosis? @ -No Drug Therapy requiring intensive monitoring for toxicity (Heparin, Nitro, Insulin, Cardizem)? @ -No Were any procedures done? @ -No Diagnosis/symptom? @ -Fall Acute, or Chronic, or Acute on Chronic? @ -Acute Uncomplicated (without systemic symptoms) or Complicated (systemic symptoms)? @ -Uncomplicated. Side effects of treatment? @ -No Exacerbation, Progression, or Severe Exacerbation? @ -No Poses a threat to life or bodily function? How? (Chest pain, [place], [place], pneumonia, PE, COPD, DKA, ARF, appy, cholecystitis, CVA, Diverticulitis, Homicidal, Suicidal, threat to staff... and all critical care pts) @ -No Case discussed Dr. Gross. - Lab Data Result diagrams: 07/25/22 01:26 07/25/22 01:26 Lab Results 07/25/22 07/25/22 07/25/22 Range/Units 01:26 01:26 01:26 WBC 10.2 (3.8-10.6) k/uL RBC 4.33 (3.80-5.40) m/uL Hgb 12.0 (11.4-16.0) gm/dL Hct 37.0 (34.0-46.0) % MCV 85.6 (80.0-100.0) fL MCH 27.8 (25.0-35.0) pg MCHC 32.4 (31.0-37.0) g/dL RDW 13.5 (11.5-15.5) % Plt Count 346 (150-450) k/uL MPV 7.0 Neutrophils % 75 % Lymphocytes % 17 % Monocytes % 4 % Eosinophils % 2 % Basophils % 0 % Neutrophils # 7.7 (1.3-7.7) k/uL Lymphocytes # 1.7 (1.0-4.8) k/uL Monocytes # 0.5 (0-1.0) k/uL Eosinophils # 0.2 (0-0.7) k/uL Basophils # 0.1 (0-0.2) k/uL PT 10.1 (9.0-12.0) sec INR 0.9 (<1.2) Sodium 130 L (137-145) mmol/L Potassium 4.4 (3.5-5.1) mmol/L Chloride 96 L (98-107) mmol/L Carbon Dioxide 27 (22-30) mmol/L Anion Gap 7 mmol/L BUN 12 (7-17) mg/dL Creatinine 0.56 (0.52-1.04) mg/dL Est GFR (CKD-EPI)AfAm >90 (>60 ml/min/1.73 sqM) Est GFR (CKD-EPI)NonAf >90 (>60 ml/min/1.73 sqM) Glucose 120 H (74-99) mg/dL Calcium 8.6 (8.4-10.2) mg/dL Total Bilirubin 0.1 L (0.2-1.3) mg/dL AST 22 (14-36) U/L ALT 22 (4-34) U/L Alkaline Phosphatase 46 (38-126) U/L Total Protein 5.5 L (6.3-8.2) g/dL Albumin 3.2 L (3.5-5.0) g/dL - Radiology Data Radiology results: report reviewed, image reviewed Disposition Clinical Impression: Fall, Contusion of buttock Disposition: HOME SELF-CARE Condition: Stable Instructions (If sedation given, give patient instructions): Fall Prevention (ED) Additional Instructions: Utilize tramadol starter pack for pain as needed, may utilize Zofran starter pack for nausea if the pain medication causes nausea. Please change positions slowly and stay well hydrated. Follow-up with your primary care provider. Please return to the Emergency Department if symptoms worsen or any other concerns. Is patient prescribed a controlled substance at d/c from ED?: No Referrals: Tory Gonzalez MD [Primary Care Provider] - 1-2 days Time of Disposition: 03:55
[2022-07-25 01:14] VITALS: BP 128/85; PULSE 75; RESP 16; TEMP 97.1
[2022-07-25] MEDS ORDERED: MORPHINE SULFATE 4 MG/ML SYRINGE IVP STA (01:16)
[2022-07-25 01:55] LABS: Basophils # (A) 0.1 k/uL (0-0.2); Basophils % (A) 0 %; Eosinophils # (A) 0.2 k/uL (0-0.7); Eosinophils % (A) 2 %; Lymphocytes # (A) 1.7 k/uL (1.0-4.8); Lymphocytes % (A) 17 %; MCH 27.8 pg (25.0-35.0); MCHC 32.4 g/dL (31.0-37.0); MCV 85.6 fL (80.0-100.0); Monocytes # (A) 0.5 k/uL (0-1.0); Monocytes % (A) 4 %; Neutrophils # (A) 7.7 k/uL (1.3-7.7); Neutrophils % (A) 75 %; Platelet Count 346 k/uL (150-450); RBC 4.33 m/uL (3.80-5.40); RDW 13.5 % (11.5-15.5); WBC 10.2 k/uL (3.8-10.6)
[2022-07-25 02:18] LABS: INR 0.9 (<1.2); Prothrombin Time 10.1 sec (9.0-12.0)
[2022-07-25 02:24] LABS: ALT 22 U/L (4-34); AST 22 U/L (14-36); African American GFR (CKD) >90 (>60 ml/min/1.73 sqM); Albumin 3.2 g/dL (3.5-5.0); Alkaline Phosphatase 46 U/L (38-126); Anion Gap 7 mmol/L; Blood Urea Nitrogen 12 mg/dL (7-17); Calcium 8.6 mg/dL (8.4-10.2); Carbon Dioxide 27 mmol/L (22-30); Chloride 96 mmol/L (98-107); Glucose 120 mg/dL (74-99); Non-African American GFR(CKD) >90 (>60 ml/min/1.73 sqM); Potassium 4.4 mmol/L (3.5-5.1); Sodium 130 mmol/L (137-145); Total Bilirubin 0.1 mg/dL (0.2-1.3); Total Protein 5.5 g/dL (6.3-8.2)
--- NOTE | 2022-07-25 02:52 | CT ---
EXAM: CT Head Without Intravenous Contrast CLINICAL HISTORY: ITS.REASON CT Reason: fall with dizziness TECHNIQUE: Axial computed tomography images of the head/brain without intravenous contrast. CTDI is 45.2 mGy and DLP is 1051.5 mGy-cm. This CT exam was performed using one or more of the following dose reduction techniques: automated exposure control, adjustment of the mA and/or kV according to patient size, and/or use of iterative reconstruction technique. COMPARISON: No relevant prior studies available. FINDINGS: Brain: No hemorrhage or mass effect. Ventricles: No hydrocephalus. Bones/joints: Unremarkable. Soft tissues: Posterior scalp swelling. Sinuses: No air fluid level. Mastoid air cells: Clear. IMPRESSION: No acute hemorrhage, hydrocephalus, or mass effect. EXAM: CT Cervical Spine Without Intravenous Contrast CLINICAL HISTORY: ITS.REASON CT Reason: fall with dizziness TECHNIQUE: Axial computed tomography images of the cervical spine without intravenous contrast. CTDI is 9.6 mGy and DLP is 284.2 mGy-cm. This CT exam was performed using one or more of the following dose reduction techniques: automated exposure control, adjustment of the mA and/or kV according to patient size, and/or use of iterative reconstruction technique. COMPARISON: No relevant prior studies available. FINDINGS: Vertebrae: No acute fracture. Osteopenia. Discs/spinal canal/neural foramina: degenerative changes. Soft tissues: No prevertebral swelling. IMPRESSION: No acute fracture or subluxation.
--- NOTE | 2022-07-25 03:25 | XR ---
EXAM: XR Bilateral Hips With Pelvis When Performed, 4 or More Views CLINICAL HISTORY: Fall TECHNIQUE: Four or more views of the bilateral hips with pelvis when performed. COMPARISON: No relevant prior studies available. FINDINGS: Left hip bipolar arthroplasty in near-anatomic position without dislocation. Degenerative changes of the right hip with joint space narrowing and mild sclerosis. No acute fracture or dislocation. Bones are osteopenic. Degenerative changes lower lumbar spine. Pelvic calcifications compatible with fibroids. IMPRESSION: No acute post-traumatic abnormality. Status post left hip bipolar arthroplasty. Degenerative changes right hip and lumbar spine. Calcified uterine fibroids.
[2022-07-25] MEDS ORDERED: MORPHINE SULFATE 2 MG/ML SYRINGE IVP STA (03:35)
[2022-07-25] MEDS ORDERED: traMADol 50 MG STARTER PACK 3 TAB BTL PO STA (03:47)
[2022-07-25] MEDS ORDERED: ONDANSETRON 4 MG/2 ML VIAL IVP STA (03:47)
[2022-07-25] MEDS ORDERED: ONDANSETRON 4 MG ODT STARTER PACK 2 TAB BTL PO STA (03:47)
== END 2022-07-25 05:51 | disposition home or self-care (01) ==
LOC: EC 01:03
DX: S30.0XXA Contusion of lower back and pelvis, initial encounter (principal); J44.9 Chronic obstructive pulmonary disease, unspecified; K21.9 Gastro-esophageal reflux disease without esophagitis; E78.5 Hyperlipidemia, unspecified; I10 Essential (primary) hypertension; F41.9 Anxiety disorder, unspecified; F32.A Depression, unspecified; Z87.891 Personal history of nicotine dependence; Z79.899 Other long term (current) drug therapy; X58.XXXA Exposure to other specified factors, initial encounter
CPT/HCPCS: 36415; 80053; 85025; 85610; 73521; 72125; 70450; 99285; 96374; 96375; 96376; J2270 ×2; J2405; S0119

== ENCOUNTER 2023-02-21 10:18 | Inpatient (IN) | payer MEDICARE, OTHER ==
[2023-02-21] MEDS ORDERED: MAGNESIUM SULFATE-D5W PMX 1 GM in DEXTROSE/WATER 1 100ML.BAG IVPB STA (10:20)
[2023-02-21] MEDS ORDERED: SODIUM CHLORIDE 0.9% 1,000 ML IV STA ×3 (10:20→11:54)
[2023-02-21] MEDS ORDERED: IPRATROPIUM-ALBUTEROL 3 ML NEB INHALATION STA ×3 (10:20→12:12)
[2023-02-21 11:16] LABS: Basophils % (A) 0 %; Eosinophils # (A) 0.1 k/uL (0-0.7); Eosinophils % (A) 0 %; HGB 13.4 gm/dL (11.4-16.0); Hypochromasia Slight; Lymphocytes # (A) 0.7 k/uL (1.0-4.8); Lymphocytes % (A) 6 %; MCH 27.2 pg (25.0-35.0); MCHC 30.4 g/dL (31.0-37.0); MCV 89.8 fL (80.0-100.0); Mean Platelet Volume 7.5; Monocytes # (A) 0.4 k/uL (0-1.0); Monocytes % (A) 4 %; Neutrophils # (A) 9.5 k/uL (1.3-7.7); Neutrophils % (A) 88 %; Platelet Count 377 k/uL (150-450); RDW 14.5 % (11.5-15.5); WBC 10.8 k/uL (3.8-10.6)
[2023-02-21 11:29] LABS: INR 0.9 (<1.2); Prothrombin Time 9.6 sec (10.0-12.5)
[2023-02-21 11:35] LABS: Appearance,Urine Clear (Clear); Bilirubin,Urine Negative (Negative); Blood,Urine Negative (Negative); Color,Urine Colorless; Glucose,Urine (UA) Negative (Negative); Ketones,Urine Negative (Negative); Leukocyte Esterase,Urine Negative (Negative); Nitrite,Urine Negative (Negative); Protein,Urine Negative (Negative); Specific Gravity,Urine 1.011 (1.001-1.035); Urobilinogen,Urine <2.0 mg/dL (<2.0)
[2023-02-21 11:43] LABS: ALT 17 U/L (4-34); AST 24 U/L (14-36); African American GFR (CKD) >90 (>60 ml/min/1.73 sqM); Albumin 3.9 g/dL (3.5-5.0); Alkaline Phosphatase 67 U/L (38-126); Anion Gap 10 mmol/L; Blood Urea Nitrogen 11 mg/dL (7-17); Calcium 9.5 mg/dL (8.4-10.2); Carbon Dioxide 27 mmol/L (22-30); Chloride 102 mmol/L (98-107); Glucose 114 mg/dL (74-99); Magnesium 2.1 mg/dL (1.6-2.3); Non-African American GFR(CKD) >90 (>60 ml/min/1.73 sqM); Potassium 4.9 mmol/L (3.5-5.1); Sodium 139 mmol/L (137-145); Total Bilirubin 0.4 mg/dL (0.2-1.3); Total Protein 6.9 g/dL (6.3-8.2)
--- NOTE | 2023-02-21 11:50 | XR ---
EXAMINATION TYPE: XR chest 2V DATE OF EXAM: 02/21/2023 11:37 AM CLINICAL INDICATION:Female, 78 years old with history of difficulty breathing; COMPARISON: Chest radiographs from 03/04/2022. TECHNIQUE: XR chest 2V Frontal and lateral views of the chest. FINDINGS: Lungs/Pleura: Left lower lobe airspace opacities are present. No pneumothorax visualized. No pleural effusion. Pulmonary vascularity: Unremarkable. Heart/mediastinum: Cardiomediastinal silhouette is unremarkable. Musculoskeletal: No acute osseous pathology. IMPRESSION: Left lower lobe airspace opacities correlate for pneumonia
[2023-02-21] MEDS ORDERED: AZITHROMYCIN 500 MG in SODIUM CHLORIDE 0.9% 250 ML IVPB STA (11:54)
[2023-02-21] MEDS ORDERED: PNEUMONIA PROTOCOL UTILIZED 1 EACH MISC PO PRN (11:54)
[2023-02-21] MEDS ORDERED: NALOXONE 0.4 MG/ML 1 ML VIAL IV PRN (12:13)
[2023-02-21] MEDS ORDERED: KETOROLAC 15 MG/ML 1 ML VIAL IVP STA (12:15)
[2023-02-21] MEDS ORDERED: METOCLOPRAMIDE 5 MG/ML 2 ML VIAL IVP STA (12:15)
[2023-02-21] MEDS ORDERED: LORazepam 2 MG/ML INJ IV STA (12:15)
--- NOTE | 2023-02-21 12:49 | ED ---
General Adult HPI - General Chief complaint: Shortness of Breath Stated complaint: KERI Time Seen by Provider: 02/21/23 10:19 Source: patient, EMS, RN notes reviewed, old records reviewed Mode of arrival: EMS Limitations: physical limitation - History of Present Illness Initial comments: Patient is a 78 female female with past medical history remarkable for chronic hypoxic respiratory failure on 2 L nasal cannula at home, COPD, hypertension presents emergency Department complaining of increased difficulty breathing starting this morning at 4 AM. Also having an increased cough. Does not believe it is productive. States she attempted at home breathing treatments without much success. Called EMS for further evaluation and taken to the emergency department. Denies chest pain, abdominal pain, nausea, vomiting. Denies fevers or chills. No known sick contacts. States she has never required BiPAP before. Presents for further evaluation. - Related Data Home Medications Medication Instructions Recorded Confirmed Simvastatin [Zocor] 40 mg PO HS 02/20/15 02/21/23 Montelukast Sodium [Singulair] 10 mg PO HS 03/01/16 02/21/23 Albuterol Sulfate [Ventolin HFA] 2 puff INHALATION RT-Q4H PRN 06/20/21 02/21/23 Ipratropium/Albuterol Sulfate 1 puff INHALATION RT-QID 06/20/21 02/21/23 [Combivent Respimat Inhaler] Omeprazole 20 mg PO DAILY 06/20/21 02/21/23 Sertraline [Zoloft] 200 mg PO DAILY 06/20/21 02/21/23 Acetaminophen [Tylenol Extra 1,000 mg PO Q6H PRN 11/08/21 02/21/23 Strength] Metoprolol Succinate (ER) [Toprol 50 mg PO DAILY 02/25/22 02/21/23 XL] ALPRAZolam [Xanax] 0.5 mg PO TID PRN 02/21/23 02/21/23 Ipratropium-Albuterol Nebulize 3 ml INHALATION RT-QID PRN 02/21/23 02/21/23 [Duoneb 0.5 mg-3 mg/3 ml Soln] guaiFENesin [Mucinex] 600 mg PO Q12H PRN 02/21/23 02/21/23 Previous Rx's Medication Instructions Recorded Budesonide-Formot 160-4.5 Mcg 2 puff INHALATION RT-BID #1 inh 12/20/21 [Symbicort 160-4.5 Mcg Inhaler] Nitroglycerin Sl Tabs [Nitrostat] 0.4 mg SUBLINGUAL Q5M PRN #30 tab 12/28/21 Spironolactone [Aldactone] 25 mg PO DAILY #30 tab 12/28/21 Allergies Allergy/AdvReac Type Severity Reaction Status Date / Time No Known Allergies Allergy Verified 02/21/23 11:54 Review of Systems ROS Statement: Those systems with pertinent positive or pertinent negative responses have been documented in the HPI. Review of Systems: CONST: Denies fever EYES: Denies blurry vision ENT: Denies nasal congestion C/V: Denies Chest pain RESP: Endorses shortness breath, wheezing GI: Denies abdominal pain : Denies dysuria SKIN: Denies rash. MSK: Denies joint pain. NEURO: Denies headache ROS Other: All systems not noted in ROS Statement are negative. Past Medical History Past Medical History: Asthma, Chest Pain / Angina, COPD, GERD/Reflux, Hyperlipidemia, Hypertension, Pneumonia Additional Past Medical History / Comment(s): oxygen [place] @2L continuous, gallstones, pernicious anemia History of Any Multi-Drug Resistant Organisms: Other MDRO Past Surgical History: Hernia Repair, Joint Replacement, Orthopedic Surgery, Tonsillectomy Additional Past Surgical History / Comment(s): left elbow surgery, abscess in stomach area, abdominial scar tissue, tamie oophorectomy, left knee surgery, left hip replacement Past Anesthesia/Blood Transfusion Reactions: No Reported Reaction Past Psychological History: Anxiety, Depression Smoking Status: Former smoker Past Alcohol Use History: None Reported Past Drug Use History: None Reported - Past Family History Mother Family Medical History: No Reported History Additional Family Medical History / Comment(s): MS Father Family Medical History: CVA/TIA, Myocardial Infarction ([place]) Additional Family Medical History / Comment(s): ETOH General Exam - General Exam Comments Initial Comments: General: Appears in mild to moderate respiratory distress. HEAD: Normal with no signs of head trauma. EYES: PERRLA, EOMI, conjunctiva normal, no discharge. ENT: Hearing grossly intact, normal oropharynx. RESPIRATORY: Diminished breath sounds bilaterally with wheezing. Hypoxia baseline 2 L nasal cannula. Improved on 4 L nasal cannula. Increased work of breathing. Increased use of accessory muscles. C/V: Tachycardic. S1 and S2 auscultated, no edema, peripheral pulses 2+ and intact throughout ABD: Abd is soft, nontender, nondistended EXT: Normal range of motion, no obvious deformity SKIN: No rashes or lesions observed on exposed skin. NEURO: Alert and oriented x 4. Limitations: physical limitation Course Vital Signs 02/21/23 02/21/23 02/21/23 10:30 10:34 11:07 Temperature 97.7 F Pulse Rate 122 H 120 H 120 H Pulse Rate [ Curtain Feller Blindstitch ] Respiratory 22 22 24 Rate Blood Pressure 146/103 161/140 Blood Pressure [Right Arm] O2 Sat by Pulse 97 97 94 L Oximetry 02/21/23 02/21/23 02/21/23 11:16 11:44 11:55 Temperature Pulse Rate 121 H 123 H 121 H Pulse Rate [ Curtain Feller Blindstitch ] Respiratory 20 Rate Blood Pressure 161/104 Blood Pressure [Right Arm] O2 Sat by Pulse 89 L Oximetry 02/21/23 02/21/23 02/21/23 13:11 13:36 20:00 Temperature 97.1 F L Pulse Rate 122 H Pulse Rate [ 74 Curtain Feller Blindstitch ] Respiratory 18 Rate Blood Pressure Blood Pressure 114/67 [Right Arm] O2 Sat by Pulse 96 99 Oximetry 02/21/23 02/22/23 02/22/23 23:29 01:36 04:00 Temperature 97.6 F 97.1 F L Pulse Rate Pulse Rate [ 74 74 75 Curtain Feller Blindstitch ] Respiratory 18 18 18 Rate Blood Pressure Blood Pressure 101/58 114/70 [Right Arm] O2 Sat by Pulse 98 98 Oximetry 02/22/23 02/22/23 02/22/23 07:37 08:00 12:00 Temperature 99.1 F Pulse Rate Pulse Rate [ 81 76 Curtain Feller Blindstitch ] Respiratory 18 Rate Blood Pressure Blood Pressure 106/89 120/74 [Right Arm] O2 Sat by Pulse 93 L 99 98 Oximetry 02/22/23 02/22/23 14:00 16:00 Temperature Pulse Rate Pulse Rate [ 76 77 Curtain Feller Blindstitch ] Respiratory 18 Rate Blood Pressure Blood Pressure 113/68 [Right Arm] O2 Sat by Pulse 98 Oximetry Medical Decision Making - Medical Decision Making Was pt. sent in by a medical professional or institution (, PA, BOILER REPAIR SUPERVISOR, urgent care, hospital, or jail...) When possible be specific @ -No Did you speak to anyone other than the patient for history (EMS, parent, family, police, friend...)? What history was obtained from this source @ -No Did you review nursing and triage notes (agree or disagree)? Why? @ -I reviewed and agree with nursing and triage notes Were old charts reviewed (outside hosp., previous admission, EMS record, old EKG, old radiological studies, urgent care reports/EKG's, jail records)? Report findings @ -Old charts reviewed Differential Diagnosis (chest pain, altered mental status, abdominal pain women, abdominal pain men, vaginal bleeding, weakness, fever, dyspnea, syncope, headache, dizziness, GI bleed, back pain, seizure, CVA, palpatations, mental health, musculoskeletal)? @ -Differential Dyspnea: Coronary syndrome, arrhythmia, tamponade, asthma, COPD, pulmonary embolism, pneumonia, pneumothorax, pulmonary effusion, anaphylaxis, diabetic ketoacidosis, flailed chest, pulmonary contusion, diaphragmatic rupture, anemia, neuromuscular, this is not meant to be an all-inclusive list. EKG interpreted by me (3pts min.). @ -As above X-rays interpreted by me (1pt min.). @ -Chest x-ray reveals expected infiltrates in the left lower lobe. CT interpreted by me (1pt min.). @ -None done U/S interpreted by me (1pt. min.). @ -None done What testing was considered but not performed or refused? (CT, X-rays, U/S, labs)? Why? @ -None What meds were considered but not given or refused? Why? @ -Considered using BiPAP. Recommended up multiple times. Patient eventually did consent however like to attempt breathing treatment prior to starting it to see if she improves. We will continue to closely monitor. Did you discuss the management of the patient with other professionals (professionals i.e. , PA, BOILER REPAIR SUPERVISOR, lab, RT, psych nurse, older adult social work specialist, medication nurse, teacher, jailer/training officer, egg caser)? Give summary @ -Spoke with Dr. Smith who accepted the patient. Was smoking cessation discussed for >3mins.? @ -No Was critical care preformed (if so, how long)? @ -Yes, 38 minutes. Were there social determinants of health that impacted care today? How? (Homelessness, low income, unemployed, alcoholism, drug addiction, transportation, low edu. Level, literacy, decrease access to med. care, long-term, rehab)? @ -No Was there de-escalation of care discussed even if they declined (Discuss DNR or withdrawal of care, Hospice)? DNR status @ -No What co-morbidities impacted this encounter? (DM, HTN, Smoking, COPD, CAD, Cancer, CVA, ARF, Chemo, Hep., AIDS, mental health diagnosis, sleep apnea, morbid obesity)? @ -None Was patient admitted / discharged? Hospital course, mention meds given and route, prescriptions, significant lab abnormalities, going to OR and other pertinent info. @ -Based on the patient's presentation and physical exam, presents complaining of dyspnea. History of COPD exacerbation and cannot rule out infectious etiology at this time. Patient is having increased work of breathing and appeared dehydrated, likely secondary to insensible losses. She'll be started on IV fluids. She already received IV Solu-Medrol prior to arrival from EMS as well as a breathing treatment. We will administer additional breathing treatments as well as IV magnesium. She'll receive IV fluids. Patient was in agreement with this plan. EKG showed sinus tachycardia but no evidence of acute ischemic process. Patient's labs are remarkable for a mild leukocytosis of 10.8. Remainder the labs within acceptable limits. Patient is Covid positive. Chest x-ray reveals left lower lobe pneumonia. On reevaluation, patient once again is having increased work of breathing. At this time, patient did meet sepsis criteria at 1150 with 2 out of 4 sirs criteria. Blood cultures were obtained. Source appears to be pneumonia. She was started on IV fluids. She was started on Rocephin as well as azithromycin. We're continuing with breathing treatments as well as IV steroids. Patient was in agreement this plan. I once again offered BiPAP and it was ordered. However patient was like to attempt additional breathing treatments prior to starting it. I spoke with respiratory therapy and I was in agreement with plan for pulling off on BiPAP therapy. Vital signs are within supplemental tachycardia at this time. I spoke with the admitting physician, Dr. Smith of [facility] accepted the patient. Patient has not taken any of her home medications today which could be why she is tachycardic at this time. She is resting comfortably. BiPAP was canceled. Metoprolol was ordered. Patient agreement with this plan. Undiagnosed new problem with uncertain prognosis? @ -No Drug Therapy requiring intensive monitoring for toxicity (Heparin, Nitro, Insulin, Cardizem)? @ -No Were any procedures done? @ -No Diagnosis/symptom? @ -COPD exacerbation, hypoxic respiratory failure Acute, or Chronic, or Acute on Chronic? @ -Acute on chronic Uncomplicated (without systemic symptoms) or Complicated (systemic symptoms)? @ -Complicated Side effects of treatment? @ -No Exacerbation, Progression, or Severe Exacerbation? @ -Exacerbation Poses a threat to life or bodily function? How? (Chest pain, [place], [place], pneumonia, PE, COPD, DKA, ARF, appy, cholecystitis, CVA, Diverticulitis, Homicidal, Suicidal, threat to staff... and all critical care pts) @ -Yes Diagnosis/symptom? @ -Pneumonia, COVID-19 infection Acute, or Chronic, or Acute on Chronic? @ -Acute Uncomplicated (without systemic symptoms) or Complicated (systemic symptoms)? @ -Complicated Side effects of treatment? @ -none Exacerbation, Progression, or Severe Exacerbation] @ -no Poses a threat to life or bodily function? @ -yes - Lab Data Result diagrams: 02/23/23 10:14 02/23/23 10:14 Lab Results 02/21/23 02/21/23 02/21/23 Range/Units 10:48 10:48 10:48 WBC 10.8 H (3.8-10.6) k/uL RBC 4.90 (3.80-5.40) m/uL Hgb 13.4 (11.4-16.0) gm/dL Hct 44.0 (34.0-46.0) % MCV 89.8 (80.0-100.0) fL MCH 27.2 (25.0-35.0) pg MCHC 30.4 L (31.0-37.0) g/dL RDW 14.5 (11.5-15.5) % Plt Count 377 (150-450) k/uL MPV 7.5 Neutrophils % 88 % Lymphocytes % 6 % Monocytes % 4 % Eosinophils % 0 % Basophils % 0 % Neutrophils # 9.5 H (1.3-7.7) k/uL Lymphocytes # 0.7 L (1.0-4.8) k/uL Monocytes # 0.4 (0-1.0) k/uL Eosinophils # 0.1 (0-0.7) k/uL Basophils # 0.0 (0-0.2) k/uL Hypochromasia Slight PT 9.6 L (10.0-12.5) sec INR 0.9 (<1.2) APTT 24.0 (22.0-30.0) sec Sodium 139 (137-145) mmol/L Potassium 4.9 (3.5-5.1) mmol/L Chloride 102 (98-107) mmol/L Carbon Dioxide 27 (22-30) mmol/L Anion Gap 10 mmol/L BUN 11 (7-17) mg/dL Creatinine 0.44 L (0.52-1.04) mg/dL Est GFR (CKD-EPI)AfAm >90 (>60 ml/min/1.73 sqM) Est GFR (CKD-EPI)NonAf >90 (>60 ml/min/1.73 sqM) Glucose 114 H (74-99) mg/dL Calcium 9.5 (8.4-10.2) mg/dL Magnesium 2.1 (1.6-2.3) mg/dL Total Bilirubin 0.4 (0.2-1.3) mg/dL AST 24 (14-36) U/L ALT 17 (4-34) U/L Alkaline Phosphatase 67 (38-126) U/L Total Protein 6.9 (6.3-8.2) g/dL Albumin 3.9 (3.5-5.0) g/dL Urine Color Urine Appearance (Clear) Urine pH (5.0-8.0) Ur Specific [place] (1.001-1.035) Urine Protein (Negative) Urine Glucose (UA) (Negative) Urine Ketones (Negative) Urine Blood (Negative) Urine Nitrite (Negative) Urine Bilirubin (Negative) Urine Urobilinogen (<2.0) mg/dL Ur Leukocyte Esterase (Negative) Influenza Type A (PCR) (Not Detectd) Influenza Type B (PCR) (Not Detectd) Urine Legionella Ag (Negative) RSV (PCR) (Not Detectd) SARS-CoV-2 (PCR) (Not Detectd) 02/21/23 02/21/23 02/21/23 Range/Units 10:48 11:12 11:12 WBC (3.8-10.6) k/uL RBC (3.80-5.40) m/uL Hgb (11.4-16.0) gm/dL Hct (34.0-46.0) % MCV (80.0-100.0) fL MCH (25.0-35.0) pg MCHC (31.0-37.0) g/dL RDW (11.5-15.5) % Plt Count (150-450) k/uL MPV Neutrophils % % Lymphocytes % % Monocytes % % Eosinophils % % Basophils % % Neutrophils # (1.3-7.7) k/uL Lymphocytes # (1.0-4.8) k/uL Monocytes # (0-1.0) k/uL Eosinophils # (0-0.7) k/uL Basophils # (0-0.2) k/uL Hypochromasia PT (10.0-12.5) sec INR (<1.2) APTT (22.0-30.0) sec Sodium (137-145) mmol/L Potassium (3.5-5.1) mmol/L Chloride (98-107) mmol/L Carbon Dioxide (22-30) mmol/L Anion Gap mmol/L BUN (7-17) mg/dL Creatinine (0.52-1.04) mg/dL Est GFR (CKD-EPI)AfAm (>60 ml/min/1.73 sqM) Est GFR (CKD-EPI)NonAf (>60 ml/min/1.73 sqM) Glucose (74-99) mg/dL Calcium (8.4-10.2) mg/dL Magnesium (1.6-2.3) mg/dL Total Bilirubin (0.2-1.3) mg/dL AST (14-36) U/L ALT (4-34) U/L Alkaline Phosphatase (38-126) U/L Total Protein (6.3-8.2) g/dL Albumin (3.5-5.0) g/dL Urine Color Colorless Urine Appearance Clear (Clear) Urine pH 6.0 (5.0-8.0) Ur Specific [place] 1.011 (1.001-1.035) Urine Protein Negative (Negative) Urine Glucose (UA) Negative (Negative) Urine Ketones Negative (Negative) Urine Blood Negative (Negative) Urine Nitrite Negative (Negative) Urine Bilirubin Negative (Negative) Urine Urobilinogen <2.0 (<2.0) mg/dL Ur Leukocyte Esterase Negative (Negative) Influenza Type A (PCR) Not Detected (Not Detectd) Influenza Type B (PCR) Not Detected (Not Detectd) Urine Legionella Ag Negative (Negative) RSV (PCR) Not Detected (Not Detectd) SARS-CoV-2 (PCR) Detected A (Not Detectd) - EKG Data -: EKG Interpreted by Me EKG Comments: 12-lead Electrocardiogram Interpretation Note EKG was reviewed and interpreted by myself. 12-lead ECG performed at 1028 is interpreted by me as revealing sinus tachycardia at a rate of 121 beats per minute. [place] is normal. MD interval is 176 ms, QRS duration is 98 ms, QTc is 492 ms.. There were no ST or T wave abnormalities to suggest myocardial ischemia or injury. R wave progression across the precordium was satisfactory. By my interpretation this EKG is non-diagnostic for acute ischemia. Critical Care Time Critical Care Time: Yes Total Critical Care Time: 38 Disposition Clinical Impression: COPD (chronic obstructive pulmonary disease), Sepsis, Pneumonia, COVID-19, Hypoxic respiratory failure Disposition: ADMITTED IP TO THIS HOSP Condition: Serious Time of Disposition: 13:00
--- NOTE | 2023-02-21 14:01 | P.HPIM ---
History of Present Illness H&P Date: 02/21/23 History of present illness; 78 year old female with history of recurrent chest pain, asthma, COPD, GERD, hypertension, hyperlipidemia, anxiety/depression who presented to the ER because of worsening shortness of breath. Patient stated that she woke up at 4:00 this morning with worsening shortness of breath. There was no complain of any chest pain. Patient baseline uses 2 L of oxygen but at home she was feeling more short of breath. Patient was complaining of dry cough. Patient tried to use her breathing treatment but that did not work. Patient continued to complain of worsening breathing. There was no complain of orthopnea or PND. Denied any dizziness or lightheadedness. There was no complain of swelling of feet. Because his worsening shortness of breath, patient called EMS and they brought her to the ER Initial lab work done in the ER showed WBC 10.8, hemoglobin 13.4, platelet count 377, sodium 139 potassium 4.9, BUN 11, creatinine 0.44 AST 24, AST 17, UA negative for infection Influenza A not detected Influenza B not detected RSV not detected COVID-19 detected EKG done in the ER showed heart rate of 121, no ST segment elevation or depression seen, no T-wave inversions seen. Chest x-ray done in the ER showed left lower lobe airspace opacity For pneumonia Patient admitted to internal medicine service REVIEW OF SYSTEMS: CONSTITUTIONAL: No fever, no malaise, no fatigue. HEENT: No recent visual problems or hearing problems. Denied any sore throat. CARDIOVASCULAR: As mentioned in HPI PULMONARY: As mentioned in HPI GASTROINTESTINAL: No diarrhea, no nausea, no vomiting, no abdominal pain. NEUROLOGICAL: No headaches, no weakness, no numbness. HEMATOLOGICAL: Denies any bleeding or petechiae. GENITOURINARY: Denies any burning micturition, frequency, or urgency. MUSCULOSKELETAL/RHEUMATOLOGICAL: Denies any joint pain, swelling, or any muscle pain. ENDOCRINE: Denies any polyuria or polydipsia. The rest of the 14-point review of systems is negative. PHYSICAL EXAMINATION: GENERAL: The patient is alert and oriented x3, in respiratory distress, chronically ill-looking HEENT: Pupils are round and equally reacting to light. EOMI. No scleral icterus. No conjunctival pallor. Normocephalic, atraumatic. No pharyngeal erythema. No thyromegaly. CARDIOVASCULAR: S1 and S2 present. No murmurs, rubs, or gallops. Tachycardic PULMONARY: Coarse breath sounds bilaterally, expiratory wheeze audible, tachypne ic ABDOMEN: Soft, nontender, nondistended, normoactive bowel sounds. No palpable organomegaly. MUSCULOSKELETAL: No joint swelling or deformity. EXTREMITIES: No cyanosis, clubbing, or pedal edema. NEUROLOGICAL: Gross neurological examination did not reveal any focal deficits. SKIN: No rashes. Assessment and plan Bacterial pneumonia Acute COPD exacerbation Chronic hypoxic respiratory failure COVID-19 infection Hypertension Tachycardia Hyperlipidemia, history History of SVT Gastroesophageal reflux disease Anxiety/Depression Monitor vital signs Monitor CBC Monitor CMP Continue telemetry monitoring Continue oxygen supplementation Ordered blood cultures Ordered sputum cultures Continue IV Rocephin and azithromycin Continue IV Solu-Medrol Continue breathing treatments Resume home meds Consult pulmonary Labs and medication were reviewed.. Continue same treatment. Continue with symptomatic treatment. Resume home medication. Monitor labs and vitals. DVT and GI prophylaxis. Further recommendations as per clinical course of the patient Dictation was produced using [employer] dictation software. please excuse any grammatical, word or spelling errors. Past Medical History Past Medical History: Asthma, Chest Pain / Angina, COPD, GERD/Reflux, Hyperlipidemia, Hypertension, Pneumonia Additional Past Medical History / Comment(s): oxygen [place] @2L continuous, gallstones, pernicious anemia History of Any Multi-Drug Resistant Organisms: Other MDRO Past Surgical History: Hernia Repair, Joint Replacement, Orthopedic Surgery, Ton sillectomy Additional Past Surgical History / Comment(s): left elbow surgery, abscess in stomach area, abdominial scar tissue, tamie oophorectomy, left knee surgery, left hip replacement Past Anesthesia/Blood Transfusion Reactions: No Reported Reaction Past Psychological History: Anxiety, Depression Smoking Status: Former smoker Past Alcohol Use History: None Reported Past Drug Use History: None Reported - Past Family History Mother Family Medical History: No Reported History Additional Family Medical History / Comment(s): MS Father Family Medical History: CVA/TIA, Myocardial Infarction ([place]) Additional Family Medical History / Comment(s): ETOH Medications and Allergies Home Medications Medication Instructions Recorded Confirmed Type Simvastatin [Zocor] 40 mg PO HS 02/20/15 02/21/23 History Montelukast Sodium [Singulair] 10 mg PO HS 03/01/16 02/21/23 History Albuterol Sulfate [Ventolin HFA] 2 puff INHALATION RT-Q4H PRN 06/20/21 02/21/23 History Ipratropium/Albuterol Sulfate 1 puff INHALATION RT-QID 06/20/21 02/21/23 History [Combivent Respimat Inhaler] Omeprazole 20 mg PO DAILY 06/20/21 02/21/23 History Sertraline [Zoloft] 200 mg PO DAILY 06/20/21 02/21/23 History Acetaminophen [Tylenol Extra 1,000 mg PO Q6H PRN 11/08/21 02/21/23 History Strength] Budesonide-Formot 160-4.5 Mcg 2 puff INHALATION RT-BID #1 inh 12/20/21 02/21/23 Rx [Symbicort 160-4.5 Mcg Inhaler] Nitroglycerin Sl Tabs [Nitrostat] 0.4 mg SUBLINGUAL Q5M PRN #30 tab 12/28/21 02/21/23 Rx Spironolactone [Aldactone] 25 mg PO DAILY #30 tab 12/28/21 02/21/23 Rx Metoprolol Succinate (ER) [Toprol 50 mg PO DAILY 02/25/22 02/21/23 History XL] ALPRAZolam [Xanax] 0.5 mg PO TID PRN 02/21/23 02/21/23 History Ipratropium-Albuterol Nebulize 3 ml INHALATION RT-QID PRN 02/21/23 02/21/23 History [Duoneb 0.5 mg-3 mg/3 ml Soln] guaiFENesin [Mucinex] 600 mg PO Q12H PRN 02/21/23 02/21/23 History Allergies Allergy/AdvReac Type Severity Reaction Status Date / Time No Known Allergies Allergy Verified 02/21/23 11:54 Physical Exam Vitals: Vital Signs Temp Pulse Resp BP Pulse Ox 02/21/23 13:36 96 02/21/23 13:11 122 H 02/21/23 11:55 121 H 02/21/23 11:44 123 H 02/21/23 11:16 121 H 20 161/104 89 L 02/21/23 11:07 120 H 24 161/140 94 L 02/21/23 10:34 120 H 22 97 02/21/23 10:30 97.7 F 122 H 22 146/103 97 Intake and Output 02/20/23 02/21/23 02/21/23 22:59 06:59 14:59 Other: Weight 60.781 kg Results CBC & Chem 7: 02/21/23 10:48 02/21/23 10:48 Labs: Abnormal Lab Results - Last 24 Hours (Table) 02/21/23 02/21/23 02/21/23 Range/Units 10:48 10:48 10:48 WBC 10.8 H (3.8-10.6) k/uL MCHC 30.4 L (31.0-37.0) g/dL Neutrophils # 9.5 H (1.3-7.7) k/uL Lymphocytes # 0.7 L (1.0-4.8) k/uL PT 9.6 L (10.0-12.5) sec Creatinine 0.44 L (0.52-1.04) mg/dL Glucose 114 H (74-99) mg/dL SARS-CoV-2 (PCR) (Not Detectd) 02/21/23 Range/Units 10:48 WBC (3.8-10.6) k/uL MCHC (31.0-37.0) g/dL Neutrophils # (1.3-7.7) k/uL Lymphocytes # (1.0-4.8) k/uL PT (10.0-12.5) sec Creatinine (0.52-1.04) mg/dL Glucose (74-99) mg/dL SARS-CoV-2 (PCR) Detected A (Not Detectd)
[2023-02-21] MEDS: METOPROLOL SUCCINATE (ER) 50 MG TAB.ER.24H PO SCH (14:03)
[2023-02-21] MEDS ORDERED: HEPARIN SODIUM,PORCINE 5,000 UNIT/ML 1 ML VIAL SQ SCH (16:00)
[2023-02-21] MEDS: methylPREDNISolone SOD SUCCI 40 MG/ML 1 ML VIAL IV SCH ×2 (17:11→22:51)
[2023-02-21] MEDS ORDERED: HEPARIN SODIUM 1,000 UN/ML (10ML VL) IV PRN (18:03)
[2023-02-21] MEDS ORDERED: HEPARIN SODIUM 1,000 UN/ML (10ML VL) IV ONE (18:03)
[2023-02-21] MEDS ORDERED: RX INFO: IV CONTRAST WAS GIVEN 1 EACH MISC MISCELLANE PRN (18:25)
[2023-02-21] MEDS: HEPARIN SOD,PORK IN 0.45% NACL 25,000 UNIT in 0.45% NACL 1 250ML.BAG IV SCH (19:22)
[2023-02-21] MEDS: SYMBICORT 160-4.5 MCG INHALER INHALATION SCH (20:02)
[2023-02-21] MEDS: ALPRAZolam 0.5 MG TAB PO PRN (20:56)
[2023-02-21] MEDS: ATORVASTATIN 40 MG TAB PO SCH (20:56)
[2023-02-21] MEDS: ACETAMINOPHEN TAB 325 MG TAB PO PRN (20:56)
[2023-02-21] MEDS: MONTELUKAST 10 MG TAB PO SCH (20:56)
--- NOTE | 2023-02-21 20:56 | CT ---
EXAMINATION TYPE: CT angio chest CT DLP: 296 mGycm, Automated exposure control for dose reduction was used. DATE OF EXAM: 02/21/2023 6:54 PM COMPARISON: Earlier same day chest x-ray CLINICAL INDICATION:Female, 78 years old with history of d-dimer; SOB and elevated d-dimer TECHNIQUE/CONTRAST: CTA scan of the thorax is performed with IV Contrast, patient injected with 60ml mL of Isovue 300, NH P images are created and reviewed these are created on a separate workstation.. FINDINGS: Pulmonary Artery: There is no evidence for a filling defect within the pulmonary vasculature to sugge st acute pulmonary embolism. The pulmonary trunk is of normal size, 2.8 cm. Heart: Heart is within normal limits for size. Trace pericardial fluid. Moderate coronary arterial ca lcifications and/or stents most conspicuous in the left main and LAD region. Vasculature: Aorta shows moderate mostly calcified atherosclerotic disease. Fusiform ectasia of the a scending aorta measures up to 3.5 cm. Mild calcifications at the aortic valve. There is a bovine arch configuration with calcifications at the vessel origins without significant stenosis suggested. Prox imal descending aorta is 2.8 cm. Additional mixed soft and calcified plaque in the distal descending and upper abdominal aorta. No significant narrowing of the proximal celiac, superior mesenteric, or b ilateral renal arteries. Mediastinum: No gross evidence of adenopathy. Moderate sized hiatal hernia. Airway: Central airways are patent. There is diffuse mild peribronchial soft tissue thickening which can be seen with bronchitis, acute or chronic. There may be small mucous plugs in small branches to t he lower lobes. Lower neck: No significant findings. Soft Tissues: Mild generalized body wall edema consistent with anasarca. No axillary adenopathy. Lungs/Pleura: Moderate to severe pulmonary emphysematous changes bilaterally. Bibasilar stranding sug gesting scarring and/or subsegmental atelectasis. Small fat-containing hernia noted along the posteri or aspect of the left diaphragm. Small size pleural effusions, left larger than right. No pneumothora x. Scattered scarring/senescent changes in the right lung without airspace consolidation, sizable nod ule or mass demonstrated. Left lung shows scattered scarring/senescent changes. In the mid left upper lobe at the level of the pulmonary trunk, there is a noncalcified nodule with slightly spiculated ap pearing margin measuring 20 x 14 mm axially (image 63 series 401) and extends 18 mm craniocaudally. I t is noted that this lies in relatively close proximity to the left upper lobe artery, and a branch o f the artery also runs immediately adjacent to this lesion. A branch of the left upper lobe bronchus coursing anteriorly also passes just medial to this nodule, and therefore might be amenable to bronch oscopic biopsy. A patch of part solid and groundglass opacity in the medial left upper lobe infrahila r region measures approximately 19 x 13 mm image 88 is difficult to measure craniocaudally but appear s somewhat elongated extending along the oblique fissure for about 62 mm. This is of uncertain etiolo gy, infection and neoplasm are leading considerations. There is a calcified granuloma in the left low er lobe lobe. In the posterior left lung on axial imaging there are some small nodular appearing opac ities however on review of multiplanar imaging these appear relatively flat and not masslike. Musculoskeletal: Moderate degenerative changes throughout the spine. Mild loss of height with superio r endplate depressions and small Schmorl's nodes at multiple levels, judged likely chronic without di screte fracture lucency seen. No destructive bone lesions are seen. There are small sclerotic densiti es at the anterior aspect of the T8 and L2 vertebral bodies which are nonspecific but could relate to bone islands. Upper Abdomen: Gallbladder appears moderately distended with an irregular gallstone or cluster seen d ependently measuring 8.3 mm. No bile duct dilatation is seen. There is probably a small duodenal dive rticulum near the distal CBD. Gas in the abdomen all appears to be contained within bowel loops, no g ross pneumoperitoneum is evident. There is a partially visualized hernia about 2.8 cm wide in the griffin tral midline abdominal wall which contains a loop of bowel. Moderate stool in the visualized portions of the colon. Mild thickening of the adrenals without evidence of mass.. IMPRESSION: 1. No evidence of pulmonary embolism. 2. Moderate to severe pulmonary emphysematous changes. 3. An 18 mm noncalcified nodule in the central left upper lobe, discussed above, highly concerning f or neoplasm (likely lung primary), unless proven otherwise. PET/CT may be of benefit for further eval uation. Also this may be amenable to bronchoscopic guided biopsy, however percutaneous CT-guided biop sy and /or ablation could also be considered. 4. Additional patchy part solid groundglass opacity in the medial left upper lobe, of uncertain etio logy but sequela of infection and neoplasm are leading considerations. Attention on follow-up. 5. Mild peribronchial soft tissue thickening bilaterally can be seen with bronchitis, acute or chron ic. 6. Moderate vascular calcification of the aorta and branches, including the coronary arteries. 7. Fusiform ectasia of the ascending aorta measures 3.5 cm. 8. Mild anasarca. Small bilateral pleural effusions. 9. Partially seen cholelithiasis and gallbladder distention, if concern for acute cholecystitis foll ow-up ultrasound or HIDA scan may be obtained. 10. Partially imaged bowel-containing hernia along the ventral midline abdominal wall.
[2023-02-21] MEDS ORDERED: ATORVASTATIN 20 MG TAB PO SCH (21:00)
[2023-02-21 21:01] LABS: Glucose,Whole Blood 96 mg/dL (70-110)
[2023-02-22 06:04] LABS: Glucose,Whole Blood 100 mg/dL (70-110)
[2023-02-22] MEDS ORDERED: ONDANSETRON 4 MG/2 ML VIAL IVP STA (06:23)
[2023-02-22] MEDS: SYMBICORT 160-4.5 MCG INHALER INHALATION SCH ×2 (07:31→21:00)
[2023-02-22] MEDS: ALPRAZolam 0.5 MG TAB PO PRN ×3 (07:40→22:17)
[2023-02-22 07:43] LABS: Basophils % (A) 0 %; Eosinophils % (A) 0 %; HCT 36.1 % (34.0-46.0); HGB 10.7 gm/dL (11.4-16.0); Hypochromasia Marked; Lymphocytes # (A) 0.8 k/uL (1.0-4.8); Lymphocytes % (A) 19 %; MCH 27.3 pg (25.0-35.0); MCHC 29.7 g/dL (31.0-37.0); MCV 91.9 fL (80.0-100.0); Mean Platelet Volume 7.8; Monocytes # (A) 0.2 k/uL (0-1.0); Monocytes % (A) 4 %; Neutrophils # (A) 3.2 k/uL (1.3-7.7); Neutrophils % (A) 75 %; Platelet Count 308 k/uL (150-450); RBC 3.93 m/uL (3.80-5.40); RDW 14.3 % (11.5-15.5); WBC 4.2 k/uL (3.8-10.6)
--- NOTE | 2023-02-22 07:47 | P.CNPUL ---
History of Present Illness Consult date: 02/21/23 Reason for consult: dyspnea History of present illness: This is a 76-year-old female patient who came into the emergency department with worsening shortness of breath. The patient denies having any chest pain. The patient is known to have COPD and the patient uses home O2 at 2 L/m nasal cannula. 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 Gonzalez. The patient also reported some cough. No significant sputum production. No pleurisy. No hemoptysis. No nausea or emesis. His cough was essentially dry. Based on that, he came into the emergency Department. The patient checked positive for Covid 19 infection. Influenza and RSV were both negative. The chest x-ray showed some chronic infiltration of the left lower lobe seen on previous chest x-rays. Currently is on 4 L of oxygen by nasal cannula. A CTA of the chest was also done that confirmed presence of moderate to severe emphysematous changes bilaterally. There was a 80 mm pulmonary nodule in the left upper lobe, irregular borders is highly suspicious for primary bronchogenic carcinoma. No significant infiltrates noted. Small left-sided pleural effusion. Moderate calcification of the aortic branches including coronary artery disease and ectasia of the ascending aorta measuring 3.5 cm in size. No evidence of any pulmonary embolism. Hospitalized for Covid 19 infection and worsening shortness of breath and acute on top of chronic hypoxic respiratory failure. The WBC count of 10.8, he was 15.4, platelet count is at 337 and UA is negative. Nitrites are within normal limits. Renal function is also within normal limits. The patient was started on enteric antibiotic coverage with IV Rocephin. The patient is also on IV Solu-Medrol 40 mg every 8 hours. The patient was started on Symbicort and IV fluids with normal saline at the rate of 100 mL an hour. The patient utilizes Symbicort on outpatient basis in addition to DuoNeb. Patient has hypertension hyperlipidemia and history of pernicious anemia. Patient also has history of CHF with chronic systolic heart failure with an ejection fraction of 35-40%. This is based on echocardiogram that was done back in 12/27/2021. She is limited on metoprolol. She is also on Aldactone on outpatient basis. Note that the cardiac enzymes were also checked and the patient ruled in fot acute NSTMI and the patient is currently on IV Heparin and trop I peaked at 1.7. and the ECG showed normal sinus rhythm. No ST segment elevation.The patient is known to have coronary artery disease. The patient hospitalization approximately year ago and underwent cardiac catheterization by Dr. Duran and this was done on 12/20/2021 revealing normal left main, normal circumflex, normal AV and there was some mild nonobstructive nonocclusive coronary artery disease. Review of Systems Constitutional: Reports as per HPI Eyes: denies as per HPI, denies blurred vision, denies bulging eye, denies decreased vision, denies diplopia, denies discharge, denies dry eye, denies i rritation, denies itching, denies pain, denies photophobia, denies loss of peripheral vision, denies loss of vision, denies tunnel vision/blind spots Ears: deny: decreased hearing, ear discharge, earache, tinnitus Ears, nose, mouth and throat: Reports as per HPI Breasts: absent: as per HPI, change in shape, gynecomastia, masses, nipple discharge, pain, skin changes, swelling Cardiovascular: Reports decreased exercise tolerance, Reports dyspnea on exertion Respiratory: Reports cough, Reports dyspnea, Reports home oxygen Gastrointestinal: Reports as per HPI Genitourinary: Reports as per HPI Menstruation: Reports as per HPI Musculoskeletal: Reports as per HPI Musculoskeletal: absent: ankle pain, ankle stiffness, ankle swelling Integumentary: Reports as per HPI Neurological: Reports as per HPI Psychiatric: Reports as per HPI Endocrine: Reports as per HPI Hematologic/Lymphatic: Reports as per HPI Allergic/Immunologic: Reports as per HPI Past Medical History Past Medical History: Asthma, Chest Pain / Angina, COPD, GERD/Reflux, Hyperlipidemia, Hypertension, Pneumonia Additional Past Medical History / Comment(s): oxygen [place] @2L continuous, gallstones, pernicious anemia History of Any Multi-Drug Resistant Organisms: Other MDRO Past Surgical History: Hernia Repair, Joint Replacement, Orthopedic Surgery, Tonsillectomy Additional Past Surgical History / Comment(s): left elbow surgery, abscess in stomach area, abdominial scar tissue, tamie oophorectomy, left knee surgery, left hip replacement Past Anesthesia/Blood Transfusion Reactions: No Reported Reaction Past Psychological History: Anxiety, Depression Smoking Status: Former smoker Past Alcohol Use History: None Reported Past Drug Use History: None Reported - Past Family History Mother Family Medical History: No Reported History Additional Family Medical History / Comment(s): MS Father Family Medical History: CVA/TIA, Myocardial Infarction ([place]) Additional Family Medical History / Comment(s): ETOH Medications and Allergies Home Medications Medication Instructions Recorded Confirmed Type Simvastatin [Zocor] 40 mg PO HS 02/20/15 02/21/23 History Montelukast Sodium [Singulair] 10 mg PO HS 03/01/16 02/21/23 History Albuterol Sulfate [Ventolin HFA] 2 puff INHALATION RT-Q4H PRN 06/20/21 02/21/23 History Ipratropium/Albuterol Sulfate 1 puff INHALATION RT-QID 06/20/21 02/21/23 History [Combivent Respimat Inhaler] Omeprazole 20 mg PO DAILY 06/20/21 02/21/23 History Sertraline [Zoloft] 200 mg PO DAILY 06/20/21 02/21/23 History Acetaminophen [Tylenol Extra 1,000 mg PO Q6H PRN 11/08/21 02/21/23 History Strength] Budesonide-Formot 160-4.5 Mcg 2 puff INHALATION RT-BID #1 inh 12/20/21 02/21/23 Rx [Symbicort 160-4.5 Mcg Inhaler] Nitroglycerin Sl Tabs [Nitrostat] 0.4 mg SUBLINGUAL Q5M PRN #30 tab 12/28/21 02/21/23 Rx Spironolactone [Aldactone] 25 mg PO DAILY #30 tab 12/28/21 02/21/23 Rx Metoprolol Succinate (ER) [Toprol 50 mg PO DAILY 02/25/22 02/21/23 History XL] ALPRAZolam [Xanax] 0.5 mg PO TID PRN 02/21/23 02/21/23 History Ipratropium-Albuterol Nebulize 3 ml INHALATION RT-QID PRN 02/21/23 02/21/23 History [Duoneb 0.5 mg-3 mg/3 ml Soln] guaiFENesin [Mucinex] 600 mg PO Q12H PRN 02/21/23 02/21/23 History Allergies Allergy/AdvReac Type Severity Reaction Status Date / Time No Known Allergies Allergy Verified 02/21/23 11:54 Physical Exam Vitals: Vital Signs Temp Pulse Resp BP Pulse Ox 02/21/23 13:36 96 02/21/23 13:11 122 H 02/21/23 11:55 121 H 02/21/23 11:44 123 H 02/21/23 11:16 121 H 20 161/104 89 L 02/21/23 11:07 120 H 24 161/140 94 L 02/21/23 10:34 120 H 22 97 02/21/23 10:30 97.7 F 122 H 22 146/103 97 Intake and Output 02/20/23 02/21/23 02/21/23 22:59 06:59 14:59 Other: Weight 60.781 kg Gen. appearance, the patient is calm and comfortable no acute distress, currently on 4 L of O2 nasal cannula Head exam was generally normal. There was no scleral icterus or corneal arcus. Mucous membranes were moist. Neck was supple and without jugular venous distension, thyromegaly, or carotid bruits. Carotids were easily palpable bilaterally. There was no adenopathy. Lungs sounds are diminished bilaterally along with scattered extremity wheezes Cardiac exam revealed the PMI to be normally situated and sized. The rhythm was regular and no extrasystoles were noted during several minutes of auscultation. The first and second heart sounds were normal and physiologic splitting of the second heart sound was noted. There were no murmurs, rubs, clicks, or gallops. Abdominal exam revealed normal bowel sounds. The abdomen was soft, non-tender, and without masses, organomegaly, or appreciable enlargement of the abdominal aorta. Examination of the extremities revealed easily palpable radial, femoral and pedal pulses. There was no cyanosis, clubbing or edema. Examination of the skin revealed no evidence of significant rashes, suspicious appearing nevi or other concerning lesions. Results - Laboratory Findings CBC and BMP: 02/21/23 10:48 02/21/23 10:48 PT/INR, D-dimer PT 9.6 sec (10.0-12.5) L 02/21/23 10:48 INR 0.9 (<1.2) 02/21/23 10:48 Abnormal lab findings: Abnormal Labs 02/21/23 02/21/23 02/21/23 10:48 10:48 10:48 WBC 10.8 H MCHC 30.4 L Neutrophils # 9.5 H Lymphocytes # 0.7 L PT 9.6 L Creatinine 0.44 L Glucose 114 H SARS-CoV-2 (PCR) 02/21/23 10:48 WBC MCHC Neutrophils # Lymphocytes # PT Creatinine Glucose SARS-CoV-2 (PCR) Detected A - Diagnostic Findings Chest x-ray: image reviewed Assessment and Plan Plan: Acute Covid 19 infection, no clear indication for pneumonia. No significant pneumonia based on CT angiogram findings. No evidence of any pulmonary embolism. Acute exacerbation of COPD Acute on top of chronic hypoxic respiratory failure currently on oxygen at 4 L/m nasal cannula, patient is on O2 at 2 L at baseline acute non-ST segment elevation myocardial infarction the patient's troponin peaked at 1.7 pulmonary nodule left upper lobe, measuring 18 mm in size, suspicious for primary bronchogenic carcinoma Coronary artery disease with previous non-ST segment elevation myocardial infarction. His cardiac catheterization showing mild nonobstructive coronary artery disease CHF with impaired LV function, echo cardiac exam showing an ejection fraction of 35-40% Chronic anxiety/depression Hypertension Hyperlipidemia Acid reflux Pernicious anemia, history of Osteoarthritis Plan Titrate oxygen flow to maintain a saturation above 90% No need for antibiotic therapy at this point in time. No clear indication for pneumonia Continue IV Solu-Medrol Resume Symbicort Albuterol HFA 4 times a day IV fluids Continue IV heparin Cardiology consultation Pulmonary nodule will be evaluated on an outpatient basis. The patient will be set need a PET/CT and subsequent bronchoscopy and biopsy specially of the PET scan showed a metabolically avid lesion in the left upper lobe. Need for another catheterization is to be evaluated by cardiology at the later stage Resume home medications We'll continue to follow
[2023-02-22 08:29] LABS: African American GFR (CKD) >90 (>60 ml/min/1.73 sqM); Anion Gap 10 mmol/L; Blood Urea Nitrogen 19 mg/dL (7-17); Calcium 8.8 mg/dL (8.4-10.2); Carbon Dioxide 21 mmol/L (22-30); Chloride 100 mmol/L (98-107); Glucose 95 mg/dL (74-99); Non-African American GFR(CKD) >90 (>60 ml/min/1.73 sqM); Potassium 4.8 mmol/L (3.5-5.1); Sodium 131 mmol/L (137-145)
[2023-02-22] MEDS: ASPIRIN 81 MG PO SCH (08:54)
[2023-02-22] MEDS: METOPROLOL SUCCINATE (ER) 50 MG TAB.ER.24H PO SCH (08:54)
[2023-02-22] MEDS: AZITHROMYCIN 500 MG TAB PO SCH (08:54)
[2023-02-22] MEDS: methylPREDNISolone SOD SUCCI 40 MG/ML 1 ML VIAL IV SCH ×3 (08:55→23:39)
[2023-02-22] MEDS: ACETAMINOPHEN TAB 325 MG TAB PO PRN ×3 (08:55→20:38)
[2023-02-22] MEDS: guaiFENesin 600 MG TABLET.ER PO PRN (08:55)
[2023-02-22] MEDS: PANTOPRAZOLE 40 MG TABLET PO SCH (08:55)
[2023-02-22] MEDS: SPIRONOLACTONE 25 MG TAB PO SCH (09:00)
[2023-02-22] MEDS ORDERED: METOPROLOL SUCCINATE (ER) 50 MG TAB.ER.24H PO SCH (09:00)
[2023-02-22] MEDS: SERTRALINE 100 MG TAB PO SCH (09:00)
--- NOTE | 2023-02-22 09:31 | CONS ---
CONSULTATION HISTORY OF PRESENT ILLNESS: This is a 78-year-old lady with history of COPD, hypertension, who presented to hospital with progressively worsening shortness of breath that started around 4 o'clock in the morning. The patient has increasing cough that was nonproductive. She comes into hospital with COPD exacerbation and has tested positive for COVID. CT scan of the chest was negative for pulmonary embolism. She has significant calcification of the coronary arteries and ectatic aorta. There were emphysematous changes. The patient had a cardiac catheterization in November [address] Allen, and that showed mild nonobstructive coronary artery disease. On this admission, her troponin is elevated at 1.4 and 1.7, and an EKG shows sinus rhythm with nonspecific ST-T wave changes. Her myocardial infarction could be due to hypoxia and COVID infection. We will treat her with aspirin, statin, beta kylie. Continue the IV heparin for another 24 hours and add nitrates. I will obtain a 2D echo to document her LV function. An echo done in December of 2021 revealed LV systolic dysfunction. PAST MEDICAL HISTORY: Significant for COPD, hypertension, and dyslipidemia. CURRENT MEDICATIONS: Include: 1. DuoNeb. 2. Zocor. 3. Zoloft. 4. Singulair. 5. Toprol-XL 50 mg daily. 6. Combivent. 7. Mucinex. 8. Aldactone. 9. Symbicort. 10.Albuterol. 11.Xanax. ALLERGIES: There are no known drug allergies. FAMILY HISTORY: Negative for premature coronary artery disease. SOCIAL HISTORY: Negative for current smoking, EtOH abuse, or drug abuse. REVIEW OF SYSTEMS: HEENT: Unremarkable. CARDIAC: As described above. RESPIRATORY: As described above. GI: Negative. GENITOURINARY: Negative. ALLERGY/IMMUNOLOGY: Negative. SKIN: Negative. MUSCULOSKELETAL: Negative for arthritis. PSYCHOSOCIAL: Negative. DERM: Negative. CONSTITUTIONAL: Negative. ONCOLOGICAL: Negative. ROOFING TECHNICIAN: Negative. Rest of the system review is not relevant. PHYSICAL EXAMINATION: VITAL SIGNS: The patient is afebrile, heart rate is 75 beats per minute, blood pressure is 114/72, respiratory rate is 18, O2 saturation is 98% on 2 L. NECK: There is no jugular venous distention. Carotid upstroke is normal. There is no bruit. CHEST: Reveals diffuse bilateral rhonchi. HEART: Reveals first and second heart sounds. A systolic murmur at the apex. ABDOMEN: Soft. EXTREMITIES: Did not reveal any edema. Peripheral pulses are felt. LABORATORY DATA: Labs show a hemoglobin of 10.7, platelet count is 308. Potassium is 4.8, creatinine is 0.4. Two sets of troponins are elevated at 1.4 and 1.7. ASSESSMENT: 1. Acute vve-EF-xhkreds elevation myocardial infarction. 2. Chronic obstructive pulmonary disease exacerbation. 3. Acute COVID infection. PLAN: The myocardial infarction could be due to plaque rupture, could be related to the coronavirus infection, or could be related to hypoxia. I am going to continue the patient on IV heparin for another day. Obtain a 2D echo to document her LV function. She had a cardiac catheterization within the last 1 year that did not reveal significant obstructive CAD, but once her COVID issues resolve, we may consider doing a cardiac catheterization on her to rule out any progression of underlying CAD. MMANDREA / JERADN: [id number] /
--- NOTE | 2023-02-22 09:36 | XR ---
EXAMINATION TYPE: XR chest 2V DATE OF EXAM: 02/22/2023 COMPARISON: 02/21/2023 HISTORY: 78-year-old female with pneumonia TECHNIQUE: AP and lateral views FINDINGS: Heart normal size. Aorta within normal limits. Mild patchy interstitial density throughout the left l abram, less confluent patchy opacity at the left lower lung compatible with improving aeration. There a re trace pleural effusions on the lateral view. IMPRESSION: COPD with some residual patchy interstitial changes throughout the left lung but overall improving ae ration. Trace pleural effusions remain on the lateral view.
[2023-02-22] MEDS ORDERED: ALBUTEROL HFA INHALER INHALATION PRN (10:50)
[2023-02-22 11:02] LABS: Glucose,Whole Blood 88 mg/dL (70-110)
[2023-02-22] MEDS: ISOSORBIDE MONONITRATE ER 30 MG TAB.ER.24H PO SCH (12:52)
--- NOTE | 2023-02-22 12:54 | P.PN ---
Subjective Progress Note Date: 02/22/23 This is a 76-year-old female patient who came into the emergency department with worsening shortness of breath. The patient denies having any chest pain. The patient is known to have COPD and the patient uses home O2 at 2 L/m nasal cannula. His primary rn home health Dr. Gonzalez. The patient also reported some cough. No significant sputum production. No pleurisy. No hemoptysis. No nausea or emesis. His cough was essentially dry. Based on that, he came into the emergency Department. The patient checked positive for Covid 19 infection. Influenza and RSV were both negative. The chest x-ray showed some chronic infiltration of the left lower lobe seen on previous chest x-rays. Currently is on 4 L of oxygen by nasal cannula. A CTA of the chest was also done that confirmed presence of moderate to severe emphysematous changes bilaterally. There was a 80 mm pulmonary nodule in the left upper lobe, irregular borders is highly suspicious for primary bronchogenic carcinoma. No significant infiltrates noted. Small left-sided pleural effusion. Moderate calcification of the aortic branches including coronary artery disease and ectasia of the ascending aorta measuring 3.5 cm in size. No evidence of any pulmonary embolism. Hospitalized for Covid 19 infection and worsening shortness of breath and acute on top of chronic hypoxic respiratory failure. The WBC count of 10.8, he was 15.4, platelet count is at 337 and UA is negative. Nitrites are within normal limits. Renal function is also within normal limits. The patient was started on enteric antibiotic coverage with IV Rocephin. The patient is also on IV Solu-Medrol 40 mg every 8 hours. The patient was started on Symbicort and IV fluids with normal saline at the rate of 100 mL an hour. The patient utilizes Symbicort on outpatient basis in addition to DuoNeb. Patient has hypertension hyperlipidemia and history of pernicious anemia. Patient also has history of CHF with chronic systolic heart failure with an ejection fraction of 35-40%. This is based on echocardiogram that was done back in 12/27/2021. She is hoffman ited on metoprolol. She is also on Aldactone on outpatient basis. Note that the cardiac enzymes were also checked and the patient ruled in fot acute NSTMI and the patient is currently on IV Heparin and trop I peaked at 1.7. and the ECG showed normal sinus rhythm. No ST segment elevation.The patient is known to have coronary artery disease. The patient hospitalization approximately year ago and underwent cardiac catheterization by Dr. Duran and this was done on 12/20/2021 revealing normal left main, normal circumflex, normal AV and there was some mild nonobstructive nonocclusive coronary artery disease. On today's evaluation of 02/22/2023, the patient is doing slightly improved compared to yesterday. She is in need for rescue inhaler and I started on Ventolin HFA. She is also on Symbicort. She remains on IV Solu-Medrol. She has Covid 19 infection and his incentive first infection. She has received only 1 single vaccine with J&J brand and this was given to her at the start of the pandemic. She has no other new complaints. The patient is to be seen by cardiology regarding her acute non-ST segment elevation myocardial infarction patient's Jevity chest pain for now. Objective - Vital Signs Vital signs: Vital Signs Temp 97.1 F L 02/22/23 04:00 Pulse 75 02/22/23 04:00 Resp 18 02/22/23 04:00 BP 114/70 02/22/23 04:00 Pulse Ox 93 L 02/22/23 07:37 FiO2 Intake & Output 02/21/23 02/22/23 02/22/23 18:59 06:59 18:59 Intake Total 10 Output Total 400 Balance -390 Weight 60.781 kg 60.781 kg Intake: IV 10 0.9 10 Output: Urine 400 Other: Voiding Method External Catheter - Exam Gen. appearance, the patient is calm and comfortable no acute distress, currently on 4 L of O2 nasal cannula Head exam was generally normal. There was no scleral icterus or corneal arcus. Mucous membranes were moist. Neck was supple and without jugular venous distension, thyromegaly, or carotid bruits. Carotids were easily palpable bilaterally. There was no adenopathy. Lungs sounds are diminished bilaterally along with scattered extremity wheezes Cardiac exam revealed the PMI to be normally situated and sized. The rhythm was regular and no extrasystoles were noted during several minutes of auscultation. The first and second heart sounds were normal and physiologic splitting of the second heart sound was noted. There were no murmurs, rubs, clicks, or gallops. Abdominal exam revealed normal bowel sounds. The abdomen was soft, non-tender, and without masses, organomegaly, or appreciable enlargement of the abdominal aorta. Examination of the extremities revealed easily palpable radial, femoral and pedal pulses. There was no cyanosis, clubbing or edema. Examination of the skin revealed no evidence of significant rashes, suspicious appearing nevi or other concerning lesions. - Labs CBC & Chem 7: 02/22/23 07:09 02/22/23 07:09 Labs: Abnormal Lab Results - Last 24 Hours (Table) 02/21/23 02/21/23 02/21/23 Range/Units 10:48 10:48 10:48 WBC 10.8 H (3.8-10.6) k/uL Hgb (11.4-16.0) gm/dL MCHC 30.4 L (31.0-37.0) g/dL Neutrophils # 9.5 H (1.3-7.7) k/uL Lymphocytes # 0.7 L (1.0-4.8) k/uL PT 9.6 L (10.0-12.5) sec APTT (22.0-30.0) sec D-Dimer (<0.60) mg/L FEU Sodium (137-145) mmol/L Carbon Dioxide (22-30) mmol/L BUN (7-17) mg/dL Creatinine 0.44 L (0.52-1.04) mg/dL Glucose 114 H (74-99) mg/dL Troponin I (0.000-0.034) ng/mL SARS-CoV-2 (PCR) (Not Detectd) 02/21/23 02/21/23 02/21/23 Range/Units 10:48 15:14 16:15 WBC (3.8-10.6) k/uL Hgb (11.4-16.0) gm/dL MCHC (31.0-37.0) g/dL Neutrophils # (1.3-7.7) k/uL Lymphocytes # (1.0-4.8) k/uL PT (10.0-12.5) sec APTT (22.0-30.0) sec D-Dimer 1.20 H (<0.60) mg/L FEU Sodium (137-145) mmol/L Carbon Dioxide (22-30) mmol/L BUN (7-17) mg/dL Creatinine (0.52-1.04) mg/dL Glucose (74-99) mg/dL Troponin I 1.490 H* (0.000-0.034) ng/mL SARS-CoV-2 (PCR) Detected A (Not Detectd) 02/21/23 02/21/23 02/22/23 Range/Units 17:53 23:42 07:09 WBC (3.8-10.6) k/uL Hgb 10.7 L (11.4-16.0) gm/dL MCHC 29.7 L (31.0-37.0) g/dL Neutrophils # (1.3-7.7) k/uL Lymphocytes # 0.8 L (1.0-4.8) k/uL PT (10.0-12.5) sec APTT 67.9 H (22.0-30.0) sec D-Dimer (<0.60) mg/L FEU Sodium (137-145) mmol/L Carbon Dioxide (22-30) mmol/L BUN (7-17) mg/dL Creatinine (0.52-1.04) mg/dL Glucose (74-99) mg/dL Troponin I 1.770 H* (0.000-0.034) ng/mL SARS-CoV-2 (PCR) (Not Detectd) 02/22/23 02/22/23 Range/Units 07:09 07:09 WBC (3.8-10.6) k/uL Hgb (11.4-16.0) gm/dL MCHC (31.0-37.0) g/dL Neutrophils # (1.3-7.7) k/uL Lymphocytes # (1.0-4.8) k/uL PT (10.0-12.5) sec APTT 59.5 H (22.0-30.0) sec D-Dimer (<0.60) mg/L FEU Sodium 131 L (137-145) mmol/L Carbon Dioxide 21 L (22-30) mmol/L BUN 19 H (7-17) mg/dL Creatinine 0.42 L (0.52-1.04) mg/dL Glucose (74-99) mg/dL Troponin I (0.000-0.034) ng/mL SARS-CoV-2 (PCR) (Not Detectd) Assessment and Plan Plan: Acute Covid 19 infection, no clear indication for pneumonia. No significant pneumonia based on CT angiogram findings. No evidence of any pulmonary embolism.. The patient has received vaccination in the past 1 with [employer] and this is a on infection with Covid 19. No previous infections reported. Acute exacerbation of COPD, slightly improved compared to yesterday Acute on top of chronic hypoxic respiratory failure currently on oxygen at 4 L/m nasal cannula, patient is on O2 at 2 L at baseline acute non-ST segment elevation myocardial infarction the patient's troponin peaked at 1.7 pulmonary nodule left upper lobe, measuring 18 mm in size, suspicious for primary bronchogenic carcinoma Coronary artery disease with previous non-ST segment elevation myocardial infarction. His cardiac catheterization showing mild nonobstructive coronary artery disease CHF with impaired LV function, echo cardiac exam showing an ejection fraction of 35-40% Chronic anxiety/depression Hypertension Hyperlipidemia Acid reflux Pernicious anemia, history of Osteoarthritis Plan Titrate oxygen flow to maintain a saturation above 90% No need for antibiotic therapy at this point in time. No clear indication for pneumonia Continue IV Solu-Medrol Resume Symbicort Albuterol HFA 4 times a day IV fluids Continue IV heparin Cardiology consultation is appreciated and the patient will likely need a cardiac catheterization at the later stage Pulmonary nodule will be evaluated on an outpatient basis. The patient will be set need a PET/CT and subsequent bronchoscopy and biopsy specially of the PET scan showed a metabolically avid lesion in the left upper lobe. Need for another catheterization is to be evaluated by cardiology at the later stage Resume home medications We'll continue to follow
--- NOTE | 2023-02-22 13:10 | P.PN ---
Subjective Progress Note Date: 02/22/23 78 year old female with history of recurrent chest pain, asthma, COPD, GERD, hypertension, hyperlipidemia, anxiety/depression who presented to the ER because of worsening shortness of breath. Patient stated that she woke up at 4:00 this morning with worsening shortness of breath. There was no complain of any chest pain. Patient baseline uses 2 L of oxygen but at home she was feeling more short of breath. Patient was complaining of dry cough. Patient tried to use her breathing treatment but that did not work. Patient continued to complain of worsening breathing. There was no complain of orthopnea or PND. Denied any dizziness or lightheadedness. There was no complain of swelling of feet. B ecause his worsening shortness of breath, patient called EMS and they brought her to the ER Initial lab work done in the ER showed WBC 10.8, hemoglobin 13.4, platelet count 377, sodium 139 potassium 4.9, BUN 11, creatinine 0.44 AST 24, AST 17, UA negative for infection Influenza A not detected Influenza B not detected RSV not detected COVID-19 detected EKG done in the ER showed heart rate of 121, no ST segment elevation or depression seen, no T-wave inversions seen. Chest x-ray done in the ER showed left lower lobe airspace opacity For pneumonia Patient admitted to internal medicine service 02/22. Patient seen and examined. States she feels much better compared to yes terday. Breathing has improved. Denies any chest pain. Currently on 2 L of oxygen. REVIEW OF SYSTEMS: CONSTITUTIONAL: No fever, no malaise,. CARDIOVASCULAR: No chest pain, no palpitations, no syncope. PULMONARY: No shortness of breath, no cough, GASTROINTESTINAL: No diarrhea, no nausea, no vomiting, no abdominal pain. NEUROLOGICAL: No headaches, no weakness, PHYSICAL EXAMINATION: GENERAL: The patient is alert and oriented x3, not in any acute distress. Well developed, well nourished. HEENT: Pupils are round and equally reacting to light. EOMI. No scleral icterus. No conjunctival pallor. Normocephalic, atraumatic. No pharyngeal erythema. No thyromegaly. CARDIOVASCULAR: S1 and S2 present. No murmurs, rubs, or gallops. PULMONARY: Chest is clear to auscultation, no wheezing or crackles. ABDOMEN: Soft, nontender, nondistended, normoactive bowel sounds. No palpable organomegaly. MUSCULOSKELETAL: No joint swelling or deformity. EXTREMITIES: No cyanosis, clubbing, or pedal edema. NEUROLOGICAL: Gross neurological examination did not reveal any focal deficits. SKIN: No rashes. Assessment and plan Bacterial pneumonia ruled out Acute on chronic hypoxic respiratory failure Acute COPD exacerbation Non-ST elevation RI COVID-19 infection pulmonary nodule left upper lobe Coronary artery disease with previous non-ST segment elevation myocardial infarction. CHF with impaired LV function, echo cardiac exam showing an ejection fraction of 35-40% Chronic anxiety/depression Hypertension Hyperlipidemia Acid reflux Pernicious anemia, history of Osteoarthritis History of SVT Monitor vital signs Monitor CBC Monitor CMP Continue telemetry monitoring Continue oxygen supplementation Continue azithromycin Continue IV Solu-Medrol Continue breathing treatments Continue pharmacy dose heparin Echo ordered Cardiology following Pulmonary following In regards to hypertension continue Imdur, Lopressor, Aldactone Regards to hyperlipidemia continue Lipitor Labs and medication were reviewed.. Continue same treatment. Continue with symptomatic treatment. Resume home medication. Monitor labs and vitals. DVT and GI prophylaxis. Further recommendations as per clinical course of the patient Dictation was produced using [employer] dictation software. please excuse any grammatical, word or spelling errors. Objective - Vital Signs Vital signs: Vital Signs Temp 97.1 F L 02/22/23 04:00 Pulse 75 02/22/23 04:00 Resp 18 02/22/23 04:00 BP 114/70 02/22/23 04:00 Pulse Ox 93 L 02/22/23 07:37 FiO2 Intake & Output 02/21/23 02/22/23 02/22/23 18:59 06:59 18:59 Intake Total 10 Output Total 400 Balance -390 Weight 60.781 kg 60.781 kg Intake: IV 10 0.9 10 Output: Urine 400 Other: Voiding Method External Catheter - Labs CBC & Chem 7: 02/22/23 07:09 02/22/23 07:09 Labs: Abnormal Lab Results - Last 24 Hours (Table) 02/21/23 02/21/23 02/21/23 Range/Units 10:48 10:48 10:48 WBC 10.8 H (3.8-10.6) k/uL Hgb (11.4-16.0) gm/dL MCHC 30.4 L (31.0-37.0) g/dL Neutrophils # 9.5 H (1.3-7.7) k/uL Lymphocytes # 0.7 L (1.0-4.8) k/uL PT 9.6 L (10.0-12.5) sec APTT (22.0-30.0) sec D-Dimer (<0.60) mg/L FEU Sodium (137-145) mmol/L Carbon Dioxide (22-30) mmol/L BUN (7-17) mg/dL Creatinine 0.44 L (0.52-1.04) mg/dL Glucose 114 H (74-99) mg/dL Troponin I (0.000-0.034) ng/mL SARS-CoV-2 (PCR) (Not Detectd) 02/21/23 02/21/23 02/21/23 Range/Units 10:48 15:14 16:15 WBC (3.8-10.6) k/uL Hgb (11.4-16.0) gm/dL MCHC (31.0-37.0) g/dL Neutrophils # (1.3-7.7) k/uL Lymphocytes # (1.0-4.8) k/uL PT (10.0-12.5) sec APTT (22.0-30.0) sec D-Dimer 1.20 H (<0.60) mg/L FEU Sodium (137-145) mmol/L Carbon Dioxide (22-30) mmol/L BUN (7-17) mg/dL Creatinine (0.52-1.04) mg/dL Glucose (74-99) mg/dL Troponin I 1.490 H* (0.000-0.034) ng/mL SARS-CoV-2 (PCR) Detected A (Not Detectd) 02/21/23 02/21/23 02/22/23 Range/Units 17:53 23:42 07:09 WBC (3.8-10.6) k/uL Hgb 10.7 L (11.4-16.0) gm/dL MCHC 29.7 L (31.0-37.0) g/dL Neutrophils # (1.3-7.7) k/uL Lymphocytes # 0.8 L (1.0-4.8) k/uL PT (10.0-12.5) sec APTT 67.9 H (22.0-30.0) sec D-Dimer (<0.60) mg/L FEU Sodium (137-145) mmol/L Carbon Dioxide (22-30) mmol/L BUN (7-17) mg/dL Creatinine (0.52-1.04) mg/dL Glucose (74-99) mg/dL Troponin I 1.770 H* (0.000-0.034) ng/mL SARS-CoV-2 (PCR) (Not Detectd) 02/22/23 02/22/23 Range/Units 07:09 07:09 WBC (3.8-10.6) k/uL Hgb (11.4-16.0) gm/dL MCHC (31.0-37.0) g/dL Neutrophils # (1.3-7.7) k/uL Lymphocytes # (1.0-4.8) k/uL PT (10.0-12.5) sec APTT 59.5 H (22.0-30.0) sec D-Dimer (<0.60) mg/L FEU Sodium 131 L (137-145) mmol/L Carbon Dioxide 21 L (22-30) mmol/L BUN 19 H (7-17) mg/dL Creatinine 0.42 L (0.52-1.04) mg/dL Glucose (74-99) mg/dL Troponin I (0.000-0.034) ng/mL SARS-CoV-2 (PCR) (Not Detectd)
[2023-02-22] MEDS: ALBUTEROL HFA INHALER INHALATION SCH ×3 (13:25→21:00)
[2023-02-22] MEDS: ONDANSETRON 4 MG/2 ML VIAL IVP PRN (14:40)
[2023-02-22 18:15] LABS: Glucose,Whole Blood 85 mg/dL (70-110)
[2023-02-22 20:23] LABS: Glucose,Whole Blood 86 mg/dL (70-110)
[2023-02-22] MEDS: HEPARIN SOD,PORK IN 0.45% NACL 25,000 UNIT in 0.45% NACL 1 250ML.BAG IV SCH (20:37)
[2023-02-22] MEDS: MONTELUKAST 10 MG TAB PO SCH (20:38)
[2023-02-22] MEDS: ATORVASTATIN 40 MG TAB PO SCH (20:38)
[2023-02-23 06:17] LABS: Glucose,Whole Blood 102 mg/dL (70-110)
[2023-02-23] MEDS: ONDANSETRON 4 MG/2 ML VIAL IVP PRN ×2 (06:17→14:34)
[2023-02-23] MEDS: AZITHROMYCIN 500 MG TAB PO SCH (08:32)
[2023-02-23] MEDS: ISOSORBIDE MONONITRATE ER 30 MG TAB.ER.24H PO SCH (08:32)
[2023-02-23] MEDS: methylPREDNISolone SOD SUCCI 40 MG/ML 1 ML VIAL IV SCH ×3 (08:32→23:20)
[2023-02-23] MEDS: PANTOPRAZOLE 40 MG TABLET PO SCH (08:32)
[2023-02-23] MEDS: METOPROLOL SUCCINATE (ER) 50 MG TAB.ER.24H PO SCH (08:32)
[2023-02-23] MEDS: ACETAMINOPHEN TAB 325 MG TAB PO PRN ×3 (08:32→20:40)
[2023-02-23] MEDS: ALPRAZolam 0.5 MG TAB PO PRN ×3 (08:32→20:40)
[2023-02-23] MEDS: ASPIRIN 81 MG PO SCH (08:32)
[2023-02-23] MEDS: SPIRONOLACTONE 25 MG TAB PO SCH (08:32)
[2023-02-23] MEDS: SERTRALINE 100 MG TAB PO SCH (08:32)
[2023-02-23] MEDS: SYMBICORT 160-4.5 MCG INHALER INHALATION SCH ×2 (09:30→20:56)
[2023-02-23] MEDS: ALBUTEROL HFA INHALER INHALATION SCH ×4 (09:30→20:56)
[2023-02-23 10:38] LABS: HCT 32.8 % (34.0-46.0); HGB 10.8 gm/dL (11.4-16.0); Hypochromasia Slight; MCHC 32.9 g/dL (31.0-37.0); MCV 88.1 fL (80.0-100.0); Mean Platelet Volume 7.7; Platelet Count 293 k/uL (150-450); RBC 3.72 m/uL (3.80-5.40); RDW 14.4 % (11.5-15.5); WBC 5.1 k/uL (3.8-10.6)
[2023-02-23 10:54] LABS: ALT 16 U/L (4-34); AST 24 U/L (14-36); African American GFR (CKD) >90 (>60 ml/min/1.73 sqM); Albumin 3.1 g/dL (3.5-5.0); Alkaline Phosphatase 47 U/L (38-126); Anion Gap 11 mmol/L; Blood Urea Nitrogen 27 mg/dL (7-17); Calcium 8.8 mg/dL (8.4-10.2); Carbon Dioxide 22 mmol/L (22-30); Chloride 98 mmol/L (98-107); Glucose 90 mg/dL (74-99); Non-African American GFR(CKD) >90 (>60 ml/min/1.73 sqM); Potassium 4.6 mmol/L (3.5-5.1); Sodium 131 mmol/L (137-145); Total Bilirubin 0.4 mg/dL (0.2-1.3); Total Protein 5.6 g/dL (6.3-8.2)
--- NOTE | 2023-02-23 11:26 | CA ---
Transthoracic Echo Report Name: Cesia Fried Age: 78 Gender: F : 1945 Exam Date: 02/22/2023 15:24 Exam Location: [place] [facility] Ht (in): 63 Wt (lb): 134 Ordering Physician: Jaskaran Schaefer MD ([id number]) Attending/Referring Phys: Olive BROWN Pharmacy Informatics Specialist Farida Loyola [facility] Procedure CPT: Indications: LV function Cardiac Hx: Technical Quality: Fair Contrast 1: Total Dose (mL): Contrast 2: Total Dose (mL): MEASUREMENTS (Male / Female) Normal Values 2D ECHO LV Diastolic Diameter PLAX 4.0 cm 4.2 - 5.9 / 3.9 - 5.3 cm LV Systolic Diameter PLAX 2.8 cm IVS Diastolic Thickness 1.2 cm 0.6 - 1.0 / 0.6 - 0.9 cm LVPW Diastolic Thickness 1.0 cm 0.6 - 1.0 / 0.6 - 0.9 cm LV Relative Wall Thickness 0.6 LV Diastolic Volume MOD BP 32.6 cm??? 67 - 155 / 56 - 104 cm??? LV Systolic Volume MOD BP 11.9 cm??? 22 - 58 / 19 - 49 cm??? LV Ejection Fraction MOD BP 63.4 % >= 55 % LV Cardiac Index MOD BP 949.5 cm???/min???m??? LV Diastolic Volume MOD 4C 33.0 cm??? LV Systolic Volume MOD 4C 11.3 cm??? LV Ejection Fraction MOD 4C 65.7 % LV Cardiac Index MOD 4C 996.7 cm???/min???m??? LV Diastolic Length 4C 7.2 cm LV Systolic Length 4C 5.9 cm LV Diastolic Volume MOD 2C 31.7 cm??? LV Systolic Volume MOD 2C 12.2 cm??? LV Ejection Fraction MOD 2C 61.6 % LV Cardiac Index MOD 2C 899.7 cm???/min???m??? LV Diastolic Length 2C 7.1 cm LV Systolic Length 2C 5.6 cm DOPPLER Mitral E Point Velocity 46.7 cm/s Mitral A Point Velocity 66.0 cm/s Mitral E to A Ratio 0.7 MV Deceleration Time 192.2 ms LV E' Lateral Velocity 4.9 cm/s Mitral E to LV E' Lateral Ratio 9.4 LV E' Septal Velocity 5.1 cm/s Mitral E to LV E' Septal Ratio 9.2 FINDINGS Left Ventricle Mildly increased left ventricular wall thickness. Left ventricular cavity size normal. Normal left ventricular systolic function with no obvious regional wall motion abnormalities. Left ventricular ejection fraction is estimated at 55- 60%. Right Ventricle Right Atrium Left Atrium Mitral Valve Aortic Valve Tricuspid Valve Pulmonic Valve Pericardium No pericardial effusion. Aorta CONCLUSIONS Limited 2-D echo Mildly increased left ventricular wall thickness Left ventricular ejection fraction 55-60% No pericardial effusion Previewed by: Dr. Jose J Barnes DO (Electronically Signed) Final Date: 23 February 2023 11:25
[2023-02-23 11:44] LABS: Glucose,Whole Blood 92 mg/dL (70-110)
--- NOTE | 2023-02-23 11:51 | P.PN ---
Subjective HISTORY OF PRESENT ILLNESS: Patient examined this morning at the bedside. Patient reports mild shortness of breath and continued coughing. She reports intermittent chest discomfort that only last for a short time and then goes away on its own. She remains on IV heparin. She complains of a headache at the time of examination. She states that she is feeling overall unwell. Echocardiogram completed revealing ejection fraction 55-60% with no obvious regional wall motion abnormalities. PHYSICAL EXAM: VITAL SIGNS: Reviewed. GENERAL: Well-developed in no acute distress. NECK: Supple. No JVD or thyromegaly LUNGS: Respirations even and unlabored. Lungs essentially clear to auscultation bilaterally. HEART: Regular rate and rhythm. S1 and S2 heard. EXTREMITIES: Normal range of motion. No clubbing or cyanosis. Peripheral pulses intact. No lower extremity edema ASSESSMENT: Shortness of breath Acute exacerbation of COPD Acute Covid 19 Non-STEMI Mild nonobstructive CAD, per cardiac catheterization 2021 History of cardiomyopathy with improved EF Hypertension Hyperlipidemia PLAN: Discontinue IV heparin. Begin subcu heparin. Continue current cardiac medications Will consider ischemic workup when patient's acute Covid infection has resolved Further recommendations pending patient's course Nurse practitioner note has been reviewed by physician. Signing provider agrees with the documented findings, assessment, and plan of care. Objective - Vital Signs Vital signs: Vital Signs Temp 97.9 F 02/23/23 08:46 Pulse 73 02/23/23 08:46 Resp 20 02/23/23 08:46 BP 149/81 02/23/23 08:46 Pulse Ox 99 02/23/23 08:46 FiO2 Intake & Output 02/22/23 02/23/23 02/23/23 18:59 06:59 18:59 Intake Total 50 724.174 99.108 Output Total 700 Balance 50 24.174 99.108 Weight 62.5 kg Intake: IV 10 Invasive Line 2 10 Intake, IV Titration 50 184.174 89.108 Amount Heparin Sod,Pork in 0.45% 184.174 89.108 NaCl 25,000 unit In 0.45 % NaCl 1 250ml.bag @ 12 UNITS/KG/HR 7.294 mls/hr IV .Q24H ROMIE Rx#: [id number] cefTRIAXone 2 gm In 50 Sodium Chloride 0.9% 50 ml @ 100 mls/hr IVPB Q24HR ROMIE Rx#:[id number] Oral 540 0 Output: Urine 700 Other: Voiding Method External Catheter External Catheter External Catheter # Voids 2 1 - Labs CBC & Chem 7: 02/23/23 10:14 02/23/23 10:14 Labs: Abnormal Lab Results - Last 24 Hours (Table) 02/22/23 02/23/23 02/23/23 Range/Units 07:09 06:15 10:14 RBC 3.72 L (3.80-5.40) m/uL Hgb 10.8 L (11.4-16.0) gm/dL Hct 32.8 L (34.0-46.0) % APTT 38.7 H (22.0-30.0) sec Sodium (137-145) mmol/L BUN (7-17) mg/dL Total Protein (6.3-8.2) g/dL Albumin (3.5-5.0) g/dL Procalcitonin 0.10 H (0.02-0.09) ng/mL 02/23/23 Range/Units 10:14 RBC (3.80-5.40) m/uL Hgb (11.4-16.0) gm/dL Hct (34.0-46.0) % APTT (22.0-30.0) sec Sodium 131 L (137-145) mmol/L BUN 27 H (7-17) mg/dL Total Protein 5.6 L (6.3-8.2) g/dL Albumin 3.1 L (3.5-5.0) g/dL Procalcitonin (0.02-0.09) ng/mL Microbiology - Last 24 Hours (Table) 02/21/23 13:00 Blood Culture - Preliminary Blood 02/21/23 13:15 Blood Culture - Preliminary Blood
--- NOTE | 2023-02-23 14:26 | P.PN ---
Subjective Progress Note Date: 02/23/23 78 year old female with history of recurrent chest pain, asthma, COPD, GERD, hypertension, hyperlipidemia, anxiety/depression who presented to the ER because of worsening shortness of breath. Patient stated that she woke up at 4:00 this morning with worsening shortness of breath. There was no complain of any chest pain. Patient baseline uses 2 L of oxygen but at home she was feeling more short of breath. Patient was complaining of dry cough. Patient tried to use her breathing treatment but that did not work. Patient continued to complain of worsening breathing. There was no complain of orthopnea or PND. Denied any dizziness or lightheadedness. There was no complain of swelling of feet. B ecause his worsening shortness of breath, patient called EMS and they brought her to the ER Initial lab work done in the ER showed WBC 10.8, hemoglobin 13.4, platelet count 377, sodium 139 potassium 4.9, BUN 11, creatinine 0.44 AST 24, AST 17, UA negative for infection Influenza A not detected Influenza B not detected RSV not detected COVID-19 detected EKG done in the ER showed heart rate of 121, no ST segment elevation or depression seen, no T-wave inversions seen. Chest x-ray done in the ER showed left lower lobe airspace opacity For pneumonia Patient admitted to internal medicine service 02/22. Patient seen and examined. States she feels much better compared to yes terday. Breathing has improved. Denies any chest pain. Currently on 2 L of oxygen. 02/23. Patient seen and examined. No Acute issues overnight. Continues to feel better. Currently on 2 L of oxygen which is her baseline. REVIEW OF SYSTEMS: CONSTITUTIONAL: No fever, no malaise,. CARDIOVASCULAR: No chest pain, no palpitations, no syncope. PULMONARY: No shortness of breath, no cough, GASTROINTESTINAL: No diarrhea, no nausea, no vomiting, no abdominal pain. NEUROLOGICAL: No headaches, no weakness, PHYSICAL EXAMINATION: GENERAL: The patient is alert and oriented x3, not in any acute distress. Well developed, well nourished. HEENT: Pupils are round and equally reacting to light. EOMI. No scleral icterus. No conjunctival pallor. Normocephalic, atraumatic. No pharyngeal erythema. No thyromegaly. CARDIOVASCULAR: S1 and S2 present. No murmurs, rubs, or gallops. PULMONARY: Chest is clear to auscultation, no wheezing or crackles. ABDOMEN: Soft, nontender, nondistended, normoactive bowel sounds. No palpable organomegaly. MUSCULOSKELETAL: No joint swelling or deformity. EXTREMITIES: No cyanosis, clubbing, or pedal edema. NEUROLOGICAL: Gross neurological examination did not reveal any focal deficits. SKIN: No rashes. Assessment and plan Bacterial pneumonia ruled out Acute on chronic hypoxic respiratory failure Acute COPD exacerbation Non-ST elevation OK COVID-19 infection pulmonary nodule left upper lobe Coronary artery disease with previous non-ST segment elevation myocardial infarction. CHF with impaired LV function, echo cardiac exam showing an ejection fraction of 35-40% Chronic anxiety/depression Hypertension Hyperlipidemia Acid reflux Pernicious anemia, history of Osteoarthritis History of SVT Monitor vital signs Monitor CBC Monitor CMP Continue telemetry monitoring Continue oxygen supplementation Continue azithromycin Continue IV Solu-Medrol Continue breathing treatments DC pharmacy dose heparin Echo showed mildly increased left ventricle wall thickness, LVEF of 55-60%. No pericardial effusion Cardiology following Pulmonary following In regards to hypertension continue Imdur, Lopressor, Aldactone Regards to hyperlipidemia continue Lipitor Labs and medication were reviewed.. Continue same treatment. Continue with symptomatic treatment. Resume home medication. Monitor labs and vitals. DVT and GI prophylaxis. Further recommendations as per clinical course of the patient Dictation was produced using [employer] dictation software. please excuse any grammatical, word or spelling errors. Objective - Vital Signs Vital signs: Vital Signs Temp 97.9 F 02/23/23 08:46 Pulse 73 02/23/23 08:46 Resp 20 02/23/23 08:46 BP 149/81 02/23/23 08:46 Pulse Ox 99 02/23/23 08:46 FiO2 Intake & Output 02/22/23 02/23/23 02/23/23 18:59 06:59 18:59 Intake Total 50 724.174 99.108 Output Total 700 Balance 50 24.174 99.108 Weight 62.5 kg Intake: IV 10 Invasive Line 2 10 Intake, IV Titration 50 184.174 89.108 Amount Heparin Sod,Pork in 0.45% 184.174 89.108 NaCl 25,000 unit In 0.45 % NaCl 1 250ml.bag @ 12 UNITS/KG/HR 7.294 mls/hr IV .Q24H [facility] Rx#: [id number] cefTRIAXone 2 gm In 50 Sodium Chloride 0.9% 50 ml @ 100 mls/hr IVPB Q24HR [facility] Rx#:[id number] Oral 540 Output: Urine 700 Other: Voiding Method External Catheter External Catheter External Catheter # Voids 2 - Labs CBC & Chem 7: 02/23/23 10:14 02/23/23 10:14 Labs: Abnormal Lab Results - Last 24 Hours (Table) 02/22/23 02/22/23 02/23/23 Range/Units 07:09 09:46 06:15 APTT 38.7 H (22.0-30.0) sec Troponin I 0.706 H* (0.000-0.034) ng/mL Procalcitonin 0.10 H (0.02-0.09) ng/mL Microbiology - Last 24 Hours (Table) 02/21/23 13:00 Blood Culture - Preliminary Blood 02/21/23 13:15 Blood Culture - Preliminary Blood
[2023-02-23] MEDS: HEPARIN SODIUM,PORCINE 5,000 UNIT/ML 1 ML VIAL SQ SCH ×2 (15:20→23:20)
--- NOTE | 2023-02-23 16:03 | P.PN ---
Subjective Progress Note Date: 02/23/23 This is a 76-year-old female patient who came into the emergency department with worsening shortness of breath. The patient denies having any chest pain. The patient is known to have COPD and the patient uses home O2 at 2 L/m nasal cannula. 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 Gonzalez. The patient also reported some cough. No significant sputum production. No pleurisy. No hemoptysis. No nausea or emesis. His cough was essentially dry. Based on that, he came into the emergency Department. The patient checked positive for Covid 19 infection. Influenza and RSV were both negative. The chest x-ray showed some chronic infiltration of the left lower lobe seen on previous chest x-rays. Currently is on 4 L of oxygen by nasal cannula. A CTA of the chest was also done that confirmed presence of moderate to severe emphysematous changes bilaterally. There was a 80 mm pulmonary nodule in the left upper lobe, irregular borders is highly suspicious for primary bronchogenic carcinoma. No significant infiltrates noted. Small left-sided pleural effusion. Moderate calcification of the aortic branches including coronary artery disease and ectasia of the ascending aorta measuring 3.5 cm in size. No evidence of any pulmonary embolism. Hospitalized for Covid 19 infection and worsening shortness of breath and acute on top of chronic hypoxic respiratory failure. The WBC count of 10.8, he was 15.4, platelet count is at 337 and UA is negative. Nitrites are within normal limits. Renal function is also within normal limits. The patient was started on enteric antibiotic coverage with IV Rocephin. The patient is also on IV Solu-Medrol 40 mg every 8 hours. The patient was started on Symbicort and IV fluids with normal saline at the rate of 100 mL an hour. The patient utilizes Symbicort on outpatient basis in addition to DuoNeb. Patient has hypertension hyperlipidemia and history of pernicious anemia. Patient also has history of CHF with chronic systolic heart failure with an ejection fraction of 35-40%. This is based on echocardiogram that was done back in 12/27/2021. She is hoffman ited on metoprolol. She is also on Aldactone on outpatient basis. Note that the cardiac enzymes were also checked and the patient ruled in fot acute NSTMI and the patient is currently on IV Heparin and trop I peaked at 1.7. and the ECG showed normal sinus rhythm. No ST segment elevation.The patient is known to have coronary artery disease. The patient hospitalization approximately year ago and underwent cardiac catheterization by Dr. Duran and this was done on 12/20/2021 revealing normal left main, normal circumflex, normal AV and there was some mild nonobstructive nonocclusive coronary artery disease. On today's evaluation of 02/22/2023, the patient is doing slightly improved compared to yesterday. She is in need for rescue inhaler and I started on Ventolin HFA. She is also on Symbicort. She remains on IV Solu-Medrol. She has Covid 19 infection and his incentive first infection. She has received only 1 single vaccine with J&J brand and this was given to her at the start of the pandemic. She has no other new complaints. The patient is to be seen by cardiology regarding her acute non-ST segment elevation myocardial infarction patient's Jevity chest pain for now. On today's evaluation of 02/23/2023, the patient is feeling the same as yesterday. Still bronchospastic and wheezy on today's evaluation. She is having cough and congestion. She is currently on 2 L of oxygen by nasal cannula. She remains on IV Solu-Medrol. No new complaints otherwise for now. She is afebrile. The white cycles of 5.1, hemoglobin is 10.8, sodium is at 131, BUN is 27 with a creatinine of 0.57. From the cardiac standpoint, the patient is post acute non-ST segment elevation myocardial infarction. She is off IV heparin is on subcu heparin. Cardiac medications are to be continued. According to the physical function without any obvious segmental wall motion abnormalities. Objective - Vital Signs Vital signs: Vital Signs Temp 98.1 F 02/23/23 12:02 Pulse 74 02/23/23 12:02 Resp 18 02/23/23 12:02 BP 125/78 02/23/23 12:02 Pulse Ox 98 02/23/23 12:02 FiO2 Intake & Output 02/22/23 02/23/23 02/23/23 18:59 06:59 18:59 Intake Total 50 724.174 134.919 Output Total 700 Balance 50 24.174 134.919 Weight 62.5 kg Intake: IV 20 Invasive Line 1 10 Invasive Line 2 10 Intake, IV Titration 50 184.174 114.919 Amount Heparin Sod,Pork in 0.45% 184.174 114.919 NaCl 25,000 unit In 0.45 % NaCl 1 250ml.bag @ 12 UNITS/KG/HR 7.294 mls/hr IV .Q24H [facility] Rx#: [id number] cefTRIAXone 2 gm In 50 Sodium Chloride 0.9% 50 ml @ 100 mls/hr IVPB Q24HR [facility] Rx#:[id number] Oral 540 0 Output: Urine 700 Other: Voiding Method External Catheter External Catheter External Catheter # Voids 2 1 - Exam Gen. appearance, the patient is calm and comfortable no acute distress, currently on 4 L of O2 nasal cannula Head exam was generally normal. There was no scleral icterus or corneal arcus. Mucous membranes were moist. Neck was supple and without jugular venous distension, thyromegaly, or carotid bruits. Carotids were easily palpable bilaterally. There was no adenopathy. Lungs sounds are diminished bilaterally along with scattered extremity wheezes Cardiac exam revealed the PMI to be normally situated and sized. The rhythm was regular and no extrasystoles were noted during several minutes of auscultation. The first and second heart sounds were normal and physiologic splitting of the second heart sound was noted. There were no murmurs, rubs, clicks, or gallops. Abdominal exam revealed normal bowel sounds. The abdomen was soft, non-tender, and without masses, organomegaly, or appreciable enlargement of the abdominal aorta. Examination of the extremities revealed easily palpable radial, femoral and pedal pulses. There was no cyanosis, clubbing or edema. Examination of the skin revealed no evidence of significant rashes, suspicious appearing nevi or other concerning lesions. - Labs CBC & Chem 7: 02/23/23 10:14 02/23/23 10:14 Labs: Abnormal Lab Results - Last 24 Hours (Table) 02/22/23 02/23/23 02/23/23 Range/Units 07:09 06:15 10:14 RBC 3.72 L (3.80-5.40) m/uL Hgb 10.8 L (11.4-16.0) gm/dL Hct 32.8 L (34.0-46.0) % APTT 38.7 H (22.0-30.0) sec Sodium (137-145) mmol/L BUN (7-17) mg/dL Total Protein (6.3-8.2) g/dL Albumin (3.5-5.0) g/dL Procalcitonin 0.10 H (0.02-0.09) ng/mL 02/23/23 Range/Units 10:14 RBC (3.80-5.40) m/uL Hgb (11.4-16.0) gm/dL Hct (34.0-46.0) % APTT (22.0-30.0) sec Sodium 131 L (137-145) mmol/L BUN 27 H (7-17) mg/dL Total Protein 5.6 L (6.3-8.2) g/dL Albumin 3.1 L (3.5-5.0) g/dL Procalcitonin (0.02-0.09) ng/mL Microbiology - Last 24 Hours (Table) 02/21/23 13:00 Blood Culture - Preliminary Blood 02/21/23 13:15 Blood Culture - Preliminary Blood Assessment and Plan Plan: Acute Covid 19 infection, no clear indication for pneumonia. No significant pneumonia based on CT angiogram findings. No evidence of any pulmonary embolism.. The patient has received vaccination in the past 1 with [employer] and this is a on infection with Covid 19. No previous infections reported. Acute exacerbation of COPD, slightly improved compared to yesterday, however she is not fully recovered that she remains symptomatic. Acute on top of chronic hypoxic respiratory failure currently on oxygen at 4 L/m nasal cannula, patient is on O2 at 2 L at baseline acute non-ST segment elevation myocardial infarction the patient's troponin p eaked at 1.7 pulmonary nodule left upper lobe, measuring 18 mm in size, suspicious for primary bronchogenic carcinoma Coronary artery disease with previous non-ST segment elevation myocardial infarc tion. His cardiac catheterization showing mild nonobstructive coronary artery disease CHF with impaired LV function, echo cardiac exam showing an ejection fraction of 35-40%, repeat echocardiogram shows an ejection fraction of 55-60% without any segmental wall motion abnormalities. Chronic anxiety/depression Hypertension Hyperlipidemia Acid reflux Pernicious anemia, history of Osteoarthritis Plan Titrate oxygen flow to maintain a saturation above 90% currently on 2 L of Oxymizer nasal cannula No need for antibiotic therapy at this point in time. No clear indication for pneumonia Continue IV Solu-Medrol this will be continued at the same dose Resume Symbicort Albuterol HFA 4 times a day IV fluids Start IV heparin and put the patient on a subcu heparin for prophylaxis Echocardiogram shows a preserved LV function Cardiology consultation is appreciated and the patient will likely need a cardiac catheterization at the later stage Pulmonary nodule will be evaluated on an outpatient basis. The patient will be set need a PET/CT and subsequent bronchoscopy and biopsy specially of the PET scan showed a metabolically avid lesion in the left upper lobe. Need for another catheterization is to be evaluated by cardiology at the later stage Resume home medications We'll continue to follow
[2023-02-23 16:40] LABS: Glucose,Whole Blood 97 mg/dL (70-110)
[2023-02-23 19:52] LABS: Glucose,Whole Blood 115 mg/dL (70-110)
[2023-02-23] MEDS: MONTELUKAST 10 MG TAB PO SCH (20:40)
[2023-02-23] MEDS: ATORVASTATIN 40 MG TAB PO SCH (20:40)
[2023-02-24 05:55] LABS: Glucose,Whole Blood 121 mg/dL (70-110)
[2023-02-24] MEDS: ALPRAZolam 0.5 MG TAB PO PRN ×3 (07:46→21:21)
[2023-02-24] MEDS: SPIRONOLACTONE 25 MG TAB PO SCH (07:46)
[2023-02-24] MEDS: SERTRALINE 100 MG TAB PO SCH (07:46)
[2023-02-24] MEDS: PANTOPRAZOLE 40 MG TABLET PO SCH (07:46)
[2023-02-24] MEDS: methylPREDNISolone SOD SUCCI 40 MG/ML 1 ML VIAL IV SCH ×3 (07:47→23:13)
[2023-02-24] MEDS: ASPIRIN 81 MG PO SCH (07:47)
[2023-02-24] MEDS: ISOSORBIDE MONONITRATE ER 30 MG TAB.ER.24H PO SCH (07:47)
[2023-02-24] MEDS: METOPROLOL SUCCINATE (ER) 50 MG TAB.ER.24H PO SCH (07:47)
[2023-02-24] MEDS: HEPARIN SODIUM,PORCINE 5,000 UNIT/ML 1 ML VIAL SQ SCH ×3 (07:47→23:13)
[2023-02-24 08:00] LABS: HCT 33.7 % (34.0-46.0); HGB 10.8 gm/dL (11.4-16.0); MCH 28.1 pg (25.0-35.0); MCHC 32.1 g/dL (31.0-37.0); MCV 87.8 fL (80.0-100.0); Mean Platelet Volume 7.7; Platelet Count 304 k/uL (150-450); RBC 3.83 m/uL (3.80-5.40); RDW 14.4 % (11.5-15.5)
[2023-02-24 08:30] LABS: ALT 15 U/L (4-34); AST 18 U/L (14-36); African American GFR (CKD) >90 (>60 ml/min/1.73 sqM); Albumin 3.3 g/dL (3.5-5.0); Alkaline Phosphatase 49 U/L (38-126); Anion Gap 5 mmol/L; Blood Urea Nitrogen 22 mg/dL (7-17); Calcium 9.2 mg/dL (8.4-10.2); Carbon Dioxide 29 mmol/L (22-30); Chloride 100 mmol/L (98-107); Glucose 113 mg/dL (74-99); Non-African American GFR(CKD) 87 (>60 ml/min/1.73 sqM); Potassium 4.6 mmol/L (3.5-5.1); Sodium 134 mmol/L (137-145); Total Bilirubin 0.4 mg/dL (0.2-1.3); Total Protein 5.8 g/dL (6.3-8.2)
[2023-02-24] MEDS: ALBUTEROL HFA INHALER INHALATION SCH ×4 (09:35→21:52)
[2023-02-24] MEDS: SYMBICORT 160-4.5 MCG INHALER INHALATION SCH ×2 (09:35→21:50)
[2023-02-24 11:21] LABS: Glucose,Whole Blood 103 mg/dL (70-110)
--- NOTE | 2023-02-24 12:07 | P.PN ---
Subjective Progress Note Date: 02/24/23 This is a 76-year-old female patient who came into the emergency department with worsening shortness of breath. The patient denies having any chest pain. The patient is known to have COPD and the patient uses home O2 at 2 L/m nasal cannula. 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 Gonzalez. The patient also reported some cough. No significant sputum production. No pleurisy. No hemoptysis. No nausea or emesis. His cough was essentially dry. Based on that, he came into the emergency Department. The patient checked positive for Covid 19 infection. Influenza and RSV were both negative. The chest x-ray showed some chronic infiltration of the left lower lobe seen on previous chest x-rays. Currently is on 4 L of oxygen by nasal cannula. A CTA of the chest was also done that confirmed presence of moderate to severe emphysematous changes bilaterally. There was a 80 mm pulmonary nodule in the left upper lobe, irregular borders is highly suspicious for primary bronchogenic carcinoma. No significant infiltrates noted. Small left-sided pleural effusion. Moderate calcification of the aortic branches including coronary artery disease and ectasia of the ascending aorta measuring 3.5 cm in size. No evidence of any pulmonary embolism. Hospitalized for Covid 19 infection and worsening shortness of breath and acute on top of chronic hypoxic respiratory failure. The WBC count of 10.8, he was 15.4, platelet count is at 337 and UA is negative. Nitrites are within normal limits. Renal function is also within normal limits. The patient was started on enteric antibiotic coverage with IV Rocephin. The patient is also on IV Solu-Medrol 40 mg every 8 hours. The patient was started on Symbicort and IV fluids with normal saline at the rate of 100 mL an hour. The patient utilizes Symbicort on outpatient basis in addition to DuoNeb. Patient has hypertension hyperlipidemia and history of pernicious anemia. Patient also has history of CHF with chronic systolic heart failure with an ejection fraction of 35-40%. This is based on echocardiogram that was done back in 12/27/2021. She is hoffman ited on metoprolol. She is also on Aldactone on outpatient basis. Note that the cardiac enzymes were also checked and the patient ruled in fot acute NSTMI and the patient is currently on IV Heparin and trop I peaked at 1.7. and the ECG showed normal sinus rhythm. No ST segment elevation.The patient is known to have coronary artery disease. The patient hospitalization approximately year ago and underwent cardiac catheterization by Dr. Duran and this was done on 12/20/2021 revealing normal left main, normal circumflex, normal AV and there was some mild nonobstructive nonocclusive coronary artery disease. On today's evaluation of 02/22/2023, the patient is doing slightly improved compared to yesterday. She is in need for rescue inhaler and I started on Ventolin HFA. She is also on Symbicort. She remains on IV Solu-Medrol. She has Covid 19 infection and his incentive first infection. She has received only 1 single vaccine with J&J brand and this was given to her at the start of the pandemic. She has no other new complaints. The patient is to be seen by cardiology regarding her acute non-ST segment elevation myocardial infarction patient's Jevity chest pain for now. On today's evaluation of 02/23/2023, the patient is feeling the same as yesterday. Still bronchospastic and wheezy on today's evaluation. She is having cough and congestion. She is currently on 2 L of oxygen by nasal cannula. She remains on IV Solu-Medrol. No new complaints otherwise for now. She is afebrile. The white cycles of 5.1, hemoglobin is 10.8, sodium is at 131, BUN is 27 with a creatinine of 0.57. From the cardiac standpoint, the patient is post acute non-ST segment elevation myocardial infarction. She is off IV heparin is on subcu heparin. Cardiac medications are to be continued. According to the physical function without any obvious segmental wall motion abnormalities. On 02/24/2023, I'm seeing the patient for a follow-up. She is coughing yellowish sputum in the sputum be sent for cultures. She is on no antibiotics for now. She remains on steroids. She is being treated for an acute COPD exacerbation. She also has positive Covid 19. White cell count is at 4 with a hemoglobin of 10.8, BUN is at 22 with a creatinine of 0.6 and the patient has been on 2 L of oxygen by nasal cannula with a pulse ox of 98%. She is afebrile. No other complaints otherwise for now. Objective - Vital Signs Vital signs: Vital Signs Temp 98.0 F 02/24/23 07:45 Pulse 75 02/24/23 07:45 Resp 18 02/24/23 07:45 BP 151/90 02/24/23 07:45 Pulse Ox 98 02/24/23 09:36 FiO2 Intake & Output 02/23/23 02/24/23 02/24/23 18:59 06:59 18:59 Intake Total 254.919 782 480 Output Total 575 1200 Balance -320.081 -418 480 Intake: IV 20 20 Invasive Line 1 10 20 Invasive Line 2 10 Intake, IV Titration 114.919 Amount Heparin Sod,Pork in 0.45% 114.919 NaCl 25,000 unit In 0.45 % NaCl 1 250ml.bag @ 12 UNITS/KG/HR 7.294 mls/hr IV .Q24H [facility] Rx#: [id number] Oral 120 762 480 Output: Urine 575 1200 Other: Voiding Method External Catheter External Catheter # Voids 1 - Exam Gen. appearance, the patient is calm and comfortable no acute distress, currently on 4 L of O2 nasal cannula Head exam was generally normal. There was no scleral icterus or corneal arcus. Mucous membranes were moist. Neck was supple and without jugular venous distension, thyromegaly, or carotid bruits. Carotids were easily palpable bilaterally. There was no adenopathy. Lungs sounds are diminished bilaterally along with scattered extremity wheezes Cardiac exam revealed the PMI to be normally situated and sized. The rhythm was regular and no extrasystoles were noted during several minutes of auscultation. The first and second heart sounds were normal and physiologic splitting of the second heart sound was noted. There were no murmurs, rubs, clicks, or gallops. Abdominal exam revealed normal bowel sounds. The abdomen was soft, non-tender, and without masses, organomegaly, or appreciable enlargement of the abdominal aorta. Examination of the extremities revealed easily palpable radial, femoral and pedal pulses. There was no cyanosis, clubbing or edema. Examination of the skin revealed no evidence of significant rashes, suspicious appearing nevi or other concerning lesions. - Labs CBC & Chem 7: 02/24/23 07:26 02/24/23 07:26 Labs: Abnormal Lab Results - Last 24 Hours (Table) 02/23/23 02/23/23 02/23/23 Range/Units 10:14 10:14 19:50 RBC 3.72 L (3.80-5.40) m/uL Hgb 10.8 L (11.4-16.0) gm/dL Hct 32.8 L (34.0-46.0) % Sodium 131 L (137-145) mmol/L BUN 27 H (7-17) mg/dL Glucose (74-99) mg/dL POC Glucose (mg/dL) 115 H (70-110) mg/dL Total Protein 5.6 L (6.3-8.2) g/dL Albumin 3.1 L (3.5-5.0) g/dL 02/24/23 02/24/23 02/24/23 Range/Units 05:53 07:26 07:26 RBC (3.80-5.40) m/uL Hgb 10.8 L (11.4-16.0) gm/dL Hct 33.7 L (34.0-46.0) % Sodium 134 L (137-145) mmol/L BUN 22 H (7-17) mg/dL Glucose 113 H (74-99) mg/dL POC Glucose (mg/dL) 121 H (70-110) mg/dL Total Protein 5.8 L (6.3-8.2) g/dL Albumin 3.3 L (3.5-5.0) g/dL Microbiology - Last 24 Hours (Table) 02/23/23 09:58 Gram Stain - Preliminary Sputum 02/21/23 13:00 Blood Culture - Preliminary Blood 02/21/23 13:15 Blood Culture - Preliminary Blood Assessment and Plan Plan: Acute Covid 19 infection, no clear indication for pneumonia. No significant pneumonia based on CT angiogram findings. No evidence of any pulmonary embolism.. The patient has received vaccination in the past 1 with [employer] and this is a on infection with Covid 19. No previous infections reported. Acute exacerbation of COPD, slightly improved compared to yesterday, however she is not fully recovered that she remains symptomatic. Acute on top of chronic hypoxic respiratory failure currently on oxygen at 4 L/m nasal cannula, patient is on O2 at 2 L at baseline acute non-ST segment elevation myocardial infarction the patient's troponin peaked at 1.7 pulmonary nodule left upper lobe, measuring 18 mm in size, suspicious for primary bronchogenic carcinoma Coronary artery disease with previous non-ST segment elevation myocardial infarction. His cardiac catheterization showing mild nonobstructive coronary artery disease CHF with impaired LV function, echo cardiac exam showing an ejection fraction of 35-40%, repeat echocardiogram shows an ejection fraction of 55-60% without any segmental wall motion abnormalities. Chronic anxiety/depression Hypertension Hyperlipidemia Acid reflux Pernicious anemia, history of Osteoarthritis Plan Patient is producing purulent sputum. We'll culture the sputum for now. Oxygenation is stable Titrate oxygen flow to maintain a saturation above 90% currently on 2 L of O2 nasal cannula No clear indication for pneumonia, Procan was at 0.1 Continue IV Solu-Medrol this will be continued at the same dose Resume Symbicort Albuterol HFA 4 times a day IV fluids subcu heparin for prophylaxis Echocardiogram shows a preserved LV function Cardiology consultation is appreciated and the patient will likely need a cardiac catheterization at the later stage Pulmonary nodule will be evaluated on an outpatient basis. The patient will be set need a PET/CT and subsequent bronchoscopy and biopsy specially of the PET scan showed a metabolically avid lesion in the left upper lobe. Need for another catheterization is to be evaluated by cardiology at the later stage Resume home medications We'll continue to follow
--- NOTE | 2023-02-24 14:29 | P.PN ---
Subjective Progress Note Date: 02/24/23 78 year old female with history of recurrent chest pain, asthma, COPD, GERD, hypertension, hyperlipidemia, anxiety/depression who presented to the ER because of worsening shortness of breath. Patient stated that she woke up at 4:00 this morning with worsening shortness of breath. There was no complain of any chest pain. Patient baseline uses 2 L of oxygen but at home she was feeling more short of breath. Patient was complaining of dry cough. Patient tried to use her breathing treatment but that did not work. Patient continued to complain of worsening breathing. There was no complain of orthopnea or PND. Denied any dizziness or lightheadedness. There was no complain of swelling of feet. B ecause his worsening shortness of breath, patient called EMS and they brought her to the ER Initial lab work done in the ER showed WBC 10.8, hemoglobin 13.4, platelet count 377, sodium 139 potassium 4.9, BUN 11, creatinine 0.44 AST 24, AST 17, UA negative for infection Influenza A not detected Influenza B not detected RSV not detected COVID-19 detected EKG done in the ER showed heart rate of 121, no ST segment elevation or depression seen, no T-wave inversions seen. Chest x-ray done in the ER showed left lower lobe airspace opacity For pneumonia Patient admitted to internal medicine service 02/22. Patient seen and examined. States she feels much better compared to yes terday. Breathing has improved. Denies any chest pain. Currently on 2 L of oxygen. 02/23. Patient seen and examined. No Acute issues overnight. Continues to feel better. Currently on 2 L of oxygen which is her baseline. 02/24. Patient seen and examined. Lab work done showed WBC 4, hemoglobin 10.8, platelet count 304, sodium 134, potassium 4.6, BUN 22, creatinine 0.64. States her chest feels congested. Able to take deep breaths but gets short of breath and exertion. REVIEW OF SYSTEMS: CONSTITUTIONAL: No fever, no malaise,. CARDIOVASCULAR: No chest pain, no palpitations, no syncope. PULMONARY: As mentioned above GASTROINTESTINAL: No diarrhea, no nausea, no vomiting, no abdominal pain. NEUROLOGICAL: No headaches, no weakness, PHYSICAL EXAMINATION: GENERAL: The patient is alert and oriented x3, not in any acute distress. Well developed, well nourished. HEENT: Pupils are round and equally reacting to light. EOMI. No scleral icterus. No conjunctival pallor. Normocephalic, atraumatic. No pharyngeal erythema. No thyromegaly. CARDIOVASCULAR: S1 and S2 present. No murmurs, rubs, or gallops. PULMONARY: Chest is clear to auscultation, no wheezing or crackles. ABDOMEN: Soft, nontender, nondistended, normoactive bowel sounds. No palpable organomegaly. MUSCULOSKELETAL: No joint swelling or deformity. EXTREMITIES: No cyanosis, clubbing, or pedal edema. NEUROLOGICAL: Gross neurological examination did not reveal any focal deficits. SKIN: No rashes. Assessment and plan Bacterial pneumonia ruled out Acute on chronic hypoxic respiratory failure Acute COPD exacerbation Non-ST elevation IA COVID-19 infection pulmonary nodule left upper lobe Coronary artery disease with previous non-ST segment elevation myocardial infarction. CHF with impaired LV function, echo cardiac exam showing an ejection fraction of 35-40% Chronic anxiety/depression Hypertension Hyperlipidemia Acid reflux Pernicious anemia, history of Osteoarthritis History of SVT Monitor vital signs Monitor CBC Monitor CMP Continue telemetry monitoring Continue oxygen supplementation Continue azithromycin Continue IV Solu-Medrol Continue breathing treatments Echo showed mildly increased left ventricle wall thickness, LVEF of 55-60%. No pericardial effusion Cardiology following, recommend ischemic workup once COVID-19 has resolved Pulmonary following In regards to hypertension continue Imdur, Lopressor, Aldactone Regards to hyperlipidemia continue Lipitor Labs and medication were reviewed.. Continue same treatment. Continue with symptomatic treatment. Resume home medication. Monitor labs and vitals. DVT and GI prophylaxis. Further recommendations as per clinical course of the patient Dictation was produced using [employer] dictation software. please excuse any grammatical, word or spelling errors. Objective - Vital Signs Vital signs: Vital Signs Temp 98.0 F 02/24/23 07:45 Pulse 75 02/24/23 07:45 Resp 18 02/24/23 07:45 BP 151/90 02/24/23 07:45 Pulse Ox 98 02/24/23 09:36 FiO2 Intake & Output 02/23/23 02/24/23 02/24/23 18:59 06:59 18:59 Intake Total 254.919 782 712 Output Total 575 1200 Balance -320.081 -418 712 Intake: IV 20 20 10 Invasive Line 1 10 20 10 Invasive Line 2 10 Intake, IV Titration 114.919 Amount Heparin Sod,Pork in 0.45% 114.919 NaCl 25,000 unit In 0.45 % NaCl 1 250ml.bag @ 12 UNITS/KG/HR 7.294 mls/hr IV .Q24H [facility] [place] Rx#: [id number] Oral 120 762 702 Output: Urine 575 1200 Other: Voiding Method External Catheter External Catheter External Catheter # Voids 1 - Labs CBC & Chem 7: 02/24/23 07:26 02/24/23 07:26 Labs: Abnormal Lab Results - Last 24 Hours (Table) 02/23/23 02/24/23 02/24/23 Range/Units 19:50 05:53 07:26 Hgb 10.8 L (11.4-16.0) gm/dL Hct 33.7 L (34.0-46.0) % Sodium (137-145) mmol/L BUN (7-17) mg/dL Glucose (74-99) mg/dL POC Glucose (mg/dL) 115 H 121 H (70-110) mg/dL Total Protein (6.3-8.2) g/dL Albumin (3.5-5.0) g/dL 02/24/23 Range/Units 07:26 Hgb (11.4-16.0) gm/dL Hct (34.0-46.0) % Sodium 134 L (137-145) mmol/L BUN 22 H (7-17) mg/dL Glucose 113 H (74-99) mg/dL POC Glucose (mg/dL) (70-110) mg/dL Total Protein 5.8 L (6.3-8.2) g/dL Albumin 3.3 L (3.5-5.0) g/dL Microbiology - Last 24 Hours (Table) 02/23/23 09:58 Gram Stain - Preliminary Sputum 02/21/23 13:00 Blood Culture - Preliminary Blood 02/21/23 13:15 Blood Culture - Preliminary Blood
[2023-02-24] MEDS: ACETAMINOPHEN TAB 325 MG TAB PO PRN ×2 (15:08→21:19)
[2023-02-24] MEDS: ONDANSETRON 4 MG/2 ML VIAL IVP PRN (15:10)
[2023-02-24] MEDS: LEVOFLOXACIN 750 MG TAB PO SCH (16:39)
[2023-02-24 16:48] LABS: Glucose,Whole Blood 144 mg/dL (70-110)
[2023-02-24 20:12] LABS: Glucose,Whole Blood 99 mg/dL (70-110)
[2023-02-24] MEDS: ATORVASTATIN 40 MG TAB PO SCH (21:18)
[2023-02-24] MEDS: MONTELUKAST 10 MG TAB PO SCH (21:19)
[2023-02-25 05:27] LABS: Glucose,Whole Blood 121 mg/dL (70-110)
[2023-02-25] MEDS: HEPARIN SODIUM,PORCINE 5,000 UNIT/ML 1 ML VIAL SQ SCH ×3 (07:43→22:51)
[2023-02-25] MEDS: ACETAMINOPHEN TAB 325 MG TAB PO PRN ×3 (07:44→21:31)
[2023-02-25] MEDS: ISOSORBIDE MONONITRATE ER 30 MG TAB.ER.24H PO SCH (07:44)
[2023-02-25] MEDS: ASPIRIN 81 MG PO SCH (07:44)
[2023-02-25] MEDS: SERTRALINE 100 MG TAB PO SCH (07:44)
[2023-02-25] MEDS: methylPREDNISolone SOD SUCCI 40 MG/ML 1 ML VIAL IV SCH ×3 (07:44→22:52)
[2023-02-25] MEDS: METOPROLOL SUCCINATE (ER) 50 MG TAB.ER.24H PO SCH (07:44)
[2023-02-25] MEDS: LEVOFLOXACIN 750 MG TAB PO SCH (07:44)
[2023-02-25] MEDS: SPIRONOLACTONE 25 MG TAB PO SCH (07:44)
[2023-02-25] MEDS: ALPRAZolam 0.5 MG TAB PO PRN ×3 (07:45→21:31)
[2023-02-25] MEDS: PANTOPRAZOLE 40 MG TABLET PO SCH (07:45)
[2023-02-25] MEDS: ONDANSETRON 4 MG/2 ML VIAL IVP PRN ×2 (07:49→14:38)
[2023-02-25] MEDS: ALBUTEROL HFA INHALER INHALATION SCH ×4 (08:37→21:10)
[2023-02-25] MEDS: SYMBICORT 160-4.5 MCG INHALER INHALATION SCH ×2 (08:38→21:10)
[2023-02-25 11:19] LABS: Glucose,Whole Blood 99 mg/dL (70-110)
--- NOTE | 2023-02-25 13:36 | P.PN ---
Subjective Progress Note Date: 02/25/23 This is a 76-year-old female patient who came into the emergency department with worsening shortness of breath. The patient denies having any chest pain. The patient is known to have COPD and the patient uses home O2 at 2 L/m nasal cannula. His primary quarter backer Dr. Gonzalez. The patient also reported some cough. No significant sputum production. No pleurisy. No hemoptysis. No nausea or emesis. His cough was essentially dry. Based on that, he came into the emergency Department. The patient checked positive for Covid 19 infection. Influenza and RSV were both negative. The chest x-ray showed some chronic infiltration of the left lower lobe seen on previous chest x-rays. Currently is on 4 L of oxygen by nasal cannula. A CTA of the chest was also done that confirmed presence of moderate to severe emphysematous changes bilaterally. There was a 80 mm pulmonary nodule in the left upper lobe, irregular borders is highly suspicious for primary bronchogenic carcinoma. No significant infiltrates noted. Small left-sided pleural effusion. Moderate calcification of the aortic branches including coronary artery disease and ectasia of the ascending aorta measuring 3.5 cm in size. No evidence of any pulmonary embolism. Hospitalized for Covid 19 infection and worsening shortness of breath and acute on top of chronic hypoxic respiratory failure. The WBC count of 10.8, he was 15.4, platelet count is at 337 and UA is negative. Nitrites are within normal limits. Renal function is also within normal limits. The patient was started on enteric antibiotic coverage with IV Rocephin. The patient is also on IV Solu-Medrol 40 mg every 8 hours. The patient was started on Symbicort and IV fluids with normal saline at the rate of 100 mL an hour. The patient utilizes Symbicort on outpatient basis in addition to DuoNeb. Patient has hypertension hyperlipidemia and history of pernicious anemia. Patient also has history of CHF with chronic systolic heart failure with an ejection fraction of 35-40%. This is based on echocardiogram that was done back in 12/27/2021. She is hoffman ited on metoprolol. She is also on Aldactone on outpatient basis. Note that the cardiac enzymes were also checked and the patient ruled in fot acute NSTMI and the patient is currently on IV Heparin and trop I peaked at 1.7. and the ECG showed normal sinus rhythm. No ST segment elevation.The patient is known to have coronary artery disease. The patient hospitalization approximately year ago and underwent cardiac catheterization by Dr. Duran and this was done on 12/20/2021 revealing normal left main, normal circumflex, normal AV and there was some mild nonobstructive nonocclusive coronary artery disease. On today's evaluation of 02/22/2023, the patient is doing slightly improved compared to yesterday. She is in need for rescue inhaler and I started on Ventolin HFA. She is also on Symbicort. She remains on IV Solu-Medrol. She has Covid 19 infection and his incentive first infection. She has received only 1 single vaccine with J&J brand and this was given to her at the start of the pandemic. She has no other new complaints. The patient is to be seen by cardiology regarding her acute non-ST segment elevation myocardial infarction patient's Jevity chest pain for now. On today's evaluation of 02/23/2023, the patient is feeling the same as yesterday. Still bronchospastic and wheezy on today's evaluation. She is having cough and congestion. She is currently on 2 L of oxygen by nasal cannula. She remains on IV Solu-Medrol. No new complaints otherwise for now. She is afebrile. The white cycles of 5.1, hemoglobin is 10.8, sodium is at 131, BUN is 27 with a creatinine of 0.57. From the cardiac standpoint, the patient is post acute non-ST segment elevation myocardial infarction. She is off IV heparin is on subcu heparin. Cardiac medications are to be continued. According to the physical function without any obvious segmental wall motion abnormalities. On 02/24/2023, I'm seeing the patient for a follow-up. She is coughing yellowish sputum in the sputum be sent for cultures. She is on no antibiotics for now. She remains on steroids. She is being treated for an acute COPD exacerbation. She also has positive Covid 19. White cell count is at 4 with a hemoglobin of 10.8, BUN is at 22 with a creatinine of 0.6 and the patient has been on 2 L of oxygen by nasal cannula with a pulse ox of 98%. She is afebrile. No other complaints otherwise for now. On 02/25/2023, I'm seeing the patient for a follow-up. The patient is still being treated for an acute COPD exacerbation. She remains on the on updrafts, Symbicort and IV Solu-Medrol. Note that the sputum turned out to be positive for pseudomonas aeruginosa, quinolone sensitive. Noted the patient is currently on Levaquin 750 mg by mouth daily. She is still struggling with her breathing. Limited improvement since yesterday. Remains on oxygen 2 L/m there are cannula. She is also positive for Covid 19. Objective - Vital Signs Vital signs: Vital Signs Temp 97.9 F 02/25/23 07:27 Pulse 71 02/25/23 07:27 Resp 20 02/25/23 07:27 BP 155/98 02/25/23 07:27 Pulse Ox 98 02/25/23 07:27 FiO2 Intake & Output 02/24/23 02/25/23 02/25/23 18:59 06:59 18:59 Intake Total 712 Output Total 1150 Balance 712 -1150 Weight 62 kg Intake: IV 10 Invasive Line 1 10 Oral 702 Output: Urine 1150 Other: Voiding Method External Catheter External Catheter External Catheter # Voids 1 - Exam Gen. appearance, the patient is calm and comfortable no acute distress, currently on 2 L of O2 nasal cannula Head exam was generally normal. There was no scleral icterus or corneal arcus. Mucous membranes were moist. Neck was supple and without jugular venous distension, thyromegaly, or carotid bruits. Carotids were easily palpable bilaterally. There was no adenopathy. Lungs sounds are diminished bilaterally along with scattered extremity wheezes Cardiac exam revealed the PMI to be normally situated and sized. The rhythm was regular and no extrasystoles were noted during several minutes of auscultation. The first and second heart sounds were normal and physiologic splitting of the second heart sound was noted. There were no murmurs, rubs, clicks, or gallops. Abdominal exam revealed normal bowel sounds. The abdomen was soft, non-tender, and without masses, organomegaly, or appreciable enlargement of the abdominal aorta. Examination of the extremities revealed easily palpable radial, femoral and pedal pulses. There was no cyanosis, clubbing or edema. Examination of the skin revealed no evidence of significant rashes, suspicious appearing nevi or other concerning lesions. - Labs CBC & Chem 7: 02/24/23 07:26 02/24/23 07:26 Labs: Abnormal Lab Results - Last 24 Hours (Table) 02/24/23 02/25/23 Range/Units 16:47 05:26 POC Glucose (mg/dL) 144 H 121 H (70-110) mg/dL Microbiology - Last 24 Hours (Table) 02/21/23 13:00 Blood Culture - Preliminary Blood 02/21/23 13:15 Blood Culture - Preliminary Blood 02/23/23 09:58 Gram Stain - Preliminary Sputum Sputum Culture - Preliminary Pseudomonas spec Assessment and Plan Plan: Acute Covid 19 infection, no clear indication for pneumonia. No significant pneumonia based on CT angiogram findings. No evidence of any pulmonary embolism.. The patient has received vaccination in the past 1 with Qustreet and this is a on infection with Covid 19. No previous infections reported. The patient remains on IV Solu-Medrol. Pseudomonas was also cultured in the sputum. Colonization versus true infection. The patient is currently on Levaquin. There may be a true infection as the patient is producing copious amount of rest or secretions, not typical of Covid 19. Acute exacerbation of COPD, slightly improved compared to yesterday, however she is not fully recovered that she remains symptomatic. Acute on top of chronic hypoxic respiratory failure currently on oxygen at 4 L/m nasal cannula, patient is on O2 at 2 L at baseline acute non-ST segment elevation myocardial infarction the patient's troponin peaked at 1.7 pulmonary nodule left upper lobe, measuring 18 mm in size, suspicious for prima ry bronchogenic carcinoma Coronary artery disease with previous non-ST segment elevation myocardial infarction. His cardiac catheterization showing mild nonobstructive coronary artery disease CHF with impaired LV function, echo cardiac exam showing an ejection fraction of 35-40%, repeat echocardiogram shows an ejection fraction of 55-60% without any segmental wall motion abnormalities. Chronic anxiety/depression Hypertension Hyperlipidemia Acid reflux Pernicious anemia, history of Osteoarthritis Plan Patient was started on Levaquin yesterday. This will be continued regarding the Pseudomonas in the sputum. Oxygenation is stable, currently on 2 L Titrate oxygen flow to maintain a saturation above 90% currently on 2 L of O2 nasal cannula No clear indication for pneumonia, Procan was at 0.1 Continue IV Solu-Medrol this will be continued at the same dose Resume Symbicort Albuterol HFA 4 times a day IV fluids subcu heparin for prophylaxis Echocardiogram shows a preserved LV function Cardiology consultation is appreciated and the patient will likely need a cardiac catheterization at the later stage Pulmonary nodule will be evaluated on an outpatient basis. The patient will be set need a PET/CT and subsequent bronchoscopy and biopsy specially of the PET scan showed a metabolically avid lesion in the left upper lobe. Need for another catheterization is to be evaluated by cardiology at the later stage Resume home medications We'll continue to follow
--- NOTE | 2023-02-25 14:39 | P.PN ---
Subjective Progress Note Date: 02/25/23 78 year old female with history of recurrent chest pain, asthma, COPD, GERD, hypertension, hyperlipidemia, anxiety/depression who presented to the ER because of worsening shortness of breath. Patient stated that she woke up at 4:00 this morning with worsening shortness of breath. There was no complain of any chest pain. Patient baseline uses 2 L of oxygen but at home she was feeling more short of breath. Patient was complaining of dry cough. Patient tried to use her breathing treatment but that did not work. Patient continued to complain of worsening breathing. There was no complain of orthopnea or PND. Denied any dizziness or lightheadedness. There was no complain of swelling of feet. B ecause his worsening shortness of breath, patient called EMS and they brought her to the ER Initial lab work done in the ER showed WBC 10.8, hemoglobin 13.4, platelet count 377, sodium 139 potassium 4.9, BUN 11, creatinine 0.44 AST 24, AST 17, UA negative for infection Influenza A not detected Influenza B not detected RSV not detected COVID-19 detected EKG done in the ER showed heart rate of 121, no ST segment elevation or depression seen, no T-wave inversions seen. Chest x-ray done in the ER showed left lower lobe airspace opacity For pneumonia Patient admitted to internal medicine service 02/22. Patient seen and examined. States she feels much better compared to yes terday. Breathing has improved. Denies any chest pain. Currently on 2 L of oxygen. 02/23. Patient seen and examined. No Acute issues overnight. Continues to feel better. Currently on 2 L of oxygen which is her baseline. 02/24. Patient seen and examined. Lab work done showed WBC 4, hemoglobin 10.8, platelet count 304, sodium 134, potassium 4.6, BUN 22, creatinine 0.64. States her chest feels congested. Able to take deep breaths but gets short of breath and exertion. 02/25. Patient seen and examined. Complaining of productive cough. Still has Shortness of breath. Vital signs stable REVIEW OF SYSTEMS: CONSTITUTIONAL: No fever, no malaise,. CARDIOVASCULAR: No chest pain, no palpitations, no syncope. PULMONARY: As mentioned above GASTROINTESTINAL: No diarrhea, no nausea, no vomiting, no abdominal pain. NEUROLOGICAL: No headaches, no weakness, PHYSICAL EXAMINATION: GENERAL: The patient is alert and oriented x3, not in any acute distress. Well developed, well nourished. HEENT: Pupils are round and equally reacting to light. EOMI. No scleral icterus. No conjunctival pallor. Normocephalic, atraumatic. No pharyngeal erythema. No thyromegaly. CARDIOVASCULAR: S1 and S2 present. No murmurs, rubs, or gallops. PULMONARY: Chest is clear to auscultation, no wheezing or crackles. ABDOMEN: Soft, nontender, nondistended, normoactive bowel sounds. No palpable organomegaly. MUSCULOSKELETAL: No joint swelling or deformity. EXTREMITIES: No cyanosis, clubbing, or pedal edema. NEUROLOGICAL: Gross neurological examination did not reveal any focal deficits. SKIN: No rashes. Assessment and plan Bacterial pneumonia Sputum culture positive for Pseudomonas Acute on chronic hypoxic respiratory failure Acute COPD exacerbation Non-ST elevation ID COVID-19 infection pulmonary nodule left upper lobe Coronary artery disease with previous non-ST segment elevation myocardial infarction. CHF with impaired LV function, echo cardiac exam showing an ejection fraction of 35-40% Chronic anxiety/depression Hypertension Hyperlipidemia Acid reflux Pernicious anemia, history of Osteoarthritis History of SVT Monitor vital signs Monitor CBC Monitor CMP Continue telemetry monitoring Continue oxygen supplementation Continue IV Solu-Medrol Sputum culture positive for Pseudomonas, started on levaquin Continue breathing treatments Echo showed mildly increased left ventricle wall thickness, LVEF of 55-60%. No pericardial effusion Cardiology following, recommend ischemic workup once COVID-19 has resolved Pulmonary following In regards to hypertension continue Imdur, Lopressor, Aldactone Regards to hyperlipidemia continue Lipitor Labs and medication were reviewed.. Continue same treatment. Continue with symptomatic treatment. Resume home medication. Monitor labs and vitals. DVT and GI prophylaxis. Further recommendations as per clinical course of the patient Dictation was produced using [employer] dictation software. please excuse any grammatical, word or spelling errors. Objective - Vital Signs Vital signs: Vital Signs Temp 97.9 F 02/25/23 07:27 Pulse 71 02/25/23 07:27 Resp 20 02/25/23 07:27 BP 155/98 02/25/23 07:27 Pulse Ox 98 02/25/23 07:27 FiO2 Intake & Output 02/24/23 02/25/23 02/25/23 18:59 06:59 18:59 Intake Total 712 Output Total 1150 Balance 712 -1150 Weight 62 kg Intake: IV 10 Invasive Line 1 10 Oral 702 Output: Urine 1150 Other: Voiding Method External Catheter External Catheter External Catheter # Voids 1 - Labs CBC & Chem 7: 02/24/23 07:26 02/24/23 07:26 Labs: Abnormal Lab Results - Last 24 Hours (Table) 02/24/23 02/25/23 Range/Units 16:47 05:26 POC Glucose (mg/dL) 144 H 121 H (70-110) mg/dL Microbiology - Last 24 Hours (Table) 02/21/23 13:00 Blood Culture - Preliminary Blood 02/21/23 13:15 Blood Culture - Preliminary Blood 02/23/23 09:58 Gram Stain - Preliminary Sputum Sputum Culture - Preliminary Pseudomonas spec
[2023-02-25 17:00] LABS: Glucose,Whole Blood 88 mg/dL (70-110)
[2023-02-25 20:53] LABS: Glucose,Whole Blood 104 mg/dL (70-110)
[2023-02-25] MEDS: MONTELUKAST 10 MG TAB PO SCH (21:30)
[2023-02-25] MEDS: ATORVASTATIN 40 MG TAB PO SCH (21:30)
[2023-02-26 06:04] LABS: Glucose,Whole Blood 128 mg/dL (70-110)
[2023-02-26] MEDS: ALBUTEROL HFA INHALER INHALATION SCH ×4 (07:34→21:43)
[2023-02-26] MEDS: SYMBICORT 160-4.5 MCG INHALER INHALATION SCH ×2 (07:35→21:43)
[2023-02-26] MEDS: SERTRALINE 100 MG TAB PO SCH (08:24)
[2023-02-26] MEDS: HEPARIN SODIUM,PORCINE 5,000 UNIT/ML 1 ML VIAL SQ SCH ×3 (08:24→23:51)
[2023-02-26] MEDS: PANTOPRAZOLE 40 MG TABLET PO SCH (08:25)
[2023-02-26] MEDS: SPIRONOLACTONE 25 MG TAB PO SCH (08:25)
[2023-02-26] MEDS: ASPIRIN 81 MG PO SCH (08:25)
[2023-02-26] MEDS: ONDANSETRON 4 MG/2 ML VIAL IVP PRN ×2 (08:25→14:52)
[2023-02-26] MEDS: methylPREDNISolone SOD SUCCI 40 MG/ML 1 ML VIAL IV SCH ×3 (08:25→23:51)
[2023-02-26] MEDS: LEVOFLOXACIN 750 MG TAB PO SCH (08:25)
[2023-02-26] MEDS: METOPROLOL SUCCINATE (ER) 50 MG TAB.ER.24H PO SCH (08:25)
[2023-02-26] MEDS: ALPRAZolam 0.5 MG TAB PO PRN ×3 (08:25→20:50)
[2023-02-26] MEDS: ACETAMINOPHEN TAB 325 MG TAB PO PRN ×3 (08:25→20:50)
[2023-02-26] MEDS: ISOSORBIDE MONONITRATE ER 30 MG TAB.ER.24H PO SCH (08:25)
[2023-02-26 11:16] LABS: Glucose,Whole Blood 96 mg/dL (70-110)
--- NOTE | 2023-02-26 12:09 | P.PN ---
Subjective Progress Note Date: 02/26/23 78 year old female with history of recurrent chest pain, asthma, COPD, GERD, hypertension, hyperlipidemia, anxiety/depression who presented to the ER because of worsening shortness of breath. Patient stated that she woke up at 4:00 this morning with worsening shortness of breath. There was no complain of any chest pain. Patient baseline uses 2 L of oxygen but at home she was feeling more short of breath. Patient was complaining of dry cough. Patient tried to use her breathing treatment but that did not work. Patient continued to complain of worsening breathing. There was no complain of orthopnea or PND. Denied any dizziness or lightheadedness. There was no complain of swelling of feet. B ecause his worsening shortness of breath, patient called EMS and they brought her to the ER Initial lab work done in the ER showed WBC 10.8, hemoglobin 13.4, platelet count 377, sodium 139 potassium 4.9, BUN 11, creatinine 0.44 AST 24, AST 17, UA negative for infection Influenza A not detected Influenza B not detected RSV not detected COVID-19 detected EKG done in the ER showed heart rate of 121, no ST segment elevation or depression seen, no T-wave inversions seen. Chest x-ray done in the ER showed left lower lobe airspace opacity For pneumonia Patient admitted to internal medicine service 02/22. Patient seen and examined. States she feels much better compared to yes terday. Breathing has improved. Denies any chest pain. Currently on 2 L of oxygen. 02/23. Patient seen and examined. No Acute issues overnight. Continues to feel better. Currently on 2 L of oxygen which is her baseline. 02/24. Patient seen and examined. Lab work done showed WBC 4, hemoglobin 10.8, platelet count 304, sodium 134, potassium 4.6, BUN 22, creatinine 0.64. States her chest feels congested. Able to take deep breaths but gets short of breath and exertion. 02/25. Patient seen and examined. Complaining of productive cough. Still has Shortness of breath. Vital signs stable 02/26/23. Patient seen and examined. States she feels not good today. Complaining of shortness of breath and productive cough. Also complaining of nausea this morning REVIEW OF SYSTEMS: CONSTITUTIONAL: No fever, no malaise,. CARDIOVASCULAR: No chest pain, no palpitations, no syncope. PULMONARY: As mentioned above GASTROINTESTINAL: No diarrhea, no abdominal pain. NEUROLOGICAL: No headaches, no weakness, PHYSICAL EXAMINATION: GENERAL: The patient is alert and oriented x3, not in any acute distress. Well developed, well nourished. HEENT: Pupils are round and equally reacting to light. EOMI. No scleral icterus. No conjunctival pallor. Normocephalic, atraumatic. No pharyngeal erythema. No thyromegaly. CARDIOVASCULAR: S1 and S2 present. No murmurs, rubs, or gallops. PULMONARY: Chest is clear to auscultation, no wheezing or crackles. ABDOMEN: Soft, nontender, nondistended, normoactive bowel sounds. No palpable organomegaly. MUSCULOSKELETAL: No joint swelling or deformity. EXTREMITIES: No cyanosis, clubbing, or pedal edema. NEUROLOGICAL: Gross neurological examination did not reveal any focal deficits. SKIN: No rashes. Assessment and plan Bacterial pneumonia Sputum culture positive for Pseudomonas Acute on chronic hypoxic respiratory failure Acute COPD exacerbation Non-ST elevation [place] COVID-19 infection pulmonary nodule left upper lobe Coronary artery disease with previous non-ST segment elevation myocardial infarction. CHF with impaired LV function, echo cardiac exam showing an ejection fraction of 35-40% Chronic anxiety/depression Hypertension Hyperlipidemia Acid reflux Pernicious anemia, history of Osteoarthritis History of SVT Monitor vital signs Monitor CBC Monitor CMP Continue telemetry monitoring Continue oxygen supplementation Continue IV Solu-Medrol Sputum culture positive for Pseudomonas, continue levaquin Continue breathing treatments Echo showed mildly increased left ventricle wall thickness, LVEF of 55-60%. No pericardial effusion Cardiology following, recommend ischemic workup once COVID-19 has resolved Pulmonary following In regards to hypertension continue Imdur, Lopressor, Aldactone Regards to hyperlipidemia continue Lipitor Labs and medication were reviewed.. Continue same treatment. Continue with symptomatic treatment. Resume home medication. Monitor labs and vitals. DVT and GI prophylaxis. Further recommendations as per clinical course of the patient Dictation was produced using [employer] dictation software. please excuse any grammatical, word or spelling errors. Objective - Vital Signs Vital signs: Vital Signs Temp 98.4 F 02/26/23 07:02 Pulse 56 L 02/26/23 07:02 Resp 19 02/26/23 07:02 BP 146/95 02/26/23 07:02 Pulse Ox 100 02/26/23 07:02 FiO2 Intake & Output 02/25/23 02/26/23 02/26/23 18:59 06:59 18:59 Output Total 1500 Balance -1500 Weight 61 kg Output: Urine 1500 Other: Voiding Method External Catheter External Catheter # Voids 1 - Labs CBC & Chem 7: 02/24/23 07:26 02/24/23 07:26 Labs: Abnormal Lab Results - Last 24 Hours (Table) 02/26/23 Range/Units 06:03 POC Glucose (mg/dL) 128 H (70-110) mg/dL Microbiology - Last 24 Hours (Table) 02/23/23 09:58 Gram Stain - Final Sputum Sputum Culture - Final Pseudomonas aeruginosa
--- NOTE | 2023-02-26 14:28 | P.PN ---
Subjective Progress Note Date: 02/26/23 This is a 76-year-old female patient who came into the emergency department with worsening shortness of breath. The patient denies having any chest pain. The patient is known to have COPD and the patient uses home O2 at 2 L/m nasal cannula. 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 The patient also reported some cough. No significant sputum production. No pleurisy. No hemoptysis. No nausea or emesis. His cough was essentially dry. Based on that, he came into the emergency Department. The patient checked positive for Covid 19 infection. Influenza and RSV were both negative. The chest x-ray showed some chronic infiltration of the left lower lobe seen on previous chest x-rays. Currently is on 4 L of oxygen by nasal cannula. A CTA of the chest was also done that confirmed presence of moderate to severe emphysematous changes bilaterally. There was a 80 mm pulmonary nodule in the left upper lobe, irregular borders is highly suspicious for primary bronchogenic carcinoma. No significant infiltrates noted. Small left-sided pleural effusion. Moderate calcification of the aortic branches including coronary artery disease and ectasia of the ascending aorta measuring 3.5 cm in size. No evidence of any pulmonary embolism. Hospitalized for Covid 19 infection and worsening shortness of breath and acute on top of chronic hypoxic respiratory failure. The WBC count of 10.8, he was 15.4, platelet count is at 337 and UA is negative. Nitrites are within normal limits. Renal function is also within normal limits. The patient was started on enteric antibiotic coverage with IV Rocephin. The patient is also on IV Solu-Medrol 40 mg every 8 hours. The patient was started on Symbicort and IV fluids with normal saline at the rate of 100 mL an hour. The patient utilizes Symbicort on outpatient basis in addition to DuoNeb. Patient has hypertension hyperlipidemia and history of pernicious anemia. Patient also has history of CHF with chronic systolic heart failure with an ejection fraction of 35-40%. This is based on echocardiogram that was done back in 12/27/2021. She is hoffman ited on metoprolol. She is also on Aldactone on outpatient basis. Note that the cardiac enzymes were also checked and the patient ruled in fot acute NSTMI and the patient is currently on IV Heparin and trop I peaked at 1.7. and the ECG showed normal sinus rhythm. No ST segment elevation.The patient is known to have coronary artery disease. The patient hospitalization approximately year ago and underwent cardiac catheterization by Dr. Duran and this was done on 12/20/2021 revealing normal left main, normal circumflex, normal AV and there was some mild nonobstructive nonocclusive coronary artery disease. On today's evaluation of 02/22/2023, the patient is doing slightly improved compared to yesterday. She is in need for rescue inhaler and I started on Ventolin HFA. She is also on Symbicort. She remains on IV Solu-Medrol. She has Covid 19 infection and his incentive first infection. She has received only 1 single vaccine with [employer] brand and this was given to her at the start of the pandemic. She has no other new complaints. The patient is to be seen by cardiology regarding her acute non-ST segment elevation myocardial infarction patient's Jevity chest pain for now. On today's evaluation of 02/23/2023, the patient is feeling the same as yesterday. Still bronchospastic and wheezy on today's evaluation. She is having cough and congestion. She is currently on 2 L of oxygen by nasal cannula. She remains on IV Solu-Medrol. No new complaints otherwise for now. She is afebrile. The white cycles of 5.1, hemoglobin is 10.8, sodium is at 131, BUN is 27 with a creatinine of 0.57. From the cardiac standpoint, the patient is post acute non-ST segment elevation myocardial infarction. She is off IV heparin is on subcu heparin. Cardiac medications are to be continued. According to the physical function without any obvious segmental wall motion abnormalities. On 02/24/2023, I'm seeing the patient for a follow-up. She is coughing yellowish sputum in the sputum be sent for cultures. She is on no antibiotics for now. She remains on steroids. She is being treated for an acute COPD exacerbation. She also has positive Covid 19. White cell count is at 4 with a hemoglobin of 10.8, BUN is at 22 with a creatinine of 0.6 and the patient has been on 2 L of oxygen by nasal cannula with a pulse ox of 98%. She is afebrile. No other complaints otherwise for now. On 02/25/2023, I'm seeing the patient for a follow-up. The patient is still being treated for an acute COPD exacerbation. She remains on the on updrafts, Symbicort and IV Solu-Medrol. Note that the sputum turned out to be positive for pseudomonas aeruginosa, quinolone sensitive. Noted the patient is currently on Levaquin 750 mg by mouth daily. She is still struggling with her breathing. Limited improvement since yesterday. Remains on oxygen 2 L/m there are cannula. She is also positive for Covid 19. On 02/26/2023, the patient is still struggling with her breathing and COPD exacerbation. Note that she was originally infected with Covid 19. Subsequently her sputum sample also showed pseudomonas aeruginosa. She was producing copious amounts of rest or secretions and I had to cover this patient with antibiotics. The patient is currently on Levaquin 750 mg by mouth daily. Rest or secretions have subsided slightly compared to yesterday. She also Mucinex. He remains on IV Solu-Medrol 40 mg every 8 hours. She maintains on Symbicort and Ventolin [id number]. No fever. No chills. Overall feeling weak. Nausea. No emesis. Objective - Vital Signs Vital signs: Vital Signs Temp 98.4 F 02/26/23 07:02 Pulse 56 L 02/26/23 07:02 Resp 19 02/26/23 07:02 BP 146/95 02/26/23 07:02 Pulse Ox 100 02/26/23 07:02 FiO2 Intake & Output 02/25/23 02/26/23 02/26/23 18:59 06:59 18:59 Output Total 1500 Balance -1500 Weight 61 kg Output: Urine 1500 Other: Voiding Method External Catheter External Catheter # Voids 1 - Exam Gen. appearance, the patient is calm and comfortable no acute distress, currentl y on 2 L of O2 nasal cannula Head exam was generally normal. There was no scleral icterus or corneal arcus. Mucous membranes were moist. Neck was supple and without jugular venous distension, thyromegaly, or carotid bruits. Carotids were easily palpable bilaterally. There was no adenopathy. Lungs sounds are diminished bilaterally along with scattered extremity wheezes Cardiac exam revealed the PMI to be normally situated and sized. The rhythm was regular and no extrasystoles were noted during several minutes of auscultation. The first and second heart sounds were normal and physiologic splitting of the second heart sound was noted. There were no murmurs, rubs, clicks, or gallops. Abdominal exam revealed normal bowel sounds. The abdomen was soft, non-tender, and without masses, organomegaly, or appreciable enlargement of the abdominal ao rta. Examination of the extremities revealed easily palpable radial, femoral and pedal pulses. There was no cyanosis, clubbing or edema. Examination of the skin revealed no evidence of significant rashes, suspicious appearing nevi or other concerning lesions. - Labs CBC & Chem 7: 02/24/23 07:26 02/24/23 07:26 Labs: Abnormal Lab Results - Last 24 Hours (Table) 02/26/23 Range/Units 06:03 POC Glucose (mg/dL) 128 H (70-110) mg/dL Microbiology - Last 24 Hours (Table) 02/23/23 09:58 Gram Stain - Final Sputum Sputum Culture - Final Pseudomonas aeruginosa Assessment and Plan Plan: Acute Covid 19 infection, no clear indication for pneumonia. No significant pneumonia based on CT angiogram findings. No evidence of any pulmonary embolism.. The patient has received vaccination in the past 1 with [employer] and this is a on infection with Covid 19. No previous infections reported. The patient remains on IV Solu-Medrol. Pseudomonas was also cultured in the sputum. Colonization versus true infection. The patient is currently on Levaquin. There may be a true infection as the patient is producing copious amount of rest or secretions, not typical of Covid 19. Acute exacerbation of COPD, slightly improved compared to yesterday, however she is not fully recovered that she remains symptomatic. Acute on top of chronic hypoxic respiratory failure currently on oxygen at 4 L/m nasal cannula, patient is on O2 at 2 L at baseline acute non-ST segment elevation myocardial infarction the patient's troponin peaked at 1.7 pulmonary nodule left upper lobe, measuring 18 mm in size, suspicious for primary bronchogenic carcinoma Coronary artery disease with previous non-ST segment elevation myocardial i nfarction. His cardiac catheterization showing mild nonobstructive coronary artery disease CHF with impaired LV function, echo cardiac exam showing an ejection fraction of 35-40%, repeat echocardiogram shows an ejection fraction of 55-60% without any segmental wall motion abnormalities. Chronic anxiety/depression Hypertension Hyperlipidemia Acid reflux Pernicious anemia, history of Osteoarthritis Plan Clinically slightly improved compared to yesterday Continue Levaquin as the patient was found to Pseudomonas growth in her lungs and the rest or secretions are less compared to yesterday Oxygenation is stable, currently on 2 L No clear indication for pneumonia, Procal was at 0.1 Continue IV Solu-Medrol this will be continued at the same dose Resume Symbicort Albuterol HFA 4 times a day IV fluids subcu heparin for prophylaxis Echocardiogram shows a preserved LV function Cardiology consultation is appreciated and the patient will likely need a cardiac catheterization at the later stage Pulmonary nodule will be evaluated on an outpatient basis. The patient will be set need a PET/CT and subsequent bronchoscopy and biopsy specially of the PET scan showed a metabolically avid lesion in the left upper lobe. Need for another catheterization is to be evaluated by cardiology at the later stage Resume home medications We'll continue to follow
[2023-02-26 16:21] LABS: Glucose,Whole Blood 103 mg/dL (70-110)
[2023-02-26 19:44] LABS: Glucose,Whole Blood 133 mg/dL (70-110)
[2023-02-26] MEDS: MONTELUKAST 10 MG TAB PO SCH (20:05)
[2023-02-26] MEDS: ATORVASTATIN 40 MG TAB PO SCH (20:05)
[2023-02-26] MEDS: guaiFENesin 600 MG TABLET.ER PO PRN (20:50)
[2023-02-27 06:10] LABS: Glucose,Whole Blood 121 mg/dL (70-110)
[2023-02-27] MEDS: ACETAMINOPHEN TAB 325 MG TAB PO PRN ×3 (08:17→21:12)
[2023-02-27] MEDS: ALPRAZolam 0.5 MG TAB PO PRN ×3 (08:17→21:12)
[2023-02-27] MEDS: ONDANSETRON 4 MG/2 ML VIAL IVP PRN ×2 (08:18→15:03)
[2023-02-27] MEDS: methylPREDNISolone SOD SUCCI 40 MG/ML 1 ML VIAL IV SCH ×3 (08:18→23:44)
[2023-02-27] MEDS: ASPIRIN 81 MG PO SCH (08:20)
[2023-02-27] MEDS: SERTRALINE 100 MG TAB PO SCH (08:20)
[2023-02-27] MEDS: SPIRONOLACTONE 25 MG TAB PO SCH (08:20)
[2023-02-27] MEDS: LEVOFLOXACIN 750 MG TAB PO SCH (08:20)
[2023-02-27] MEDS: ISOSORBIDE MONONITRATE ER 30 MG TAB.ER.24H PO SCH (08:20)
[2023-02-27] MEDS: PANTOPRAZOLE 40 MG TABLET PO SCH (08:20)
[2023-02-27] MEDS: METOPROLOL SUCCINATE (ER) 50 MG TAB.ER.24H PO SCH (08:20)
[2023-02-27] MEDS: HEPARIN SODIUM,PORCINE 5,000 UNIT/ML 1 ML VIAL SQ SCH ×3 (08:21→23:44)
[2023-02-27] MEDS: SYMBICORT 160-4.5 MCG INHALER INHALATION SCH ×2 (08:54→22:05)
[2023-02-27] MEDS: ALBUTEROL HFA INHALER INHALATION SCH ×4 (08:54→22:05)
[2023-02-27 11:06] LABS: Glucose,Whole Blood 98 mg/dL (70-110)
--- NOTE | 2023-02-27 12:34 | P.PN ---
Subjective Progress Note Date: 02/27/23 78 year old female with history of recurrent chest pain, asthma, COPD, GERD, hypertension, hyperlipidemia, anxiety/depression who presented to the ER because of worsening shortness of breath. Patient stated that she woke up at 4:00 this morning with worsening shortness of breath. There was no complain of any chest pain. Patient baseline uses 2 L of oxygen but at home she was feeling more short of breath. Patient was complaining of dry cough. Patient tried to use her breathing treatment but that did not work. Patient continued to complain of worsening breathing. There was no complain of orthopnea or PND. Denied any dizziness or lightheadedness. There was no complain of swelling of feet. B ecause his worsening shortness of breath, patient called EMS and they brought her to the ER Initial lab work done in the ER showed WBC 10.8, hemoglobin 13.4, platelet count 377, sodium 139 potassium 4.9, BUN 11, creatinine 0.44 AST 24, AST 17, UA negative for infection Influenza A not detected Influenza B not detected RSV not detected COVID-19 detected EKG done in the ER showed heart rate of 121, no ST segment elevation or depression seen, no T-wave inversions seen. Chest x-ray done in the ER showed left lower lobe airspace opacity For pneumonia Patient admitted to internal medicine service 02/22. Patient seen and examined. States she feels much better compared to yes terday. Breathing has improved. Denies any chest pain. Currently on 2 L of oxygen. 02/23. Patient seen and examined. No Acute issues overnight. Continues to feel better. Currently on 2 L of oxygen which is her baseline. 02/24. Patient seen and examined. Lab work done showed WBC 4, hemoglobin 10.8, platelet count 304, sodium 134, potassium 4.6, BUN 22, creatinine 0.64. States her chest feels congested. Able to take deep breaths but gets short of breath and exertion. 02/25. Patient seen and examined. Complaining of productive cough. Still has Shortness of breath. Vital signs stable 02/26/23. Patient seen and examined. States she feels not good today. Complaining of shortness of breath and productive cough. Also complaining of nausea this morning 02/27. Patient seen and examined. Still complaining of congestion. States she does not feel at all better today. Complaining of shortness of breath on exertion. Complaining of wheezing REVIEW OF SYSTEMS: CONSTITUTIONAL: No fever, no malaise,. CARDIOVASCULAR: No chest pain, no palpitations, no syncope. PULMONARY: As mentioned above GASTROINTESTINAL: No diarrhea, no abdominal pain. NEUROLOGICAL: No headaches, no weakness, PHYSICAL EXAMINATION: GENERAL: The patient is alert and oriented x3, not in any acute distress. Well developed, well nourished. HEENT: Pupils are round and equally reacting to light. EOMI. No scleral icterus. No conjunctival pallor. Normocephalic, atraumatic. No pharyngeal erythema. No thyromegaly. CARDIOVASCULAR: S1 and S2 present. No murmurs, rubs, or gallops. PULMONARY: Coarse breath sounds bilaterally, wheeze audible ABDOMEN: Soft, nontender, nondistended, normoactive bowel sounds. No palpable organomegaly. MUSCULOSKELETAL: No joint swelling or deformity. EXTREMITIES: No cyanosis, clubbing, or pedal edema. NEUROLOGICAL: Gross neurological examination did not reveal any focal deficits. SKIN: No rashes. Assessment and plan Bacterial pneumonia Sputum culture positive for Pseudomonas Acute on chronic hypoxic respiratory failure Acute COPD exacerbation Non-ST elevation [place] COVID-19 infection pulmonary nodule left upper lobe Coronary artery disease with previous non-ST segment elevation myocardial infarction. CHF with impaired LV function, echo cardiac exam showing an ejection fraction of 35-40% Chronic anxiety/depression Hypertension Hyperlipidemia Acid reflux Pernicious anemia, history of Osteoarthritis History of SVT Monitor vital signs Monitor CBC Monitor CMP Continue telemetry monitoring Continue oxygen supplementation Continue IV Solu-Medrol Sputum culture positive for Pseudomonas, continue levaquin Continue breathing treatments Echo showed mildly increased left ventricle wall thickness, LVEF of 55-60%. No pericardial effusion Cardiology following, recommend ischemic workup once COVID-19 has resolved Pulmonary following In regards to hypertension continue Imdur, Lopressor, Aldactone Regards to hyperlipidemia continue Lipitor Labs and medication were reviewed.. Continue same treatment. Continue with sym ptomatic treatment. Resume home medication. Monitor labs and vitals. DVT and GI prophylaxis. Further recommendations as per clinical course of the patient Dictation was produced using [employer] dictation software. please excuse any grammatical, word or spelling errors. Objective - Vital Signs Vital signs: Vital Signs Temp 98.0 F 02/27/23 07:21 Pulse 61 02/27/23 08:17 Resp 19 02/27/23 08:17 BP 139/82 02/27/23 07:21 Pulse Ox 98 02/27/23 08:54 FiO2 Intake & Output 02/26/23 02/27/23 02/27/23 18:59 06:59 18:59 Output Total 600 Balance -600 Weight 63.6 kg Output: Urine 600 Other: Voiding Method External Catheter External Catheter External Catheter # Voids 0 - Labs CBC & Chem 7: 02/24/23 07:26 02/24/23 07:26 Labs: Abnormal Lab Results - Last 24 Hours (Table) 02/26/23 02/27/23 Range/Units 19:43 06:09 POC Glucose (mg/dL) 133 H 121 H (70-110) mg/dL Microbiology - Last 24 Hours (Table) 02/21/23 13:00 Blood Culture - Final Blood 02/21/23 13:15 Blood Culture - Final Blood
--- NOTE | 2023-02-27 13:31 | P.PN ---
Subjective Progress Note Date: 02/27/23 This is a 76-year-old female patient who came into the emergency department with worsening shortness of breath. The patient denies having any chest pain. The patient is known to have COPD and the patient uses home O2 at 2 L/m nasal cannula. His primary clinic supervisor Dr. Gonzalez. The patient also reported some cough. No significant sputum production. No pleurisy. No hemoptysis. No nausea or emesis. His cough was essentially dry. Based on that, he came into the emergency Department. The patient checked positive for Covid 19 infection. Influenza and RSV were both negative. The chest x-ray showed some chronic infiltration of the left lower lobe seen on previous chest x-rays. Currently is on 4 L of oxygen by nasal cannula. A CTA of the chest was also done that confirmed presence of moderate to severe emphysematous changes bilaterally. There was a 80 mm pulmonary nodule in the left upper lobe, irregular borders is highly suspicious for primary bronchogenic carcinoma. No significant infiltrates noted. Small left-sided pleural effusion. Moderate calcification of the aortic branches including coronary artery disease and ectasia of the ascending aorta measuring 3.5 cm in size. No evidence of any pulmonary embolism. Hospitalized for Covid 19 infection and worsening shortness of breath and acute on top of chronic hypoxic respiratory failure. The WBC count of 10.8, he was 15.4, platelet count is at 337 and UA is negative. Nitrites are within normal limits. Renal function is also within normal limits. The patient was started on enteric antibiotic coverage with IV Rocephin. The patient is also on IV Solu-Medrol 40 mg every 8 hours. The patient was started on Symbicort and IV fluids with normal saline at the rate of 100 mL an hour. The patient utilizes Symbicort on outpatient basis in addition to DuoNeb. Patient has hypertension hyperlipidemia and history of pernicious anemia. Patient also has history of CHF with chronic systolic heart failure with an ejection fraction of 35-40%. This is based on echocardiogram that was done back in 12/27/2021. She is limi filiberto on metoprolol. She is also on Aldactone on outpatient basis. Note that the cardiac enzymes were also checked and the patient ruled in fot acute NSTMI and the patient is currently on IV Heparin and trop I peaked at 1.7. and the ECG showed normal sinus rhythm. No ST segment elevation.The patient is known to have coronary artery disease. The patient hospitalization approximately year ago and underwent cardiac catheterization by Dr. Duran and this was done on 12/20/2021 revealing normal left main, normal circumflex, normal AV and there was some mild nonobstructive nonocclusive coronary artery disease. On today's evaluation of 02/22/2023, the patient is doing slightly improved compared to yesterday. She is in need for rescue inhaler and I started on Ventolin HFA. She is also on Symbicort. She remains on IV Solu-Medrol. She has Covid 19 infection and his incentive first infection. She has received only 1 single vaccine with J[employer]J brand and this was given to her at the start of the pandemic. She has no other new complaints. The patient is to be seen by cardiology regarding her acute non-ST segment elevation myocardial infarction patient's Jevity chest pain for now. On today's evaluation of 02/23/2023, the patient is feeling the same as yesterday. Still bronchospastic and wheezy on today's evaluation. She is having cough and congestion. She is currently on 2 L of oxygen by nasal cannula. She remains on IV Solu-Medrol. No new complaints otherwise for now. She is afebrile. The white cycles of 5.1, hemoglobin is 10.8, sodium is at 131, BUN is 27 with a creatinine of 0.57. From the cardiac standpoint, the patient is post acute non-ST segment elevation myocardial infarction. She is off IV heparin is on subcu heparin. Cardiac medications are to be continued. According to the physical function without any obvious segmental wall motion abnormalities. On 02/24/2023, I'm seeing the patient for a follow-up. She is coughing yellowish sputum in the sputum be sent for cultures. She is on no antibiotics for now. She remains on steroids. She is being treated for an acute COPD exacerbation. She also has positive Covid 19. White cell count is at 4 with a hemoglobin of 10.8, BUN is at 22 with a creatinine of 0.6 and the patient has been on 2 L of oxygen by nasal cannula with a pulse ox of 98%. She is afebrile. No other complaints otherwise for now. On 02/25/2023, I'm seeing the patient for a follow-up. The patient is still being treated for an acute COPD exacerbation. She remains on the on updrafts, Symbicort and IV Solu-Medrol. Note that the sputum turned out to be positive for pseudomonas aeruginosa, quinolone sensitive. Noted the patient is currently on Levaquin 750 mg by mouth daily. She is still struggling with her breathing. Limited improvement since yesterday. Remains on oxygen 2 L/m there are cannula. She is also positive for Covid 19. On 02/26/2023, the patient is still struggling with her breathing and COPD exacerbation. Note that she was originally infected with Covid 19. Subsequently her sputum sample also showed pseudomonas aeruginosa. She was producing copious amounts of rest or secretions and I had to cover this patient with antibiotics. The patient is currently on Levaquin 750 mg by mouth daily. Rest or secretions have subsided slightly compared to yesterday. She also Mucinex. He remains on IV Solu-Medrol 40 mg every 8 hours. She maintains on Symbicort and Ventolin [id number]. No fever. No chills. Overall feeling weak. Nausea. No emesis. The patient is seen today 02/27/2023 in follow-up on the regular medical floor. She is currently sitting up in bed. Awake and alert in no acute distress. She does continue with a loose nonproductive cough. She is having some chest discomfort, back discomfort and a headache. Her sputum was positive for pseudomonas aeruginosa. She is maintaining O2 saturations in the upper 90s on 2 L/m per nasal cannula. She's been afebrile. Hemodynamically stable. Glucose 121. She is continued on antibiotics in the form of Levaquin. Remains on M ucinex, bronchodilators, steroids, Singulair. Heparin for DVT prophylaxis. Objective - Vital Signs Vital signs: Vital Signs Temp 98.0 F 02/27/23 07:21 Pulse 61 02/27/23 08:17 Resp 19 02/27/23 08:17 BP 139/82 02/27/23 07:21 Pulse Ox 98 02/27/23 08:54 FiO2 Intake & Output 02/26/23 02/27/23 02/27/23 18:59 06:59 18:59 Output Total 600 Balance -600 Weight 63.6 kg Output: Urine 600 Other: Voiding Method External Catheter External Catheter External Catheter # Voids 0 - Exam GENERAL EXAM: Alert, pleasant 78-year-old female, on 2 L nasal cannula, comfortable in no apparent distress. HEAD: Normocephalic. EYES: Normal reaction of pupils, equal size. NOSE: Clear with pink turbinates. THROAT: No erythema or exudates. NECK: No masses, no JVD. CHEST: No chest wall deformity. LUNGS: Equal air entry with few scattered rhonchi. CVS: S1 and S2 normal with no audible murmur, regular rhythm. ABDOMEN: No hepatosplenomegaly, normal bowel sounds, no guarding or rigidity. SPINE: No scoliosis or deformity SKIN: No rashes CENTRAL NERVOUS SYSTEM: No focal deficits, tone is normal in all 4 extremities. EXTREMITIES: There is no peripheral edema. No clubbing, no cyanosis. Peripheral pulses are intact. - Labs CBC & Chem 7: 02/24/23 07:26 02/24/23 07:26 Labs: Abnormal Lab Results - Last 24 Hours (Table) 02/26/23 02/27/23 Range/Units 19:43 06:09 POC Glucose (mg/dL) 133 H 121 H (70-110) mg/dL Microbiology - Last 24 Hours (Table) 02/21/23 13:00 Blood Culture - Final Blood 02/21/23 13:15 Blood Culture - Final Blood Assessment and Plan Assessment: Acute Covid 19 infection, no clear indication for pneumonia. No significant pneumonia based on CT angiogram findings. No evidence of any pulmonary embolism.. The patient has received vaccination in the past 1 with [employer] and this is a first infection with Covid 19. No previous infections reported. The patient remains on IV Solu-Medrol. Pseudomonas was also cultured in the sputum. The patient is currently on Levaquin. There may be a true infection as the patient is producing copious amount of rest or secretions, not typical of Covid 19. Acute exacerbation of COPD, slightly improved compared to yesterday, however she is not fully recovered that she remains symptomatic. Acute on top of chronic hypoxic respiratory failure currently on oxygen at 4 L/m nasal cannula, patient is on O2 at 2 L at baseline Acute non-ST segment elevation myocardial infarction the patient's troponin pea ked at 1.7 Pulmonary nodule left upper lobe, measuring 18 mm in size, suspicious for primary bronchogenic carcinoma Coronary artery disease with previous non-ST segment elevation myocardial infarction. His cardiac catheterization showing mild nonobstructive coronary artery disease CHF with impaired LV function, echo cardiac exam showing an ejection fraction of 35-40%, repeat echocardiogram shows an ejection fraction of 55-60% without any segmental wall motion abnormalities. Chronic anxiety/depression Hypertension Hyperlipidemia Acid reflux Pernicious anemia, history of Osteoarthritis Plan: The patient was seen and evaluated Occasions and labs reviewed Continue the current treatment plan Remains on Levaquin Titrate the FiO2 as tolerated Follow-up chest x-ray in a.m. We will continue to follow I have personally seen and examined the patient, performed the documentation and the assessment and plan as written. Number of minutes spent on the visit: 10.
[2023-02-27 16:35] LABS: Glucose,Whole Blood 87 mg/dL (70-110)
[2023-02-27 19:58] LABS: Glucose,Whole Blood 133 mg/dL (70-110)
[2023-02-27] MEDS: MONTELUKAST 10 MG TAB PO SCH (20:31)
[2023-02-27] MEDS: ATORVASTATIN 40 MG TAB PO SCH (20:31)
[2023-02-28 06:02] LABS: Glucose,Whole Blood 112 mg/dL (70-110)
--- NOTE | 2023-02-28 07:41 | XR ---
EXAMINATION TYPE: XR chest 1V portable DATE OF EXAM: 02/28/2023 COMPARISON: 02/22/2023 INDICATION: Covid TECHNIQUE: Single frontal view of the chest is obtained. FINDINGS: The heart size is normal. The pulmonary vasculature is normal. Few scattered nonspecific infiltrates are in the periphery of the left mid and lower lung field. This is improved from comparison. Findings are nonspecific but can be compatible with atypical pneumonia. Some minimal increased lung markings may be near the right costophrenic angle. No suspicious consoli dations evident. IMPRESSION: 1. Few scattered infiltrates are nonspecific but can be compatible with atypical pneumonia. Findings are improved from comparison.
[2023-02-28] MEDS: HEPARIN SODIUM,PORCINE 5,000 UNIT/ML 1 ML VIAL SQ SCH ×2 (08:23→16:34)
[2023-02-28] MEDS: ALPRAZolam 0.5 MG TAB PO PRN ×3 (08:24→21:17)
[2023-02-28] MEDS: ASPIRIN 81 MG PO SCH (08:24)
[2023-02-28] MEDS: SERTRALINE 100 MG TAB PO SCH (08:24)
[2023-02-28] MEDS: ACETAMINOPHEN TAB 325 MG TAB PO PRN ×3 (08:24→21:16)
[2023-02-28] MEDS: PANTOPRAZOLE 40 MG TABLET PO SCH (08:24)
[2023-02-28] MEDS: METOPROLOL SUCCINATE (ER) 50 MG TAB.ER.24H PO SCH (08:24)
[2023-02-28] MEDS: ISOSORBIDE MONONITRATE ER 30 MG TAB.ER.24H PO SCH (08:24)
[2023-02-28] MEDS: SPIRONOLACTONE 25 MG TAB PO SCH (08:24)
[2023-02-28] MEDS: LEVOFLOXACIN 750 MG TAB PO SCH (08:24)
[2023-02-28] MEDS: methylPREDNISolone SOD SUCCI 40 MG/ML 1 ML VIAL IV SCH ×2 (08:46→15:11)
[2023-02-28] MEDS: ONDANSETRON 4 MG/2 ML VIAL IVP PRN ×2 (08:46→15:11)
[2023-02-28] MEDS: SYMBICORT 160-4.5 MCG INHALER INHALATION SCH ×2 (09:26→19:56)
[2023-02-28] MEDS: ALBUTEROL HFA INHALER INHALATION SCH ×4 (09:26→19:56)
[2023-02-28 11:41] LABS: Glucose,Whole Blood 93 mg/dL (70-110)
--- NOTE | 2023-02-28 12:03 | P.PN ---
Subjective Progress Note Date: 02/28/23 This is a 76-year-old female patient who came into the emergency department with worsening shortness of breath. The patient denies having any chest pain. The patient is known to have COPD and the patient uses home O2 at 2 L/m nasal cannula. His primary technical education teacher Dr. Gonzalez. The patient also reported some cough. No significant sputum production. No pleurisy. No hemoptysis. No nausea or emesis. His cough was essentially dry. Based on that, he came into the emergency Department. The patient checked positive for Covid 19 infection. Influenza and RSV were both negative. The chest x-ray showed some chronic infiltration of the left lower lobe seen on previous chest x-rays. Currently is on 4 L of oxygen by nasal cannula. A CTA of the chest was also done that confirmed presence of moderate to severe emphysematous changes bilaterally. There was a 80 mm pulmonary nodule in the left upper lobe, irregular borders is highly suspicious for primary bronchogenic carcinoma. No significant infiltrates noted. Small left-sided pleural effusion. Moderate calcification of the aortic branches including coronary artery disease and ectasia of the ascending aorta measuring 3.5 cm in size. No evidence of any pulmonary embolism. Hospitalized for Covid 19 infection and worsening shortness of breath and acute on top of chronic hypoxic respiratory failure. The WBC count of 10.8, he was 15.4, platelet count is at 337 and UA is negative. Nitrites are within normal limits. Renal function is also within normal limits. The patient was started on enteric antibiotic coverage with IV Rocephin. The patient is also on IV Solu-Medrol 40 mg every 8 hours. The patient was started on Symbicort and IV fluids with normal saline at the rate of 100 mL an hour. The patient utilizes Symbicort on outpatient basis in addition to DuoNeb. Patient has hypertension hyperlipidemia and history of pernicious anemia. Patient also has history of CHF with chronic systolic heart failure with an ejection fraction of 35-40%. This is based on echocardiogram that was done back in 12/27/2021. She is limi filiberto on metoprolol. She is also on Aldactone on outpatient basis. Note that the cardiac enzymes were also checked and the patient ruled in fot acute NSTMI and the patient is currently on IV Heparin and trop I peaked at 1.7. and the ECG showed normal sinus rhythm. No ST segment elevation.The patient is known to have coronary artery disease. The patient hospitalization approximately year ago and underwent cardiac catheterization by Dr. Duran and this was done on 12/20/2021 revealing normal left main, normal circumflex, normal AV and there was some mild nonobstructive nonocclusive coronary artery disease. On today's evaluation of 02/22/2023, the patient is doing slightly improved compared to yesterday. She is in need for rescue inhaler and I started on Ventolin HFA. She is also on Symbicort. She remains on IV Solu-Medrol. She has Covid 19 infection and his incentive first infection. She has received only 1 single vaccine with J[employer]J brand and this was given to her at the start of the pandemic. She has no other new complaints. The patient is to be seen by cardiology regarding her acute non-ST segment elevation myocardial infarction patient's Jevity chest pain for now. On today's evaluation of 02/23/2023, the patient is feeling the same as yesterday. Still bronchospastic and wheezy on today's evaluation. She is having cough and congestion. She is currently on 2 L of oxygen by nasal cannula. She remains on IV Solu-Medrol. No new complaints otherwise for now. She is afebrile. The white cycles of 5.1, hemoglobin is 10.8, sodium is at 131, BUN is 27 with a creatinine of 0.57. From the cardiac standpoint, the patient is post acute non-ST segment elevation myocardial infarction. She is off IV heparin is on subcu heparin. Cardiac medications are to be continued. According to the physical function without any obvious segmental wall motion abnormalities. On 02/24/2023, I'm seeing the patient for a follow-up. She is coughing yellowish sputum in the sputum be sent for cultures. She is on no antibiotics for now. She remains on steroids. She is being treated for an acute COPD exacerbation. She also has positive Covid 19. White cell count is at 4 with a hemoglobin of 10.8, BUN is at 22 with a creatinine of 0.6 and the patient has been on 2 L of oxygen by nasal cannula with a pulse ox of 98%. She is afebrile. No other complaints otherwise for now. On 02/25/2023, I'm seeing the patient for a follow-up. The patient is still being treated for an acute COPD exacerbation. She remains on the on updrafts, Symbicort and IV Solu-Medrol. Note that the sputum turned out to be positive for pseudomonas aeruginosa, quinolone sensitive. Noted the patient is currently on Levaquin 750 mg by mouth daily. She is still struggling with her breathing. Limited improvement since yesterday. Remains on oxygen 2 L/m there are cannula. She is also positive for Covid 19. On 02/26/2023, the patient is still struggling with her breathing and COPD exacerbation. Note that she was originally infected with Covid 19. Subsequently her sputum sample also showed pseudomonas aeruginosa. She was producing copious amounts of rest or secretions and I had to cover this patient with antibiotics. The patient is currently on Levaquin 750 mg by mouth daily. Rest or secretions have subsided slightly compared to yesterday. She also Mucinex. He remains on IV Solu-Medrol 40 mg every 8 hours. She maintains on Symbicort and Ventolin [id number]. No fever. No chills. Overall feeling weak. Nausea. No emesis. The patient is seen today 02/27/2023 in follow-up on the regular medical floor. She is currently sitting up in bed. Awake and alert in no acute distress. She does continue with a loose nonproductive cough. She is having some chest discomfort, back discomfort and a headache. Her sputum was positive for pseudomonas aeruginosa. She is maintaining O2 saturations in the upper 90s on 2 L/m per nasal cannula. She's been afebrile. Hemodynamically stable. Glucose 121. She is continued on antibiotics in the form of Levaquin. Remains on M ucinex, bronchodilators, steroids, Singulair. Heparin for DVT prophylaxis. The patient is seen today 02/28/2019 for follow-up on the regular medical floor. She is awake and alert in no acute distress. She is maintaining O2 saturations in the 90s on 2 L/m per nasal cannula. She is better today compared to yesterday. Chest x-ray shows few scattered infiltrates nonspecific but may be compatible with atypical pneumonia. Improved aeration. Sputum culture was positive for pseudomonas aeruginosa. Blood cultures revealed no growth. Blood sugar 112. She is continued on Symbicort, Singulair, Mucinex, Ventolin, Solu- Medrol. Antibiotics in the form of Levaquin. Heparin for DVT prophylaxis. Objective - Vital Signs Vital signs: Vital Signs Temp 97.7 F 02/28/23 07:16 Pulse 75 02/28/23 08:49 Resp 19 02/28/23 08:49 BP 144/84 02/28/23 07:16 Pulse Ox 100 02/28/23 07:16 FiO2 Intake & Output 02/27/23 02/28/23 02/28/23 18:59 06:59 18:59 Output Total 650 1000 Balance -650 -1000 Weight 63 kg Output: Urine 650 1000 Other: Voiding Method External Catheter External Catheter External Catheter # Voids 250 - Exam GENERAL EXAM: Alert, 78-year-old female, seen up in bed, on 2 L nasal cannula, comfortable in no apparent distress. HEAD: Normocephalic. EYES: Normal reaction of pupils, equal size. NOSE: Clear with pink turbinates. THROAT: No erythema or exudates. NECK: No masses, no JVD. CHEST: No chest wall deformity. LUNGS: Equal air entry with few scattered rhonchi. CVS: S1 and S2 normal with no audible murmur, regular rhythm. ABDOMEN: No hepatosplenomegaly, normal bowel sounds, no guarding or rigidity. SPINE: No scoliosis or deformity SKIN: No rashes CENTRAL NERVOUS SYSTEM: No focal deficits, tone is normal in all 4 extremities. EXTREMITIES: There is no peripheral edema. No clubbing, no cyanosis. Peripheral pulses are intact. - Labs CBC & Chem 7: 02/24/23 07:26 02/24/23 07:26 Labs: Abnormal Lab Results - Last 24 Hours (Table) 02/27/23 02/28/23 Range/Units 19:55 06:01 POC Glucose (mg/dL) 133 H 112 H (70-110) mg/dL Assessment and Plan Assessment: Acute Covid 19 infection, no clear indication for pneumonia. No significant pneumonia based on CT angiogram findings. No evidence of any pulmonary embolism.. The patient has received vaccination in the past 1 with [employer] and this is a first infection with Covid 19. No previous infections reported. The patient remains on IV Solu-Medrol. Pseudomonas was also cultured in the sputum. The patient is currently on Levaquin. There may be a true infection as the patient is producing copious amount of rest or secretions, not typical of Covid 19. Acute exacerbation of COPD, improved, however she is not fully recovered that she remains symptomatic. Acute on top of chronic hypoxic respiratory failure currently on oxygen at 4 L/m nasal cannula, patient is on O2 at 2 L at baseline Acute non-ST segment elevation myocardial infarction the patient's troponin peaked at 1.7 Pulmonary nodule left upper lobe, measuring 18 mm in size, suspicious for primary bronchogenic carcinoma Coronary artery disease with previous non-ST segment elevation myocardial infarction. His cardiac catheterization showing mild nonobstructive coronary artery disease CHF with impaired LV function, echo cardiac exam showing an ejection fraction of 35-40%, repeat echocardiogram shows an ejection fraction of 55-60% without any segmental wall motion abnormalities. Chronic anxiety/depression Hypertension Hyperlipidemia Acid reflux Pernicious anemia, history of Osteoarthritis Plan: The patient was seen and evaluated Medications, chest x-ray and labs reviewed Continue the current treatment plan Remains on Levaquin Titrate the FiO2 as tolerated Probable discharge in the a.m. We will continue to follow I have personally seen and examined the patient, performed the documentation and the assessment and plan as written. Number of minutes spent on the visit: 10.
--- NOTE | 2023-02-28 13:04 | P.PN ---
Subjective Progress Note Date: 02/28/23 78 year old female with history of recurrent chest pain, asthma, COPD, GERD, hypertension, hyperlipidemia, anxiety/depression who presented to the ER because of worsening shortness of breath. Patient stated that she woke up at 4:00 this morning with worsening shortness of breath. There was no complain of any chest pain. Patient baseline uses 2 L of oxygen but at home she was feeling more short of breath. Patient was complaining of dry cough. Patient tried to use her breathing treatment but that did not work. Patient continued to complain of worsening breathing. There was no complain of orthopnea or PND. Denied any dizziness or lightheadedness. There was no complain of swelling of feet. B ecause his worsening shortness of breath, patient called EMS and they brought her to the ER Initial lab work done in the ER showed WBC 10.8, hemoglobin 13.4, platelet count 377, sodium 139 potassium 4.9, BUN 11, creatinine 0.44 AST 24, AST 17, UA negative for infection Influenza A not detected Influenza B not detected RSV not detected COVID-19 detected EKG done in the ER showed heart rate of 121, no ST segment elevation or depression seen, no T-wave inversions seen. Chest x-ray done in the ER showed left lower lobe airspace opacity For pneumonia Patient admitted to internal medicine service 02/22. Patient seen and examined. States she feels much better compared to yes terday. Breathing has improved. Denies any chest pain. Currently on 2 L of oxygen. 02/23. Patient seen and examined. No Acute issues overnight. Continues to feel better. Currently on 2 L of oxygen which is her baseline. 02/24. Patient seen and examined. Lab work done showed WBC 4, hemoglobin 10.8, platelet count 304, sodium 134, potassium 4.6, BUN 22, creatinine 0.64. States her chest feels congested. Able to take deep breaths but gets short of breath and exertion. 02/25. Patient seen and examined. Complaining of productive cough. Still has Shortness of breath. Vital signs stable 02/26/23. Patient seen and examined. States she feels not good today. Complaining of shortness of breath and productive cough. Also complaining of nausea this morning 02/27. Patient seen and examined. Still complaining of congestion. States she does not feel at all better today. Complaining of shortness of breath on exertion. Complaining of wheezing 1/3. Patient seen and examined. States breathing has improved, continues to be on 2 L of oxygen. Denies any chest pain. Vital signs stable REVIEW OF SYSTEMS: CONSTITUTIONAL: No fever, no malaise,. CARDIOVASCULAR: No chest pain, no palpitations, no syncope. PULMONARY: As mentioned above GASTROINTESTINAL: No diarrhea, no abdominal pain. NEUROLOGICAL: No headaches, no weakness, PHYSICAL EXAMINATION: GENERAL: The patient is alert and oriented x3, not in any acute distress. Well developed, well nourished. HEENT: Pupils are round and equally reacting to light. EOMI. No scleral icterus. No conjunctival pallor. Normocephalic, atraumatic. No pharyngeal erythema. No thyromegaly. CARDIOVASCULAR: S1 and S2 present. No murmurs, rubs, or gallops. PULMONARY: Coarse breath sounds bilaterally, wheeze audible ABDOMEN: Soft, nontender, nondistended, normoactive bowel sounds. No palpable organomegaly. MUSCULOSKELETAL: No joint swelling or deformity. EXTREMITIES: No cyanosis, clubbing, or pedal edema. NEUROLOGICAL: Gross neurological examination did not reveal any focal deficits. SKIN: No rashes. Assessment and plan Bacterial pneumonia Sputum culture positive for Pseudomonas Acute on chronic hypoxic respiratory failure Acute COPD exacerbation Non-ST elevation [place] COVID-19 infection pulmonary nodule left upper lobe Coronary artery disease with previous non-ST segment elevation myocardial infarction. CHF with impaired LV function, echo cardiac exam showing an ejection fraction of 35-40% Chronic anxiety/depression Hypertension Hyperlipidemia Acid reflux Pernicious anemia, history of Osteoarthritis History of SVT Monitor vital signs Monitor CBC Monitor CMP Continue telemetry monitoring Continue oxygen supplementation Continue IV Solu-Medrol Sputum culture positive for Pseudomonas, continue levaquin Continue breathing treatments Echo showed mildly increased left ventricle wall thickness, LVEF of 55-60%. No pericardial effusion Cardiology following, recommend ischemic workup once COVID-19 has resolved Pulmonary following,, recommend monitoring for 1 more day In regards to hypertension continue Imdur, Lopressor, Aldactone Regards to hyperlipidemia continue Lipitor Labs and medication were reviewed.. Continue same treatment. Continue with symptomatic treatment. Resume home medication. Monitor labs and vitals. DVT and GI prophylaxis. Further recommendations as per clinical course of the patient Dictation was produced using [employer] dictation software. please excuse any grammatical, word or spelling errors. Objective - Vital Signs Vital signs: Vital Signs Temp 97.7 F 02/28/23 07:16 Pulse 75 02/28/23 08:49 Resp 19 02/28/23 08:49 BP 144/84 02/28/23 07:16 Pulse Ox 100 02/28/23 07:16 FiO2 Intake & Output 02/27/23 02/28/23 02/28/23 18:59 06:59 18:59 Output Total 650 1000 Balance -650 -1000 Weight 63 kg Output: Urine 650 1000 Other: Voiding Method External Catheter External Catheter External Catheter # Voids 250 - Labs CBC & Chem 7: 02/24/23 07:26 02/24/23 07:26 Labs: Abnormal Lab Results - Last 24 Hours (Table) 02/27/23 02/28/23 Range/Units 19:55 06:01 POC Glucose (mg/dL) 133 H 112 H (70-110) mg/dL
[2023-02-28 16:44] LABS: Glucose,Whole Blood 94 mg/dL (70-110)
[2023-02-28 20:56] LABS: Glucose,Whole Blood 157 mg/dL (70-110)
[2023-02-28] MEDS: MONTELUKAST 10 MG TAB PO SCH (21:17)
[2023-02-28] MEDS: ATORVASTATIN 40 MG TAB PO SCH (21:17)
[2023-03-01] MEDS: methylPREDNISolone SOD SUCCI 40 MG/ML 1 ML VIAL IV SCH ×2 (00:43→07:49)
[2023-03-01] MEDS: HEPARIN SODIUM,PORCINE 5,000 UNIT/ML 1 ML VIAL SQ SCH ×3 (00:44→15:39)
[2023-03-01 05:08] LABS: Glucose,Whole Blood 127 mg/dL (70-110)
[2023-03-01] MEDS: SERTRALINE 100 MG TAB PO SCH (07:49)
[2023-03-01] MEDS: ONDANSETRON 4 MG/2 ML VIAL IVP PRN ×2 (07:49→14:34)
[2023-03-01] MEDS: SPIRONOLACTONE 25 MG TAB PO SCH (07:50)
[2023-03-01] MEDS: ALPRAZolam 0.5 MG TAB PO PRN ×3 (07:50→20:10)
[2023-03-01] MEDS: ACETAMINOPHEN TAB 325 MG TAB PO PRN ×3 (07:50→20:10)
[2023-03-01] MEDS: ISOSORBIDE MONONITRATE ER 30 MG TAB.ER.24H PO SCH (07:50)
[2023-03-01] MEDS: PANTOPRAZOLE 40 MG TABLET PO SCH (07:50)
[2023-03-01] MEDS: ASPIRIN 81 MG PO SCH (07:51)
[2023-03-01] MEDS: METOPROLOL SUCCINATE (ER) 50 MG TAB.ER.24H PO SCH (07:51)
[2023-03-01] MEDS: LEVOFLOXACIN 750 MG TAB PO SCH (07:51)
[2023-03-01] MEDS: SYMBICORT 160-4.5 MCG INHALER INHALATION SCH ×2 (09:21→20:37)
[2023-03-01] MEDS: ALBUTEROL HFA INHALER INHALATION SCH ×4 (09:21→20:37)
[2023-03-01 11:17] LABS: Glucose,Whole Blood 110 mg/dL (70-110)
--- NOTE | 2023-03-01 13:31 | P.PN ---
Subjective Progress Note Date: 03/01/23 78 year old female with history of recurrent chest pain, asthma, COPD, GERD, hypertension, hyperlipidemia, anxiety/depression who presented to the ER because of worsening shortness of breath. Patient stated that she woke up at 4:00 this morning with worsening shortness of breath. There was no complain of any chest pain. Patient baseline uses 2 L of oxygen but at home she was feeling more short of breath. Patient was complaining of dry cough. Patient tried to use her breathing treatment but that did not work. Patient continued to complain of worsening breathing. There was no complain of orthopnea or PND. Denied any dizziness or lightheadedness. There was no complain of swelling of feet. B ecause his worsening shortness of breath, patient called EMS and they brought her to the ER Initial lab work done in the ER showed WBC 10.8, hemoglobin 13.4, platelet count 377, sodium 139 potassium 4.9, BUN 11, creatinine 0.44 AST 24, AST 17, UA negative for infection Influenza A not detected Influenza B not detected RSV not detected COVID-19 detected EKG done in the ER showed heart rate of 121, no ST segment elevation or depression seen, no T-wave inversions seen. Chest x-ray done in the ER showed left lower lobe airspace opacity For pneumonia Patient admitted to internal medicine service 02/22. Patient seen and examined. States she feels much better compared to yes terday. Breathing has improved. Denies any chest pain. Currently on 2 L of oxygen. 02/23. Patient seen and examined. No Acute issues overnight. Continues to feel better. Currently on 2 L of oxygen which is her baseline. 02/24. Patient seen and examined. Lab work done showed WBC 4, hemoglobin 10.8, platelet count 304, sodium 134, potassium 4.6, BUN 22, creatinine 0.64. States her chest feels congested. Able to take deep breaths but gets short of breath and exertion. 02/25. Patient seen and examined. Complaining of productive cough. Still has Shortness of breath. Vital signs stable 02/26/23. Patient seen and examined. States she feels not good today. Complaining of shortness of breath and productive cough. Also complaining of nausea this morning 02/27. Patient seen and examined. Still complaining of congestion. States she does not feel at all better today. Complaining of shortness of breath on exertion. Complaining of wheezing 1/3. Patient seen and examined. States breathing has improved, continues to be on 2 L of oxygen. Denies any chest pain. Vital signs stable 1/4. Patient seen and examined. Patient gets apprehensive about going home. Discussed with her in detail regarding her breathing and the need for her to go to home. Patient very apprehensive wants to talk with burnt lime drawer REVIEW OF SYSTEMS: CONSTITUTIONAL: No fever, no malaise,. CARDIOVASCULAR: No chest pain, no palpitations, no syncope. PULMONARY: As mentioned above GASTROINTESTINAL: No diarrhea, no abdominal pain. NEUROLOGICAL: No headaches, no weakness, PHYSICAL EXAMINATION: GENERAL: The patient is alert and oriented x3, not in any acute distress. Well developed, well nourished. HEENT: Pupils are round and equally reacting to light. EOMI. No scleral icterus. No conjunctival pallor. Normocephalic, atraumatic. No pharyngeal erythema. No thyromegaly. CARDIOVASCULAR: S1 and S2 present. No murmurs, rubs, or gallops. PULMONARY: Coarse breath sounds bilaterally, wheeze audible ABDOMEN: Soft, nontender, nondistended, normoactive bowel sounds. No palpable organomegaly. MUSCULOSKELETAL: No joint swelling or deformity. EXTREMITIES: No cyanosis, clubbing, or pedal edema. NEUROLOGICAL: Gross neurological examination did not reveal any focal deficits. SKIN: No rashes. Assessment and plan Bacterial pneumonia Sputum culture positive for Pseudomonas Acute on chronic hypoxic respiratory failure Acute COPD exacerbation Non-ST elevation [place] COVID-19 infection pulmonary nodule left upper lobe Coronary artery disease with previous non-ST segment elevation myocardial infarction. CHF with impaired LV function, echo cardiac exam showing an ejection fraction of 35-40% Chronic anxiety/depression Hypertension Hyperlipidemia Acid reflux Pernicious anemia, history of Osteoarthritis History of SVT Monitor vital signs Monitor CBC Monitor CMP Continue telemetry monitoring Continue oxygen supplementation Change IV Solu Medrol to prednisone Sputum culture positive for Pseudomonas, continue levaquin, will need 7 days of total treatment Continue breathing treatments Echo showed mildly increased left ventricle wall thickness, LVEF of 55-60%. No pericardial effusion Cardiology following, recommend ischemic workup once COVID-19 has resolved Pulmonary following, In regards to hypertension continue Imdur, Lopressor, Aldactone Regards to hyperlipidemia continue Lipitor Labs and medication were reviewed.. Continue same treatment. Continue with symptomatic treatment. Resume home medication. Monitor labs and vitals. DVT a nd GI prophylaxis. Further recommendations as per clinical course of the patient Dictation was produced using [employer] dictation software. please excuse any grammatical, word or spelling errors. Objective - Vital Signs Vital signs: Vital Signs Temp 98.5 F 03/01/23 07:29 Pulse 67 03/01/23 07:29 Resp 18 03/01/23 07:29 BP 120/80 03/01/23 07:29 Pulse Ox 97 03/01/23 09:22 FiO2 Intake & Output 02/28/23 03/01/23 03/01/23 18:59 06:59 18:59 Output Total 700 1000 Balance -700 -1000 Weight 63 kg 59.5 kg Output: Urine 700 1000 Other: Voiding Method External Catheter External Catheter External Catheter # Voids 3 - Labs CBC & Chem 7: 02/24/23 07:26 02/24/23 07:26 Labs: Abnormal Lab Results - Last 24 Hours (Table) 02/28/23 03/01/23 Range/Units 20:54 05:06 POC Glucose (mg/dL) 157 H 127 H (70-110) mg/dL
--- NOTE | 2023-03-01 16:49 | P.PN ---
Subjective Progress Note Date: 03/01/23 Principal diagnosis: Acute exacerbation of COPD, exacerbated by acute COVID-19 infection This is a 76-year-old female patient who came into the emergency department with worsening shortness of breath. The patient denies having any chest pain. The patient is known to have COPD and the patient uses home O2 at 2 L/m nasal cannula. 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 Gonzalez. The patient also reported some cough. No significant sputum production. No pleurisy. No hemoptysis. No nausea or emesis. His cough was essentially dry. Based on that, he came into the emergency Department. The patient checked positive for Covid 19 infection. Influenza and RSV were both negative. The chest x-ray showed some chronic infiltration of the left lower lobe seen on previous chest x-rays. Currently is on 4 L of oxygen by nasal cannula. A CTA of the chest was also done that confirmed presence of moderate to severe emphysematous changes bilaterally. There was a 80 mm pulmonary nodule in the left upper lobe, irregular borders is highly suspicious for primary bronchogenic carcinoma. No significant infiltrates noted. Small left-sided pleural effusion. Moderate calcification of the aortic branches including coronary artery disease and ectasia of the ascending aorta measuring 3.5 cm in size. No evidence of any pulmonary embolism. Hospitalized for Covid 19 infection and worsening shortness of breath and acute on top of chronic hypoxic respiratory failure. The WBC count of 10.8, he was 15.4, platelet count is at 337 and UA is negative. Nitrites are within normal limits. Renal function is also within normal limits. The patient was started on enteric antibiotic coverage with IV Rocephin. The patient is also on IV Solu-Medrol 40 mg every 8 hours. The patient was started on Symbicort and IV fluids with normal saline at the rate of 100 mL an hour. The patient utilizes Symbicort on outpatient basis in addition to DuoNeb. Patient has hypertension hyperlipidemia and history of pernicious anemia. Patient also has history of CHF with chronic systolic heart failure with an ejection fraction of 35-40%. This is based on echocardiogram that was done back in 12/27/2021. She is limited on metoprolol. She is also on Aldactone on outpatient basis. Note that the cardiac enzymes were also checked and the patient ruled in fot acute NSTMI and the patient is currently on IV Heparin and trop I peaked at 1.7. and the ECG showed normal sinus rhythm. No ST segment elevation.The patient is known to have coronary artery disease. The patient hospitalization approximately year ago and underwent cardiac catheterization by Dr. Duran and this was done on 12/20/2021 revealing normal left main, normal circumflex, normal AV and there was some mild nonobstructive nonocclusive coronary artery disease. On today's evaluation of 02/22/2023, the patient is doing slightly improved compared to yesterday. She is in need for rescue inhaler and I started on Ventolin HFA. She is also on Symbicort. She remains on IV Solu-Medrol. She has Covid 19 infection and his incentive first infection. She has received only 1 single vaccine with J&J brand and this was given to her at the start of the pandemic. She has no other new complaints. The patient is to be seen by cardio logy regarding her acute non-ST segment elevation myocardial infarction patient's Jevity chest pain for now. On today's evaluation of 02/23/2023, the patient is feeling the same as yesterday. Still bronchospastic and wheezy on today's evaluation. She is having cough and congestion. She is currently on 2 L of oxygen by nasal cannula. She remains on IV Solu-Medrol. No new complaints otherwise for now. She is afebrile. The white cycles of 5.1, hemoglobin is 10.8, sodium is at 131, BUN is 27 with a creatinine of 0.57. From the cardiac standpoint, the patient is post acute non-ST segment elevation myocardial infarction. She is off IV heparin is on subcu heparin. Cardiac medications are to be continued. According to the physical function without any obvious segmental wall motion abnormalities. On 02/24/2023, I'm seeing the patient for a follow-up. She is coughing yellowish sputum in the sputum be sent for cultures. She is on no antibiotics for now. She remains on steroids. She is being treated for an acute COPD exacerbation. She also has positive Covid 19. White cell count is at 4 with a hemoglobin of 10.8, BUN is at 22 with a creatinine of 0.6 and the patient has been on 2 L of oxygen by nasal cannula with a pulse ox of 98%. She is afebrile. No other complaints otherwise for now. On 02/25/2023, I'm seeing the patient for a follow-up. The patient is still being treated for an acute COPD exacerbation. She remains on the on updrafts, Symbicort and IV Solu-Medrol. Note that the sputum turned out to be positive for pseudomonas aeruginosa, quinolone sensitive. Noted the patient is currently on Levaquin 750 mg by mouth daily. She is still struggling with her breathing. Limited improvement since yesterday. Remains on oxygen 2 L/m there are cannula. She is also positive for Covid 19. On 02/26/2023, the patient is still struggling with her breathing and COPD exacerbation. Note that she was originally infected with Covid 19. Subsequently her sputum sample also showed pseudomonas aeruginosa. She was producing copious amounts of rest or secretions and I had to cover this patient with antibiotics. The patient is currently on Levaquin 750 mg by mouth daily. Rest or secretions have subsided slightly compared to yesterday. She also Mucinex. He remains on IV Solu-Medrol 40 mg every 8 hours. She maintains on Symbicort and Ventolin [id number]. No fever. No chills. Overall feeling weak. Nausea. No emesis. The patient is seen today 02/27/2023 in follow-up on the regular medical floor. She is currently sitting up in bed. Awake and alert in no acute distress. She does continue with a loose nonproductive cough. She is having some chest discomfort, back discomfort and a headache. Her sputum was positive for pseudomonas aeruginosa. She is maintaining O2 saturations in the upper 90s on 2 L/m per nasal cannula. She's been afebrile. Hemodynamically stable. Glucose 121. She is continued on antibiotics in the form of Levaquin. Remains on Mucinex, bronchodilators, steroids, Singulair. Heparin for DVT prophylaxis. The patient is seen today 02/28/2019 for follow-up on the regular medical floor. She is awake and alert in no acute distress. She is maintaining O2 saturations in the 90s on 2 L/m per nasal cannula. She is better today compared to yesterday. Chest x-ray shows few scattered infiltrates nonspecific but may be compatible with atypical pneumonia. Improved aeration. Sputum culture was positive for pseudomonas aeruginosa. Blood cultures revealed no growth. Blood sugar 112. She is continued on Symbicort, Singulair, Mucinex, Ventolin, Solu- Medrol. Antibiotics in the form of Levaquin. Heparin for DVT prophylaxis. Reevaluated today on 03/01/23, patient is doing better, significant improvement, however the patient states that she is not back to her baseline. Clinically the lungs sound much better today compared to the last few days, patient remains on Levaquin for presumptive pseudomonas infection remains on Symbicort, Ventolin Solu-Medrol and Singulair. She is also on DVT prophylaxis. No major issues in the last 24 hours, patient is recovering nicely. I suggested that she could be discharged home however the patient seems to be quite reluctant stating that she is not feeling active normal yet Objective - Vital Signs Vital signs: Vital Signs Temp 98.5 F 03/01/23 14:10 Pulse 86 03/01/23 14:10 Resp 17 03/01/23 14:10 BP 126/83 03/01/23 14:10 Pulse Ox 99 03/01/23 14:10 FiO2 Intake & Output 02/28/23 03/01/23 03/01/23 18:59 06:59 18:59 Output Total 700 1000 Balance -700 -1000 Weight 63 kg 59.5 kg Output: Urine 700 1000 Other: Voiding Method External Catheter External Catheter External Catheter # Voids 2 - Exam Physical Exam: Revealed 78-year-old female in no distress Head: Atraumatic normocephalic HEENT:[Neck is supple.] [No neck masses.] [No thyromegaly.] [No JVD.] Chest: [Clear throughout, no crackles minimal wheezing on forced expiratory maneuver, Cardiac Exam: [Normal S1 and S2, no S3 gallop, no murmur.] Abdomen: [Soft, nontender, no megaly, no rebound, no guarding, normal bowel sounds.] Extremities: [No clubbing, no edema, no cyanosis.] Neurological Exam: [No focal neurologic deficit.]Alert oriented 3 Psychiatric: Normal mood affect and normal mental status examination Skin: No rash - Labs CBC & Chem 7: 02/24/23 07:26 02/24/23 07:26 Labs: Abnormal Lab Results - Last 24 Hours (Table) 02/28/23 03/01/23 Range/Units 20:54 05:06 POC Glucose (mg/dL) 157 H 127 H (70-110) mg/dL Assessment and Plan Assessment: Impression: Acute COVID-19 infection but no clear-cut evidence of acute COVID-19 pneumonia Acute exacerbation of COPD, Acute on chronic hypoxic respiratory failure currently on oxygen at 4 L/m nasal cannula, patient is on O2 at 2 L at baseline Positive pseudomonal infection noted in sputum, remains on Levaquin Acute non-ST segment elevation myocardial infarction the patient's troponin peaked at 1.7 Pulmonary nodule left upper lobe, measuring 18 mm in size, suspicious for primary bronchogenic carcinoma, needs outpatient follow-up and a PET scan Coronary artery disease with previous non-ST segment elevation myocardial infarction. His cardiac catheterization showing mild nonobstructive coronary artery disease CHF with impaired LV function, echo cardiac exam showing an ejection fraction of 35-40%, repeat echocardiogram shows an ejection fraction of 55-60% without any segmental wall motion abnormalities. Chronic anxiety/depression Hypertension Hyperlipidemia Acid reflux Pernicious anemia, history of Osteoarthritis Recommendation: Continue present treatment plan Continue bronchodilators Continue oxygen and titrate accordingly Continue Levaquin Clear to be discharged home in the next 24 hours Follow-up with Dr. Solano regarding her left lung nodule Patient will need outpatient PET scan We will likely clear the patient for discharge in a.m. Time with Patient: Less than 30
[2023-03-01] MEDS: ATORVASTATIN 40 MG TAB PO SCH (20:10)
[2023-03-01] MEDS: MONTELUKAST 10 MG TAB PO SCH (20:10)
[2023-03-01 21:06] LABS: Glucose,Whole Blood 85 mg/dL (70-110)
[2023-03-02] MEDS: HEPARIN SODIUM,PORCINE 5,000 UNIT/ML 1 ML VIAL SQ SCH ×2 (00:06→08:16)
[2023-03-02 05:17] LABS: Glucose,Whole Blood 80 mg/dL (70-110)
[2023-03-02] MEDS: ONDANSETRON 4 MG/2 ML VIAL IVP PRN ×2 (08:14→14:09)
[2023-03-02] MEDS: ALPRAZolam 0.5 MG TAB PO PRN ×2 (08:14→14:09)
[2023-03-02 08:15] VITALS: RESP 18
[2023-03-02] MEDS: SERTRALINE 100 MG TAB PO SCH (08:15)
[2023-03-02] MEDS: ISOSORBIDE MONONITRATE ER 30 MG TAB.ER.24H PO SCH (08:15)
[2023-03-02] MEDS: ASPIRIN 81 MG PO SCH (08:15)
[2023-03-02] MEDS: SPIRONOLACTONE 25 MG TAB PO SCH (08:15)
[2023-03-02] MEDS: PANTOPRAZOLE 40 MG TABLET PO SCH (08:15)
[2023-03-02] MEDS: METOPROLOL SUCCINATE (ER) 50 MG TAB.ER.24H PO SCH (08:15)
[2023-03-02] MEDS: ACETAMINOPHEN TAB 325 MG TAB PO PRN ×2 (08:15→14:09)
[2023-03-02] MEDS: LEVOFLOXACIN 750 MG TAB PO SCH (08:15)
[2023-03-02] MEDS ORDERED: predniSONE 20 MG TAB PO SCH (09:00)
[2023-03-02] MEDS: SYMBICORT 160-4.5 MCG INHALER INHALATION SCH (09:03)
[2023-03-02] MEDS: ALBUTEROL HFA INHALER INHALATION SCH ×3 (09:03→16:36)
[2023-03-02 11:35] LABS: Glucose,Whole Blood 98 mg/dL (70-110)
[2023-03-02 13:34] VITALS: BP 122/70; PULSE 83; TEMP 97.7
--- NOTE | 2023-03-02 15:22 | P.PN ---
Subjective Progress Note Date: 03/02/23 This is a 76-year-old female patient who came into the emergency department with worsening shortness of breath. The patient denies having any chest pain. The patient is known to have COPD and the patient uses home O2 at 2 L/m nasal cannula. His primary structural test engineer Dr. Gonzalez. The patient also reported some cough. No significant sputum production. No pleurisy. No hemoptysis. No nausea or emesis. His cough was essentially dry. Based on that, he came into the emergency Department. The patient checked positive for Covid 19 infection. Influenza and RSV were both negative. The chest x-ray showed some chronic infiltration of the left lower lobe seen on previous chest x-rays. Currently is on 4 L of oxygen by nasal cannula. A CTA of the chest was also done that confirmed presence of moderate to severe emphysematous changes bilaterally. There was a 80 mm pulmonary nodule in the left upper lobe, irregular borders is highly suspicious for primary bronchogenic carcinoma. No significant infiltrates noted. Small left-sided pleural effusion. Moderate calcification of the aortic branches including coronary artery disease and ectasia of the ascending aorta measuring 3.5 cm in size. No evidence of any pulmonary embolism. Hospitalized for Covid 19 infection and worsening shortness of breath and acute on top of chronic hypoxic respiratory failure. The WBC count of 10.8, he was 15.4, platelet count is at 337 and UA is negative. Nitrites are within normal limits. Renal function is also within normal limits. The patient was started on enteric antibiotic coverage with IV Rocephin. The patient is also on IV Solu-Medrol 40 mg every 8 hours. The patient was started on Symbicort and IV fluids with normal saline at the rate of 100 mL an hour. The patient utilizes Symbicort on outpatient basis in addition to DuoNeb. Patient has hypertension hyperlipidemia and history of pernicious anemia. Patient also has history of CHF with chronic systolic heart failure with an ejection fraction of 35-40%. This is based on echocardiogram that was done back in 12/27/2021. She is limi filiberto on metoprolol. She is also on Aldactone on outpatient basis. Note that the cardiac enzymes were also checked and the patient ruled in fot acute NSTMI and the patient is currently on IV Heparin and trop I peaked at 1.7. and the ECG showed normal sinus rhythm. No ST segment elevation.The patient is known to have coronary artery disease. The patient hospitalization approximately year ago and underwent cardiac catheterization by Dr. Duran and this was done on 12/20/2021 revealing normal left main, normal circumflex, normal AV and there was some mild nonobstructive nonocclusive coronary artery disease. On today's evaluation of 02/22/2023, the patient is doing slightly improved compared to yesterday. She is in need for rescue inhaler and I started on Ventolin HFA. She is also on Symbicort. She remains on IV Solu-Medrol. She has Covid 19 infection and his incentive first infection. She has received only 1 single vaccine with J[employer] brand and this was given to her at the start of the pandemic. She has no other new complaints. The patient is to be seen by cardiology regarding her acute non-ST segment elevation myocardial infarction patient's Jevity chest pain for now. On today's evaluation of 02/23/2023, the patient is feeling the same as yesterday. Still bronchospastic and wheezy on today's evaluation. She is having cough and congestion. She is currently on 2 L of oxygen by nasal cannula. She remains on IV Solu-Medrol. No new complaints otherwise for now. She is afebrile. The white cycles of 5.1, hemoglobin is 10.8, sodium is at 131, BUN is 27 with a creatinine of 0.57. From the cardiac standpoint, the patient is post acute non-ST segment elevation myocardial infarction. She is off IV heparin is on subcu heparin. Cardiac medications are to be continued. According to the physical function without any obvious segmental wall motion abnormalities. On 02/24/2023, I'm seeing the patient for a follow-up. She is coughing yellowish sputum in the sputum be sent for cultures. She is on no antibiotics for now. She remains on steroids. She is being treated for an acute COPD exacerbation. She also has positive Covid 19. White cell count is at 4 with a hemoglobin of 10.8, BUN is at 22 with a creatinine of 0.6 and the patient has been on 2 L of oxygen by nasal cannula with a pulse ox of 98%. She is afebrile. No other complaints otherwise for now. On 02/25/2023, I'm seeing the patient for a follow-up. The patient is still being treated for an acute COPD exacerbation. She remains on the on updrafts, Symbicort and IV Solu-Medrol. Note that the sputum turned out to be positive for pseudomonas aeruginosa, quinolone sensitive. Noted the patient is currently on Levaquin 750 mg by mouth daily. She is still struggling with her breathing. Limited improvement since yesterday. Remains on oxygen 2 L/m there are cannula. She is also positive for Covid 19. On 02/26/2023, the patient is still struggling with her breathing and COPD exacerbation. Note that she was originally infected with Covid 19. Subsequently her sputum sample also showed pseudomonas aeruginosa. She was producing copious amounts of rest or secretions and I had to cover this patient with antibiotics. The patient is currently on Levaquin 750 mg by mouth daily. Rest or secretions have subsided slightly compared to yesterday. She also Mucinex. He remains on IV Solu-Medrol 40 mg every 8 hours. She maintains on Symbicort and Ventolin [id number]. No fever. No chills. Overall feeling weak. Nausea. No emesis. The patient is seen today 02/27/2023 in follow-up on the regular medical floor. She is currently sitting up in bed. Awake and alert in no acute distress. She does continue with a loose nonproductive cough. She is having some chest discomfort, back discomfort and a headache. Her sputum was positive for pseudomonas aeruginosa. She is maintaining O2 saturations in the upper 90s on 2 L/m per nasal cannula. She's been afebrile. Hemodynamically stable. Glucose 121. She is continued on antibiotics in the form of Levaquin. Remains on M ucinex, bronchodilators, steroids, Singulair. Heparin for DVT prophylaxis. The patient is seen today 02/28/2019 for follow-up on the regular medical floor. She is awake and alert in no acute distress. She is maintaining O2 saturations in the 90s on 2 L/m per nasal cannula. She is better today compared to yesterday. Chest x-ray shows few scattered infiltrates nonspecific but may be compatible with atypical pneumonia. Improved aeration. Sputum culture was positive for pseudomonas aeruginosa. Blood cultures revealed no growth. Blood sugar 112. She is continued on Symbicort, Singulair, Mucinex, Ventolin, Solu- Medrol. Antibiotics in the form of Levaquin. Heparin for DVT prophylaxis. Reevaluated today on 03/01/23, patient is doing better, significant improvement, however the patient states that she is not back to her baseline. Clinically the lungs sound much better today compared to the last few days, patient remains on Levaquin for presumptive pseudomonas infection remains on Symbicort, Ventolin Solu-Medrol and Singulair. She is also on DVT prophylaxis. No major issues in the last 24 hours, patient is recovering nicely. I suggested that she could be discharged home however the patient seems to be quite reluctant stating that she is not feeling active normal yet The patient is seen today 03/02/2023 in follow-up on the regular medical floor. She is currently sitting up in a chair. Awake and alert in no acute distress. She is maintaining O2 saturations in the upper 90s on 2 L/m per nasal cannula. She's been afebrile. Hemodynamically stable. Sputum culture was positive for pseudomonas aeruginosa. Blood cultures revealed no growth. Glucose 98. She is continued on Symbicort, Singulair, Mucinex, Ventolin, Solu-Medrol. Antibiotics in the form of Levaquin. Heparin for DVT prophylaxis. Objective - Vital Signs Vital signs: Vital Signs Temp 97.7 F 03/02/23 13:17 Pulse 83 03/02/23 13:17 Resp 18 03/02/23 13:17 BP 122/70 03/02/23 13:17 Pulse Ox 97 03/02/23 13:17 FiO2 Intake & Output 03/01/23 03/02/23 03/02/23 18:59 06:59 18:59 Weight 57.5 kg Other: Voiding Method External Catheter Bedside Commode Bedside Commode Diaper Diaper # Voids 2 1 3 - Exam GENERAL EXAM: Alert, 78-year-old female, sitting up in bed, on 2 L nasal cannula, comfortable in no apparent distress. HEAD: Normocephalic. EYES: Normal reaction of pupils, equal size. NOSE: Clear with pink turbinates. THROAT: No erythema or exudates. NECK: No masses, no JVD. CHEST: No chest wall deformity. LUNGS: Equal air entry with few scattered rhonchi. CVS: S1 and S2 normal with no audible murmur, regular rhythm. ABDOMEN: No hepatosplenomegaly, normal bowel sounds, no guarding or rigidity. SPINE: No scoliosis or deformity SKIN: No rashes CENTRAL NERVOUS SYSTEM: No focal deficits, tone is normal in all 4 extremities. EXTREMITIES: There is no peripheral edema. No clubbing, no cyanosis. Peripheral pulses are intact. - Labs CBC & Chem 7: 02/24/23 07:26 02/24/23 07:26 Assessment and Plan Assessment: Acute Covid 19 infection, no clear indication for pneumonia. No significant pneumonia based on CT angiogram findings. No evidence of any pulmonary embolism.. The patient has received vaccination in the past 1 with [employer] and this is a first infection with Covid 19. No previous infections reported. The patient remains on IV Solu-Medrol. Pseudomonas was also cultured in the sputum. The patient is currently on Levaquin. There may be a true infection as the patient is producing copious amount of rest or secretions, not typical of Covid 19. Acute exacerbation of COPD, improved Acute on top of chronic hypoxic respiratory failure currently on oxygen at 2 L/m nasal cannula, patient is on O2 at 2 L at baseline Acute non-ST segment elevation myocardial infarction the patient's troponin peaked at 1.7 Pulmonary nodule left upper lobe, measuring 18 mm in size, suspicious for primary bronchogenic carcinoma Coronary artery disease with previous non-ST segment elevation myocardial infarction. His cardiac catheterization showing mild nonobstructive coronary artery disease CHF with impaired LV function, echo cardiac exam showing an ejection fraction of 35-40%, repeat echocardiogram shows an ejection fraction of 55-60% without any segmental wall motion abnormalities. Chronic anxiety/depression Hypertension Hyperlipidemia Acid reflux Pernicious anemia, history of Osteoarthritis Plan: The patient was seen and evaluated Medications reviewed Continue the current treatment plan Remains on Levaquin Titrate the FiO2 as tolerated For discharge from pulmonary standpoint Complete prednisone taper Continue her home oxygen, medications Follow-up with her structural test engineer especially regarding the pulmonary nodules She verbalizes understanding and is agreeable to the plan I have personally seen and examined the patient, performed the documentation and the assessment and plan as written. Number of minutes spent on the visit: 10.
[2023-03-02 15:33] VITALS: BMI 22.4
== END 2023-03-02 17:01 | disposition home health service (06) | DRG 177 ==
LOC: EC 10:18 → 3SCARD 12:15 → 4SSUR 02-22 15:09 → 3SCARD 02-22 16:51 → 4SSUR 02-24 12:09
PROVIDERS: ADMIT Internal Medicine; ATTEND Internal Medicine
DX: U07.1 COVID-19 (principal); I21.4 Non-ST elevation (NSTEMI) myocardial infarction; J96.21 Acute and chronic respiratory failure with hypoxia; J15.1 Pneumonia due to Pseudomonas; I42.9 Cardiomyopathy, unspecified; J44.1 Chronic obstructive pulmonary disease with (acute) exacerbation; I50.22 Chronic systolic (congestive) heart failure; J44.0 Chronic obstructive pulmonary disease with (acute) lower respiratory infection; I11.0 Hypertensive heart disease with heart failure; I77.810 Thoracic aortic ectasia; E86.0 Dehydration; D51.0 Vitamin B12 deficiency anemia due to intrinsic factor deficiency; K80.20 Calculus of gallbladder without cholecystitis without obstruction; K21.9 Gastro-esophageal reflux disease without esophagitis; E78.5 Hyperlipidemia, unspecified; I25.10 Atherosclerotic heart disease of native coronary artery without angina pectoris; F41.9 Anxiety disorder, unspecified; F32.A Depression, unspecified; M19.90 Unspecified osteoarthritis, unspecified site; R91.1 Solitary pulmonary nodule; Z99.81 Dependence on supplemental oxygen; Z79.51 Long term (current) use of inhaled steroids; Z79.899 Other long term (current) drug therapy; Z87.891 Personal history of nicotine dependence; Z96.642 Presence of left artificial hip joint; Z82.49 Family history of ischemic heart disease and other diseases of the circulatory system
CPT/HCPCS: 36415; 71045; 71046; 71275; 80048; 80053; 81003; 83735; 83880; 84145; 84484; 85025; 85027; 85379; 85610; 85730; 87040; 87070; 87077; 87186; 87205; 87449; 87636; 93005; 93308; 94640; 94760; 96365; 96366; 96367; 96368; 96372; 96375; 96376; 99291

== ENCOUNTER 2023-09-05 05:59 | Emergency (ER) | payer MEDICARE, OTHER ==
[2023-09-05 06:06] VITALS: RESP 18; TEMP 97.9
--- NOTE | 2023-09-05 06:28 | ED ---
Fall HPI - General Chief Complaint: Fall Stated Complaint: Fall, Head Injury Time Seen by Provider: 09/05/23 06:14 Source: patient, EMS, RN notes reviewed Mode of arrival: EMS Limitations: no limitations - History of Present Illness Initial Comments: 78-year-old female presents emergency department via EMS chief complaint of a fall. She states she tried to get her walker over her oxygen tubing which she states it caught causing her to fall. Patient did strike her head on the right side her tetanus up-to-date. She had no loss conscious she complains of mild headache no other specific complaints. Patient states that she is oxygen dependent denies any increasing shortness of breath, chest pain denies any hip pain no abdominal complaints - Related Data Home Medications Medication Instructions Recorded Confirmed Simvastatin [Zocor] 40 mg PO HS 02/20/15 02/21/23 Montelukast Sodium [Singulair] 10 mg PO HS 03/01/16 02/21/23 Albuterol Sulfate [Ventolin HFA] 2 puff INHALATION RT-Q4H PRN 06/20/21 02/21/23 Ipratropium/Albuterol Sulfate 1 puff INHALATION RT-QID 06/20/21 02/21/23 [Combivent Respimat Inhaler] Omeprazole 20 mg PO DAILY 06/20/21 02/21/23 Sertraline [Zoloft] 200 mg PO DAILY 06/20/21 02/21/23 Acetaminophen [Tylenol Extra 1,000 mg PO Q6H PRN 11/08/21 02/21/23 Strength] Metoprolol Succinate (ER) [Toprol 50 mg PO DAILY 02/25/22 02/21/23 XL] ALPRAZolam [Xanax] 0.5 mg PO TID PRN 02/21/23 02/21/23 Ipratropium-Albuterol Nebulize 3 ml INHALATION RT-QID PRN 02/21/23 02/21/23 [Duoneb 0.5 mg-3 mg/3 ml Soln] guaiFENesin [Mucinex] 600 mg PO Q12H PRN 02/21/23 02/21/23 Previous Rx's Medication Instructions Recorded Budesonide-Formot 160-4.5 Mcg 2 puff INHALATION RT-BID #1 inh 12/20/21 [Symbicort 160-4.5 Mcg Inhaler] Nitroglycerin Sl Tabs [Nitrostat] 0.4 mg SUBLINGUAL Q5M PRN #30 tab 12/28/21 Spironolactone [Aldactone] 25 mg PO DAILY #30 tab 12/28/21 Aspirin 81 mg PO DAILY tab 03/02/23 Isosorbide Mononitrate ER [Imdur] 30 mg PO DAILY 30 Days #30 tab 03/02/23 Levofloxacin [Levaquin] 750 mg PO DAILY 5 Days #5 tab 03/02/23 predniSONE [Deltasone] 40 mg PO DAILY 5 Days #10 tab 03/02/23 Allergies Allergy/AdvReac Type Severity Reaction Status Date / Time No Known Allergies Allergy Verified 09/05/23 06:06 Review of Systems ROS Statement: Those systems with pertinent positive or pertinent negative responses have been documented in the HPI. ROS Other: All systems not noted in ROS Statement are negative. Past Medical History Past Medical History: Asthma, Chest Pain / Angina, COPD, GERD/Reflux, Hyperlipidemia, Hypertension, Pneumonia Additional Past Medical History / Comment(s): oxygen [place] @2L continuous, gallstones, pernicious anemia History of Any Multi-Drug Resistant Organisms: Other MDRO Past Surgical History: Hernia Repair, Joint Replacement, Orthopedic Surgery, Tonsillectomy Additional Past Surgical History / Comment(s): left elbow surgery, abscess in [facility] [place] area, abdominial scar tissue, tamie oophorectomy, left knee surgery, left hip replacement Past Anesthesia/Blood Transfusion Reactions: No Reported Reaction Past Psychological History: Anxiety, Depression Smoking Status: Former smoker Past Alcohol Use History: None Reported Past Drug Use History: None Reported - Past Family History Mother Family Medical History: No Reported History Additional Family Medical History / Comment(s): MS Father Family Medical History: CVA/TIA, Myocardial Infarction ([place]) Additional Family Medical History / Comment(s): ETOH General Exam Limitations: no limitations General appearance: alert, in no apparent distress Head exam: Present: atraumatic, normocephalic. Absent: normal inspection (Right temporal laceration) Eye exam: Present: normal appearance, PERRL, EOMI. Absent: scleral icterus, conjunctival injection, periorbital swelling ENT exam: Present: normal exam, normal oropharynx, mucous membranes moist Neck exam: Present: normal inspection, full ROM. Absent: tenderness, meningismus, lymphadenopathy Respiratory exam: Present: normal lung sounds bilaterally. Absent: respiratory distress, wheezes, rales, rhonchi, stridor Cardiovascular Exam: Present: regular rate, normal rhythm, normal heart sounds. Absent: systolic murmur, diastolic murmur, rubs, gallop, clicks GI/Abdominal exam: Present: soft, normal bowel sounds. Absent: distended, tenderness, guarding, rebound, rigid Back exam: Present: full ROM Neurological exam: Present: alert, oriented X3, CN II-XII intact, reflexes normal. Absent: motor sensory deficit Skin exam: Present: warm, dry, intact, normal color. Absent: rash Course Vital Signs 09/05/23 09/05/23 06:03 08:46 Temperature 97.9 F Pulse Rate 93 80 Respiratory 18 18 Rate Blood Pressure 122/86 136/78 O2 Sat by Pulse 96 96 Oximetry Procedures - Laceration Laceration #1 Consent Obtained: verbal consent Indication: laceration Site: scalp, face Size (cm): 1 Description: linear Pre-repair: wound explored, irrigated extensively Type of Sutures: other (micromend medium) Medical Decision Making - Medical Decision Making Was pt. sent in by a medical professional or institution (, PA, IMMIGRATION PATROL INSPECTOR, urgent care, hospital, or halfway...) When possible be specific @ -No Did you speak to anyone other than the patient for history (EMS, parent, family, police, friend...)? What history was obtained from this source @ -No Did you review nursing and triage notes (agree or disagree)? Why? @ -I reviewed and agree with nursing and triage notes Were old charts reviewed (outside hosp., previous admission, EMS record, old EKG, old radiological studies, urgent care reports/EKG's, halfway records)? Report findings @ -No old charts were reviewed Differential Diagnosis (chest pain, altered mental status, abdominal pain women, abdominal pain men, vaginal bleeding, weakness, fever, dyspnea, syncope, headache, dizziness, GI bleed, back pain, seizure, CVA, palpatations, mental health, musculoskeletal)? @ -Fall, intracranial hemorrhage, scalp laceration, weakness, hypomagnesemia, dehydration EKG interpreted by me (3pts min.). @ -As above X-rays interpreted by me (1pt min.). @ -None done CT interpreted by me (1pt min.). @ -[CT brain, C-spine showing no acute intracranial hemorrhage, mass effect cervical fracture there are possible Apical lung masses U/S interpreted by me (1pt. min.). @ -None done What testing was considered but not performed or refused? (CT, X-rays, U/S, labs)? Why? @ -None What meds were considered but not given or refused? Why? @ -None Did you discuss the management of the patient with other professionals (professionals i.e. , PA, IMMIGRATION PATROL INSPECTOR, lab, RT, psych nurse, rn social services, metal ceiling hanger, teacher, credit administration officer, case finishing machine adjuster)? Give summary @ -No Was smoking cessation discussed for >3mins.? @ -No Was critical care preformed (if so, how long)? @ -No Were there social determinants of health that impacted care today? How? (Homelessness, low income, unemployed, alcoholism, drug addiction, transportation, low edu. Level, literacy, decrease access to med. care, prison, rehab)? @ -No Was there de-escalation of care discussed even if they declined (Discuss DNR or withdrawal of care, Hospice)? DNR status @ -No What co-morbidities impacted this encounter? (DM, HTN, Smoking, COPD, CAD, Cancer, CVA, ARF, Chemo, Hep., AIDS, mental health diagnosis, sleep apnea, morbid obesity)? @ -COPD Was patient admitted / discharged? Hospital course, mention meds given and route, prescriptions, significant lab abnormalities, going to OR and other pertinent info. @ -Discharged patient CT did not show any intracranial hemorrhage did have findings of possible underlying lung issues patient was updated and advised that she needs to follow-up for outpatient CT patient feels comfortable with discharge return parameters kt.] Undiagnosed new problem with uncertain prognosis? @ -No Drug Therapy requiring intensive monitoring for toxicity (Heparin, Nitro, Insulin, Cardizem)? @ -No Were any procedures done? @ -No Diagnosis/symptom? @ -Fall, scalp laceration Acute, or Chronic, or Acute on Chronic? @ -Acute Uncomplicated (without systemic symptoms) or Complicated (systemic symptoms)? @ -uncomplicated Side effects of treatment? @ -No Exacerbation, Progression, or Severe Exacerbation? @ -No Poses a threat to life or bodily function? How? (Chest pain, [place], [place], pneumonia, PE, COPD, DKA, ARF, appy, cholecystitis, CVA, Diverticulitis, Homicidal, Suicidal, threat to staff... and all critical care pts) @ -No - Lab Data Result diagrams: 09/05/23 06:10 09/05/23 06:10 Lab Results 09/05/23 09/05/23 Range/Units 06:10 06:10 WBC 12.0 H (3.8-10.6) k/uL RBC 4.18 (3.80-5.40) m/uL Hgb 9.6 L (11.4-16.0) gm/dL Hct 33.6 L (34.0-46.0) % MCV 80.3 (80.0-100.0) fL MCH 22.9 L (25.0-35.0) pg MCHC 28.6 L (31.0-37.0) g/dL RDW 16.6 H (11.5-15.5) % Plt Count 676 H (150-450) k/uL MPV 7.5 Neutrophils % 77 % Lymphocytes % 13 % Monocytes % 5 % Eosinophils % 3 % Basophils % 0 % Neutrophils # 9.2 H (1.3-7.7) k/uL Lymphocytes # 1.5 (1.0-4.8) k/uL Monocytes # 0.6 (0-1.0) k/uL Eosinophils # 0.4 (0-0.7) k/uL Basophils # 0.1 (0-0.2) k/uL Hypochromasia Marked Anisocytosis Slight Sodium 134 L (137-145) mmol/L Potassium 4.8 (3.5-5.1) mmol/L Chloride 99 (98-107) mmol/L Carbon Dioxide 31 H (22-30) mmol/L Anion Gap 4 mmol/L BUN 10 (7-17) mg/dL Creatinine 0.42 L (0.52-1.04) mg/dL Est GFR (CKD-EPI)AfAm >90 (>60 ml/min/1.73 sqM) Est GFR (CKD-EPI)NonAf >90 (>60 ml/min/1.73 sqM) Glucose 110 H (74-99) mg/dL Calcium 9.4 (8.4-10.2) mg/dL Magnesium 2.0 (1.6-2.3) mg/dL Total Bilirubin 0.5 (0.2-1.3) mg/dL AST 24 (14-36) U/L ALT 12 (4-34) U/L Alkaline Phosphatase 54 (38-126) U/L Total Protein 6.6 (6.3-8.2) g/dL Albumin 3.6 (3.5-5.0) g/dL - EKG Data -: EKG Interpreted by Me EKG Comments: EKG performed at 6: 14 sinus rhythm rate of 87 KS 164 QRS 91 QT/QTc 365/409 Disposition Clinical Impression: Fall, Scalp laceration Disposition: HOME SELF-CARE Condition: Stable Instructions (If sedation given, give patient instructions): Head Injury (ED) Additional Instructions: Please return to the Emergency Department if symptoms worsen or any other concerns. Is patient prescribed a controlled substance at d/c from ED?: No Referrals: Tory Gonzalez MD [Primary Care Provider] - 1-2 days Time of Disposition: 08:36
[2023-09-05 06:34] LABS: Anisocytosis Slight; Basophils # (A) 0.1 k/uL (0-0.2); Basophils % (A) 0 %; Eosinophils # (A) 0.4 k/uL (0-0.7); Eosinophils % (A) 3 %; HCT 33.6 % (34.0-46.0); HGB 9.6 gm/dL (11.4-16.0); Hypochromasia Marked; Lymphocytes # (A) 1.5 k/uL (1.0-4.8); Lymphocytes % (A) 13 %; MCH 22.9 pg (25.0-35.0); MCHC 28.6 g/dL (31.0-37.0); MCV 80.3 fL (80.0-100.0); Mean Platelet Volume 7.5; Monocytes # (A) 0.6 k/uL (0-1.0); Monocytes % (A) 5 %; Neutrophils # (A) 9.2 k/uL (1.3-7.7); Neutrophils % (A) 77 %; Platelet Count 676 k/uL (150-450); RBC 4.18 m/uL (3.80-5.40); RDW 16.6 % (11.5-15.5)
[2023-09-05 06:45] LABS: ALT 12 U/L (4-34); AST 24 U/L (14-36); African American GFR (CKD) >90 (>60 ml/min/1.73 sqM); Albumin 3.6 g/dL (3.5-5.0); Alkaline Phosphatase 54 U/L (38-126); Anion Gap 4 mmol/L; Blood Urea Nitrogen 10 mg/dL (7-17); Calcium 9.4 mg/dL (8.4-10.2); Carbon Dioxide 31 mmol/L (22-30); Chloride 99 mmol/L (98-107); Glucose 110 mg/dL (74-99); Non-African American GFR(CKD) >90 (>60 ml/min/1.73 sqM); Potassium 4.8 mmol/L (3.5-5.1); Sodium 134 mmol/L (137-145); Total Bilirubin 0.5 mg/dL (0.2-1.3); Total Protein 6.6 g/dL (6.3-8.2)
[2023-09-05] MEDS: LIDOCAINE/EPINEPHR/TETRACAINE 5 ML BOTTLE TOPICAL ONE (07:12)
--- NOTE | 2023-09-05 08:09 | CT ---
EXAMINATION TYPE: CT brain montserrat wo con DATE OF EXAM: 09/05/2023 COMPARISON: 07/25/2022 HISTORY: Fall, Head injury CT DLP: 1218.2 mGycm, Automated exposure control for dose reduction was used. CONTRAST: Patient injected with 0 mL of Isovue 300. CT of the brain is performed utilizing 3 mm thick sections through the posterior fossa and 3 mm thick sections through the remaining calvarium. Study is performed within 24 hours of arrival to the hospital. Soft tissue swelling over the right temporal region. No underlying fractures evident. No abnormal hyperdensity is present to suggest an acute intracranial hemorrhage. No mass lesion is evident. No acute infarcts are evident. Ventricles and sulci are appropriate for the patient age. Paranasal sinuses and mastoid air cells within the [id number] are clear. IMPRESSIONS: 1. No acute intracranial processes. 2. Superficial soft tissue swelling right temporal region CT cervical spine. COMPARISON: None CT of the cervical spine is performed in the axial plane at 2 mm thick sections. Reconstructed image s in the coronal, and sagittal plane are reviewed on the computer. No acute fractures are evident. Vertebral body alignment is normal. Disc heights are preserved. Vertebral body heights are narrowed. No spinal canal stenosis is evident. No neural foraminal stenosis is evident. Emphysematous changes are in the visualized lung apices. Some scarring appears to be present. No 0.4 cm mass posterior lateral left apex the 0.6 cm posterior medial right apex may be present. Additi onal CT chest workup recommended. IMPRESSION: 1. No acute osseous abnormality cervical spine. 2. Degenerative disc changes. 3. Emphysematous changes and spiculated small densities at the lung apices. Additional workup with CT chests recommended.
[2023-09-05 10:29] VITALS: BP 131/85; PULSE 68
== END 2023-09-05 10:29 | disposition home or self-care (01) ==
LOC: EC 05:59
DX: S01.01XA Laceration without foreign body of scalp, initial encounter (principal); Z87.891 Personal history of nicotine dependence; W18.30XA Fall on same level, unspecified, initial encounter
CPT/HCPCS: 12011; 36415; 70450; 72125; 80053; 83735; 85025; 93005; 99284

== ENCOUNTER 2024-01-06 18:32 | Inpatient (IN) | payer MEDICARE, OTHER ==
--- NOTE | 2024-01-06 19:29 | XR ---
EXAMINATION TYPE: XR hand limited LT DATE OF EXAM: 01/06/2024 7:20 PM COMPARISON: None CLINICAL INDICATION: Female, 78 years old with history of Fall from bed, struck left side; PHH pain TECHNIQUE: XR hand limited LT Frontal, lateral views were obtained. FINDINGS: Normal alignment of the visualized joints. No acute osseous pathology is identified. No e vidence of soft tissue swelling. Multifocal degeneration changes with joint space narrowing and osteo phyte formation. IMPRESSION: 1. No acute osseous pathology. 2. Multifocal osteoarthrosis throughout the joints of the hand. [facility], , 01/06/2024 7:27 PM
--- NOTE | 2024-01-06 19:30 | XR ---
EXAMINATION TYPE: XR forearm LT DATE OF EXAM: 01/06/2024 7:20 PM COMPARISON: None CLINICAL INDICATION: Female, 78 years old with history of Fall from bed, struck left side; pain TECHNIQUE: XR forearm LT; forearm was examined in AP and lateral projections. FINDINGS: No acute osseous pathology, soft tissue swelling or joint dislocations are seen. IMPRESSION: No evidence of acute fracture. [facility], , 01/06/2024 7:28 PM
--- NOTE | 2024-01-06 19:31 | XR ---
EXAMINATION TYPE: XR humerus LT DATE OF EXAM: 01/06/2024 7:22 PM COMPARISON: None CLINICAL INDICATION: Female, 78 years old with history of Fall from bed, struck left side; pain TECHNIQUE: XR humerus LT examined in frontal and lateral projections. FINDINGS: No evidence of acute osseous pathology, joint dislocation, or soft tissue swelling. The rem aining portions of the visualized chest are unremarkable. Mild shoulder degeneration changes with radha nt space narrowing and osteophyte formation. IMPRESSION: 1. No acute osseous pathology. 2. Mild left shoulder osteoporosis. [facility], , 01/06/2024 7:29 PM
--- NOTE | 2024-01-06 19:32 | XR ---
EXAMINATION TYPE: XR shoulder limited LT DATE OF EXAM: 01/06/2024 7:22 PM COMPARISON: None CLINICAL INDICATION: Female, 78 years old with history of Fall from bed, struck left side; [facility] pain TECHNIQUE: XR shoulder limited LT; examined in AP, internally rotated and scapular Y projections. FINDINGS: No evidence of acute osseous pathology, joint dislocation, or soft tissue swelling. The remaining po rtions of the visualized chest are unremarkable. Degeneration changes of the acromion, distal clavic le with osteophyte formation. There is osteophyte formation of the glenoid and humeral head. There is joint space narrowing of glenohumeral joint. IMPRESSION: 1. No acute osseous pathology. 2. Mild shoulder osteoarthrosis. [facility], , 01/06/2024 7:30 PM
--- NOTE | 2024-01-06 19:36 | CT ---
EXAMINATION TYPE: CT brain cspine wo con DATE OF EXAM: 01/06/2024 7:08 PM COMPARISON: None. CLINICAL INDICATION: Female, 78 years old with history of pain; fell out bed, head and neck pain TECHNIQUE: Brain: Multiple axial CT images of the brain were obtained without IV contrast. Cspine: Axial CT images from the skull base to the inferior aspect of T2 we obtained without intraven ous contrast. Coronal and sagittal reformatted images were also reviewed. . CT DLP: 1207 mGycm, Automated exposure control for dose reduction was used. FINDINGS: Brain: Extra-axial spaces: No abnormal extra-axial fluid collections. Ventricular system: Dilatation in proportion to cerebral atrophy. Cerebral parenchyma: Cerebral atrophy. No acute intraparenchymal hemorrhage or mass effect. The hope -white junction is well differentiated. Scattered hypoattenuating areas are seen within the white mat ter. Cerebellum: Unremarkable. Mass effect: No evidence of midline shift. Intracranial vasculature: Atherosclerotic calcifications of the intracranial vessels. Soft tissues: Normal. Calvarium/osseous structures: No depressed skull fracture. Paranasal sinuses and mastoid air cells: Clear. Visualized orbits: Orbital contents are intact. Cervical spine: Fracture: None. Osseous structures: Unremarkable Vertebral alignment: Within normal limits. Spinal canal/Neural Foramina: No evidence of significant spinal canal narrowing. No evidence for sign ificant neural foraminal stenosis. Neck soft tissues: Prevertebral soft tissues are within normal limits. Other: The airway is patent. Centrilobular and paraseptal emphysema changes in lung apices. Scattered streaky atelectasis and/or scarring noted. Atherosclerosis of the carotid bifurcations. IMPRESSION: 1. No acute intracranial process. 2. Nonspecific white matter changes, likely secondary to chronic small vessel ischemic disease. 3. No evidence of cervical spine fracture. 4. Mild multilevel degenerative disc disease. [facility], , 01/06/2024 7:33 PM
--- NOTE | 2024-01-06 19:50 | XR ---
EXAMINATION TYPE: XR knee limited LT DATE OF EXAM: 01/06/2024 7:38 PM COMPARISON: None CLINICAL INDICATION: Female, 78 years old with history of Fall from bed, struck left side; H pain TECHNIQUE: XR knee limited LT frontal and lateral views... FINDINGS: No evidence of any acute osseous pathology, soft tissue swelling, or joint effusion is no filiberto. Tricompartmental osteophyte formation involving the femoral condyles, tibial plateau and patella . Moderate joint space narrowing. Fixation hardware appears intact. IMPRESSION: 1. No acute osseous pathology. 2. Moderate tricompartmental osteoarthritic changes. [facility], , 01/06/2024 7:47 PM
--- NOTE | 2024-01-06 19:51 | XR ---
EXAMINATION TYPE: XR chest 2V DATE OF EXAM: 01/06/2024 7:38 PM COMPARISON: Chest radiographs from 02/28/2023. CLINICAL INDICATION: Female, 78 years old with history of Fall from bed; pain TECHNIQUE: XR chest 2V Frontal and lateral views of the chest. FINDINGS: Lungs/Pleura: There is flattening of the diaphragm with increased lucency of the lungs. No evidence o f pneumothorax, pleural effusion or focal consolidation. Pulmonary vascularity: Unremarkable. Heart/mediastinum: Cardiomediastinal silhouette is unremarkable. Musculoskeletal: No acute osseous pathology. IMPRESSION: 1. No acute cardiopulmonary disease process. 2. COPD changes. [facility], , 01/06/2024 7:48 PM
--- NOTE | 2024-01-06 19:52 | ED ---
Fall HPI - General Source: EMS, RN notes reviewed Mode of arrival: EMS Limitations: no limitations - History of Present Illness MD Complaint: fall Onset/Timin -: hour(s) Fall From: out of bed Fall Witnessed: no Place Fall Occurred: home Loss of Consciousness: none Prolonged Down Time?: no Symptoms Prior to Fall: none Location: head Location - Extremities: Left: Arm, Leg Severity scale (1-10): 8 (Leg pain worse) Associated Symptoms: unable to walk <Mirza Vega - Last Filed: 01/06/24 23:30> <Lorraine Park - Last Filed: 01/07/24 01:49> - General Chief Complaint: Fall Stated Complaint: Fall Time Seen by Provider: 01/06/24 18:39 - History of Present Illness Initial Comments: This is a 78-year-old female presenting via EMS from home for fall out of bed this morning. Patient states she accidentally rolled out of bed striking her carpeted floor on the left side, injuring her left leg, arm and side of head. Patient denies loss of consciousness or precipitating dizziness prior to fall. Patient states she was helped to her feet very shortly afterwards by her son and daughter in law. Patient is concerned of falling again due to increased left leg pain while ambulating and use of walker while at home. Patient states left leg pain is 8 out of 10. Also endorses left arm injury and striking her left head. Patient denies use of anticoagulants or antiplatelet medication. Denies headache, vision changes, N/V, dizziness. (Mirza Vega) - Related Data Home Medications Medication Instructions Recorded Confirmed Simvastatin [Zocor] 40 mg PO HS 02/20/15 02/21/23 Montelukast Sodium [Singulair] 10 mg PO HS 03/01/16 02/21/23 Albuterol Sulfate [Ventolin HFA] 2 puff INHALATION RT-Q4H PRN 06/20/21 02/21/23 Ipratropium/Albuterol Sulfate 1 puff INHALATION RT-QID 06/20/21 02/21/23 [Combivent Respimat Inhaler] Omeprazole 20 mg PO DAILY 06/20/21 02/21/23 Sertraline [Zoloft] 200 mg PO DAILY 06/20/21 02/21/23 Acetaminophen [Tylenol Extra 1,000 mg PO Q6H PRN 11/08/21 02/21/23 Strength] Metoprolol Succinate (ER) [Toprol 50 mg PO DAILY 02/25/22 02/21/23 XL] ALPRAZolam [Xanax] 0.5 mg PO TID PRN 02/21/23 02/21/23 Ipratropium-Albuterol Nebulize 3 ml INHALATION RT-QID PRN 02/21/23 02/21/23 [Duoneb 0.5 mg-3 mg/3 ml Soln] guaiFENesin [Mucinex] 600 mg PO Q12H PRN 02/21/23 02/21/23 Previous Rx's Medication Instructions Recorded Budesonide-Formot 160-4.5 Mcg 2 puff INHALATION RT-BID #1 inh 12/20/21 [Symbicort 160-4.5 Mcg Inhaler] Nitroglycerin Sl Tabs [Nitrostat] 0.4 mg SUBLINGUAL Q5M PRN #30 tab 12/28/21 Spironolactone [Aldactone] 25 mg PO DAILY #30 tab 12/28/21 Aspirin 81 mg PO DAILY tab 03/02/23 Isosorbide Mononitrate ER [Imdur] 30 mg PO DAILY 30 Days #30 tab 03/02/23 Levofloxacin [Levaquin] 750 mg PO DAILY 5 Days #5 tab 03/02/23 predniSONE [Deltasone] 40 mg PO DAILY 5 Days #10 tab 03/02/23 Allergies Allergy/AdvReac Type Severity Reaction Status Date / Time No Known Allergies Allergy Verified 01/06/24 18:35 Review of Systems ROS Other: All systems not noted in ROS Statement are negative. <Mirza Vega - Last Filed: 01/06/24 23:30> ROS Other: All systems not noted in ROS Statement are negative. <Lorraine Park - Last Filed: 01/07/24 01:49> ROS Statement: Those systems with pertinent positive or pertinent negative responses have been documented in the HPI. Past Medical History Past Medical History: Asthma, Chest Pain / Angina, COPD, GERD/Reflux, Hyperlipidemia, Hypertension, Pneumonia Additional Past Medical History / Comment(s): oxygen [place] @2L continuous, gallstones, pernicious anemia History of Any Multi-Drug Resistant Organisms: Other MDRO Past Surgical History: Hernia Repair, Joint Replacement, Orthopedic Surgery, Tonsillectomy Additional Past Surgical History / Comment(s): left elbow surgery, abscess in stomach area, abdominial scar tissue, tamie oophorectomy, left knee surgery, left hip replacement Past Anesthesia/Blood Transfusion Reactions: No Reported Reaction Past Psychological History: Anxiety, Depression Smoking Status: Former smoker Past Alcohol Use History: None Reported Past Drug Use History: None Reported - Past Family History Mother Family Medical History: No Reported History Additional Family Medical History / Comment(s): MS Father Family Medical History: CVA/TIA, Myocardial Infarction (RI) Additional Family Medical History / Comment(s): ETOH <GaryMirza - Last Filed: 01/06/24 23:30> General Exam Limitations: no limitations General appearance: alert, in no apparent distress Head exam: Present: atraumatic, normocephalic, normal inspection Eye exam: Present: normal appearance, PERRL, EOMI. Absent: scleral icterus, conjunctival injection, periorbital swelling ENT exam: Present: normal exam, mucous membranes moist Neck exam: Present: normal inspection. Absent: tenderness, meningismus, lymphadenopathy Respiratory exam: Present: normal lung sounds bilaterally. Absent: respiratory distress, wheezes, rales, rhonchi, stridor Cardiovascular Exam: Present: regular rate, normal rhythm, normal heart sounds. Absent: systolic murmur, diastolic murmur, rubs, gallop, clicks GI/Abdominal exam: Present: soft, normal bowel sounds. Absent: distended, tenderness, guarding, rebound, rigid Extremities exam: Present: tenderness (Positive significant tenderness across entirety of left lower leg and left upper extremity. Negative obvious crepitus, deformity, diffuse ecchymosis.), normal capillary refill, other (Positive ecchymosis at left fifth MCP joint with localized tenderness. Bilateral hand and foot neurovascular intact motor function also intact.). Absent: pedal edema, joint swelling, calf tenderness Back exam: Present: normal inspection Neurological exam: Present: alert, oriented X3, CN II-XII intact Psychiatric exam: Present: normal affect, normal mood Skin exam: Present: warm, dry, intact, normal color. Absent: rash <GaryMirza - Last Filed: 01/06/24 23:30> Course Vital Signs 11/12/1901/06/24 01/06/24 18:33 21:27 22:19 Temperature 97.7 F Pulse Rate 86 58 L 53 L Respiratory 18 18 18 Rate Blood Pressure 114/71 92/57 101/76 O2 Sat by Pulse 98 98 98 Oximetry 01/06/24 01/06/24 22:31 23:18 Temperature Pulse Rate 73 73 Respiratory 18 19 Rate Blood Pressure 102/62 O2 Sat by Pulse 98 97 Oximetry Medical Decision Making <Mirza Vega - Last Filed: 01/06/24 23:30> <EnglishLorraine - Last Filed: 01/07/24 01:49> - Medical Decision Making Was pt. sent in by a medical professional or institution (, PA, ASSET RECOVERY SPECIALIST, urgent care, hospital, or retirement...) When possible be specific @ -No Did you speak to anyone other than the patient for history (EMS, parent, family, police, friend...)? What history was obtained from this source @ -No Did you review nursing and triage notes (agree or disagree)? Why? @ -I reviewed and agree with nursing and triage notes Were old charts reviewed (outside hosp., previous admission, EMS record, old EKG, old radiological studies, urgent care reports/EKG's, retirement records)? Report findings @ -No old charts were reviewed Differential Diagnosis (chest pain, altered mental status, abdominal pain women, abdominal pain men, vaginal bleeding, weakness, fever, dyspnea, syncope, headache, dizziness, GI bleed, back pain, seizure, CVA, palpatations, mental health, musculoskeletal)? @ -Differential Weakness: Hypoglycemia, shock, sepsis, hyponatremia, anemia, infection, RI, ETOH, adverse medicine reaction, overdose, stroke, this is not meant to be an all-inclusive list. EKG interpreted by me (3pts min.). @ -Not done. X-rays interpreted by me (1pt min.). @ -Number of x-rays of the left upper extremity and left lower extremity revealed possible fracture of proximal femur but otherwise unremarkable and all other locations with no indication of dislocations CT interpreted by me (1pt min.). @ -Femoral CT shows periprosthetic avulsion fracture with displacement U/S interpreted by me (1pt. min.). @ -None done What testing was considered but not performed or refused? (CT, X-rays, U/S, labs)? Why? @ -None What meds were considered but not given or refused? Why? @ -None Did you discuss the management of the patient with other professionals (professionals i.e. , PA, ASSET RECOVERY SPECIALIST, lab, RT, psych nurse, sr. social media & mobile manager, dental hygiene professor, teacher, chief science officer, business case analyst)? Give summary @ -No Was smoking cessation discussed for >3mins.? @ -No Was critical care preformed (if so, how long)? @ -No Were there social determinants of health that impacted care today? How? (Homelessness, low income, unemployed, alcoholism, drug addiction, transportation, low edu. Level, literacy, decrease access to med. care, correction, rehab)? @ -No Was there de-escalation of care discussed even if they declined (Discuss DNR or withdrawal of care, Hospice)? DNR status @ -No What co-morbidities impacted this encounter? (DM, HTN, Smoking, COPD, CAD, Cancer, CVA, ARF, Chemo, Hep., AIDS, mental health diagnosis, sleep apnea, morbid obesity)? @ -None Was patient admitted / discharged? Hospital course, mention meds given and route, prescriptions, significant lab abnormalities, going to OR and other pertinent info. @ -Admitted. Extremity x-rays revealed possible proximal femur fracture. CT is scan confirmed the diagnosis. Patient underwent left THR [place] [address] Sauceda. Still awaiting callback. Consult placed for Dr. Sauceda for ongoing care. Patient given Toradol IV for pain upon request. Signed to attending pending acceptance to admission Undiagnosed new problem with uncertain prognosis? @ -No Drug Therapy requiring intensive monitoring for toxicity (Heparin, Nitro, Insulin, Cardizem)? @ -No Were any procedures done? @ -No Diagnosis/symptom? @ -Periprosthetic femur fracture Acute, or Chronic, or Acute on Chronic? @ -Acute Uncomplicated (without systemic symptoms) or Complicated (systemic symptoms)? @ -Uncomplicated Side effects of treatment? @ -No Exacerbation, Progression, or Severe Exacerbation? @ -No Poses a threat to life or bodily function? How? (Chest pain, [place], RI, pneumonia, PE, COPD, DKA, ARF, appy, cholecystitis, CVA, Diverticulitis, Homicidal, Suicidal, threat to staff... and all critical care pts) @ -No (Mirza Vega) Sign out received from off going PA pending admission to orthopedics. On assessment patient well appearing, in NAD, pain controlled. LLE neurovasculary intact. Discussed case with Dr. Spencer, kindly accepts pt for admission. Likely nonoperative. Requests medicine consult. Pt admitted in stable condition. (Lorraine Park) Disposition Is patient prescribed a controlled substance at d/c from ED?: No <Mirza Vega - Last Filed: 01/06/24 23:30> <Lorraine Park - Last Filed: 01/07/24 01:49> Clinical Impression: Fall, Femur fracture, left, Fall from bed Disposition: ADMITTED IP TO THIS HOSP Condition: Good
--- NOTE | 2024-01-06 19:53 | XR ---
EXAMINATION TYPE: XR tibia fibula LT DATE OF EXAM: 01/06/2024 7:38 PM COMPARISON: None CLINICAL INDICATION: Female, 78 years old with history of Fall from bed, struck left side; [facility] pain TECHNIQUE: XR tibia fibula LT; examined in AP and lateral projections. FINDINGS: No evidence of any acute osseous pathology, joint dislocation, or soft tissue swelling is n oted. Hardware intact with evidence of prior hardware removal. No evidence of fracture. Degeneration changes of the knee and ankle joints.. IMPRESSION: No evidence of acute fracture. [facility], , 01/06/2024 7:50 PM
--- NOTE | 2024-01-06 19:55 | XR ---
EXAMINATION TYPE: XR femur LT, XR Hip Bilateral Complete DATE OF EXAM: 01/06/2024 7:38 PM COMPARISON: 07/25/2022 CLINICAL INDICATION: Female, 78 years old with history of Fall from bed, struck left side; H pain TECHNIQUE: XR femur LT, XR Hip Bilateral Complete examined in Frontal and lateral projections. FINDINGS/IMPRESSION: 1. New cortex irregularity involving the proximal left femur possibly representing periprosthetic fr acture. Further evaluation with CT recommended. The margins are less sharp than would be expected for acute fracture however is not excluded. 2. The right hip is intact. 3. Mild right hepatic steatosis. [facility], , 01/06/2024 7:53 PM
--- NOTE | 2024-01-06 21:48 | CT ---
EXAMINATION TYPE: CT femur LT wo con DATE OF EXAM: 01/06/2024 9:36 PM COMPARISON: . Extremity radiograph same day. CLINICAL INDICATION: Female, 78 years old with history of Possible left proximal femur fracture on x- ray; [facility], left proximal femur fx TECHNIQUE: Axial images were obtained of the CT femur LT wo con, Additional coronal and sagittal refo rmatted images and soft tissue and bone window were obtained for review.. Contrast used: mL of , (None if empty) Oral contrast used: (None if empty) CT DLP: 644.5 mGycm, Automated exposure control for dose reduction was used. FINDINGS: There is left proximal femur periprosthetic fracture with displacement of the greater troch anter up to 10 mm.. Remainder of the pelvis and other osseous structures appear intact. There is soft tissue edema around the left proximal hip. Fibroid degenerating calcifications. Scattered colonic diverticula. IMPRESSION: Left proximal femur periprosthetic fracture is confirmed with displacement. [facility], , 01/06/2024 9:46 PM
[2024-01-06] MEDS: KETOROLAC 15 MG/ML 1 ML VIAL IVP STA (23:14)
[2024-01-07] MEDS ORDERED: NALOXONE 0.4 MG/ML 1 ML VIAL IV PRN (00:25)
[2024-01-07] MEDS ORDERED: ACETAMINOPHEN TAB 325 MG TAB PO PRN (00:25)
[2024-01-07] MEDS ORDERED: ALBUTEROL NEBULIZED 2.5 MG/3 ML INHALATION PRN (00:33)
[2024-01-07] MEDS ORDERED: IPRATROPIUM-ALBUTEROL 3 ML NEB INHALATION PRN (00:33)
[2024-01-07] MEDS: MORPHINE SULFATE 2 MG/ML SYRINGE IV PRN (06:20)
[2024-01-07] MEDS ORDERED: NON FORMULARY DRUG (Ipratropium/Albuterol Sulfate [Combivent Respimat Inhaler] 1 INHALER E INHALATION SCH (08:00)
[2024-01-07] MEDS: SPIRONOLACTONE 25 MG TAB PO SCH (08:08)
[2024-01-07] MEDS: ASPIRIN 81 MG PO SCH (08:08)
[2024-01-07] MEDS: PANTOPRAZOLE 40 MG TABLET PO SCH (08:08)
[2024-01-07] MEDS: SERTRALINE 100 MG TAB PO SCH (08:09)
[2024-01-07] MEDS: METOPROLOL SUCCINATE (ER) 50 MG TAB.ER.24H PO SCH (08:09)
[2024-01-07] MEDS: SYMBICORT 160-4.5 MCG INHALER INHALATION SCH (08:37)
[2024-01-07] MEDS ORDERED: guaiFENesin 600 MG TABLET.ER PO PRN (09:00)
[2024-01-07] MEDS ORDERED: ISOSORBIDE MONONITRATE ER 30 MG TAB.ER.24H PO SCH (09:00)
--- NOTE | 2024-01-07 11:22 | P.CONS ---
History of Present Illness - Reason for Consult Consult date: 01/07/24 - History of Present Illness History of present illness: 78-year-old female with past medical history significant for COPD on 2 L oxygen at baseline, hypertension, hyperlipidemia, history of NV and cardiomyopathy who presented to ER after a fall while getting out of her bed. Patient stated that she accidentally rolled out of the bed striking on the carpeted floor on the left side injuring her left leg arm and side of the head. Patient denied any loss of consciousness or head injury. Patient was helped shortly afterwards by her son and [id number], patient was concerned about falling again and also continued to have increasing left leg pain while ambulating and with the use of walker at home, left lower extremity pain was 8 x 10. Patient denied being on any anticoagulants or antiplatelets. Patient denied any fever, chills, sore throat, productive cough, shortness of breath, nausea vomiting diarrhea constipation abdominal pain dysuria urgency frequency weakness or numbness of extremities. In the ED patient was afebrile, heart rate 86, respiratory rate 18, blood pressure 114/77, saturating 98% on [address] left hip showed left proximal femur periprosthetic fracture with displacement. CT head and CT cervical spine was negative for any acute process. X-ray left upper extremity negative for any acute process, showed osteoarthritis. REVIEW OF SYSTEMS: CONSTITUTIONAL: No fever, no malaise, no fatigue. HEENT: No recent visual problems or hearing problems. Denied any sore throat. CARDIOVASCULAR: No chest pain, orthopnea, PND, no palpitations, no syncope. PULMONARY: No shortness of breath, no cough, no hemoptysis. GASTROINTESTINAL: No diarrhea, no nausea, no vomiting, no abdominal pain. NEUROLOGICAL: No headaches, no weakness, no numbness. HEMATOLOGICAL: Denies any bleeding or petechiae. GENITOURINARY: Denies any burning micturition, frequency, or urgency. MUSCULOSKELETAL/RHEUMATOLOGICAL: Left hip pain. ENDOCRINE: Denies any polyuria or polydipsia. The rest of the 14-point review of systems is negative. PHYSICAL EXAMINATION: GENERAL: The patient is A&O x3, NAD HEENT: EOMI, Sclerae anicteric, Moist Mucous membranes Neck: Supple, Non tender, No JVD PULMONARY: Equal breath souds B/L, No wheezing, No crackles. CARDIOVASCULAR: S1, S2 present. No murmurs, rubs, or gallops. ABDOMEN: Soft, nontender, nondistended, normoactive bowel sounds. No guarding or rebound tenderness. MUSCULOSKELETAL: No edema, No cyanosis. No clubbing. Normal ROM. Intact peripheral pulses. EXTREMITIES: No cyanosis, clubbing, or pedal edema. NEUROLOGICAL: CN 2-12 grossly intact. No FND Assessment and plan: Left femur periprosthetic fracture with displacement: Fall: Presented after a fall from bed CT left hip showed left proximal femur periprosthetic fracture with displac ement. CT head and CT cervical spine negative for acute process. Pain management, perioperative antibiotics, DVT prophylaxis per orthopedics PT/OT consult Bowel/bladder protocol Incentive spirometry Check labs. Cardiology consult for cardiac clearance Okay to proceed with surgerymild to moderate perioperative risk if cleared by cardiology History of NV: History of cardiomyopathy: Patient currently asymptomatic, denied any chest pain or shortness of breath Echocardiogram in 2021 showed ejection fraction 35 to 40%, later on recovered EF 55 to 60% on echocardiogram January 2023 Cardiology consulted. COPD: Stable Not in acute exacerbation Continue inhalersDuoNeb, Symbicort, Mucinex, incentive spirometry. Hypertension: Stable Continue home meds lisinopril, Aldactone. Depression: Zoloft History of pernicious anemia: Pulmonary nodule: History of COVID: DVT prophylaxis Per Orthopedics Monitor vital signs and labs Labs and medication were reviewed. Continue same treatment. Further recommendations as per clinical course of the patient Dictation was produced using [employer] dictation software. please excuse any grammatical, word or spelling errors. Past Medical History Past Medical History: Asthma, Chest Pain / Angina, COPD, GERD/Reflux, Hyperlipidemia, Hypertension, Pneumonia Additional Past Medical History / Comment(s): oxygen NC @2L continuous, gallstones, pernicious anemia History of Any Multi-Drug Resistant Organisms: Other MDRO Past Surgical History: Hernia Repair, Joint Replacement, Orthopedic Surgery, Tonsillectomy Additional Past Surgical History / Comment(s): left elbow surgery, abscess in stomach area, abdominial scar tissue, tamie oophorectomy, left knee surgery, left hip replacement Past Anesthesia/Blood Transfusion Reactions: No Reported Reaction Past Psychological History: Anxiety, Depression Smoking Status: Former smoker Past Alcohol Use History: None Reported Additional Past Alcohol Use History / Comment(s): quit smoking 2001, smoked since age 18, 2 PPD Past Drug Use History: None Reported - Past Family History Mother Family Medical History: No Reported History Additional Family Medical History / Comment(s): MS Father Family Medical History: CVA/TIA, Myocardial Infarction (NV) Additional Family Medical History / Comment(s): ETOH Medications and Allergies Home Medications Medication Instructions Recorded Confirmed Type Simvastatin [Zocor] 40 mg PO HS 02/20/15 01/07/24 History Montelukast Sodium [Singulair] 10 mg PO HS 03/01/16 01/07/24 History Albuterol Sulfate [Ventolin HFA] 2 puff INHALATION RT-Q4H PRN 06/20/21 01/07/24 History Ipratropium/Albuterol Sulfate 1 puff INHALATION RT-QID 06/20/21 01/07/24 History [Combivent Respimat Inhaler] Omeprazole 20 mg PO DAILY 06/20/21 01/07/24 History Sertraline [Zoloft] 200 mg PO DAILY 06/20/21 01/07/24 History Acetaminophen [Tylenol Extra 1,000 mg PO Q6H PRN 11/08/21 01/07/24 History Strength] Spironolactone [Aldactone] 25 mg PO DAILY #30 tab 12/28/21 01/07/24 Rx Metoprolol Succinate (ER) [Toprol 50 mg PO DAILY 02/25/22 01/07/24 History XL] ALPRAZolam [Xanax] 0.5 mg PO TID PRN 02/21/23 01/07/24 History Ipratropium-Albuterol Nebulize 3 ml INHALATION RT-QID PRN 02/21/23 01/07/24 History [Duoneb 0.5 mg-3 mg/3 ml Soln] Aspirin 81 mg PO DAILY tab 03/02/23 01/07/24 Rx Ferrous Sulfate [Feosol] 325 mg PO DAILY 01/07/24 01/07/24 History Melatonin 10 mg PO HS 01/07/24 01/07/24 History Mometasone/Formoterol [Dulera 200 2 puff INHALATION RT-BID 01/07/24 01/07/24 History Mcg-5 Mcg Inhaler] lisinopriL [Zestril] 2.5 mg PO DAILY 01/07/24 01/07/24 History Allergies Allergy/AdvReac Type Severity Reaction Status Date / Time No Known Allergies Allergy Verified 01/07/24 07:25 Physical Exam Vitals: Vital Signs Temp Pulse Resp BP Pulse Ox 01/07/24 08:39 97 01/07/24 08:01 98.6 F 75 16 107/69 98 01/07/24 06:15 97.5 F L 73 17 105/63 98 01/07/24 02:00 70 21 99 01/06/24 23:18 73 19 102/62 97 01/06/24 22:31 73 18 98 01/06/24 22:19 53 L 18 101/76 98 01/06/24 21:27 58 L 18 92/57 98 01/06/24 18:33 97.7 F 86 18 114/71 98 Intake and Output 01/06/24 01/07/24 01/07/24 22:59 06:59 14:59 Other: Weight 46.72 kg 46.72 kg
--- NOTE | 2024-01-07 13:35 | P.HPOR ---
History of Present Illness H&P Date: 01/07/24 Chief Complaint: Left hip pain. This is a 78-year-old female who sustained injury to her left hip when she fell out of bed on 01/06/2024. She landed directly on her left hip. She has history of femoral neck fracture in the past and had a hemiarthroplasty approximately [address] Sauceda. The patient has moderate to severe COPD and is on home O2. She complains of pain about her left hand as well since the fall. Past Medical History Past Medical History: Asthma, Chest Pain / Angina, COPD, GERD/Reflux, Hyperlipidemia, Hypertension, Pneumonia Additional Past Medical History / Comment(s): oxygen NC @2L continuous, gallstones, pernicious anemia History of Any Multi-Drug Resistant Organisms: Other MDRO Past Surgical History: Hernia Repair, Joint Replacement, Orthopedic Surgery, Tonsillectomy Additional Past Surgical History / Comment(s): left elbow surgery, abscess in stomach area, abdominial scar tissue, taime oophorectomy, left knee surgery, left hip replacement Past Anesthesia/Blood Transfusion Reactions: No Reported Reaction Past Psychological History: Anxiety, Depression Smoking Status: Former smoker Past Alcohol Use History: None Reported Additional Past Alcohol Use History / Comment(s): quit smoking 2001, smoked since age 18, 2 PPD Past Drug Use History: None Reported - Past Family History Mother Family Medical History: No Reported History Additional Family Medical History / Comment(s): MS Father Family Medical History: CVA/TIA, Myocardial Infarction (NV) Additional Family Medical History / Comment(s): ETOH Medications and Allergies Home Medications Medication Instructions Recorded Confirmed Type Simvastatin [Zocor] 40 mg PO HS 02/20/15 01/07/24 History Montelukast Sodium [Singulair] 10 mg PO HS 03/01/16 01/07/24 History Albuterol Sulfate [Ventolin HFA] 2 puff INHALATION RT-Q4H PRN 06/20/21 01/07/24 History Ipratropium/Albuterol Sulfate 1 puff INHALATION RT-QID 06/20/21 01/07/24 History [Combivent Respimat Inhaler] Omeprazole 20 mg PO DAILY 06/20/21 01/07/24 History Sertraline [Zoloft] 200 mg PO DAILY 06/20/21 01/07/24 History Acetaminophen [Tylenol Extra 1,000 mg PO Q6H PRN 11/08/21 01/07/24 History Strength] Spironolactone [Aldactone] 25 mg PO DAILY #30 tab 12/28/21 01/07/24 Rx Metoprolol Succinate (ER) [Toprol 50 mg PO DAILY 02/25/22 01/07/24 History XL] ALPRAZolam [Xanax] 0.5 mg PO TID PRN 02/21/23 01/07/24 History Ipratropium-Albuterol Nebulize 3 ml INHALATION RT-QID PRN 02/21/23 01/07/24 History [Duoneb 0.5 mg-3 mg/3 ml Soln] Aspirin 81 mg PO DAILY tab 03/02/23 01/07/24 Rx Ferrous Sulfate [Feosol] 325 mg PO DAILY 01/07/24 01/07/24 History Melatonin 10 mg PO HS 01/07/24 01/07/24 History Mometasone/Formoterol [Dulera 200 2 puff INHALATION RT-BID 01/07/24 01/07/24 History Mcg-5 Mcg Inhaler] lisinopriL [Zestril] 2.5 mg PO DAILY 01/07/24 01/07/24 History Allergies Allergy/AdvReac Type Severity Reaction Status Date / Time No Known Allergies Allergy Verified 01/07/24 07:25 Physical Examination This is a pleasant 78-year-old female in no acute distress. She is alert and oriented 3. Exam of the head and neck reveal no obvious deformity. She has fairly good cervical spine motion without difficulty or pain. She is nontender over the cervical spinous processes or paraspinal musculature. Exam of the upper extremities reveals no ecchymosis and swelling to the ulnar aspect of the hand and into the little finger. She is able to make a full fist. She is nontender with palpation over the metacarpal or fifth finger. Neurovascular status Extremities is intact. Exam a large areas reveals no obvious deformity. She is able to raise each leg off the bed independently with some pain on the left. She has full foot and ankle motion bilaterally. There is tenderness to palpation about the left greater trochanter. Neurovascular status to the lower extremities is intact. Results X-ray and CT of the pelvis and left hip reveals a minimally displaced greater trochanteric fracture which extends slightly down into the metaphysis. Overall fracture alignment is satisfactory. X-ray of the left hand reveals a cortical irregularity at the base of the proximal phalanx of the little finger. I suspect a minimally displaced fracture. No other bony abnormality is noted. X-rays of the humerus and shoulder show no acute fracture. X-rays of the knee and tibia reveal hardware in position with a healed fracture to the proximal tibia. No new fractures noted. Assessment and Plan (1) Periprosthetic fracture around internal prosthetic hip joint Current Visit: Yes Status: Acute Code(s): M97.8XXA - PERIPROSTH FRACTURE AROUND OTHER INTERNAL PROSTH JOINT, INIT; Z96.649 - PRESENCE OF UNSPECIFIED ARTIFICIAL HIP JOINT SNOMED Code(s): 032474954 (2) Fall Current Visit: Yes Status: Acute Code(s): W19.XXXA - UNSPECIFIED FALL, INITIAL ENCOUNTER SNOMED Code(s): 8149394 (3) Fall from bed Current Visit: Yes Status: Acute Code(s): W06.XXXA - FALL FROM BED, INITIAL ENCOUNTER SNOMED Code(s): 18604070 (4) Femur fracture, left Current Visit: Yes Status: Acute Code(s): S72.92XA - UNSP FRACTURE OF LEFT FEMUR, INIT ENCNTR FOR CLOSED FRACTURE SNOMED Code(s): 05007069 Plan: The clinical and radiographic findings are discussed with the patient. Treatment options are discussed including surgical versus nonsurgical. The patient is a poor surgical candidate secondary to her health issues. It is recommended that we try conservative, nonoperative treatment at this time. She will be toe-touch weightbearing with a walker. His recommended she be evaluated by PT and OT for possible rehabilitation placement. We will take frequent follow-up x-rays and if the fracture appears to be having some displacement, we will revisit the surgical options.
--- NOTE | 2024-01-07 14:11 | P.CRDCN ---
History of Present Illness Consult date: 01/07/24 Reason for Consult (text): Cardiac clearance for hip surgery, history of PA, cardiomyopathy History of present illness: This is a 78-year-old female patient previously seen in the office by Dr. Allen and 2020 with past medical history of multifocal atrial tachycardia, COPD, hypertension, dyslipidemia. We have been asked to evaluate the patient for cardiac clearance for hip surgery with history of PA, cardiomyopathy. Patient states that she is not undergoing any surgery as she is high risk. She is still on home O2 at 2 L nasal cannula [id number]. She denies any recent stent placement. Regarding fall at home. She denies having any loss consciousness, no palpitations no lightheadedness or dizziness no syncopal episodes. She states her heart does occasionally race when she is upset. She also has occasionally dizzy when she stands up and does this slowly. She denies having any chest pain at this time but she has had it in the past on the left side last year. Shortness of breath is gradually worsening over time. Blood pressure 107/69, heart rate 75, pulse ox 97% on 2 L nasal cannula. Chest x-ray: No acute cardiopulmonary disease process. COPD Home cardiac medications: Aspirin 81 mg daily, lisinopril 2.5 mg daily, Toprol XL 50 mg daily, simvastatin 40 mg at bedtime, spironolactone 25 mg daily. Review Of Systems: At the time of my exam: CONSTITUTIONAL: Denies fever or chills. HEENT: Denies blurred vision, vision changes, or eye pain. Denies hemoptysis CARDIOVASCULAR: Denies chest pain. Denies orthopnea. Denies PND. Denies palpitations RESPIRATORY: Denies shortness of breath. GASTROINTESTINAL: Denies abdominal pain. Denies nausea or vomiting. HEMATOLOGIC: Denies bleeding disorders. GENITOURINARY: Denies any blood in urine. SKIN: Denies puritis. Denies rash. Physical examination: Gen: This is a thin cachectic appearing 78-year-old female in no acute respiratory distress VS: reviewed HEENT: Head is atraumatic, normocephalic. Pupils equal, round. Sclerae is anicteric. NECK: Supple. No JVD. LUNGS: Clear to auscultation. No wheezes or rhonchi. No intercostal retractions. HEART: Regular rate and rhythm. No murmur. ABDOMEN: Soft No tenderness. EXTREMITIES: No pedal edema. No calf tenderness. NEUROLOGICAL: Patient is awake, alert and oriented x3. Assessment: Periprosthetic fracture. No plan for surgical intervention. Fall Multifocal atrial tachycardia COPD Chronic hypoxic respiratory failure on home O2 at 2 L Hypertension Dyslipidemia Plan: Resume patient's home cardiac medications No further cardiac workup at this time Patient may follow-up in the office with Dr. Allen Cardiology will sign off this case and follow on an as-needed basis. Please reconsult for any new concerns. Patient may follow-up in the office in one to 2 weeks. Thank you kindly for this consultation. Nurse practitioner note has been reviewed, I agree with documented findings and plan of care. Patient was seen and examined. Past Medical History Past Medical History: Asthma, Chest Pain / Angina, COPD, GERD/Reflux, Hyperlipidemia, Hypertension, Pneumonia Additional Past Medical History / Comment(s): oxygen NC @2L continuous, gallstones, pernicious anemia History of Any Multi-Drug Resistant Organisms: Other MDRO Past Surgical History: Hernia Repair, Joint Replacement, Orthopedic Surgery, Tonsillectomy Additional Past Surgical History / Comment(s): left elbow surgery, abscess in stomach area, abdominial scar tissue, tamie oophorectomy, left knee surgery, left hip replacement Past Anesthesia/Blood Transfusion Reactions: No Reported Reaction Past Psychological History: Anxiety, Depression Smoking Status: Former smoker Past Alcohol Use History: None Reported Additional Past Alcohol Use History / Comment(s): quit smoking 2001, smoked since age 18, 2 PPD Past Drug Use History: None Reported - Past Family History Mother Family Medical History: No Reported History Additional Family Medical History / Comment(s): MS Father Family Medical History: CVA/TIA, Myocardial Infarction ([place]) Additional Family Medical History / Comment(s): ETOH Medications and Allergies Home Medications Medication Instructions Recorded Confirmed Type Simvastatin [Zocor] 40 mg PO HS 02/20/15 01/07/24 History Montelukast Sodium [Singulair] 10 mg PO HS 03/01/16 01/07/24 History Albuterol Sulfate [Ventolin HFA] 2 puff INHALATION RT-Q4H PRN 06/20/21 01/07/24 History Ipratropium/Albuterol Sulfate 1 puff INHALATION RT-QID 06/20/21 01/07/24 History [Combivent Respimat Inhaler] Omeprazole 20 mg PO DAILY 06/20/21 01/07/24 History Sertraline [Zoloft] 200 mg PO DAILY 06/20/21 01/07/24 History Acetaminophen [Tylenol Extra 1,000 mg PO Q6H PRN 11/08/21 01/07/24 History Strength] Spironolactone [Aldactone] 25 mg PO DAILY #30 tab 12/28/21 01/07/24 Rx Metoprolol Succinate (ER) [Toprol 50 mg PO DAILY 02/25/22 01/07/24 History XL] ALPRAZolam [Xanax] 0.5 mg PO TID PRN 02/21/23 01/07/24 History Ipratropium-Albuterol Nebulize 3 ml INHALATION RT-QID PRN 02/21/23 01/07/24 History [Duoneb 0.5 mg-3 mg/3 ml Soln] Aspirin 81 mg PO DAILY tab 03/02/23 01/07/24 Rx Ferrous Sulfate [Feosol] 325 mg PO DAILY 01/07/24 01/07/24 History Melatonin 10 mg PO HS 01/07/24 01/07/24 History Mometasone/Formoterol [Dulera 200 2 puff INHALATION RT-BID 01/07/24 01/07/24 History Mcg-5 Mcg Inhaler] lisinopriL [Zestril] 2.5 mg PO DAILY 01/07/24 01/07/24 History Allergies Allergy/AdvReac Type Severity Reaction Status Date / Time No Known Allergies Allergy Verified 01/07/24 07:25 Physical Exam Vitals: Vital Signs Temp Pulse Resp BP Pulse Ox 01/07/24 08:39 97 01/07/24 08:01 98.6 F 75 16 107/69 98 01/07/24 06:15 97.5 F L 73 17 105/63 98 01/07/24 02:00 70 21 99 01/06/24 23:18 73 19 102/62 97 01/06/24 22:31 73 18 98 01/06/24 22:19 53 L 18 101/76 98 01/06/24 21:27 58 L 18 92/57 98 01/06/24 18:33 97.7 F 86 18 114/71 98 Intake and Output 01/06/24 01/07/24 01/07/24 22:59 06:59 14:59 Other: Weight 46.72 kg 46.72 kg Results Current Medications Generic Name Dose Route Start Last Admin Trade Name Freq PRN Reason Stop Dose Admin Acetaminophen 650 mg 01/07/24 00:25 Acetaminophen Tab 325 Mg Tab PO Q6HR PRN Mild Pain or Fever > 100.5 Hydrocodone Bitart/Acetaminophen 1 each 01/07/24 00:25 Hydrocodone/Apap 5-325mg 1 Each Tab PO Q6HR PRN Moderate Pain (Scale 4 to 6) Albuterol Sulfate 2.5 mg 01/07/24 00:33 Albuterol Nebulized 2.5 Mg/3 Ml INHALATION RT-Q4H PRN Shortness Of Breath Albuterol/Ipratropium 3 ml 01/07/24 00:33 Ipratropium-Albuterol 3 Ml Neb INHALATION RT-QID PRN Shortness Of Breath Alprazolam 0.5 mg 01/07/24 00:33 Alprazolam 0.5 Mg Tab PO TID PRN Anxiety Aspirin 81 mg 01/07/24 09:00 01/07/24 08:08 Aspirin 81 Mg PO 81 mg DAILY ROMIE Administration Atorvastatin Calcium 20 mg 01/07/24 21:00 Atorvastatin 20 Mg Tab PO HS ROMIE Budesonide/Formoterol Fumarate 2 puff 01/07/24 08:00 01/07/24 08:37 Symbicort 160-4.5 Mcg Inhaler INHALATION 2 puff RT-BID ROMIE Administration Guaifenesin 600 mg 01/07/24 09:00 Guaifenesin 600 Mg Tablet.Er PO Q12H PRN Congestion Metoprolol Succinate 50 mg 01/07/24 09:00 01/07/24 08:09 Metoprolol Succinate (Er) 50 Mg Tab.Er.24h PO 50 mg DAILY ROMIE Administration Montelukast Sodium 10 mg 01/07/24 21:00 Montelukast 10 Mg Tab PO HS ROMIE Morphine Sulfate 2 mg 01/07/24 00:25 01/07/24 11:12 Morphine Sulfate 2 Mg/Ml Syringe IV 2 mg Q4HR PRN Administration Severe Pain (Scale 7 to 10) Naloxone HCl 0.2 mg 01/07/24 00:25 Naloxone 0.4 Mg/Ml 1 Ml Vial IV Q2M PRN Opioid Reversal Pantoprazole Sodium 40 mg 01/07/24 09:00 01/07/24 08:08 Pantoprazole 40 Mg Tablet PO 40 mg DAILY ROMIE Administration Sertraline HCl 200 mg 01/07/24 09:00 01/07/24 08:09 Sertraline 100 Mg Tab PO 200 mg DAILY ROMIE Administration Spironolactone 25 mg 01/07/24 09:00 01/07/24 08:08 Spironolactone 25 Mg Tab PO 25 mg DAILY ROMIE Administration Intake and Output 01/06/24 01/07/24 01/07/24 22:59 06:59 14:59 Other: Weight 46.72 kg 46.72 kg Patient Weight 01/08/24 06:59 Weight 46.72 kg
[2024-01-07] MEDS: ALPRAZolam 0.5 MG TAB PO PRN (15:49)
[2024-01-07 16:04] LABS: Anisocytosis Moderate; Basophils % (A) 0 %; Eosinophils # (A) 0.4 k/uL (0-0.7); Eosinophils % (A) 4 %; HCT 26.7 % (34.0-46.0); HGB 7.7 gm/dL (11.4-16.0); Hypochromasia Marked; Lymphocytes # (A) 1.4 k/uL (1.0-4.8); Lymphocytes % (A) 14 %; MCH 21.5 pg (25.0-35.0); MCV 74.4 fL (80.0-100.0); Mean Platelet Volume 6.5; Microcytosis Moderate; Monocytes # (A) 0.5 k/uL (0-1.0); Monocytes % (A) 6 %; Neutrophils # (A) 7.3 k/uL (1.3-7.7); Neutrophils % (A) 75 %; Platelet Count 508 k/uL (150-450); RBC 3.59 m/uL (3.80-5.40); RDW 20.5 % (11.5-15.5); WBC 9.7 k/uL (3.8-10.6)
[2024-01-07 16:17] LABS: African American GFR (CKD) >90 (>60 ml/min/1.73 sqM); Anion Gap 4 mmol/L; Blood Urea Nitrogen 18 mg/dL (7-17); Calcium 8.5 mg/dL (8.4-10.2); Carbon Dioxide 26 mmol/L (22-30); Chloride 102 mmol/L (98-107); Glucose 86 mg/dL (74-99); Non-African American GFR(CKD) >90 (>60 ml/min/1.73 sqM); Potassium 4.4 mmol/L (3.5-5.1); Sodium 132 mmol/L (137-145)
[2024-01-07] MEDS: ONDANSETRON 4 MG/2 ML VIAL IVP PRN (16:59)
[2024-01-07] MEDS: HYDROcodone/APAP 5-325MG 1 EACH TAB PO PRN (18:56)
[2024-01-07] MEDS: ATORVASTATIN 20 MG TAB PO SCH (20:53)
[2024-01-07] MEDS: MONTELUKAST 10 MG TAB PO SCH (20:53)
[2024-01-07] MEDS: MELATONIN 5 MG TABLET PO SCH (20:53)
[2024-01-08] MEDS: FERROUS SULFATE 325 MG TAB PO SCH (08:25)
[2024-01-08] MEDS ORDERED: SENNOSIDES 8.6 MG TAB PO PRN (10:36)
--- NOTE | 2024-01-08 13:59 | P.PN ---
Subjective Progress Note Date: 01/08/24 This is a 78-year-old female who is being treated nonoperatively for nondisplaced periprosthetic fracture of her left hip. Patient is seen and evaluated at bedside today. Patient states that her pain is well-controlled and she was able to sit at bedside with physical therapy today. Patient denies any new complaints today. Objective - Vital Signs Vital signs: Vital Signs Temp 99.0 F 01/08/24 08:00 Pulse 83 01/08/24 08:00 Resp 16 01/08/24 08:00 BP 106/68 01/08/24 08:00 Pulse Ox 97 01/08/24 08:00 FiO2 Intake & Output 01/07/24 01/08/24 01/08/24 18:59 06:59 18:59 Intake Total 20 Output Total 100 Balance 20 -100 Weight 46.72 kg Intake: Oral 20 Output: Urine 100 Other: Voiding Method Diaper Diaper External Catheter External Catheter - Exam On exam patient is resting comfortably in bed in no acute distress. Patient is alert and oriented 3. Left hip: Skin is intact. Minimal swelling. Patient has full range of motion of the left foot and ankle. Calf is soft and nontender to palpation. Sensation intact. Left lower extremity is warm and well-perfused. Neurovascular status and circulatory status are intact. - Labs CBC & Chem 7: 01/07/24 15:25 01/07/24 15:25 Labs: Abnormal Lab Results - Last 24 Hours (Table) 01/07/24 01/07/24 Range/Units 15:25 15:25 RBC 3.59 L (3.80-5.40) m/uL Hgb 7.7 L (11.4-16.0) gm/dL Hct 26.7 L (34.0-46.0) % MCV 74.4 L (80.0-100.0) fL MCH 21.5 L (25.0-35.0) pg MCHC 29.0 L (31.0-37.0) g/dL RDW 20.5 H (11.5-15.5) % Plt Count 508 H (150-450) k/uL Sodium 132 L (137-145) mmol/L BUN 18 H (7-17) mg/dL Creatinine 0.48 L (0.52-1.04) mg/dL Assessment and Plan (1) Periprosthetic fracture around internal prosthetic hip joint Current Visit: Yes Status: Acute Code(s): M97.8XXA - PERIPROSTH FRACTURE AROUND OTHER INTERNAL PROSTH JOINT, INIT; Z96.649 - PRESENCE OF UNSPECIFIED ARTIFICIAL HIP JOINT SNOMED Code(s): 113719723 Plan: 1. Continue pain management and physical therapy. 2. Patient is to be toe-touch to the left lower extremity. 3. Appreciate input from internal medicine and cardiology. 4. Patient is awaiting rehab placement.
--- NOTE | 2024-01-08 14:33 | P.PN ---
Subjective Progress Note Date: 01/08/24 Interval History: 78-year-old female with past medical history significant for COPD on 2 L oxygen at baseline, hypertension, hyperlipidemia, history of PR and cardiomyopathy who presented to ER after a fall while getting out of her bed. Patient stated that she accidentally rolled out of the bed striking on the carpeted floor on the left side injuring her left leg arm and side of the head. Patient denied any loss of consciousness or head injury. Patient was helped shortly afterwards by her son and [id number], patient was concerned about falling again and also continued to have increasing left leg pain while ambulating and with the use of walker at home, left lower extremity pain was 8 x 10. Patient denied being on any anticoagulants or antiplatelets. Patient denied any fever, chills, sore throat, productive cough, shortness of breath, nausea vomiting diarrhea constipation abdominal pain dysuria urgency frequency weakness or numbness of extremities. In the ED patient was afebrile, heart rate 86, respiratory rate 18, blood pressure 114/77, saturating 98% on [address] left hip showed left proximal femur periprosthetic fracture with displacement. CT head and CT cervical spine was negative for any acute process. X-ray left upper extremity negative for any acute process, showed osteoart hritis. 01/08/2024 Patient is febrile, heart rate 83, respiratory rate 16, blood pressure 106/68, s aturating 97% on 2 L. No new labs from today. Per orthopedic poor surgical candidate, recommend conservative management, no further ischemic workup per cardiology, outpatient follow-up. PT/OT consulted. Pain is controlled. Assessment and plan: Left femur periprosthetic fracture with displacement: Fall: Presented after a fall from bed CT left hip showed left proximal femur periprosthetic fracture with displacement. CT head and CT cervical spine negative for acute process. Pain management, perioperative antibiotics, DVT prophylaxis per orthopedics PT/OT consult Bowel/bladder protocol Incentive spirometry Check labs. Cardiology consult for cardiac clearance Per orthopedicpoor surgical candidate, recommended conservative management. History of PR: History of cardiomyopathy: Patient currently asymptomatic, denied any chest pain or shortness of breath Echocardiogram in 2021 showed ejection fraction 35 to 40%, later on recovered EF 55 to 60% on echocardiogram January 2023 Cardiology consulted--recommended outpatient follow-up, no further ischemic workup. COPD: Stable Not in acute exacerbation Continue inhalersDuoNeb, Symbicort, Mucinex, incentive spirometry. Hypertension: Stable Continue home meds lisinopril, Aldactone. Depression: Zoloft History of pernicious anemia: Pulmonary nodule: History of COVID: DVT prophylaxis: Subcutaneous Lovenox Monitor vital signs and labs Labs and medication were reviewed. Continue same treatment. Further recommendations as per clinical course of the patient PHYSICAL EXAMINATION: GENERAL: The patient is A&O x3, NAD HEENT: EOMI, Sclerae anicteric, Moist Mucous membranes Neck: Supple, Non tender, No JVD PULMONARY: Equal breath souds B/L, No wheezing, No crackles. CARDIOVASCULAR: S1, S2 present. No murmurs, rubs, or gallops. ABDOMEN: Soft, nontender, nondistended, normoactive bowel sounds. No guarding or rebound tenderness. MUSCULOSKELETAL: No edema, No cyanosis. No clubbing. Normal ROM. Intact peripheral pulses. NEUROLOGICAL: CN 2-12 grossly intact. No FND Skin: No Rash REVIEW OF SYSTEMS: CONSTITUTIONAL: No fever or chills. CARDIOVASCULAR: No chest pain, palpitations or syncope. PULMONARY: No shortness of breath, no cough, sore throat. GASTROINTESTINAL: No nausea, vomiting, diarrhea, abdominal pain. : No Dysuria, urgency, frequency. Extremities: No edema. NEUROLOGICAL: No headaches, no weakness, or numbness Dictation was produced using [employer] dictation software. please excuse any grammatical, word or spelling errors. Objective - Vital Signs Vital signs: Vital Signs Temp 99.0 F 01/08/24 08:00 Pulse 83 01/08/24 08:00 Resp 16 01/08/24 08:00 BP 106/68 01/08/24 08:00 Pulse Ox 97 01/08/24 08:00 FiO2 Intake & Output 01/07/24 01/08/24 01/08/24 18:59 06:59 18:59 Intake Total 20 Output Total 100 Balance 20 -100 Weight 46.72 kg Intake: Oral 20 Output: Urine 100 Other: Voiding Method Diaper Diaper External Catheter External Catheter - Labs CBC & Chem 7: 01/07/24 15:25 01/07/24 15:25 Labs: Abnormal Lab Results - Last 24 Hours (Table) 01/07/24 01/07/24 Range/Units 15:25 15:25 RBC 3.59 L (3.80-5.40) m/uL Hgb 7.7 L (11.4-16.0) gm/dL Hct 26.7 L (34.0-46.0) % MCV 74.4 L (80.0-100.0) fL MCH 21.5 L (25.0-35.0) pg MCHC 29.0 L (31.0-37.0) g/dL RDW 20.5 H (11.5-15.5) % Plt Count 508 H (150-450) k/uL Sodium 132 L (137-145) mmol/L BUN 18 H (7-17) mg/dL Creatinine 0.48 L (0.52-1.04) mg/dL
[2024-01-08] MEDS: ENOXAPARIN 40 MG/0.4 ML SYRINGE SQ SCH (14:41)
--- NOTE | 2024-01-09 07:19 | P.PN ---
Subjective Progress Note Date: 01/09/24 Principal diagnosis: Periprosthetic greater trochanteric fracture left hip. Left hip pain. This is a 78-year-old female who is being treated conservatively for a periprosthetic greater trochanteric fracture of the left hip. She states that her pain is fairly well-controlled. She is awaiting placement in inpatient rehab. She has no new complaints or concerns today. Vital signs are stable. Objective - Vital Signs Vital signs: Vital Signs Temp 99.0 F 01/08/24 20:12 Pulse 75 01/09/24 02:05 Resp 16 01/09/24 02:05 BP 92/53 01/09/24 02:05 Pulse Ox 100 01/09/24 02:05 FiO2 Intake & Output 01/08/24 01/09/24 01/09/24 18:59 06:59 18:59 Intake Total 650 Output Total 200 Balance 450 Intake: Oral 650 Output: Urine 200 Other: Voiding Method Diaper Diaper External Catheter External Catheter # Voids 2 1 # Bowel Movements 0 - Exam This is a pleasant 78-year-old female in no acute distress. She is alert and oriented x 3. Exam of the left hip reveals minimal soft tissue swelling. There is no erythema or ecchymosis. She has full foot and ankle motion without difficulty or pain. Neurovascular status to the lower extremity is intact. Exam of the left little finger reveals ecchymosis and swelling. Range of motion is near full. Neurovascular status to the upper extremity is intact. - Labs CBC & Chem 7: 01/07/24 15:25 01/07/24 15:25 Assessment and Plan (1) Periprosthetic fracture around internal prosthetic hip joint Current Visit: Yes Status: Acute Code(s): M97.8XXA - PERIPROSTH FRACTURE AROUND OTHER INTERNAL PROSTH JOINT, INIT; Z96.649 - PRESENCE OF UNSPECIFIED ARTIFICIAL HIP JOINT SNOMED Code(s): 044602206 (2) Fall Current Visit: Yes Status: Acute Code(s): W19.XXXA - UNSPECIFIED FALL, INITIAL ENCOUNTER SNOMED Code(s): 6752272 (3) Fall from bed Current Visit: Yes Status: Acute Code(s): W06.XXXA - FALL FROM BED, INITIAL ENCOUNTER SNOMED Code(s): 84672294 (4) Femur fracture, left Current Visit: Yes Status: Acute Code(s): S72.92XA - UNSP FRACTURE OF LEFT FEMUR, INIT ENCNTR FOR CLOSED FRACTURE SNOMED Code(s): 69221846 Plan: The clinical and radiographic findings are discussed with the patient. Treatment options are discussed including surgical versus nonsurgical. The patient is a poor surgical candidate secondary to her health issues. It is recommended that we try conservative, nonoperative treatment at this time. She will be toe-touch weightbearing with a walker. His recommended she be evaluated by PT and OT for possible rehabilitation placement. We will take frequent follow-up x-rays and if the fracture appears to be having some displacement, we will revisit the surgical options.
--- NOTE | 2024-01-09 08:17 | CDI ---
Documentation Clarification Form Date: 01/09/2024 From: Cori Garcia RN CCDS Phone: [phone] Admit Date: 01/07/2024 12:29:00 AM Patient Name: Cesia Fried Visit Number: [id number] Discharge Date: ATTENTION: The Clinical Documentation Specialists (CDI) and [facility] Coding Staff appreciate your assistance in clarifying documentation. Please respond to the clarification below the line at the bottom and electronically sign. The CDI & [facility] Coding staff will review the response and follow-up if needed. Please note: Queries are made part of the Legal Health Record. If you have any questions, please contact the author of this message via ITS. Doctor/Provider: Pb Gao MD: Patient has a documented BMI of 18.2 on 01/06. Additional clarification is requested. History/Risk Factors: 78-year-old female with a history of Asthma, COPD on home oxygen, HTN and PNA who presents after falling out of bed and found to have a roly-prosthetic left femur fracture Clinical Indicators: 01/06 Patients weight is 46.72kg Patients height is 5ft 3in Calculated BMI is 18.2 01/06 Cardiology consult, Physical Exam: "Gen: This a thin cachectic appearing 78-year-old female" Treatments: Regular diet, I&O's, Feeding Assessments Please clarify, is there is an additional diagnosis that is clinically appropriate for this patient? [x ] Cachexia [ ] Underweight [ ] No additional diagnosis/not clinically significant [ ] Other, please specify [ ] Unable to determine MTDD
--- NOTE | 2024-01-09 08:43 | CDI ---
Documentation Clarification Form Date: 01/09/2024 From: Cori Garcia RN CCDS Phone: [phone] Admit Date: 01/07/2024 12:29:00 AM Patient Name: Cesia Fried Visit Number: [id number] Discharge Date: ATTENTION: The Clinical Documentation Specialists (CDI) and [facility] Coding Staff appreciate your assistance in clarifying documentation. Please respond to the clarification below the line at the bottom and electronically sign. The CDI & [facility] Coding staff will review the response and follow-up if needed. Please note: Queries are made part of the Legal Health Record. If you have any questions, please contact the author of this message via ITS. Doctor/Provider: Pb Gao MD: A stage II coccyx pressure injury is documented in the Nursing Physical Assessment note on 01/07. For each diagnosis, documentation must be clear to determine if the condition was present at the time of the patients inpatient admission or developed during the hospital stay. Additional clarification regarding the stage II coccyx pressure injury is requested. History/Risk Factors: 78-year-old female with a history of Asthma, COPD on home oxygen, HTN and PNA who presents after falling out of bed and found to have a roly-prosthetic left femur fracture Clinical Indicators: 01/06 Vito Score: 13 01/06 Cardiology consult, Physical Exam: "Gen: This a thin cachectic appearing 78-year-old female" 01/07 Nursing Physical Assessment, Integumentary: " Coccyx, Stage 2 pressure injury, Temperature: warm, Moisture: Moist, Texture: Loose, fragile, Skin Color: Erythema, Ecchymosis" 01/07 Nursing, Pressure Injury Assessment: "Coccyx pressure injury, Present on admission, stage II, Dressing Status: Dry and Intact" Treatment: Turn every 2 hours Nursing documenting dressings Definition of Present on Admission (POA): A diagnosis present at the time the order for admission to inpatient status was written. Please clarify if the Stage II coccyx pressure injury was POA: [ x] Y = Yes, the condition was present at the time of the order for inpatient admission. [ ] N = No, the condition was not present at the time of the order for inpatient admission. [ ] W = Clinically undetermined if the condition was present at the time of the order for inpatient admission. MTDD
--- NOTE | 2024-01-09 13:00 | P.PN ---
Subjective Progress Note Date: 01/09/24 Interval History: 78-year-old female with past medical history significant for COPD on 2 L oxygen at baseline, hypertension, hyperlipidemia, history of CA and cardiomyopathy who presented to ER after a fall while getting out of her bed. Patient stated that she accidentally rolled out of the bed striking on the carpeted floor on the left side injuring her left leg arm and side of the head. Patient denied any loss of consciousness or head injury. Patient was helped shortly afterwards by her son and [id number], patient was concerned about falling again and also continued to have increasing left leg pain while ambulating and with the use of walker at home, left lower extremity pain was 8 x 10. Patient denied being on any anticoagulants or antiplatelets. Patient denied any fever, chills, sore throat, productive cough, shortness of breath, nausea vomiting diarrhea constipation abdominal pain dysuria urgency frequency weakness or numbness of extremities. In the ED patient was afebrile, heart rate 86, respiratory rate 18, blood pressure 114/77, saturating 98% on [address] left hip showed left proximal femur periprosthetic fracture with displacement. CT head and CT cervical spine was negative for any acute process. X-ray left upper extremity negative for any acute process, showed osteoart hritis. 01/08/2024 Patient is febrile, heart rate 83, respiratory rate 16, blood pressure 106/68, s aturating 97% on 2 L. No new labs from today. Per orthopedic poor surgical candidate, recommend conservative management, no further ischemic workup per cardiology, outpatient follow-up. PT/OT consulted. Pain is controlled. 01/09/2024 Patient was seen and examined today. Patient remained afebrile, heart rate 82, respiratory rate 18, blood pressure 98/63, saturating 95% on 2 L oxygen at baseline. No new labs from today. Pain is controlled. Complaining of constipation, will continue on bowel protocol with Senokot MiraLAX. Awaiting placement to subacute rehab. Assessment and plan: Left femur periprosthetic fracture with displacement: Fall: Presented after a fall from bed CT left hip showed left proximal femur periprosthetic fracture with displacement. CT head and CT cervical spine negative for acute process. Pain management, perioperative antibiotics, DVT prophylaxis per orthopedics PT/OT consult Bowel/bladder protocol Incentive spirometry Check labs. Cardiology consult for cardiac clearance Per orthopedicpoor surgical candidate, recommended conservative management. Awaiting placement to subacute rehab History of CA: History of cardiomyopathy: Patient currently asymptomatic, denied any chest pain or shortness of breath Echocardiogram in 2021 showed ejection fraction 35 to 40%, later on recovered EF 55 to 60% on echocardiogram January 2023 Cardiology consulted--recommended outpatient follow-up, no further ischemic wor kup. COPD: Stable Not in acute exacerbation Continue inhalersDuoNeb, Symbicort, Mucinex, incentive spirometry. Hypertension: Stable Continue home meds lisinopril, Aldactone. Depression: Zoloft History of pernicious anemia: Pulmonary nodule: History of COVID: DVT prophylaxis: Subcutaneous Lovenox Monitor vital signs and labs Labs and medication were reviewed. Continue same treatment. Further recommendations as per clinical course of the patient PHYSICAL EXAMINATION: GENERAL: The patient is A&O x3, NAD HEENT: EOMI, Sclerae anicteric, Moist Mucous membranes Neck: Supple, Non tender, No JVD PULMONARY: Equal breath souds B/L, No wheezing, No crackles. CARDIOVASCULAR: S1, S2 present. No murmurs, rubs, or gallops. ABDOMEN: Soft, nontender, nondistended, normoactive bowel sounds. No guarding or rebound tenderness. MUSCULOSKELETAL: No edema, No cyanosis. No clubbing. Normal ROM. Intact peripheral pulses. NEUROLOGICAL: CN 2-12 grossly intact. No FND Skin: No Rash REVIEW OF SYSTEMS: CONSTITUTIONAL: No fever or chills. CARDIOVASCULAR: No chest pain, palpitations or syncope. PULMONARY: No shortness of breath, no cough, sore throat. GASTROINTESTINAL: No nausea, vomiting, diarrhea, abdominal pain. : No Dysuria, urgency, frequency. Extremities: No edema. NEUROLOGICAL: No headaches, no weakness, or numbness Dictation was produced using [employer] dictation software. please excuse any grammatical, word or spelling errors. Objective - Vital Signs Vital signs: Vital Signs Temp 98.6 F 01/09/24 07:54 Pulse 82 01/09/24 07:54 Resp 18 01/09/24 07:54 BP 98/63 01/09/24 07:54 Pulse Ox 95 01/09/24 07:54 FiO2 Intake & Output 01/08/24 01/09/24 01/09/24 18:59 06:59 18:59 Intake Total 650 Output Total 200 Balance 450 Intake: Oral 650 Output: Urine 200 Other: Voiding Method Diaper Diaper Diaper External Catheter External Catheter External Catheter # Voids 2 1 # Bowel Movements 0 - Labs CBC & Chem 7: 01/07/24 15:25 01/07/24 15:25
--- NOTE | 2024-01-10 08:42 | P.PN ---
Subjective Progress Note Date: 01/10/24 Principal diagnosis: Periprosthetic greater trochanteric fracture left hip. Left hip pain. This is a 78-year-old female who is being treated conservatively for a periprosthetic greater trochanteric fracture of the left hip. She states that her pain is fairly well-controlled. She is awaiting placement in inpatient rehab. She complains of some nausea today. She states that she has not had a bowel movement in the last week. She states that constipation is common for her. She reports no abdominal pain. Vital signs are stable. Objective - Vital Signs Vital signs: Vital Signs Temp 98.5 F 01/10/24 07:09 Pulse 82 01/10/24 07:09 Resp 18 01/10/24 07:09 BP 103/68 01/10/24 07:09 Pulse Ox 92 L 01/10/24 07:09 FiO2 Intake & Output 01/09/24 01/10/24 01/10/24 18:59 06:59 18:59 Intake Total 1020 Output Total 300 Balance 1020 -300 Intake: Oral 1020 Output: Urine 300 Other: Voiding Method Diaper Diaper External Catheter External Catheter - Exam This is a pleasant 78-year-old female in no acute distress. She is alert and oriented x 3. Exam of the left hip reveals minimal soft tissue swelling. There is no erythema or ecchymosis. She has full foot and ankle motion without difficulty or pain. Neurovascular status to the lower extremity is intact. Exam of the left little finger reveals ecchymosis and swelling. Range of motion is near full. Neurovascular status to the upper extremity is intact. There is minimal abdominal pain with palpation. There is no distention noted. - Labs CBC & Chem 7: 01/07/24 15:25 01/07/24 15:25 Assessment and Plan (1) Periprosthetic fracture around internal prosthetic hip joint Current Visit: Yes Status: Acute Code(s): M97.8XXA - PERIPROSTH FRACTURE AROUND OTHER INTERNAL PROSTH JOINT, INIT; Z96.649 - PRESENCE OF UNSPECIFIED ARTIFICIAL HIP JOINT SNOMED Code(s): 371830943 (2) Fall Current Visit: Yes Status: Acute Code(s): W19.XXXA - UNSPECIFIED FALL, INITIAL ENCOUNTER SNOMED Code(s): 8729841 (3) Fall from bed Current Visit: Yes Status: Acute Code(s): W06.XXXA - FALL FROM BED, INITIAL ENCOUNTER SNOMED Code(s): 04132721 (4) Femur fracture, left Current Visit: Yes Status: Acute Code(s): S72.92XA - UNSP FRACTURE OF LEFT FEMUR, INIT ENCNTR FOR CLOSED FRACTURE SNOMED Code(s): 46192433 Plan: The clinical and radiographic findings are discussed with the patient. Tatiana tment options are discussed including surgical versus nonsurgical. The patient is a poor surgical candidate secondary to her health issues. It is recommended that we try conservative, nonoperative treatment at this time. She will be toe- touch weightbearing with a walker. His recommended she be evaluated by PT and OT for possible rehabilitation placement. We will take frequent follow-up x-rays and if the fracture appears to be having some displacement, we will revisit the surgical options. She will be given Dulcolax orally and rectal suppository today. If her symptoms improve she may be discharged to rehab today.
[2024-01-10] MEDS: bisacodyL 10 MG SUPP RECTAL STA (10:22)
[2024-01-10] MEDS: bisacodyL 5 MG TABLET.DR PO STA (10:23)
[2024-01-10 14:55] VITALS: BMI 18.2
[2024-01-10] MEDS: LACTULOSE 20 GM/30 ML CUP PO SCH (17:22)
[2024-01-10] MEDS: polyethylene glycoL 3350 17 GM POWD.PACK PO SCH (17:22)
--- NOTE | 2024-01-11 05:04 | P.PN ---
Subjective Progress Note Date: 01/10/24 78-year-old female with past medical history significant for COPD on 2 L oxygen at baseline, hypertension, hyperlipidemia, history of DE and cardiomyopathy who presented to ER after a fall while getting out of her bed. Patient stated that she accidentally rolled out of the bed striking on the carpeted floor on the left side injuring her left leg arm and side of the head. Patient denied any loss of consciousness or head injury. Patient was helped shortly afterwards by her son and [id number], patient was concerned about falling again and also continued to have increasing left leg pain while ambulating and with the use of walker at home, left lower extremity pain was 8 x 10. Patient denied being on any anticoagulants or antiplatelets. Patient denied any fever, chills, sore throat, productive cough, shortness of breath, nausea vomiting diarrhea constipation abdominal pain dysuria urgency frequency weakness or numbness of extremities. In the ED patient was afebrile, heart rate 86, respiratory rate 18, blood pressure 114/77, saturating 98% on [address] left hip showed left proximal femur periprosthetic fracture with displacement. CT head and CT cervical spine was negative for any acute process. X-ray left upper extremity negative for any acute process, showed osteoarthritis. 01/08/2024 Patient is febrile, heart rate 83, respiratory rate 16, blood pressure 106/68, saturating 97% on 2 L. No new labs from today. Per orthopedic poor surgical candidate, recommend conservative management, no further ischemic workup per cardiology, outpatient follow-up. PT/OT consulted. Pain is controlled. 01/09/2024 Patient was seen and examined today. Patient remained afebrile, heart rate 82, respiratory rate 18, blood pressure 98/63, saturating 95% on 2 L oxygen at baseline. No new labs from today. Pain is controlled. Complaining of constipation, will continue on bowel protocol with Senokot MiraLAX. Awaiting placement to subacute rehab. 01/10/2024 Patient is seen in follow-up today reports to feeling horrible as she reports she has not had a bowel movement in a week and the pain is intense and awaiting to go to ECF. Patient required 3 night hospitalization according to Medicare guidelines. Patient is afebrile with no reports of chest pain or shortness of breath. Patient chronically wears oxygen outpatient. Recommend scheduled bowel regimen as well as as needed REVIEW OF SYSTEMS: CONSTITUTIONAL: No fever or chills. CARDIOVASCULAR: No chest pain, palpitations or syncope. PULMONARY: No shortness of breath, no cough, sore throat. GASTROINTESTINAL: No nausea, vomiting, diarrhea, abdominal pain. Reporting no bowel movement in 1 week : No Dysuria, urgency, frequency. Extremities: No edema. NEUROLOGICAL: No headaches, no weakness, or numbness PHYSICAL EXAMINATION: GENERAL: The patient is A&O x3, NAD, thin build, elderly appearing HEENT: EOMI, Sclerae anicteric, Moist Mucous membranes Neck: Supple, Non tender, No JVD PULMONARY: Diminished breath sounds bilaterally otherwise equal breath sounds B/L, No wheezing, No crackles. CARDIOVASCULAR: S1, S2 present. No murmurs, rubs, or gallops. ABDOMEN: Soft, thin, nontender, nondistended, normoactive bowel sounds. No guarding or rebound tenderness. MUSCULOSKELETAL: No edema, No cyanosis. No clubbing. Normal ROM. Intact peripheral pulses. NEUROLOGICAL: CN 2-12 grossly intact. No FND Skin: Stage II coccyx pressure ulcer Assessment and plan: Left femur periprosthetic fracture with displacement: Secondary to fall out of bed CT left hip showed left proximal femur periprosthetic fracture with displac ement. History of DE: History of cardiomyopathy: Echo in 2021 showed an EF of 35 to 40% and some rec overy of 55 to 60% in January 2023 COPD: Not in exacerbation Hypertension Depression History of pernicious anemia: Moderate protein calorie malnutrition with a BMI of 18.2 Stage II coccyx pressure ulcer, present on admission Pulmonary nodule: Needs ongoing outpatient follow-up History of COVID GI prophylaxis DVT prophylaxis: Subcutaneous Lovenox Full code Plan: Recommend to continue with current medications and management per orthopedic services. Patient has been seen and evaluated by PT/OT therapy recommending rehab and patient is scheduled to be discharged to [facility] today. Patient reporting severe pain and has not had a bowel movement in over a week. Bowel regimen along with lactulose and suppositories ordered and will be monitored overnight for improvements as well as pain management. Patient will be going to [facility] for continued PT/OT therapy with case management following. Patient required 3 night hospitalization according to Medicare guidelines. Appropriate home medications resumed Due to multiple complex medical issues, overall prognosis is guarded Patient is medically stable once cleared by orthopedics for discharge to [facility] The impression and plan of care has been dictated by Janell Luevano, nurse practitioner as directed. Dr. Carrillo MD I have performed a history and examination and MDM of this patient, discussed the same with the dictator, and agree with the dictator's assessment and plan as written ,documented as a scribe. Based on total visit time, I have performed more than 50% of the visit. Any additional findings or plans will be noted. Objective - Vital Signs Vital signs: Vital Signs Temp 98.6 F 01/10/24 13:26 Pulse 107 H 01/10/24 13:26 Resp 19 01/10/24 13:26 BP 102/71 01/10/24 13:26 Pulse Ox 94 L 01/10/24 13:26 FiO2 Intake & Output 01/09/24 01/10/24 01/10/24 18:59 06:59 18:59 Intake Total 1020 Output Total 300 Balance 1020 -300 Weight 46.72 kg Intake: Oral 1020 Output: Urine 300 Other: Voiding Method Diaper Diaper Diaper External Catheter External Catheter External Catheter - Labs CBC & Chem 7: 01/07/24 15:25 01/07/24 15:25
[2024-01-11 08:09] VITALS: RESP 20; TEMP 98
--- NOTE | 2024-01-11 08:15 | P.DS ---
Providers Date of admission: 01/07/24 00:29 Expected date of discharge: 01/11/24 Attending physician: Anson Sauceda Consults: 01/07/24 00:25 Consult Physician Urgent Consulting Provider: Frederic Yu Consult Reason/Comments: Medical Management Do you want consulting provider notified?: Yes, Notify in am 01/07/24 09:34 Consult Physician Routine Consulting Provider: Yuan Trevino Consult Reason/Comments: Cardiac clearnace for hip surgery, h/o SC, Cardiomyopathy Do you want consulting provider notified?: Yes Primary care physician: Tory Gonzalez - Discharge Diagnosis(es) (1) Periprosthetic fracture around internal prosthetic hip joint Current Visit: Yes Status: Acute (2) Fall Current Visit: Yes Status: Acute (3) Fall from bed Current Visit: Yes Status: Acute (4) Femur fracture, left Current Visit: Yes Status: Acute Hospital Course: This is a 78-year-old female who sustained injury to her left hip when she fell out of bed on 01/06/2024. She landed directly on her left hip. She has history of femoral neck fracture in the past and had a hemiarthroplasty approximately [address] Sauceda. The patient has moderate to severe COPD and is on home O2. She complains of pain about her left hand as well since the fall. She was found to have a nondisplaced periprosthetic greater trochanteric fx. It was decided that conservative/non surgical treatment was most appropriate at this time. Pt had difficulty with independent activity and ADL's. It was recommended she go to IP rehab. The patient is discharged to IP rehab in stable condition. She is to f/u with Dr Sauceda in 7-10 days for eval and Xray. She will be TTWB w walker. Patient Condition at Discharge: Good Plan - Discharge Summary New Discharge Prescriptions: New polyethylene glycoL 3350 [Miralax] 17 gm PO DAILY #527 gm Sennosides [Senokot] 8.6 mg PO DAILY PRN tab PRN Reason: Constipation Ondansetron Odt [Zofran Odt] 4 mg PO Q8HR PRN #10 tab PRN Reason: Nausea HYDROcodone/APAP 5-325MG [Polvadera 5-325] 1 - 2 tab PO Q6HR PRN #28 tab PRN Reason: Pain Lactulose [Cephulac] 20 gm PO BID #240 ml Enoxaparin [Lovenox] 40 mg SQ DAILY each guaiFENesin [Mucinex] 600 mg PO Q12H PRN tab PRN Reason: Congestion Continue Simvastatin [Zocor] 40 mg PO HS Montelukast Sodium [Singulair] 10 mg PO HS Sertraline [Zoloft] 200 mg PO DAILY Omeprazole 20 mg PO DAILY Spironolactone [Aldactone] 25 mg PO DAILY #30 tab Metoprolol Succinate (ER) [Toprol XL] 50 mg PO DAILY Ipratropium-Albuterol Nebulize [Duoneb 0.5 mg-3 mg/3 ml Soln] 3 ml INHALATION RT-QID PRN PRN Reason: Shortness Of Breath lisinopriL [Zestril] 2.5 mg PO DAILY Mometasone/Formoterol [Dulera 200 Mcg-5 Mcg Inhaler] 2 puff INHALATION RT-BID Ferrous Sulfate [Iron (65 MG Elemental)] 325 mg PO DAILY Albuterol Sulfate [Ventolin HFA] 2 puff INHALATION RT-Q4H PRN PRN Reason: Shortness Of Breath Ipratropium/Albuterol Sulfate [Combivent Respimat Inhaler] 1 puff INHALATION RT-QID Acetaminophen [Tylenol Extra Strength] 1,000 mg PO Q6H PRN PRN Reason: Fever And/ Or Pain ALPRAZolam [Xanax] 0.5 mg PO TID PRN PRN Reason: Anxiety Aspirin 81 mg PO DAILY tab Melatonin 10 mg PO HS Discharge Medication List Simvastatin [Zocor] 40 mg PO HS 02/20/15 [History] Montelukast Sodium [Singulair] 10 mg PO HS 03/01/16 [History] Albuterol Sulfate [Ventolin HFA] 2 puff INHALATION RT-Q4H PRN 06/20/21 [History] Ipratropium/Albuterol Sulfate [Combivent Respimat Inhaler] 1 puff INHALATION RT- QID 06/20/21 [History] Omeprazole 20 mg PO DAILY 06/20/21 [History] Sertraline [Zoloft] 200 mg PO DAILY 06/20/21 [History] Acetaminophen [Tylenol Extra Strength] 1,000 mg PO Q6H PRN 09/13/22 [History] Spironolactone [Aldactone] 25 mg PO DAILY #30 tab 12/28/21 [Rx] Metoprolol Succinate (ER) [Toprol XL] 50 mg PO DAILY 02/25/22 [History] ALPRAZolam [Xanax] 0.5 mg PO TID PRN 02/21/23 [History] Ipratropium-Albuterol Nebulize [Duoneb 0.5 mg-3 mg/3 ml Soln] 3 ml INHALATION RT-QID PRN 02/21/23 [History] Aspirin 81 mg PO DAILY tab 03/02/23 [Rx] Ferrous Sulfate [Iron (65 MG Elemental)] 325 mg PO DAILY 01/07/24 [History] Melatonin 10 mg PO HS 01/07/24 [History] Mometasone/Formoterol [Dulera 200 Mcg-5 Mcg Inhaler] 2 puff INHALATION RT-BID 01/07/24 [History] lisinopriL [Zestril] 2.5 mg PO DAILY 01/07/24 [History] HYDROcodone/APAP 5-325MG [Polvadera 5-325] 1 - 2 tab PO Q6HR PRN #28 tab 01/09/24 [Rx] Enoxaparin [Lovenox] 40 mg SQ DAILY each 01/10/24 [Rx] Lactulose [Cephulac] 20 gm PO BID #240 ml 01/10/24 [Rx] Ondansetron Odt [Zofran Odt] 4 mg PO Q8HR PRN #10 tab 01/10/24 [Rx] Sennosides [Senokot] 8.6 mg PO DAILY PRN tab 01/10/24 [Rx] guaiFENesin [Mucinex] 600 mg PO Q12H PRN tab 01/10/24 [Rx] polyethylene glycoL 3350 [Miralax] 17 gm PO DAILY #527 gm 01/10/24 [Rx] Follow up Appointment(s)/Referral(s): Tory Gonzalez MD [Primary Care Provider] - 1-2 days [facility], [NON-STAFF] - As Needed Anson Sauceda MD [STAFF PHYSICIAN] - 10 Days Patient Instructions/Handouts: Fall Prevention for Older Adults (ED) Activity/Diet/Wound Care/Special Instructions: Toe-touch weightbearing to the left lower extremity with walker. Follow-up with Dr. Sauceda 10 days for x-ray and evaluation. Discharge Disposition: TRANSFER TO SNF/ECF
--- NOTE | 2024-01-11 13:43 | XR ---
EXAMINATION TYPE: XR chest 1V portable DATE OF EXAM: 01/11/2024 1:27 PM COMPARISON: None. CLINICAL INDICATION: Female, 78 years old with history of SOB, TECHNIQUE: XR chest 1V portable view(s) obtained. FINDINGS: The heart size is normal. The pulmonary vasculature is normal. There is a spiculated density within the left peripheral lung. Some right pleural plaquing is suspect ed. Hyperinflation is present. IMPRESSION: 1. Scattered increased lung markings similar to prior study. Short-term follow-up in 3 months is rosangela mmended. CT chest can be performed if closer evaluation at this time would be of benefit. [facility], , 01/11/2024 1:40 PM
[2024-01-11 14:51] VITALS: BP 92/60; PULSE 80
--- NOTE | 2024-01-12 10:11 | P.PN ---
Subjective Progress Note Date: 01/11/24 78-year-old female with past medical history significant for COPD on 2 L oxygen at baseline, hypertension, hyperlipidemia, history of MT and cardiomyopathy who presented to ER after a fall while getting out of her bed. Patient stated that she accidentally rolled out of the bed striking on the carpeted floor on the left side injuring her left leg arm and side of the head. Patient denied any loss of consciousness or head injury. Patient was helped shortly afterwards by her son and [id number], patient was concerned about falling again and also continued to have increasing left leg pain while ambulating and with the use of walker at home, left lower extremity pain was 8 x 10. Patient denied being on any anticoagulants or antiplatelets. Patient denied any fever, chills, sore throat, productive cough, shortness of breath, nausea vomiting diarrhea constipation abdominal pain dysuria urgency frequency weakness or numbness of extremities. In the ED patient was afebrile, heart rate 86, respiratory rate 18, blood pressure 114/77, saturating 98% on [address] left hip showed left proximal femur periprosthetic fracture with displacement. CT head and CT cervical spine was negative for any acute process. X-ray left upper extremity negative for any acute process, showed osteoarthritis. 01/08/2024 Patient is febrile, heart rate 83, respiratory rate 16, blood pressure 106/68, saturating 97% on 2 L. No new labs from today. Per orthopedic poor surgical candidate, recommend conservative management, no further ischemic workup per cardiology, outpatient follow-up. PT/OT consulted. Pain is controlled. 01/09/2024 Patient was seen and examined today. Patient remained afebrile, heart rate 82, respiratory rate 18, blood pressure 98/63, saturating 95% on 2 L oxygen at baseline. No new labs from today. Pain is controlled. Complaining of constipation, will continue on bowel protocol with Senokot MiraLAX. Awaiting placement to subacute rehab. 01/10/2024 Patient is seen in follow-up today reports to feeling horrible as she reports she has not had a bowel movement in a week and the pain is intense and awaiting to go to ECF. Patient required 3 night hospitalization according to Medicare guidelines. Patient is afebrile with no reports of chest pain or shortness of breath. Patient chronically wears oxygen outpatient. Recommend scheduled bowel regimen as well as as needed 01/11/2024 Patient is seen in follow-up this morning reports feeling a little better although continues to be significantly weak and unable to walk with continued left hip pain. Patient chronically wears oxygen outpatient for COPD and was reporting some shortness of breath and will obtain a chest x-ray. Patient is maintained on inhalers along with DuoNeb treatments. Recommend to continue. Plan is for patient to go to [facility] today. REVIEW OF SYSTEMS: CONSTITUTIONAL: No fever or chills. CARDIOVASCULAR: No chest pain, palpitations or syncope. PULMONARY: No shortness of breath, no cough, sore throat. GASTROINTESTINAL: No nausea, no vomiting, no diarrhea, improved abdominal pain. Reporting had a bowel movement although back to like I wanted to see what his thoughts were on she is a 7 : No Dysuria, urgency, frequency. Extremities: No edema. NEUROLOGICAL: No headaches, no weakness, or numbness PHYSICAL EXAMINATION: GENERAL: The patient is A&O x3, NAD, thin build, elderly appearing HEENT: EOMI, Sclerae anicteric, Moist Mucous membranes Neck: Supple, Non tender, No JVD PULMONARY: Diminished breath sounds bilaterally otherwise equal breath sounds B/L, No wheezing, No crackles. CARDIOVASCULAR: S1, S2 present. No murmurs, rubs, or gallops. ABDOMEN: Soft, thin, nontender, nondistended, normoactive bowel sounds. No guarding or rebound tenderness. MUSCULOSKELETAL: No edema, No cyanosis. No clubbing. Normal ROM. Intact peripheral pulses. NEUROLOGICAL: CN 2-12 grossly intact. No FND Skin: Stage II coccyx pressure ulcer Assessment and plan: Left femur periprosthetic fracture with displacement: Secondary to fall out of bed CT left hip showed left proximal femur periprosthetic fracture with displacement. Orthopedics recommending conservative management as patient is a poor surgical candidate History of MT History of cardiomyopathy: Echo in 2021 showed an EF of 35 to 40% and some recovery of 55 to 60% in January 2023 COPD: Not in exacerbation Hypertension Depression History of pernicious anemia: Moderate protein calorie malnutrition with a BMI of 18.2 Stage II coccyx pressure ulcer, present on admission Pulmonary nodule: Needs ongoing outpatient follow-up History of COVID GI prophylaxis DVT prophylaxis: Subcutaneous Lovenox Full code Plan: Recommend to continue with current medications and management per orthopedic services. Patient has been seen and evaluated by PT/OT therapy recommending rehab and patient is scheduled to be discharged to [facility] today. Encouraged continued bowel regimen scheduled as well as as needed. Patient was able to have a bowel movement this morning. Patient will be going to [facility] for continued PT/OT therapy with case m anawilliam following. Patient required 3 night hospitalization according to Medicare guidelines. Appropriate home medications resumed. Continue DuoNeb treatments along with as needed inhalers for her chronic COPD and 2 to 3 L nasal cannula. Patient instructed to follow-up with primary care provider once discharged. Due to multiple complex medical issues, overall prognosis is guarded Patient is medically stable once cleared by orthopedics for discharge to [facility] The impression and plan of care has been dictated by Janell Luevano, nurse practitioner as directed. Dr. Carrillo MD I have performed a history and examination and MDM of this patient, discussed the same with the dictator, and agree with the dictator's assessment and plan as written ,documented as a scribe. Based on total visit time, I have performed more than 50% of the visit. Any additional findings or plans will be noted. Objective - Vital Signs Vital signs: Vital Signs Temp 98.0 F 01/11/24 07:15 Pulse 78 01/11/24 07:15 Resp 20 01/11/24 07:15 BP 104/73 01/11/24 07:15 Pulse Ox 92 L 01/11/24 07:15 FiO2 Intake & Output 01/10/24 01/11/24 01/11/24 18:59 06:59 18:59 Output Total 400 Balance -400 Weight 46.72 kg Output: Urine 400 Other: Voiding Method Diaper Diaper External Catheter # Bowel Movements 1 - Labs CBC & Chem 7: 01/07/24 15:25 01/07/24 15:25
== END 2024-01-11 17:11 | DRG 536 ==
LOC: EC 18:32 → 4SSUR 01-07 00:29 → 1SOBS 01-07 10:05 → 4SSUR 01-09 16:26
PROVIDERS: ADMIT Orthopaedic Surgery; ATTEND Orthopaedic Surgery
DX: S72.112A Displaced fracture of greater trochanter of left femur, initial encounter for closed fracture (principal); M97.02XA Periprosthetic fracture around internal prosthetic left hip joint, initial encounter; E44.0 Moderate protein-calorie malnutrition; I42.9 Cardiomyopathy, unspecified; J96.11 Chronic respiratory failure with hypoxia; R64 Cachexia; Z68.1 Body mass index [BMI] 19.9 or less, adult; I47.19 Other supraventricular tachycardia; L89.152 Pressure ulcer of sacral region, stage 2; Z99.81 Dependence on supplemental oxygen; I10 Essential (primary) hypertension; J44.89 Other specified chronic obstructive pulmonary disease; F32.A Depression, unspecified; D51.0 Vitamin B12 deficiency anemia due to intrinsic factor deficiency; K59.00 Constipation, unspecified; R91.1 Solitary pulmonary nodule; E78.5 Hyperlipidemia, unspecified; F41.9 Anxiety disorder, unspecified; K21.9 Gastro-esophageal reflux disease without esophagitis; W06.XXXA Fall from bed, initial encounter; I25.2 Old myocardial infarction; Y92.003 Bedroom of unspecified non-institutional (private) residence as the place of occurrence of the external cause; Y99.8 Other external cause status; Z79.51 Long term (current) use of inhaled steroids; Z79.82 Long term (current) use of aspirin; Z79.899 Other long term (current) drug therapy; Z86.16 Personal history of COVID-19; Z87.891 Personal history of nicotine dependence; Z82.49 Family history of ischemic heart disease and other diseases of the circulatory system
CPT/HCPCS: 70450; 71045; 71046; 72125; 73521; 80048; 85025; 94640; 94760; 96374; 96375; 99285

== ENCOUNTER 2024-01-15 23:20 | Emergency (ER) | payer MEDICARE, OTHER ==
[2024-01-15 23:47] VITALS: TEMP 98.4
--- NOTE | 2024-01-16 00:23 | ED ---
Recheck HPI - General Chief Complaint: Recheck/Abnormal Lab/Rx Stated Complaint: Abnormal labs Time Seen by Provider: 01/16/24 00:21 Source: patient, EMS, RN notes reviewed Mode of arrival: EMS - History of Present Illness Initial Comments: 78-year-old female sent from [facility] for low hemoglobin. Recent laboratory studies reveal hemoglobin of 6.6. Patient is asymptomatic. Denies chest pain, shortness of breath, abdominal pain. Patient does states she has a history of anemia and has had several transfusions in the past. She did a hip fracture from a fall last week where they decided to not perform surgery. Patient states she takes Webber and Zofran for nausea requesting her at home medication. - Related Data Home Medications Medication Instructions Recorded Confirmed Simvastatin [Zocor] 40 mg PO HS 02/20/15 01/07/24 Montelukast Sodium [Singulair] 10 mg PO HS 03/01/16 01/07/24 Albuterol Sulfate [Ventolin HFA] 2 puff INHALATION RT-Q4H PRN 06/20/21 01/07/24 Ipratropium/Albuterol Sulfate 1 puff INHALATION RT-QID 06/20/21 01/07/24 [Combivent Respimat Inhaler] Omeprazole 20 mg PO DAILY 06/20/21 01/07/24 Sertraline [Zoloft] 200 mg PO DAILY 06/20/21 01/07/24 Acetaminophen [Tylenol Extra 1,000 mg PO Q6H PRN 11/08/21 01/07/24 Strength] Metoprolol Succinate (ER) [Toprol 50 mg PO DAILY 02/25/22 01/07/24 XL] Ipratropium-Albuterol Nebulize 3 ml INHALATION RT-QID PRN 02/21/23 01/07/24 [Duoneb 0.5 mg-3 mg/3 ml Soln] Ferrous Sulfate [Iron (65 MG 325 mg PO DAILY 01/07/24 01/07/24 Elemental)] Melatonin 10 mg PO HS 01/07/24 01/07/24 Mometasone/Formoterol [Dulera 200 2 puff INHALATION RT-BID 01/07/24 01/07/24 Mcg-5 Mcg Inhaler] lisinopriL [Zestril] 2.5 mg PO DAILY 01/07/24 01/07/24 Previous Rx's Medication Instructions Recorded Spironolactone [Aldactone] 25 mg PO DAILY #30 tab 12/28/21 Aspirin 81 mg PO DAILY tab 03/02/23 HYDROcodone/APAP 5-325MG [[place] 1 - 2 tab PO Q6HR PRN #28 tab 01/09/24 5-325] Enoxaparin [Lovenox] 40 mg SQ DAILY each 01/10/24 Lactulose [Cephulac] 20 gm PO BID #240 ml 01/10/24 Ondansetron Odt [Zofran Odt] 4 mg PO Q8HR PRN #10 tab 01/10/24 Sennosides [Senokot] 8.6 mg PO DAILY PRN tab 01/10/24 guaiFENesin [Mucinex] 600 mg PO Q12H PRN tab 01/10/24 polyethylene glycoL 3350 [Miralax] 17 gm PO DAILY #527 gm 01/10/24 ALPRAZolam [Xanax] 0.5 mg PO TID PRN #4 tab 01/11/24 Albuterol Nebulized [Ventolin 2.5 mg INHALATION RT-Q4H PRN ml 01/11/24 Nebulized] Budesonide-Formot 160-4.5 Mcg 2 puff INHALATION RT-BID each 01/11/24 [Symbicort 160-4.5 Mcg Inhaler] Allergies Allergy/AdvReac Type Severity Reaction Status Date / Time No Known Allergies Allergy Verified 01/15/24 23:47 Review of Systems ROS Statement: Those systems with pertinent positive or pertinent negative responses have been documented in the HPI. ROS Other: All systems not noted in ROS Statement are negative. Past Medical History Past Medical History: Asthma, Chest Pain / Angina, COPD, GERD/Reflux, Hyperlipidemia, Hypertension, Pneumonia Additional Past Medical History / Comment(s): oxygen [place] @2L continuous, gallstones, pernicious anemia History of Any Multi-Drug Resistant Organisms: Other MDRO Past Surgical History: Hernia Repair, Joint Replacement, Orthopedic Surgery, Tonsillectomy Additional Past Surgical History / Comment(s): left elbow surgery, abscess in stomach area, abdominial scar tissue, tamie oophorectomy, left knee surgery, left hip replacement Past Anesthesia/Blood Transfusion Reactions: No Reported Reaction Past Psychological History: Anxiety, Depression Smoking Status: Former smoker Past Alcohol Use History: None Reported Past Drug Use History: None Reported - Past Family History Mother Family Medical History: No Reported History Additional Family Medical History / Comment(s): MS Father Family Medical History: CVA/TIA, Myocardial Infarction (AR) Additional Family Medical History / Comment(s): ETOH General Exam General appearance: alert, in no apparent distress Head exam: Present: atraumatic, normocephalic, normal inspection Eye exam: Present: normal appearance, PERRL, EOMI. Absent: scleral icterus, conjunctival injection, periorbital swelling ENT exam: Present: normal exam, mucous membranes moist Neck exam: Present: normal inspection. Absent: tenderness, meningismus, lymphadenopathy Respiratory exam: Present: normal lung sounds bilaterally. Absent: respiratory distress, wheezes, rales, rhonchi, stridor Cardiovascular Exam: Present: regular rate, normal rhythm, normal heart sounds. Absent: systolic murmur, diastolic murmur, rubs, gallop, clicks Neurological exam: Present: alert, oriented X3 Psychiatric exam: Present: normal affect, normal mood Skin exam: Present: warm, dry, intact, normal color. Absent: rash Course Vital Signs 01/15/24 01/16/24 23:21 00:32 Temperature 98.4 F Pulse Rate 90 106 H Respiratory 16 16 Rate Blood Pressure 103/68 O2 Sat by Pulse 99 100 Oximetry Medical Decision Making - Medical Decision Making Was pt. sent in by a medical professional or institution (, PA, SENIOR NET ENGINEER, urgent care, hospital, or penitentiary...) When possible be specific @ -Sent by medical [facility] for low hemoglobin Did you speak to anyone other than the patient for history (EMS, parent, family, police, friend...)? What history was obtained from this source @ -No Did you review nursing and triage notes (agree or disagree)? Why? @ -I reviewed and agree with nursing and triage notes Were old charts reviewed (outside hosp., previous admission, EMS record, old EKG, old radiological studies, urgent care reports/EKG's, penitentiary records)? Report findings @ -No old charts were reviewed Differential Diagnosis (chest pain, altered mental status, abdominal pain women, abdominal pain men, vaginal bleeding, weakness, fever, dyspnea, syncope, headache, dizziness, GI bleed, back pain, seizure, CVA, palpatations, mental health, musculoskeletal)? @ -Not applicable EKG interpreted by me (3pts min.). @ -As above X-rays interpreted by me (1pt min.). @ -None done CT interpreted by me (1pt min.). @ -None done U/S interpreted by me (1pt. min.). @ -None done What testing was considered but not performed or refused? (CT, X-rays, U/S, labs)? Why? @ -None What meds were considered but not given or refused? Why? @ -None Did you discuss the management of the patient with other professionals (professionals i.e. , PA, SENIOR NET ENGINEER, lab, RT, psych nurse, director of social media marketing, client application support engineer, teacher, humane officer, returned case inspector)? Give summary @ -No Was smoking cessation discussed for >3mins.? @ -No Was critical care preformed (if so, how long)? @ -No Were there social determinants of health that impacted care today? How? (Homelessness, low income, unemployed, alcoholism, drug addiction, transpor tation, low edu. Level, literacy, decrease access to med. care, senior living, rehab)? @ -No Was there de-escalation of care discussed even if they declined (Discuss DNR or withdrawal of care, Hospice)? DNR status @ -No What co-morbidities impacted this encounter? (DM, HTN, Smoking, COPD, CAD, Cancer, CVA, ARF, Chemo, Hep., AIDS, mental health diagnosis, sleep apnea, morbid obesity)? @ -None Was patient admitted / discharged? Hospital course, mention meds given and route, prescriptions, significant lab abnormalities, going to OR and other pertinent info. @ -Discharge. This is a 78-year-old female sent from [facility] for low hemoglobin. Initial vital signs within acceptable limits. Patient is asymp tomatic. EKG reveals sinus tachycardia rate [address] changes. Lab work remarkable for hemoglobin 7.6, sodium 129. Results discussed with patient. Patient does not require transfusion at this time, however advised repeat labs in 1 to 2 days for reevaluation. Appropriate return parameters and follow-up care discussed with patient. Case was discussed with my ED attending Dr. Newton. Undiagnosed new problem with uncertain prognosis? @ -No Drug Therapy requiring intensive monitoring for toxicity (Heparin, Nitro, Insulin, Cardizem)? @ -No Were any procedures done? @ -No Diagnosis/symptom? @ -Abnormal lab value Acute, or Chronic, or Acute on Chronic? @ -Acute Uncomplicated (without systemic symptoms) or Complicated (systemic symptoms)? @ -Uncomplicated Side effects of treatment? @ -No Exacerbation, Progression, or Severe Exacerbation? @ -No Poses a threat to life or bodily function? How? (Chest pain, USA, AR, pneumonia, PE, COPD, DKA, ARF, appy, cholecystitis, CVA, Diverticulitis, Homicidal, Suicidal, threat to staff... and all critical care pts) @ -No - Lab Data Result diagrams: 01/16/24 00:00 01/16/24 00:00 Lab Results 01/16/24 01/16/24 01/16/24 Range/Units 00:00 00:00 00:00 WBC 13.4 H (3.8-10.6) k/uL RBC 3.59 L (3.80-5.40) m/uL Hgb 7.6 L (11.4-16.0) gm/dL Hct 26.7 L (34.0-46.0) % MCV 74.4 L (80.0-100.0) fL MCH 21.1 L (25.0-35.0) pg MCHC 28.4 L (31.0-37.0) g/dL RDW 20.6 H (11.5-15.5) % Plt Count 636 H (150-450) k/uL MPV 7.5 Neutrophils % 83 % Lymphocytes % 8 % Monocytes % 6 % Eosinophils % 2 % Basophils % 0 % Neutrophils # 11.1 H (1.3-7.7) k/uL Lymphocytes # 1.1 (1.0-4.8) k/uL Monocytes # 0.8 (0-1.0) k/uL Eosinophils # 0.3 (0-0.7) k/uL Basophils # 0.0 (0-0.2) k/uL Hypochromasia Marked Anisocytosis Moderate Microcytosis Moderate PT 10.4 (10.0-12.5) sec INR 0.9 (<1.2) APTT 29.0 (22.0-30.0) sec Sodium 129 L (137-145) mmol/L Potassium 4.7 (3.5-5.1) mmol/L Chloride 93 L (98-107) mmol/L Carbon Dioxide 32 H (22-30) mmol/L Anion Gap 4 mmol/L BUN 13 (7-17) mg/dL Creatinine 0.51 L (0.52-1.04) mg/dL Est GFR (CKD-EPI)AfAm >90 (>60 ml/min/1.73 sqM) Est GFR (CKD-EPI)NonAf >90 (>60 ml/min/1.73 sqM) Glucose 96 (74-99) mg/dL Calcium 8.4 (8.4-10.2) mg/dL Total Bilirubin 0.4 (0.2-1.3) mg/dL AST 15 (14-36) U/L ALT 10 (4-34) U/L Alkaline Phosphatase 83 (38-126) U/L Total Protein 5.9 L (6.3-8.2) g/dL Albumin 2.8 L (3.5-5.0) g/dL - EKG Data -: EKG Interpreted by [facility] EKG Comments: EKG reveals sinus tachycardia with no ST changes. Ventricular rate 104 bpm, IN interval 169, QRS duration 88, QT/QTc 323/384 Disposition Clinical Impression: Abnormal laboratory test Disposition: HOME SELF-CARE Condition: Stable Additional Instructions: Repeat CBC in 1 to 2 days. Please return to the Emergency Department if symptoms worsen or any other concerns. Is patient prescribed a controlled substance at d/c from ED?: No Referrals: Tory Gonzalez MD [Primary Care Provider] - 1-2 days Time of Disposition: 01:07
[2024-01-16 00:26] LABS: Anisocytosis Moderate; Basophils % (A) 0 %; Eosinophils # (A) 0.3 k/uL (0-0.7); Eosinophils % (A) 2 %; HCT 26.7 % (34.0-46.0); HGB 7.6 gm/dL (11.4-16.0); Hypochromasia Marked; Lymphocytes # (A) 1.1 k/uL (1.0-4.8); Lymphocytes % (A) 8 %; MCH 21.1 pg (25.0-35.0); MCHC 28.4 g/dL (31.0-37.0); MCV 74.4 fL (80.0-100.0); Mean Platelet Volume 7.5; Microcytosis Moderate; Monocytes # (A) 0.8 k/uL (0-1.0); Monocytes % (A) 6 %; Neutrophils # (A) 11.1 k/uL (1.3-7.7); Neutrophils % (A) 83 %; Platelet Count 636 k/uL (150-450); RBC 3.59 m/uL (3.80-5.40); RDW 20.6 % (11.5-15.5); WBC 13.4 k/uL (3.8-10.6)
[2024-01-16 00:33] LABS: ALT 10 U/L (4-34); AST 15 U/L (14-36); African American GFR (CKD) >90 (>60 ml/min/1.73 sqM); Albumin 2.8 g/dL (3.5-5.0); Alkaline Phosphatase 83 U/L (38-126); Anion Gap 4 mmol/L; Blood Urea Nitrogen 13 mg/dL (7-17); Calcium 8.4 mg/dL (8.4-10.2); Carbon Dioxide 32 mmol/L (22-30); Chloride 93 mmol/L (98-107); Glucose 96 mg/dL (74-99); Non-African American GFR(CKD) >90 (>60 ml/min/1.73 sqM); Potassium 4.7 mmol/L (3.5-5.1); Sodium 129 mmol/L (137-145); Total Bilirubin 0.4 mg/dL (0.2-1.3); Total Protein 5.9 g/dL (6.3-8.2)
[2024-01-16 00:34] LABS: INR 0.9 (<1.2); Prothrombin Time 10.4 sec (10.0-12.5)
[2024-01-16] MEDS: HYDROcodone/APAP 5-325MG 1 EACH TAB PO STA (00:38)
[2024-01-16] MEDS: ONDANSETRON 4 MG/2 ML VIAL IVP STA (00:38)
[2024-01-16 02:31] VITALS: BP 91/60; PULSE 85; RESP 18
== END 2024-01-16 02:45 | disposition home or self-care (01) ==
LOC: EC 23:20
DX: R79.9 Abnormal finding of blood chemistry, unspecified (principal); R00.0 Tachycardia, unspecified; Z87.891 Personal history of nicotine dependence
CPT/HCPCS: 36415; 93005; 80053; 85025; 85610; 85730; 99284; 96374; J2405

== ENCOUNTER 2024-01-21 18:35 | Inpatient (IN) | payer MEDICARE, OTHER ==
[2024-01-21] MEDS: SODIUM CHLORIDE 0.9% 500 ML 500 ML IV ONE (20:04)
[2024-01-21] MEDS: HYDROcodone/APAP 7.5-325MG 1 EACH TAB PO ONE (20:13)
[2024-01-21] MEDS: ONDANSETRON 4 MG/2 ML VIAL IVP STA (20:23)
[2024-01-21 20:50] LABS: Anisocytosis Slight; Basophils % (A) 0 %; Eosinophils # (A) 0.1 k/uL (0-0.7); Eosinophils % (A) 0 %; HCT 25.7 % (34.0-46.0); HGB 7.2 gm/dL (11.4-16.0); Hypochromasia Marked; Lymphocytes # (A) 0.9 k/uL (1.0-4.8); Lymphocytes % (A) 3 %; MCH 20.8 pg (25.0-35.0); MCHC 27.9 g/dL (31.0-37.0); MCV 74.3 fL (80.0-100.0); Mean Platelet Volume 7.3; Microcytosis Moderate; Monocytes # (A) 0.9 k/uL (0-1.0); Monocytes % (A) 3 %; Neutrophils # (A) 27.3 k/uL (1.3-7.7); Neutrophils % (A) 93 %; Platelet Count 971 k/uL (150-450); RBC 3.46 m/uL (3.80-5.40); RDW 19.4 % (11.5-15.5); WBC 29.4 k/uL (3.8-10.6)
[2024-01-21 20:59] LABS: ALT 14 U/L (4-34); AST 27 U/L (14-36); African American GFR (CKD) 90 (>60 ml/min/1.73 sqM); Albumin 2.7 g/dL (3.5-5.0); Alkaline Phosphatase 129 U/L (38-126); Anion Gap 7 mmol/L; Blood Urea Nitrogen 43 mg/dL (7-17); Calcium 8.5 mg/dL (8.4-10.2); Carbon Dioxide 27 mmol/L (22-30); Chloride 94 mmol/L (98-107); Glucose 57 mg/dL (74-99); Lipase 11 U/L (23-300); Non-African American GFR(CKD) 78 (>60 ml/min/1.73 sqM); Potassium 5.4 mmol/L (3.5-5.1); Sodium 128 mmol/L (137-145); Total Bilirubin 0.5 mg/dL (0.2-1.3); Total Protein 5.9 g/dL (6.3-8.2)
[2024-01-21 21:29] LABS: C Reactive Protein 51.6 mg/dL (<1.0)
--- NOTE | 2024-01-21 22:23 | CT ---
EXAMINATION TYPE: CT pelvis w con DATE OF EXAM: 01/21/2024 COMPARISON: CT abdomen and pelvis April 20, 2017 HISTORY: sacral wound, concern for infection CT DLP: 937.3 mGycm Automated exposure control for dose reduction was used. CONTRAST: Performed with IV Contrast, patient injected with 100 ml mL of Isovue 300. FINDINGS: Metallic hardware from total left hip arthroplasty is now present, this causes streak artifact, limit ing evaluation of pelvic structures. There is ill-defined fluid and subcutaneous gas in the tissue po sterior to this. This correlates with patient's history of recent surgery for fracture at this level. Superior medial to this there is focal fluid with foci of air posterior to the lower sacrum measuring approximately 12 cm transversely axial image 30 x 2.0 cm AP diameter. This extends approximately 10 cm craniocaudal dimension sagittal image 72. Subcutaneous gas about the posterior margin of the sacru m without definitive bony destruction. Blurring of fat planes is noted. Central IUD in uterus redemonstrated. Peripheral fibroids are again seen. Sigmoid colonic diverticulo sis is present. Patient has very little internal fat. Moderate narrowing right hip joint is present. Urinary bladder is unremarkable. IMPRESSION: FAIRLY MODERATE-SIZED POSTERIOR SACRAL THIN-WALLED FLUID COLLECTION HAVING INTERNAL FOCI OF AIR WORRI SOME FOR ABSCESS DETAILED ABOVE. NO DEFINITIVE BONY DESTRUCTION TO SUGGEST ACUTE OSTEOMYELITIS BUT FLUID COLLECTION DOES ABUT THE POSTERIOR MARGIN OF THE LOWER SACRUM. [facility], , 01/21/2024 10:21 PM
[2024-01-21] MEDS ORDERED: VANCOMYCIN IV PER PHARMACY 1 EACH MISC MISCELLANE PRN (22:28)
[2024-01-21] MEDS ORDERED: NALOXONE 0.4 MG/ML 1 ML VIAL IV PRN (22:41)
--- NOTE | 2024-01-21 22:48 | ED ---
Wound/Laceration HPI - General Chief Complaint: Wound/Laceration Stated Complaint: Poss. infection Time Seen by Provider: 01/21/24 18:52 Source: patient, EMS, RN notes reviewed Mode of arrival: EMS Limitations: physical limitation - History of Present Illness Initial Comments: 78-year-old female sent from [facility] concern for possible sepsis. Patient has been having repeat labs which show an increasing white count left now up to 30. Patient has a severe sacral wound that they are concerned may be infected. Patient is having bilateral hip pain, she did have a recent left proximal femur periprosthetic fracture. Patient does admit to nausea, states that she takes Zofran daily. No vomiting. No chest pain or difficulty breathing. No abdominal pain. No fever. - Related Data Home Medications Medication Instructions Recorded Confirmed Simvastatin [Zocor] 40 mg PO HS 02/20/15 01/22/24 Montelukast Sodium [Singulair] 10 mg PO HS 03/01/16 01/22/24 Albuterol Sulfate [Ventolin HFA] 2 puff INHALATION RT-Q4H PRN 06/20/21 01/22/24 Ipratropium/Albuterol Sulfate 1 puff INHALATION RT-QID 06/20/21 01/22/24 [Combivent Respimat Inhaler] Omeprazole 20 mg PO DAILY 06/20/21 01/22/24 Sertraline [Zoloft] 200 mg PO DAILY 06/20/21 01/22/24 Acetaminophen [Tylenol Extra 1,000 mg PO Q6H PRN 11/08/21 01/22/24 Strength] Metoprolol Succinate (ER) [Toprol 50 mg PO DAILY 02/25/22 01/22/24 XL] Ipratropium-Albuterol Nebulize 3 ml INHALATION RT-Q6H PRN 02/21/23 01/22/24 [Duoneb 0.5 mg-3 mg/3 ml Soln] Ferrous Sulfate [Iron (65 MG 325 mg PO DAILY 01/07/24 01/22/24 Elemental)] Melatonin 10 mg PO HS 01/07/24 01/22/24 Mometasone/Formoterol [Dulera 200 2 puff INHALATION RT-BID 01/07/24 01/22/24 Mcg-5 Mcg Inhaler] lisinopriL [Zestril] 2.5 mg PO DAILY 01/07/24 01/22/24 ALPRAZolam [Xanax] 0.5 mg PO Q8H PRN 01/22/24 01/22/24 Aspirin EC [Ecotrin Low Dose] 81 mg PO DAILY 01/22/24 01/22/24 HYDROcodone/APAP 5-325MG [[place] 1 - 2 tab PO Q6HR PRN 01/22/24 01/22/24 5-325] Magnesium Hydroxide [Milk of 2,400 mg PO DAILY 01/22/24 01/22/24 Magnesia] Naloxone HCl [Narcan] 4 mg NASAL DIRECTED PRN 01/22/24 01/22/24 Ondansetron [Zofran] 4 mg PO Q6H PRN 01/22/24 01/22/24 Sulfamethox-Tmp 800-160Mg [Bactrim 1 tab PO Q12HR 01/22/24 01/22/24 DS 800-160 mg] Previous Rx's Medication Instructions Recorded Spironolactone [Aldactone] 25 mg PO DAILY #30 tab 12/28/21 Enoxaparin [Lovenox] 40 mg SQ DAILY each 01/10/24 Lactulose [Cephulac] 20 gm PO BID #240 ml 01/10/24 Sennosides [Senokot] 8.6 mg PO DAILY PRN tab 01/10/24 guaiFENesin [Mucinex] 600 mg PO Q12H PRN tab 01/10/24 polyethylene glycoL 3350 [Miralax] 17 gm PO DAILY #527 gm 01/10/24 Allergies Allergy/AdvReac Type Severity Reaction Status Date / Time No Known Allergies Allergy Verified 01/22/24 08:11 Review of Systems ROS Statement: Those systems with pertinent positive or pertinent negative responses have been documented in the HPI. ROS Other: All systems not noted in ROS Statement are negative. Past Medical History Past Medical History: Asthma, Chest Pain / Angina, COPD, GERD/Reflux, Hyperlip idemia, Hypertension, Pneumonia Additional Past Medical History / Comment(s): oxygen [place] @2L continuous, gallstones, pernicious anemia History of Any Multi-Drug Resistant Organisms: Other MDRO Past Surgical History: Hernia Repair, Joint Replacement, Orthopedic Surgery, Tonsillectomy Additional Past Surgical History / Comment(s): left elbow surgery, abscess in stomach area, abdominial scar tissue, tamie oophorectomy, left knee surgery, left hip replacement Past Anesthesia/Blood Transfusion Reactions: No Reported Reaction Past Psychological History: Anxiety, Depression Smoking Status: Former smoker Past Alcohol Use History: None Reported Past Drug Use History: None Reported - Past Family History Mother Family Medical History: No Reported History Additional Family Medical History / Comment(s): MS Father Family Medical History: CVA/TIA, Myocardial Infarction ([place]) Additional Family Medical History / Comment(s): ETOH General Exam Limitations: physical limitation General appearance: alert, in no apparent distress Head exam: Present: atraumatic, normocephalic, normal inspection Eye exam: Present: normal appearance, EOMI Neck exam: Present: normal inspection. Absent: meningismus Respiratory exam: Present: normal lung sounds bilaterally. Absent: respiratory distress, wheezes, rales, rhonchi, stridor Cardiovascular Exam: Present: regular rate, normal rhythm, normal heart sounds. Absent: systolic murmur, diastolic murmur, rubs, gallop, clicks GI/Abdominal exam: Present: soft. Absent: distended, tenderness, guarding, rebound, rigid Neurological exam: Present: alert, oriented X3 Psychiatric exam: Present: normal affect, normal mood Skin exam: Present: other (Large sacral wound) Course Vital Signs 01/21/24 01/21/24 01/21/24 18:44 22:05 22:35 Temperature 97.6 F Pulse Rate 96 96 107 H Respiratory 20 18 Rate Blood Pressure 106/63 97/62 O2 Sat by Pulse 96 96 Oximetry 01/21/24 01/22/24 01/22/24 22:51 02:30 04:15 Temperature Pulse Rate 88 104 H 108 H Respiratory 16 16 Rate Blood Pressure 93/49 102/65 O2 Sat by Pulse 96 100 Oximetry 01/22/24 01/22/24 01/22/24 06:21 07:22 12:00 Temperature 97.8 F 98.5 F Pulse Rate 109 H 84 104 H Respiratory 16 18 16 Rate Blood Pressure 98/85 104/53 98/52 O2 Sat by Pulse 98 97 100 Oximetry 01/22/24 01/22/24 16:18 17:39 Temperature 97.4 F L Pulse Rate 82 75 Respiratory 16 16 Rate Blood Pressure 94/63 101/61 O2 Sat by Pulse 98 97 Oximetry Medical Decision Making - Medical Decision Making Was pt. sent in by a medical professional or institution (, TRINI, MASTER STEAM YACHT, urgent care, hospital, or detention...) When possible be specific @ -senior care Did you speak to anyone other than the patient for history (EMS, parent, family, police, friend...)? What history was obtained from this source @ -No Did you review nursing and triage notes (agree or disagree)? Why? @ -I reviewed and agree with nursing and triage notes Were old charts reviewed (outside hosp., previous admission, EMS record, old EKG, old radiological studies, urgent care reports/EKG's, detention records)? Report findings @ -No old charts were reviewed Differential Diagnosis (chest pain, altered mental status, abdominal pain women, abdominal pain men, vaginal bleeding, weakness, fever, dyspnea, syncope, he adache, dizziness, GI bleed, back pain, seizure, CVA, palpatations, mental health, musculoskeletal)? @ -Differential includes sacral abscess, osteomyelitis, bacteremia, this is not an all-inclusive list EKG interpreted by me (3pts min.). @ -As above X-rays interpreted by me (1pt min.). @ -None done CT interpreted by me (1pt min.). @ -CT shows fairly moderate size posterior sacral thin-walled fluid collection having internal foci of air worrisome for abscess as detailed above. No definitive bony destruction to suggest acute osteomyelitis but fluid collection does abut the posterior margin of the lower sacrum U/S interpreted by me (1pt. min.). @ -None done What testing was considered but not performed or refused? (CT, X-rays, U/S, labs)? Why? @ -None What meds were considered but not given or refused? Why? @ -None Did you discuss the management of the patient with other professionals (professionals i.e. , TRINI, MASTER STEAM YACHT, lab, RT, psych nurse, social sciences lecturer, brake repairer railroad, teacher, navigating officer, disability case manager)? Give summary @ -I spoke with Dr. Vizcaino who accepts admission Was smoking cessation discussed for >3mins.? @ -No Was critical care preformed (if so, how long)? @ -No Were there social determinants of health that impacted care today? How? (Homelessness, low income, unemployed, alcoholism, drug addiction, transportation, low edu. Level, literacy, decrease access to med. care, senior living, rehab)? @ -No Was there de-escalation of care discussed even if they declined (Discuss DNR or withdrawal of care, Hospice)? DNR status @ -No What co-morbidities impacted this encounter? (DM, HTN, Smoking, COPD, CAD, Cancer, CVA, ARF, Chemo, Hep., AIDS, mental health diagnosis, sleep apnea, morbid obesity)? @ -None Was patient admitted / discharged? Hospital course, mention meds given and route, prescriptions, significant lab abnormalities, going to OR and other pertinent info. @ -78-year-old female sent from detention for possible sepsis. History and physical examination are conducted. WBC 29.4. Hemoglobin 7.2, this is consistent with the patient's recent values, she does have history of anemia. Sodium 128 potassium 5.4, patient does appear malnourished. She is receiving normal saline at a rate of 75 mL/h, received a bolus of 500 mL prior. Received albuterol for hyperkalemia. Glucose 57, patient is given food and drink and glucose goes up to 83. CRP 51.6. CT shows sacral abscess. Patient is started on Zosyn and vancomycin. Consults are placed for general surgery and infectious disease. Patient will be admitted, she is agreeable with this plan. I discussed this case with my attending Dr. nj Undiagnosed new problem with uncertain prognosis? @ -No Drug Therapy requiring intensive monitoring for toxicity (Heparin, Nitro, Insulin, Cardizem)? @ -No Were any procedures done? @ -No Diagnosis/symptom? @ -Sacral abscess, hyponatremia, hyperkalemia Acute, or Chronic, or Acute on Chronic? @ -Acute Uncomplicated (without systemic symptoms) or Complicated (systemic symptoms)? @ -Complicated Side effects of treatment? @ -No Exacerbation, Progression, or Severe Exacerbation? @ -No Poses a threat to life or bodily function? How? (Chest pain, USA, CT, pneumonia, PE, COPD, DKA, ARF, appy, cholecystitis, CVA, Diverticulitis, Homicidal, Suicidal, threat to staff... and all critical care pts) @ -Yes - Lab Data Result diagrams: 01/23/24 07:30 01/23/24 07:30 Lab Results 01/21/24 01/21/24 01/21/24 Range/Units 20:29 20:29 20:29 WBC 29.4 H (3.8-10.6) k/uL RBC 3.46 L (3.80-5.40) m/uL Hgb 7.2 L (11.4-16.0) gm/dL Hct 25.7 L (34.0-46.0) % MCV 74.3 L (80.0-100.0) fL MCH 20.8 L (25.0-35.0) pg MCHC 27.9 L (31.0-37.0) g/dL RDW 19.4 H (11.5-15.5) % Plt Count 971 H (150-450) k/uL MPV 7.3 Neutrophils % 93 % Lymphocytes % 3 % Monocytes % 3 % Eosinophils % 0 % Basophils % 0 % Neutrophils # 27.3 H (1.3-7.7) k/uL Lymphocytes # 0.9 L (1.0-4.8) k/uL Monocytes # 0.9 (0-1.0) k/uL Eosinophils # 0.1 (0-0.7) k/uL Basophils # 0.0 (0-0.2) k/uL Hypochromasia Marked Anisocytosis Slight Microcytosis Moderate ESR >130 H (0-30) mm/Hr Sodium 128 L (137-145) mmol/L Potassium 5.4 H (3.5-5.1) mmol/L Chloride 94 L (98-107) mmol/L Carbon Dioxide 27 (22-30) mmol/L Anion Gap 7 mmol/L BUN 43 H (7-17) mg/dL Creatinine 0.75 (0.52-1.04) mg/dL Est GFR (CKD-EPI)AfAm 90 (>60 ml/min/1.73 sqM) Est GFR (CKD-EPI)NonAf 78 (>60 ml/min/1.73 sqM) Glucose 57 L (74-99) mg/dL Plasma Lactic Acid Jarett 1.5 (0.7-2.0) mmol/L Calcium 8.5 (8.4-10.2) mg/dL Total Bilirubin 0.5 (0.2-1.3) mg/dL AST 27 (14-36) U/L ALT 14 (4-34) U/L Alkaline Phosphatase 129 H (38-126) U/L C-Reactive Protein 51.6 H (<1.0) mg/dL Total Protein 5.9 L (6.3-8.2) g/dL Albumin 2.7 L (3.5-5.0) g/dL Lipase 11 L (23-300) U/L Disposition Clinical Impression: Abscess of sacrum, Hyponatremia, Hyperkalemia Disposition: ADMITTED IP TO THIS [facility] Condition: Serious Time of Disposition: 22:48
[2024-01-21] MEDS: ALBUTEROL NEB (CONC) 2.5 MG/0.5 ML INHALATION ONE (22:50)
[2024-01-21 22:56] LABS: Glucose,Whole Blood 83 mg/dL (70-110)
[2024-01-21] MEDS: SODIUM CHLORIDE 0.9% 1,000 ML IV SCH (23:23)
[2024-01-21] MEDS: PIPERACILLIN-TAZOBACTAM 3.375 GM in SODIUM CHLORIDE 0.9% 100 ML IVPB STA (23:25)
[2024-01-22] MEDS: VANCOMYCIN 750 MG in SODIUM CHLORIDE 0.9% 250 ML IVPB SCH (00:46)
[2024-01-22] MEDS: HYDROcodone/APAP 5-325MG 1 EACH TAB PO PRN (02:24)
[2024-01-22 04:07] LABS: Glucose,Whole Blood 82 mg/dL (70-110)
[2024-01-22 04:36] LABS: Erythrocyte Sedimentation Rate >130 mm/Hr (0-30)
[2024-01-22 06:18] LABS: Appearance,Urine Clear (Clear); Bilirubin,Urine Negative (Negative); Blood,Urine Negative (Negative); Color,Urine Light Yellow; Glucose,Urine (UA) Negative (Negative); Ketones,Urine Negative (Negative); Leukocyte Esterase,Urine Negative (Negative); Nitrite,Urine Negative (Negative); Protein,Urine Negative (Negative); Urobilinogen,Urine <2.0 mg/dL (<2.0)
[2024-01-22 07:29] LABS: Glucose,Whole Blood 77 mg/dL (70-110)
[2024-01-22] MEDS: DEXTROSE 50% SYRINGE 50 ML IVP STA (08:40)
[2024-01-22] MEDS: INSULIN REGULAR 100 UNIT/ML VIAL (IV) IV ONE (08:40)
[2024-01-22] MEDS: CALCIUM GLUCONATE IN NACL 1 GM in SALINE 1 100ML.BAG IVPB ONE (08:54)
[2024-01-22 11:04] LABS: ALT 13 U/L (4-34); AST 25 U/L (14-36); African American GFR (CKD) >90 (>60 ml/min/1.73 sqM); Albumin 2.3 g/dL (3.5-5.0); Alkaline Phosphatase 115 U/L (38-126); Anion Gap 5 mmol/L; Blood Urea Nitrogen 39 mg/dL (7-17); Calcium 8.2 mg/dL (8.4-10.2); Carbon Dioxide 24 mmol/L (22-30); Chloride 101 mmol/L (98-107); Glucose 74 mg/dL (74-99); Non-African American GFR(CKD) 82 (>60 ml/min/1.73 sqM); Sodium 130 mmol/L (137-145); Total Bilirubin 0.4 mg/dL (0.2-1.3); Total Protein 5.2 g/dL (6.3-8.2)
--- NOTE | 2024-01-22 11:08 | P.GSCN ---
History of Present Illness Consult date: 01/22/24 History of present illness: CHIEF COMPLAINT: Sacral wound HISTORY OF PRESENT ILLNESS: This is a 78-year-old female who [facility] the [facility] due to an elevated white count. Patient has a severe sacral wound that they were concerned may be infected. CT scan abdomen pelvis reports fairly moderate size posterior sacral thin-walled fluid collection. Having internal foci of air worrisome for abscess. No definitive bony destruction to suggest osteomyelitis. Patient does report some discomfort in the sacral area. Reports never having debridement performed. Denies any history of diabetes. PAST MEDICAL HISTORY: Asthma, Chest Pain / Angina, COPD, GERD/Reflux, Hyperlipidemia, Hypertension, Pneumonia, oxygen [place] @2L continuous, gallstones, pernicious anemia, PAST SURGICAL HISTORY: Hernia Repair, Joint Replacement, Orthopedic Surgery, Tonsillectomy, left elbow surgery, abscess in stomach area, abdominial scar tissue, tamie oophorectomy, left knee surgery, left hip replacement MEDICATIONS: See below ALLERGIES: See below SOCIAL HISTORY: No illicit drug use. REVIEW OF SYSTEMS: CONSTITUTIONAL: Denies fever or chills. HEENT: Denies blurred vision, vision changes, or eye pain. Denies hemoptysis CARDIOVASCULAR: Denies chest pain or pressure. RESPIRATORY: No shortness of breath. GASTROINTESTINAL: See HPI for pertinent findings HEMATOLOGIC: Denies bleeding disorders. GENITOURINARY: Denies any blood in urine or increased urinary frequency. SKIN: Denies pruitis. Denies rash. PHYSICAL EXAM: VITAL SIGNS: Reviewed GENERAL: Well-developed in no acute distress. HEENT: No sclera icterus. Extraocular movements grossly intact. Moist buccal mucosa. Head is atraumatic, normocephalic. No nasal drainage. ABDOMEN: Soft. Nondistended. Nontender NEUROLOGIC: Alert and oriented. Cranial nerves II through XII grossly intact. Buttocks: Large sacral decubitus ulcer with slough, necrotic tissue, minimal drainage noted on dressing. LABORATORY DATA: WBC 29.4 Hgb 7.2 platelets 971 Sodium 128 up to 130 potassium 5.9 down to 5.0 creatinine 0.72 Lactic acid 1.5 IMAGING: CT scan findings as stated above ASSESSMENT: 1. Sacral decubitus ulcer with CT scan findings of fluid collection at the sacrum 2. Hyperkalemia 3. Hyponatremia PLAN: -Patient scheduled for debridement of sacral decubitus ulcer today with Dr. Steen -Tamar patient n.p.o. -Medicine service has corrected the hyperkalemia Physician Library Manager note has been reviewed by physician. Signing provider agrees with the documented findings, assessment, and plan of care. Past Medical History Past Medical History: Asthma, Chest Pain / Angina, COPD, GERD/Reflux, Hyperlipidemia, Hypertension, Pneumonia Additional Past Medical History / Comment(s): oxygen [place] @2L continuous, gallstones, pernicious anemia History of Any Multi-Drug Resistant Organisms: Other MDRO Past Surgical History: Hernia Repair, Joint Replacement, Orthopedic Surgery, Tonsillectomy Additional Past Surgical History / Comment(s): left elbow surgery, abscess in stomach area, abdominial scar tissue, tamie oophorectomy, left knee surgery, left hip replacement Past Anesthesia/Blood Transfusion Reactions: No Reported Reaction Past Psychological History: Anxiety, Depression Smoking Status: Former smoker Past Alcohol Use History: None Reported Past Drug Use History: None Reported - Past Family History Mother Family Medical History: No Reported History Additional Family Medical History / Comment(s): MS Father Family Medical History: CVA/TIA, Myocardial Infarction ([place]) Additional Family Medical History / Comment(s): ETOH Medications and Allergies Home Medications Medication Instructions Recorded Confirmed Type Simvastatin [Zocor] 40 mg PO HS 02/20/15 01/22/24 History Montelukast Sodium [Singulair] 10 mg PO HS 03/01/16 01/22/24 History Albuterol Sulfate [Ventolin HFA] 2 puff INHALATION RT-Q4H PRN 06/20/21 01/22/24 History Ipratropium/Albuterol Sulfate 1 puff INHALATION RT-QID 06/20/21 01/22/24 History [Combivent Respimat Inhaler] Omeprazole 20 mg PO DAILY 06/20/21 01/22/24 History Sertraline [Zoloft] 200 mg PO DAILY 06/20/21 01/22/24 History Acetaminophen [Tylenol Extra 1,000 mg PO Q6H PRN 11/08/21 01/22/24 History Strength] Spironolactone [Aldactone] 25 mg PO DAILY #30 tab 12/28/21 01/22/24 Rx Metoprolol Succinate (ER) [Toprol 50 mg PO DAILY 02/25/22 01/22/24 History XL] Ipratropium-Albuterol Nebulize 3 ml INHALATION RT-Q6H PRN 02/21/23 01/22/24 History [Duoneb 0.5 mg-3 mg/3 ml Soln] Ferrous Sulfate [Iron (65 MG 325 mg PO DAILY 01/07/24 01/22/24 History Elemental)] Melatonin 10 mg PO HS 01/07/24 01/22/24 History Mometasone/Formoterol [Dulera 200 2 puff INHALATION RT-BID 01/07/24 01/22/24 History Mcg-5 Mcg Inhaler] lisinopriL [Zestril] 2.5 mg PO DAILY 01/07/24 01/22/24 History Enoxaparin [Lovenox] 40 mg SQ DAILY each 01/10/24 01/22/24 Rx Lactulose [Cephulac] 20 gm PO BID #240 ml 01/10/24 01/22/24 Rx Sennosides [Senokot] 8.6 mg PO DAILY PRN tab 01/10/24 01/22/24 Rx guaiFENesin [Mucinex] 600 mg PO Q12H PRN tab 01/10/24 01/22/24 Rx polyethylene glycoL 3350 [Miralax] 17 gm PO DAILY #527 gm 01/10/24 01/22/24 Rx ALPRAZolam [Xanax] 0.5 mg PO Q8H PRN 01/22/24 01/22/24 History Aspirin EC [Ecotrin Low Dose] 81 mg PO DAILY 01/22/24 01/22/24 History HYDROcodone/APAP 5-325MG [[place] 1 - 2 tab PO Q6HR PRN 01/22/24 01/22/24 History 5-325] Magnesium Hydroxide [Milk of 2,400 mg PO DAILY 01/22/24 01/22/24 History Magnesia] Naloxone HCl [Narcan] 4 mg NASAL DIRECTED PRN 01/22/24 01/22/24 History Ondansetron [Zofran] 4 mg PO Q6H PRN 01/22/24 01/22/24 History Sulfamethox-Tmp 800-160Mg [Bactrim 1 tab PO Q12HR 01/22/24 01/22/24 History DS 800-160 mg] Allergies Allergy/AdvReac Type Severity Reaction Status Date / Time No Known Allergies Allergy Verified 01/22/24 08:11 Surgical - Exam Vital Signs Temp Pulse Resp BP Pulse Ox 97.6 F 96 20 106/63 96 01/21/24 18:44 01/21/24 18:44 01/21/24 18:44 01/21/24 18:44 01/21/24 18:44 Results - Labs 01/21/24 20:29 01/22/24 02:52 Abnormal Lab Results - Last 24 Hours (Table) 01/21/24 01/21/24 01/22/24 Range/Units 20:29 20:29 02:52 WBC 29.4 H (3.8-10.6) k/uL RBC 3.46 L (3.80-5.40) m/uL Hgb 7.2 L (11.4-16.0) gm/dL Hct 25.7 L (34.0-46.0) % MCV 74.3 L (80.0-100.0) fL MCH 20.8 L (25.0-35.0) pg MCHC 27.9 L (31.0-37.0) g/dL RDW 19.4 H (11.5-15.5) % Plt Count 971 H (150-450) k/uL Neutrophils # 27.3 H (1.3-7.7) k/uL Lymphocytes # 0.9 L (1.0-4.8) k/uL ESR >130 H (0-30) mm/Hr Sodium 128 L (137-145) mmol/L Potassium 5.4 H 5.9 H (3.5-5.1) mmol/L Chloride 94 L (98-107) mmol/L BUN 43 H (7-17) mg/dL Glucose 57 L (74-99) mg/dL Alkaline Phosphatase 129 H (38-126) U/L C-Reactive Protein 51.6 H (<1.0) mg/dL Total Protein 5.9 L (6.3-8.2) g/dL Albumin 2.7 L (3.5-5.0) g/dL Lipase 11 L (23-300) U/L Ur Specific [place] (1.001-1.035) 01/22/24 Range/Units 06:02 WBC (3.8-10.6) k/uL RBC (3.80-5.40) m/uL Hgb (11.4-16.0) gm/dL Hct (34.0-46.0) % MCV (80.0-100.0) fL MCH (25.0-35.0) pg MCHC (31.0-37.0) g/dL RDW (11.5-15.5) % Plt Count (150-450) k/uL Neutrophils # (1.3-7.7) k/uL Lymphocytes # (1.0-4.8) k/uL ESR (0-30) mm/Hr Sodium (137-145) mmol/L Potassium (3.5-5.1) mmol/L Chloride (98-107) mmol/L BUN (7-17) mg/dL Glucose (74-99) mg/dL Alkaline Phosphatase (38-126) U/L C-Reactive Protein (<1.0) mg/dL Total Protein (6.3-8.2) g/dL Albumin (3.5-5.0) g/dL Lipase (23-300) U/L Ur Specific [place] 1.050 H (1.001-1.035) Diabetes panel 01/21/24 01/22/24 Range/Units 20:29 02:52 Sodium 128 L (137-145) mmol/L Potassium 5.4 H 5.9 H (3.5-5.1) mmol/L Chloride 94 L (98-107) mmol/L Carbon Dioxide 27 (22-30) mmol/L BUN 43 H (7-17) mg/dL Creatinine 0.75 (0.52-1.04) mg/dL Glucose 57 L (74-99) mg/dL Calcium 8.5 (8.4-10.2) mg/dL AST 27 (14-36) U/L ALT 14 (4-34) U/L Alkaline Phosphatase 129 H (38-126) U/L Total Protein 5.9 L (6.3-8.2) g/dL Albumin 2.7 L (3.5-5.0) g/dL Calcium panel 01/21/24 Range/Units 20:29 Calcium 8.5 (8.4-10.2) mg/dL Albumin 2.7 L (3.5-5.0) g/dL Pituitary panel 01/21/24 01/22/24 Range/Units 20:29 02:52 Sodium 128 L (137-145) mmol/L Potassium 5.4 H 5.9 H (3.5-5.1) mmol/L Chloride 94 L (98-107) mmol/L Carbon Dioxide 27 (22-30) mmol/L BUN 43 H (7-17) mg/dL Creatinine 0.75 (0.52-1.04) mg/dL Glucose 57 L (74-99) mg/dL Calcium 8.5 (8.4-10.2) mg/dL Adrenal panel 01/21/24 01/22/24 Range/Units 20:29 02:52 Sodium 128 L (137-145) mmol/L Potassium 5.4 H 5.9 H (3.5-5.1) mmol/L Chloride 94 L (98-107) mmol/L Carbon Dioxide 27 (22-30) mmol/L BUN 43 H (7-17) mg/dL Creatinine 0.75 (0.52-1.04) mg/dL Glucose 57 L (74-99) mg/dL Calcium 8.5 (8.4-10.2) mg/dL Total Bilirubin 0.5 (0.2-1.3) mg/dL AST 27 (14-36) U/L ALT 14 (4-34) U/L Alkaline Phosphatase 129 H (38-126) U/L Total Protein 5.9 L (6.3-8.2) g/dL Albumin 2.7 L (3.5-5.0) g/dL
[2024-01-22] MEDS: SODIUM FERRIC GLUCONAT-SUCROSE 125 MG in SODIUM CHLORIDE 0.9% 100 ML IVPB ONE (12:33)
[2024-01-22] MEDS ORDERED: ALBUTEROL NEBULIZED 2.5 MG/3 ML INHALATION PRN (12:47)
--- NOTE | 2024-01-22 13:14 | P.HPIM ---
History of Present Illness H&P Date: 01/22/24 Chief Complaint: sacral wound Patient is a 78 year old female with past medical history of asthma, CAD, COPD, GERD, hyperlipidemia, hypertension, history of SVT and a recent left proximal femur periprosthetic fracture presented to the ED from her long-term due to elevated white blood cell count. Patient has a severe sacral wound since 1 week. Patient mentions she was admitted in the hospital recently for a left proximal femur periprosthetic fracture that was managed conservatively. She does complain of pain on her hips that isn't getting better. Upon discharge from the hospital she went to the long-term for rehabilitation. She mentions not having good strength, which is why she is lying in the bed most of the day. Two days ago when she tried to ambulate using the walker she had a fall. She fell prone, didn't lose consciousness but mentions hitting her head. She was not able to get up on her own and was lying on the floor for 1 hour before she had help francisco ilable. Addtionally, she states using 2L oxygen at home throughout the day. She also reports having shortness of breath, coughing with dark green phlegm production and constipation for which she usually take MiraLAX at home. Denies fever, chills, chest pain, abdominal pain, nausea, vomiting, dysuria, hematuria, hematochezia, melena, headache, blurry vision, double vision, slurring of speech. ED documentation reviewed. In the ED patient was treated with nebulizer milligram, dextrose, [place], insulin, ondansetron, Zosyn, 0.9 normal saline, calcium gluconate. Vitals on admission T 97.6 F, FL 96 bpm, RR 20, BP 106/63, O2 sat 96% on 3 L nasal cannula EKG independently interpreted as sinus rhythm, rate 95 bpm, QTc [address] shows fairly moderate-sized posterior sacral thin-walled fluid c ollection having internal foci of air worrisome for abscess, No definitive bony destruction to suggest acute osteomyelitis but fluid collection does abut posterior margin of the lower sacrum Labs on admission show WBC 29.4, hemoglobin 7.2, hematocrit 25.7, MCV 74.3, RDW 19.4, platelet count 971, ESR more than 130, sodium 128, potassium 5.4, BUN 43, creatinine 0.75, ALP 129, CRP 51.6, lipase 11, lactic acid 1.5, glucose 57 UA shows specific gravity 1.050 Review of systems: Pertinent positives and negatives as discussed in HPI, a complete review of systems was performed and all other systems are negative. PMH: Asthma, CAD, COPD, GERD, hyperlipidemia, hypertension, history of SVT PSH: Hernia repair, joint replacement, orthopedic surgery FMH: CVA/TIA, MT Allergies: None Social history: Tobacco: Former smoker Alcohol: Denies use Recreational drugs: Denies use Travel: No recent travel history Sick contacts: None Physical examination: Vital signs reviewed General: nontoxic, no distress, appears at stated age Derm: warm, dry, intact Head: atraumatic, normocephalic, symmetric Eyes: EOMI, anicteric sclera Mouth: no lip lesion, mucus membranes moist Cardiovascular: S1 S2 reg, no murmur Lungs: CTA bilateral, no rhonchi, no rales, no accessory muscle use Abdominal: soft, non-tender to palpation Extremities: No cyanosis, clubbing, or pedal edema. Neuro: Alert, Oriented, 4/5 in all 4 extremities Psych: well appearing, appropriate affect Assessment/Plan: Patient is a 78 year old female with PMH of asthma, CAD, COPD, GERD, hyperlipi demia, hypertension, history of SVT and a recent left proximal femur periprosthetic fracture presented to the ED with sacral wound. She has been admitted for sacral decubitus ulcer and is scheduled for a debridement tomorrow. Active: #. Sacral decubitus ulcer SIRS criteria, WBC 29.4, P 107, RR 20, BP 98/[address] shows fairly moderate-sized posterior sacral thin-walled fluid collection having internal foci of air worrisome for abscess, No definitive bony destruction to suggest acute osteomyelitis but fluid collection does abut posterior margin of the lower sacrum Continue Vancomycin 750 mg IVPB Q24HR Continue acetaminophemn 650 mg Q6HR PRN and [place] 5-325 Q4HR PRN for pain management Hold home meds Lisinopril and Aldactone Scheduled for debridement of the ulcer tomorrow General surgery is following # Microcytic anemia Ferrlecit 125 mg IVPB once ordered today #. Nausea and vomiting Continue ondansetron 4 mg IVP Q8HR PRN #. Hyperkalemia, resolved Calcium gluconate, nebulised albuterol, Insulin 10 units IV once in the ED Monitor BMP Chronic: #. COPD, not in exacerbartion Continue supplemental oxygen, currently at 3L via nasal cannula Continue Albuterol 2 puff Q4H PRN, Duoneb Q6H PRN, Singulair 10 mg PO HS #. GERD Continue Omeprazole 20 mg PO daily #. Anxiety/Depression Continue Sertraline 200 mg PO daily #. Hyperlipidemia Continue Simvastatin 40 mg PO HS F: 0.9 normal saline at 75 ml/hr E: Replete as required N: NPO after midnight A: GI prophylaxis: Omeprazole 20 mg PO daily The patient is admitted with an anticipated more than 2 midnight stay for evaluation of sacral wound CODE STATUS: No Code Discussed with: Patient Anticipated discharge place: Detention Past Medical History Past Medical History: Asthma, Chest Pain / Angina, COPD, GERD/Reflux, Hyperlipidemia, Hypertension, Pneumonia Additional Past Medical History / Comment(s): oxygen [place] @2L continuous, gallstones, pernicious anemia History of Any Multi-Drug Resistant Organisms: Other MDRO Past Surgical History: Hernia Repair, Joint Replacement, Orthopedic Surgery, Tonsillectomy Additional Past Surgical History / Comment(s): left elbow surgery, abscess in stomach area, abdominial scar tissue, tamie oophorectomy, left knee surgery, left hip replacement Past Anesthesia/Blood Transfusion Reactions: No Reported Reaction Past Psychological History: Anxiety, Depression Smoking Status: Former smoker Past Alcohol Use History: None Reported Past Drug Use History: None Reported - Past Family History Mother Family Medical History: No Reported History Additional Family Medical History / Comment(s): MS Father Family Medical History: CVA/TIA, Myocardial Infarction ([place]) Additional Family Medical History / Comment(s): ETOH Medications and Allergies Home Medications Medication Instructions Recorded Confirmed Type Simvastatin [Zocor] 40 mg PO HS 02/20/15 01/22/24 History Montelukast Sodium [Singulair] 10 mg PO HS 03/01/16 01/22/24 History Albuterol Sulfate [Ventolin HFA] 2 puff INHALATION RT-Q4H PRN 06/20/21 01/22/24 History Ipratropium/Albuterol Sulfate 1 puff INHALATION RT-QID 06/20/21 01/22/24 History [Combivent Respimat Inhaler] Omeprazole 20 mg PO DAILY 06/20/21 01/22/24 History Sertraline [Zoloft] 200 mg PO DAILY 06/20/21 01/22/24 History Acetaminophen [Tylenol Extra 1,000 mg PO Q6H PRN 11/08/21 01/22/24 History Strength] Spironolactone [Aldactone] 25 mg PO DAILY #30 tab 12/28/21 01/22/24 Rx Metoprolol Succinate (ER) [Toprol 50 mg PO DAILY 02/25/22 01/22/24 History XL] Ipratropium-Albuterol Nebulize 3 ml INHALATION RT-Q6H PRN 02/21/23 01/22/24 History [Duoneb 0.5 mg-3 mg/3 ml Soln] Ferrous Sulfate [Iron (65 MG 325 mg PO DAILY 01/07/24 01/22/24 History Elemental)] Melatonin 10 mg PO HS 01/07/24 01/22/24 History Mometasone/Formoterol [Dulera 200 2 puff INHALATION RT-BID 01/07/24 01/22/24 History Mcg-5 Mcg Inhaler] lisinopriL [Zestril] 2.5 mg PO DAILY 01/07/24 01/22/24 History Enoxaparin [Lovenox] 40 mg SQ DAILY each 01/10/24 01/22/24 Rx Lactulose [Cephulac] 20 gm PO BID #240 ml 01/10/24 01/22/24 Rx Sennosides [Senokot] 8.6 mg PO DAILY PRN tab 01/10/24 01/22/24 Rx guaiFENesin [Mucinex] 600 mg PO Q12H PRN tab 01/10/24 01/22/24 Rx polyethylene glycoL 3350 [Miralax] 17 gm PO DAILY #527 gm 01/10/24 01/22/24 Rx ALPRAZolam [Xanax] 0.5 mg PO Q8H PRN 01/22/24 01/22/24 History Aspirin EC [Ecotrin Low Dose] 81 mg PO DAILY 01/22/24 01/22/24 History HYDROcodone/APAP 5-325MG [[place] 1 - 2 tab PO Q6HR PRN 01/22/24 01/22/24 History 5-325] Magnesium Hydroxide [Milk of 2,400 mg PO DAILY 01/22/24 01/22/24 History Magnesia] Naloxone HCl [Narcan] 4 mg NASAL DIRECTED PRN 01/22/24 01/22/24 History Ondansetron [Zofran] 4 mg PO Q6H PRN 01/22/24 01/22/24 History Sulfamethox-Tmp 800-160Mg [Bactrim 1 tab PO Q12HR 01/22/24 01/22/24 History DS 800-160 mg] Allergies Allergy/AdvReac Type Severity Reaction Status Date / Time No Known Allergies Allergy Verified 01/22/24 08:11 Physical Exam Vitals: Vital Signs Temp Pulse Resp BP Pulse Ox 01/22/24 07:22 98.5 F 84 18 104/53 97 01/22/24 06:21 97.8 F 109 H 16 98/85 98 01/22/24 04:15 108 H 16 102/65 100 01/22/24 02:30 104 H 16 93/49 96 01/21/24 22:51 88 01/21/24 22:35 107 H 18 97/62 96 01/21/24 22:05 96 01/21/24 18:44 97.6 F 96 20 106/63 96 Intake and Output 01/21/24 01/22/24 01/22/24 22:59 06:59 14:59 Other: Weight 45.813 kg Results CBC & Chem 7: 01/21/24 20:29 01/22/24 10:27 Labs: Abnormal Lab Results - Last 24 Hours (Table) 01/21/24 01/21/24 01/22/24 Range/Units 20:29 20:29 02:52 WBC 29.4 H (3.8-10.6) k/uL RBC 3.46 L (3.80-5.40) m/uL Hgb 7.2 L (11.4-16.0) gm/dL Hct 25.7 L (34.0-46.0) % MCV 74.3 L (80.0-100.0) fL MCH 20.8 L (25.0-35.0) pg MCHC 27.9 L (31.0-37.0) g/dL RDW 19.4 H (11.5-15.5) % Plt Count 971 H (150-450) k/uL Neutrophils # 27.3 H (1.3-7.7) k/uL Lymphocytes # 0.9 L (1.0-4.8) k/uL ESR >130 H (0-30) mm/Hr Sodium 128 L (137-145) mmol/L Potassium 5.4 H 5.9 H (3.5-5.1) mmol/L Chloride 94 L (98-107) mmol/L BUN 43 H (7-17) mg/dL Glucose 57 L (74-99) mg/dL Alkaline Phosphatase 129 H (38-126) U/L C-Reactive Protein 51.6 H (<1.0) mg/dL Total Protein 5.9 L (6.3-8.2) g/dL Albumin 2.7 L (3.5-5.0) g/dL Lipase 11 L (23-300) U/L Ur Specific [place] (1.001-1.035) 01/22/24 Range/Units 06:02 WBC (3.8-10.6) k/uL RBC (3.80-5.40) m/uL Hgb (11.4-16.0) gm/dL Hct (34.0-46.0) % MCV (80.0-100.0) fL MCH (25.0-35.0) pg MCHC (31.0-37.0) g/dL RDW (11.5-15.5) % Plt Count (150-450) k/uL Neutrophils # (1.3-7.7) k/uL Lymphocytes # (1.0-4.8) k/uL ESR (0-30) mm/Hr Sodium (137-145) mmol/L Potassium (3.5-5.1) mmol/L Chloride (98-107) mmol/L BUN (7-17) mg/dL Glucose (74-99) mg/dL Alkaline Phosphatase (38-126) U/L C-Reactive Protein (<1.0) mg/dL Total Protein (6.3-8.2) g/dL Albumin (3.5-5.0) g/dL Lipase (23-300) U/L Ur Specific [place] 1.050 H (1.001-1.035)
[2024-01-22] MEDS: AMPICILLIN-SULBACTAM 3 GM in SODIUM CHLORIDE 0.9% 100 ML IVPB SCH (14:03)
[2024-01-22 16:15] LABS: Anisocytosis Slight; Basophils % (A) 0 %; Eosinophils # (A) 0.1 k/uL (0-0.7); Eosinophils % (A) 0 %; HCT 25.6 % (34.0-46.0); HGB 7.1 gm/dL (11.4-16.0); Hypochromasia Marked; Lymphocytes # (A) 0.6 k/uL (1.0-4.8); Lymphocytes % (A) 2 %; MCH 21.5 pg (25.0-35.0); MCHC 27.6 g/dL (31.0-37.0); MCV 77.9 fL (80.0-100.0); Mean Platelet Volume 6.8; Microcytosis Moderate; Monocytes # (A) 0.5 k/uL (0-1.0); Monocytes % (A) 2 %; Neutrophils # (A) 30.2 k/uL (1.3-7.7); Neutrophils % (A) 96 %; Platelet Count 780 k/uL (150-450); RBC 3.29 m/uL (3.80-5.40); RDW 19.6 % (11.5-15.5); WBC 31.5 k/uL (3.8-10.6)
[2024-01-22 17:11] LABS: Target Cells Present
--- NOTE | 2024-01-22 21:09 | P.CONS ---
History of Present Illness - Reason for Consult Consult date: 01/22/24 Abscess of the bedsore Requesting physician: Terrance Butler - Chief Complaint Worsening pain to the sacral wound and elevated white count x days - History of Present Illness Patient is a 78-year-old female with a past medical history significant for hypertension hyperlipidemia pneumonia COPD asthma patient is a halfway resident and the patient has been sent to the ER concerning for possible sepsis as the patient was noted to have elevated white count of 30 and did have a sacral wound apparently seem to be getting worse patient has send not a very good historian as she mentioned sacral wound has been going on for about a week patient be complaining of pain to the sacral wound need to be sharp moderate intensity without radiation patient denies high-grade fever or any chills on presentation to the hospital the patient was afebrile and no fever tabares ve been ordered subsequently patient was tachycardic mildly hypertensive and hypoxic requiring supplemental oxygen patient did have white count of 31.5 with a left shift creatinine 0.72 electrolytes are normal liver enzymes are normal urine is negative influenza RSV COVID testing has been negative patient did have a pelvis CT we did shows a fairly moderate size posterior sacral thin-walled fluid collection concerning for an abscess and no bony abnormality patient was started on vancomycin infectious disease was consulted for further management of antibiotic therapy Review of Systems Positive point and negatives has been mentioned in the HPI, complete review of systems was performed and all other systems are negative Past Medical History Past Medical History: Asthma, Chest Pain / Angina, COPD, GERD/Reflux, Hyperlipidemia, Hypertension, Pneumonia Additional Past Medical History / Comment(s): oxygen [place] @2L continuous, gallstones, pernicious anemia History of Any Multi-Drug Resistant Organisms: Other MDRO Past Surgical History: Hernia Repair, Joint Replacement, Orthopedic Surgery, Tonsillectomy Additional Past Surgical History / Comment(s): left elbow surgery, abscess in stomach area, abdominial scar tissue, tamie oophorectomy, left knee surgery, left hip replacement Past Anesthesia/Blood Transfusion Reactions: No Reported Reaction Past Psychological History: Anxiety, Depression Smoking Status: Former smoker Past Alcohol Use History: None Reported Past Drug Use History: None Reported - Past Family History Mother Family Medical History: No Reported History Additional Family Medical History / Comment(s): MS Father Family Medical History: CVA/TIA, Myocardial Infarction ([place]) Additional Family Medical History / Comment(s): ETOH Medications and Allergies Home Medications Medication Instructions Recorded Confirmed Type Simvastatin [Zocor] 40 mg PO HS 02/20/15 01/22/24 History Montelukast Sodium [Singulair] 10 mg PO HS 03/01/16 01/22/24 History Albuterol Sulfate [Ventolin HFA] 2 puff INHALATION RT-Q4H PRN 06/20/21 01/22/24 History Ipratropium/Albuterol Sulfate 1 puff INHALATION RT-QID 06/20/21 01/22/24 History [Combivent Respimat Inhaler] Omeprazole 20 mg PO DAILY 06/20/21 01/22/24 History Sertraline [Zoloft] 200 mg PO DAILY 06/20/21 01/22/24 History Acetaminophen [Tylenol Extra 1,000 mg PO Q6H PRN 11/08/21 01/22/24 History Strength] Spironolactone [Aldactone] 25 mg PO DAILY #30 tab 12/28/21 01/22/24 Rx Metoprolol Succinate (ER) [Toprol 50 mg PO DAILY 02/25/22 01/22/24 History XL] Ipratropium-Albuterol Nebulize 3 ml INHALATION RT-Q6H PRN 02/21/23 01/22/24 History [Duoneb 0.5 mg-3 mg/3 ml Soln] Ferrous Sulfate [Iron (65 MG 325 mg PO DAILY 01/07/24 01/22/24 History Elemental)] Melatonin 10 mg PO HS 01/07/24 01/22/24 History Mometasone/Formoterol [Dulera 200 2 puff INHALATION RT-BID 01/07/24 01/22/24 History Mcg-5 Mcg Inhaler] lisinopriL [Zestril] 2.5 mg PO DAILY 01/07/24 01/22/24 History Enoxaparin [Lovenox] 40 mg SQ DAILY each 01/10/24 01/22/24 Rx Lactulose [Cephulac] 20 gm PO BID #240 ml 01/10/24 01/22/24 Rx Sennosides [Senokot] 8.6 mg PO DAILY PRN tab 01/10/24 01/22/24 Rx guaiFENesin [Mucinex] 600 mg PO Q12H PRN tab 01/10/24 01/22/24 Rx polyethylene glycoL 3350 [Miralax] 17 gm PO DAILY #527 gm 01/10/24 01/22/24 Rx ALPRAZolam [Xanax] 0.5 mg PO Q8H PRN 01/22/24 01/22/24 History Aspirin EC [Ecotrin Low Dose] 81 mg PO DAILY 01/22/24 01/22/24 History HYDROcodone/APAP 5-325MG [[place] 1 - 2 tab PO Q6HR PRN 01/22/24 01/22/24 History 5-325] Magnesium Hydroxide [Milk of 2,400 mg PO DAILY 01/22/24 01/22/24 History Magnesia] Naloxone HCl [Narcan] 4 mg NASAL DIRECTED PRN 01/22/24 01/22/24 History Ondansetron [Zofran] 4 mg PO Q6H PRN 01/22/24 01/22/24 History Sulfamethox-Tmp 800-160Mg [Bactrim 1 tab PO Q12HR 01/22/24 01/22/24 History DS 800-160 mg] Allergies Allergy/AdvReac Type Severity Reaction Status Date / Time No Known Allergies Allergy Verified 01/22/24 08:11 Physical Exam Vitals: Vital Signs Temp Pulse Resp BP Pulse Ox 01/22/24 07:22 98.5 F 84 18 104/53 97 01/22/24 06:21 97.8 F 109 H 16 98/85 98 01/22/24 04:15 108 H 16 102/65 100 01/22/24 02:30 104 H 16 93/49 96 01/21/24 22:51 88 01/21/24 22:35 107 H 18 97/62 96 01/21/24 22:05 96 01/21/24 18:44 97.6 F 96 20 106/63 96 Intake and Output 01/21/24 01/22/24 01/22/24 22:59 06:59 14:59 Other: Weight 45.813 kg GENERAL DESCRIPTION: Elderly female lying in bed, no distress. No tachypnea or accessory muscle of respiration use. HEENT: Shows Pallor , no scleral icterus. Oral mucous membrane is dry. No pharyngeal erythema or thrush NECK: Trachea central, no thyromegaly. LUNGS: Unlabored breathing. Coarse breath sounds bilaterally HEART: S1, S2, regular rate and rhythm. No loud murmur ABDOMEN: Soft, no tenderness , guarding or rigidity, no organomegaly EXTREMITIES: No edema of feet. SKIN: Patient did have unstageable pressure ulcer to the sacral area with significant amount of necrotic slough tissue there was some purulent drainage which has been cultured NEUROLOGICAL: The patient is awake, alert, oriented x3, mood and affect normal. Results CBC & Chem 7: 01/22/24 15:59 01/22/24 10:27 Labs: Abnormal Lab Results - Last 24 Hours (Table) 01/21/24 01/21/24 01/22/24 Range/Units 20:29 20:29 02:52 WBC 29.4 H (3.8-10.6) k/uL RBC 3.46 L (3.80-5.40) m/uL Hgb 7.2 L (11.4-16.0) gm/dL Hct 25.7 L (34.0-46.0) % MCV 74.3 L (80.0-100.0) fL MCH 20.8 L (25.0-35.0) pg MCHC 27.9 L (31.0-37.0) g/dL RDW 19.4 H (11.5-15.5) % Plt Count 971 H (150-450) k/uL Neutrophils # 27.3 H (1.3-7.7) k/uL Lymphocytes # 0.9 L (1.0-4.8) k/uL ESR >130 H (0-30) mm/Hr Sodium 128 L (137-145) mmol/L Potassium 5.4 H 5.9 H (3.5-5.1) mmol/L Chloride 94 L (98-107) mmol/L BUN 43 H (7-17) mg/dL Glucose 57 L (74-99) mg/dL Alkaline Phosphatase 129 H (38-126) U/L C-Reactive Protein 51.6 H (<1.0) mg/dL Total Protein 5.9 L (6.3-8.2) g/dL Albumin 2.7 L (3.5-5.0) g/dL Lipase 11 L (23-300) U/L Ur Specific [place] (1.001-1.035) 01/22/24 Range/Units 06:02 WBC (3.8-10.6) k/uL RBC (3.80-5.40) m/uL Hgb (11.4-16.0) gm/dL Hct (34.0-46.0) % MCV (80.0-100.0) fL MCH (25.0-35.0) pg MCHC (31.0-37.0) g/dL RDW (11.5-15.5) % Plt Count (150-450) k/uL Neutrophils # (1.3-7.7) k/uL Lymphocytes # (1.0-4.8) k/uL ESR (0-30) mm/Hr Sodium (137-145) mmol/L Potassium (3.5-5.1) mmol/L Chloride (98-107) mmol/L BUN (7-17) mg/dL Glucose (74-99) mg/dL Alkaline Phosphatase (38-126) U/L C-Reactive Protein (<1.0) mg/dL Total Protein (6.3-8.2) g/dL Albumin (3.5-5.0) g/dL Lipase (23-300) U/L Ur Specific [place] 1.050 H (1.001-1.035) Assessment and Plan (1) Unstageable pressure ulcer of sacral region Current Visit: Yes Status: Acute Code(s): L89.150 - PRESSURE ULCER OF SACRAL REGION, UNSTAGEABLE SNOMED Code(s): 40409424109151032 (2) Abscess of sacrum Current Visit: Yes Status: Acute Code(s): M46.28 - OSTEOMYELITIS OF VERTEBRA, SACRAL AND SACROCOCCYGEAL REGION SNOMED Code(s): 410832912 (3) Sepsis Current Visit: No Status: Acute Code(s): A41.9 - SEPSIS, UNSPECIFIED ORGANISM SNOMED Code(s): 45563538 Plan: 1patient presented to hospital with sepsis in this patient who did have elev ated white count tachycardia and mild hypotension source is infected sacral pressure ulcer and will need to cover for both gram-positive as well as gram- negative pathogen 2-await surgical drainage of this abscess and deep culture should be obtained both aerobic and anaerobic 3-patient to continue with the vancomycin will add Unasyn to cover for the anaerobes and gram-negative We will follow on clinical condition and cultures to further adjust medication if needed Thank you for this consultation we will follow the patient along with you Dictation was produced using [employer] dictation software. please excuse any grammatical, word or spelling errors. Time with Patient: Greater than 30
[2024-01-22] MEDS: MONTELUKAST 10 MG TAB PO SCH (21:44)
[2024-01-22] MEDS: ATORVASTATIN 20 MG TAB PO SCH (21:44)
[2024-01-23] MEDS: ALPRAZolam 0.5 MG TAB PO PRN (02:03)
[2024-01-23] MEDS: PANTOPRAZOLE 40 MG TABLET PO SCH (07:05)
[2024-01-23 07:51] LABS: Anisocytosis Slight; Basophils % (A) 0 %; Eosinophils # (A) 0.1 k/uL (0-0.7); Eosinophils % (A) 0 %; HCT 25.8 % (34.0-46.0); HGB 7.1 gm/dL (11.4-16.0); Hypochromasia Marked; Lymphocytes # (A) 0.9 k/uL (1.0-4.8); Lymphocytes % (A) 3 %; MCH 21.4 pg (25.0-35.0); MCHC 27.5 g/dL (31.0-37.0); MCV 77.9 fL (80.0-100.0); Mean Platelet Volume 6.9; Microcytosis Moderate; Monocytes # (A) 0.6 k/uL (0-1.0); Monocytes % (A) 2 %; Neutrophils # (A) 26.4 k/uL (1.3-7.7); Neutrophils % (A) 94 %; Platelet Count 826 k/uL (150-450); RBC 3.31 m/uL (3.80-5.40); RDW 19.6 % (11.5-15.5); WBC 28.2 k/uL (3.8-10.6)
[2024-01-23 07:56] LABS: African American GFR (CKD) >90 (>60 ml/min/1.73 sqM); Anion Gap 3 mmol/L; Blood Urea Nitrogen 21 mg/dL (7-17); Calcium 8.7 mg/dL (8.4-10.2); Carbon Dioxide 27 mmol/L (22-30); Chloride 104 mmol/L (98-107); Glucose 86 mg/dL (74-99); Non-African American GFR(CKD) >90 (>60 ml/min/1.73 sqM); Potassium 4.7 mmol/L (3.5-5.1); Sodium 134 mmol/L (137-145)
--- NOTE | 2024-01-23 08:00 | XR ---
EXAMINATION TYPE: XR chest 1V portable DATE OF EXAM: 01/23/2024 7:16 AM COMPARISON: 01/11/2024 CLINICAL INDICATION: Female, 78 years old with history of CHF, , FINDINGS: Moderate limits are normal in size. Hyperinflation. Increased interstitial density, worsened from janeth or. Trace blunting of right ankle. Small nodular density in the periphery of the left mid lung. IMPRESSION: 1. COPD with mild diffuse interstitial infiltrate, worsened from 01/11/2024. Consider atypical/COVID pneumonia, interstitial pneumonitis , or sequela of CHF. 2. Possible trace right pleural effusion. 3. Attention on follow-up to exclude an underlying left midlung pulmonary nodule. [facility], , 01/23/2024 7:57 AM
[2024-01-23 08:15] LABS: Anisocytosis (M) Present; Hypochromasia (M) Present
[2024-01-23] MEDS: SERTRALINE 100 MG TAB PO SCH (08:56)
[2024-01-23] MEDS: ASPIRIN 81 MG PO SCH (08:57)
[2024-01-23] MEDS: METOPROLOL SUCCINATE (ER) 50 MG TAB.ER.24H PO SCH (08:57)
[2024-01-23] MEDS: IV FLUID CONTINUATION 1,000 ML IV ONE ×4 (09:29→11:30)
[2024-01-23] MEDS: FAMOTIDINE 20 MG/2 ML VIAL IV STA (10:14)
[2024-01-23] MEDS: DEXAMETHASONE SOD PHOSPHATE 4 MG/ML 1 ML VIAL IVP STA (10:15)
[2024-01-23] MEDS: ONDANSETRON 4 MG/2 ML VIAL IVP PRN (10:15)
[2024-01-23] MEDS ORDERED: ETOMIDATE 2 MG/ML 10 ML VIAL ONE (11:24)
[2024-01-23] MEDS ORDERED: SODIUM BICARB 8.4% 50 ML SYR (1 MEQ/ML) ONE (11:24)
[2024-01-23] MEDS ORDERED: PHENYLEPHRINE-0.9% NACL SYG 1,000 MCG/10 ML SYRINGE ONE (11:24)
[2024-01-23] MEDS ORDERED: LIDOCAINE 1% INJ 10MG/ML (20 ML MDV) ONE (11:24)
[2024-01-23] MEDS ORDERED: CALCIUM CHLORIDE 100 MG/ML 10 ML SYRINGE ONE (11:24)
[2024-01-23] MEDS: LACTATED RINGERS 1,000 ML BAG IV STA (11:30)
[2024-01-23] MEDS: LACTATED RINGERS 1,000 ML IV ONE (11:34)
--- NOTE | 2024-01-23 12:20 | P.OP ---
Date of Procedure: 01/23/24 Preoperative Diagnosis: Sacral decubitus ulcer Postoperative Diagnosis: Sacral decubitus ulcer Procedure(s) Performed: Debridement of sacral decubitus ulcer of necrotic skin and fat and muscle Anesthesia: LORRAINE Surgeon: Priyank Steen Estimated Blood Loss (ml): 15 Pathology: other (necrotic tissue) Condition: stable Disposition: PACU Description of Procedure: The patient was placed on the operative table in the lateral position and receiving LMA general anesthesia. Her decubitus ulcer was prepped in AP sterile fashion. The ulcer measured approximately 15 x 16 cm. It was approximately 3 cm deep. Using a electrocautery on cut mode the skin was sharply cut and then using electrocautery the necrotic skin and fat tissue were debrided. The Bovie and hemostasis. Several small bleeding points were coagulated. The wound was then packed with wet-to-dry Kerlix. Patient tolerated procedure well. She was sent to recovery room in stable condition.
[2024-01-23] MEDS: IPRATROPIUM-ALBUTEROL 3 ML NEB INHALATION PRN (13:11)
--- NOTE | 2024-01-23 15:27 | P.PN ---
Subjective Progress Note Date: 01/23/24 Principal diagnosis: Hospital course: Patient is a 78 year old female with past medical history of asthma, CAD, COPD, GERD, hyperlipidemia, hypertension, history of SVT and a recent left proximal femur periprosthetic fracture presented to the ED from her [facility] due to elevated white blood cell count. Patient has a severe sacral wound since 1 week. Patient mentions she was admitted in the hospital recently for a left proximal femur periprosthetic fracture that was managed conservatively. She does complain of pain on her hips that isn't getting better. Upon discharge from the hospital she went [facility]. She mentions not having good strength, which is why she is lying in the bed most of the day. Two days ago whe n she tried to ambulate using the walker she had a fall. She fell prone, didn't lose consciousness but mentions hitting her head. She was not able to get up on her own and was lying on the floor for 1 hour before she had help available. Addtionally, she states using 2L oxygen at home throughout the day. She also reports having shortness of breath, coughing with dark green phlegm production and constipation for which she usually take MiraLAX at home. Denies fever, chills, chest pain, abdominal pain, nausea, vomiting, dysuria, hematuria, hematochezia, melena, headache, blurry vision, double vision, slurring of speech. ED documentation reviewed. In the ED patient was treated with nebulizer milligram, dextrose, [place], insulin, ondansetron, Zosyn, 0.9 normal saline, calcium gluconate. Vitals on admission T 97.6 F, [place] 96 bpm, RR 20, BP 106/63, O2 sat 96% on 3 L nasal cannula EKG independently interpreted as sinus rhythm, rate 95 bpm, QTc [address] shows fairly moderate-sized posterior sacral thin-walled fluid collection having internal foci of air worrisome for abscess, No definitive bony destruction to suggest acute osteomyelitis but fluid collection does abut posterior margin of the lower sacrum Labs on admission show WBC 29.4, hemoglobin 7.2, hematocrit 25.7, MCV 74.3, RDW 19.4, platelet count 971, ESR more than 130, sodium 128, potassium 5.4, BUN 43, creatinine 0.75, ALP 129, CRP 51.6, lipase 11, lactic acid 1.5, glucose 57 UA shows specific gravity 1.050 01/23/24: No acute events overnight. She underwent debridement of the ulcer today. Respiratory panel was negative. Her pulse today is 123. pro-BNP is 2360. Labs today show WBC 28.2 hemoglobin 7.1, MCV 77.9, RDW 19.6, platelet count 826, sodium 134, potassium 4.7, BUN 21, creatinine 0.46. Blood culture shows no growth after 24 hours. Gram stain of the sacral ulcer shows many PMN and gram positive cocci. Chest Xray shows COPD with mild diffuse interstitial infiltrate worsened from 01/11/2024 consider atypical or COVID-pneumonia/interstitial pneumonitis/sequel of CHF. Possible trace right pleural effusion. Attention on follow-up to exclude underlying left midlung pulmonary nodule. Review of systems: Pertinent positives and negatives as discussed in HPI, a complete review of systems was performed and all other systems are negative. Vitals: Signs Reviewed Physical examination: General: nontoxic, no distress, appears at stated age Derm: warm, dry, intact Head: atraumatic, normocephalic, symmetric Eyes: EOMI, anicteric sclera Mouth: no lip lesion, mucus membranes moist Cardiovascular: S1 S2 reg, no murmur Lungs: CTA bilateral, no rhonchi, no rales, no accessory muscle use Abdominal: soft, non-tender to palpation Extremities: No cyanosis, clubbing, or pedal edema. Neuro: Alert, Oriented, 4/5 in all 4 extremities Psych: well appearing, appropriate affect Assessment/Plan: Patient is a 78 year old female with PMH of asthma, CAD, COPD, GERD, hyperlipidemia, hypertension, history of SVT and a recent left proximal femur periprosthetic fracture presented to the ED with sacral wound. She has been admitted for sacral decubitus ulcer and she underwent debridement of the ulcer of necrotic skin and fat and muscle today. Active: #. Sacral decubitus ulcer,unstageable #. Sepsis #. S/p debridement of sacral decubitus ulcer of necrotic skin and fat and muscle SIRS criteria, WBC 29.4, P 107, RR 20, BP 98/[address] shows fairly moderate-sized posterior sacral thin-walled fluid collection having internal foci of air worrisome for abscess, No definitive bony destruction to suggest acute osteomyelitis but fluid collection does abut posterior margin of the lower sacrum Blood culture shows no growth after 24 hours Gram stain of the sacral ulcer shows many PMN and gram positive cocci Continue Vancomycin 750 mg IVPB Q24HR and Unasyn 3 gm IVPB Q6HR Continue acetaminophemn 650 mg Q6HR PRN and [place] 5-325 Q4HR PRN, Dilaudid 1 mg IVP Q3HR PRN for pain management General surgery is following # Microcytic anemia Monitor CBC #. Nausea and vomiting Continue ondansetron 4 mg IVP Q8HR PRN Chronic: #. COPD, not in exacerbartion Continue supplemental oxygen, currently at 3L via nasal cannula Continue Albuterol 2 puff Q4H PRN, Duoneb Q6H PRN, Singulair 10 mg PO HS #. GERD Continue Pantoprazole 20 mg PO daily #. Anxiety/Depression Continue Sertraline 200 mg PO daily #. Hyperlipidemia Continue Atorvastatin 40 mg PO HS Resolved: #. Hyperkalemia F: 0.9 normal saline at 75 ml/hr E: Replete as required N: NPO after midnight A: DVT prophylaxis: Lovenox 40 mg SQ daily GI prophylaxis: Pantoprazole 40 mg PO daily Objective - Vital Signs Vital signs: Vital Signs Temp 98.3 F 01/23/24 04:00 Pulse 123 H 01/23/24 04:00 Resp 24 01/23/24 04:00 BP 101/57 01/23/24 04:00 Pulse Ox 100 01/23/24 01:41 FiO2 Intake & Output 01/22/24 01/23/24 01/23/24 18:59 06:59 18:59 Intake Total 160 Output Total 300 Balance -140 Weight 45.813 kg 32 kg Intake: Oral 160 Output: Urine 300 - Labs CBC & Chem 7: 01/23/24 07:30 01/23/24 07:30 Labs: Abnormal Lab Results - Last 24 Hours (Table) 01/22/24 01/22/24 Range/Units 10: 15:59 WBC 31.5 H (3.8-10.6) k/uL RBC 3.29 L (3.80-5.40) m/uL Hgb 7.1 L (11.4-16.0) gm/dL Hct 25.6 L (34.0-46.0) % MCV 77.9 L (80.0-100.0) fL MCH 21.5 L (25.0-35.0) pg MCHC 27.6 L (31.0-37.0) g/dL RDW 19.6 H (11.5-15.5) % Plt Count 780 H (150-450) k/uL Neutrophils # 30.2 H (1.3-7.7) k/uL Lymphocytes # 0.6 L (1.0-4.8) k/uL Sodium 130 L (137-145) mmol/L BUN 39 H (7-17) mg/dL Calcium 8.2 L (8.4-10.2) mg/dL Total Protein 5.2 L (6.3-8.2) g/dL Albumin 2.3 L (3.5-5.0) g/dL Microbiology - Last 24 Hours (Table) 01/21/24 20:29 Blood Culture - Preliminary Blood 01/22/24 11:54 Gram Stain - Preliminary Buttock
--- NOTE | 2024-01-23 16:52 | CDI ---
Documentation Clarification Form Date: 01/23/2024 04:12:21 PM From: Grace Boggs RN, CCDS Phone: [phone] Admit Date: 01/21/2024 10:44:00 PM Patient Name: Cesia Fried Visit Number: [id number] Discharge Date: ATTENTION: The Clinical Documentation Specialists (CDI) and [employer] Coding Staff appreciate your assistance in clarifying documentation. Please respond to the clarification below the line at the bottom and electronically sign. The CDI & [employer] Coding staff will review the response and follow-up if needed. Please note: Queries are made part of the Legal Health Record. If you have any questions, please contact the author of this message via ITS. Doctor. Priyank Steen A debridement is documented on 01/23/24 unfortunately, some required elements have not been documented. Additional clarification regarding the procedure is requested. History/Risk Factors: Sacral decubitus ulcer with CT scan findings of fluid collection at the sacrum, Clinical Indicators: 78-year-old female sent from group home. Patient has a severe sacral wound that they are concerned may be infected. VS 106/63 96 20 97.6 Labs: wbc 29.4 hgb 7.2/25.7, NA 128 k+ 5.4 BUN 43 Treatment: Unasyn 3 GM IVPB Q6 HRS Vancomycin 750MG IVPB Once (PTD) Please clarify the procedure performed [ xx] Excisional debridement (the removal of necrotic, devitalized tissue or slough by means of cutting away of tissue) [ ] Non-excisional debridement (the removal of necrotic, devitalized tissue or slough by means of flushing, brushing, or washing. (Irrigation) [ ] Other; please specify Dr. Steen Five elements required for accurate and compliant documentation of a debridement: -Technique used (e.g., excisional, excised, cutting, brushing, jet lavage etc.) -Instrument(s) used (e.g., scalpel, curette, etc.) -Nature of the tissue removed (e.g., necrotic, devitalized tissues, non-viable tissue, etc.) -Appearance and size of the wound (e.g., down to fresh bleeding tissue, 7cm x 10cm, etc.) -Depth of the debridement* (e.g., skin, subcutaneous tissue, fascia, muscle, bone, etc.) (Template Last Revised: October 2023) MTDD
--- NOTE | 2024-01-24 09:20 | P.PN ---
Subjective Progress Note Date: 01/23/24 Principal diagnosis: Reason for follow-up is infected sacral pressure ulcer Patient is a 78-year-old female with a past medical history significant for hypertension hyperlipidemia pneumonia COPD asthma patient is a custodial resident and the patient has been sent to the ER concerning for possible sepsis as the patient was noted to have elevated white count of 30 and did have a sacral wound with significant amount of necrotic tissue with abnormal CT suggestive of abscess and possible source of infection. Patient is status post debridement of the sacral pressure ulcer of the necrotic skin and fat and muscle no cultures were done On today's evaluation 01/23/2024, Patient is afebrile this morning patient is sleepy post surgical debridement did not provide any history no vomiting diarrhea any changes has been reported by the nursing staff patient is currently on 5 L nasal cannula oxygen. Patient white count slightly down to 28.2 creatinine 0.46 cultures are currently pending Objective - Vital Signs Vital signs: Vital Signs Temp 98.5 F 01/23/24 12:33 Pulse 99 01/23/24 12:51 Resp 22 01/23/24 12:51 BP 121/62 01/23/24 12:51 Pulse Ox 100 01/23/24 12:51 FiO2 Intake & Output 01/22/24 01/23/24 01/23/24 18:59 06:59 18:59 Intake Total 160 2900 Output Total 300 15 Balance -140 2885 Weight 45.813 kg 32 kg Intake: IV 2900 Oral 160 Output: Urine 300 Estimated Blood Loss 15 - Exam GENERAL DESCRIPTION: An elderly female lying in bed in no distress RESPIRATORY SYSTEM: Unlabored breathing , decreased breath sounds at bases HEART: S1 S2 regular rate and rhythm , ABDOMEN: Soft , no tenderness EXTREMITIES: No edema feet - Labs CBC & Chem 7: 01/23/24 07:30 01/23/24 07:30 Labs: Abnormal Lab Results - Last 24 Hours (Table) 01/22/24 01/23/24 01/23/24 Range/Units 15:59 07:30 07:30 WBC 31.5 H 28.2 H (3.8-10.6) k/uL RBC 3.29 L 3.31 L (3.80-5.40) m/uL Hgb 7.1 L 7.1 L (11.4-16.0) gm/dL Hct 25.6 L 25.8 L (34.0-46.0) % MCV 77.9 L 77.9 L (80.0-100.0) fL MCH 21.5 L 21.4 L (25.0-35.0) pg MCHC 27.6 L 27.5 L (31.0-37.0) g/dL RDW 19.6 H 19.6 H (11.5-15.5) % Plt Count 780 H 826 H (150-450) k/uL Neutrophils # 30.2 H 26.4 H (1.3-7.7) k/uL Lymphocytes # 0.6 L 0.9 L (1.0-4.8) k/uL Sodium 134 L (137-145) mmol/L BUN 21 H (7-17) mg/dL Creatinine 0.46 L (0.52-1.04) mg/dL Crossmatch 01/23/24 Range/Units 09:12 WBC (3.8-10.6) k/uL RBC (3.80-5.40) m/uL Hgb (11.4-16.0) gm/dL Hct (34.0-46.0) % MCV (80.0-100.0) fL MCH (25.0-35.0) pg MCHC (31.0-37.0) g/dL RDW (11.5-15.5) % Plt Count (150-450) k/uL Neutrophils # (1.3-7.7) k/uL Lymphocytes # (1.0-4.8) k/uL Sodium (137-145) mmol/L BUN (7-17) mg/dL Creatinine (0.52-1.04) mg/dL Crossmatch See Detail Microbiology - Last 24 Hours (Table) 01/21/24 20:29 Blood Culture - Preliminary Blood 01/22/24 11:54 Gram Stain - Preliminary Buttock Wound Culture - Preliminary Assessment and Plan (1) Unstageable pressure ulcer of sacral region Current Visit: Yes Status: Acute Code(s): L89.150 - PRESSURE ULCER OF SACRAL REGION, UNSTAGEABLE SNOMED Code(s): 07631121635018413 (2) Abscess of sacrum Current Visit: Yes Status: Acute Code(s): M46.28 - OSTEOMYELITIS OF VERTEBRA, SACRAL AND SACROCOCCYGEAL REGION SNOMED Code(s): 341473957 (3) Sepsis Current Visit: No Status: Acute Code(s): A41.9 - SEPSIS, UNSPECIFIED ORGANISM SNOMED Code(s): 28326858 Plan: 1patient presented to hospital with sepsis in this patient who did have janee vated white count tachycardia and mild hypotension source is infected sacral pressure ulcer and will need to cover for both gram-positive as well as gram- negative pathogen 2-patient is status post surgical debridement of the infected sacral pressure ulcer no cultures were done 3-patient to continue with the vancomycin will add Unasyn while waiting for the culture done personally in the ER to be completed Dictation was produced using [employer] dictation software. please excuse any grammatical, word or spelling errors.
--- NOTE | 2024-01-24 09:26 | P.PN ---
Subjective Progress Note Date: 01/24/24 Principal diagnosis: Hospital course: Patient is a 78 year old female with past medical history of asthma, CAD, COPD, GERD, hyperlipidemia, hypertension, history of SVT and a recent left proximal femur periprosthetic fracture presented to the ED from her shelter due to elevated white blood cell count. Patient has a severe sacral wound since 1 week. Patient mentions she was admitted in the hospital recently for a left proximal femur periprosthetic fracture that was managed conservatively. She does complain of pain on her hips that isn't getting better. Upon discharge from the hospital she went to the shelter for rehabilitation. She mentions not having good strength, which is why she is lying in the bed most of the day. Two days ago whe n she tried to ambulate using the walker she had a fall. She fell prone, didn't lose consciousness but mentions hitting her head. She was not able to get up on her own and was lying on the floor for 1 hour before she had help available. Addtionally, she states using 2L oxygen at home throughout the day. She also reports having shortness of breath, coughing with dark green phlegm production and constipation for which she usually take MiraLAX at home. Denies fever, chills, chest pain, abdominal pain, nausea, vomiting, dysuria, hematuria, hematochezia, melena, headache, blurry vision, double vision, slurring of speech. ED documentation reviewed. In the ED patient was treated with nebulizer milligram, dextrose, [place], insulin, ondansetron, Zosyn, 0.9 normal saline, calcium gluconate. Vitals on admission T 97.6 F, [place] 96 bpm, RR 20, BP 106/63, O2 sat 96% on 3 L nasal cannula EKG independently interpreted as sinus rhythm, rate 95 bpm, QTc [address] shows fairly moderate-sized posterior sacral thin-walled fluid collection having internal foci of air worrisome for abscess, No definitive bony destruction to suggest acute osteomyelitis but fluid collection does abut posterior margin of the lower sacrum Labs on admission show WBC 29.4, hemoglobin 7.2, hematocrit 25.7, MCV 74.3, RDW 19.4, platelet count 971, ESR more than 130, sodium 128, potassium 5.4, BUN 43, creatinine 0.75, ALP 129, CRP 51.6, lipase 11, lactic acid 1.5, glucose 57 UA shows specific gravity 1.050 01/23/24: No acute events overnight. She underwent debridement of the ulcer today. Respiratory panel was negative. Her pulse today is 123. pro-BNP is 2360. Labs today show WBC 28.2 hemoglobin 7.1, MCV 77.9, RDW 19.6, platelet count 826, sodium 134, potassium 4.7, BUN 21, creatinine 0.46. Blood culture shows no growth after 24 hours. Gram stain of the sacral ulcer shows many PMN and gram positive cocci. Chest Xray shows COPD with mild diffuse interstitial infiltrate worsened from 01/11/2024 consider atypical or COVID-pneumonia/interstitial pneumonitis/sequel of CHF. Possible trace right pleural effusion. Attention on follow-up to exclude underlying left midlung pulmonary nodule. 01/24/24: Patient seen and examined at bedside today. She received 1 unit PRBC yesterday. No new complaints today. Blood culture shows gram positive cocci in clusters. Review of systems: Pertinent positives and negatives as discussed in HPI, a complete review of systems was performed and all other systems are negative. Vitals: Signs Reviewed Physical examination: General: nontoxic, no distress, appears at stated age Derm: warm, dry, intact Head: atraumatic, normocephalic, symmetric Eyes: EOMI, anicteric sclera Mouth: no lip lesion, mucus membranes moist Cardiovascular: S1 S2 reg, no murmur Lungs: CTA bilateral, no rhonchi, no rales, no accessory muscle use Abdominal: soft, non-tender to palpation Extremities: No cyanosis, clubbing, or pedal edema. Neuro: Alert, Oriented, 4/5 in all 4 extremities Psych: well appearing, appropriate affect Assessment/Plan: Patient is a 78 year old female with PMH of asthma, CAD, COPD, GERD, hyperlipidemia, hypertension, history of SVT and a recent left proximal femur periprosthetic fracture presented to the ED with sacral wound. She has been admitted for sacral decubitus ulcer and she underwent debridement of the ulcer of necrotic skin and fat and muscle along with 1 unit PRBC transfusion on 01/23/24. Active: #. Sacral decubitus ulcer,unstageable #. Sepsis #. S/p debridement of sacral decubitus ulcer of necrotic skin and fat and muscle SIRS criteria, WBC 29.4, P 107, RR 20, BP 98/[address] shows fairly moderate-sized posterior sacral thin-walled fluid collection having internal foci of air worrisome for abscess, No definitive bony destruction to suggest acute osteomyelitis but fluid collection does abut posterior margin of the lower sacrum Blood culture shows gram positive cocci in clusters. Gram stain of the sacral ulcer shows many PMN and gram positive cocci Continue Vancomycin 750 mg IVPB Q24HR and Unasyn 3 gm IVPB Q6HR Continue Acetaminophemn 650 mg Q6HR PRN, [place] 5-325 Q4HR PRN, Dilaudid 1 mg IVP Q3HR PRN for pain management General surgery is following # Microcytic anemia S/p 1 unit PRBC 01/23/24 Monitor CBC #. Nausea and vomiting Continue Ondansetron 4 mg IVP Q8HR PRN Chronic: #. COPD, not in exacerbartion Wean off oxygen Continue supplemental oxygen, currently at 4L via nasal cannula Continue Albuterol 2 puff Q4H PRN, Duoneb Q6H PRN, Singulair 10 mg PO HS #. GERD Continue Pantoprazole 20 mg PO daily #. Anxiety/Depression Continue Sertraline 200 mg PO daily #. Hyperlipidemia Continue Atorvastatin 40 mg PO HS Resolved: #. Hyperkalemia F: 0.9 normal saline at 75 ml/hr E: Replete as required N: NPO after midnight A: DVT prophylaxis: Lovenox 40 mg SQ daily GI prophylaxis: Pantoprazole 40 mg PO daily Objective - Vital Signs Vital signs: Vital Signs Temp 97.3 F L 01/24/24 03:16 Pulse 101 H 01/24/24 03:16 Resp 16 01/24/24 03:16 BP 91/61 01/24/24 03:16 Pulse Ox 98 01/24/24 03:16 FiO2 Intake & Output 01/23/24 01/24/24 01/24/24 18:59 06:59 18:59 Intake Total 3710 285 Output Total 415 350 Balance 3295 -65 Weight 30 kg Intake: IV 3400 45 Invasive Line 3 5 Invasive Line 4 40 Oral 240 Blood Product 310 Rc As-1 Unit 310 [id number] Output: Urine 400 350 Estimated Blood Loss 15 Other: Voiding Method Incontinent External Catheter - Labs CBC & Chem 7: 01/23/24 07:30 01/23/24 07:30 Labs: Abnormal Lab Results - Last 24 Hours (Table) 01/23/24 01/23/24 01/23/24 Range/Units 07:30 07:30 09:12 WBC 28.2 H (3.8-10.6) k/uL RBC 3.31 L (3.80-5.40) m/uL Hgb 7.1 L (11.4-16.0) gm/dL Hct 25.8 L (34.0-46.0) % MCV 77.9 L (80.0-100.0) fL MCH 21.4 L (25.0-35.0) pg MCHC 27.5 L (31.0-37.0) g/dL RDW 19.6 H (11.5-15.5) % Plt Count 826 H (150-450) k/uL Neutrophils # 26.4 H (1.3-7.7) k/uL Lymphocytes # 0.9 L (1.0-4.8) k/uL Sodium 134 L (137-145) mmol/L BUN 21 H (7-17) mg/dL Creatinine 0.46 L (0.52-1.04) mg/dL Crossmatch See Detail Microbiology - Last 24 Hours (Table) 01/21/24 20:29 Blood Culture Gram Stain - Preliminary Blood Blood Culture - Preliminary 01/22/24 11:54 Gram Stain - Preliminary Buttock Wound Culture - Preliminary
[2024-01-24] MEDS: ENOXAPARIN 40 MG/0.4 ML SYRINGE SQ SCH (09:28)
[2024-01-24 10:36] LABS: Anisocytosis Moderate; HCT 26.6 % (34.0-46.0); HGB 7.6 gm/dL (11.4-16.0); Hypochromasia Marked; MCHC 28.6 g/dL (31.0-37.0); MCV 80.4 fL (80.0-100.0); Mean Platelet Volume 6.8; Microcytosis Slight; Platelet Count 665 k/uL (150-450); Poikilocytosis Moderate; RBC 3.31 m/uL (3.80-5.40); RDW 20.1 % (11.5-15.5); WBC 16.4 k/uL (3.8-10.6)
[2024-01-24 10:58] LABS: African American GFR (CKD) >90 (>60 ml/min/1.73 sqM); Anion Gap -1 mmol/L; Blood Urea Nitrogen 17 mg/dL (7-17); Calcium 8.8 mg/dL (8.4-10.2); Carbon Dioxide 30 mmol/L (22-30); Chloride 107 mmol/L (98-107); Glucose 91 mg/dL (74-99); Non-African American GFR(CKD) >90 (>60 ml/min/1.73 sqM); Potassium 4.5 mmol/L (3.5-5.1); Sodium 136 mmol/L (137-145)
[2024-01-24] MEDS ORDERED: ALBUTEROL NEBULIZED 2.5 MG/3 ML INHALATION SCH (12:00)
--- NOTE | 2024-01-24 13:41 | P.PN ---
Subjective Progress Note Date: 01/24/24 CHIEF COMPLAINT: Sacral ulcer HISTORY OF PRESENT ILLNESS: The patient is a 78-year-old female sacral d ebridement to muscle 01/23/2024. She is resting comfortably. Per discussion with nursing, no bleeding overnight. External dressing was changed. Patient is also being seen by infectious disease. She is a regular diet. ROS: No reports of nausea and vomiting. No fevers or chills. No new chest p ain. PHYSICAL EXAM: VITAL SIGNS: Reviewed CONSTITUTIONAL: Well developed and in no acute distress. EYES: Conjuctivae without sclera icterus. Extraocular movements grossly intact. HEAD, EARS, NOSE, THROAT: Moist buccal mucosa. Head is atraumatic, normocephalic. Hears conversational speech. No nasal drainage. RESPIRATORY: Non-labored respirations and equal bilateral excursions. CARDIOVASCULAR: Palpable 2+ radial pulses. ABDOMEN: No peritonitis. MUSCULOSKELETAL: No gross deformity of the lower extremities noted. No clubbing. No cyanosis. SKIN: Good skin turgor. Well perfused. Dressing intact. NEUROLOGIC: Cranial nerves II through XII grossly intact. No focal or lateralizing signs. PSYCH: Appropriate affect. Alert and oriented to person, place and time. CLINICAL LABS: Reviewed. WBC decreasing 28.2 now 16.2 with leukocytosis. Hemoglobin increased 7.1 now 7.6, anemia. ASSESSMENT: 1. Sacral stage III ulcer 2. Sepsis with leukocytosis 3. Chronic obstructive pulmonary disease PLAN: 1. Recommend addressing nutrition for high-protein diet for optimal recovery 2. Antibiotic management for infectious disease 3. Due to size of debridement, may benefit from optional dressing from wet-to-dry dressings versus wound VAC Objective - Vital Signs Vital signs: Vital Signs Temp 97.1 F L 01/24/24 11:37 Pulse 74 01/24/24 11:37 Resp 17 01/24/24 11:37 BP 130/74 01/24/24 11:37 Pulse Ox 93 L 01/24/24 11:37 FiO2 Intake & Output 01/23/24 01/24/24 01/24/24 18:59 06:59 18:59 Intake Total 3710 285 40 Output Total 415 350 Balance 3295 -65 40 Weight 30 kg Intake: IV 3400 45 40 Invasive Line 3 5 Invasive Line 4 40 40 Oral 240 Blood Product 310 Rc As-1 Unit 310 [id number] Output: Urine 400 350 Estimated Blood Loss 15 Other: Voiding Method Incontinent Incontinent External Catheter External Catheter - Labs CBC & Chem 7: 01/24/24 10:19 01/24/24 10:19 Labs: Abnormal Lab Results - Last 24 Hours (Table) 01/23/24 01/24/24 01/24/24 Range/Units 09:12 10:19 10:19 WBC 16.4 H (3.8-10.6) k/uL RBC 3.31 L (3.80-5.40) m/uL Hgb 7.6 L (11.4-16.0) gm/dL Hct 26.6 L (34.0-46.0) % MCH 23.0 L (25.0-35.0) pg MCHC 28.6 L (31.0-37.0) g/dL RDW 20.1 H (11.5-15.5) % Plt Count 665 H (150-450) k/uL Sodium 136 L (137-145) mmol/L Creatinine 0.44 L (0.52-1.04) mg/dL Crossmatch See Detail Microbiology - Last 24 Hours (Table) 01/22/24 11:54 Gram Stain - Final Buttock Wound Culture - Final 01/21/24 20:29 Blood Culture Gram Stain - Preliminary Blood Blood Culture - Preliminary
--- NOTE | 2024-01-24 14:00 | P.PN ---
Subjective Progress Note Date: 01/24/24 Principal diagnosis: Reason for follow-up is infected sacral pressure ulcer Patient is a 78-year-old female with a past medical history significant for hypertension hyperlipidemia pneumonia COPD asthma patient is a shelter resident and the patient has been sent to the ER concerning for possible sepsis as the patient was noted to have elevated white count of 30 and did have a sacral wound with significant amount of necrotic tissue with abnormal CT suggestive of abscess and possible source of infection. Patient is status post debridement of the sacral pressure ulcer of the necrotic skin and fat and muscle no cultures were done On today's evaluation 01/24/2024,the patient denies any fever or any chills, patient is more awake and alert today breathing comfortably on 3 L nasal cannula oxygen, the patient denies chest pain shortness of breath and no significant cough, patient denies abdominal pain, no nausea vomiting or diarrhea. Patient denies any worsening pain to the sacral wound area. Patient white count is down to 16.4, creatinine 0.44 cultures are currently pending Objective - Vital Signs Vital signs: Vital Signs Temp 97.1 F L 01/24/24 11:37 Pulse 74 01/24/24 11:37 Resp 17 01/24/24 11:37 BP 130/74 01/24/24 11:37 Pulse Ox 93 L 01/24/24 11:37 FiO2 Intake & Output 01/23/24 01/24/24 01/24/24 18:59 06:59 18:59 Intake Total 3710 285 40 Output Total 415 350 Balance 3295 -65 40 Weight 30 kg Intake: IV 3400 45 40 Invasive Line 3 5 Invasive Line 4 40 40 Oral 240 Blood Product 310 Rc As-1 Unit 310 [id number] Output: Urine 400 350 Estimated Blood Loss 15 Other: Voiding Method Incontinent Incontinent External Catheter External Catheter - Exam GENERAL DESCRIPTION: An elderly female lying in bed in no distress RESPIRATORY SYSTEM: Unlabored breathing , decreased breath sounds at bases HEART: S1 S2 regular rate and rhythm , ABDOMEN: Soft , no tenderness EXTREMITIES: No edema feet - Labs CBC & Chem 7: 01/24/24 10:19 01/24/24 10:19 Labs: Abnormal Lab Results - Last 24 Hours (Table) 01/23/24 01/24/24 01/24/24 Range/Units 09:12 10:19 10:19 WBC 16.4 H (3.8-10.6) k/uL RBC 3.31 L (3.80-5.40) m/uL Hgb 7.6 L (11.4-16.0) gm/dL Hct 26.6 L (34.0-46.0) % MCH 23.0 L (25.0-35.0) pg MCHC 28.6 L (31.0-37.0) g/dL RDW 20.1 H (11.5-15.5) % Plt Count 665 H (150-450) k/uL Sodium 136 L (137-145) mmol/L Creatinine 0.44 L (0.52-1.04) mg/dL Crossmatch See Detail Microbiology - Last 24 Hours (Table) 01/22/24 11:54 Gram Stain - Final Buttock Wound Culture - Final 01/21/24 20:29 Blood Culture Gram Stain - Preliminary Blood Blood Culture - Preliminary Assessment and Plan (1) Unstageable pressure ulcer of sacral region Current Visit: Yes Status: Acute Code(s): L89.150 - PRESSURE ULCER OF SACRAL REGION, UNSTAGEABLE SNOMED Code(s): 91721506322008636 (2) Abscess of sacrum Current Visit: Yes Status: Acute Code(s): M46.28 - OSTEOMYELITIS OF VERTEBRA, SACRAL AND SACROCOCCYGEAL REGION SNOMED Code(s): 713200479 (3) Sepsis Current Visit: No Status: Acute Code(s): A41.9 - SEPSIS, UNSPECIFIED ORGANISM SNOMED Code(s): 95487536 Plan: 1patient presented to hospital with sepsis in this patient who did have elevated white count tachycardia and mild hypotension source is infected sacral pressure ulcer and will need to cover for both gram-positive as well as gram- negative pathogen 2-patient is status post surgical debridement of the infected sacral pressure ulcer no cultures were done 3-patient white count is trending down, patient will be treated with the vancomycin and Unasyn while waiting for the culture to finalize Dictation was produced using [employer] dictation software. please excuse any grammatical, word or spelling errors. Time with Patient: Less than 30
[2024-01-24] MEDS: IPRATROPIUM-ALBUTEROL 3 ML NEB INHALATION SCH (15:37)
[2024-01-24] MEDS: HYDROmorphone 1 MG/ML 1 ML SYRINGE IVP PRN (16:19)
[2024-01-24] MEDS: VANCOMYCIN TROUGH DUE 1 EACH MISC MISCELLANE ONE (22:45)
[2024-01-25 06:33] LABS: Potassium 4.4 mmol/L (3.5-5.1)
[2024-01-25 06:34] LABS: African American GFR (CKD) >90 (>60 ml/min/1.73 sqM); Anion Gap 0 mmol/L; Blood Urea Nitrogen 14 mg/dL (7-17); Calcium 8.1 mg/dL (8.4-10.2); Carbon Dioxide 28 mmol/L (22-30); Chloride 106 mmol/L (98-107); Glucose 106 mg/dL (74-99); Non-African American GFR(CKD) >90 (>60 ml/min/1.73 sqM); Sodium 134 mmol/L (137-145)
[2024-01-25 07:31] LABS: Anisocytosis Moderate; HCT 27.4 % (34.0-46.0); HGB 7.8 gm/dL (11.4-16.0); Hypochromasia Marked; MCH 23.5 pg (25.0-35.0); MCHC 28.7 g/dL (31.0-37.0); Mean Platelet Volume 7.1; Microcytosis Slight; Platelet Count 615 k/uL (150-450); Poikilocytosis Slight; RBC 3.34 m/uL (3.80-5.40); RDW 20.1 % (11.5-15.5); WBC 13.5 k/uL (3.8-10.6)
[2024-01-25] MEDS ORDERED: VANCOMYCIN 750 MG in SODIUM CHLORIDE 0.9% 250 ML IVPB SCH ×2 (11:00→15:00)
[2024-01-25] MEDS: VANCOMYCIN 750 MG in SODIUM CHLORIDE 0.9% 250 ML IVPB SCH (12:02)
--- NOTE | 2024-01-25 12:21 | P.PN ---
Subjective Progress Note Date: 01/25/24 Principal diagnosis: Hospital course: Patient is a 78 year old female with past medical history of asthma, CAD, COPD, GERD, hyperlipidemia, hypertension, history of SVT and a recent left proximal femur periprosthetic fracture presented to the ED from her custodial due to elevated white blood cell count. Patient has a severe sacral wound since 1 week. Patient mentions she was admitted in the hospital recently for a left proximal femur periprosthetic fracture that was managed conservatively. She does complain of pain on her hips that isn't getting better. Upon discharge from the hospital she went to the custodial for rehabilitation. She mentions not having good strength, which is why she is lying in the bed most of the day. Two days ago whe n she tried to ambulate using the walker she had a fall. She fell prone, didn't lose consciousness but mentions hitting her head. She was not able to get up on her own and was lying on the floor for 1 hour before she had help available. Addtionally, she states using 2L oxygen at home throughout the day. She also reports having shortness of breath, coughing with dark green phlegm production and constipation for which she usually take MiraLAX at home. Denies fever, chills, chest pain, abdominal pain, nausea, vomiting, dysuria, hematuria, hematochezia, melena, headache, blurry vision, double vision, slurring of speech. ED documentation reviewed. In the ED patient was treated with nebulizer milligram, dextrose, [place], insulin, ondansetron, Zosyn, 0.9 normal saline, calcium gluconate. Vitals on admission T 97.6 F, [place] 96 bpm, RR 20, BP 106/63, O2 sat 96% on 3 L nasal cannula EKG independently interpreted as sinus rhythm, rate 95 bpm, QTc [address] shows fairly moderate-sized posterior sacral thin-walled fluid collection having internal foci of air worrisome for abscess, No definitive bony destruction to suggest acute osteomyelitis but fluid collection does abut posterior margin of the lower sacrum Labs on admission show WBC 29.4, hemoglobin 7.2, hematocrit 25.7, MCV 74.3, RDW 19.4, platelet count 971, ESR more than 130, sodium 128, potassium 5.4, BUN 43, creatinine 0.75, ALP 129, CRP 51.6, lipase 11, lactic acid 1.5, glucose 57 UA shows specific gravity 1.050 01/23/24: No acute events overnight. She underwent debridement of the ulcer today. Respiratory panel was negative. Her pulse today is 123. pro-BNP is 2360. Labs today show WBC 28.2 hemoglobin 7.1, MCV 77.9, RDW 19.6, platelet count 826, sodium 134, potassium 4.7, BUN 21, creatinine 0.46. Blood culture shows no growth after 24 hours. Gram stain of the sacral ulcer shows many PMN and gram positive cocci. Chest Xray shows COPD with mild diffuse interstitial infiltrate worsened from 01/11/2024 consider atypical or COVID-pneumonia/interstitial pneumonitis/sequel of CHF. Possible trace right pleural effusion. Attention on follow-up to exclude underlying left midlung pulmonary nodule. 01/24/24: Patient seen and examined at bedside today. She received 1 unit PRBC yesterday. No new complaints today. Blood culture shows gram positive cocci in clusters. 01/25/24: Patient evaluated at bedside. Her pulse today is 117 bpm. She is currently on 3L O2 via nasal cannula. She reports of pain at the ulcer site. Denies shortness of breath. Labs today show WBC 13.6, hemoglobin 7.8, platelet count 615, sodium 134. Aerobic wound culture shows few normal skin french. Review of systems: Pertinent positives and negatives as discussed in HPI, a complete review of systems was performed and all other systems are negative. Vitals: Signs Reviewed Physical examination: General: nontoxic, no distress, appears at stated age Derm: warm, dry, intact Head: atraumatic, normocephalic, symmetric Eyes: EOMI, anicteric sclera Mouth: no lip lesion, mucus membranes moist Cardiovascular: S1 S2 reg, no murmur Lungs: CTA bilateral, no rhonchi, no rales, no accessory muscle use Abdominal: soft, non-tender to palpation Extremities: No cyanosis, clubbing, or pedal edema. Neuro: Alert, Oriented, 4/5 in all 4 extremities Psych: well appearing, appropriate affect Assessment/Plan: Patient is a 78 year old female with PMH of asthma, CAD, COPD, GERD, hyperlipidemia, hypertension, history of SVT and a recent left proximal femur periprosthetic fracture presented to the ED with sacral wound. She has been admitted for sacral decubitus ulcer and she underwent debridement of the ulcer of necrotic skin and fat and muscle along with 1 unit PRBC transfusion on 01/23/24. Active: #. Sacral decubitus ulcer,unstageable #. Sepsis #. S/p debridement of sacral decubitus ulcer of necrotic skin and fat and muscle SIRS criteria, WBC 29.4, P 107, RR 20, BP 98/[address] shows fairly moderate-sized posterior sacral thin-walled fluid collect ion having internal foci of air worrisome for abscess, No definitive bony destruction to suggest acute osteomyelitis but fluid collection does abut posterior margin of the lower sacrum Blood culture shows gram positive cocci in clusters. Gram stain of the sacral ulcer shows many PMN and gram positive cocci Continue Vancomycin 750 mg IVPB Q24HR and Unasyn 3 gm IVPB Q6HR Continue Acetaminophemn 650 mg Q6HR PRN, [place] 5-325 Q4HR PRN, Dilaudid 1 mg IVP Q3HR PRN for pain management Due to size of debridement, may benefit from optional dressing from wet-to-dry dressings versus wound VAC General surgery is following # Microcytic anemia S/p 1 unit PRBC 01/23/24 Monitor CBC #. Nausea and vomiting Continue Ondansetron 4 mg IVP Q8HR PRN Chronic: #. COPD, not in exacerbartion Wean off oxygen Continue supplemental oxygen, currently at 4L via nasal cannula Continue Albuterol 2 puff Q4H PRN, Duoneb Q6H, Singulair 10 mg PO HS #. GERD Continue Pantoprazole 20 mg PO daily #. Anxiety/Depression Continue Sertraline 200 mg PO daily #. Hyperlipidemia Continue Atorvastatin 40 mg PO HS Resolved: #. Hyperkalemia F: 0.9 normal saline at 75 ml/hr E: Replete as required N: High protein/High calorie diet A: DVT prophylaxis: Lovenox 40 mg SQ daily GI prophylaxis: Pantoprazole 40 mg PO daily Objective - Vital Signs Vital signs: Vital Signs Temp 97.8 F 01/25/24 04:00 Pulse 117 H 01/25/24 04:00 Resp 21 01/25/24 04:00 BP 98/59 01/25/24 04:00 Pulse Ox 94 L 01/24/24 23:16 FiO2 Intake & Output 01/24/24 01/25/24 01/25/24 18:59 06:59 18:59 Intake Total 40 730 Output Total 350 Balance -310 730 Weight 30 kg Intake: IV 40 Invasive Line 4 40 Intake, IV Titration 250 Amount Vancomycin 750 mg In 250 Sodium Chloride 0.9% 250 ml @ 125 mls/hr IVPB Q24H [facility] Rx#:[id number] Oral 480 Output: Urine 350 Other: Voiding Method Incontinent Incontinent External Catheter External Catheter # Voids 1 - Labs CBC & Chem 7: 01/25/24 05:38 01/25/24 05:38 Labs: Abnormal Lab Results - Last 24 Hours (Table) 01/24/24 01/24/24 01/25/24 Range/Units 10:19 10:19 05:38 WBC 16.4 H 13.5 H (3.8-10.6) k/uL RBC 3.31 L 3.34 L (3.80-5.40) m/uL Hgb 7.6 L 7.8 L (11.4-16.0) gm/dL Hct 26.6 L 27.4 L (34.0-46.0) % MCH 23.0 L 23.5 L (25.0-35.0) pg MCHC 28.6 L 28.7 L (31.0-37.0) g/dL RDW 20.1 H 20.1 H (11.5-15.5) % Plt Count 665 H 615 H (150-450) k/uL Sodium 136 L (137-145) mmol/L Creatinine 0.44 L (0.52-1.04) mg/dL Glucose (74-99) mg/dL Calcium (8.4-10.2) mg/dL 01/25/24 Range/Units 05:38 WBC (3.8-10.6) k/uL RBC (3.80-5.40) m/uL Hgb (11.4-16.0) gm/dL Hct (34.0-46.0) % MCH (25.0-35.0) pg MCHC (31.0-37.0) g/dL RDW (11.5-15.5) % Plt Count (150-450) k/uL Sodium 134 L (137-145) mmol/L Creatinine 0.46 L (0.52-1.04) mg/dL Glucose 106 H (74-99) mg/dL Calcium 8.1 L (8.4-10.2) mg/dL Microbiology - Last 24 Hours (Table) 01/22/24 11:54 Gram Stain - Final Buttock Wound Culture - Final
--- NOTE | 2024-01-25 12:43 | P.PN ---
Subjective Progress Note Date: 01/25/24 Principal diagnosis: Reason for follow-up is infected sacral pressure ulcer Patient is a 78-year-old female with a past medical history significant for hypertension hyperlipidemia pneumonia COPD asthma patient is a care home resident and the patient has been sent to the ER concerning for possible sepsis as the patient was noted to have elevated white count of 30 and did have a sacral wound with significant amount of necrotic tissue with abnormal CT suggestive of abscess and possible source of infection. Patient is status post debridement of the sacral pressure ulcer of the necrotic skin and fat and muscle no cultures were done On today's evaluation that is 01/25/2024,the patient remains to be afebrile, patient is on 3 L nasal cannula supplemental oxygen and denies any shortness of breath no chest pain or cough.Patient denies having any nausea or vomiting, no abdominal pain and no diarrhea has been reported and the patient denies any worsening pain to the sacral wound. Patient white count is down to 13.5, creatinine 0.46 Vanco trough was low, blood culture with gram-positive cocci however has not been notified yet Objective - Vital Signs Vital signs: Vital Signs Temp 97.9 F 01/25/24 09:10 Pulse 72 01/25/24 09:57 Resp 18 01/25/24 09:10 BP 103/57 01/25/24 09:10 Pulse Ox 100 01/25/24 09:10 FiO2 Intake & Output 01/24/24 01/25/24 01/25/24 18:59 06:59 18:59 Intake Total 40 730 Output Total 350 Balance -310 730 Weight 30 kg Intake: IV 40 Invasive Line 4 40 Intake, IV Titration 250 Amount Vancomycin 750 mg In 250 Sodium Chloride 0.9% 250 ml @ 125 mls/hr IVPB Q24H [facility] Rx#:[id number] Oral 480 Output: Urine 350 Other: Voiding Method Incontinent Incontinent Incontinent External Catheter External Catheter External Catheter # Voids 1 - Exam GENERAL DESCRIPTION: An elderly female lying in bed in no distress RESPIRATORY SYSTEM: Unlabored breathing , decreased breath sounds at bases HEART: S1 S2 regular rate and rhythm , ABDOMEN: Soft , no tenderness Patient did have a stage IV sacral wound with slough tissue no surrounding redness EXTREMITIES: No edema feet - Labs CBC & Chem 7: 01/25/24 05:38 01/25/24 05:38 Labs: Abnormal Lab Results - Last 24 Hours (Table) 01/25/24 01/25/24 Range/Units 05:38 05:38 WBC 13.5 H (3.8-10.6) k/uL RBC 3.34 L (3.80-5.40) m/uL Hgb 7.8 L (11.4-16.0) gm/dL Hct 27.4 L (34.0-46.0) % MCH 23.5 L (25.0-35.0) pg MCHC 28.7 L (31.0-37.0) g/dL RDW 20.1 H (11.5-15.5) % Plt Count 615 H (150-450) k/uL Sodium 134 L (137-145) mmol/L Creatinine 0.46 L (0.52-1.04) mg/dL Glucose 106 H (74-99) mg/dL Calcium 8.1 L (8.4-10.2) mg/dL Microbiology - Last 24 Hours (Table) 01/22/24 11:54 Gram Stain - Final Buttock Wound Culture - Final Assessment and Plan (1) Unstageable pressure ulcer of sacral region Current Visit: Yes Status: Acute Code(s): L89.150 - PRESSURE ULCER OF SACRAL REGION, UNSTAGEABLE SNOMED Code(s): 21000720799168885 (2) Abscess of sacrum Current Visit: Yes Status: Acute Code(s): M46.28 - OSTEOMYELITIS OF VERTEBRA, SACRAL AND SACROCOCCYGEAL REGION SNOMED Code(s): 017614241 (3) Sepsis Current Visit: No Status: Acute Code(s): A41.9 - SEPSIS, UNSPECIFIED ORGANISM SNOMED Code(s): 48799391 (4) Bacteremia Current Visit: Yes Status: Acute Code(s): R78.81 - BACTEREMIA SNOMED Code( s): 9453851 Plan: 1patient presented to hospital with sepsis in this patient who did have elevated white count tachycardia and mild hypotension source is infected sacral pressure ulcer and will need to cover for both gram-positive as well as gram- negative pathogen 2-patient is status post surgical debridement of the infected sacral pressure ulcer no cultures were done 3patient also have a positive blood culture with gram-positive cocci ID sensitivities pending blood culture repeated to document clearance 4-patient white count is 13,000 we will order PICC line for outpatient IV antibiotics local wound care with the Medihoney followed by moist dressing change daily Dictation was produced using [employer] dictation software. please excuse any grammatical, word or spelling errors. Time with Patient: Less than 30
[2024-01-25 14:39] VITALS: BMI 11.7
[2024-01-25] MEDS: ALBUTEROL NEBULIZED 2.5 MG/3 ML INHALATION PRN (15:21)
[2024-01-25] MEDS: droNABinol 2.5 MG CAP PO SCH (18:27)
[2024-01-26] MEDS: ACETAMINOPHEN TAB 325 MG TAB PO PRN (08:37)
[2024-01-26 09:32] LABS: HCT 26.5 % (37.2-46.3); HGB 7.6 g/dL (12.0-15.0); MCH 23.5 pg (27.0-32.0); MCHC 28.7 g/dL (32.0-37.0); MCV 81.8 FL (80.0-97.0); Mean Platelet Volume 9.7 FL (9.5-12.2); NRBC Per 100 WBC 0 X 10*3/uL (0.00-0.01); Platelet Count 594 X 10*3/uL (140-440); RBC 3.24 X 10*6/uL (4.10-5.20); RDW 22.7 % (11.5-14.5); WBC 9.88 X 10*3/uL (4.50-10.00)
[2024-01-26 09:41] LABS: Blood Urea Nitrogen 7.3 mg/dL (9.0-27.0); Carbon Dioxide 28.8 mmol/L (21.6-31.8); Chloride 102 mmol/L (96-109); Glucose 72 mg/dL (70-110); Potassium 4.4 mmol/L (3.5-5.5); Sodium 138 mmol/L (135-145)
[2024-01-26 09:42] LABS: Calcium 8.1 mg/dL (8.7-10.3)
--- NOTE | 2024-01-26 14:19 | P.PN ---
Subjective Progress Note Date: 01/26/24 Principal diagnosis: Hospital course: Patient is a 78 year old female with past medical history of asthma, CAD, COPD, GERD, hyperlipidemia, hypertension, history of SVT and a recent left proximal femur periprosthetic fracture presented to the ED from her [facility] due to elevated white blood cell count. Patient has a severe sacral wound since 1 week. Patient mentions she was admitted in the hospital recently for a left proximal femur periprosthetic fracture that was managed conservatively. She does complain of pain on her hips that isn't getting better. Upon discharge from the hospital she [facility]. She mentions not having good strength, which is why she is lying in the bed most of the day. Two days ago whe n she tried to ambulate using the walker she had a fall. She fell prone, didn't lose consciousness but mentions hitting her head. She was not able to get up on her own and was lying on the floor for 1 hour before she had help available. Addtionally, she states using 2L oxygen at home throughout the day. She also reports having shortness of breath, coughing with dark green phlegm production and constipation for which she usually take MiraLAX at home. Denies fever, chills, chest pain, abdominal pain, nausea, vomiting, dysuria, hematuria, hematochezia, melena, headache, blurry vision, double vision, slurring of speech. ED documentation reviewed. In the ED patient was treated with nebulizer milligram, dextrose, Austin, insulin, ondansetron, Zosyn, 0.9 normal saline, calcium gluconate. Vitals on admission T 97.6 F, ME 96 bpm, RR 20, BP 106/63, O2 sat 96% on 3 L nasal cannula EKG independently interpreted as sinus rhythm, rate 95 bpm, QTc [address] shows fairly moderate-sized posterior sacral thin-walled fluid collection having internal foci of air worrisome for abscess, No definitive bony destruction to suggest acute osteomyelitis but fluid collection does abut posterior margin of the lower sacrum Labs on admission show WBC 29.4, hemoglobin 7.2, hematocrit 25.7, MCV 74.3, RDW 19.4, platelet count 971, ESR more than 130, sodium 128, potassium 5.4, BUN 43, creatinine 0.75, ALP 129, CRP 51.6, lipase 11, lactic acid 1.5, glucose 57 UA shows specific gravity 1.050 01/23/24: No acute events overnight. She underwent debridement of the ulcer today. Respiratory panel was negative. Her pulse today is 123. pro-BNP is 2360. Labs today show WBC 28.2 hemoglobin 7.1, MCV 77.9, RDW 19.6, platelet count 826, sodium 134, potassium 4.7, BUN 21, creatinine 0.46. Blood culture shows no growth after 24 hours. Gram stain of the sacral ulcer shows many PMN and gram positive cocci. Chest Xray shows COPD with mild diffuse interstitial infiltrate worsened from 01/11/2024 consider atypical or COVID-pneumonia/interstitial pneumonitis/sequel of CHF. Possible trace right pleural effusion. Attention on follow-up to exclude underlying left midlung pulmonary nodule. 01/24/24: Patient seen and examined at bedside today. She received 1 unit PRBC yesterday. No new complaints today. Blood culture shows gram positive cocci in clusters. 01/25/24: Patient evaluated at bedside. Her pulse today is 117 bpm. She is currently on 3L O2 via nasal cannula. She reports of pain at the ulcer site. Denies shortness of breath. Labs today show WBC 13.6, hemoglobin 7.8, platelet count 615, sodium 134. Aerobic wound culture shows few normal skin french. 01/26/24: Patient examined today. No acute events overnight. She is currently saturating well on 3L O2 via nasal cannula. No new complaints today. Labs today show hemoglobin 7.6 MCV 81.8, platelet count 594, sodium 138, BUN 7.3, cre atinine 0.2. Review of systems: Pertinent positives and negatives as discussed in HPI, a complete review of systems was performed and all other systems are negative. Vitals: Signs Reviewed Physical examination: General: nontoxic, no distress, appears at stated age Derm: warm, dry, intact Head: atraumatic, normocephalic, symmetric Eyes: EOMI, anicteric sclera Mouth: no lip lesion, mucus membranes moist Cardiovascular: S1 S2 reg, no murmur Lungs: CTA bilateral, no rhonchi, no rales, no accessory muscle use Abdominal: soft, non-tender to palpation Extremities: No cyanosis, clubbing, or pedal edema. Neuro: Alert, Oriented, 4/5 in all 4 extremities Psych: well appearing, appropriate affect Assessment/Plan: Patient is a 78 year old female with PMH of asthma, CAD, COPD, GERD, hyperlipidemia, hypertension, history of SVT and a recent left proximal femur periprosthetic fracture presented to the ED with sacral wound. She has been admitted for sacral decubitus ulcer and she underwent debridement of the ulcer of necrotic skin and fat and muscle along with 1 unit PRBC transfusion on 01/23/24. She was managed with Vancomycin and Unasyn. Blood culture repeated to document clearance. PICC line to be placed for outpatient management. Vancomycin is now discontinued. Active: #. Sacral decubitus ulcer,unstageable #. Sepsis #. S/p debridement of sacral decubitus ulcer of necrotic skin and fat and muscle SIRS criteria, WBC 29.4, P 107, RR 20, BP 98/[address] shows fairly moderate-sized posterior sacral thin-walled fluid collection having internal foci of air worrisome for abscess, No definitive bony destruction to suggest acute osteomyelitis but fluid collection does abut posterior margin of the lower sacrum Blood culture shows gram positive cocci in clusters. Gram stain of the sacral ulcer shows many PMN and gram positive cocci Continue Unasyn 3 gm IVPB Q6HR Vancomycin discontinued Continue Acetaminophemn 650 mg Q6HR PRN, Austin 5-325 Q4HR PRN, Dilaudid 1 mg IVP Q3HR PRN for pain management PICC line for outpatient management Local wound care with medihoney followed by moist dressing changed daily per ID Repeat Blood culture to document clearance. General surgery is following ID is following PT recommends patient requiring / care #. Anorexia Continue Dronabinol 5 mg PO BID # Microcytic anemia S/p 1 unit PRBC 01/23/24 Monitor CBC #. Nausea and vomiting Continue Ondansetron 4 mg IVP Q8HR PRN Chronic: #. COPD, not in exacerbartion Wean off oxygen Continue supplemental oxygen, currently at 4L via nasal cannula Continue Albuterol 2 puff Q4H PRN, Duoneb Q6H, Singulair 10 mg PO HS #. GERD Continue Pantoprazole 20 mg PO daily #. Anxiety/Depression Continue Sertraline 200 mg PO daily #. Hyperlipidemia Continue Atorvastatin 20 mg PO HS Resolved: #. Hyperkalemia F: None E: Replete as required N: High protein/High calorie diet A: DVT prophylaxis: Lovenox 40 mg SQ daily GI prophylaxis: Pantoprazole 40 mg PO daily Objective - Vital Signs Vital signs: Vital Signs Temp 97.4 F L 01/26/24 07:43 Pulse 82 01/26/24 08:01 Resp 16 01/26/24 07:43 BP 118/75 01/26/24 07:43 Pulse Ox 100 01/26/24 07:49 FiO2 Intake & Output 01/25/24 01/26/24 01/26/24 18:59 06:59 18:59 Intake Total 100 400 Output Total 200 Balance -100 400 Weight 30 kg Intake: Intake, IV Titration 100 400 Amount Ampicillin-Sulbactam 3 gm 100 200 In Sodium Chloride 0.9% 100 ml @ 200 mls/hr IVPB Q6HR [facility] Rx#:[id number] IV Fluid Continuation 1, 200 000 ml @ 0 mls/hr IV .[facility] Rx#:[id number] Output: Urine 200 Other: Voiding Method Incontinent Incontinent External Catheter External Catheter - Labs CBC & Chem 7: 01/26/24 04:58 01/26/24 04:58 Labs: Microbiology - Last 24 Hours (Table) 01/21/24 20:29 Blood Culture Gram Stain - Final Blood Blood Culture - Preliminary
--- NOTE | 2024-01-26 15:31 | P.PN ---
Subjective Progress Note Date: 01/26/24 CHIEF COMPLAINT: Sacral ulcer HISTORY OF PRESENT ILLNESS: The patient is a 78-year-old female sacral [facility] [place] [facility]. Patient has been transferred from stepdown unit to the medical surgical floor. She is resting comfortably. No new issues. Wound care management as per infectious disease provider currently wet-to-dry dressings. ROS: No reports of nausea and vomiting. No fevers or chills. No new chest pain. PHYSICAL EXAM: VITAL SIGNS: Reviewed CONSTITUTIONAL: Well developed and in no acute distress. EYES: Conjuctivae without sclera icterus. Extraocular movements grossly intact. HEAD, EARS, NOSE, THROAT: Moist buccal mucosa. Head is atraumatic, normocephalic. Hears conversational speech. No nasal drainage. RESPIRATORY: Non-labored respirations and equal bilateral excursions. CARDIOVASCULAR: Regular rate. ABDOMEN: No peritonitis. MUSCULOSKELETAL: No gross deformity of the lower extremities noted. No clubbing. No cyanosis. SKIN: Good skin turgor. Well perfused. Dressing intact. NEUROLOGIC: Cranial nerves II through XII grossly intact. No focal or latera lizing signs. PSYCH: Alert to person. CLINICAL LABS: Reviewed. WBC now normal down from 13.55-9.88. Hemoglobin stable 7.6-7.8, anemia MICRO: Gram stain demonstrating normal french from wound culture 01/22/2024 ASSESSMENT: 1. Sacral stage III ulcer 2. Sepsis with leukocytosis 3. Chronic obstructive pulmonary disease 4. Anemia 5. Underweight, BMI 11.7 PLAN: 1. Continue wet-to-dry dressing for wound. At some point may benefit from wound VAC once wound bed is dry. 2. Recheck of patient's weight and height as BMI demonstrates 11.7 Objective - Vital Signs Vital signs: Vital Signs Temp 97.5 F L 01/26/24 11:48 Pulse 80 01/26/24 12:39 Resp 16 01/26/24 11:48 BP 102/66 01/26/24 11:48 Pulse Ox 97 01/26/24 11:48 FiO2 Intake & Output 01/25/24 01/26/24 01/26/24 18:59 06:59 18:59 Intake Total 100 400 Output Total 200 Balance -100 400 Weight 30 kg Intake: Intake, IV Titration 100 400 Amount Ampicillin-Sulbactam 3 gm 100 200 In Sodium Chloride 0.9% 100 ml @ 200 mls/hr IVPB Q6HR [facility] Rx#:[id number] IV Fluid Continuation 1, 200 000 ml @ 0 mls/hr IV .[facility] Rx#:[id number] Output: Urine 200 Other: Voiding Method Incontinent Incontinent Incontinent External Catheter External Catheter External Catheter - Labs CBC & Chem 7: 01/26/24 04:58 01/26/24 04:58 Labs: Abnormal Lab Results - Last 24 Hours (Table) 01/26/24 01/26/24 Range/Units 04:58 04:58 RBC 3.24 L (4.10-5.20) X 10*6/uL Hgb 7.6 L (12.0-15.0) g/dL Hct 26.5 L (37.2-46.3) % MCH 23.5 L (27.0-32.0) pg MCHC 28.7 L (32.0-37.0) g/dL RDW 22.7 H (11.5-14.5) % Plt Count 594 H (140-440) X 10*3/uL BUN 7.3 L (9.0-27.0) mg/dL Creatinine 0.2 L (0.6-1.5) mg/dL BUN/Creatinine Ratio 36.50 H (12.00-20.00) Ratio Calcium 8.1 L (8.7-10.3) mg/dL Microbiology - Last 24 Hours (Table) 01/21/24 20:29 Blood Culture Gram Stain - Final Blood Blood Culture - Preliminary
--- NOTE | 2024-01-26 16:27 | P.PN ---
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 Patient is status post debridement of the sacral pressure ulcer of the necrotic skin and fat and muscle no cultures were done On today's evaluation that is 01/26/2024, the patient continues to be afebrile, the patient is on 3 L nasal cannula and breathing comfortably, the Pt denies having any chest pain or cough, the patient denies having any abdominal pain no vomiting or any diarrhea has been reported by the nursing staff. Patient white count normalized to 9.88 creatinine 0.2 cultures so far negative Objective - Vital Signs Vital signs: Vital Signs Temp 97.5 F L 01/26/24 11:48 Pulse 80 01/26/24 12:39 Resp 16 01/26/24 11:48 BP 102/66 01/26/24 11:48 Pulse Ox 97 01/26/24 11:48 FiO2 Intake & Output 01/25/24 01/26/24 01/26/24 18:59 06:59 18:59 Intake Total 100 400 Output Total 200 Balance -100 400 Weight 30 kg Intake: Intake, IV Titration 100 400 Amount Ampicillin-Sulbactam 3 gm 100 200 In Sodium Chloride 0.9% 100 ml @ 200 mls/hr IVPB Q6HR [facility] Rx#:[id number] IV Fluid Continuation 1, 200 000 ml @ 0 mls/hr IV [facility] Rx#:[id number] Output: Urine 200 Other: Voiding Method Incontinent Incontinent Incontinent External Catheter External Catheter External Catheter - Exam GENERAL DESCRIPTION: An elderly female lying in bed in no distress RESPIRATORY SYSTEM: Unlabored breathing , decreased breath sounds at bases HEART: S1 S2 regular rate and rhythm , ABDOMEN: Soft , no tenderness Patient did have a stage IV sacral wound currently dressed EXTREMITIES: No edema feet - Labs CBC & Chem 7: 01/26/24 04:58 01/26/24 04:58 Labs: Abnormal Lab Results - Last 24 Hours (Table) 01/26/24 01/26/24 Range/Units 04:58 04:58 RBC 3.24 L (4.10-5.20) X 10*6/uL Hgb 7.6 L (12.0-15.0) g/dL Hct 26.5 L (37.2-46.3) % MCH 23.5 L (27.0-32.0) pg MCHC 28.7 L (32.0-37.0) g/dL RDW 22.7 H (11.5-14.5) % Plt Count 594 H (140-440) X 10*3/uL BUN 7.3 L (9.0-27.0) mg/dL Creatinine 0.2 L (0.6-1.5) mg/dL BUN/Creatinine Ratio 36.50 H (12.00-20.00) Ratio Calcium 8.1 L (8.7-10.3) mg/dL Microbiology - Last 24 Hours (Table) 01/21/24 20:29 Blood Culture Gram Stain - Final Blood Blood Culture - Preliminary Assessment and Plan (1) Unstageable pressure ulcer of sacral region Current Visit: Yes Status: Acute Code(s): L89.150 - PRESSURE ULCER OF SACRAL REGION, UNSTAGEABLE SNOMED Code(s): 79230093986267047 (2) Abscess of sacrum Current Visit: Yes Status: Acute Code(s): M46.28 - OSTEOMYELITIS OF VERTEBRA, SACRAL AND SACROCOCCYGEAL REGION SNOMED Code(s): 367561804 (3) Sepsis Current Visit: No Status: Acute Code(s): A41.9 - SEPSIS, UNSPECIFIED ORGANISM SNOMED Code(s): 55406654 (4) Bacteremia Current Visit: Yes Status: Acute Code(s): R78.81 - BACTEREMIA SNOMED Code(s): 6652258 Plan: 1patient presented to hospital with sepsis in this patient who did have elevated white count tachycardia and mild hypotension source is infected sacral pressure ulcer and will need to cover for both gram-positive as well as gram- negative pathogen 2-patient is status post surgical debridement of the infected sacral pressure ulcer no cultures were done 3patient also have a positive blood culture with gram-positive cocci ID sensitivities pending blood culture repeated to document clearance 4-patient remains to be afebrile and the patient white count is normalized culture negative for any resistant pathogen she is on Unasyn plan is for at least 6-week course of IV Unasyn on discharge Dictation was produced using [email or web address] software. please excuse any grammatical, word or spelling errors. Time with Patient: Less than 30
[2024-01-27 05:42] LABS: African American GFR (CKD) >90 (>60 ml/min/1.73 sqM); Anion Gap 2 mmol/L; Blood Urea Nitrogen 6 mg/dL (7-17); Calcium 7.7 mg/dL (8.4-10.2); Carbon Dioxide 29 mmol/L (22-30); Chloride 102 mmol/L (98-107); Glucose 65 mg/dL (74-99); Non-African American GFR(CKD) >90 (>60 ml/min/1.73 sqM); Sodium 133 mmol/L (137-145)
[2024-01-27 05:46] LABS: Anisocytosis Moderate; HCT 33.3 % (34.0-46.0); Hypochromasia Marked; MCH 24.4 pg (25.0-35.0); MCHC 29.7 g/dL (31.0-37.0); MCV 82.4 fL (80.0-100.0); Microcytosis Slight; Platelet Count 559 k/uL (150-450); Poikilocytosis Slight; RBC 4.04 m/uL (3.80-5.40); RDW 20.1 % (11.5-15.5); WBC 12.7 k/uL (3.8-10.6)
[2024-01-27 05:48] LABS: HGB 9.9 gm/dL (11.4-16.0)
--- NOTE | 2024-01-27 15:13 | P.PN ---
Subjective Progress Note Date: 01/27/24 Patient is a 78 year old female with past medical history of asthma, CAD, COPD, GERD, hyperlipidemia, hypertension, history of SVT and a recent left proximal femur periprosthetic fracture presented to the ED from her long-term due to elevated white blood cell count. Patient has a severe sacral wound since 1 week. Patient mentions she was admitted in the hospital recently for a left proximal femur periprosthetic fracture that was managed conservatively. She does complain of pain on her hips that isn't getting better. Upon discharge from the hospital she went to the long-term for rehabilitation. She mentions not having good strength, which is why she is lying in the bed most of the day. Two days ago when she tried to ambulate using the walker she had a fall. She fell prone, didn't lose consciousness but mentions hitting her head. She was not able to get up on her own and was lying on the floor for 1 hour before she had help available. Addtionally, she states using 2L oxygen at home throughout the day. She also reports having shortness of breath, coughing with dark green phlegm production and constipation for which she usually take MiraLAX at home. Denies fever, chills, chest pain, abdominal pain, nausea, vomiting, dysuria, hematuria, hematochezia, melena, headache, blurry vision, double vision, slurring of speech. ED documentation reviewed. In the ED patient was treated with nebulizer milligram, dextrose, [place], insulin, ondansetron, Zosyn, 0.9 normal saline, calcium gluconate. Vitals on admission T 97.6 F, DC 96 bpm, RR 20, BP 106/63, O2 sat 96% on 3 L nasal cannula EKG independently interpreted as sinus rhythm, rate 95 bpm, QTc [address] shows fairly moderate-sized posterior sacral thin-walled fluid collection having internal foci of air worrisome for abscess, No definitive bony destruction to suggest acute osteomyelitis but fluid collection does abut posterior margin of the lower sacrum Labs on admission show WBC 29.4, hemoglobin 7.2, hematocrit 25.7, MCV 74.3, RDW 19.4, platelet count 971, ESR more than 130, sodium 128, potassium 5.4, BUN 43, creatinine 0.75, ALP 129, CRP 51.6, lipase 11, lactic acid 1.5, glucose 57 UA shows specific gravity 1.050 01/23/24: No acute events overnight. She underwent debridement of the ulcer today. Respiratory panel was negative. Her pulse today is 123. pro-BNP is 2360. Labs today show WBC 28.2 hemoglobin 7.1, MCV 77.9, RDW 19.6, platelet count 826, sodium 134, potassium 4.7, BUN 21, creatinine 0.46. Blood culture shows no growth after 24 hours. Gram stain of the sacral ulcer shows many PMN and gram positive cocci. Chest Xray shows COPD with mild diffuse interstitial infiltrate worsened from 01/11/2024 consider atypical or COVID-pneumonia/interstitial pneumonitis/sequel of CHF. Possible trace right pleural effusion. Attention on follow-up to exclude underlying left midlung pulmonary nodule. 01/24/24: Patient seen and examined at bedside today. She received 1 unit PRBC yesterday. No new complaints today. Blood culture shows gram positive cocci in clusters. 01/25/24: Patient evaluated at bedside. Her pulse today is 117 bpm. She is currently on 3L O2 via nasal cannula. She reports of pain at the ulcer site. Denies shortness of breath. Labs today show WBC 13.6, hemoglobin 7.8, platelet count 615, sodium 134. Aerobic wound culture shows few normal skin french. 01/26/24: Patient examined today. No acute events overnight. She is currently saturating well on 3L O2 via nasal cannula. No new complaints today. Labs today show hemoglobin 7.6 MCV 81.8, platelet count 594, sodium 138, BUN 7.3, creatinine 0.2. 01/27/2024 Patient is elevated today in follow-up in the medical floor. She is postoperative surgical debridement of the sacral decubitus ulceration. Wound cultures final blood cultures are pending. Her preliminary blood culture shows gram-positive cocci and currently pending at this time. Labs today reveal a white blood cell count 12.7, hemoglobin 9.9, sodium 133, BUN of 6, creatinine 0.33. Review of Systems Constitutional: Denied any fatigue denied any fever. Cardio vascular: denied any chest pain, palpitations Gastrointestinal: denied any nausea, vomiting, diarrhea Pulmonary: Denied any shortness of breath cough Neurologic denied any new focal deficits All inpatient medications were reviewed and appropriate changes in these medications as dictated in the interval history and assessment and plan. PHYSICAL EXAMINATION: GENERAL: The patient is alert and oriented x3, not in any acute distress. Well developed, well nourished. HEENT: Pupils are round and equally reacting to light. EOMI. No scleral icterus. No conjunctival pallor. Normocephalic, atraumatic. No pharyngeal erythema. No thyromegaly. CARDIOVASCULAR: S1 and S2 present. No murmurs, rubs, or gallops. PULMONARY: Chest is clear to auscultation, no wheezing or crackles. ABDOMEN: Soft, nontender, nondistended, normoactive bowel sounds. No palpable organomegaly. MUSCULOSKELETAL: No joint swelling or deformity. EXTREMITIES: No cyanosis, clubbing, or pedal edema. NEUROLOGICAL: Gross neurological examination did not reveal any focal deficits. SKIN: No rashes. Assessment and plan Sacral decubitus ulceration unstageable with sepsis present on admission Patient is s/p surgical debridement of the sacral decubitus ulcer there was necrotic skin fat and muscle. Gram positive bacteremia likely skin source Anorexia continue dronabinol as an appetite stimulant Microcytic anemia status post 1 unit of packed red blood cells COPD with no acute exacerbation Gastroesophageal reflux disease Anxiety/depression Hyperlipidemia Hypovolemic hyponatremia Patient is continued on 4 L of oxygen via nasal cannula with saturations of 100%. Patient's oxygenation can be weaned and likely can be placed on room air. Hemoglobin stable today at 9.9 continue to monitor blood counts and transfuse for hemoglobin less than 7 Continue IV Unasyn patient is scheduled to get a PICC line placed hopefully t omorrow and will need 6 weeks of IV antibiotic therapy on discharge Continue off IV fluids at this time repeat blood work in the morning Wound care with wet-to-dry dressing for wound patient may benefit from a wound VAC once the wound bed is dry General Surgery following Pending final blood cultures at this time. The impression and plan of care has been dictated by Kelly Forrest, Nurse Practitioner as directed. Dr. Mariely MD I have performed a history and physical examination and medical decision making of this patient, discussed the same with the dictator, and agree with the dictators assessment and plan as written, documented as a scribe. Based on total visit time, I have performed more than 50% of this visit. Objective - Vital Signs Vital signs: Vital Signs Temp 97.5 F L 01/27/24 11:32 Pulse 73 01/27/24 11:32 Resp 16 01/27/24 11:32 BP 118/76 01/27/24 11:32 Pulse Ox 100 01/27/24 11:32 FiO2 Intake & Output 01/26/24 01/27/24 01/27/24 18:59 06:59 18:59 Intake Total 222 Output Total 350 250 Balance -350 -28 Intake: Oral 222 Output: Urine 350 250 Other: Voiding Method Incontinent Incontinent Incontinent External Catheter External Catheter External Catheter # Voids 1 # Bowel Movements 1 - Labs CBC & Chem 7: 01/27/24 04:22 01/27/24 04:22 Labs: Abnormal Lab Results - Last 24 Hours (Table) 01/27/24 01/27/24 Range/Units 04:22 04:22 WBC 12.7 H (3.8-10.6) k/uL Hgb 9.9 L D (11.4-16.0) gm/dL Hct 33.3 L (34.0-46.0) % MCH 24.4 L (25.0-35.0) pg MCHC 29.7 L (31.0-37.0) g/dL RDW 20.1 H (11.5-15.5) % Plt Count 559 H (150-450) k/uL Sodium 133 L (137-145) mmol/L BUN 6 L (7-17) mg/dL Creatinine 0.33 L (0.52-1.04) mg/dL Glucose 65 L (74-99) mg/dL Calcium 7.7 L (8.4-10.2) mg/dL Microbiology - Last 24 Hours (Table) 01/25/24 13:40 Blood Culture - Preliminary Blood Assessment and Plan Time with Patient: Less than 30
--- NOTE | 2024-01-27 15:21 | P.PN ---
Subjective Progress Note Date: 01/27/24 CHIEF COMPLAINT: Sacral ulcer HISTORY OF PRESENT ILLNESS: The patient is a 78-year-old female sacral d ebridement to [facility] [place] 01/23/2024. She is resting in bed. She denies any moderate pain. She missed eating lunch. No reports of fevers or chills. ROS: No reports of nausea and vomiting. No fevers or chills. No new chest pain. PHYSICAL EXAM: VITAL SIGNS: Reviewed CONSTITUTIONAL: Well developed and in no acute distress. EYES: Conjuctivae without sclera icterus. Extraocular movements grossly intact. HEAD, EARS, NOSE, THROAT: Moist buccal mucosa. Head is atraumatic, normocephalic. Hears conversational speech. No nasal drainage. RESPIRATORY: Non-labored respirations and equal bilateral excursions. CARDIOVASCULAR: Regular rate. ABDOMEN: No peritonitis. MUSCULOSKELETAL: No gross deformity of the lower extremities noted. No clubbing. No cyanosis. SKIN: Good skin turgor. Well perfused. Dressing intact. NEUROLOGIC: Cranial nerves II through XII grossly intact. No focal or lateral izing signs. PSYCH: Alert to person. Likewise, hemoglobin of 7.6-9.9 CLINICAL LABS: Reviewed. WBC has rebounded from normal 9.88 up to 12.7. Hemoglobin up from 7.6-9.9. MICRO: Gram stain demonstrating normal french from wound culture 01/22/2024 ASSESSMENT: 1. Sacral stage III ulcer 2. Sepsis with leukocytosis 3. Chronic obstructive pulmonary disease 4. Anemia 5. Underweight, BMI 11.7 PLAN: 1. I had extended discussion regarding dietary adjustments as the patient's BMI is less than 18. Will adjust diet to high-protein high caloric diet, grounded as she is edentulous. 2. WBC has trended upward however hemoglobin also trending upward questionable for spuriously result. Repeat CBC advised. Objective - Vital Signs Vital signs: Vital Signs Temp 97.5 F L 01/27/24 11:32 Pulse 73 01/27/24 11:32 Resp 16 01/27/24 11:32 BP 118/76 01/27/24 11:32 Pulse Ox 100 01/27/24 11:32 FiO2 Intake & Output 01/26/24 01/27/24 01/27/24 18:59 06:59 18:59 Intake Total 222 Output Total 350 250 Balance -350 -28 Intake: Oral 222 Output: Urine 350 250 Other: Voiding Method Incontinent Incontinent Incontinent External Catheter External Catheter External Catheter # Voids 1 # Bowel Movements 1 - Labs CBC & Chem 7: 01/27/24 04:22 01/27/24 04:22 Labs: Abnormal Lab Results - Last 24 Hours (Table) 01/27/24 01/27/24 Range/Units 04:22 04:22 WBC 12.7 H (3.8-10.6) k/uL Hgb 9.9 L D (11.4-16.0) gm/dL Hct 33.3 L (34.0-46.0) % MCH 24.4 L (25.0-35.0) pg MCHC 29.7 L (31.0-37.0) g/dL RDW 20.1 H (11.5-15.5) % Plt Count 559 H (150-450) k/uL Sodium 133 L (137-145) mmol/L BUN 6 L (7-17) mg/dL Creatinine 0.33 L (0.52-1.04) mg/dL Glucose 65 L (74-99) mg/dL Calcium 7.7 L (8.4-10.2) mg/dL Microbiology - Last 24 Hours (Table) 01/25/24 13:40 Blood Culture - Preliminary Blood
[2024-01-28 09:02] LABS: Anisocytosis Moderate; HCT 39.6 % (34.0-46.0); HGB 11.2 gm/dL (11.4-16.0); Hypochromasia Marked; MCH 23.2 pg (25.0-35.0); MCHC 28.3 g/dL (31.0-37.0); MCV 81.9 fL (80.0-100.0); Mean Platelet Volume 6.8; Microcytosis Slight; Platelet Count 822 k/uL (150-450); Poikilocytosis Slight; RBC 4.84 m/uL (3.80-5.40); RDW 20.7 % (11.5-15.5); WBC 14.6 k/uL (3.8-10.6)
[2024-01-28 09:27] LABS: African American GFR (CKD) >90 (>60 ml/min/1.73 sqM); Anion Gap 5 mmol/L; Blood Urea Nitrogen 10 mg/dL (7-17); Calcium 8.2 mg/dL (8.4-10.2); Carbon Dioxide 31 mmol/L (22-30); Chloride 97 mmol/L (98-107); Glucose 70 mg/dL (74-99); Non-African American GFR(CKD) >90 (>60 ml/min/1.73 sqM); Potassium 3.6 mmol/L (3.5-5.1); Sodium 133 mmol/L (137-145)
--- NOTE | 2024-01-28 12:07 | P.PN ---
Subjective Progress Note Date: 01/28/24 SURGICAL PROGRESS NOTE CHIEF COMPLAINT: Sacral decubitus ulcer HISTORY OF PRESENT ILLNESS: Patient is status post debridement of sacral decubitus ulcer on 01/23/2024. Patient has no new complaints. Nursing staff has been doing local wound care to the decubitus ulcer. Afebrile. WBC is up from 12.7 to 14.6 PHYSICAL EXAM: VITAL SIGNS: Reviewed. GENERAL: Well-developed in no acute distress. ABDOMEN: Soft. Nondistended. Nontender. NEUROLOGIC: Awake and alert ASSESSMENT: 1. Sacral decubitus ulcer status post debridement PLAN: -Continue local wound care -Continue antibiotics per ID service -Recommend offloading Physician [employer] Repairer note has been reviewed by physician. Signing provider agrees with the documented findings, assessment, and plan of care. Objective - Vital Signs Vital signs: Vital Signs Temp 97.4 F L 01/28/24 07:32 Pulse 69 01/28/24 07:32 Resp 15 01/28/24 07:32 BP 110/65 01/28/24 07:32 Pulse Ox 92 L 01/28/24 08:24 FiO2 Intake & Output 01/27/24 01/28/24 01/28/24 18:59 06:59 18:59 Intake Total 240 320 Output Total 400 200 Balance -160 120 Intake: Intake, IV Titration 240 200 Amount Ampicillin-Sulbactam 3 gm 200 In Sodium Chloride 0.9% 100 ml @ 200 mls/hr IVPB Q6HR [facility] Rx#:[id number] IV Fluid Continuation 1, 240 000 ml @ 0 mls/hr IV .STK -MED ONE Rx#:[id number] Oral 120 Output: Urine 400 200 Other: Voiding Method Incontinent Incontinent Incontinent External Catheter External Catheter External Catheter # Voids 1 # Bowel Movements 1 - Labs CBC & Chem 7: 01/28/24 08:24 01/28/24 08:24 Labs: Abnormal Lab Results - Last 24 Hours (Table) 01/28/24 01/28/24 Range/Units 08:24 08:24 WBC 14.6 H (3.8-10.6) k/uL Hgb 11.2 L (11.4-16.0) gm/dL MCH 23.2 L (25.0-35.0) pg MCHC 28.3 L (31.0-37.0) g/dL RDW 20.7 H (11.5-15.5) % Plt Count 822 H (150-450) k/uL Sodium 133 L (137-145) mmol/L Chloride 97 L (98-107) mmol/L Carbon Dioxide 31 H (22-30) mmol/L Creatinine 0.40 L (0.52-1.04) mg/dL Glucose 70 L (74-99) mg/dL Calcium 8.2 L (8.4-10.2) mg/dL Microbiology - Last 24 Hours (Table) 01/22/24 11:54 Anaerobic Culture - Final Buttock Finegoldia magna Peptoniphilus harei grp Prevotella disiens 01/25/24 13:40 Blood Culture - Preliminary Blood
[2024-01-28] MEDS: IPRATROPIUM-ALBUTEROL 3 ML NEB INHALATION SCH (12:11)
--- NOTE | 2024-01-28 16:39 | P.PN ---
Subjective Progress Note Date: 01/27/24 Principal diagnosis: Reason for follow-up is infected sacral pressure ulcer Patient is a 78-year-old female with a past medical history significant for hypertension hyperlipidemia pneumonia COPD asthma patient is a [facility] resident and the patient has been sent to the ER concerning for possible sepsis as the patient was noted to have elevated white count of 30 and did have a sacral wound with significant amount of necrotic tissue with abnormal CT suggestive of abscess and possible source of infection. Patient is status post debridement of the sacral pressure ulcer of the necrotic skin and fat and muscle no cultures were done On today's evaluation that is 01/27/2024, Patient is afebrile patient is currently on 2 L nasal cannula and denies having any shortness of breath, the patient denies any chest pain or cough, the patient denies any nausea vomiting did not have any abdominal pain and no diarrhea. Patient white count slightly up to 12.7, creatinine 0.33 blood culture repeat has been negative Objective - Vital Signs Vital signs: Vital Signs Temp 97.5 F L 01/27/24 11:32 Pulse 73 01/27/24 11:32 Resp 16 01/27/24 11:32 BP 118/76 01/27/24 11:32 Pulse Ox 100 01/27/24 11:32 FiO2 Intake & Output 01/26/24 01/27/24 01/27/24 18:59 06:59 18:59 Intake Total 222 Output Total 350 250 Balance -350 -28 Intake: Oral 222 Output: Urine 350 250 Other: Voiding Method Incontinent Incontinent Incontinent External Catheter External Catheter External Catheter # Voids 1 # Bowel Movements 1 - Exam GENERAL DESCRIPTION: An elderly female lying in bed in no distress RESPIRATORY SYSTEM: Unlabored breathing , decreased breath sounds at bases HEART: S1 S2 regular rate and rhythm , ABDOMEN: Soft , no tenderness Patient did have a stage IV sacral wound currently dressed EXTREMITIES: No edema feet - Labs CBC & Chem 7: 01/28/24 08:24 01/28/24 08:24 Labs: Abnormal Lab Results - Last 24 Hours (Table) 01/27/24 01/27/24 Range/Units 04:22 04:22 WBC 12.7 H (3.8-10.6) k/uL Hgb 9.9 L D (11.4-16.0) gm/dL Hct 33.3 L (34.0-46.0) % MCH 24.4 L (25.0-35.0) pg MCHC 29.7 L (31.0-37.0) g/dL RDW 20.1 H (11.5-15.5) % Plt Count 559 H (150-450) k/uL Sodium 133 L (137-145) mmol/L BUN 6 L (7-17) mg/dL Creatinine 0.33 L (0.52-1.04) mg/dL Glucose 65 L (74-99) mg/dL Calcium 7.7 L (8.4-10.2) mg/dL Microbiology - Last 24 Hours (Table) 01/25/24 13:40 Blood Culture - Preliminary Blood Assessment and Plan (1) Unstageable pressure ulcer of sacral region Current Visit: Yes Status: Acute Code(s): L89.150 - PRESSURE ULCER OF SACRAL REGION, UNSTAGEABLE SNOMED Code(s): 80591275266597020 (2) Abscess of sacrum Current Visit: Yes Status: Acute Code(s): M46.28 - OSTEOMYELITIS OF VERTEBRA, SACRAL AND SACROCOCCYGEAL REGION SNOMED Code(s): 990062597 (3) Sepsis Current Visit: No Status: Acute Code(s): A41.9 - SEPSIS, UNSPECIFIED ORGANISM SNOMED Code(s): 10331764 (4) Bacteremia Current Visit: Yes Status: Acute Code(s): R78.81 - BACTEREMIA SNOMED Code(s): 8115011 Plan: 1patient presented to hospital with sepsis in this patient who did have elevated white count tachycardia and mild hypotension source is infected sacral pressure ulcer and will need to cover for both gram-positive as well as gram- negative pathogen 2-patient is status post surgical debridement of the infected sacral pressure ulcer no cultures were done 3patient also have a positive blood culture with gram-positive cocci ID sensitivities pending blood culture repeated to document clearance 4-patient remains to be afebrile and the patient white count is slightly up today, culture negative for any resistant pathogen, will continue Unasyn Dictation was produced using [email or web address] dictation software. please excuse any grammatical, word or spelling errors. Time with Patient: Less than 30
--- NOTE | 2024-01-28 16:40 | P.PN ---
Subjective Progress Note Date: 01/28/24 Principal diagnosis: Reason for follow-up is infected sacral pressure ulcer Patient is a 78-year-old female with a past medical history significant for hypertension hyperlipidemia pneumonia COPD asthma patient is a [facility] resident and the patient has been sent to the ER concerning for possible sepsis as the patient was noted to have elevated white count of 30 and did have a sacral wound with significant amount of necrotic tissue with abnormal CT suggestive of abscess and possible source of infection. Patient is status post debridement of the sacral pressure ulcer of the necrotic skin and fat and muscle no cultures were done On today's evaluation that is 01/28/2024, patient has been afebrile, patient is breathing slightly comfortably and is currently on 2 L nasal cannula oxygen patient denies having any significant cough no chest pain, patient denies nausea vomiting diarrhea reported by the nursing staff and no abdominal pain mention overall not feeling that good today. Nursing staff reported significant stool contamination of her sacral wound. Patient white count is up to 14.6, creatinine 0.40 culture have been finalized with Liborio Hansen Objective - Vital Signs Vital signs: Vital Signs Temp 97.4 F L 01/28/24 07:32 Pulse 69 01/28/24 07:32 Resp 15 01/28/24 07:32 BP 110/65 01/28/24 07:32 Pulse Ox 92 L 01/28/24 08:24 FiO2 Intake & Output 01/27/24 01/28/24 01/28/24 18:59 06:59 18:59 Intake Total 240 320 Output Total 400 200 Balance -160 120 Intake: Intake, IV Titration 240 200 Amount Ampicillin-Sulbactam 3 gm 200 In Sodium Chloride 0.9% 100 ml @ 200 mls/hr IVPB Q6HR [facility] Rx#:[id number] IV Fluid Continuation 1, 240 000 ml @ 0 mls/hr IV .STK -MED ONE Rx#:[id number] Oral 120 Output: Urine 400 200 Other: Voiding Method Incontinent Incontinent Incontinent External Catheter External Catheter External Catheter # Voids 1 # Bowel Movements 1 - Exam GENERAL DESCRIPTION: An elderly female lying in bed in no distress RESPIRATORY SYSTEM: Unlabored breathing , decreased breath sounds at bases HEART: S1 S2 regular rate and rhythm , ABDOMEN: Soft , no tenderness Patient did have a stage IV sacral wound currently dressed EXTREMITIES: No edema feet - Labs CBC & Chem 7: 01/28/24 08:24 12 08:24 Labs: Abnormal Lab Results - Last 24 Hours (Table) 01/28/24 01/28/24 Range/Units 08:24 08:24 WBC 14.6 H (3.8-10.6) k/uL Hgb 11.2 L (11.4-16.0) gm/dL MCH 23.2 L (25.0-35.0) pg MCHC 28.3 L (31.0-37.0) g/dL RDW 20.7 H (11.5-15.5) % Plt Count 822 H (150-450) k/uL Sodium 133 L (137-145) mmol/L Chloride 97 L (98-107) mmol/L Carbon Dioxide 31 H (22-30) mmol/L Creatinine 0.40 L (0.52-1.04) mg/dL Glucose 70 L (74-99) mg/dL Calcium 8.2 L (8.4-10.2) mg/dL Microbiology - Last 24 Hours (Table) 01/22/24 11:54 Anaerobic Culture - Final Buttock Finegoldia magna Peptoniphilus harei grp Prevotella disiens 01/25/24 13:40 Blood Culture - Preliminary Blood Assessment and Plan (1) Unstageable pressure ulcer of sacral region Current Visit: Yes Status: Acute Code(s): L89.150 - PRESSURE ULCER OF SACRAL REGION, UNSTAGEABLE SNOMED Code(s): 64364945819069733 (2) Abscess of sacrum Current Visit: Yes Status: Acute Code(s): M46.28 - OSTEOMYELITIS OF VERTEBRA, SACRAL AND SACROCOCCYGEAL REGION SNOMED Code(s): 156856113 (3) Sepsis Current Visit: No Status: Acute Code(s): A41.9 - SEPSIS, UNSPECIFIED ORGANISM SNOMED Code(s): 51214878 (4) Bacteremia Current Visit: Yes Status: Acute Code(s): R78.81 - BACTEREMIA SNOMED Code(s): 5958031 Plan: 1patient presented to hospital with sepsis in this patient who did have elevated white count tachycardia and mild hypotension source is infected sacral pressure ulcer and will need to cover for both gram-positive as well as gram- negative pathogen 2-patient is status post surgical debridement of the infected sacral pressure ulcer no cultures were done 3patient also have a positive blood culture with gram-positive cocci ID sensitivities pending blood culture repeated to document clearance 4-patient remains to be afebrile and the patient white count is trending up and the patient has developed diarrhea we will check a stool for C. difficile and treat if positive 5we will consult the wound care for possible education the wound VAC that will help decrease contamination of the sacral wound with the stool 6for now continue with Unasyn Dictation was produced using [employer] software. please excuse any grammatical, word or spelling errors.
--- NOTE | 2024-01-28 21:51 | P.PN ---
Progress Note - Text Progress Note Date: 01/28/24 Patient is a 78 year old female with past medical history of asthma, CAD, COPD, GERD, hyperlipidemia, hypertension, history of SVT and a recent left proximal femur periprosthetic fracture presented [facility] the ED from her [facility] due to elevated white blood cell count. Patient has a severe sacral wound since 1 week. Patient mentions she was admitted in the hospital recently for a left proximal femur periprosthetic fracture that was managed conservatively. She does complain of pain on her hips that isn't getting better. Upon discharge from the hospital she went to the [facility] for [facility]. She mentions not having good strength, which is why she is lying in the bed most of the day. Two days ago when she tried to ambulate using the walker she had a fall. She fell prone, didn't lose consciousness but mentions hitting her head. She was not able to get up on her own and was lying on the floor for 1 hour before she had help available. Addtionally, she states using 2L oxygen at home throughout the day. She also reports having shortness of breath, coughing with dark green phlegm production and constipation for which she usually take MiraLAX at home. Denies fever, chills, chest pain, abdominal pain, nausea, vomiting, dysuria, hematuria, hematochezia, melena, headache, blurry vision, double vision, slurring of speech. ED documentation reviewed. In the ED patient was treated with nebulizer milligram, dextrose, [place], insulin, ondansetron, Zosyn, 0.9 normal saline, calcium gluconate. Vitals on admission T 97.6 F, [place] 96 bpm, RR 20, BP 106/63, O2 sat 96% on 3 L nasal cannula EKG independently interpreted as sinus rhythm, rate 95 bpm, QTc [address] shows fairly moderate-sized posterior sacral thin-walled fluid collection having internal foci of air worrisome for abscess, No definitive bony destruction to suggest acute osteomyelitis but fluid collection does abut posterior margin of the lower sacrum Labs on admission show WBC 29.4, hemoglobin 7.2, hematocrit 25.7, MCV 74.3, RDW 19.4, platelet count 971, ESR more than 130, sodium 128, potassium 5.4, BUN 43, creatinine 0.75, ALP 129, CRP 51.6, lipase 11, lactic acid 1.5, glucose 57 UA shows specific gravity 1.050 01/23/24: No acute events overnight. She underwent debridement of the ulcer today. Respiratory panel was negative. Her pulse today is 123. pro-BNP is 2360. Labs today show WBC 28.2 hemoglobin 7.1, MCV 77.9, RDW 19.6, platelet count 826, sodium 134, potassium 4.7, BUN 21, creatinine 0.46. Blood culture shows no growth after 24 hours. Gram stain of the sacral ulcer shows many PMN and gram positive cocci. Chest Xray shows COPD with mild diffuse interstitial infiltrate worsened from 01/11/2024 consider atypical or COVID-pneumonia/interstitial pneumonitis/sequel of CHF. Possible trace right pleural effusion. Attention on follow-up to exclude underlying left midlung pulmonary nodule. 01/24/24: Patient seen and examined at bedside today. She received 1 unit PRBC yesterday. No new complaints today. Blood culture shows gram positive cocci in clusters. 01/25/24: Patient evaluated at bedside. Her pulse today is 117 bpm. She is currently on 3L O2 via nasal cannula. She reports of pain at the ulcer site. Denies shortness of breath. Labs today show WBC 13.6, hemoglobin 7.8, platelet count 615, sodium 134. Aerobic wound culture shows few normal skin french. 01/26/24: Patient examined today. No acute events overnight. She is currently saturating well on 3L O2 via nasal cannula. No new complaints today. Labs today show hemoglobin 7.6 MCV 81.8, platelet count 594, sodium 138, BUN 7.3, creatinine 0.2. 01/27/2024 Patient is elevated today in follow-up in the medical floor. She is postoperative surgical debridement of the sacral decubitus ulceration. Wound cultures final blood cultures are pending. Her preliminary blood culture shows gram-positive cocci and currently pending at this time. Labs today reveal a white blood cell count 12.7, hemoglobin 9.9, sodium 133, BUN of 6, creatinine 0.33. January 28, 2024: I assumed care of the patient today. Eating better. Says is little pain. Oxygen to be tapered off. Consult dietitian for malnutrition. Active Medications Acetaminophen (Acetaminophen Tab 325 Mg Tab) 650 mg PO Q6HR PRN PRN Reason: Mild Pain or Fever > 100.5 Last Admin: 01/26/24 08:37 Dose: 650 mg Hydrocodone Bitart/Acetaminophen (Hydrocodone/Apap 5-325mg 1 Each Tab) 1 each PO Q4HR PRN PRN Reason: Moderate Pain (Scale 4 to 6) Last Admin: 01/28/24 20:05 Dose: 1 each Albuterol Sulfate (Albuterol Nebulized 2.5 Mg/3 Ml) 2.5 mg INHALATION RT-Q4H PRN PRN Reason: Shortness Of Breath Last Admin: 01/25/24 15:21 Dose: 2.5 mg Albuterol/Ipratropium (Ipratropium-Albuterol 3 Ml Neb) 3 ml INHALATION RT-QID [facility] Last Admin: 01/28/24 18:46 Dose: Not Given Alprazolam (Alprazolam 0.5 Mg Tab) 0.5 mg PO Q8H PRN PRN Reason: Anxiety Last Admin: 01/28/24 20:05 Dose: 0.5 mg Aspirin (Aspirin 81 Mg) 81 mg PO DAILY [facility] Last Admin: 01/28/24 08:07 Dose: 81 mg Atorvastatin Calcium (Atorvastatin 20 Mg Tab) 20 mg PO HS [facility] Last Admin: 01/28/24 20:05 Dose: 20 mg Dronabinol (Dronabinol 2.5 Mg Cap) 5 mg PO AC-BID [facility] Last Admin: 01/28/24 17:50 Dose: 5 mg Enoxaparin Sodium (Enoxaparin 40 Mg/0.4 Ml Syringe) 40 mg SQ DAILY [facility] Last Admin: 01/28/24 08:07 Dose: 40 mg Hydromorphone HCl (Hydromorphone 1 Mg/Ml 1 Ml Syringe) 1 mg IVP Q3HR PRN PRN Reason: Severe Pain (7-10) Last Admin: 01/24/24 16:19 Dose: 1 mg Ampicillin Sodium/Sulbactam (Sodium 3 gm/ Sodium Chloride) 100 mls @ 200 mls/hr IVPB Q6HR [facility]; Protocol Last Admin: 01/28/24 17:49 Dose: 200 mls/hr Metoprolol Succinate (Metoprolol Succinate (Er) 50 Mg Tab.Er.24h) 50 mg PO DAILY [facility] Last Admin: 01/28/24 08:07 Dose: 50 mg Montelukast Sodium (Montelukast 10 Mg Tab) 10 mg PO HS [facility] Last Admin: 01/28/24 20:05 Dose: 10 mg Naloxone HCl (Naloxone 0.4 Mg/Ml 1 Ml Vial) 0.2 mg IV Q2M PRN PRN Reason: Opioid Reversal Ondansetron HCl (Ondansetron 4 Mg/2 Ml Vial) 4 mg IVP Q8HR PRN PRN Reason: Nausea And Vomiting Last Admin: 01/23/24 10:15 Dose: 4 mg Pantoprazole Sodium (Pantoprazole 40 Mg Tablet) 40 mg PO AC-BRKFST [facility] Last Admin: 01/28/24 08:07 Dose: 40 mg Sertraline HCl (Sertraline 100 Mg Tab) 200 mg PO DAILY [facility] Last Admin: 01/28/24 08:07 Dose: 200 mg On examination: VITAL SIGNS: [97.4, 74, 18, 128 x 79, 97% on 2 L] GENERAL APPEARANCE: BMI 11.7. Loss of subcutaneous fat prominent bones. Laying in bed. HEENT: Normal external appearance of nose and ear. Oral cavity normal EYES: Pupils equal. Conjunctiva normal. NECK: JVD not raised. Mass not palpable. RESPIRATORY: Respiratory effort increased lungs wheezing, decreased breath sounds CARDIOVASCULAR: First and second sounds normal. No edema. ABDOMEN: Soft. Liver and spleen not palpable. No tenderness. No mass palpable. PSYCHIATRY: Alert and oriented x3. Mood and affect normal. Assessment and plan -Sacral decubitus ulceration unstageable with sepsis present on admission Patient is s/p surgical debridement of the sacral decubitus ulcer there was necrotic skin fat and muscle. -Gram positive bacteremia likely skin source -Anorexia continue dronabinol as an appetite stimulant -Microcytic anemia status post 1 unit of packed red blood cells -COPD with mild exacerbation Add DuoNeb 4 times daily -Gastroesophageal reflux disease Protonix -Anxiety/depression Zoloft. -Hyperlipidemia Lipitor Hypovolemic hyponatremia -No code On IV Unasyn. Being weaned off oxygen. Consult dietitian. DuoNeb added.
--- NOTE | 2024-01-29 12:26 | P.CONS ---
History of Present Illness - Reason for Consult Consult date: 01/29/24 wound care - History of Present Illness This is a 78-year-old patient who is status post debridement of us sacral decubitus ulcer on 01/23/2024. At this time the ulceration is being dressed with honey gel. The wound shows granulation with slough and nonviable tissue. Plan is to utilize negative pressure wound VAC to the site. Patient's past medical history significant for asthma chest pain COPD GERD hyperlipidemia hy pertension and pneumonia. Former smoker. Denies diabetes. Review Of Systems: Constitutional: No fever, no chills, no night sweats. No weight change. No weakness, fatigue or lethargy. No daytime sleepiness. Integumentary:reports wounds, no lesions. No rash or pruritus. No unusual bruising. No change in hair or nails. Physical exam: General Appearance: Alert, cooperative, no distress, appears stated age. Skin: See HPI all other Skin color, texture, tugor normal, no rashes or lesions. Neurologic: Alert oriented x3 Assessment: 1. Stage III pressure ulcer sacrum Plan: 1. Apply negative pressure wound VAC at 125 mmHg with black foam. Utilize drape to periwound. May continue with honey gel until patient is discharged to rehab. Wound VAC can be initiated at rehab. Patient would benefit from advanced wound care and wound care center. Would be happy to see her upon discharge. Thank you for the consultation any questions please contact the wound care center Past Medical History Past Medical History: Asthma, Chest Pain / Angina, COPD, GERD/Reflux, Hyperlipidemia, Hypertension, Pneumonia Additional Past Medical History / Comment(s): oxygen [place] @2L continuous, gallstones, pernicious anemia History of Any Multi-Drug Resistant Organisms: Other MDRO Past Surgical History: Hernia Repair, Joint Replacement, Orthopedic Surgery, Tonsillectomy Additional Past Surgical History / Comment(s): left elbow surgery, abscess in stomach area, abdominial scar tissue, tamie oophorectomy, left knee surgery, left hip replacement Past Anesthesia/Blood Transfusion Reactions: No Reported Reaction Past Psychological History: Anxiety, Depression Smoking Status: Former smoker Past Alcohol Use History: None Reported Past Drug Use History: None Reported - Past Family History Mother Family Medical History: No Reported History Additional Family Medical History / Comment(s): MS Father Family Medical History: CVA/TIA, Myocardial Infarction ([place]) Additional Family Medical History / Comment(s): ETOH Medications and Allergies Home Medications Medication Instructions Recorded Confirmed Type Montelukast Sodium [Singulair] 10 mg PO HS 03/01/16 01/22/24 History Albuterol Sulfate [Ventolin HFA] 2 puff INHALATION RT-Q4H PRN 06/20/21 01/22/24 History Ipratropium/Albuterol Sulfate 1 puff INHALATION RT-QID 06/20/21 01/22/24 History [Combivent Respimat Inhaler] Omeprazole 20 mg PO DAILY 06/20/21 01/22/24 History Sertraline [Zoloft] 200 mg PO DAILY 06/20/21 01/22/24 History Acetaminophen [Tylenol Extra 1,000 mg PO Q6H PRN 11/08/21 01/22/24 History Strength] Metoprolol Succinate (ER) [Toprol 50 mg PO DAILY 02/25/22 01/22/24 History XL] Ipratropium-Albuterol Nebulize 3 ml INHALATION RT-Q6H PRN 02/21/23 01/22/24 His tory [Duoneb 0.5 mg-3 mg/3 ml Soln] Ferrous Sulfate [Iron (65 MG 325 mg PO DAILY 01/07/24 01/22/24 History Elemental)] Mometasone/Formoterol [Dulera 200 2 puff INHALATION RT-BID 01/07/24 01/22/24 History Mcg-5 Mcg Inhaler] Enoxaparin [Lovenox] 40 mg SQ DAILY each 01/10/24 01/22/24 Rx Lactulose [Cephulac] 20 gm PO BID #240 ml 01/10/24 01/22/24 Rx Sennosides [Senokot] 8.6 mg PO DAILY PRN tab 01/10/24 01/22/24 Rx guaiFENesin [Mucinex] 600 mg PO Q12H PRN tab 01/10/24 01/22/24 Rx polyethylene glycoL 3350 [Miralax] 17 gm PO DAILY #527 gm 01/10/24 01/22/24 Rx Aspirin EC [Ecotrin Low Dose] 81 mg PO DAILY 01/22/24 01/22/24 History Magnesium Hydroxide [Milk of 2,400 mg PO DAILY 01/22/24 01/22/24 History Magnesia] Naloxone HCl [Narcan] 4 mg NASAL DIRECTED PRN 01/22/24 01/22/24 History Ondansetron [Zofran] 4 mg PO Q6H PRN 01/22/24 01/22/24 History ALPRAZolam [Xanax] 0.5 mg PO Q8H PRN #9 tab 01/29/24 Rx Atorvastatin [Lipitor] 20 mg PO HS tab 01/29/24 Rx HYDROcodone/APAP 5-325MG [Norphlet 1 - 2 tab PO Q6HR PRN #14 tab 01/29/24 Rx 5-325] Spironolactone [Aldactone] 12.5 mg PO DAILY@1400 #30 tab 01/29/24 01/22/24 Rx droNABinol [Marinol] 5 mg PO AC-BID #12 cap 01/29/24 Rx Allergies Allergy/AdvReac Type Severity Reaction Status Date / Time No Known Allergies Allergy Verified 01/22/24 08:11 Physical Exam Vitals: Vital Signs Temp Pulse Resp BP Pulse Ox 01/29/24 08:47 98 01/29/24 07:37 97.6 F 81 18 119/72 98 01/29/24 01:28 98 F 75 16 93/64 100 01/28/24 20:00 16 01/28/24 19:37 97.5 F L 75 16 102/65 98 01/28/24 13:15 97.4 F L 74 18 128/79 97 Intake and Output 01/28/24 01/29/24 01/29/24 22:59 06:59 14:59 Intake Total 1020 Output Total 300 150 Balance 720 -150 Intake: Oral 1020 Output: Urine 300 150 Other: Voiding Method Incontinent Incontinent External Catheter External Catheter Results CBC & Chem 7: 01/28/24 08:24 01/28/24 08:24 Labs: Microbiology - Last 24 Hours (Table) 01/25/24 13:40 Blood Culture - Preliminary Blood 01/22/24 11:54 Anaerobic Culture - Final Buttock Finegoldia magna Peptoniphilus harei grp Prevotella disiens Assessment and Plan (1) Stage 3 skin ulcer of sacral region Current Visit: Yes Status: Acute Code(s): L98.429 - NON-PRESSURE CHRONIC ULCER OF BACK WITH UNSPECIFIED SEVERITY SNOMED Code(s): 56313861
--- NOTE | 2024-01-29 12:57 | P.PN ---
Subjective Progress Note Date: 01/29/24 SURGICAL PROGRESS NOTE CHIEF COMPLAINT: Sacral decubitus ulcer HISTORY OF PRESENT ILLNESS: Patient is status post debridement of sacral decubitus ulcer on 01/23/2024. Patient has no new complaints. Patient seen by wound care service for wound VAC recommendations. PHYSICAL EXAM: VITAL SIGNS: Reviewed. GENERAL: Well-developed in no acute distress. ABDOMEN: Soft. Nondistended. ASSESSMENT: 1. Sacral decubitus ulcer status post debridement PLAN: -Agree with wound VAC placement -Antibiotics per ID service -Continue local wound care -Recommend offloading -Patient can be discharged from surgical standpoint when medically cleared -Continue high-protein diet to promote wound healing Physician Secretary Book Keeper note has been reviewed by physician. Signing provider agrees with the documented findings, assessment, and plan of care. Objective - Vital Signs Vital signs: Vital Signs Temp 97.6 F 01/29/24 07:37 Pulse 81 01/29/24 07:37 Resp 18 01/29/24 07:37 BP 119/72 01/29/24 07:37 Pulse Ox 98 01/29/24 08:47 FiO2 Intake & Output 01/28/24 01/29/24 01/29/24 18:59 06:59 18:59 Intake Total 780 240 Output Total 300 150 Balance 480 90 Weight 30 kg Intake: Oral 780 240 Output: Urine 300 150 Other: Voiding Method Incontinent Incontinent Incontinent External Catheter External Catheter External Catheter # Voids 1 # Bowel Movements 1 - Labs CBC & Chem 7: 01/28/24 08:24 01/28/24 08:24 Labs: Microbiology - Last 24 Hours (Table) 01/25/24 13:40 Blood Culture - Preliminary Blood 01/22/24 11:54 Anaerobic Culture - Final Buttock Finegoldia magna Peptoniphilus harei grp Prevotella disiens
--- NOTE | 2024-01-29 15:45 | P.PN ---
Progress Note - Text Progress Note Date: 01/29/24 Patient is a 78 year old female with past medical history of asthma, CAD, COPD, GERD, hyperlipidemia, hypertension, history of SVT and a recent left proximal femur periprosthetic fracture presented to the ED from her [facility] due to elevated white blood cell count. Patient has a severe sacral wound since 1 week. Patient mentions she was admitted in the hospital recently for a left proximal femur periprosthetic fracture that was managed conservatively. She does complain of pain on her hips that isn't getting better. Upon discharge from the hospital she went to the [facility] for [facility]. She mentions not having good strength, which is why she is lying in the bed most of the day. Two days ago when she tried to ambulate using the walker she had a fall. She fell prone, didn't lose consciousness but mentions hitting her head. She was not able to get up on her own and was lying on the floor for 1 hour before she had help available. Addtionally, she states using 2L oxygen at home throughout the day. She also reports having shortness of breath, coughing with dark green phlegm production and constipation for which she usually take MiraLAX at home. Denies fever, chills, chest pain, abdominal pain, nausea, vomiting, dysuria, hematuria, hematochezia, melena, headache, blurry vision, double vision, slurring of speech. ED documentation reviewed. In the ED patient was treated with nebulizer milligram, dextrose, [place], insulin, ondansetron, Zosyn, 0.9 normal saline, calcium gluconate. Vitals on admission T 97.6 F, [place] 96 bpm, RR 20, BP 106/63, O2 sat 96% on 3 L nasal cannula EKG independently interpreted as sinus rhythm, rate 95 bpm, QTc [address] shows fairly moderate-sized posterior sacral thin-walled fluid collection having internal foci of air worrisome for abscess, No definitive bony destruction to suggest acute osteomyelitis but fluid collection does abut posterior margin of the lower sacrum Labs on admission show WBC 29.4, hemoglobin 7.2, hematocrit 25.7, MCV 74.3, RDW 19.4, platelet count 971, ESR more than 130, sodium 128, potassium 5.4, BUN 43, creatinine 0.75, ALP 129, CRP 51.6, lipase 11, lactic acid 1.5, glucose 57 UA shows specific gravity 1.050 01/23/24: No acute events overnight. She underwent debridement of the ulcer today. Respiratory panel was negative. Her pulse today is 123. pro-BNP is 2360. Labs today show WBC 28.2 hemoglobin 7.1, MCV 77.9, RDW 19.6, platelet count 826, sodium 134, potassium 4.7, BUN 21, creatinine 0.46. Blood culture shows no growth after 24 hours. Gram stain of the sacral ulcer shows many PMN and gram positive cocci. Chest Xray shows COPD with mild diffuse interstitial infiltrate worsened from 01/11/2024 consider atypical or COVID-pneumonia/interstitial pneumonitis/sequel of CHF. Possible trace right pleural effusion. Attention on follow-up to exclude underlying left midlung pulmonary nodule. 01/24/24: Patient seen and examined at bedside today. She received 1 unit PRBC yesterday. No new complaints today. Blood culture shows gram positive cocci in clusters. 01/25/24: Patient evaluated at bedside. Her pulse today is 117 bpm. She is currently on 3L O2 via nasal cannula. She reports of pain at the ulcer site. Denies shortness of breath. Labs today show WBC 13.6, hemoglobin 7.8, platelet count 615, sodium 134. Aerobic wound culture shows few normal skin french. 01/26/24: Patient examined today. No acute events overnight. She is currently saturating well on 3L O2 via nasal cannula. No new complaints today. Labs today show hemoglobin 7.6 MCV 81.8, platelet count 594, sodium 138, BUN 7.3, creatinine 0.2. 01/27/2024 Patient is elevated today in follow-up in the medical floor. She is postoperative surgical debridement of the sacral decubitus ulceration. Wound cultures final blood cultures are pending. Her preliminary blood culture shows gram-positive cocci and currently pending at this time. Labs today reveal a white blood cell count 12.7, hemoglobin 9.9, sodium 133, BUN of 6, creatinine 0.33. January 28, 2024: I assumed care of the patient today. Eating better. Says is little pain. Oxygen to be tapered off. Consult dietitian for malnutrition. January 28: Saw the patient this morning. Repeat blood cultures are pending. Spoke to social media marketing analyst regarding wound VAC at the [facility]. Also antibiotics per Dr. Ordonez. Waiting for cultures to come back negative. Patient's breathing better. Active Medications Acetaminophen (Acetaminophen Tab 325 Mg Tab) 650 mg PO Q6HR PRN PRN Reason: Mild Pain or Fever > 100.5 Last Admin: 01/26/24 08:37 Dose: 650 mg Hydrocodone Bitart/Acetaminophen (Hydrocodone/Apap 5-325mg 1 Each Tab) 1 each PO Q4HR PRN PRN Reason: Moderate Pain (Scale 4 to 6) Last Admin: 01/28/24 20:05 Dose: 1 each Albuterol Sulfate (Albuterol Nebulized 2.5 Mg/3 Ml) 2.5 mg INHALATION RT-Q4H PRN PRN Reason: Shortness Of Breath Last Admin: 01/25/24 15:21 Dose: 2.5 mg Albuterol/Ipratropium (Ipratropium-Albuterol 3 Ml Neb) 3 ml INHALATION RT-QID [facility] Last Admin: 01/29/24 11:55 Dose: Not Given Alprazolam (Alprazolam 0.5 Mg Tab) 0.5 mg PO Q8H PRN PRN Reason: Anxiety Last Admin: 01/29/24 09:17 Dose: 0.5 mg Aspirin (Aspirin 81 Mg) 81 mg PO DAILY [facility] Last Admin: 01/29/24 09:17 Dose: 81 mg Atorvastatin Calcium (Atorvastatin 20 Mg Tab) 20 mg PO HS [facility] Last Admin: 01/28/24 20:05 Dose: 20 mg Dronabinol (Dronabinol 2.5 Mg Cap) 5 mg PO AC-BID [facility] Last Admin: 01/29/24 09:17 Dose: 5 mg Enoxaparin Sodium (Enoxaparin 40 Mg/0.4 Ml Syringe) 40 mg SQ DAILY [facility] Last Admin: 01/29/24 09:17 Dose: 40 mg Hydromorphone HCl (Hydromorphone 1 Mg/Ml 1 Ml Syringe) 1 mg IVP Q3HR PRN PRN Reason: Severe Pain (7-10) Last Admin: 01/24/24 16:19 Dose: 1 mg Ampicillin Sodium/Sulbactam (Sodium 3 gm/ Sodium Chloride) 100 mls @ 200 mls/hr IVPB Q6HR [facility]; Protocol Last Admin: 01/29/24 13:19 Dose: 200 mls/hr Metoprolol Succinate (Metoprolol Succinate (Er) 50 Mg Tab.Er.24h) 50 mg PO DAILY [facility] Last Admin: 01/29/24 09:17 Dose: 50 mg Montelukast Sodium (Montelukast 10 Mg Tab) 10 mg PO HS [facility] Last Admin: 01/28/24 20:05 Dose: 10 mg Naloxone HCl (Naloxone 0.4 Mg/Ml 1 Ml Vial) 0.2 mg IV Q2M PRN PRN Reason: Opioid Reversal Ondansetron HCl (Ondansetron 4 Mg/2 Ml Vial) 4 mg IVP Q8HR PRN PRN Reason: Nausea And Vomiting Last Admin: 01/23/24 10:15 Dose: 4 mg Pantoprazole Sodium (Pantoprazole 40 Mg Tablet) 40 mg PO AC-BRKFST [facility] Last Admin: 01/29/24 09:17 Dose: 40 mg Sertraline HCl (Sertraline 100 Mg Tab) 200 mg PO DAILY [facility] Last Admin: 01/29/24 09:17 Dose: 200 mg On examination: VITAL SIGNS: 97.7, 76, 16, 103 x 67, 100% on 2 L GENERAL APPEARANCE: BMI 11.7. Loss of subcutaneous fat prominent bones. Laying in bed. HEENT: Normal external appearance of nose and ear. Oral cavity normal EYES: Pupils equal. Conjunctiva normal. NECK: JVD not raised. Mass not palpable. RESPIRATORY: Respiratory effort increased lungs wheezing, decreased breath sounds CARDIOVASCULAR: First and second sounds normal. No edema. ABDOMEN: Soft. Liver and spleen not palpable. No tenderness. No mass palpable. PSYCHIATRY: Alert and oriented x3. Mood and affect normal. Assessment and plan: -Sacral decubitus ulceration unstageable with sepsis present on admission Patient is s/p surgical debridement of the sacral decubitus ulcer there was necrotic skin fat and muscle. Wound culture growing multiple organisms IV Unasyn -Gram positive bacteremia likely skin source -Anorexia continue dronabinol as an appetite stimulant -Microcytic anemia status post 1 unit of packed red blood cells -COPD with mild exacerbation Add DuoNeb 4 times daily -Gastroesophageal reflux disease Protonix -Anxiety/depression Zoloft. -Hyperlipidemia Lipitor Hypovolemic hyponatremia -No code IV Unasyn. Awaiting repeat blood cultures to be negative. Patient will be discharged to the [facility] with a wound VAC. Hopefully tomorrow.
--- NOTE | 2024-01-29 15:54 | P.PN ---
Subjective Progress Note Date: 01/29/24 Principal diagnosis: Reason for follow-up is infected sacral pressure ulcer Patient is a 78-year-old female with a past medical history significant for hypertension hyperlipidemia pneumonia COPD asthma patient is a [facility] resident and the patient has been sent to the ER concerning for possible sepsis as the patient was noted to have elevated white count of 30 and did have a sacral wound with significant amount of necrotic tissue with abnormal CT suggestive of abscess and possible source of infection. Patient is status post debridement of the sacral pressure ulcer of the necrotic skin and fat and muscle no cultures were done On today's evaluation that is 01/29/2024, Patient is afebrile this morning patient denies having any chest pain shortness of breath or cough, the patient is currently on 2 L nasal oxygen and no worsening diarrhea has been reported still complaining of some discomfort to the sacral wound area. patient white count is 14.6, creatinine 0.40 stool for C. difficile has been canceled Objective - Vital Signs Vital signs: Vital Signs Temp 97.7 F 01/29/24 13:11 Pulse 76 01/29/24 13:11 Resp 16 01/29/24 13:11 BP 103/67 01/29/24 13:11 Pulse Ox 100 01/29/24 13:11 FiO2 Intake & Output 01/28/24 01/29/24 01/29/24 18:59 06:59 18:59 Intake Total 780 240 Output Total 300 150 Balance 480 90 Weight 30 kg Intake: Oral 780 240 Output: Urine 300 150 Other: Voiding Method Incontinent Incontinent Incontinent External Catheter External Catheter External Catheter # Voids 1 # Bowel Movements 1 - Exam GENERAL DESCRIPTION: An elderly female lying in bed in no distress RESPIRATORY SYSTEM: Unlabored breathing , decreased breath sounds at bases HEART: S1 S2 regular rate and rhythm , ABDOMEN: Soft , no tenderness Patient did have a stage IV sacral wound currently dressed EXTREMITIES: No edema feet - Labs CBC & Chem 7: 01/28/24 08:24 01/28/24 08:24 Labs: Microbiology - Last 24 Hours (Table) 01/25/24 13:40 Blood Culture - Preliminary Blood 01/22/24 11:54 Anaerobic Culture - Final Buttock Finegoldia magna Peptoniphilus harei grp Prevotella disiens Assessment and Plan (1) Unstageable pressure ulcer of sacral region Current Visit: Yes Status: Acute Code(s): L89.150 - PRESSURE ULCER OF SACRAL REGION, UNSTAGEABLE SNOMED Code(s): 67766879678536996 (2) Abscess of sacrum Current Visit: Yes Status: Acute Code(s): M46.28 - OSTEOMYELITIS OF VERTEBRA, SACRAL AND SACROCOCCYGEAL REGION SNOMED Code(s): 483921545 (3) Sepsis Current Visit: No Status: Acute Code(s): A41.9 - SEPSIS, UNSPECIFIED ORG ANISM SNOMED Code(s): 66368373 (4) Bacteremia Current Visit: Yes Status: Acute Code(s): R78.81 - BACTEREMIA SNOMED Code(s): 8405496 Plan: 1patient presented to hospital with sepsis in this patient who did have elevate d white count tachycardia and mild hypotension source is infected sacral pressure ulcer and will need to cover for both gram-positive as well as gram- negative pathogen 2-patient is status post surgical debridement of the infected sacral pressure ulcer no cultures were done 3patient also have a positive blood culture with gram-positive cocci ID sensitivities pending blood culture repeat has been negative 4-patient remains to be afebrile and the patient white count is trending up and the patient has developed diarrhea stool for C. difficile was requested but canceled per institution policy 5wound care has seen the patient care were discussed with them wound VAC has been ordered 6for now continue with Unasyn as the patient has cleared her bacteremia she is good to go for PICC line placement for outpatient IV antibiotics Dictation was produced using [employer] dictation software. please excuse any grammatical, word or spelling errors.
[2024-01-29] MEDS ORDERED: ZINC OXIDE PASTE (Z-GUARD) 1 APPLIC TOPICAL PRN (19:15)
[2024-01-30 07:42] VITALS: RESP 16; TEMP 97.6
--- NOTE | 2024-01-30 12:37 | P.PN ---
Subjective Progress Note Date: 01/30/24 SURGICAL PROGRESS NOTE CHIEF COMPLAINT: Sacral decubitus ulcer HISTORY OF PRESENT ILLNESS: Patient is status post debridement of sacral decubitus ulcer on 01/23/2024. Patient has no new complaints. Patient seen by wound care service for wound VAC recommendations. Patient scheduled for discharge to [facility] today. Afebrile. PHYSICAL EXAM: VITAL SIGNS: Reviewed. GENERAL: Well-developed in no acute distress. ABDOMEN: Soft. Nondistended. ASSESSMENT: 1. Sacral decubitus ulcer status post debridement PLAN: -Patient can be discharge from surgical standpoint -Agree with wound VAC placement at [facility] -Antibiotics per infectious disease -Continue high-protein diet to promote wound healing Physician Family Service Aide note has been reviewed by physician. Signing provider agrees with the documented findings, assessment, and plan of care. Objective - Vital Signs Vital signs: Vital Signs Temp 97.6 F 01/30/24 07:20 Pulse 68 01/30/24 08:00 Resp 16 01/30/24 08:00 BP 129/86 01/30/24 07:20 Pulse Ox 95 01/30/24 07:58 FiO2 Intake & Output 01/29/24 01/30/24 01/30/24 18:59 06:59 18:59 Intake Total 310 Balance 310 Intake: Intake, IV Titration 310 Amount Ampicillin-Sulbactam 3 gm 100 In Sodium Chloride 0.9% 100 ml @ 200 mls/hr IVPB Q6HR [facility] Rx#:[id number] IV Fluid Continuation 1, 210 000 ml @ 0 mls/hr IV .[facility] Rx#:[id number] Other: Voiding Method Incontinent Incontinent Incontinent External Catheter External Catheter External Catheter - Labs CBC & Chem 7: 01/28/24 08:24 01/28/24 08:24
[2024-01-30 14:03] VITALS: BP 132/87; PULSE 73
--- NOTE | 2024-01-30 16:08 | P.DS ---
Providers Date of admission: 01/21/24 22:44 Expected date of discharge: 01/30/24 Attending physician: Gerald Isaac Consults: 01/21/24 22:41 Consult Physician Urgent Consulting Provider: Priyank Steen Consult Reason/Comments: abscess of bedsore Do you want consulting provider notified?: Yes, Notify in am Consult Physician Urgent Consulting Provider: Shahla Ritter Consult Reason/Comments: abscess of bedsore Do you want consulting provider notified?: Yes, Notify in am Primary care physician: [facility] Course: Patient is a 78 year old female with past medical history of asthma, CAD, COPD, GERD, hyperlipidemia, hypertension, history of SVT and a recent left proximal femur periprosthetic fracture presented to the ED from her shelter due to elevated white blood cell count. Patient has a severe sacral wound since 1 week. Patient mentions she was admitted in the hospital recently for a left proximal femur periprosthetic fracture that was managed conservatively. She does complain of pain on her hips that isn't getting better. Upon discharge from the hospital she went to the shelter for rehabilitation. She mentions not having good strength, which is why she is lying in the bed most of the day. Two days ago when she tried to ambulate using the walker she had a fall. She fell prone, didn't lose consciousness but mentions hitting her head. She was not able to get up on her own and was lying on the floor for 1 hour before she had help available. Addtionally, she states using 2L oxygen at home throughout the day. She also reports having shortness of breath, coughing with dark green phlegm production and constipation for which she usually take MiraLAX at home. Denies fever, chills, chest pain, abdominal pain, nausea, vomiting, dysuria, hematuria, hematochezia, melena, headache, blurry vision, double vision, slurring of speech. ED documentation reviewed. In the ED patient was treated with nebulizer milligram, dextrose, [place], insulin, ondansetron, Zosyn, 0.9 normal saline, calcium gluconate. Vitals on admission T 97.6 F, OH 96 bpm, RR 20, BP 106/63, O2 sat 96% on 3 L nasal cannula EKG independently interpreted as sinus rhythm, rate 95 bpm, QTc [address] shows fairly moderate-sized posterior sacral thin-walled fluid collection having internal foci of air worrisome for abscess, No definitive bony destruction to suggest acute osteomyelitis but fluid collection does abut posterior margin of the lower sacrum Labs on admission show WBC 29.4, hemoglobin 7.2, hematocrit 25.7, MCV 74.3, RDW 19.4, platelet count 971, ESR more than 130, sodium 128, potassium 5.4, BUN 43, creatinine 0.75, ALP 129, CRP 51.6, lipase 11, lactic acid 1.5, glucose 57 UA shows specific gravity 1.050 01/23/24: No acute events overnight. She underwent debridement of the ulcer today. Respiratory panel was negative. Her pulse today is 123. pro-BNP is 2360. Labs today show WBC 28.2 hemoglobin 7.1, MCV 77.9, RDW 19.6, platelet count 826, sodium 134, potassium 4.7, BUN 21, creatinine 0.46. Blood culture shows no growth after 24 hours. Gram stain of the sacral ulcer shows many PMN and gram positive cocci. Chest Xray shows COPD with mild diffuse interstitial infiltrate worsened from 01/11/2024 consider atypical or COVID-pneumonia/interstitial pneumonitis/sequel of CHF. Possible trace right pleural effusion. Attention on follow-up to exclude underlying left midlung pulmonary nodule. 01/24/24: Patient seen and examined at bedside today. She received 1 unit PRBC yesterday. No new complaints today. Blood culture shows gram positive cocci in clusters. 01/25/24: Patient evaluated at bedside. Her pulse today is 117 bpm. She is currently on 3L O2 via nasal cannula. She reports of pain at the ulcer site. Denies shortness of breath. Labs today show WBC 13.6, hemoglobin 7.8, platelet count 615, sodium 134. Aerobic wound culture shows few normal skin french. 01/26/24: Patient examined today. No acute events overnight. She is currently saturating well on 3L O2 via nasal cannula. No new complaints today. Labs today show hemoglobin 7.6 MCV 81.8, platelet count 594, sodium 138, BUN 7.3, creatinine 0.2. 01/27/2024 Patient is elevated today in follow-up in the medical floor. She is postoperative surgical debridement of the sacral decubitus ulceration. Wound cultures final blood cultures are pending. Her preliminary blood culture shows gram-positive cocci and currently pending at this time. Labs today reveal a w harrison blood cell count 12.7, hemoglobin 9.9, sodium 133, BUN of 6, creatinine 0.33. January 28, 2024: I assumed care of the patient today. Eating better. Says is little pain. Oxygen to be tapered off. Consult dietitian for malnutrition. January 28: Saw the patient this morning. Repeat blood cultures are pending. Spoke to social science research assistant regarding wound VAC at the [facility]. Also antibiotics per Dr. Ritter. Waiting for cultures to come back negative. Patient's breathing better. January 29: Comfortable. Tolerating diet. Breathing stable. Discharge to [facility]. That On examination: VITAL SIGNS: 97.6, 73, 16, 132.87, 99% 2 L GENERAL APPEARANCE: BMI 11.7. Loss of subcutaneous fat prominent bones. Laying in bed. HEENT: Normal external appearance of nose and ear. Oral cavity normal EYES: Pupils equal. Conjunctiva normal. NECK: JVD not raised. Mass not palpable. RESPIRATORY: Respiratory effort increased lungs wheezing, decreased breath sounds CARDIOVASCULAR: First and second sounds normal. No edema. ABDOMEN: Soft. Liver and spleen not palpable. No tenderness. No mass palpable. PSYCHIATRY: Alert and oriented x3. Mood and affect normal. INVESTIGATIONS, reviewed in the clinical context: January 27: White count 14.6 hemoglobin 9.2 platelets 822 sodium 133 potassium 3.6 creatinine 0.4 Wound culture: Multiple organisms Blood culture [January 24]: Negative for now Assessment and plan: -Sacral decubitus ulceration unstageable with sepsis present on admission Patient is s/p surgical debridement of the sacral decubitus ulcer there was necrotic skin fat and muscle. Wound culture growing multiple organisms IV Unasyn Wound VAC to be used at [facility] Follow-up outpatient Dr. Peres from [place] and Dr Steen -Gram positive bacteremia likely skin source -Anorexia continue dronabinol as an appetite stimulant -Microcytic anemia status post 1 unit of packed red blood cells -COPD with mild exacerbation DuoNeb -Gastroesophageal reflux disease Protonix -Anxiety/depression Zoloft. -Hyperlipidemia Lipitor Hypovolemic hyponatremia -No code Disposition: [facility] Plan - Discharge Summary Discharge Rx Participant: No New Discharge Prescriptions: New Atorvastatin [Lipitor] 20 mg PO HS tab droNABinol [Marinol] 5 mg PO AC-BID #12 cap Ampicillin-Sulbactam [Unasyn 3 gm vial] 3 gm IVPB Q6HR #100 each Continue Montelukast Sodium [Singulair] 10 mg PO HS Sertraline [Zoloft] 200 mg PO DAILY Omeprazole 20 mg PO DAILY Metoprolol Succinate (ER) [Toprol XL] 50 mg PO DAILY Ipratropium-Albuterol Nebulize [Duoneb 0.5 mg-3 mg/3 ml Soln] 3 ml INHALATION RT-Q6H PRN PRN Reason: Shortness Of Breath Mometasone/Formoterol [Dulera 200 Mcg-5 Mcg Inhaler] 2 puff INHALATION RT-BID Ferrous Sulfate [Iron (65 MG Elemental)] 325 mg PO DAILY polyethylene glycoL 3350 [Miralax] 17 gm PO DAILY #527 gm Sennosides [Senokot] 8.6 mg PO DAILY PRN tab PRN Reason: Constipation Ondansetron [Zofran] 4 mg PO Q6H PRN PRN Reason: Nausea And Vomiting Albuterol Sulfate [Ventolin HFA] 2 puff INHALATION RT-Q4H PRN PRN Reason: Shortness Of Breath Ipratropium/Albuterol Sulfate [Combivent Respimat Inhaler] 1 puff INHALATION RT-QID Acetaminophen [Tylenol Extra Strength] 1,000 mg PO Q6H PRN PRN Reason: Fever And/ Or Pain Lactulose [Cephulac] 20 gm PO BID #240 ml Enoxaparin [Lovenox] 40 mg SQ DAILY each guaiFENesin [Mucinex] 600 mg PO Q12H PRN tab PRN Reason: Congestion Aspirin EC [Ecotrin Low Dose] 81 mg PO DAILY Magnesium Hydroxide [Milk of Magnesia] 2,400 mg PO DAILY Naloxone HCl [Narcan] 4 mg NASAL DIRECTED PRN PRN Reason: suspected opioid overdose HYDROcodone/APAP 5-325MG [[place] 5-325] 1 - 2 tab PO Q6HR PRN #14 tab PRN Reason: Pain Changed ALPRAZolam [Xanax] 0.5 mg PO Q8H PRN #9 tab PRN Reason: Anxiety Spironolactone [Aldactone] 12.5 mg PO DAILY@1400 #30 tab Discontinued Simvastatin [Zocor] 40 mg PO HS lisinopriL [Zestril] 2.5 mg PO DAILY Sulfamethox-Tmp 800-160Mg [Bactrim DS 800-160 mg] 1 tab PO Q12HR Melatonin 10 mg PO HS Discharge Medication List Montelukast Sodium [Singulair] 10 mg PO HS 03/01/16 [History] Albuterol Sulfate [Ventolin HFA] 2 puff INHALATION RT-Q4H PRN 06/20/21 [History] Ipratropium/Albuterol Sulfate [Combivent Respimat Inhaler] 1 puff INHALATION RT- QID 06/20/21 [History] Omeprazole 20 mg PO DAILY 06/20/21 [History] Sertraline [Zoloft] 200 mg PO DAILY 06/20/21 [History] Acetaminophen [Tylenol Extra Strength] 1,000 mg PO Q6H PRN 11/08/21 [History] Metoprolol Succinate (ER) [Toprol XL] 50 mg PO DAILY 02/25/22 [History] Ipratropium-Albuterol Nebulize [Duoneb 0.5 mg-3 mg/3 ml Soln] 3 ml INHALATION RT-Q6H PRN 02/21/23 [History] Ferrous Sulfate [Iron (65 MG Elemental)] 325 mg PO DAILY 01/07/24 [History] Mometasone/Formoterol [Dulera 200 Mcg-5 Mcg Inhaler] 2 puff INHALATION RT-BID 01/07/24 [History] Enoxaparin [Lovenox] 40 mg SQ DAILY each 01/10/24 [Rx] Lactulose [Cephulac] 20 gm PO BID #240 ml 01/10/24 [Rx] Sennosides [Senokot] 8.6 mg PO DAILY PRN tab 01/10/24 [Rx] guaiFENesin [Mucinex] 600 mg PO Q12H PRN tab 01/10/24 [Rx] polyethylene glycoL 3350 [Miralax] 17 gm PO DAILY #527 gm 01/10/24 [Rx] Aspirin EC [Ecotrin Low Dose] 81 mg PO DAILY 01/22/24 [History] Magnesium Hydroxide [Milk of Magnesia] 2,400 mg PO DAILY 01/22/24 [History] Naloxone HCl [Narcan] 4 mg NASAL DIRECTED PRN 01/22/24 [History] Ondansetron [Zofran] 4 mg PO Q6H PRN 01/22/24 [History] ALPRAZolam [Xanax] 0.5 mg PO Q8H PRN #9 tab 01/29/24 [Rx] Atorvastatin [Lipitor] 20 mg PO HS tab 01/29/24 [Rx] HYDROcodone/APAP 5-325MG [[place] 5-325] 1 - 2 tab PO Q6HR PRN #14 tab 01/29/24 [Rx] Spironolactone [Aldactone] 12.5 mg PO DAILY@1400 #30 tab 01/29/24 [Rx] droNABinol [Marinol] 5 mg PO AC-BID #12 cap 01/29/24 [Rx] Ampicillin-Sulbactam [Unasyn 3 gm vial] 3 gm IVPB Q6HR #100 each 01/30/24 [Rx] Follow up Appointment(s)/Referral(s): Gary Haley DO [Primary Care Provider] - 1-2 days Shahla Ritter MD [STAFF PHYSICIAN] - 3 Weeks Priyank Steen MD [STAFF PHYSICIAN] - 2 Weeks Activity/Diet/Wound Care/Special Instructions: wound vac orders per wound care team wound careorders per surgery/wound care team antibiotics per dr ritter
--- NOTE | 2024-01-31 13:07 | P.PN ---
Subjective Progress Note Date: 01/30/24 Principal diagnosis: Reason for follow-up is infected sacral pressure ulcer Patient is a 78-year-old female with a past medical history significant for hypertension hyperlipidemia pneumonia COPD asthma patient is a [facility] resident and the patient has been sent to the ER concerning for possible sepsis as the patient was noted to have elevated white count of 30 and did have a sacral wound with significant amount of necrotic tissue with abnormal CT suggestive of abscess and possible source of infection. Patient is status post debridement of the sacral pressure ulcer of the necrotic skin and fat and muscle no cultures were done On today's evaluation that is 01/30/2024,the patient denies any fever or any chills, patient is breathing comfortably on room air, the patient denies chest pain shortness of breath and no significant cough, patient denies abdominal pain, no nausea vomiting and no worsening diarrhea reported. No new lab has been obtained today blood culture negative Objective - Vital Signs Vital signs: Vital Signs Temp 97.6 F 01/30/24 07:20 Pulse 68 01/30/24 08:00 Resp 16 01/30/24 08:00 BP 129/86 01/30/24 07:20 Pulse Ox 95 01/30/24 07:58 FiO2 Intake & Output 01/29/24 01/30/24 01/30/24 18:59 06:59 18:59 Intake Total 310 Balance 310 Intake: Intake, IV Titration 310 Amount Ampicillin-Sulbactam 3 gm 100 In Sodium Chloride 0.9% 100 ml @ 200 mls/hr IVPB Q6HR [facility] Rx#:[id number] IV Fluid Continuation 1, 210 000 ml @ 0 mls/hr IV .[facility] Rx#:[id number] Other: Voiding Method Incontinent Incontinent Incontinent External Catheter External Catheter External Catheter - Exam GENERAL DESCRIPTION: An elderly female lying in bed in no distress RESPIRATORY SYSTEM: Unlabored breathing , decreased breath sounds at bases HEART: S1 S2 regular rate and rhythm , ABDOMEN: Soft , no tenderness Patient did have a stage IV sacral wound currently dressed EXTREMITIES: No edema feet - Labs CBC & Chem 7: 01/28/24 08:24 01/28/24 08:24 Assessment and Plan (1) Unstageable pressure ulcer of sacral region Status: Acute Code(s): L89.150 - PRESSURE ULCER OF SACRAL REGION, UNSTAGEABLE SNOMED Code(s): 49902445402328001 (2) Abscess of sacrum Status: Acute Code(s): M46.28 - OSTEOMYELITIS OF VERTEBRA, SACRAL AND SACROCOCCYGEAL REGION SNOMED Code(s): 514313983 (3) Sepsis Status: Acute Code(s): A41.9 - SEPSIS, UNSPECIFIED ORGANISM SNOMED Code(s): 07889644 (4) Bacteremia Status: Acute Code(s): R78.81 - BACTEREMIA SNOMED Code(s): 0866075 Plan: 1patient presented to hospital with sepsis in this patient who did have elevated white count tachycardia and mild hypotension source is infected sacral pressure ulcer and will need to cover for both gram-positive as well as gram- negative pathogen 2-patient is status post surgical debridement of the infected sacral pressure ulcer no cultures were done 3patient also have a positive blood culture with gram-positive cocci ID sensitivities pending blood culture repeat has been negative 4-wound care has seen the patient care were discussed with them wound VAC has been ordered 6patient to get a PICC line today and will continue with IV Unasyn for about 5 weeks on discharge and close outpatient follow-up Dictation was produced using [employer] dictation software. please excuse any grammatical, word or spelling errors. Time with Patient: Less than 30
== END 2024-01-30 17:54 | DRG 853 ==
LOC: EC 18:35 → 3SCARD 22:44 → 5NMEDONC 01-25 15:55
PROVIDERS: ADMIT Hospitalist; ATTEND Hospitalist
PROC: 0KBP0ZZ Excision of Left Hip Muscle, Open Approach (ICD-10-PCS; principal; 2024-01-23 11:00)
PROC: 0KBN0ZZ Excision of Right Hip Muscle, Open Approach (ICD-10-PCS; principal; 2024-01-23 11:00)
DX: A41.9 Sepsis, unspecified organism (principal); L89.153 Pressure ulcer of sacral region, stage 3; E87.1 Hypo-osmolality and hyponatremia; E46 Unspecified protein-calorie malnutrition; M46.28 Osteomyelitis of vertebra, sacral and sacrococcygeal region; I96 Gangrene, not elsewhere classified; J44.1 Chronic obstructive pulmonary disease with (acute) exacerbation; D50.9 Iron deficiency anemia, unspecified; E78.5 Hyperlipidemia, unspecified; F41.9 Anxiety disorder, unspecified; I10 Essential (primary) hypertension; L89.150 Pressure ulcer of sacral region, unstageable; I25.10 Atherosclerotic heart disease of native coronary artery without angina pectoris; F32.A Depression, unspecified; K21.9 Gastro-esophageal reflux disease without esophagitis; B96.89 Other specified bacterial agents as the cause of diseases classified elsewhere; E86.1 Hypovolemia; E87.5 Hyperkalemia; K59.00 Constipation, unspecified; W19.XXXA Unspecified fall, initial encounter; Z79.51 Long term (current) use of inhaled steroids; Z79.82 Long term (current) use of aspirin; Z79.899 Other long term (current) drug therapy; Z82.49 Family history of ischemic heart disease and other diseases of the circulatory system; Z87.891 Personal history of nicotine dependence; Z96.642 Presence of left artificial hip joint
CPT/HCPCS: 36415; 36573; 71045; 72193; 80048; 80053; 80202; 81003; 83605; 83690; 83880; 84132; 85025; 85027; 85652; 86140; 86850; 86870; 86880; 86900; 86901; 86902; 86920; 87040; 87070; 87075; 87205; 87636; 88304; 93005; 94640; 94760; 96361; 96365; 96366; 96367; 96375; 99285